=== PATIENT | male | born 1955 | race Two or more races ===

== ENCOUNTER 2020-06-29 10:13 | Emergency (ER) | payer MEDICARE, OTHER, SELFPAY ==
--- NOTE | ~2020-06-29 | CT_ITS ---
EXAMINATION: CT ABDOMEN AND PELVIS WITHOUT CONTRAST CLINICAL INFORMATION: Lower quadrant and left flank pain. COMPARISON: CT abdomen and pelvis 10/21/2025 TECHNIQUE: Multidetector volumetric imaging was performed from the superior aspect of the liver through the pubic symphysis. Sagittal and coronal reformatted images were obtained on the technologist's workstation. This CT examination was performed using dose optimization techniques as appropriate, variously including the following: *Automated exposure control *Adjustment of mA and/or kV according to patient size (this includes techniques or standardized protocols for targeted exams where dose is matched to indication/reason for exam; i.e. extremities or head) *Use of iterative reconstruction technique DLP: 1113 mGy-cm FINDINGS: LUNG BASES: Minimal atelectatic changes as seen in lung bases. Heart size is normal. Suspect small hiatal hernia. LIVER, GALLBLADDER, AND BILIARY TREE: The liver is normal in size, shape, and attenuation. No focal hepatic lesion or biliary ductal dilatation is present. The gallbladder is unremarkable with no evidence of radiopaque gallstones, gallbladder wall thickening, or obvious pericholecystic inflammatory changes. PANCREAS: Unremarkable. SPLEEN: Unremarkable. ADRENAL GLANDS: Unremarkable. KIDNEYS AND URETERS: The kidneys are normal in size, shape, and attenuation. No hydronephrosis, hydroureter, or calculi seen. There is bilateral perinephric stranding. BLADDER: Unremarkable. GASTROINTESTINAL TRACT: There is scattered stool, diverticula and gas seen throughout the colon without distention. There is no mural thickening and pericolic fat stranding seen to suspect diverticulitis at this time. The small bowel loops are normal caliber. There is no free air or free fluid. Appendix is normal caliber. ABDOMINAL WALL: No significant hernia is appreciated. LYMPH NODES: Normal. VASCULAR: Unremarkable. PELVIC VISCERA: There is no free air or free fluid. No pelvic mass seen. OSSEOUS STRUCTURES: There is moderate ventral spondylosis throughout lumbar spine. There is moderate left L5-S1 and bilateral L4-L5 and L3-L4 facet joint arthropathy. No lytic or sclerotic process seen. CT/CT abdomen pelvis wo con IMPRESSION: [Diffuse sigmoid and scattered rest of colon diverticulosis without diverticulitis. There is mild constipation. Degenerative ventral spondylosis throughout lumbar spine.
--- NOTE | 2020-06-29 10:28 | ED.ABDPAIN ---
HPI - Abdominal Pain General Chief Complaint: Abdominal Pain Stated Complaint: LOW ABD PAIN BACK AND HIP Time Seen by Provider: 06/29/20 10:28 Source: patient Mode of arrival: ambulatory Limitations: no limitations History of Present Illness MD elicited complaint: abdominal pain and flank pain Onset (ago): day(s) (4) Pain Consistency: constant Location: LLQ and L flank Severity: moderate Quality: cramping, aching and fullness Radiation: none Migration to: LLQ Exacerbating factors: movement Relieving factors: nothing Associated symptoms: denies other symptoms Treatments prior to arrival: NSAIDs Related Data Previous Rx's Medication Instructions Recorded cefuroxime axetil 500 mg PO BID 10 Days #20 tab 06/29/20 hydrocodone-acetaminophen 1 tab PO Q6H PRN #12 tab 06/29/20 Allergies Allergy/AdvReac Type Severity Reaction Status Date / Time No Known Allergies Allergy Unverified 05/22/20 14:25 [No Known Allergies*] Review of Systems Review of Systems Constitutional : No Weight loss, No Fever, No Chills ENT/Mouth : No sore throat, No Rhinorrhea Eyes: No Swelling, No Redness Cardiovascular : No Chest Pain, No SOB, NoEdema Respiratory : No Cough, No Sputum, No Wheezing Gastrointestinal : no Nausea, no Vomiting, no Diarrhea, positive abdominal Pain, No Hematochezia, No Melena Genitourinary : No Dysuria, No Urinary Frequency, No Hematuria, No Urgency Musculoskeletal : No joint pain, No Myalgias, No Joint Swelling, back pain Skin : No Skin Lesions, No rash Neuro : No Weakness, No Numbness, No Dizziness, No Headache Psych : No Anxiety/Panic, No Depression Heme/Lymph: No Bruising, No Lymphadenopathy Endocrine : No Polyuria, No Polydipsia All other systems reviewed and are negative. Physical Exam Vital Signs: Vital Signs: Last Vital Signs Temp 98.2 F 06/29/20 10:34 Pulse 63 06/29/20 10:34 Resp 18 06/29/20 10:34 Pulse Ox 98 06/29/20 10:34 Body Mass Index 28.8 Appearance: Alert. Oriented X3. No acute distress. Eyes: Pupils equal, round and reactive to light. ENT: Pharynx normal. Neck: Normal inspection. Neck supple. CVS: Normal heart rate and rhythm. Pulses normal. Respiratory: No respiratory distress. Breath sounds normal. Abdomen: Soft and mild ttp in LLQ no rebound or guarding Skin: Skin warm and dry. Normal skin color. Normal skin turgor. Extremities: No lower extremity edema. No calf ttp Neuro: Oriented X 3. No motor deficit. No sensory deficit. Course Course Course Narrative: + UA lactic acid and cultures with Ceftriaxone ordered has had prior UTIs in past but not in the last few years no n/v, no fevers, negative WBC and lactic acid no stone on CT scan at this time DC home with ceftin MDM - Abdominal Pain MDM Narrative Medical decision making narrative: 65 yo male with MG on steroids and pyridostigmine, DM here with LLQ and L flank pain at this time will need labs, CT scan for renal colic/diverticulitis, IV morphine for pain, dispo per results and findings. Differential Diagnosis Differential diagnosis: Likely abdominal pain, calculus of kidney, constipation and diverticulitis; Unlikely aortic dissection Lab Data Result diagrams: 06/29/20 10:47 06/29/20 10:47 Labs: Lab Results 06/29/20 06/29/20 06/29/20 Range/Units 10:46 10:46 10:46 WBC (4.8-10.8) X10*3/uL RBC (4.60-5.80) X10*6/uL Hgb (14.0-18.0) g/dl Hct (42-52) % MCV (80-98) fL MCH (27.0-33.0) pg MCHC (31.0-36.0) g/dl RDW (11.0-16.0) % Plt Count (160-400) X10*3/uL MPV (9.4-12.4) fL Immature Gran % (Auto) (0.0-0.4) % Neut % (Auto) (45-73) % Lymph % (Auto) (20-40) % [place] % (Auto) (2-11) % Eos % (Auto) (0-4) % Baso % (Auto) (0-2) % Lymph # (Auto) (1.2-4.9) X10*3/uL [place] # (Auto) (0.1-1.2) X10*3/uL Eos # (Auto) (0.0-0.4) X10*3/uL Baso # (Auto) (0.0-0.2) X10*3/uL Abs Immat Gran (auto) (0.00-0.03) X10*3/uL Absolute Neuts (auto) (2.0-8.3) X10*3/uL Absolute Nucleated RBC (0.0-0.012) X10*3/uL Nucleated RBC % (auto) (0.0-0.2) /100WBC Hold Blue Top SEE NOTE Sodium (135-145) mmol/L Potassium (3.3-5.1) mmol/L Chloride (96-108) mmol/L Carbon Dioxide (22-29) mmol/L Anion Gap (12-20) BUN (9-16) mg/dL Creatinine (0.5-1.4) mg/dL Estim Creat Clear Calc Estimated GFR Random Glucose (60-115) mg/dL Lactic Acid (0.5-2.0) mmol/L Calcium (8.4-10.2) mg/dL Magnesium 1.9 (1.6-2.6) mg/dL Total Bilirubin 0.5 (0.0-1.0) mg/dL Direct Bilirubin 0.2 (0.0-0.5) mg/dL AST 16 (5-37) U/L ALT 15 (0-40) U/L Alkaline Phosphatase 67 (39-117) U/L Total Protein 6.5 (6.5-8.0) g/dL Albumin 4.1 (3.5-5.0) g/dL Lipase 27 (8-78) U/L Urine Color YELLOW Urine Appearance CLOUDY Urine pH 7.0 (5.0-8.0) Ur Specific [place] 1.020 (1.005-1.025) Urine Protein NEG (NEG-TRACE) MG/DL Urine Glucose (UA) NEG (NEG) MG/DL Urine Ketones NEG (NEG) MG/DL Urine Blood NEG (NEG) Urine Nitrite POS H (NEG) Ur Leukocyte Esterase TRACE H (NEG) Urine RBC 0 (0) /HPF Urine WBC 10-14 H (0-4) /HPF Ur Squamous Epith Cells TRACE /LPF Urine Bacteria 4+ /LPF COVID-19 ([facility]) (Negative) COVID-19 Clin Com 06/29/20 06/29/2006/29/21 Range/Units 10:47 10:47 11:29 WBC 6.0 (4.8-10.8) X10*3/uL RBC 4.45 L (4.60-5.80) X10*6/uL Hgb 13.6 L (14.0-18.0) g/dl Hct 41.5 L (42-52) % MCV 93.3 (80-98) fL MCH 30.6 (27.0-33.0) pg MCHC 32.8 (31.0-36.0) g/dl RDW 13.8 (11.0-16.0) % Plt Count 173 (160-400) X10*3/uL MPV 10.8 (9.4-12.4) fL Immature Gran % (Auto) 0.3 (0.0-0.4) % Neut % (Auto) 78.2 H (45-73) % Lymph % (Auto) 14.5 L (20-40) % [place] % (Auto) 5.2 (2-11) % Eos % (Auto) 1.0 (0-4) % Baso % (Auto) 0.8 (0-2) % Lymph # (Auto) 0.9 L (1.2-4.9) X10*3/uL [place] # (Auto) 0.3 (0.1-1.2) X10*3/uL Eos # (Auto) 0.1 (0.0-0.4) X10*3/uL Baso # (Auto) 0.1 (0.0-0.2) X10*3/uL Abs Immat Gran (auto) 0.02 (0.00-0.03) X10*3/uL Absolute Neuts (auto) 4.7 (2.0-8.3) X10*3/uL Absolute Nucleated RBC 0.000 (0.0-0.012) X10*3/uL Nucleated RBC % (auto) 0.0 (0.0-0.2) /100WBC Hold Blue Top Sodium 140 (135-145) mmol/L Potassium 4.4 (3.3-5.1) mmol/L Chloride 103 (96-108) mmol/L Carbon Dioxide 30 H (22-29) mmol/L Anion Gap 11 L (12-20) BUN 17 H (9-16) mg/dL Creatinine 0.82 (0.5-1.4) mg/dL Estim Creat Clear Calc 117.5 Estimated GFR > 60 Random Glucose 116 H (60-115) mg/dL Lactic Acid 0.9 (0.5-2.0) mmol/L Calcium 9.0 (8.4-10.2) mg/dL Magnesium (1.6-2.6) mg/dL Total Bilirubin (0.0-1.0) mg/dL Direct Bilirubin (0.0-0.5) mg/dL AST (5-37) U/L ALT (0-40) U/L Alkaline Phosphatase (39-117) U/L Total Protein (6.5-8.0) g/dL Albumin (3.5-5.0) g/dL Lipase (8-78) U/L Urine Color Urine Appearance Urine pH (5.0-8.0) Ur Specific [place] (1.005-1.025) Urine Protein (NEG-TRACE) MG/DL Urine Glucose (UA) (NEG) MG/DL Urine Ketones (NEG) MG/DL Urine Blood (NEG) Urine Nitrite (NEG) Ur Leukocyte Esterase (NEG) Urine RBC (0) /HPF Urine WBC (0-4) /HPF Ur Squamous Epith Cells /LPF Urine Bacteria /LPF COVID-19 ([facility]) (Negative) COVID-19 Clin Com 06/29/20 Range/Units 11:29 WBC (4.8-10.8) X10*3/uL RBC (4.60-5.80) X10*6/uL Hgb (14.0-18.0) g/dl Hct (42-52) % MCV (80-98) fL MCH (27.0-33.0) pg MCHC (31.0-36.0) g/dl RDW (11.0-16.0) % Plt Count (160-400) X10*3/uL MPV (9.4-12.4) fL Immature Gran % (Auto) (0.0-0.4) % Neut % (Auto) (45-73) % Lymph % (Auto) (20-40) % [place] % (Auto) (2-11) % Eos % (Auto) (0-4) % Baso % (Auto) (0-2) % Lymph # (Auto) (1.2-4.9) X10*3/uL [place] # (Auto) (0.1-1.2) X10*3/uL Eos # (Auto) (0.0-0.4) X10*3/uL Baso # (Auto) (0.0-0.2) X10*3/uL Abs Immat Gran (auto) (0.00-0.03) X10*3/uL Absolute Neuts (auto) (2.0-8.3) X10*3/uL Absolute Nucleated RBC (0.0-0.012) X10*3/uL Nucleated RBC % (auto) (0.0-0.2) /100WBC Hold Blue Top Sodium (135-145) mmol/L Potassium (3.3-5.1) mmol/L Chloride (96-108) mmol/L Carbon Dioxide (22-29) mmol/L Anion Gap (12-20) BUN (9-16) mg/dL Creatinine (0.5-1.4) mg/dL Estim Creat Clear Calc Estimated GFR Random Glucose (60-115) mg/dL Lactic Acid (0.5-2.0) mmol/L Calcium (8.4-10.2) mg/dL Magnesium (1.6-2.6) mg/dL Total Bilirubin (0.0-1.0) mg/dL Direct Bilirubin (0.0-0.5) mg/dL AST (5-37) U/L ALT (0-40) U/L Alkaline Phosphatase (39-117) U/L Total Protein (6.5-8.0) g/dL Albumin (3.5-5.0) g/dL Lipase (8-78) U/L Urine Color Urine Appearance Urine pH (5.0-8.0) Ur Specific [place] (1.005-1.025) Urine Protein (NEG-TRACE) MG/DL Urine Glucose (UA) (NEG) MG/DL Urine Ketones (NEG) MG/DL Urine Blood (NEG) Urine Nitrite (NEG) Ur Leukocyte Esterase (NEG) Urine RBC (0) /HPF Urine WBC (0-4) /HPF Ur Squamous Epith Cells /LPF Urine Bacteria /LPF COVID-19 ([facility]IANO) Negative (Negative) COVID-19 Clin Com See Note Discharge Plan Discharge Clinical Impression: Acute UTI, Acute left flank pain Patient Disposition: Home, Self-Care Instructions: Urinary Tract Infection in Men (ED) Additional Instructions: return to ED for any worsening symptoms or concerns given IV dose of antibiotics please start oral medications in the morning Prescriptions: New cefuroxime axetil 500 mg tablet 500 mg PO BID 10 Days Qty: 20 RF: 0 hydrocodone-acetaminophen 5-325 mg tablet 1 tab PO Q6H PRN (Reason: pain) Qty: 12 RF: 0 Referrals: Christopher Wang MD [Primary Care Provider] - 2 days (touch base Thursday about your UTI) [facility] Past Medical History Attestation statement: The following information was validated with the patient. Medical History Diabetes Myasthenia gravis Social History Social History (Updated 06/29/20 @ 10:58 by Fabby Mckeon DO) Smoking Status: Never smoker Use of substances other than those prescribed or required for medical reasons: No Advance Directives: No Advance Directives Information Provided: No
[2020-06-29 10:34] VITALS: PULSE 63; RESP 18; TEMP 36.8; O2SAT 98; BMI 28.8
[2020-06-29 10:52] LABS: MANUAL DIFF FLAG NO
[2020-06-29 10:55] LABS: Basophils Absolute Auto 0.1 X10*3/uL (0.0-0.2); Basophils Percent Auto 0.8 % (0-2); Eosinophils Absolute Auto 0.1 X10*3/uL (0.0-0.4); Hematocrit 41.5 % (42-52); Hemoglobin 13.6 g/dl (14.0-18.0); Imm Gran Abs Auto 0.02 X10*3/uL (0.00-0.03); Imm Gran Pct Auto 0.3 % (0.0-0.4); Lymphocytes Absolute Auto 0.9 X10*3/uL (1.2-4.9); Lymphocytes Percent Auto 14.5 % (20-40); Mean Corpuscular HGB Conc 32.8 g/dl (31.0-36.0); Mean Corpuscular Hemoglobin 30.6 pg (27.0-33.0); Mean Corpuscular Volume 93.3 fL (80-98); Mean Platelet Volume 10.8 fL (9.4-12.4); Monocytes Absolute Auto 0.3 X10*3/uL (0.1-1.2); Monocytes Percent Auto 5.2 % (2-11); Neutrophils Absolute Auto 4.7 X10*3/uL (2.0-8.3); Neutrophils Percent Auto 78.2 % (45-73); Platelet Count 173 X10*3/uL (160-400); Red Blood Count 4.45 X10*6/uL (4.60-5.80); Red Cell Distribution Width 13.8 % (11.0-16.0)
[2020-06-29] MEDS: Morphine Sulfate 4 MG/ML CARTRIDGE IVPUSH (10:55)
[2020-06-29 10:59] LABS: Glucose Urine UA NEG (NEG); Leukocyte Esterase Urine TRACE (NEG); Nitrite Urine POS (NEG); UACC Culture Trigger YES; Urine Blood NEG (NEG); Urine Ketones NEG (NEG); Urine Protein NEG (NEG-TRACE)
[2020-06-29 11:02] LABS: Appearance Urine CLOUDY; Color Urine YELLOW
[2020-06-29 11:16] LABS: Anion Gap 11 (12-20); Blood Urea Nitrogen 17 mg/dL (9-16); Carbon Dioxide 30 mmol/L (22-29); Chloride 103 mmol/L (96-108); Creatinine Clr Calc Pharmacy 117.5; Estimated Glomerular Filt Rate > 60; Glucose Random 116 mg/dL (60-115); Potassium 4.4 mmol/L (3.3-5.1); Sodium 140 mmol/L (135-145)
[2020-06-29 11:18] LABS: Alanine Aminotransferase 15 U/L (0-40); Albumin Level 4.1 g/dL (3.5-5.0); Alkaline Phosphatase 67 U/L (39-117); Aspartate Amino Transferase 16 U/L (5-37); Bilirubin Direct 0.2 mg/dL (0.0-0.5); Bilirubin Total 0.5 mg/dL (0.0-1.0); Lipase 27 U/L (8-78); Magnesium 1.9 mg/dL (1.6-2.6); Total Protein 6.5 g/dL (6.5-8.0)
[2020-06-29 11:37] LABS: Bacteria Urine 4+ /LPF; RBC Urine 0 /HPF (0); Squamous Epithelial Cell Urine TRACE /LPF
[2020-06-29 11:55] LABS: Lactic Acid 0.9 mmol/L (0.5-2.0)
[2020-06-29 11:59] LABS: COVID-19 Test Negative (Negative); IDNOW Serial# 9DD0AD1C
[2020-06-29 12:00] VITALS: BP 124/73; PULSE 61; O2SAT 98
[2020-06-29] MEDS: cefTRIAXone sodium 1 GM in 0.9 % Sodium Chloride 50 ML IV (13:03)
== END 2020-06-29 13:38 | disposition home or self-care (01) ==
PROVIDERS: Emergency Provider Emergency Medicine; PCP Internal Medicine
DX: N39.0 Urinary tract infection, site not specified (principal); M54.5 Low back pain; R10.9 Unspecified abdominal pain; Z20.822 Contact with and (suspected) exposure to COVID-19; Z79.899 Other long term (current) drug therapy
CPT/HCPCS: 36415; 74176; 80048; 80076; 81001; 81003; 83605; 83690; 83735; 85025; 87040; 87086; 87088; 87186; 87635; 96361; 96365; 96375; 99284; J0696; J2270

== ENCOUNTER 2020-07-07 11:36 | Emergency (ER) | payer MEDICARE, OTHER, SELFPAY ==
--- NOTE | ~2020-07-07 | CT_ITS ---
EXAMINATION: CT ABDOMEN AND PELVIS WITHOUT CONTRAST CLINICAL INFORMATION: Severe left lower quadrant pain. Left flank pain. COMPARISON: Portions of a previous study 06/29/20 TECHNIQUE: Multidetector volumetric imaging was performed from the superior aspect of the liver through the pubic symphysis. Sagittal and coronal reformatted images were obtained on the technologist's workstation. The patient declined IV contrast This CT examination was performed using dose optimization techniques as appropriate, variously including the following: *Automated exposure control *Adjustment of mA and/or kV according to patient size (this includes techniques or standardized protocols for targeted exams where dose is matched to indication/reason for exam; i.e. extremities or head) *Use of iterative reconstruction technique DLP: 1107 mGy-cm FINDINGS: [employer]er: Gas and fecal residue throughout the colon to level the rectum. No evidence of small bowel obstruction. No definite opaque calculus. Degenerative changes in the spine. LUNG BASES: No suspicious abnormality in the visualized lower chest. There is coronary calcification. There is a small hiatal hernia. LIVER, GALLBLADDER, AND BILIARY TREE: No suspicious focal liver lesion. The liver contour appears smooth. There is no opaque gallstone. No biliary dilation. PANCREAS: No suspicious mass. SPLEEN: Within normal limits ADRENAL GLANDS: Normal KIDNEYS AND URETERS: There is no dilation of the urinary collecting system on either side. No suspicious renal mass. No opaque urinary calculus demonstrated. BLADDER: No suspicious abnormality. The bladder is not fully distended. GASTROINTESTINAL TRACT: There is no localized colonic wall thickening. No localized pericolonic fat stranding. The appendix is normal. There is no significant small bowel dilation. The stomach is not well distended. As described there is a small sliding-type hiatal hernia. ABDOMINAL WALL: No significant hernia is appreciated. LYMPH NODES: There are no measurably enlarged abdominal or pelvic lymph nodes. There is no free intraperitoneal fluid. VASCULAR: There is no abdominal aortic aneurysm. PELVIC VISCERA: No suspicious abnormality OSSEOUS STRUCTURES: Ankylosis of the SI joints. Proliferative changes throughout the spine. CT/CT abdomen pelvis wo con IMPRESSION: No etiology for acute left sided pain. Specifically there is no evidence of urinary obstruction. There is no CT evidence of diverticulitis.
[2020-07-07 11:43] VITALS: BP 134/71; PULSE 66; RESP 20; TEMP 36.6; O2SAT 96; BMI 38.2
--- NOTE | 2020-07-07 12:20 | ED.MALEGU ---
HPI - Male Genitourinary General Chief complaint: Urogenital-Male Stated complaint: groin pain Time Seen by Provider: 07/07/20 11:55 Source: patient and family Mode of arrival: ambulatory Limitations: no limitations History of Present Illness HPI Narrative: 65 y/o male with history of myasthenia gravis on steroids and pyridostigmine, diabetes, history of multiple UTI's presents to the ER with intermittent LLQ and left flank pain for the last 2 days. He was recently seen here on 06/29 with similar pain and was diagnosed with UTI and started on PO cefuroxime and vicoden. He reports his pain was improving with antibiotics however yesterday it started worsening again. Pain is worse with movement and palpation. He denies N/V/D, fever, chills, hematuria, dysuria, frequency or urgency. He took a Vicoden [employer] and his pain is well controlled at rest. He denies scrotal or testicular pain. Pain is sometimes in his left inguinal area when he moves wrong. MD Complaint: other (LLQ and left flank pain ) Onset (ago): day(s) (2) Duration: intermittent Location: left inguinal region, left flank and abdomen Radiation: left flank Severity: severe Severity scale (1-10): 9 Quality: sharp Relieving factors: rest Exacerbating factors: palpation and movement Context: new medication Associated symptoms: Reports denies other symptoms Related Data Sexually active: No Previous Rx's Medication Instructions Recorded cefuroxime axetil 500 mg PO BID 10 Days #20 tab 06/29/20 hydrocodone-acetaminophen 1 tab PO Q6H PRN #12 tab 06/29/20 naproxen 500 mg PO BID PRN #20 tab 07/07/20 Allergies Allergy/AdvReac Type Severity Reaction Status Date / Time No Known Allergies Allergy Verified 07/07/20 11:46 [No Known Allergies*] Review of Systems Review of Systems: Constitutional: No Fever, No Chills ENT/Mouth: No sore throat, No Rhinorrhea, No Swallowing Difficulty Cardiovascular: No Chest Pain, No SOB, No Orthopnea, No Edema Respiratory: No Cough, No Sputum, No Wheezing, No dyspnea Gastrointestinal: No Nausea, No Vomiting, No Diarrhea, + abdominal Pain, No Hematochezia, No Melena, +Flank pain Genitourinary: No Dysuria, No Urinary Frequency, No Hematuria Musculoskeletal: No joint pain, No Myalgias Skin: No Skin Lesions, No rash Neuro: No Weakness, No Numbness, No Dizziness, No Headache Psych: No Anxiety/Panic, No Depression Heme/Lymph: No Bruising, No Lymphadenopathy Endocrine: No Polyuria, No Polydipsia [facility] Past Medical History Attestation statement: The following information was validated with the patient. Medical History Diabetes Myasthenia gravis Social History Social History (Updated 06/29/20 @ 10:58 by Fabby Mckeon DO) Alcohol intake: never Smoking Status: Never smoker Use of substances other than those prescribed or required for medical reasons: No Advance Directives: No Advance Directives Information Provided: No Physical Exam Vital Signs: Vital Signs: Last Vital Signs Temp 98.0 F 07/07/20 12:38 Pulse 63 07/07/20 12:38 Resp 18 07/07/20 12:38 BP 103/53 L 07/07/20 12:38 Pulse Ox 96 07/07/20 12:38 Body Mass Index 38.2 Appearance: Alert. Oriented X3. No acute distress. Eyes: Pupils equal, round and reactive to light. ENT: Pharynx normal. Neck: Normal inspection. Neck supple. CVS: Normal heart rate and rhythm. Pulses normal. Respiratory: No respiratory distress. Breath sounds normal. Abdomen: Obese, Soft with LLQ tenderness to deep palpation, left suprapubic tenderness, +BS x4. No CVA tenderness. Left lower back with mild soft tissue tenderness. : normal appearing external genitalia, no testicular tenderness, swelling or masses, no inguinal hernias palpable Skin: Skin warm and dry. Normal skin color. Normal skin turgor. No rashes. Extremities: No lower extremity edema. Neuro: Oriented X 3. No motor deficit. No sensory deficit. Course Course Course Narrative: 65 y/o male with recently diagnosed UTI presenting with LLQ and left flank pain. Concern for ascending urinary tract infection vs diverticulitis. Prior CT showing diffuse sigmoid diverticulosis. Will repeat labs and imaging. Reevaluation(s) Reevaluation #1: UA negative. Labs are unremarkable. CT scan is negative. Patient is likely experiencing muskuloskeletal pain, as it is worse with movement. His exam is unremarkable. Pain is minimal at rest, only with lateral movement. results were discussed with patient. He is agreeable with discharge home with plan to f/u with PCP next week. He was instructed to return to ER if pain worsens. Stable for d/c home with rest and trial of NSAID for MSK pain. MDM - Male Genitourinary Lab Data Result diagrams: 07/07/20 12:59 07/07/20 12:58 Labs: Lab Results 07/07/20 07/07/20 07/07/20 Range/Units 12:58 12:58 12:58 WBC (4.8-10.8) X10*3/uL RBC (4.60-5.80) X10*6/uL Hgb (14.0-18.0) g/dl Hct (42-52) % MCV (80-98) fL MCH (27.0-33.0) pg MCHC (31.0-36.0) g/dl RDW (11.0-16.0) % Plt Count (160-400) X10*3/uL MPV (9.4-12.4) fL Immature Gran % (Auto) (0.0-0.4) % Neut % (Auto) (45-73) % Lymph % (Auto) (20-40) % [place] % (Auto) (2-11) % Eos % (Auto) (0-4) % Baso % (Auto) (0-2) % Lymph # (Auto) (1.2-4.9) X10*3/uL [place] # (Auto) (0.1-1.2) X10*3/uL Eos # (Auto) (0.0-0.4) X10*3/uL Baso # (Auto) (0.0-0.2) X10*3/uL Abs Immat Gran (auto) (0.00-0.03) X10*3/uL Absolute Neuts (auto) (2.0-8.3) X10*3/uL Absolute Nucleated RBC (0.0-0.012) X10*3/uL Nucleated RBC % (auto) (0.0-0.2) /100WBC Hold Blue Top SEE NOTE Sodium 140 (135-145) mmol/L Potassium 4.5 (3.3-5.1) mmol/L Chloride 102 (96-108) mmol/L Carbon Dioxide 29 (22-29) mmol/L Anion Gap 14 (12-20) BUN 15 (9-16) mg/dL Creatinine 0.84 (0.5-1.4) mg/dL Estim Creat Clear Calc 128.0 Estimated GFR > 60 Random Glucose 107 (60-115) mg/dL Lactic Acid 0.9 (0.5-2.0) mmol/L Calcium 9.2 (8.4-10.2) mg/dL Magnesium 2.0 (1.6-2.6) mg/dL Total Bilirubin 1.0 (0.0-1.0) mg/dL Direct Bilirubin 0.3 (0.0-0.5) mg/dL AST 18 (5-37) U/L ALT 15 (0-40) U/L Alkaline Phosphatase 60 (39-117) U/L Total Protein 6.4 L (6.5-8.0) g/dL Albumin 4.0 (3.5-5.0) g/dL Urine Color Urine Appearance Urine pH (5.0-8.0) Ur Specific [place] (1.005-1.025) Urine Protein (NEG-TRACE) MG/DL Urine Glucose (UA) (NEG) MG/DL Urine Ketones (NEG) MG/DL Urine Blood (NEG) Urine Nitrite (NEG) Ur Leukocyte Esterase (NEG) 07/07/20 07/07/20 Range/Units 12:59 12:59 WBC 5.6 (4.8-10.8) X10*3/uL RBC 4.28 L (4.60-5.80) X10*6/uL Hgb 13.1 L (14.0-18.0) g/dl Hct 40.3 L (42-52) % MCV 94.2 (80-98) fL MCH 30.6 (27.0-33.0) pg MCHC 32.5 (31.0-36.0) g/dl RDW 13.5 (11.0-16.0) % Plt Count 166 (160-400) X10*3/uL MPV 10.6 (9.4-12.4) fL Immature Gran % (Auto) 0.4 (0.0-0.4) % Neut % (Auto) 75.5 H (45-73) % Lymph % (Auto) 17.9 L (20-40) % [place] % (Auto) 5.0 (2-11) % Eos % (Auto) 0.7 (0-4) % Baso % (Auto) 0.5 (0-2) % Lymph # (Auto) 1.0 L (1.2-4.9) X10*3/uL [place] # (Auto) 0.3 (0.1-1.2) X10*3/uL Eos # (Auto) 0.0 (0.0-0.4) X10*3/uL Baso # (Auto) 0.0 (0.0-0.2) X10*3/uL Abs Immat Gran (auto) 0.02 (0.00-0.03) X10*3/uL Absolute Neuts (auto) 4.2 (2.0-8.3) X10*3/uL Absolute Nucleated RBC 0.000 (0.0-0.012) X10*3/uL Nucleated RBC % (auto) 0.0 (0.0-0.2) /100WBC Hold Blue Top Sodium (135-145) mmol/L Potassium (3.3-5.1) mmol/L Chloride (96-108) mmol/L Carbon Dioxide (22-29) mmol/L Anion Gap (12-20) BUN (9-16) mg/dL Creatinine (0.5-1.4) mg/dL Estim Creat Clear Calc Estimated GFR Random Glucose (60-115) mg/dL Lactic Acid (0.5-2.0) mmol/L Calcium (8.4-10.2) mg/dL Magnesium (1.6-2.6) mg/dL Total Bilirubin (0.0-1.0) mg/dL Direct Bilirubin (0.0-0.5) mg/dL AST (5-37) U/L ALT (0-40) U/L Alkaline Phosphatase (39-117) U/L Total Protein (6.5-8.0) g/dL Albumin (3.5-5.0) g/dL Urine Color YELLOW Urine Appearance CLEAR Urine pH 7.5 (5.0-8.0) Ur Specific [place] 1.020 (1.005-1.025) Urine Protein TRACE (NEG-TRACE) MG/DL Urine Glucose (UA) NEG (NEG) MG/DL Urine Ketones NEG (NEG) MG/DL Urine Blood NEG (NEG) Urine Nitrite NEG (NEG) Ur Leukocyte Esterase NEG (NEG) Critical Care Time Critical Care Time Critical Care Time: No Discharge Plan Discharge Clinical Impression: Back pain Qualifiers: Back pain location: low back pain Chronicity: acute Back pain laterality: left Sciatica presence: without sciatica Qualified Code(s): M54.5 - Low back pain Patient Disposition: Home, Self-Care Instructions: Acute Low Back Pain (ED), Groin Strain (ED) Additional Instructions: Your urine test is now negative for infection. Complete the antibiotics that were previously prescribed. Your blood workup was unremarkable. Your CT scan was negative. Your pain is likely muscular. No bending, lifting or twisting. Use ice several times per day for 20 minutes at a time for the next 48 hours and then change to heat. Take medications as prescribed to help with pain and discomfort. Follow up with your Primary Care Doctor this week. If your pain worsens, if you develop new numbness, tingling, weakness, loss of function or incontinence call 911 or come back to the ER right away for evaluation. Prescriptions: New naproxen 500 mg tablet 500 mg PO BID PRN (Reason: pain) Qty: 20 RF: 0 No Action cefuroxime axetil 500 mg tablet 500 mg PO BID 10 Days Qty: 20 RF: 0 hydrocodone-acetaminophen 5-325 mg tablet 1 tab PO Q6H PRN (Reason: pain) Qty: 12 RF: 0
[2020-07-07 12:38] VITALS: BP 103/53; PULSE 63; RESP 18; TEMP 36.7; O2SAT 96
[2020-07-07 13:05] LABS: MANUAL DIFF FLAG NO
[2020-07-07 13:21] LABS: Basophils Percent Auto 0.5 % (0-2); Eosinophils Percent Auto 0.7 % (0-4); Glucose Urine UA NEG (NEG); Hematocrit 40.3 % (42-52); Hemoglobin 13.1 g/dl (14.0-18.0); Imm Gran Abs Auto 0.02 X10*3/uL (0.00-0.03); Imm Gran Pct Auto 0.4 % (0.0-0.4); Leukocyte Esterase Urine NEG (NEG); Lymphocytes Percent Auto 17.9 % (20-40); Mean Corpuscular HGB Conc 32.5 g/dl (31.0-36.0); Mean Corpuscular Hemoglobin 30.6 pg (27.0-33.0); Mean Corpuscular Volume 94.2 fL (80-98); Mean Platelet Volume 10.6 fL (9.4-12.4); Monocytes Absolute Auto 0.3 X10*3/uL (0.1-1.2); Neutrophils Absolute Auto 4.2 X10*3/uL (2.0-8.3); Neutrophils Percent Auto 75.5 % (45-73); Nitrite Urine NEG (NEG); PH 7.5 (5.0-8.0); Platelet Count 166 X10*3/uL (160-400); Red Blood Count 4.28 X10*6/uL (4.60-5.80); Red Cell Distribution Width 13.5 % (11.0-16.0); Urine Blood NEG (NEG); Urine Ketones NEG (NEG); Urine Protein TRACE MG/DL (NEG-TRACE); White Blood Count 5.6 X10*3/uL (4.8-10.8)
[2020-07-07 13:23] LABS: Lactic Acid 0.9 mmol/L (0.5-2.0)
[2020-07-07 13:25] LABS: Appearance Urine CLEAR; Color Urine YELLOW
[2020-07-07 13:29] LABS: Alanine Aminotransferase 15 U/L (0-40); Alkaline Phosphatase 60 U/L (39-117); Anion Gap 14 (12-20); Aspartate Amino Transferase 18 U/L (5-37); Bilirubin Direct 0.3 mg/dL (0.0-0.5); Blood Urea Nitrogen 15 mg/dL (9-16); Calcium 9.2 mg/dL (8.4-10.2); Carbon Dioxide 29 mmol/L (22-29); Chloride 102 mmol/L (96-108); Estimated Glomerular Filt Rate > 60; Glucose Random 107 mg/dL (60-115); Potassium 4.5 mmol/L (3.3-5.1); Sodium 140 mmol/L (135-145); Total Protein 6.4 g/dL (6.5-8.0)
[2020-07-07 17:13] VITALS: BP 118/68; PULSE 70; RESP 18; TEMP 36.8; O2SAT 97
== END 2020-07-07 17:24 | disposition home or self-care (01) ==
PROVIDERS: Physician Assistant; Emergency Provider Emergency Medicine; PCP Internal Medicine
DX: M54.5 Low back pain (principal); E11.9 Type 2 diabetes mellitus without complications; Z87.440 Personal history of urinary (tract) infections; G70.00 Myasthenia gravis without (acute) exacerbation; Z79.52 Long term (current) use of systemic steroids
CPT/HCPCS: 36415; 74176; 80048; 80076; 81003; 83605; 83735; 85025; 87040; 99284

== ENCOUNTER 2020-08-31 05:02 | Emergency (ER) | payer MEDICARE, OTHER, SELFPAY ==
--- NOTE | ~2020-08-31 | CT_ITS ---
EXAMINATION: CT HEAD WITHOUT CONTRAST CLINICAL INFORMATION: Right-sided facial tingling x10 days COMPARISON: 02/17/2015 TECHNIQUE: Contiguous axial imaging was performed from the skull base to vertex without intravenous administration of contrast. This CT examination was performed using dose optimization techniques as appropriate, variously including the following: *Automated exposure control *Adjustment of mA and/or kV according to patient size (this includes techniques or standardized protocols for targeted exams where dose is matched to indication/reason for exam; i.e. extremities or head) *Use of iterative reconstruction technique DLP: 873 mGy-cm FINDINGS: There is no evidence of acute intracranial hemorrhage or territorial infarction. No abnormal mass effect or midline shift is seen. Osorio to white matter differentiation is well preserved. No extra-axial fluid collections are identified. The ventricles are normal in size. There is no abnormal attenuation within the brain parenchyma. The osseous structures and soft tissues are normal. The mastoid air cells and visualized portions of the paranasal sinuses are well aerated. CT/CT head/brain wo con IMPRESSION: No acute intracranial pathology.
[2020-08-31 05:11] VITALS: BP 124/78; PULSE 71; RESP 18; TEMP 36.4; O2SAT 97; BMI 39.2
--- NOTE | 2020-08-31 06:31 | ED_ITS ---
HPI - Neuro Symptoms/Deficit General Chief Complaint: Neuro Symptoms/Deficit Stated Complaint: facial tingling Time Seen by Provider: 08/31/20 06:30 Source: patient Mode of arrival: ambulatory Limitations: no limitations History of Present Illness HPI Narrative: 65 yo male with hx of MG and DM on pyridostigmine comes in with c/o R sided facial tingling since last Thursday (10 days ago) denies dental issues or trauma, this is not consistent with his prior MG flares. Saw PCP scheduled CT scan for 09/20 came today because the tingling is bothering him Onset (ago): day(s) (10) Location: right face History of same: No Severity: mild Quality: tingling Relieving factors: none Exacerbating factors: none Context: sudden onset On Anticoagulants: No Associated symptoms: denies other symptoms Treatments Prior to Arrival: none Related Data Previous Rx's Medication Instructions Recorded cefuroxime axetil 500 mg PO BID 10 Days #20 tab 06/29/20 hydrocodone-acetaminophen 1 tab PO Q6H PRN #12 tab 06/29/20 naproxen 500 mg PO BID PRN #20 tab 07/07/20 Allergies Allergy/AdvReac Type Severity Reaction Status Date / Time No Known Allergies Allergy Verified 07/07/20 11:46 [No Known Allergies*] Review of Systems Review of Systems: Constitutional : No Fever, No Chills ENT/Mouth : No sore throat, No Rhinorrhea Eyes: No Eye Pain, No Swelling, No Redness Cardiovascular : No Chest Pain, No SOB Gastrointestinal : No Nausea, No Vomiting, No Diarrhea Genitourinary : No Dysuria, No Urinary Frequency Musculoskeletal : No joint pain, No Myalgias Skin : No Skin Lesions, No rash Neuro : No Weakness, pos Numbness, No Dizziness, No Headache Psych : No Anxiety/Panic, No Depression All other systems reviewed and are negative [facility] Past Medical History Attestation statement: The following information was validated with the patient. Medical History Diabetes Myasthenia gravis Social History Social History (Updated 08/31/20 @ 06:45 by Fabby Mckeon DO) Alcohol intake: never Patient Tobacco Use Status: Never used Tobacco Use of substances other than those prescribed or required for medical reasons: No Advance Directives: No Physical Exam Vital Signs: Vital Signs: Last Vital Signs Temp 97.9 F 08/31/20 07:13 Pulse 58 08/31/20 07:13 Resp 16 08/31/20 07:13 BP 103/56 L 08/31/20 07:13 Pulse Ox 96 08/31/20 07:13 Body Mass Index 39.2 Appearance: Alert. Oriented X3. No acute distress. Eyes: Pupils equal, round and reactive to light. ENT: Pharynx normal. Neck: Normal inspection. Neck supple. CVS: Normal heart rate and rhythm. Pulses normal. Respiratory: No respiratory distress. Breath sounds normal. Abdomen: Soft and non-tender. Skin: Skin warm and dry. Normal skin color. Normal skin turgor. Extremities: No lower extremity edema. No calf ttp Neuro: Oriented X 3. No motor deficit. No sensory deficit. CN 2-12 grossly intact Course Course Course Narrative: no acute findings, stable for DC with 10 days of symptoms MDM - Neuro Symptoms/Deficit MDM Narrative Medical decision making narrative: 65 yo male with hx of MG and DM on pyridostigmine comes in with c/o R sided facial tingling since last Thursday (10 days ago) denies dental issues or trauma, this is not consistent with his prior MG flares. Saw PCP scheduled MRI for 09/20 at this time patient will need basic labs and lytes as well as CT head for possible stroke though it is a sensation of tingling and he is neurologically intact on my exam - not consistent with his prior MG flares, denies dental issues or trauma, no tick bites, no signs of bells palsy and he has no vesicular rash to suggest zoster. If CT scan negative will have him follow up with his PCP Lab Data Result diagrams: 08/31/20 07:37 08/31/20 07:37 Labs: Lab Results 08/31/20 08/31/20 Range/Units 07:37 07:37 WBC 5.9 (4.8-10.8) X10*3/uL RBC 4.25 L (4.60-5.80) X10*6/uL Hgb 12.9 L (14.0-18.0) g/dl Hct 39.3 L (42-52) % MCV 92.5 (80-98) fL MCH 30.4 (27.0-33.0) pg MCHC 32.8 (31.0-36.0) g/dl RDW 14.1 (11.0-16.0) % Plt Count 164 (160-400) X10*3/uL MPV 10.3 (9.4-12.4) fL Immature Gran % (Auto) 0.3 (0.0-0.4) % Neut % (Auto) 59.1 (45-73) % Lymph % (Auto) 31.3 (20-40) % [place] % (Auto) 6.6 (2-11) % Eos % (Auto) 1.7 (0-4) % Baso % (Auto) 1.0 (0-2) % Lymph # (Auto) 1.8 (1.2-4.9) X10*3/uL [place] # (Auto) 0.4 (0.1-1.2) X10*3/uL Eos # (Auto) 0.1 (0.0-0.4) X10*3/uL Baso # (Auto) 0.1 (0.0-0.2) X10*3/uL Abs Immat Gran (auto) 0.02 (0.00-0.03) X10*3/uL Absolute Neuts (auto) 3.5 (2.0-8.3) X10*3/uL Absolute Nucleated RBC 0.000 (0.0-0.012) X10*3/uL Nucleated RBC % (auto) 0.0 (0.0-0.2) /100WBC Sodium 142 (135-145) mmol/L Potassium 4.0 (3.3-5.1) mmol/L Chloride 107 (96-108) mmol/L Carbon Dioxide 29 (22-29) mmol/L Anion Gap 10 L (12-20) BUN 15 (9-16) mg/dL Creatinine 0.82 (0.5-1.4) mg/dL Estim Creat Clear Calc 132.8 Estimated GFR > 60 Random Glucose 87 (60-115) mg/dL Calcium 8.9 (8.4-10.2) mg/dL Magnesium 1.9 (1.6-2.6) mg/dL NIH Stroke Scale Internal: Initial- Upon Arrival Level of Consciousness: Alert Level of Consciousness Questions: Answers both questions correctly Level of Consciousness Commands: Performs both tasks correctly Best Gaze: Normal Visual: No visual loss Facial Palsy: Normal Motor Arm (Right): No drift Motor Arm (Left): No drift Motor Leg (Right): No drift Motor Leg (Left): No drift Limb Ataxia: Absent Sensory: Normal Best Language: No aphasia Dysarthia: Normal Extinction and Inattention: No abnormality Score: 0 Discharge Plan Discharge Clinical Impression: Facial paresthesia Patient Disposition: Home, Self-Care Instructions: Paresthesia (ED) Additional Instructions: return to ED for any worsening symptoms or concerns There is no evidence of acute intracranial hemorrhage or territorial infarction. No abnormal mass effect or midline shift is seen. Osorio to white matter differentiation is well preserved. No extra-axial fluid collections are identified. The ventricles are normal in size. There is no abnormal attenuation within the brain parenchyma. The osseous structures and soft tissues are normal. The mastoid air cells and visualized portions of the paranasal sinuses are well aerated. CT/CT head/brain wo con IMPRESSION: No acute intracranial pathology. Prescriptions: No Action cefuroxime axetil 500 mg tablet 500 mg PO BID 10 Days Qty: 20 RF: 0 hydrocodone-acetaminophen 5-325 mg tablet 1 tab PO Q6H PRN (Reason: pain) Qty: 12 RF: 0 naproxen 500 mg tablet 500 mg PO BID PRN (Reason: pain) Qty: 20 RF: 0 Referrals: Physician,Unknown [Primary Care Provider] - 2 days
[2020-08-31 07:13] VITALS: BP 103/56; PULSE 58; RESP 16; TEMP 36.6; O2SAT 96
--- NOTE | 2020-08-31 07:26 | PC.NURSE ---
PT TOOK HIS OWN MED (MESTINON 50MG PO) MD AWARE AND OKAYED. PT OFF TO CT SCAN
[2020-08-31 07:43] LABS: Basophils Absolute Auto 0.1 X10*3/uL (0.0-0.2); Eosinophils Absolute Auto 0.1 X10*3/uL (0.0-0.4); Eosinophils Percent Auto 1.7 % (0-4); Hematocrit 39.3 % (42-52); Hemoglobin 12.9 g/dl (14.0-18.0); Imm Gran Abs Auto 0.02 X10*3/uL (0.00-0.03); Imm Gran Pct Auto 0.3 % (0.0-0.4); Lymphocytes Absolute Auto 1.8 X10*3/uL (1.2-4.9); Lymphocytes Percent Auto 31.3 % (20-40); MANUAL DIFF FLAG NO; Mean Corpuscular HGB Conc 32.8 g/dl (31.0-36.0); Mean Corpuscular Hemoglobin 30.4 pg (27.0-33.0); Mean Corpuscular Volume 92.5 fL (80-98); Mean Platelet Volume 10.3 fL (9.4-12.4); Monocytes Absolute Auto 0.4 X10*3/uL (0.1-1.2); Monocytes Percent Auto 6.6 % (2-11); Neutrophils Absolute Auto 3.5 X10*3/uL (2.0-8.3); Neutrophils Percent Auto 59.1 % (45-73); Platelet Count 164 X10*3/uL (160-400); Red Blood Count 4.25 X10*6/uL (4.60-5.80); Red Cell Distribution Width 14.1 % (11.0-16.0); White Blood Count 5.9 X10*3/uL (4.8-10.8)
[2020-08-31 08:12] LABS: Anion Gap 10 (12-20); Blood Urea Nitrogen 15 mg/dL (9-16); Calcium 8.9 mg/dL (8.4-10.2); Carbon Dioxide 29 mmol/L (22-29); Chloride 107 mmol/L (96-108); Creatinine Clr Calc Pharmacy 132.8; Estimated Glomerular Filt Rate > 60; Glucose Random 87 mg/dL (60-115); Magnesium 1.9 mg/dL (1.6-2.6); Sodium 142 mmol/L (135-145)
== END 2020-08-31 08:32 | disposition home or self-care (01) ==
PROVIDERS: Emergency Provider Emergency Medicine
DX: R20.2 Paresthesia of skin (principal); G70.00 Myasthenia gravis without (acute) exacerbation; E11.9 Type 2 diabetes mellitus without complications; Z79.899 Other long term (current) drug therapy
CPT/HCPCS: 36415; 70450; 80048; 83735; 85025; 99284

== ENCOUNTER 2021-04-03 08:14 | Outpatient (REF) | payer MEDICARE, OTHER, SELFPAY ==
--- NOTE | ~2021-04-03 | XR_ITS ---
EXAMINATION: XR SHOULDER, RIGHT CLINICAL INFORMATION: Pain COMPARISON: None TECHNIQUE: AP external rotation, Grashey, scapular Y, and axillary views of the right shoulder. FINDINGS: There is loss of glenohumeral joint space and AC joint space with periarticular spurring. No loose bodies or joint effusion suspected. No fracture or dislocation. XR/XR shoulder RT min 2V IMPRESSION: Degenerative arthritic changes right shoulder. No visible acute fracture or dislocation seen.
== END 2021-04-03 08:15 | disposition home or self-care (01) ==
LOC: HO.XRAY 08:14
PROVIDERS: PCP Internal Medicine; Visit Provider Internal Medicine
DX: M25.511 Pain in right shoulder (principal)
CPT/HCPCS: 73030

== ENCOUNTER → 2021-04-29 08:51 | Outpatient (BNVA) | payer MEDICARE, OTHER, SELFPAY | PROVIDERS: PCP Internal Medicine; Visit Provider Orthopaedic Surgery | DX: M75.41 Impingement syndrome of right shoulder (principal); E11.9 Type 2 diabetes mellitus without complications | CPT/HCPCS: 20610; 99202; J1100 ==

== ENCOUNTER 2021-05-15 08:43 | Outpatient (RCR) | payer MEDICARE, OTHER, SELFPAY ==
--- NOTE | 2021-05-15 09:44 | MHC.PT.EP ---
[facility] [place] Office [place] Office [place] Office [address] Lis Garber [address] [phone] F: [phone] F: [phone] F: [phone] F: [phone] Physical Therapy Plan of Care Date of Evaluation: Date of Surgery: Diagnosis: subacromial impingement Assessment: 65 y/o RHD male referred to PT with subacromial impingement R shoulder. S/s consistent with subacromial impingement and ? RTC tear resulting in pain and difficulty with reaching overhead, grooming, sleeping throughout the night and hobbies that include drumming and painting. Currently he presents with limited shoulder A/PROM, decreased strength of R shoulder (especially ER and flexors), increased shoulder shrug with FE, increased pain and TTP R AC joint as well as supraspinatus, and impaired postural awareness. Recommend PT 2x/week for 6 weeks to address impairments, implement HEP, and optimize functional mobility. Frequency and Duration: The patient will be seen 2x/week for 6 weeks Short Term Goals: 4 weeks 1. Compliant with HEP 2. Improve R shoulder AROM by 20 degrees [employer] Goals: 6 weeks 1. I with HEP and self management of sx 2. Improve R shoulder strength by one grade to faciliate reaching overhead 3. Pt will be able to groom with pain < 3/10 Treatment Plan: Modalities to reduce pain, spasms and effusion. Manual therapy to restore motion and function. Therapeutic exercise to improve strength and flexibility. Neuromuscular re-education for posture and balance. Therapeutic activities to return to functional activities of daily living. Electronically signed by: Caren Avendaño PT Please sign and return to therapist. Thank you for your referral.
--- NOTE | 2021-05-29 11:16 | MHC.PT.DC ---
[facility] [place] Office [place] Office [place] Office [address] Lis Garber [address] [phone] F: [phone] F: [phone] F: [phone] F: [phone] Physical Therapy Discharge Report Diagnosis: subacromial impingement Date of Surgery: Date of Evaluation: 05/15/21 Date of Discharge: 05/29/21 Treatments to Date: 1 Cancellations to Date: 1 No Shows to Date: 2 Discharge Status: Visit Non-compliance Discharge Summary: He has not attended since initial evaluation with 2 cancels and 2 no shows. Electronically signed by: Caren Avendaño PT Please sign and return to therapist. Thank you for your referral.
== END 2021-05-29 11:17 | disposition home or self-care (01) ==
LOC: HO.PT 08:43
PROVIDERS: PCP Internal Medicine; Visit Provider Orthopaedic Surgery
DX: M75.41 Impingement syndrome of right shoulder (principal)
CPT/HCPCS: 97110; 97162

== ENCOUNTER 2022-01-06 08:55 | Outpatient (REF) | payer MEDICARE, OTHER, SELFPAY ==
--- NOTE | ~2022-01-06 | US_ITS ---
EXAMINATION: US ABDOMEN COMPLETE CLINICAL INFORMATION: Periumbilical pain. COMPARISON: CT abdomen and pelvis without contrast 07/07/2020. TECHNIQUE: Real-time imaging of the abdominal viscera. Technically limited study secondary to body habitus. FINDINGS: Limited examination due to patient's body habitus and shadowing from overlying bowel gas. PANCREAS: The pancreatic head appears within normal limits. The calvarium body of the pancreas are obscured by overlying bowel gas. ABDOMINAL AORTA: The proximal, mid, and distal segments are normal in caliber. INFERIOR VENA CAVA: Visualized portions are normal. LIVER: The liver is normal in size. The liver contour is normal. Increased echogenicity. No focal hepatic lesion. There is no intrahepatic biliary duct dilatation seen. GALLBLADDER: The gallbladder is physiologically distended. Multiple mobile gallstones are present. No evidence of gallbladder wall thickening or pericholecystic fluid. COMMON BILE DUCT: Normal in caliber measuring 0.5 cm in diameter. RIGHT KIDNEY: Normal. No hydronephrosis. No renal calculi or focal parenchymal lesions. The kidney measures 12.8 cm in maximum dimension. LEFT KIDNEY: Normal. No hydronephrosis. No renal calculi or focal parenchymal lesions. The kidney measures 13.5 cm in maximum dimension. SPLEEN: Normal. The spleen measures 13.6 cm in maximum dimension. FREE FLUID: None. US/US abdomen complete IMPRESSION: 1. Limited examination due to patient's body habitus and shadowing from overlying bowel gas. 2. Cholelithiasis but no sonographic evidence of acute cholecystitis. 3. Increased hepatic echogenicity is nonspecific and could be seen in the setting of hepatic steatosis or hepatocellular disease.
== END 2022-01-06 08:56 | disposition home or self-care (01) ==
LOC: HO.US 08:55
PROVIDERS: Visit Provider Internal Medicine Gastroenterology
DX: R10.33 Periumbilical pain (principal); K92.89 Other specified diseases of the digestive system
CPT/HCPCS: 76700

== ENCOUNTER → 2022-02-28 08:20 | Outpatient (BNVA) | payer MEDICARE, OTHER, SELFPAY | PROVIDERS: PCP Internal Medicine; Visit Provider Surgery | DX: K80.20 Calculus of gallbladder without cholecystitis without obstruction (principal); R10.11 Right upper quadrant pain; E11.9 Type 2 diabetes mellitus without complications; G70.00 Myasthenia gravis without (acute) exacerbation; I10 Essential (primary) hypertension; G47.33 Obstructive sleep apnea (adult) (pediatric) | CPT/HCPCS: 99202 ==

== ENCOUNTER 2022-02-28 09:12 | Outpatient (REF) | payer MEDICARE, OTHER, SELFPAY ==
[2022-02-28 09:18] LABS: MANUAL DIFF FLAG NO
[2022-02-28 10:23] LABS: Basophils Absolute Auto 0.1 X10*3/uL (0.0-0.2); Basophils Percent Auto 0.9 % (0-2); Eosinophils Absolute Auto 0.1 X10*3/uL (0.0-0.4); Eosinophils Percent Auto 1.6 % (0-4); Hematocrit 41.9 % (42.0-52.0); Hemoglobin 13.7 g/dl (14.0-18.0); Imm Gran Abs Auto 0.02 X10*3/uL (0.00-0.03); Imm Gran Pct Auto 0.3 % (0.0-0.4); Lymphocytes Absolute Auto 1.4 X10*3/uL (1.2-4.9); Mean Corpuscular HGB Conc 32.7 g/dl (31.0-36.0); Mean Corpuscular Hemoglobin 29.7 pg (27.0-33.0); Mean Corpuscular Volume 90.9 fL (80.0-98.0); Monocytes Absolute Auto 0.4 X10*3/uL (0.1-1.2); Monocytes Percent Auto 5.8 % (2-11); Neutrophils Absolute Auto 5.6 x10*3/uL (2.0-8.3); Neutrophils Percent Auto 73.4 % (45-73); Platelet Count 203 X10*3/uL (160-400); Red Blood Count 4.61 X10*6/uL (4.60-5.80); Red Cell Distribution Width 13.7 % (11.0-16.0); White Blood Count 7.6 X10*3/uL (4.8-10.8)
[2022-02-28 11:16] LABS: Alanine Aminotransferase 22 U/L (0-40); Albumin Level 4.2 g/dL (3.5-5.0); Alkaline Phosphatase 72 U/L (39-117); Anion Gap 11 (12-20); Aspartate Amino Transferase 21 U/L (5-37); Bilirubin Total 0.5 mg/dL (0.0-1.0); Blood Urea Nitrogen 12 mg/dL (9-16); Calcium 9.4 mg/dL (8.4-10.2); Carbon Dioxide 31 mmol/L (22-29); Chloride 102 mmol/L (96-108); Estimated Glomerular Filt Rate > 60; Glucose Random 91 mg/dL (60-115); Potassium 4.3 mmol/L (3.3-5.1); Sodium 140 mmol/L (135-145); Total Protein 6.8 g/dL (6.5-8.0)
[2022-02-28 11:37] LABS: Estimated Average Glucose 111 mg/dL; Hemoglobin A1c % 5.5 %
== END 2022-02-28 09:13 | disposition home or self-care (01) ==
LOC: HO.LAB 09:12
PROVIDERS: Visit Provider Surgery
DX: K80.20 Calculus of gallbladder without cholecystitis without obstruction (principal); G70.00 Myasthenia gravis without (acute) exacerbation; R10.11 Right upper quadrant pain; E11.9 Type 2 diabetes mellitus without complications; I10 Essential (primary) hypertension; Z79.899 Other long term (current) drug therapy
CPT/HCPCS: 36415; 80053; 83036; 84134; 85025

== ENCOUNTER → 2022-03-07 08:18 | Outpatient (BNVA) | payer MEDICARE, SELFPAY | PROVIDERS: PCP Internal Medicine; Visit Provider Surgery | DX: K80.20 Calculus of gallbladder without cholecystitis without obstruction (principal); K75.81 Nonalcoholic steatohepatitis (NASH); G47.33 Obstructive sleep apnea (adult) (pediatric); G70.00 Myasthenia gravis without (acute) exacerbation; E11.9 Type 2 diabetes mellitus without complications; I10 Essential (primary) hypertension; R10.11 Right upper quadrant pain | CPT/HCPCS: 99212 ==

== ENCOUNTER → 2022-05-05 08:06 | Outpatient (BNVA) | payer MEDICARE, MEDICAID, SELFPAY | PROVIDERS: PCP Internal Medicine; Referring Provider Internal Medicine; Visit Provider Surgery | DX: K80.50 Calculus of bile duct without cholangitis or cholecystitis without obstruction (principal); K80.20 Calculus of gallbladder without cholecystitis without obstruction; K75.81 Nonalcoholic steatohepatitis (NASH); G47.33 Obstructive sleep apnea (adult) (pediatric); G70.00 Myasthenia gravis without (acute) exacerbation; E11.9 Type 2 diabetes mellitus without complications; I10 Essential (primary) hypertension; E66.01 Morbid (severe) obesity due to excess calories; Z68.39 Body mass index [BMI] 39.0-39.9, adult | CPT/HCPCS: 99212 ==

== ENCOUNTER 2022-05-07 10:46 | Outpatient (REF) | payer MEDICARE, MEDICAID, SELFPAY ==
--- NOTE | ~2022-05-07 | XR_ITS ---
EXAMINATION: XR CHEST CLINICAL INFORMATION: Cough COMPARISON: 06/13/2016 TECHNIQUE: 2 views of the chest were obtained. FINDINGS: No acute finding. The lung cristina are grossly clear. The cardiac silhouette is within normal limits comparable to previous. The hilar structures do not appear pathologically enlarged. There is no effusion. XR/XR chest 2V IMPRESSION: No acute finding.
== END 2022-05-07 10:47 | disposition home or self-care (01) ==
LOC: HO.HMGCX 10:46
PROVIDERS: PCP Internal Medicine; Visit Provider Nurse Practitioner Family
DX: R05.9 Cough, unspecified (principal)
CPT/HCPCS: 71046

== ENCOUNTER 2022-06-07 14:31 | Inpatient (IN) | payer MEDICARE, MEDICAID, SELFPAY ==
[2022-06-07] VITALS (13 sets, daily range): BP systolic 94–160; BP diastolic 43–79; PULSE 66–91; RESP 11–99; TEMP 36.1–37.3; O2SAT 97–99; BMI 38.9
--- NOTE | ~2022-06-07 | CT_ITS ---
EXAMINATION: CT ANGIOGRAM OF THE CHEST WITH AND WITHOUT CONTRAST (CT PULMONARY ANGIOGRAM FOR PE) CLINICAL INFORMATION: Reason for Exam Chest pain/pressure COMPARISON: Previous chest x-ray from earlier the same day and chest CT September 2015 TECHNIQUE: Prior to contrast administration, noncontrast localization images were obtained. Subsequently, multidetector volumetric imaging was performed from the thoracic inlet to below the diaphragms following the administration of 90 mL Omnipaque 350 intravenous contrast. No contrast reaction reported Sagittal, coronal, and MIP oblique sagittal reformatted images were obtained on the CT workstation, uploaded to PACS, and reviewed. This CT examination was performed using dose optimization techniques as appropriate, variously including the following: *Automated exposure control *Adjustment of mA and/or kV according to patient size (this includes techniques or standardized protocols for targeted exams where dose is matched to indication/reason for exam; i.e. extremities or head) *Use of iterative reconstruction technique Total exam dose-length product 1686 mGy-cm for combined CT of the chest, abdomen and pelvis FINDINGS: QUALITY OF STUDY/CONTRAST BOLUS: Satisfactory. PULMONARY ARTERIES: No pulmonary emboli. THORACIC AORTA: No aneurysm. LUNG: No focal consolidation, nodules or masses. PLEURA: No pleural effusion or pneumothorax. MEDIASTINUM: Normal heart size. No pericardial effusion. No hilar or mediastinal lymphadenopathy. No evidence of septal bowing or right heart strain. Left lobe of the thyroid gland appears to have been removed. CORONARY ARTERY CALCIFICATION: Mild CHEST WALL/AXILLA: No axillary or internal mammary lymphadenopathy. OSSEOUS STRUCTURES: No acute or suspicious osseous abnormality. Severe degenerative changes of the spine. UPPER ABDOMEN: See abdominal and pelvic CT from the same day No reflux of contrast into the hepatic veins to suggest elevated right heart pressures. CT/CT angio chest PE protocol IMPRESSION: No evidence of pulmonary embolism. VTE: negative
--- NOTE | ~2022-06-07 | CT_ITS ---
EXAMINATION: CT ABDOMEN AND PELVIS WITH CONTRAST CLINICAL INFORMATION: Abdominal pain COMPARISON: Previous CT of the abdomen and pelvis June 2020 and ultrasound December 2021 TECHNIQUE: Multidetector volumetric images were obtained from the superior aspect of the liver through the pubic symphysis following administration 90 mL of Omnipaque 350 intravenous contrast. 06/06/2022 Oral contrast: No This CT examination was performed using dose optimization techniques as appropriate, variously including the following: *Automated exposure control *Adjustment of mA and/or kV according to patient size (this includes techniques or standardized protocols for targeted exams where dose is matched to indication/reason for exam; i.e. extremities or head) *Use of iterative reconstruction technique DLP: 1686 mGy-cm for combined CT of the chest, abdomen and pelvis FINDINGS: LUNG BASES: The visualized lung bases are unremarkable. LIVER, GALLBLADDER, AND BILIARY TREE: The liver is normal in size, and shape. Liver slightly low in attenuation suggestive of fatty infiltration. No focal hepatic lesion or biliary ductal dilatation is present. The gallbladder is unremarkable with no evidence of radiopaque gallstones, gallbladder wall thickening, or obvious pericholecystic inflammatory changes. PANCREAS: Unremarkable. SPLEEN: Unremarkable. ADRENAL GLANDS: Unremarkable. KIDNEYS AND URETERS: The kidneys are normal in size, shape, and attenuation. No hydronephrosis, hydroureter, or calculi seen. Small low-attenuation lesion in the right kidney probably representing a cyst. No imaging follow-up recommended. No perinephric stranding. BLADDER: Unremarkable. GASTROINTESTINAL TRACT: Diverticulosis. The small and large bowel are unremarkable. The appendix is unremarkable. There may be a small esophageal hernia. ABDOMINAL WALL: No significant hernia is appreciated. LYMPH NODES: Normal. VASCULAR: Unremarkable. PELVIC VISCERA: Unremarkable. OSSEOUS STRUCTURES: Degenerative changes of the spine. CT/CT abdomen pelvis w IV con IMPRESSION: Diverticulosis. No evidence of diverticulitis. Mild fatty infiltration of the liver. Fleischner guidelines were followed.
--- NOTE | ~2022-06-07 | XR_ITS ---
EXAMINATION: XR CHEST CLINICAL INFORMATION: Pain COMPARISON: X-ray 05/07/2022 TECHNIQUE: 2 frontal view of the chest was obtained. FINDINGS: Monitoring leads overlie the chest. Cardiac and mediastinal silhouette is stable, within normal limits. No focal consolidation. No effusion, edema or pneumothorax. XR/XR chest 1V IMPRESSION: No evidence of acute disease.
--- NOTE | 2022-06-07 14:33 | ECG_ITS ---
Test Reason : PSIN Blood Pressure : / mmHG Vent. Rate : 085 BPM Atrial Rate : 085 BPM P-R Int : 170 ms QRS Dur : 146 ms QT Int : 406 ms P-R-T Axes : 054 -21 013 degrees QTc Int : 483 ms Normal sinus rhythm Right bundle branch block Abnormal ECG When compared with ECG of 13-JUN-2016 13:53, Right bundle branch block is now Present Referred By: Bang Richard Electronically Signed By:SIMBA BROWN
--- NOTE | 2022-06-07 14:34 | ED.GENADULT ---
HPI - General Adult General Chief complaint: Chest Pain <Bang Richard - Last Filed: 06/07/22 14:35> Stated complaint: not feeling well, CP, sob <Bang Richard - Last Filed: 06/07/22 14:35> Time Seen by Provider: 06/07/22 14:40 <Bang Richard - Last Filed: 06/07/22 14:35> Source: patient and family (, Eloise) <Lance Zacarias MD - Last Filed: 06/07/22 16:00> Mode of arrival: ambulatory <Lance Zacarias MD - Last Filed: 06/07/22 16:00> Limitations: no limitations <Lance Zacarias MD - Last Filed: 06/07/22 16:00> History of Present Illness HPI narrative: 66-year-old male with a history of myasthenia gravis who presents emergency department for evaluation of exertional chest pain. The patient states that he was scheduled to have a gallbladder surgery. He was given he was pre treated with IVIG on 05/30/2022. He then canceled the surgery. He states that over the past 3 days he has noted chest heaviness with exertion. He states that he can if he walks approximately 25 ft he gets a heaviness in his chest. He states that the 1st episode 3 days prior was 9/10. He states that today at noon he walked upstairs and got a heaviness in his chest. He states the pain is 8/10. The patient has associated shortness of breath. He denied radiation of the pain to his neck, jaw, arms or back. He had associated nausea with no vomiting. He denied lightheadedness or dizziness. At the time of evaluation he states that the pain is 5/10. He has had the pain for approximately 3-1/2 hours. He denies any weakness in his arms and legs and he states that this is usually where he has as weakness when he has a flare-up of his myasthenia gravis. He has been compliant with his medications. The patient states that he was 1st diagnosed with myasthenia gravis 8 years prior. His neurologist is Dr. Noel at [facility]. <Lance Zacarias MD - Last Filed: 06/07/22 16:00> Related Data Home medications: Home Medications Medication Instructions Recorded Confirmed aspirin 81 mg tablet,delayed 81 mg PO DAILY 04/29/21 05/05/22 release azathioprine 50 mg tablet 50 mg PO DAILY 04/29/21 05/05/22 gabapentin 800 mg tablet 800 mg PO DAILY 04/29/21 05/05/22 irbesartan 150 mg tablet 150 mg PO DAILY 04/29/21 05/05/22 metformin 500 mg tablet 500 mg PO DAILY 04/29/21 05/05/22 omeprazole 20 mg capsule,delayed 20 mg PO DAILY 04/29/21 05/05/22 release simvastatin 40 mg tablet 40 mg PO DAILY 04/29/21 05/05/22 calcium carbonate 600 mg-vitamin 1 tab PO 02/28/22 05/05/22 D3 10 mcg (400 unit) tablet hydrochlorothiazide 12.5 mg capsule 12.5 mg PO QAM 02/28/22 05/05/22 simethicone 125 mg capsule (Gas 125 mg PO TID PRN 02/28/22 05/05/22 Relief Extra Strength) pyridostigmine bromide 60 mg tablet 60 mg PO TID 03/07/22 05/05/22 Previous Rx's Medication Instructions Recorded benzonatate 100 mg capsule 100 mg PO TID PRN cough 10 days 05/07/22 #30 caps <Bang Richard - Last Filed: 06/07/22 14:35> Allergies/adverse reactions: Allergies Allergy/AdvReac Type Severity Reaction Status Date / Time No Known Allergies Allergy Verified 06/07/22 14:33 [No Known Allergies*] <Bang Richard - Last Filed: 06/07/22 14:35> Review of Systems Review of Systems: Yes all other systems are reviewed and are negative <Lance Zacarias MD - Last Filed: 06/07/22 16:00> [facility] Past Medical History [facility] Narrative: Past medical history: Reviewed below, aspiration pneumonia. Past surgical history: Coil your. Social history: He is . His is here in the emergency department with him. He denies tobacco use. He denies alcohol use. He denies drug use. <Lance Zacarias MD - Last Filed: 06/07/22 16:00> Medical History: Medical History Diabetes Hypertension Myasthenia gravis <Bang Richard - Last Filed: 06/07/22 14:35> Surgical History: Surgical History H/O meniscectomy of right knee H/O spinal fusion <Bang Richard - Last Filed: 06/07/22 14:35> Social History Social History: Social History Alcohol intake: never Patient Tobacco Use Status: Never used Tobacco Smoked in Last 30 Days: No Advance Directives: No Current occupational status: disabled <Bang Richard - Last Filed: 06/07/22 14:35> Physical Exam ED Vital Signs: Vital Signs - 24 hr 06/07/22 14:34 06/07/22 15:35 06/07/22 15:36 Temperature 96.9 F Pulse Rate 91 78 77 Respiratory Rate 18 14 Blood Pressure 123/61 112/49 L 113/59 L Pulse Oximetry 99 98 Oxygen Delivery Method Room Air Room Air 06/07/22 15:44 06/07/22 15:49 06/07/22 15:57 Temperature 98.0 F Pulse Rate 87 81 80 Respiratory Rate 22 H 99 H 16 Blood Pressure 94/49 L 99/55 L 95/43 L Pulse Oximetry 97 97 Oxygen Delivery Method Room Air Room Air 06/07/22 16:02 06/07/22 16:32 06/07/22 17:43 Temperature 98.1 F Pulse Rate 76 71 68 Respiratory Rate 12 15 Blood Pressure 95/43 L 94/58 L 111/65 Pulse Oximetry 99 97 Oxygen Delivery Method Room Air Room Air BMI result Body Mass Index 38.9 <Bang Richard - Last Filed: 06/07/22 14:35> Vital Signs - 24 hr 06/07/22 14:34 06/07/22 15:35 06/07/22 15:36 Temperature 96.9 F Pulse Rate 91 78 77 Respiratory Rate 18 14 Blood Pressure 123/61 112/49 L 113/59 L Pulse Oximetry 99 98 Oxygen Delivery Method Room Air Room Air 06/07/22 15:44 06/07/22 15:49 06/07/22 15:57 Temperature 98.0 F Pulse Rate 87 81 80 Respiratory Rate 22 H 99 H 16 Blood Pressure 94/49 L 99/55 L 95/43 L Pulse Oximetry 97 97 Oxygen Delivery Method Room Air Room Air 06/07/22 16:02 06/07/22 16:32 06/07/22 17:43 Temperature 98.1 F Pulse Rate 76 71 68 Respiratory Rate 12 15 Blood Pressure 95/43 L 94/58 L 111/65 Pulse Oximetry 99 97 Oxygen Delivery Method Room Air Room Air BMI result Body Mass Index 38.9 <Lance Zacarias MD - Last Filed: 06/07/22 16:00> Vital Signs - 24 hr 06/07/22 14:34 06/07/22 15:35 06/07/22 15:36 Temperature 96.9 F Pulse Rate 91 78 77 Respiratory Rate 18 14 Blood Pressure 123/61 112/49 L 113/59 L Pulse Oximetry 99 98 Oxygen Delivery Method Room Air Room Air 06/07/22 15:44 06/07/22 15:49 06/07/22 15:57 Temperature 98.0 F Pulse Rate 87 81 80 Respiratory Rate 22 H 99 H 16 Blood Pressure 94/49 L 99/55 L 95/43 L Pulse Oximetry 97 97 Oxygen Delivery Method Room Air Room Air 06/07/22 16:02 06/07/22 16:32 06/07/22 17:43 Temperature 98.1 F Pulse Rate 76 71 68 Respiratory Rate 12 15 Blood Pressure 95/43 L 94/58 L 111/65 Pulse Oximetry 99 97 Oxygen Delivery Method Room Air Room Air BMI result Body Mass Index 38.9 <Deborah Fox MD - Last Filed: 06/07/22 19:31> Const General: cooperative and no acute distress <Lance Zacarias MD - Last Filed: 06/07/22 16:00> Orientation/consciousness: oriented to person and oriented to place <Lance Zacarias MD - Last Filed: 06/07/22 16:00> Limitations: no limitations <Lance Zacarias MD - Last Filed: 06/07/22 16:00> HENMT Head: Yes normal to inspection, Yes normocephalic and Yes atraumatic <Lance Zacarias MD - Last Filed: 06/07/22 16:00> Ears: external ears normal <Lance Zacraias MD - Last Filed: 06/07/22 16:00> General nose exam: Normal external nose present <Lance Zacarias MD - Last Filed: 06/07/22 16:00> Face and sinus: Yes normal facial exam <Lance Zacarias MD - Last Filed: 06/07/22 16:00> Mouth: Normal oral and palatal mucosa present <Lance Zacarias MD - Last Filed: 06/07/22 16:00> Throat: Yes posterior oropharynx normal <MD Major Castro Last Filed: 06/07/22 16:00> Eyes General: appearance normal, both eyes and all related structures <MD Major Castro Last Filed: 06/07/22 16:00> Pupils: Equal, round and reactive pupils present <Lance Zacarias MD - Last Filed: 06/07/22 16:00> Neck Neck: Yes normal visual inspection, Yes no lymphadenopathy, Yes trachea midline and Yes supple <Lance Zacarias MD - Last Filed: 06/07/22 16:00> Chest Chest palpation & inspection: normal inspection of the chest and normal palpation of entire chest wall <Lance Zacarias MD - Last Filed: 06/07/22 16:00> Resp Effort & Inspection: normal respiratory effort and able to speak in complete sentences <Lance Zacarias MD - Last Filed: 06/07/22 16:00> Auscultation: clear to auscultation bilaterally <MD Major Castro Last Filed: 06/07/22 16:00> Cardio Rate: regular rate <MD Major Castro Last Filed: 06/07/22 16:00> Rhythm: regular rhythm <MD Major Castro Last Filed: 06/07/22 16:00> Heart sounds: S1 normal heart sound present, S2 normal heart sound present and no murmurs <Lance Zacarias MD - Last Filed: 06/07/22 16:00> GI Inspection: Yes normal to inspection <Lance Zacarias MD - Last Filed: 06/07/22 16:00> Palpation (GI): Soft to palpation, nontender and no guarding <Lance Zacarias MD - Last Filed: 06/07/22 16:00> Auscultation: normal bowel sounds <Lance Zacarias MD - Last Filed: 06/07/22 16:00> Rectal Exam - Male: Yes normal sphincter tone and Yes heme negative stool (Loose brown stool) <Lance Zacarias MD - Last Filed: 06/07/22 16:00> General: Yes no CVA tenderness <Lance Zacarias MD - Last Filed: 06/07/22 16:00> Back/Spine/Pelvis Back: no CVA tenderness <Lance Zacarias MD - Last Filed: 06/07/22 16:00> Skin General skin exam: no rashes or lesions noted <Lance Zacarias MD - Last Filed: 06/07/22 16:00> Neuro General: oriented to person and oriented to place <Lance Zacarias MD - Last Filed: 06/07/22 16:00> Cranial nerves: Yes CN's II-XII intact bilaterally and Yes Equal, round and reactive pupils present <Lance Zacarias MD - Last Filed: 06/07/22 16:00> Cognition (Neuro): normal cognition <Lance Zacarias MD - Last Filed: 06/07/22 16:00> Motor exam (neuro): 5/5 motor strength present throughout <Lance Zacarias MD - Last Filed: 06/07/22 16:00> Extrem General: Yes normal to inspection <Lance Zacarias MD - Last Filed: 06/07/22 16:00> Psych Appearance: grossly normal <Lance Zacarias MD - Last Filed: 06/07/22 16:00> Speech and movement: Normal speech and movement present <Lance Zacarias MD - Last Filed: 06/07/22 16:00> Affect: normal affect <Lance Zacarias MD - Last Filed: 06/07/22 16:00> Attitude: cooperative <Lance Zacarias MD - Last Filed: 06/07/22 16:00> Course Course Course Narrative: 66-year-old male presents for evaluation of chest tightness and fatigue. Reports shortness of breath with exertion. Patient reports history of myasthenia gravis and had IVIG treatment last week. His current symptoms have only been present for the last 2 days. Plan for cardiac workup <Bang Richard - Last Filed: 06/07/22 14:35> Medications Administered Generic Name Dose Route Start Last Admin Trade Name Freq PRN Reason Stop Dose Admin Sodium Chloride 1,000 mls @ 125 mls/hr 06/07/22 15:30 06/07/22 15:36 Ns IVCONT 125 mls/hr .Q8H JORGE Administration Nitroglycerin 0.4 mg 06/07/22 15:27 06/07/22 15:35 Nitroglycerin 0.4 Mg Tab.Subl SUBLINGUAL 0.4 mg Q5MX3 PRN Administration Chest pain Discontinued Medications Generic Name Dose Route Start Last Admin Trade Name Freq PRN Reason Stop Dose Admin Aspirin 324 mg 06/07/22 15:16 06/07/22 15:22 Aspirin 81 Mg Tab.Chew PO 06/07/22 15:17 324 mg ONCE ONE Administration Aspirin 325 mg 06/07/22 19:02 06/07/22 19:11 Aspirin Enteric Coated 325 Mg Tablet.Dr PO 06/07/22 19:03 325 mg ONCE ONE Administration Nitroglycerin 1 inch 06/07/22 15:56 06/07/22 16:02 Nitroglycerin 2 % Oint 1 Gm Packet TRANSDERMA 06/07/22 15:57 1 inch ONCE ONE Administration <Bang Richard - Last Filed: 06/07/22 14:35> Medications Administered Generic Name Dose Route Start Last Admin Trade Name Freq PRN Reason Stop Dose Admin Sodium Chloride 1,000 mls @ 125 mls/hr 06/07/22 15:30 06/07/22 15:36 Ns IVCONT 125 mls/hr .Q8H JORGE Administration Nitroglycerin 0.4 mg 06/07/22 15:27 06/07/22 15:35 Nitroglycerin 0.4 Mg Tab.Subl SUBLINGUAL 0.4 mg Q5MX3 PRN Administration Chest pain Discontinued Medications Generic Name Dose Route Start Last Admin Trade Name Freq PRN Reason Stop Dose Admin Aspirin 324 mg 06/07/22 15:16 06/07/22 15:22 Aspirin 81 Mg Tab.Chew PO 06/07/22 15:17 324 mg ONCE ONE Administration Aspirin 325 mg 06/07/22 19:02 06/07/22 19:11 Aspirin Enteric Coated 325 Mg Tablet.Dr SCHNEIDER 06/07/22 19:03 325 mg ONCE ONE Administration Nitroglycerin 1 inch 06/07/22 15:56 06/07/22 16:02 Nitroglycerin 2 % Oint 1 Gm Packet TRANSDERMA 06/07/22 15:57 1 inch ONCE ONE Administration <Lance Zacarias MD - Last Filed: 06/07/22 16:00> Medications Administered Generic Name Dose Route Start Last Admin Trade Name Freq PRN Reason Stop Dose Admin Sodium Chloride 1,000 mls @ 125 mls/hr 06/07/22 15:30 06/07/22 15:36 Ns IVCONT 125 mls/hr .Q8H JORGE Administration Nitroglycerin 0.4 mg 06/07/22 15:27 06/07/22 15:35 Nitroglycerin 0.4 Mg Tab.Subl SUBLINGUAL 0.4 mg Q5MX3 PRN Administration Chest pain Discontinued Medications Generic Name Dose Route Start Last Admin Trade Name Freq PRN Reason Stop Dose Admin Aspirin 324 mg 06/07/22 15:16 06/07/22 15:22 Aspirin 81 Mg Tab.Chew PO 06/07/22 15:17 324 mg ONCE ONE Administration Aspirin 325 mg 06/07/22 19:02 06/07/22 19:11 Aspirin Enteric Coated 325 Mg Tablet.Dr SCHNEIDER 06/07/22 19:03 325 mg ONCE ONE Administration Nitroglycerin 1 inch 06/07/22 15:56 06/07/22 16:02 Nitroglycerin 2 % Oint 1 Gm Packet TRANSDERMA 06/07/22 15:57 1 inch ONCE ONE Administration <Deborah Fox MD - Last Filed: 06/07/22 19:31> Medical Decision Making Medical Decision Making MDM Narrative: 66-year-old male with a history of diabetes mellitus hypertension myasthenia gravis who presents emergency department for evaluation of 3 days of exertional chest pain. The patient had an episode of chest heaviness which started today at noon after he walked up stairs and is still present. The pain was initially 8/10 is now 5/10. Patient states that he takes 1 baby aspirin a day. Vital signs were normal. Patient's physical examination was unremarkable. He has normal strength in his neurologic exam is normal. Patient's presentation is concerning for new onset angina. I did discuss treatment with our pharmacist to determine which cardiac medications would be safe and myasthenia gravis. Nitroglycerin, aspirin, heparin and Brilinta would be acceptable. Beta-blockers, statins, steroid would worsen his myasthenia gravis. I will treat the patient with aspirin 324 mg orally and try nitroglycerin sublingually to see if this relieves his pain. 1553: My interpretation patient's laboratory evaluation as follows: Normal cystic anemia with an H&H of 9.4 and 27.4 this is compared to an H&H of 13.7 and 41.9 from 02/28/2022. CMP was normal except for an elevated AST and ALT of 1671. Bilirubin is elevated 1.8. High sensitivity troponin I was detectable but not elevated at 3.8. COVID-19, influenza and RSV were negative. Chest x-ray was unremarkable. Twelve EKG revealed a new right bundle branch block compared to 06/05/2016. Rectal examination revealed loose brown stool which was Hemoccult negative. Patient did get improvement of his pain after 1 sublingual nitroglycerin. His systolic blood pressure dropped from 123 to 94 he was ordered to get 500 cc bolus of normal saline. Patient was ordered to get nitro paste 1 in to his chest wall. <Lance Zacarias MD - Last Filed: 06/07/22 16:00> 66-year-old male with a history of diabetes mellitus hypertension myasthenia gravis who presents emergency department for evaluation of 3 days of exertional chest pain. The patient had an episode of chest heaviness which started today at noon after he walked up stairs and is still present. The pain was initially 8/10 is now 5/10. Patient states that he takes 1 baby aspirin a day. Vital signs were normal. Patient's physical examination was unremarkable. He has normal strength in his neurologic exam is normal. Patient's presentation is concerning for new onset angina. I did discuss treatment with our pharmacist to determine which cardiac medications would be safe and myasthenia gravis. Nitroglycerin, aspirin, heparin and Brilinta would be acceptable. Beta-blockers, statins, steroid would worsen his myasthenia gravis. I will treat the patient with aspirin 324 mg orally and try nitroglycerin sublingually to see if this relieves his pain. 1553: My interpretation patient's laboratory evaluation as follows: Normal cystic anemia with an H&H of 9.4 and 27.4 this is compared to an H&H of 13.7 and 41.9 from 02/28/2022. CMP was normal except for an elevated AST and ALT of 1671. Bilirubin is elevated 1.8. High sensitivity troponin I was detectable but not elevated at 3.8. COVID-19, influenza and RSV were negative. Chest x-ray was unremarkable. Twelve EKG revealed a new right bundle branch block compared to 06/05/2016. Rectal examination revealed loose brown stool which was Hemoccult negative. Patient did get improvement of his pain after 1 sublingual nitroglycerin. His systolic blood pressure dropped from 123 to 94 he was ordered to get 500 cc bolus of normal saline. Patient was ordered to get nitro paste 1 in to his chest wall. -I received sign-out from Dr. Zacarias -patient's 2nd troponin is normal. Patient is asymptomatic, blood pressure 124 systolic, heart rate 64. -I discussed the patient with Dr. Mcghee. Is unclear if patient's symptoms are cardiac versus IVIG related. We discussed whether the patient should be admitted here versus at [facility] given the current situation. We will keep the patient here, monitor the patient, cardiology will evaluate the patient in the morning, Neurology may need to be involved as well. At this time, patient has no loss of strength. No airway compromise. I discussed the patient with Dr. Taylor, pt being admitted <Deborah Fox MD - Last Filed: 06/07/22 19:31> Differential Diagnosis Differential diagnosis includes was not limited myocardial infarction, new onset angina, myasthenia gravis flare up involving diaphragm, musculoskeletal pain, pneumonia, electrolyte abnormality, anemia <Lance Zacarias MD - Last Filed: 06/07/22 16:00> Admission/Observation Consideration of admission/observation: Escalation of care including admission/observation considered <Lance Zacarias MD - Last Filed: 06/07/22 16:00> Escalation of care including admission/observation considered <Deborah Fox MD - Last Filed: 06/07/22 19:31> Consult Healthcare Provider Management of the patient was discussed with: Hospitalist and [employer] Systems Analyst <Deborah Fox MD - Last Filed: 06/07/22 19:31> Lab Data MDM Lab Attestation statement: I reviewed the patient's lab results. <Lance Zacarias MD - Last Filed: 06/07/22 16:00> I reviewed the patient's lab results. <Deborah Fox MD - Last Filed: 06/07/22 19:31> See MDM <Lance Zacarias MD - Last Filed: 06/07/22 16:00> Result Diagrams: 06/07/22 14:45 06/07/22 14:45 <Bang Richard - Last Filed: 06/07/22 14:35> Labs: Lab Results 06/07/22 06/07/22 06/07/22 Range/Units 14:45 14:45 14:45 WBC 7.8 (4.8-10.8) X10*3/uL RBC 2.94 L D (4.60-5.80) X10*6/uL Hgb 9.4 L D (14.0-18.0) g/dl Hct 27.4 L D (42.0-52.0) % MCV 93.2 (80.0-98.0) fL MCH 32.0 (27.0-33.0) pg MCHC 34.3 (31.0-36.0) g/dl RDW 21.3 H (11.0-16.0) % Plt Count 213 (160-400) X10*3/uL MPV 10.0 (9.4-12.4) fL Immature Gran % (Auto) 0.8 H (0.0-0.4) % Neut % (Auto) 65.5 (45-73) % Lymph % (Auto) 25.4 (20-40) % [place] % (Auto) 6.5 (2-11) % Eos % (Auto) 0.8 (0-4) % Baso % (Auto) 1.0 (0-2) % Lymph # (Auto) 2.0 (1.2-4.9) X10*3/uL [place] # (Auto) 0.5 (0.1-1.2) X10*3/uL Eos # (Auto) 0.1 (0.0-0.4) X10*3/uL Baso # (Auto) 0.1 (0.0-0.2) X10*3/uL Abs Immat Gran (auto) 0.06 H (0.00-0.03) X10*3/uL Absolute Neuts (auto) 5.1 (2.0-8.3) x10*3/uL Absolute Nucleated RBC 0.090 H (0.0-0.012) X10*3/uL Nucleated RBC % (auto) 1.1 H (0.0-0.2) /100WBC PT (10.0-13.1) SEC INR (0.9-1.1) APTT (26.0-36.4) SEC Sodium 139 (135-145) mmol/L Potassium 4.1 (3.3-5.1) mmol/L Chloride 104 (96-108) mmol/L Carbon Dioxide 28 (22-29) mmol/L Anion Gap 11 L (12-20) BUN 15 (9-16) mg/dL Creatinine 1.13 (0.5-1.4) mg/dL Estim Creat Clear Calc 94.7 Estimated GFR > 60 Random Glucose 92 (60-115) mg/dL Calcium 8.9 (8.4-10.2) mg/dL Magnesium 2.2 (1.6-2.6) mg/dL Total Bilirubin 1.8 H (0.0-1.0) mg/dL AST 60 H (5-37) U/L ALT 71 H (0-40) U/L Alkaline Phosphatase 67 (39-117) U/L Troponin I High Sens 3.8 (<3.5-35.0) ng/L B-Natriuretic Peptide (<100) pg/mL Total Protein 7.9 (6.5-8.0) g/dL Albumin 3.8 (3.5-5.0) g/dL Lipase 28 (8-78) U/L Stool Occult Blood (NEGATIVE) Influenza Type A (PCR) (Negative) Influenza Type B (PCR) (Negative) RSV RNA Qual (PCR) (Negative) SARS-CoV-2 RNA (RT-PCR) (Negative) Blood Type Antibody Screen 06/07/22 06/07/22 06/07/22 Range/Units 14:45 14:45 14:45 WBC (4.8-10.8) X10*3/uL RBC (4.60-5.80) X10*6/uL Hgb (14.0-18.0) g/dl Hct (42.0-52.0) % MCV (80.0-98.0) fL MCH (27.0-33.0) pg MCHC (31.0-36.0) g/dl RDW (11.0-16.0) % Plt Count (160-400) X10*3/uL MPV (9.4-12.4) fL Immature Gran % (Auto) (0.0-0.4) % Neut % (Auto) (45-73) % Lymph % (Auto) (20-40) % [place] % (Auto) (2-11) % Eos % (Auto) (0-4) % Baso % (Auto) (0-2) % Lymph # (Auto) (1.2-4.9) X10*3/uL [place] # (Auto) (0.1-1.2) X10*3/uL Eos # (Auto) (0.0-0.4) X10*3/uL Baso # (Auto) (0.0-0.2) X10*3/uL Abs Immat Gran (auto) (0.00-0.03) X10*3/uL Absolute Neuts (auto) (2.0-8.3) x10*3/uL Absolute Nucleated RBC (0.0-0.012) X10*3/uL Nucleated RBC % (auto) (0.0-0.2) /100WBC PT 10.7 (10.0-13.1) SEC INR 0.9 (0.9-1.1) APTT 29.5 (26.0-36.4) SEC Sodium (135-145) mmol/L Potassium (3.3-5.1) mmol/L Chloride (96-108) mmol/L Carbon Dioxide (22-29) mmol/L Anion Gap (12-20) BUN (9-16) mg/dL Creatinine (0.5-1.4) mg/dL Estim Creat Clear Calc Estimated GFR Random Glucose (60-115) mg/dL Calcium (8.4-10.2) mg/dL Magnesium (1.6-2.6) mg/dL Total Bilirubin (0.0-1.0) mg/dL AST (5-37) U/L ALT (0-40) U/L Alkaline Phosphatase (39-117) U/L Troponin I High Sens (<3.5-35.0) ng/L B-Natriuretic Peptide 11 (<100) pg/mL Total Protein (6.5-8.0) g/dL Albumin (3.5-5.0) g/dL Lipase (8-78) U/L Stool Occult Blood (NEGATIVE) Influenza Type A (PCR) NEGATIVE (Negative) Influenza Type B (PCR) NEGATIVE (Negative) RSV RNA Qual (PCR) NEGATIVE (Negative) SARS-CoV-2 RNA (RT-PCR) NEGATIVE (Negative) Blood Type Antibody Screen 06/07/22 06/07/22 06/07/22 Range/Units 16:08 16:08 17:43 WBC (4.8-10.8) X10*3/uL RBC (4.60-5.80) X10*6/uL Hgb (14.0-18.0) g/dl Hct (42.0-52.0) % MCV (80.0-98.0) fL MCH (27.0-33.0) pg MCHC (31.0-36.0) g/dl RDW (11.0-16.0) % Plt Count (160-400) X10*3/uL MPV (9.4-12.4) fL Immature Gran % (Auto) (0.0-0.4) % Neut % (Auto) (45-73) % Lymph % (Auto) (20-40) % [place] % (Auto) (2-11) % Eos % (Auto) (0-4) % Baso % (Auto) (0-2) % Lymph # (Auto) (1.2-4.9) X10*3/uL [place] # (Auto) (0.1-1.2) X10*3/uL Eos # (Auto) (0.0-0.4) X10*3/uL Baso # (Auto) (0.0-0.2) X10*3/uL Abs Immat Gran (auto) (0.00-0.03) X10*3/uL Absolute Neuts (auto) (2.0-8.3) x10*3/uL Absolute Nucleated RBC (0.0-0.012) X10*3/uL Nucleated RBC % (auto) (0.0-0.2) /100WBC PT (10.0-13.1) SEC INR (0.9-1.1) APTT (26.0-36.4) SEC Sodium (135-145) mmol/L Potassium (3.3-5.1) mmol/L Chloride (96-108) mmol/L Carbon Dioxide (22-29) mmol/L Anion Gap (12-20) BUN (9-16) mg/dL Creatinine (0.5-1.4) mg/dL Estim Creat Clear Calc Estimated GFR Random Glucose (60-115) mg/dL Calcium (8.4-10.2) mg/dL Magnesium (1.6-2.6) mg/dL Total Bilirubin (0.0-1.0) mg/dL AST (5-37) U/L ALT (0-40) U/L Alkaline Phosphatase (39-117) U/L Troponin I High Sens 3.0 (<3.5-35.0) ng/L B-Natriuretic Peptide (<100) pg/mL Total Protein (6.5-8.0) g/dL Albumin (3.5-5.0) g/dL Lipase (8-78) U/L Stool Occult Blood NEGATIVE (NEGATIVE) Influenza Type A (PCR) (Negative) Influenza Type B (PCR) (Negative) RSV RNA Qual (PCR) (Negative) SARS-CoV-2 RNA (RT-PCR) (Negative) Blood Type AB Positive Antibody Screen NEGATIVE <Bang Richard - Last Filed: 06/07/22 14:35> Lab Results 06/07/22 06/07/22 06/07/22 Range/Units 14:45 14:45 14:45 WBC 7.8 (4.8-10.8) X10*3/uL RBC 2.94 L D (4.60-5.80) X10*6/uL Hgb 9.4 L D (14.0-18.0) g/dl Hct 27.4 L D (42.0-52.0) % MCV 93.2 (80.0-98.0) fL MCH 32.0 (27.0-33.0) pg MCHC 34.3 (31.0-36.0) g/dl RDW 21.3 H (11.0-16.0) % Plt Count 213 (160-400) X10*3/uL MPV 10.0 (9.4-12.4) fL Immature Gran % (Auto) 0.8 H (0.0-0.4) % Neut % (Auto) 65.5 (45-73) % Lymph % (Auto) 25.4 (20-40) % [place] % (Auto) 6.5 (2-11) % Eos % (Auto) 0.8 (0-4) % Baso % (Auto) 1.0 (0-2) % Lymph # (Auto) 2.0 (1.2-4.9) X10*3/uL [place] # (Auto) 0.5 (0.1-1.2) X10*3/uL Eos # (Auto) 0.1 (0.0-0.4) X10*3/uL Baso # (Auto) 0.1 (0.0-0.2) X10*3/uL Abs Immat Gran (auto) 0.06 H (0.00-0.03) X10*3/uL Absolute Neuts (auto) 5.1 (2.0-8.3) x10*3/uL Absolute Nucleated RBC 0.090 H (0.0-0.012) X10*3/uL Nucleated RBC % (auto) 1.1 H (0.0-0.2) /100WBC PT (10.0-13.1) SEC INR (0.9-1.1) APTT (26.0-36.4) SEC Sodium 139 (135-145) mmol/L Potassium 4.1 (3.3-5.1) mmol/L Chloride 104 (96-108) mmol/L Carbon Dioxide 28 (22-29) mmol/L Anion Gap 11 L (12-20) BUN 15 (9-16) mg/dL Creatinine 1.13 (0.5-1.4) mg/dL Estim Creat Clear Calc 94.7 Estimated GFR > 60 Random Glucose 92 (60-115) mg/dL Calcium 8.9 (8.4-10.2) mg/dL Magnesium 2.2 (1.6-2.6) mg/dL Total Bilirubin 1.8 H (0.0-1.0) mg/dL AST 60 H (5-37) U/L ALT 71 H (0-40) U/L Alkaline Phosphatase 67 (39-117) U/L Troponin I High Sens 3.8 (<3.5-35.0) ng/L B-Natriuretic Peptide (<100) pg/mL Total Protein 7.9 (6.5-8.0) g/dL Albumin 3.8 (3.5-5.0) g/dL Lipase 28 (8-78) U/L Stool Occult Blood (NEGATIVE) Influenza Type A (PCR) (Negative) Influenza Type B (PCR) (Negative) RSV RNA Qual (PCR) (Negative) SARS-CoV-2 RNA (RT-PCR) (Negative) Blood Type Antibody Screen 06/07/22 06/07/22 06/07/22 Range/Units 14:45 14:45 14:45 WBC (4.8-10.8) X10*3/uL RBC (4.60-5.80) X10*6/uL Hgb (14.0-18.0) g/dl Hct (42.0-52.0) % MCV (80.0-98.0) fL MCH (27.0-33.0) pg MCHC (31.0-36.0) g/dl RDW (11.0-16.0) % Plt Count (160-400) X10*3/uL MPV (9.4-12.4) fL Immature Gran % (Auto) (0.0-0.4) % Neut % (Auto) (45-73) % Lymph % (Auto) (20-40) % [place] % (Auto) (2-11) % Eos % (Auto) (0-4) % Baso % (Auto) (0-2) % Lymph # (Auto) (1.2-4.9) X10*3/uL [place] # (Auto) (0.1-1.2) X10*3/uL Eos # (Auto) (0.0-0.4) X10*3/uL Baso # (Auto) (0.0-0.2) X10*3/uL Abs Immat Gran (auto) (0.00-0.03) X10*3/uL Absolute Neuts (auto) (2.0-8.3) x10*3/uL Absolute Nucleated RBC (0.0-0.012) X10*3/uL Nucleated RBC % (auto) (0.0-0.2) /100WBC PT 10.7 (10.0-13.1) SEC INR 0.9 (0.9-1.1) APTT 29.5 (26.0-36.4) SEC Sodium (135-145) mmol/L Potassium (3.3-5.1) mmol/L Chloride (96-108) mmol/L Carbon Dioxide (22-29) mmol/L Anion Gap (12-20) BUN (9-16) mg/dL Creatinine (0.5-1.4) mg/dL Estim Creat Clear Calc Estimated GFR Random Glucose (60-115) mg/dL Calcium (8.4-10.2) mg/dL Magnesium (1.6-2.6) mg/dL Total Bilirubin (0.0-1.0) mg/dL AST (5-37) U/L ALT (0-40) U/L Alkaline Phosphatase (39-117) U/L Troponin I High Sens (<3.5-35.0) ng/L B-Natriuretic Peptide 11 (<100) pg/mL Total Protein (6.5-8.0) g/dL Albumin (3.5-5.0) g/dL Lipase (8-78) U/L Stool Occult Blood (NEGATIVE) Influenza Type A (PCR) NEGATIVE (Negative) Influenza Type B (PCR) NEGATIVE (Negative) RSV RNA Qual (PCR) NEGATIVE (Negative) SARS-CoV-2 RNA (RT-PCR) NEGATIVE (Negative) Blood Type Antibody Screen 06/07/22 06/07/22 06/07/22 Range/Units 16:08 16:08 17:43 WBC (4.8-10.8) X10*3/uL RBC (4.60-5.80) X10*6/uL Hgb (14.0-18.0) g/dl Hct (42.0-52.0) % MCV (80.0-98.0) fL MCH (27.0-33.0) pg MCHC (31.0-36.0) g/dl RDW (11.0-16.0) % Plt Count (160-400) X10*3/uL MPV (9.4-12.4) fL Immature Gran % (Auto) (0.0-0.4) % Neut % (Auto) (45-73) % Lymph % (Auto) (20-40) % [place] % (Auto) (2-11) % Eos % (Auto) (0-4) % Baso % (Auto) (0-2) % Lymph # (Auto) (1.2-4.9) X10*3/uL [place] # (Auto) (0.1-1.2) X10*3/uL Eos # (Auto) (0.0-0.4) X10*3/uL Baso # (Auto) (0.0-0.2) X10*3/uL Abs Immat Gran (auto) (0.00-0.03) X10*3/uL Absolute Neuts (auto) (2.0-8.3) x10*3/uL Absolute Nucleated RBC (0.0-0.012) X10*3/uL Nucleated RBC % (auto) (0.0-0.2) /100WBC PT (10.0-13.1) SEC INR (0.9-1.1) APTT (26.0-36.4) SEC Sodium (135-145) mmol/L Potassium (3.3-5.1) mmol/L Chloride (96-108) mmol/L Carbon Dioxide (22-29) mmol/L Anion Gap (12-20) BUN (9-16) mg/dL Creatinine (0.5-1.4) mg/dL Estim Creat Clear Calc Estimated GFR Random Glucose (60-115) mg/dL Calcium (8.4-10.2) mg/dL Magnesium (1.6-2.6) mg/dL Total Bilirubin (0.0-1.0) mg/dL AST (5-37) U/L ALT (0-40) U/L Alkaline Phosphatase (39-117) U/L Troponin I High Sens 3.0 (<3.5-35.0) ng/L B-Natriuretic Peptide (<100) pg/mL Total Protein (6.5-8.0) g/dL Albumin (3.5-5.0) g/dL Lipase (8-78) U/L Stool Occult Blood NEGATIVE (NEGATIVE) Influenza Type A (PCR) (Negative) Influenza Type B (PCR) (Negative) RSV RNA Qual (PCR) (Negative) SARS-CoV-2 RNA (RT-PCR) (Negative) Blood Type AB Positive Antibody Screen NEGATIVE <Lance Zacarias MD - Last Filed: 06/07/22 16:00> Lab Results 06/07/22 06/07/22 06/07/22 Range/Units 14:45 14:45 14:45 WBC 7.8 (4.8-10.8) X10*3/uL RBC 2.94 L D (4.60-5.80) X10*6/uL Hgb 9.4 L D (14.0-18.0) g/dl Hct 27.4 L D (42.0-52.0) % MCV 93.2 (80.0-98.0) fL MCH 32.0 (27.0-33.0) pg MCHC 34.3 (31.0-36.0) g/dl RDW 21.3 H (11.0-16.0) % Plt Count 213 (160-400) X10*3/uL MPV 10.0 (9.4-12.4) fL Immature Gran % (Auto) 0.8 H (0.0-0.4) % Neut % (Auto) 65.5 (45-73) % Lymph % (Auto) 25.4 (20-40) % [place] % (Auto) 6.5 (2-11) % Eos % (Auto) 0.8 (0-4) % Baso % (Auto) 1.0 (0-2) % Lymph # (Auto) 2.0 (1.2-4.9) X10*3/uL [place] # (Auto) 0.5 (0.1-1.2) X10*3/uL Eos # (Auto) 0.1 (0.0-0.4) X10*3/uL Baso # (Auto) 0.1 (0.0-0.2) X10*3/uL Abs Immat Gran (auto) 0.06 H (0.00-0.03) X10*3/uL Absolute Neuts (auto) 5.1 (2.0-8.3) x10*3/uL Absolute Nucleated RBC 0.090 H (0.0-0.012) X10*3/uL Nucleated RBC % (auto) 1.1 H (0.0-0.2) /100WBC PT (10.0-13.1) SEC INR (0.9-1.1) APTT (26.0-36.4) SEC Sodium 139 (135-145) mmol/L Potassium 4.1 (3.3-5.1) mmol/L Chloride 104 (96-108) mmol/L Carbon Dioxide 28 (22-29) mmol/L Anion Gap 11 L (12-20) BUN 15 (9-16) mg/dL Creatinine 1.13 (0.5-1.4) mg/dL Estim Creat Clear Calc 94.7 Estimated GFR > 60 Random Glucose 92 (60-115) mg/dL Calcium 8.9 (8.4-10.2) mg/dL Magnesium 2.2 (1.6-2.6) mg/dL Total Bilirubin 1.8 H (0.0-1.0) mg/dL AST 60 H (5-37) U/L ALT 71 H (0-40) U/L Alkaline Phosphatase 67 (39-117) U/L Troponin I High Sens 3.8 (<3.5-35.0) ng/L B-Natriuretic Peptide (<100) pg/mL Total Protein 7.9 (6.5-8.0) g/dL Albumin 3.8 (3.5-5.0) g/dL Lipase 28 (8-78) U/L Stool Occult Blood (NEGATIVE) Influenza Type A (PCR) (Negative) Influenza Type B (PCR) (Negative) RSV RNA Qual (PCR) (Negative) SARS-CoV-2 RNA (RT-PCR) (Negative) Blood Type Antibody Screen 06/07/22 06/07/22 06/07/22 Range/Units 14:45 14:45 14:45 WBC (4.8-10.8) X10*3/uL RBC (4.60-5.80) X10*6/uL Hgb (14.0-18.0) g/dl Hct (42.0-52.0) % MCV (80.0-98.0) fL MCH (27.0-33.0) pg MCHC (31.0-36.0) g/dl RDW (11.0-16.0) % Plt Count (160-400) X10*3/uL MPV (9.4-12.4) fL Immature Gran % (Auto) (0.0-0.4) % Neut % (Auto) (45-73) % Lymph % (Auto) (20-40) % [place] % (Auto) (2-11) % Eos % (Auto) (0-4) % Baso % (Auto) (0-2) % Lymph # (Auto) (1.2-4.9) X10*3/uL [place] # (Auto) (0.1-1.2) X10*3/uL Eos # (Auto) (0.0-0.4) X10*3/uL Baso # (Auto) (0.0-0.2) X10*3/uL Abs Immat Gran (auto) (0.00-0.03) X10*3/uL Absolute Neuts (auto) (2.0-8.3) x10*3/uL Absolute Nucleated RBC (0.0-0.012) X10*3/uL Nucleated RBC % (auto) (0.0-0.2) /100WBC PT 10.7 (10.0-13.1) SEC INR 0.9 (0.9-1.1) APTT 29.5 (26.0-36.4) SEC Sodium (135-145) mmol/L Potassium (3.3-5.1) mmol/L Chloride (96-108) mmol/L Carbon Dioxide (22-29) mmol/L Anion Gap (12-20) BUN (9-16) mg/dL Creatinine (0.5-1.4) mg/dL Estim Creat Clear Calc Estimated GFR Random Glucose (60-115) mg/dL Calcium (8.4-10.2) mg/dL Magnesium (1.6-2.6) mg/dL Total Bilirubin (0.0-1.0) mg/dL AST (5-37) U/L ALT (0-40) U/L Alkaline Phosphatase (39-117) U/L Troponin I High Sens (<3.5-35.0) ng/L B-Natriuretic Peptide 11 (<100) pg/mL Total Protein (6.5-8.0) g/dL Albumin (3.5-5.0) g/dL Lipase (8-78) U/L Stool Occult Blood (NEGATIVE) Influenza Type A (PCR) NEGATIVE (Negative) Influenza Type B (PCR) NEGATIVE (Negative) RSV RNA Qual (PCR) NEGATIVE (Negative) SARS-CoV-2 RNA (RT-PCR) NEGATIVE (Negative) Blood Type Antibody Screen 06/07/22 06/07/22 06/07/22 Range/Units 16:08 16:08 17:43 WBC (4.8-10.8) X10*3/uL RBC (4.60-5.80) X10*6/uL Hgb (14.0-18.0) g/dl Hct (42.0-52.0) % MCV (80.0-98.0) fL MCH (27.0-33.0) pg MCHC (31.0-36.0) g/dl RDW (11.0-16.0) % Plt Count (160-400) X10*3/uL MPV (9.4-12.4) fL Immature Gran % (Auto) (0.0-0.4) % Neut % (Auto) (45-73) % Lymph % (Auto) (20-40) % [place] % (Auto) (2-11) % Eos % (Auto) (0-4) % Baso % (Auto) (0-2) % Lymph # (Auto) (1.2-4.9) X10*3/uL [place] # (Auto) (0.1-1.2) X10*3/uL Eos # (Auto) (0.0-0.4) X10*3/uL Baso # (Auto) (0.0-0.2) X10*3/uL Abs Immat Gran (auto) (0.00-0.03) X10*3/uL Absolute Neuts (auto) (2.0-8.3) x10*3/uL Absolute Nucleated RBC (0.0-0.012) X10*3/uL Nucleated RBC % (auto) (0.0-0.2) /100WBC PT (10.0-13.1) SEC INR (0.9-1.1) APTT (26.0-36.4) SEC Sodium (135-145) mmol/L Potassium (3.3-5.1) mmol/L Chloride (96-108) mmol/L Carbon Dioxide (22-29) mmol/L Anion Gap (12-20) BUN (9-16) mg/dL Creatinine (0.5-1.4) mg/dL Estim Creat Clear Calc Estimated GFR Random Glucose (60-115) mg/dL Calcium (8.4-10.2) mg/dL Magnesium (1.6-2.6) mg/dL Total Bilirubin (0.0-1.0) mg/dL AST (5-37) U/L ALT (0-40) U/L Alkaline Phosphatase (39-117) U/L Troponin I High Sens 3.0 (<3.5-35.0) ng/L B-Natriuretic Peptide (<100) pg/mL Total Protein (6.5-8.0) g/dL Albumin (3.5-5.0) g/dL Lipase (8-78) U/L Stool Occult Blood NEGATIVE (NEGATIVE) Influenza Type A (PCR) (Negative) Influenza Type B (PCR) (Negative) RSV RNA Qual (PCR) (Negative) SARS-CoV-2 RNA (RT-PCR) (Negative) Blood Type AB Positive Antibody Screen NEGATIVE <Deborah Fox MD - Last Filed: 06/07/22 19:31> Independent Interpretation I performed an independent interpretation of an: EKG <Lance Zacarias MD - Last Filed: 06/07/22 16:00> Interpretation: My interpretation patient's 12 EKG done at 14:37 is as follows: Normal sinus rhythm with a rate of 85, normal IL interval 170 milliseconds, prolonged QRS of 146 milliseconds, prolonged QTC of [address] segment elevation, no ST segment depression, right bundle-branch block, inverted T-wave in V1. Compared to EKG 06/13/2016 the right bundle-branch block is new. <Lance Zacarias MD - Last Filed: 06/07/22 16:00> Radiology Impression Discussion of test interpretation with radiology: I have reviewed the radiologist's reading. <Lance Zacarias MD - Last Filed: 06/07/22 16:00> Radiologist Impression: XR chest 1V IMPRESSION: No evidence of acute disease. Dictated By:Shahram Carey MD <Lance Zacarias MD - Last Filed: 06/07/22 16:00> Critical Care Time Critical Care Time Critical Care Time: Yes <Deborah Fox MD - Last Filed: 06/07/22 19:31> Total Critical Care Time: 60 <Deborah Fox MD - Last Filed: 06/07/22 19:31> Attestation: I have personally provided critical care time. Time includes review of lab data, radiology results, discussion with consultants, and monitoring for potential decompensation. Intervention performed as documented. <Deborah Fox MD - Last Filed: 06/07/22 19:31> Discharge Plan Discharge Clinical Impression: New-onset angina, Myasthenia gravis, Normocytic anemia <Bang Richard - Last Filed: 06/07/22 14:35> Patient Disposition: Admitted As Inpatient <Bang Richard - Last Filed: 06/07/22 14:35>
[2022-06-07 14:50] LABS: MANUAL DIFF FLAG NO
--- NOTE | 2022-06-07 14:56 | PC.NURSE ---
Pt arrived ambulatory to room, reporting chest tightness, especially when walking/talking x3days. Pt reporting no n/v/d, denies falls, has MG but does not normally have these symptoms in regards to a flare up. MD at bedside, labs obtained, EKG obtained, awaiting further orders
[2022-06-07 14:58] LABS: Basophils Absolute Auto 0.1 X10*3/uL (0.0-0.2); Eosinophils Absolute Auto 0.1 X10*3/uL (0.0-0.4); Eosinophils Percent Auto 0.8 % (0-4); Hematocrit 27.4 % (42.0-52.0); Hemoglobin 9.4 g/dl (14.0-18.0); Imm Gran Abs Auto 0.06 X10*3/uL (0.00-0.03); Imm Gran Pct Auto 0.8 % (0.0-0.4); Lymphocytes Percent Auto 25.4 % (20-40); Mean Corpuscular HGB Conc 34.3 g/dl (31.0-36.0); Mean Corpuscular Volume 93.2 fL (80.0-98.0); Monocytes Absolute Auto 0.5 X10*3/uL (0.1-1.2); Monocytes Percent Auto 6.5 % (2-11); Neutrophils Absolute Auto 5.1 x10*3/uL (2.0-8.3); Neutrophils Percent Auto 65.5 % (45-73); Platelet Count 213 X10*3/uL (160-400); Red Blood Count 2.94 X10*6/uL (4.60-5.80); Red Cell Distribution Width 21.3 % (11.0-16.0); White Blood Count 7.8 X10*3/uL (4.8-10.8)
[2022-06-07 15:01] LABS: NRBC Pct Auto 1.1 /100WBC (0.0-0.2)
[2022-06-07 15:05] LABS: INTERNATIONAL NORM RATIO 0.9 (0.9-1.1); Prothrombin Time 10.7 SEC (10.0-13.1)
[2022-06-07 15:07] LABS: Alanine Aminotransferase 71 U/L (0-40); Albumin Level 3.8 g/dL (3.5-5.0); Alkaline Phosphatase 67 U/L (39-117); Anion Gap 11 (12-20); Aspartate Amino Transferase 60 U/L (5-37); Bilirubin Total 1.8 mg/dL (0.0-1.0); Blood Urea Nitrogen 15 mg/dL (9-16); Calcium 8.9 mg/dL (8.4-10.2); Carbon Dioxide 28 mmol/L (22-29); Chloride 104 mmol/L (96-108); Creatinine Clr Calc Pharmacy 94.7; Estimated Glomerular Filt Rate > 60; Glucose Random 92 mg/dL (60-115); Lipase 28 U/L (8-78); Magnesium 2.2 mg/dL (1.6-2.6); Potassium 4.1 mmol/L (3.3-5.1); Sodium 139 mmol/L (135-145); Total Protein 7.9 g/dL (6.5-8.0)
[2022-06-07 15:08] LABS: Partial Thromboplastin Time 29.5 SEC (26.0-36.4)
[2022-06-07 15:11] LABS: B Type Natriuretic Peptide 11 pg/mL (<100)
[2022-06-07 15:15] LABS: Troponin-I High Sensitivity 3.8 ng/L (<3.5-35.0)
[2022-06-07] MEDS: Aspirin 81 MG TAB.CHEW 324 MG PO (15:22)
[2022-06-07 15:28] LABS: Influenza A PCR NEGATIVE (Negative); Influenza B PCR NEGATIVE (Negative); Resp Syncy Virus RNA Qual PCR NEGATIVE (Negative); SARS COV2 PCR INHOUSE NEGATIVE (Negative)
[2022-06-07] MEDS: Nitroglycerin 0.4 MG TAB.SUBL SUBLINGUAL (15:35)
[2022-06-07] MEDS: 0.9 % Sodium Chloride 1,000 ML 125 ML IVCONT (15:36)
--- NOTE | 2022-06-07 15:38 | PC.NURSE ---
at bedside during nitro admin, ASA also admin. BP set to q 5min, HR stable at this time, pt reporting no change of pressure at this time
--- NOTE | 2022-06-07 15:45 | PC.NURSE ---
slight BP drop in 5 minute post nitro, MD verbally order 500cc bolus, currently being given, 2cd IV placed at this time, pt reporting no symptoms, HOB layed flat
[2022-06-07] MEDS: Nitroglycerin 2 % Oint 1 GM Packet 1 INCH TRANSDERMA (16:02)
--- NOTE | 2022-06-07 16:11 | MHC.EDTECH ---
THIS PCT ASSUMED CARE OF PT AT 1500 ,VITALS SIGN TAKEN ,TYPE AND SCREEN DRAWN AND STOOL CARD COLLECTED AND SENT TO LAB .
[2022-06-07 16:19] LABS: OBS Int Ctl Valid YES; OBS1 NEGATIVE (NEGATIVE)
--- NOTE | 2022-06-07 17:44 | MHC.EDTECH ---
1800 rounding done vitals sign taken ,repeated trop drawn and sent to lab ,pt at bedside .
[2022-06-07] MEDS: Aspirin Enteric Coated 325 MG TABLET.DR PO (19:11)
--- NOTE | 2022-06-07 19:34 | PM.IMHP ---
History of Present Illness Date of Service: 06/07/22 Attending physician on admission: Bert Can Chief Complaint: Chest pain Pt is a 66-year-old male with a PMH significant for?[id number] diabetes, myasthenia gravis, HTN, gluten intolerance and cholelithiasis, who presents to the ED with?with 3 days of exertional chest pain/pressure. Patient states that he received an infusion of IVIG in anticipation having a cholecystectomy on 06/05/2022. However, pt decided to postpone the surgery due to still having some questions about possible complications. On patient notes that he was walking up the stairs when he felt a burning pain that began in the center of his abdomen and then slowly migrated up into his chest. Says the pain in his chest felt like a pressure, a heavy weight sitting on his chest. It did not radiate anywhere. Pt felt tired, but not weak in his extremities like draining myasthenia gravis crisis. Patient laid down for an hour before symptoms resolved. On Thursday patient noted that if he walked around 25 ft he would have similar recurrence of symptoms, again alleviated by resting for around 1 hour. This morning patient again experienced the chest pressure with going up stairs a decided to get evaluated at the ED. patient received sublingual nitro and nitropaste which provided some relief. Pt also notes he had a left-sided abdominal burning sensation while waiting in the ED that lasted about a half an hour. Pt notes he has had IVIG infusions in the past without any problems. Patient states his normal symptoms when he has a myasthenia gravis crisis are difficulty speaking and swallowing, neither which he experienced this time. Patient also states he has a chronic dry cough that has not worsened recently. Pt had 1 day of mild nausea on when symptoms began, but denies fever, chills, vomiting. No change to bowel or bladder habits. Denies lightheadedness or dizziness. No worsening lower leg edema. Of note, patient has been diagnosed with myasthenia gravis for approximately 8 years and his neurologist is Dr. Noel at [facility]. In the ED patient was afebrile but tachypneic up to 22, and hypotensive as low as 95/43. Labs were significant for normocytic anemia of 9.4/27.4 (below baseline), hyperbilirubinemia of 1.8, AST 60, ALT 71, serial troponins negative at 3.8 with repeat flat at 3.0. Stool negative for occult blood. CXR showed no acute cardiopulmonary process seen. EKG demonstrated normal sinus rhythm with right bundle-branch block, new when compared to EKG from 2017. Pt was treated with aspirin, nitroglycerin, and IVF. Pt will be admitted to the hospital for treatment and further evaluation of chest pain/pressure. Review of Systems Review of Systems: Chest pain/pressure Left-sided abdominal pain Fatigue Chronic dry cough Nausea, no vomiting Denies peripheral weakness No fever chills, diarrhea Denies worsening lower leg edema [facility] Medical History Diabetes Hypertension Myasthenia gravis Surgical History H/O meniscectomy of right knee H/O spinal fusion Social History Alcohol intake: never Patient Tobacco Use Status: Never used Tobacco Smoked in Last 30 Days: No Advance Directives: No Current occupational status: disabled Meds Allergies Allergy/AdvReac Type Severity Reaction Status Date / Time No Known Allergies Allergy Verified 06/07/22 14:33 [No Known Allergies*] Active Medications: Current Medications Sodium Chloride (Ns) 1,000 mls @ 125 mls/hr IVCONT .Q8H JORGE Last Admin: 06/07/22 15:36 Dose: 125 mls/hr Nitroglycerin (Nitroglycerin 0.4 Mg Tab.Subl) 0.4 mg SUBLINGUAL [id number] PRN PRN Reason: Chest pain Last Admin: 06/07/22 15:35 Dose: 0.4 mg Pharmacy Consult (Consult Rx Perform Med Rec) 1 each MISCELLANE ONCE PRN PRN Reason: Consult order Home Medications Medication Instructions Recorded Confirmed Last Taken Type irbesartan 150 mg tablet 150 mg PO DAILY 04/29/21 06/07/22 Unknown History calcium carbonate 600 mg-vitamin 1 tab PO DAILY 02/28/22 06/07/22 Unknown History D3 10 mcg (400 unit) tablet aspirin 81 mg chewable tablet 1 tab PO QAM 06/07/22 06/07/22 Unknown History azathioprine 50 mg tablet 50 mg PO TID 06/07/22 06/07/22 Unknown History benzonatate 100 mg capsule 100 mg PO TID PRN cough 06/07/22 06/07/22 Unknown History cetirizine 10 mg tablet 10 mg DAILY 06/07/22 06/07/22 Unknown History cholecalciferol (vitamin D3) 25 25 mcg PO DAILY 06/07/22 06/07/22 Unknown History mcg (1,000 unit) tablet cyanocobalamin (vitamin B-12) 1,000 mcg PO QAM 06/07/22 06/07/22 Unknown History 1,000 mcg tablet famotidine 20 mg tablet 20 mg PO BID 06/07/22 06/07/22 Unknown History gabapentin 800 mg tablet 800 mg PO TID 06/07/22 06/07/22 Unknown History hydrochlorothiazide 12.5 mg capsule 12.5 mg PO QAM 06/07/22 06/07/22 Unknown History metformin 500 mg tablet,extended 500 mg PO QPM 06/07/22 06/07/22 Unknown History release 24 hr omeprazole 20 mg capsule,delayed 20 mg PO DAILY 06/07/22 06/07/22 Unknown History release pyridostigmine bromide 60 mg tablet 60 mg PO TID 06/07/22 06/07/22 Unknown History simethicone 125 mg capsule (Gas 125 mg PO TID PRN bloating 06/07/22 06/07/22 Unknown History Relief Extra Strength) simvastatin 40 mg tablet 40 mg PO QPM 06/07/22 06/07/22 Unknown History Physical Exam Vital Signs and Narrative: Vital Signs: Last Vital Signs Temp 98.1 F 06/07/22 17:43 Pulse 68 06/07/22 17:43 Resp 15 06/07/22 17:43 BP 111/65 06/07/22 17:43 Pulse Ox 97 06/07/22 17:43 O2 Del Method Room Air 06/07/22 17:43 BMI result Body Mass Index 38.9 Results Labs 06/07/22 14:45 06/07/22 14:45 Labs: Laboratory Results - last 24 hr 06/07/22 06/07/22 06/07/22 14:45 14:45 14:45 MCV 93.2 MCH 32.0 MCHC 34.3 RDW 21.3 H Plt Count 213 MPV 10.0 Immature Gran % (Auto) 0.8 H Neut % (Auto) 65.5 Lymph % (Auto) 25.4 [place] % (Auto) 6.5 Eos % (Auto) 0.8 Baso % (Auto) 1.0 Lymph # (Auto) 2.0 [place] # (Auto) 0.5 Eos # (Auto) 0.1 Baso # (Auto) 0.1 Abs Immat Gran (auto) 0.06 H Absolute Neuts (auto) 5.1 Absolute Nucleated RBC 0.090 H Nucleated RBC % (auto) 1.1 H PT INR APTT Anion Gap 11 L Estim Creat Clear Calc 94.7 Estimated GFR > 60 Random Glucose 92 Calcium 8.9 Magnesium 2.2 Total Bilirubin 1.8 H AST 60 H ALT 71 H Alkaline Phosphatase 67 Troponin I High Sens 3.8 B-Natriuretic Peptide Total Protein 7.9 Albumin 3.8 Lipase 28 Stool Occult Blood Influenza Type A (PCR) Influenza Type B (PCR) RSV RNA Qual (PCR) SARS-CoV-2 RNA (RT-PCR) Blood Type Antibody Screen 06/07/22 06/07/22 06/07/22 14:45 14:45 14:45 MCV MCH MCHC RDW Plt Count MPV Immature Gran % (Auto) Neut % (Auto) Lymph % (Auto) [place] % (Auto) Eos % (Auto) Baso % (Auto) Lymph # (Auto) [place] # (Auto) Eos # (Auto) Baso # (Auto) Abs Immat Gran (auto) Absolute Neuts (auto) Absolute Nucleated RBC Nucleated RBC % (auto) PT 10.7 INR 0.9 APTT 29.5 Anion Gap Estim Creat Clear Calc Estimated GFR Random Glucose Calcium Magnesium Total Bilirubin AST ALT Alkaline Phosphatase Troponin I High Sens B-Natriuretic Peptide 11 Total Protein Albumin Lipase Stool Occult Blood Influenza Type A (PCR) NEGATIVE Influenza Type B (PCR) NEGATIVE RSV RNA Qual (PCR) NEGATIVE SARS-CoV-2 RNA (RT-PCR) NEGATIVE Blood Type Antibody Screen 06/07/22 06/07/22 06/07/22 16:08 16:08 17:43 MCV MCH MCHC RDW Plt Count MPV Immature Gran % (Auto) Neut % (Auto) Lymph % (Auto) [place] % (Auto) Eos % (Auto) Baso % (Auto) Lymph # (Auto) [place] # (Auto) Eos # (Auto) Baso # (Auto) Abs Immat Gran (auto) Absolute Neuts (auto) Absolute Nucleated RBC Nucleated RBC % (auto) PT INR APTT Anion Gap Estim Creat Clear Calc Estimated GFR Random Glucose Calcium Magnesium Total Bilirubin AST ALT Alkaline Phosphatase Troponin I High Sens 3.0 B-Natriuretic Peptide Total Protein Albumin Lipase Stool Occult Blood NEGATIVE Influenza Type A (PCR) Influenza Type B (PCR) RSV RNA Qual (PCR) SARS-CoV-2 RNA (RT-PCR) Blood Type AB Positive Antibody Screen NEGATIVE Imaging Radiologist's Impressions: Impressions Chest X-Ray 06/07/22 15:22 IMPRESSION: No evidence of acute disease. Assessment and Plan (1) Chest pain on exertion: Status: Acute Plan Pt is a 66-year-old male with a PMH significant for?[id number] diabetes, myasthenia gravis, HTN, gluten intolerance and cholelithiasis, who presents to the ED with?with 3 days of exertional chest pain/pressure. Pt will be admitted to the hospital for treatment and further evaluation of chest pain/pressure. Chest pain/pressure on exertion Unclear etiology: CAD vs myasthenia gravis crisis vs adverse IVIG reaction vs PE Serial troponins negative, EKG negative for ST elevations or depressions, BNP negative, CXR negative for pleural effusions Not similar to past presentations of myasthenia gravis crisis, patient with IVIG infusions in the past with no complications Cardiology consult Check CTA to r/o PE Monitor on telemetry Normocytic anemia Patient's H&H 9.4 over 27.4, lower than baseline of 13.5/41.5 Unclear etiology: No evidence of active bleed, stool negative for occult blood Follow CBC Hyperbilirubinemia Total bilirubin 1.8, direct bilirubin 0.6 Unclear etiology: Patient without jaundice, no upper right quadrant abdominal pain Check CT of abdomen/pelvis Transaminitis AST 60 and ALT 71 at time of presentation Unclear etiology: Patient relates lower right and left quadrant abdominal pain, denies upper right quadrant abdominal pain Check CT of abdomen/pelvis HTN BP soft, hold hydrochlorothiazide and irbesartan for now Resume home antihypertensives as necessary Non insulin-dependent diabetes, well controlled Hold metformin Sliding scale insulin Diet Patient is lactose and gluten intolerant Lactose-free, gluten free, and diabetic diet GERD Continue famotidine Chronic cough Continue benzonatate Full Code Attending:?Dr. Can DVT Prophylaxis: Lovenox Pt will require a hospitalization of at least two nights for treatment and further evaluation of chest pain/pressure with exertion. Time Spent With Patient Time: Total time managing care of this patient today ____ minutes. Quality Stroke Does the patient have a stroke diagnosis?: No VTE Prior VTE?: No VTE Risk Level:: Medical - moderate - high VTE Device Contraindication: Treatment Not Indicated VTE Drug Contraindication: N/A - Med Ordered
[2022-06-07 21:09] LABS: Bilirubin Direct 0.6 mg/dL (0.0-0.5)
[2022-06-07] MEDS: iohexoL 350 MG/ML 100 ML INFUS..BTL IV (21:09)
[2022-06-07] MEDS: Enoxaparin Sodium 40 MG/0.4 ML SYRINGE SUBCUT (21:30)
[2022-06-07] MEDS: Gabapentin 400 MG CAPSULE 800 MG PO (21:31)
[2022-06-07] MEDS: Famotidine 20 MG TABLET PO (21:31)
[2022-06-07] MEDS: azaTHIOprine 50 MG TABLET PO (21:55)
[2022-06-07 22:22] LABS: Glucose, Whole Blood 111 mg/dL (60-115)
--- NOTE | 2022-06-07 23:08 | PC.NURSE ---
Nurse to Nurse report provided to [facility] Nurse [place]. Assessments complete
[2022-06-08] VITALS (7 sets, daily range): BP systolic 94–128; BP diastolic 54–67; PULSE 67–72; RESP 18–20; TEMP 36–37.1; O2SAT 98–100; BMI 38.7
[2022-06-08] MEDS: 0.9 % Sodium Chloride 1,000 ML 125 ML IVCONT ×2 (00:10→09:57)
[2022-06-08 06:25] LABS: Hematocrit 25.6 % (42.0-52.0); Hemoglobin 8.6 g/dl (14.0-18.0); Mean Corpuscular HGB Conc 33.6 g/dl (31.0-36.0); Mean Corpuscular Hemoglobin 31.7 pg (27.0-33.0); Mean Corpuscular Volume 94.5 fL (80.0-98.0); Mean Platelet Volume 10.6 fL (9.4-12.4); NRBC Pct Auto 0.5 /100WBC (0.0-0.2); Platelet Count 189 X10*3/uL (160-400); Red Blood Count 2.71 X10*6/uL (4.60-5.80); Red Cell Distribution Width 21.5 % (11.0-16.0); White Blood Count 5.8 X10*3/uL (4.8-10.8)
[2022-06-08] MEDS: Omeprazole 20 MG CAPSULE.DR PO (06:33)
[2022-06-08 06:50] LABS: Alanine Aminotransferase 60 U/L (0-40); Albumin Level 3.2 g/dL (3.5-5.0); Alkaline Phosphatase 52 U/L (39-117); Anion Gap 10 (12-20); Aspartate Amino Transferase 49 U/L (5-37); Bilirubin Total 1.3 mg/dL (0.0-1.0); Blood Urea Nitrogen 12 mg/dL (9-16); Calcium 8.3 mg/dL (8.4-10.2); Carbon Dioxide 27 mmol/L (22-29); Chloride 106 mmol/L (96-108); Creatinine Clr Calc Pharmacy 113.5; Estimated Glomerular Filt Rate > 60; Glucose Random 90 mg/dL (60-115); Potassium 4.3 mmol/L (3.3-5.1); Sodium 139 mmol/L (135-145); Total Protein 6.6 g/dL (6.5-8.0)
[2022-06-08 07:10] LABS: Glucose, Whole Blood 93 mg/dL (60-115)
[2022-06-08 08:05] LABS: Iron 93 mcg/dL (45-160); Percent Iron Saturation 40 % (15-50); Total Iron Binding Capacity 230 mcg/dL (228-428); Unsaturated Iron Binding 137 ug/dL
[2022-06-08 08:08] LABS: Lactate Dehydrogenase 255 U/L (118-273)
--- NOTE | 2022-06-08 08:29 | MHC.CM.PN ---
CM met with Patient and his /HCP at bedside and addressed IMM with him, providing Patient with the original and placing a copy on the chart. Patient lives in a house with his and adult Son and he uses a cane at times to assist with mobility. Home/self care is the goal and CM has initiated and will follow for dc planning. Patient has received Pfizer/Covid vax x 4 and his PCP is Dr. Christopher Wang.
[2022-06-08 08:41] LABS: Ferritin 1155 ng/mL (20-250); Folate 14.2 ng/mL (> or = 4.0); Vitamin B12 > 2000 pg/mL (200-900)
--- NOTE | 2022-06-08 09:45 | PHA.MEDREC ---
Addendum entered by Marcia Garibay RPh 06/08/22 09:53: ALY REVIEWED MED REC Original Note: Pharmacy Consult ? Medication Reconciliation Pharmacy has completed the medication reconciliation. Spoke to patient to confirm medications. Patient states they take azathioprine twice a day and pyridostigmine twice a day as well.
[2022-06-08] MEDS: Calcium + Vitamin D 250 MG TABLET 500 MG PO (09:58)
[2022-06-08] MEDS: Loratadine 10 MG TABLET PO (09:58)
[2022-06-08] MEDS: Gabapentin 400 MG CAPSULE 800 MG PO ×3 (09:58→20:53)
[2022-06-08] MEDS: Aspirin 81 MG TAB.CHEW PO (09:58)
[2022-06-08] MEDS: Cyanocobalamin (Vitamin B-12) 1,000 MCG TABLET 1000 MCG PO (09:58)
[2022-06-08] MEDS: Cholecalciferol (Vitamin D3) 25 MCG TABLET PO (09:58)
[2022-06-08] MEDS: Famotidine 20 MG TABLET PO ×2 (09:58→20:55)
[2022-06-08] MEDS: pyRIDostigmine bromide 60 MG TABLET PO ×2 (09:59→15:50)
[2022-06-08] MEDS: 0.9 % Sodium Chloride Flush 3 ML SYRINGE IVFLUSH ×3 (10:02→20:58)
--- NOTE | 2022-06-08 10:09 | P.PNIM_ITS ---
Subjective Subjective Date of Service: 06/08/22 Interval History: seen and examined this morning follow up for chest heaviness reporting intermittent chest heaviness over the past several days. completed 5 day IVIG infusion on the and symptoms began after that no dizziness, cough at this time Review of Systems Review of Systems: Yes all other systems are reviewed and are negative Constitutional Constitutional: Denies chills and Denies fever(s) ENT Ears, Nose, Mouth, and Throat: Denies dizziness Cardiovascular Cardiovascular: Reports chest pain and Denies palpitations Respiratory Respiratory: Denies cough Gastrointestinal Gastrointestinal: Denies abdominal pain Neurologic Neurologic: Denies dizziness Endocrine Endocrine: Denies palpitations Physical Exam Vital Signs: Vital Signs: Last Vital Signs Temp 96.8 F 06/08/22 07:11 Pulse 71 06/08/22 07:11 Resp 20 06/08/22 07:11 BP 119/67 06/08/22 07:11 Pulse Ox 100 06/08/22 07:11 O2 Del Method Room Air 06/08/22 07:11 BMI result Body Mass Index 38.7 Const: General: cooperative, comfortable, alert and awake Nutritional Appearance: overweight Orientation/consciousness: patient oriented x3 Resp: Effort & Inspection: normal respiratory effort and able to speak in complete sentences Auscultation: clear to auscultation bilaterally Neuro: General: patient oriented x3 Objective Data Active Medications Acetaminophen (Acetaminophen 325 Mg Tablet) 650 mg PO Q6H PRN PRN Reason: Pain, Mild (Pain Scale 1-3) Aspirin (Aspirin 81 Mg Tab.Chew) 81 mg PO DAILY [facility] Last Admin: 06/08/22 09:58 Dose: 81 mg Documented By: DEWAYNE Atorvastatin Calcium (Atorvastatin Calcium 20 Mg Tablet) 20 mg PO BEDTIME [facility] Azathioprine (Azathioprine 50 Mg Tablet) 50 mg PO TID [facility] Last Admin: 06/07/22 21:55 Dose: 50 mg Documented By: MONTEIR Benzonatate (Benzonatate 100 Mg Capsule) 100 mg PO TID PRN PRN Reason: cough Calcium Carbonate/Cholecalciferol (Calcium + Vitamin D 250 Mg Tablet) 500 mg PO DAILY [facility] Last Admin: 06/08/22 09:58 Dose: 500 mg Documented By: DEWAYNE Cyanocobalamin (Cyanocobalamin (Vitamin B-12) 1,000 Mcg Tablet) 1,000 mcg PO DAILY [facility] Last Admin: 06/08/22 09:58 Dose: 1,000 mcg Documented By: DEWAYNE Docusate Sodium (Docusate Sodium 100 Mg Capsule) 100 mg PO DAILY PRN PRN Reason: Constipation Enoxaparin Sodium (Enoxaparin Sodium 40 Mg/0.4 Ml Syringe) 40 mg SUBCUT Q24H [facility] Last Admin: 06/07/22 21:30 Dose: 40 mg Documented By: LAURENT Famotidine (Famotidine 20 Mg Tablet) 20 mg PO BID [facility] Last Admin: 06/08/22 09:58 Dose: 20 mg Documented By: DEWAYNE Gabapentin (Gabapentin 400 Mg Capsule) 800 mg PO TID [facility] Last Admin: 06/08/22 09:58 Dose: 800 mg Documented By: DEWAYNE Glucose (Glucose Gel 15 Gm Gel..Gram.) 15 gm PO Q15M PRN; Protocol PRN Reason: per Hypoglycemia Standing Ord. Sodium Chloride (Ns) 1,000 mls @ 125 mls/hr IVCONT .Q8H [facility] Last Admin: 06/08/22 09:57 Dose: 125 mls/hr Documented By: DEWAYNE Dextrose (D10) 250 mls @ 750 mls/hr IV Q15M PRN; Protocol PRN Reason: per Hypoglycemia Standing Ord. Insulin Human Lispro (Insulin Lispro 100 Unit/Ml 3 Ml Vial) 0 unit SUBCUT QIDACHS [facility]; Protocol Last Admin: 06/08/22 10:02 Dose: Not Given Documented By: DEWAYNE Non-Admin Reason: No Insulin Coverage Loratadine (Loratadine 10 Mg Tablet) 10 mg PO DAILY [facility] Last Admin: 06/08/22 09:58 Dose: 10 mg Documented By: DEWAYNE Nitroglycerin (Nitroglycerin 0.4 Mg Tab.Subl) 0.4 mg SUBLINGUAL Q5MX3 PRN PRN Reason: Chest pain Last Admin: 06/07/22 15:35 Dose: 0.4 mg Documented By: MICHOACANO Omeprazole (Omeprazole 20 Mg Capsule.Dr) 20 mg PO DAILY@0630 [facility] Last Admin: 06/08/22 06:33 Dose: 20 mg Documented By: JOSE Ondansetron HCl (Ondansetron Hcl 4 Mg/2 Ml Vial) 4 mg IVPUSH Q8H PRN PRN Reason: Nausea and Vomiting Pharmacy Consult (Consult Rx Perform Med Rec) 1 each MISCELLANE ONCE PRN PRN Reason: Consult order Pyridostigmine Tatum (Pyridostigmine Tatum 60 Mg Tablet) 60 mg PO TID [facility] Last Admin: 06/08/22 09:59 Dose: 60 mg Documented By: DEWAYNE Simethicone (Simethicone 80 Mg Tab.Chew) 80 mg PO TID PRN PRN Reason: bloating Sodium Chloride (0.9 % Sodium Chloride Flush 3 Ml Syringe) 3 ml IVFLUSH QSHIFT [facility] Last Admin: 06/08/22 10:02 Dose: 3 ml Documented By: DEWAYNE Vitamin D (Cholecalciferol (Vitamin D3) 25 Mcg Tablet) 25 mcg PO DAILY [facility] Last Admin: 06/08/22 09:58 Dose: 25 mcg Documented By: DEWAYNE Labs 06/08/22 06:05 06/08/22 06:05 Labs: Laboratory Results - last 24 hr 06/07/22 06/07/22 06/07/22 14:45 14:45 14:45 MCV 93.2 MCH 32.0 MCHC 34.3 RDW 21.3 H Plt Count 213 MPV 10.0 Immature Gran % (Auto) 0.8 H Neut % (Auto) 65.5 Lymph % (Auto) 25.4 [place] % (Auto) 6.5 Eos % (Auto) 0.8 Baso % (Auto) 1.0 Lymph # (Auto) 2.0 [place] # (Auto) 0.5 Eos # (Auto) 0.1 Baso # (Auto) 0.1 Abs Immat Gran (auto) 0.06 H Absolute Neuts (auto) 5.1 Absolute Nucleated RBC 0.090 H Nucleated RBC % (auto) 1.1 H PT INR APTT Anion Gap 11 L Estim Creat Clear Calc 94.7 Estimated GFR > 60 POC Glucose Random Glucose 92 Calcium 8.9 Magnesium 2.2 Iron TIBC % Saturation Unsat Iron Binding Ferritin Total Bilirubin 1.8 H Direct Bilirubin 0.6 H AST 60 H ALT 71 H Alkaline Phosphatase 67 Lactate Dehydrogenase Troponin I High Sens 3.8 B-Natriuretic Peptide Total Protein 7.9 Albumin 3.8 Lipase 28 Vitamin B12 Folate Stool Occult Blood Influenza Type A (PCR) Influenza Type B (PCR) RSV RNA Qual (PCR) SARS-CoV-2 RNA (RT-PCR) Blood Type Antibody Screen 06/07/22 06/07/22 06/07/22 14:45 14:45 14:45 MCV MCH MCHC RDW Plt Count MPV Immature Gran % (Auto) Neut % (Auto) Lymph % (Auto) [place] % (Auto) Eos % (Auto) Baso % (Auto) Lymph # (Auto) [place] # (Auto) Eos # (Auto) Baso # (Auto) Abs Immat Gran (auto) Absolute Neuts (auto) Absolute Nucleated RBC Nucleated RBC % (auto) PT 10.7 INR 0.9 APTT 29.5 Anion Gap Estim Creat Clear Calc Estimated GFR POC Glucose Random Glucose Calcium Magnesium Iron TIBC % Saturation Unsat Iron Binding Ferritin Total Bilirubin Direct Bilirubin AST ALT Alkaline Phosphatase Lactate Dehydrogenase Troponin I High Sens B-Natriuretic Peptide 11 Total Protein Albumin Lipase Vitamin B12 Folate Stool Occult Blood Influenza Type A (PCR) NEGATIVE Influenza Type B (PCR) NEGATIVE RSV RNA Qual (PCR) NEGATIVE SARS-CoV-2 RNA (RT-PCR) NEGATIVE Blood Type Antibody Screen 06/07/22 06/07/22 06/07/22 16:08 16:08 17:43 MCV MCH MCHC RDW Plt Count MPV Immature Gran % (Auto) Neut % (Auto) Lymph % (Auto) [place] % (Auto) Eos % (Auto) Baso % (Auto) Lymph # (Auto) [place] # (Auto) Eos # (Auto) Baso # (Auto) Abs Immat Gran (auto) Absolute Neuts (auto) Absolute Nucleated RBC Nucleated RBC % (auto) PT INR APTT Anion Gap Estim Creat Clear Calc Estimated GFR POC Glucose Random Glucose Calcium Magnesium Iron TIBC % Saturation Unsat Iron Binding Ferritin Total Bilirubin Direct Bilirubin AST ALT Alkaline Phosphatase Lactate Dehydrogenase Troponin I High Sens 3.0 B-Natriuretic Peptide Total Protein Albumin Lipase Vitamin B12 Folate Stool Occult Blood NEGATIVE Influenza Type A (PCR) Influenza Type B (PCR) RSV RNA Qual (PCR) SARS-CoV-2 RNA (RT-PCR) Blood Type AB Positive Antibody Screen NEGATIVE 06/07/22 06/08/22 06/08/22 22:19 06:05 06:05 MCV 94.5 MCH 31.7 MCHC 33.6 RDW 21.5 H Plt Count 189 MPV 10.6 Immature Gran % (Auto) Neut % (Auto) Lymph % (Auto) [place] % (Auto) Eos % (Auto) Baso % (Auto) Lymph # (Auto) [place] # (Auto) Eos # (Auto) Baso # (Auto) Abs Immat Gran (auto) Absolute Neuts (auto) Absolute Nucleated RBC 0.030 H Nucleated RBC % (auto) 0.5 H PT INR APTT Anion Gap 10 L Estim Creat Clear Calc 113.5 Estimated GFR > 60 POC Glucose 111 Random Glucose 90 Calcium 8.3 L D Magnesium Iron 93 TIBC 230 % Saturation 40 Unsat Iron Binding 137 Ferritin 1155 H Total Bilirubin 1.3 H Direct Bilirubin AST 49 H ALT 60 H Alkaline Phosphatase 52 Lactate Dehydrogenase 255 Troponin I High Sens B-Natriuretic Peptide Total Protein 6.6 Albumin 3.2 L Lipase Vitamin B12 > 2000 H Folate 14.2 Stool Occult Blood Influenza Type A (PCR) Influenza Type B (PCR) RSV RNA Qual (PCR) SARS-CoV-2 RNA (RT-PCR) Blood Type Antibody Screen 06/08/22 07:02 MCV MCH MCHC RDW Plt Count MPV Immature Gran % (Auto) Neut % (Auto) Lymph % (Auto) [place] % (Auto) Eos % (Auto) Baso % (Auto) Lymph # (Auto) [place] # (Auto) Eos # (Auto) Baso # (Auto) Abs Immat Gran (auto) Absolute Neuts (auto) Absolute Nucleated RBC Nucleated RBC % (auto) PT INR APTT Anion Gap Estim Creat Clear Calc Estimated GFR POC Glucose 93 Random Glucose Calcium Magnesium Iron TIBC % Saturation Unsat Iron Binding Ferritin Total Bilirubin Direct Bilirubin AST ALT Alkaline Phosphatase Lactate Dehydrogenase Troponin I High Sens B-Natriuretic Peptide Total Protein Albumin Lipase Vitamin B12 Folate Stool Occult Blood Influenza Type A (PCR) Influenza Type B (PCR) RSV RNA Qual (PCR) SARS-CoV-2 RNA (RT-PCR) Blood Type Antibody Screen Assessment and Plan (1) Normocytic anemia: Status: Acute (2) Chest pain on exertion: Status: Acute Plan Pt is a 66-year-old male with a PMH significant for?[id number] diabetes, myasthenia gravis, HTN, gluten intolerance and cholelithiasis, who presents to the ED with?with 3 days of exertional chest pain/pressure. Pt will be admitted to the hospital for treatment and further evaluation of chest pain/pressure. Chest pain Serial troponins negative, BNP, CXR negative. CTA negative for PE had similar chest pain following IVIG 3 years ago - plan for stress test at that time, but never done due to COVID seen by cardiology, prefers H/H to improve prior to stress test Acute on chronic normocytic anemia H/H 13.5/41.5 in February, trending down to 8.6/25.6 overnight. may be component of dilution No evidence of active bleed, denies melena, FOBT neg, b12, folic acid, iron wnl. bili 1.8 on admit but LDH wnl less likely hemolysis. Haptoglobin pending colonoscopy 2020-tubular adenoma repeat FOBT pending above transfusion threshold Follow CBC Myesthenia Gravis no occular symptoms. denies sob, but does have chest heavines - will check FVC continue mestinon, imuran Transaminitis LFTs slightly elevated. No abdominal pain, CT abdomen negative. Levels trending down continue statin for now HTN BP soft, hold hydrochlorothiazide and irbesartan for now Resume home antihypertensives as BP allows Non insulin-dependent diabetes, well controlled Hold metformin Sliding scale insulin Diet Patient is lactose and gluten intolerant Lactose-free, gluten free, and diabetic diet GERD Continue famotidine/prilosec Full Code Attending:?Dr. Escobar DVT Prophylaxis: Lovenox Requires ongoing hospitalization for treatment and further evaluation of chest pain/pressure including specialist evaluation Time Spent With Patient Time: Total time managing care of this patient today ____ minutes. Quality Stroke Does the patient have a stroke diagnosis?: No VTE Prior VTE?: No VTE Risk Level:: Medical - moderate - high VTE Device Contraindication: Treatment Not Indicated VTE Drug Contraindication: N/A - Med Ordered
[2022-06-08 10:59] LABS: Glucose, Whole Blood 118 mg/dL (60-115)
--- NOTE | 2022-06-08 11:11 | P.CONCA_ITS ---
History of Present Illness History of Present Illness Date of Service: 06/08/22 Chief complaint: Chest pain Narrative: This is a cardiology consultation regarding chest pain. Patient has a history of myasthenia gravis. However, no known cardiac issues including coronary disease myocardial infarction or cardiomyopathy. He apparently had plans to go for cholecystectomy and hence got IVIG last week. That entered on the 15th of this month. He was initially feeling okay but then couple of days ago started feeling discomfort in the chest that felt like a pressure. This happened prim arily with walking. When he is resting, he feeling okay. Overall, sounds like probably angina. However, it also seems that he is anemic and current hemoglobin is only 8.6. Prior hemoglobins are much higher. In February, it was 13.7. Any case, he was admitted to the hospital for further workup of the new onset chest discomfort. Review of Systems Review of Systems: Yes all other systems are reviewed and are negative Constitutional: Constitutional: Reports as per HPI and Reports no additional constitutional complaints Eyes: Eyes: Reports as per HPI and Denies no additional eye complaints ENT: Denies system reviewed and no additional complaints, except as documented and Reports as per HPI Cardiovascular: Cardiovascular: Reports as per HPI, Reports no additional cardiovascular complaints, Denies acrocyanosis, Denies cool extremities, Reports chest pain, Denies leg edema, Denies lightheadedness, Denies palpitations and Denies dyspnea Respiratory: Respiratory: Reports as per HPI, Denies no additional respiratory complaints and Denies dyspnea Gastrointestinal: Gastrointestinal: Reports as per HPI and Denies no additional gastrointestinal complaints Genitourinary: Genitourinary: Reports no additional male genitourinary complaints and Reports as per HPI Musculoskeletal: Musculoskeletal: Reports no additional musculoskeletal complaints and Reports as per HPI Integumentary/Breasts: Skin/Breast: Reports system reviewed and no additional complaints, except as docu Neurologic: Reports system reviewed and no additional complaints, except as documented and Reports as per HPI Psychiatric: Psychiatric: Reports no additional psychiatric complaints and Reports as per HPI Endocrine: Endocrine: Reports no additional endocrine complaints, Reports as per HPI and Denies palpitations Hematologic/Lymphatic: Hematologic/Lymphatic: Reports no additional hemat ologic/lymphatic complaints and Reports as per HPI Allergic/Immunologic: Allergic/Immunologic: Reports no additional allergic/immunologic complaints and Reports as per HPI [facility] Past Medical History Medical History Diabetes Hypertension Myasthenia gravis Family History Family History Mother No problems noted. Father No problems noted. Surgical History Surgical History H/O meniscectomy of right knee H/O spinal fusion Social History Social History Household Members: Spouse and Children Housing: House Do you presently have visiting nurse or other home services: No Alcohol intake: never Patient Tobacco Use Status: Never used Tobacco service: No Current occupational status: disabled Meds Allergies Allergy/AdvReac Type Severity Reaction Status Date / Time No Known Allergies Allergy Verified 06/07/22 14:33 [No Known Allergies*] Active Medications: Current Medications Acetaminophen (Acetaminophen 325 Mg Tablet) 650 mg PO Q6H PRN PRN Reason: Pain, Mild (Pain Scale 1-3) Aspirin (Aspirin 81 Mg Tab.Chew) 81 mg PO DAILY [facility] Last Admin: 06/08/22 09:58 Dose: 81 mg Atorvastatin Calcium (Atorvastatin Calcium 20 Mg Tablet) 20 mg PO BEDTIME [facility] Azathioprine (Azathioprine 50 Mg Tablet) 50 mg PO TID [facility] Last Admin: 06/07/22 21:55 Dose: 50 mg Benzonatate (Benzonatate 100 Mg Capsule) 100 mg PO TID PRN PRN Reason: cough Calcium Carbonate/Cholecalciferol (Calcium + Vitamin D 250 Mg Tablet) 500 mg PO DAILY [facility] Last Admin: 06/08/22 09:58 Dose: 500 mg Cyanocobalamin (Cyanocobalamin (Vitamin B-12) 1,000 Mcg Tablet) 1,000 mcg PO DAILY [facility] Last Admin: 06/08/22 09:58 Dose: 1,000 mcg Docusate Sodium (Docusate Sodium 100 Mg Capsule) 100 mg PO DAILY PRN PRN Reason: Constipation Enoxaparin Sodium (Enoxaparin Sodium 40 Mg/0.4 Ml Syringe) 40 mg SUBCUT Q24H [facility] Last Admin: 06/07/22 21:30 Dose: 40 mg Famotidine (Famotidine 20 Mg Tablet) 20 mg PO BID [facility] Last Admin: 06/08/22 09:58 Dose: 20 mg Gabapentin (Gabapentin 400 Mg Capsule) 800 mg PO TID [facility] Last Admin: 06/08/22 09:58 Dose: 800 mg Glucose (Glucose Gel 15 Gm Gel..Gram.) 15 gm PO Q15M PRN; Protocol PRN Reason: per Hypoglycemia Standing Ord. Dextrose (D10) 250 mls @ 750 mls/hr IV Q15M PRN; Protocol PRN Reason: per Hypoglycemia Standing Ord. Insulin Human Lispro (Insulin Lispro 100 Unit/Ml 3 Ml Vial) 0 unit SUBCUT QIDACHS [facility]; Protocol Last Admin: 06/08/22 11:06 Dose: Not Given Loratadine (Loratadine 10 Mg Tablet) 10 mg PO DAILY [facility] Last Admin: 06/08/22 09:58 Dose: 10 mg Omeprazole (Omeprazole 20 Mg Capsule.Dr) 20 mg PO DAILY@0630 [facility] Last Admin: 06/08/22 06:33 Dose: 20 mg Ondansetron HCl (Ondansetron Hcl 4 Mg/2 Ml Vial) 4 mg IVPUSH Q8H PRN PRN Reason: Nausea and Vomiting Pharmacy Consult (Consult Rx Perform Med Rec) 1 each MISCELLANE ONCE PRN PRN Reason: Consult order Pyridostigmine Merritt (Pyridostigmine Merritt 60 Mg Tablet) 60 mg PO TID [facility] Last Admin: 06/08/22 09:59 Dose: 60 mg Simethicone (Simethicone 80 Mg Tab.Chew) 80 mg PO TID PRN PRN Reason: bloating Sodium Chloride (0.9 % Sodium Chloride Flush 3 Ml Syringe) 3 ml IVFLUSH QSHIFT [facility] Last Admin: 06/08/22 10:02 Dose: 3 ml Vitamin D (Cholecalciferol (Vitamin D3) 25 Mcg Tablet) 25 mcg PO DAILY [facility] Last Admin: 06/08/22 09:58 Dose: 25 mcg Home Medications Medication Instructions Recorded Confirmed Last Taken Type calcium carbonate 600 mg-vitamin 1 tab PO BID 02/28/22 06/08/22 06/07/22 09:00 History D3 10 mcg (400 unit) tablet aspirin 81 mg chewable tablet 1 tab PO DAILY 06/07/22 06/08/22 06/07/22 09:00 History azathioprine 50 mg tablet 50 mg PO BID 06/07/22 06/08/22 06/07/22 09:00 History benzonatate 100 mg capsule 100 mg PO TID PRN cough 06/07/22 06/07/22 06/07/22 09:00 History cetirizine 10 mg tablet 10 mg BEDTIME 06/07/22 06/08/22 06/06/22 History cholecalciferol (vitamin D3) 25 25 mcg PO DAILY 06/07/22 06/07/22 06/07/22 09:00 History mcg (1,000 unit) tablet cyanocobalamin (vitamin B-12) 1,000 mcg PO DAILY 06/07/22 06/08/22 06/07/22 09:00 History 1,000 mcg tablet famotidine 20 mg tablet 20 mg PO BID 06/07/22 06/07/22 06/07/22 09:00 History gabapentin 800 mg tablet 800 mg PO TID 06/07/22 06/07/22 06/07/22 09:00 History metformin 500 mg tablet,extended 500 mg PO BEDTIME 06/07/22 06/08/22 06/06/22 History release 24 hr omeprazole 20 mg capsule,delayed 20 mg PO BID 06/07/22 06/08/22 06/07/22 09:00 History release pyridostigmine bromide 60 mg tablet 60 mg PO BID 06/07/22 06/08/22 06/07/22 09:00 History simethicone 125 mg capsule (Gas 125 mg PO TID PRN bloating 06/07/22 06/07/22 06/07/22 09:00 History Relief Extra Strength) simvastatin 40 mg tablet 40 mg PO BEDTIME 06/07/22 06/08/22 06/06/22 History brinzolamide 1 %-brimonidine 0.2 % 1 drp ophthalmic (eye) BID 06/08/22 06/08/22 06/07/22 09:00 History eye drops,suspension (Simbrinza) fluticasone propionate 44 2 puff inhalation BID PRN 06/08/22 06/08/22 06/07/22 09:00 History mcg/actuation HFA aerosol inhaler Shortness Of Breath Or Wheezing (Flovent HFA) irbesartan 150 1 tab PO DAILY 06/08/22 06/08/22 06/07/22 09:00 History mg-hydrochlorothiazide 12.5 mg tablet Physical Exam Vital Signs: Vital Signs: Last Vital Signs Temp 97.6 F 06/08/22 11:09 Pulse 72 06/08/22 11:09 Resp 20 06/08/22 11:09 BP 120/62 06/08/22 11:09 Pulse Ox 100 06/08/22 11:09 O2 Del Method Room Air 06/08/22 11:09 BMI result Body Mass Index 38.7 Const: General: comfortable and no acute distress Orientation/consci ousness: patient oriented x3 HEENT: Other: Unremarkable Head: Yes normal to inspection Neck: Neck: Yes normal visual inspection Chest: Chest palpation & inspection: normal inspection of the chest Resp: Auscultation: clear to auscultation bilaterally Cardio: Palpation: normal PMI Heart sounds: S1 normal heart sound present, S2 normal heart sound present, no gallops, no murmurs and no rubs GI: Palpation (GI): Soft to palpation Back/Spine/Pelvis: Other: unremarkable Skin: General skin exam: no rashes or lesions noted Neuro: General: patient oriented x3 Extrem: General: Yes normal to inspection Psych: Mental Status: mental status grossly normal Objective Labs and Meds 06/08/22 06:05 06/08/22 06:05 Lab results: Laboratory Results - last 24 hr 06/07/22 06/07/22 06/07/22 14:45 14:45 14:45 WBC 7.8 RBC 2.94 L D Hgb 9.4 L D Hct 27.4 L D MCV 93.2 MCH 32.0 MCHC 34.3 RDW 21.3 H Plt Count 213 MPV 10.0 Immature Gran % (Auto) 0.8 H Neut % (Auto) 65.5 Lymph % (Auto) 25.4 [place] % (Auto) 6.5 Eos % (Auto) 0.8 Baso % (Auto) 1.0 Lymph # (Auto) 2.0 [place] # (Auto) 0.5 Eos # (Auto) 0.1 Baso # (Auto) 0.1 Abs Immat Gran (auto) 0.06 H Absolute Neuts (auto) 5.1 Absolute Nucleated RBC 0.090 H Nucleated RBC % (auto) 1.1 H PT INR APTT Sodium 139 Potassium 4.1 Chloride 104 Carbon Dioxide 28 Anion Gap 11 L BUN 15 Creatinine 1.13 Estim Creat Clear Calc 94.7 Estimated GFR > 60 POC Glucose Random Glucose 92 Calcium 8.9 Magnesium 2.2 Iron TIBC % Saturation Unsat Iron Binding Ferritin Total Bilirubin 1.8 H Direct Bilirubin 0.6 H AST 60 H ALT 71 H Alkaline Phosphatase 67 Lactate Dehydrogenase Troponin I High Sens 3.8 B-Natriuretic Peptide Total Protein 7.9 Albumin 3.8 Lipase 28 Vitamin B12 Folate Stool Occult Blood Influenza Type A (PCR) Influenza Type B (PCR) RSV RNA Qual (PCR) SARS-CoV-2 RNA (RT-PCR) Blood Type Antibody Screen 06/07/22 06/07/22 06/07/22 14:45 14:45 14:45 WBC RBC Hgb Hct MCV MCH MCHC RDW Plt Count MPV Immature Gran % (Auto) Neut % (Auto) Lymph % (Auto) [place] % (Auto) Eos % (Auto) Baso % (Auto) Lymph # (Auto) [place] # (Auto) Eos # (Auto) Baso # (Auto) Abs Immat Gran (auto) Absolute Neuts (auto) Absolute Nucleated RBC Nucleated RBC % (auto) PT 10.7 INR 0.9 APTT 29.5 Sodium Potassium Chloride Carbon Dioxide Anion Gap BUN Creatinine Estim Creat Clear Calc Estimated GFR POC Glucose Random Glucose Calcium Magnesium Iron TIBC % Saturation Unsat Iron Binding Ferritin Total Bilirubin Direct Bilirubin AST ALT Alkaline Phosphatase Lactate Dehydrogenase Troponin I High Sens B-Natriuretic Peptide 11 Total Protein Albumin Lipase Vitamin B12 Folate Stool Occult Blood Influenza Type A (PCR) NEGATIVE Influenza Type B (PCR) NEGATIVE RSV RNA Qual (PCR) NEGATIVE SARS-CoV-2 RNA (RT-PCR) NEGATIVE Blood Type Antibody Screen 06/07/22 06/07/22 06/07/22 16:08 16:08 17:43 WBC RBC Hgb Hct MCV MCH MCHC RDW Plt Count MPV Immature Gran % (Auto) Neut % (Auto) Lymph % (Auto) [place] % (Auto) Eos % (Auto) Baso % (Auto) Lymph # (Auto) [place] # (Auto) Eos # (Auto) Baso # (Auto) Abs Immat Gran (auto) Absolute Neuts (auto) Absolute Nucleated RBC Nucleated RBC % (auto) PT INR APTT Sodium Potassium Chloride Carbon Dioxide Anion Gap BUN Creatinine Estim Creat Clear Calc Estimated GFR POC Glucose Random Glucose Calcium Magnesium Iron TIBC % Saturation Unsat Iron Binding Ferritin Total Bilirubin Direct Bilirubin AST ALT Alkaline Phosphatase Lactate Dehydrogenase Troponin I High Sens 3.0 B-Natriuretic Peptide Total Protein Albumin Lipase Vitamin B12 Folate Stool Occult Blood NEGATIVE Influenza Type A (PCR) Influenza Type B (PCR) RSV RNA Qual (PCR) SARS-CoV-2 RNA (RT-PCR) Blood Type AB Positive Antibody Screen NEGATIVE 06/07/22 06/08/22 06/08/22 22:19 06:05 06:05 WBC 5.8 RBC 2.71 L Hgb 8.6 L Hct 25.6 L MCV 94.5 MCH 31.7 MCHC 33.6 RDW 21.5 H Plt Count 189 MPV 10.6 Immature Gran % (Auto) Neut % (Auto) Lymph % (Auto) [place] % (Auto) Eos % (Auto) Baso % (Auto) Lymph # (Auto) [place] # (Auto) Eos # (Auto) Baso # (Auto) Abs Immat Gran (auto) Absolute Neuts (auto) Absolute Nucleated RBC 0.030 H Nucleated RBC % (auto) 0.5 H PT INR APTT Sodium 139 Potassium 4.3 Chloride 106 Carbon Dioxide 27 Anion Gap 10 L BUN 12 Creatinine 0.94 Estim Creat Clear Calc 113.5 Estimated GFR > 60 POC Glucose 111 Random Glucose 90 Calcium 8.3 L D Magnesium Iron 93 TIBC 230 % Saturation 40 Unsat Iron Binding 137 Ferritin 1155 H Total Bilirubin 1.3 H Direct Bilirubin AST 49 H ALT 60 H Alkaline Phosphatase 52 Lactate Dehydrogenase 255 Troponin I High Sens B-Natriuretic Peptide Total Protein 6.6 Albumin 3.2 L Lipase Vitamin B12 > 2000 H Folate 14.2 Stool Occult Blood Influenza Type A (PCR) Influenza Type B (PCR) RSV RNA Qual (PCR) SARS-CoV-2 RNA (RT-PCR) Blood Type Antibody Screen 06/08/22 06/08/22 07:02 10:53 WBC RBC Hgb Hct MCV MCH MCHC RDW Plt Count MPV Immature Gran % (Auto) Neut % (Auto) Lymph % (Auto) [place] % (Auto) Eos % (Auto) Baso % (Auto) Lymph # (Auto) [place] # (Auto) Eos # (Auto) Baso # (Auto) Abs Immat Gran (auto) Absolute Neuts (auto) Absolute Nucleated RBC Nucleated RBC % (auto) PT INR APTT Sodium Potassium Chloride Carbon Dioxide Anion Gap BUN Creatinine Estim Creat Clear Calc Estimated GFR POC Glucose 93 118 H Random Glucose Calcium Magnesium Iron TIBC % Saturation Unsat Iron Binding Ferritin Total Bilirubin Direct Bilirubin AST ALT Alkaline Phosphatase Lactate Dehydrogenase Troponin I High Sens B-Natriuretic Peptide Total Protein Albumin Lipase Vitamin B12 Folate Stool Occult Blood Influenza Type A (PCR) Influenza Type B (PCR) RSV RNA Qual (PCR) SARS-CoV-2 RNA (RT-PCR) Blood Type Antibody Screen ECG Interpretation: With sinus rhythm at 85/Min; right bundle-branch block pattern. In prior EKG from 2017, this is not seen. Imaging Radiologist's impression: Impressions Chest X-Ray 06/07/22 15:22 IMPRESSION: No evidence of acute disease. Abdomen/Pelvis CT 06/07/22 21:39 IMPRESSION: Diverticulosis. No evidence of diverticulitis. Mild fatty infiltration of the liver. Fleischner guidelines were followed. Chest CTA 06/07/22 21:39 IMPRESSION: No evidence of pulmonary embolism. VTE: negative Assessment and Plan (1) Chest pain on exertion: Status: Acute (2) Myasthenia gravis: Status: Acute (3) Normocytic anemia: Status: Acute Plan Pertinent labs noted. Hemoglobin is 8.6. Yesterday, it was 9.4. Even prior to that, it was 13.7. Hence there is significant drop in hemoglobin since few m onths back. High sensitivity troponin is 3.8 and 3. Cardiac BNP is 11. Overall, his symptoms of chest discomfort on exertion could be anginal but he also has significant anemia. Also, he just got IVIG few days ago. Hence not clear if these is all cardiac or related to the anemia or some combination of the 2. Ideally, should get anemia corrected before any form of ischemic workup. Recheck hemoglobin tomorrow morning. It seems that compared to admission there is already a drop in hemoglobin and overall is much lower than in February hemoglobin. Will start with an echocardiogram tomorrow. Subsequently, to be decided regarding stress test or coronary CTA based on hemoglobin trends. Discussed with Sol Julian. Time Spent With Patient Time: Total time managing care of this patient today 75 minutes. This includes time spent in review of chart, laboratory data, imaging studies, review of telemetry, counseling patient, family, discussion with hospitalist, RN, documentation, coordination of care. Procedures Date of Service Date of Service: 06/08/22
[2022-06-08] MEDS: azaTHIOprine 50 MG TABLET PO ×3 (12:20→20:55)
[2022-06-08] MEDS: Acetaminophen 325 MG TABLET 650 MG PO (15:50)
[2022-06-08 16:01] LABS: Glucose, Whole Blood 98 mg/dL (60-115)
[2022-06-08 19:56] LABS: Glucose, Whole Blood 96 mg/dL (60-115)
[2022-06-08 20:09] LABS: OBS Int Ctl Valid YES; OBS1 NEGATIVE (NEGATIVE)
[2022-06-08] MEDS: Atorvastatin Calcium 20 MG TABLET PO (20:55)
[2022-06-08] MEDS: Enoxaparin Sodium 40 MG/0.4 ML SYRINGE SUBCUT (20:56)
--- NOTE | 2022-06-09 | CA_ITS ---
Acquisition Time: 2022-06-10 10:36:40 Total Exercise Time: 00:05:30 Test Indications: CP, RBBB Medications: SEE H Protocol: SHRUTHI Max HR: 162 BPM 103% of Pred: 156 BPM Max BP: 164/058 mmHG Max Work Load: 4.6 METS Exercise stress test with exercise 5 min 30 sec of Shruthi stage 1 ( stage held due to inability to walk at faster pace) achieving 99% MPHR, with mild sob, no chest discomfort, with isolated PACs and PVCs and one 4 beat atrial tachycardia noted, with normotensive response to exercise, without EKG changes meeting criteira for ischemia, with downslope of ST V2-V3 consistent with RBBB. Test reviewed with Dr Richardson Referred By: Ritchie Richardson Overread By: WADE MCKOY
[2022-06-09 03:37] VITALS: BP 131/71; PULSE 68; RESP 20; TEMP 36.3; O2SAT 100
[2022-06-09] MEDS: Omeprazole 20 MG CAPSULE.DR PO (05:12)
--- NOTE | 2022-06-09 07:00 | CA_ITS ---
Transthoracic Echocardiogram Patient (Last, First, Middle): Blaine Farris, Gender: Male Date of : 1955 Age: 66 Procedure Date: 06/09/2022 Procedure Type: Transthoracic Echocardiogram Location: [facility] – [place] Height: 185.42 cm Weight: 133.81 kg BSA: 2.54 m2 Heart Rate: bpm BP: 131 / 71 mmHg Saloon Keeper: Referring MD: Steven Mcghee MD Symptoms: chest discomfort Study Quality: Fair/Good w Contrast ECG Rhythm: Sinus Conclusions: - Normal left ventricular size and systolic function. There is mildly increased left ventricular wall thickness. The visually estimated ejection fraction is between 60-65%. There is no evidence of regional wall motion abnormalities. - Mildly increased right ventricular cavity size. There is normal right ventricular systolic function. - The left atrium is mildly dilated. - There is mild dilatation of the ascending aorta measuring 3.60 cm. Findings Left Ventricle Normal left ventricular size and systolic function. There is mildly increased left ventricular wall thickness. The visually estimated ejection fraction is between 60-65%. There is no evidence of regional wall motion abnormalities. Diastolic function is normal for age. Right Ventricle Mildly increased right ventricular cavity size. There is normal right ventricular systolic function. Atria The left atrium is mildly dilated. Aortic Valve Normal aortic valve structure and function. There is no aortic valve stenosis. There is no aortic valve regurgitation. Mitral Valve The mitral valve appears normal. There is no mitral valve regurgitation. There is no mitral valve stenosis. Pulmonic Valve Normal pulmonic valve structure and function. There is trace pulmonic valve regurgitation. Tricuspid Valve Normal tricuspid valve structure and function. There is trace tricuspid valve regurgitation. Normal right atrial pressure. There is no evidence of pulmonary hypertension. Great Vessels There is mild dilatation of the ascending aorta measuring 3.60 cm. The visualized portions of the pulmonary artery and branches are normal. Venous The inferior vena cava is normal in size and collapses greater than 50% with inspiration. Pericardium/Pleural There is no evidence of pericardial effusion. Measurements 2D Linear Measurements IVSd: 1.20 0.6-0.9/0.6-1.0 cm LVIDd: 5.02 3.9-5.3/4.2-5.9 cm LVIDd Index: 1.98 2.4-3.2/2.2-3.1 cm/m2 LVIDs: 3.20 2.0-3.6 cm LVPWd: 1.20 0.7-1.1 cm Ao Root: 3.10 2.1-3.5 cm LA Diam: 3.80 2.7-3.8/3.0-4.0 cm LAIDs Index: 1.50 1.5-2.3 cm/m2 LV Mass: 293.29 67-162/88-224 g LV Mass Index: 115.47 43-95/49-115 g/m2 LVOT Diam: 2.50 3.0+(-)1.3 cm Mitral Valve MV Pk E: 0.63 MV PK A: 0.75 MV Decel Time: 178.00 E/A: 0.80 E'Lateral: 12.70 E'Medial: 7.07 E/E' Med: 8.90 E/E' Lat: 5.00 PHT: 52.00 MVA PHT: 4.23 Decel [place]: 3.53 Aortic Valve AoV Pk Rommel: 1.49 AoV Mn Rommel: 1.01 AoV VTI: 0.34 AoV Pk Grad: 9.00 Aov Mn Grad: 5.00 MOSES Cont.VTI: 2.62 LVOT LVOT Pk Rommel: 0.82 LVOT Mn Rommel: 0.55 LVOT VTI: 0.18 LVOT Pk Grad: 3.00 LVOT Mn Grad: 1.00 LVOT Diam: 2.50 LVOT Area: 4.91 Diastolic Function MV Pk E: 0.63 MV Pk A: 0.75 E/A: 0.80 E'Medial: 7.07 E/E' Med: 8.90 E' Laterial: 12.70 E/E' Lat: 5.00 Right Ventricle TAPSE (mm): 29.00 TVS' Rommel: 12.00 Tricuspid Valve TR Pk Rommel: 2.23 TR Pk Grad: 20.00 RA Press: 3.00 RVSP: 23.00 Great Vessels Aorta Ao Root-2D: 3.10 2.0-3.7 cm Ao Asc: 3.60 2.1-3.4 cm Pulmonary Valve PV Pk Rommel: 1.05 Peak PV Grad: 4.00 Updated in Other Vendor System with Status of Final Ritchie Richardson MD electronically signed on 06/09/2022 12:41:51 PM with status of Final
[2022-06-09 07:12] LABS: Hematocrit 27.5 % (42.0-52.0); Hemoglobin 9.3 g/dl (14.0-18.0); Mean Corpuscular HGB Conc 33.8 g/dl (31.0-36.0); Mean Corpuscular Hemoglobin 32.1 pg (27.0-33.0); Mean Corpuscular Volume 94.8 fL (80.0-98.0); Mean Platelet Volume 10.6 fL (9.4-12.4); NRBC Pct Auto 0.6 /100WBC (0.0-0.2); Platelet Count 210 X10*3/uL (160-400); Red Cell Distribution Width 22.1 % (11.0-16.0); White Blood Count 5.2 X10*3/uL (4.8-10.8)
[2022-06-09 07:15] LABS: Glucose, Whole Blood 92 mg/dL (60-115)
[2022-06-09 07:38] VITALS: BP 116/67; PULSE 73; RESP 20; TEMP 36.3; O2SAT 99
[2022-06-09] MEDS: Cyanocobalamin (Vitamin B-12) 1,000 MCG TABLET 1000 MCG PO (08:51)
[2022-06-09] MEDS: azaTHIOprine 50 MG TABLET PO ×3 (08:51→21:03)
[2022-06-09] MEDS: 0.9 % Sodium Chloride Flush 3 ML SYRINGE IVFLUSH ×3 (08:51→21:13)
[2022-06-09] MEDS: Aspirin 81 MG TAB.CHEW PO (08:51)
[2022-06-09] MEDS: Cholecalciferol (Vitamin D3) 25 MCG TABLET PO (08:51)
[2022-06-09] MEDS: Famotidine 20 MG TABLET PO ×2 (08:52→21:03)
[2022-06-09] MEDS: Calcium + Vitamin D 250 MG TABLET 500 MG PO (08:52)
[2022-06-09] MEDS: pyRIDostigmine bromide 60 MG TABLET PO ×2 (08:52→14:39)
[2022-06-09] MEDS: Gabapentin 400 MG CAPSULE 800 MG PO ×3 (08:52→21:03)
[2022-06-09] MEDS: Loratadine 10 MG TABLET PO (08:52)
--- NOTE | 2022-06-09 10:39 | P.PNIM_ITS ---
Subjective Subjective Date of Service: 06/09/22 Interval History: seen and examined this morning follow up for chest heaviness reporting intermittent chest heaviness over the past several days. completed 5 day IVIG infusion on the and symptoms began after that no dizziness, cough at this time Review of Systems Review of Systems: Yes all other systems are reviewed and are negative Constitutional Constitutional: Denies chills and Denies fever(s) ENT Ears, Nose, Mouth, and Throat: Denies dizziness Cardiovascular Cardiovascular: Reports chest pain and Denies palpitations Respiratory Respiratory: Denies cough Gastrointestinal Gastrointestinal: Denies abdominal pain Neurologic Neurologic: Denies dizziness Endocrine Endocrine: Denies palpitations Physical Exam Vital Signs: Vital Signs: Last Vital Signs Temp 97.3 F 06/09/22 07:38 Pulse 73 06/09/22 07:38 Resp 20 06/09/22 07:38 BP 116/67 06/09/22 07:38 Pulse Ox 99 06/09/22 07:38 O2 Del Method Room Air 06/09/22 07:38 BMI result Body Mass Index 38.7 Appearing in no acute distress lung sounds are clear to auscultation heart regular rate rhythm, clear S1, S2 positive bowel sounds, abdomen is soft, nontender neuro patient is alert x3, no focal deficits Objective Data Active Medications Acetaminophen (Acetaminophen 325 Mg Tablet) 650 mg PO Q6H PRN PRN Reason: Pain, Mild (Pain Scale 1-3) Last Admin: 06/08/22 15:50 Dose: 650 mg Documented By: DEWAYNE Aspirin (Aspirin 81 Mg Tab.Chew) 81 mg PO DAILY COUNTS INCLUDE 234 BEDS AT THE [facility] Last Admin: 06/09/22 08:51 Dose: 81 mg Documented By: RADHA Atorvastatin Calcium (Atorvastatin Calcium 20 Mg Tablet) 20 mg PO BEDTIME COUNTS INCLUDE 234 BEDS AT THE [facility] Last Admin: 06/08/22 20:55 Dose: 20 mg Documented By: OMAR-GIBRAN Azathioprine (Azathioprine 50 Mg Tablet) 50 mg PO TID COUNTS INCLUDE 234 BEDS AT THE [facility] Last Admin: 06/09/22 08:51 Dose: 50 mg Documented By: RADHA Benzonatate (Benzonatate 100 Mg Capsule) 100 mg PO TID PRN PRN Reason: cough Calcium Carbonate/Cholecalciferol (Calcium + Vitamin D 250 Mg Tablet) 500 mg PO DAILY COUNTS INCLUDE 234 BEDS AT THE [facility] Last Admin: 06/09/22 08:52 Dose: 500 mg Documented By: RADHA Cyanocobalamin (Cyanocobalamin (Vitamin B-12) 1,000 Mcg Tablet) 1,000 mcg PO D AILY COUNTS INCLUDE 234 BEDS AT THE [facility] Last Admin: 06/09/22 08:51 Dose: 1,000 mcg Documented By: RADHA Docusate Sodium (Docusate Sodium 100 Mg Capsule) 100 mg PO DAILY PRN PRN Reason: Constipation Enoxaparin Sodium (Enoxaparin Sodium 40 Mg/0.4 Ml Syringe) 40 mg SUBCUT Q24H COUNTS INCLUDE 234 BEDS AT THE [facility] Last Admin: 06/08/22 20:56 Dose: 40 mg Documented By: OMAR-GIBRAN Famotidine (Famotidine 20 Mg Tablet) 20 mg PO BID COUNTS INCLUDE 234 BEDS AT THE [facility] Last Admin: 06/09/22 08:52 Dose: 20 mg Documented By: RADHA Gabapentin (Gabapentin 400 Mg Capsule) 800 mg PO TID COUNTS INCLUDE 234 BEDS AT THE [facility] Last Admin: 06/09/22 08:52 Dose: 800 mg Documented By: RADHA Glucose (Glucose Gel 15 Gm Gel..Gram.) 15 gm PO Q15M PRN; Protocol PRN Reason: per Hypoglycemia Standing Ord. Dextrose (D10) 250 mls @ 750 mls/hr IV Q15M PRN; Protocol PRN Reason: per Hypoglycemia Standing Ord. Insulin Human Lispro (Insulin Lispro 100 Unit/Ml 3 Ml Vial) 0 unit SUBCUT QIDACHS COUNTS INCLUDE 234 BEDS AT THE [facility]; Protocol Last Admin: 06/09/22 07:19 Dose: Not Given Documented By: RADHA Non-Admin Reason: No Insulin Coverage Loratadine (Loratadine 10 Mg Tablet) 10 mg PO DAILY COUNTS INCLUDE 234 BEDS AT THE [facility] Last Admin: 06/09/22 08:52 Dose: 10 mg Documented By: RADHA Omeprazole (Omeprazole 20 Mg Capsule.Dr) 20 mg PO DAILY@0630 COUNTS INCLUDE 234 BEDS AT THE [facility] Last Admin: 06/09/22 05:12 Dose: 20 mg Documented By: OMAR-GIBRAN Ondansetron HCl (Ondansetron Hcl 4 Mg/2 Ml Vial) 4 mg IVPUSH Q8H PRN PRN Reason: Nausea and Vomiting Pharmacy Consult (Consult Rx Perform Med Rec) 1 each MISCELLANE ONCE PRN PRN Reason: Consult order Pyridostigmine [place] (Pyridostigmine [place] 60 Mg Tablet) 60 mg PO TID COUNTS INCLUDE 234 BEDS AT THE [facility] Last Admin: 06/09/22 08:52 Dose: 60 mg Documented By: RADHA Simethicone (Simethicone 80 Mg Tab.Chew) 80 mg PO TID PRN PRN Reason: bloating Sodium Chloride (0.9 % Sodium Chloride Flush 3 Ml Syringe) 3 ml IVFLUSH QSHIFT COUNTS INCLUDE 234 BEDS AT THE [facility] Last Admin: 06/09/22 08:51 Dose: 3 ml Documented By: RADHA Vitamin D (Cholecalciferol (Vitamin D3) 25 Mcg Tablet) 25 mcg PO DAILY COUNTS INCLUDE 234 BEDS AT THE [facility] Last Admin: 06/09/22 08:51 Dose: 25 mcg Documented By: RADHA Labs 06/09/22 06:35 06/08/22 06:05 Labs: Laboratory Results - last 24 hr 06/08/22 06/08/22 06/08/22 10:53 15:56 19:30 MCV MCH MCHC RDW Plt Count MPV Absolute Nucleated RBC Nucleated RBC % (auto) POC Glucose 118 H 98 Stool Occult Blood NEGATIVE 06/08/22 06/09/22 06/09/22 19:52 06:35 07:07 MCV 94.8 MCH 32.1 MCHC 33.8 RDW 22.1 H Plt Count 210 MPV 10.6 Absolute Nucleated RBC 0.030 H Nucleated RBC % (auto) 0.6 H POC Glucose 96 92 Stool Occult Blood Assessment and Plan (1) Normocytic anemia: Status: Acute (2) Chest pain on exertion: Status: Acute Plan 66-year-old male with a PMH significant for?bxk-jgyqbrm-ikbacdwue diabetes, myasthenia gravis, HTN, gluten intolerance and cholelithiasis, who presents to the ED with?with 3 days of exertional chest pain/pressure. Pt will be admitted to the hospital for treatment and further evaluation of chest pain/pressure. Chest pain Serial troponins negative, BNP, CXR negative. CTA negative for PE had similar chest pain following IVIG 3 years ago echo results pending possible stress test while inpatient, discuss with cardio Acute on chronic normocytic anemia likely secondary to dilution H/H 13.5/41.5 in February, trending down to 8.6/25.6 overnight. may be component of dilution No evidence of active bleed, denies melena, FOBT neg, b12, folic acid, iron wnl. bili 1.8 on admit but LDH wnl less likely hemolysis. Haptoglobin pending colonoscopy 2020-tubular adenoma repeat FOBT negative above transfusion threshold Follow CBC Myesthenia Gravis no occular symptoms. denies sob, but does have chest heavines - will check FVC continue mestinon, imuran Transaminitis LFTs slightly elevated. No abdominal pain, CT abdomen negative. Levels trending down continue statin for now HTN BP soft, hold hydrochlorothiazide and irbesartan for now Resume home antihypertensives as BP allows Non insulin-dependent diabetes, well controlled Hold metformin Sliding scale insulin Diet Patient is lactose and gluten intolerant Lactose-free, gluten free, and diabetic diet GERD Continue famotidine/prilosec Full Code Attending:?Dr. Silverio DVT Prophylaxis: Lovenox Requires ongoing hospitalization for treatment and further evaluation of chest pain/pressure including specialist evaluation Time Spent With Patient Time: Total time managing care of this patient today ____ minutes. Quality Stroke Does the patient have a stroke diagnosis?: No VTE Prior VTE?: No VTE Risk Level:: Medical - moderate - high VTE Device Contraindication: Treatment Not Indicated VTE Drug Contraindication: N/A - Med Ordered
[2022-06-09 11:16] LABS: Glucose, Whole Blood 102 mg/dL (60-115)
[2022-06-09 11:21] VITALS: BP 111/70; PULSE 73; RESP 20; TEMP 36.6; O2SAT 98
--- NOTE | 2022-06-09 12:15 | PM.PNCARD ---
Subjective Subjective Date of Service: 06/09/22 Interval history: Patient seen and examined at bedside. He is still getting chest discomfort with activity. He describes as an odd pressure-like feeling in the center of the chest. Physical Exam Vital Signs: Last Vital Signs Temp 97.8 F 06/09/22 11:21 Pulse 73 06/09/22 11:21 Resp 20 06/09/22 11:21 BP 111/70 06/09/22 11:21 Pulse Ox 98 06/09/22 11:21 O2 Del Method Room Air 06/09/22 11:21 BMI result Body Mass Index 38.7 GENERAL APPEARANCE: in no acute distress, pleasant. NECK: no carotid bruit, no jugular venous distention. SKIN: no suspicious lesions, warm and dry. HEART: no murmurs, regular rate and rhythm. LUNGS: clear to auscultation bilaterally. ABDOMEN: soft, nontender. EXTREMITIES: no edema. PERIPHERAL PULSES: equal. NEUROLOGIC: No gross deficits, AAO X 3 Objective Labs and Meds 06/09/22 06:35 06/08/22 06:05 Lab results: Laboratory Results - last 24 hr 06/08/22 06/08/22 06/08/22 15:56 19:30 19:52 WBC RBC Hgb Hct MCV MCH MCHC RDW Plt Count MPV Absolute Nucleated RBC Nucleated RBC % (auto) POC Glucose 98 96 Stool Occult Blood NEGATIVE 06/09/22 06/09/22 06/09/22 06:35 07:07 11:10 WBC 5.2 RBC 2.90 L Hgb 9.3 L Hct 27.5 L MCV 94.8 MCH 32.1 MCHC 33.8 RDW 22.1 H Plt Count 210 MPV 10.6 Absolute Nucleated RBC 0.030 H Nucleated RBC % (auto) 0.6 H POC Glucose 92 102 Stool Occult Blood Progress Note: A&P Assessment and plan (1) Chest pain on exertion: Status: Acute (2) Myasthenia gravis: Status: Acute (3) Normocytic anemia: Status: Acute Plan Pleasant 66 year gentleman who is presenting for new onset chest discomfort. He also noticed to be anemic but hemoglobin is stable. He has normocytic anemia. His iron stores are normal. Fecal occult blood is negative. He has not noticed any blood in stool or black stools. He has risk factors for coronary artery disease. He is complaining of exertional chest discomfort concerning for angina. I think Hematology to see him to see if we can understand the cause for his anemia. He is getting symptoms with minimal exertion and I think stress testing may be quite limited. We may have to consider other Lexiscan or if no bleeding concerns found then diagnostic angiography. Will decide based on further information. Will review his echocardiogram today. Thank you for allowing me to participate in the care of your patient. Please feel free to contact me if you have any questions. Time Spent With Patient Time: Total time managing care of this patient today ____ minutes. Progress Note: Quality Stroke Does the patient have a stroke diagnosis?: No Procedures Date of Service Date of Service: 06/09/22
[2022-06-09 12:46] LABS: Appearance Urine Cloudy; Color Urine Yellow; Glucose Urine UA Negative (Negative); Leukocyte Esterase Urine Small (1+) (Negative); Nitrite Urine Negative (Negative); PH 7.5 (5.0-9.0); UMIC TRIGGER UACC YES; Urine Blood Negative (Negative); Urine Ketones Negative (Negative); Urine Protein Negative (Neg-Trace)
[2022-06-09 12:51] LABS: Bacteria Urine 4+ (None Seen); Hyaline Casts Urine 0-2 /LPF (0-2); RBC Urine 0-2 /HPF (0-2); Squamous Epithelial Cell Urine 0-2 /HPF (0-2); UACC Culture Trigger YES
[2022-06-09 13:46] LABS: Retic HGB Equivalent 36.2 pg (30.0-35.0); Reticulocyte Percent 8.6 % (0.5-1.8); Reticulocytes Absolute 0.251 X10*6/uL (0.026-0.095)
--- NOTE | 2022-06-09 14:15 | PM.HEMONCCN ---
Subjective - Subjective Chief complaint: Chest discomfort/shortness of breath Patient: new to practice Consult date: 06/09/22 Primary Care Provider: Christopher Wang MD HPI - Consult Narrative Reason for consult: Anemia Narrative: Blaine Farris is a 66 year old male with multiple medical problems including myasthenia gravis, iho-itvojyf-vkyqehndo diabetes, hypertension who presented to ED with symptoms of chest discomfort and shortness of breath that has been ongoing since last 06/05/2022. Patient states that he received IVIG for 5 days, last dose was received on 05/30/2022 and he was supposed to go for cholecystectomy on 06/05/2022 at [facility]. However patient decided to cancel surgery. IVIG was given in preparation for upcoming surgery. He has received this in the past without any complications. Patient is not sure if he got any blood work before the IVIG infusion. He was diagnosed with myasthenia gravis around 8 years ago. Initially he was on Mestinon and prednisone, for the last 4 years he has been on Imuran. He is followed by neurologist at [facility]. Last CBC in February showed a hemoglobin of 13.7 with normal WBC and platelets. On current admission his hemoglobin is down to 8.6 gram/dL with elevated RDW, elevated ferritin and vitamin B12 level. LDH is normal but the bilirubin was elevated at 1.8 mg/dL on 06/07/2022. Today he says he is slightly better in terms of chest discomfort. He was able to walk around with minimal shortness of breath. He denies any other complaints in the last few weeks to months such as loss of appetite or weight loss. No change in bowel habits, hematochezia melena. He does report increased frequency of urinary tract infections. He was last treated with Macrobid in March 2022. Review of Systems - Constitutional Reports as per HPI, Reports fatigue, Reports lack of energy, Reports malaise, Denies weight loss - Cardiovascular Reports no additional cardiovascular complaints - Respiratory Reports no additional respiratory complaints - Gastrointestinal Reports no additional gastrointestinal complaints - Neurologic Reports no additional neurologic complaints, Reports as per HPI, Denies dizziness Oncology Screenings - ECOG Performance Status ECOG Performance Status: 1 [facility] Medical History: Medical History (Last Reviewed 06/08/22 @ 06:45 by Kylie Sebastian RN) Diabetes Hypertension Myasthenia gravis Family History: Family History (Last Updated 06/08/22 @ 11:14 by Steven Mcghee MD) Mother No problems noted. Father No problems noted. Surgical History: Surgical History (Last Reviewed 06/08/22 @ 06:45 by Kylie Sebastian RN) H/O meniscectomy of right knee H/O spinal fusion Social History: Social History (Last Reviewed 06/07/22 @ 21:18 by PANKAJ Hawthorne) Living Situation History: Household Members: Spouse Household Members: Children Housing: House Do you presently have visiting nurse or other home services: No Tobacco History: Patient Tobacco Use Status: Never used Tobacco Occupation Assessmet: service: No Current occupational status: disabled Home Medications and Allergies Current Medications: Current Medications Acetaminophen (Acetaminophen 325 Mg Tablet) 650 mg PO Q6H PRN PRN Reason: Pain, Mild (Pain Scale 1-3) Last Admin: 06/08/22 15:50 Dose: 650 mg Aspirin (Aspirin 81 Mg Tab.Chew) 81 mg PO DAILY [facility] Last Admin: 06/09/22 08:51 Dose: 81 mg Atorvastatin Calcium (Atorvastatin Calcium 20 Mg Tablet) 20 mg PO BEDTIME [facility] Last Admin: 06/08/22 20:55 Dose: 20 mg Azathioprine (Azathioprine 50 Mg Tablet) 50 mg PO TID [facility] Last Admin: 06/09/22 08:51 Dose: 50 mg Benzonatate (Benzonatate 100 Mg Capsule) 100 mg PO TID PRN PRN Reason: cough Calcium Carbonate/Cholecalciferol (Calcium + Vitamin D 250 Mg Tablet) 500 mg PO DAILY [facility] Last Admin: 06/09/22 08:52 Dose: 500 mg Cyanocobalamin (Cyanocobalamin (Vitamin B-12) 1,000 Mcg Tablet) 1,000 mcg PO DAILY [facility] Last Admin: 06/09/22 08:51 Dose: 1,000 mcg Docusate Sodium (Docusate Sodium 100 Mg Capsule) 100 mg PO DAILY PRN PRN Reason: Constipation Enoxaparin Sodium (Enoxaparin Sodium 40 Mg/0.4 Ml Syringe) 40 mg SUBCUT Q24H [facility] Last Admin: 06/08/22 20:56 Dose: 40 mg Famotidine (Famotidine 20 Mg Tablet) 20 mg PO BID [facility] Last Admin: 06/09/22 08:52 Dose: 20 mg Gabapentin (Gabapentin 400 Mg Capsule) 800 mg PO TID [facility] Last Admin: 06/09/22 08:52 Dose: 800 mg Glucose (Glucose Gel 15 Gm Gel..Gram.) 15 gm PO Q15M PRN; Protocol PRN Reason: per Hypoglycemia Standing Ord. Dextrose (D10) 250 mls @ 750 mls/hr IV Q15M PRN; Protocol PRN Reason: per Hypoglycemia Standing Ord. Insulin Human Lispro (Insulin Lispro 100 Unit/Ml 3 Ml Vial) 0 unit SUBCUT QIDACHS [facility]; Protocol Last Admin: 06/09/22 11:11 Dose: Not Given Loratadine (Loratadine 10 Mg Tablet) 10 mg PO DAILY [facility] Last Admin: 06/09/22 08:52 Dose: 10 mg Omeprazole (Omeprazole 20 Mg Capsule.Dr) 20 mg PO DAILY@0630 [facility] Last Admin: 06/09/22 05:12 Dose: 20 mg Ondansetron HCl (Ondansetron Hcl 4 Mg/2 Ml Vial) 4 mg IVPUSH Q8H PRN PRN Reason: Nausea and Vomiting Pharmacy Consult (Consult Rx Perform Med Rec) 1 each MISCELLANE ONCE PRN PRN Reason: Consult order Pyridostigmine [place] (Pyridostigmine [place] 60 Mg Tablet) 60 mg PO TID [facility] Last Admin: 06/09/22 08:52 Dose: 60 mg Simethicone (Simethicone 80 Mg Tab.Chew) 80 mg PO TID PRN PRN Reason: bloating Sodium Chloride (0.9 % Sodium Chloride Flush 3 Ml Syringe) 3 ml IVFLUSH QSHIFT [facility] Last Admin: 06/09/22 08:51 Dose: 3 ml Vitamin D (Cholecalciferol (Vitamin D3) 25 Mcg Tablet) 25 mcg PO DAILY [facility] Last Admin: 06/09/22 08:51 Dose: 25 mcg Home Medications Medication Instructions Recorded Confirmed Type calcium carbonate 600 mg-vitamin 1 tab PO BID 02/28/22 06/08/22 History D3 10 mcg (400 unit) tablet aspirin 81 mg chewable tablet 1 tab PO DAILY 06/07/22 06/08/22 History azathioprine 50 mg tablet 50 mg PO BID 06/07/22 06/08/22 History benzonatate 100 mg capsule 100 mg PO TID PRN cough 06/07/22 06/07/22 History cetirizine 10 mg tablet 10 mg BEDTIME 06/07/22 06/08/22 History cholecalciferol (vitamin D3) 25 25 mcg PO DAILY 06/07/22 06/07/22 History mcg (1,000 unit) tablet cyanocobalamin (vitamin B-12) 1,000 mcg PO DAILY 06/07/22 06/08/22 History 1,000 mcg tablet famotidine 20 mg tablet 20 mg PO BID 06/07/22 06/07/22 History gabapentin 800 mg tablet 800 mg PO TID 06/07/22 06/07/22 History metformin 500 mg tablet,extended 500 mg PO BEDTIME 06/07/22 06/08/22 History release 24 hr omeprazole 20 mg capsule,delayed 20 mg PO BID 06/07/22 06/08/22 History release pyridostigmine bromide 60 mg tablet 60 mg PO BID 06/07/22 06/08/22 History simethicone 125 mg capsule (Gas 125 mg PO TID PRN bloating 06/07/22 06/07/22 History Relief Extra Strength) simvastatin 40 mg tablet 40 mg PO BEDTIME 06/07/22 06/08/22 History brinzolamide 1 %-brimonidine 0.2 % 1 drp ophthalmic (eye) BID 06/08/22 06/08/22 History eye drops,suspension (Simbrinza) fluticasone propionate 44 2 puff inhalation BID PRN 06/08/22 06/08/22 History mcg/actuation HFA aerosol inhaler Shortness Of Breath Or Wheezing (Flovent HFA) irbesartan 150 1 tab PO DAILY 06/08/22 06/08/22 History mg-hydrochlorothiazide 12.5 mg tablet Allergies Allergy/AdvReac Type Severity Reaction Status Date / Time No Known Allergies Allergy Verified 06/07/22 14:33 [No Known Allergies*] Physical Exam Vital signs: Vital Signs Temp 97.8 F 06/09/22 11:21 Pulse 73 06/09/22 11:21 Resp 20 06/09/22 11:21 BP 111/70 06/09/22 11:21 Pulse Ox 98 06/09/22 11:21 O2 Del Method Room Air 06/09/22 11:21 Intake & Output 06/08/22 06/09/22 06/09/22 18:59 06:59 18:59 Intake Total 1091.667 / 1091.667 Output Total 500 / 500 Balance 1091.667 / 1091.667 -500 / -500 Urine Output (Average ml/kg/hr) 0.31 Intake: Intake, IV Amount 1091.667 / 1091.667 0.9 % Sodium Chloride 1,000 ml 1091.667 / 1091.667 @ 125 mls/hr IVCONT .Q8H [facility] Rx #:[id number] Output: Output, Urine Amount 500 / 500 Other: NPO Yes Breakfast % Eaten 100% Number of Unmeasured Voids 2 1 2 Number of Bowel Movements 1 Urine Bathroom Bathroom Bathroom Urine Color Yellow Last Bowel Movement 06/08/22 Stool Bathroom Stool Amount Small Stool Color Brown Stool Consistency Pasty Weight 133 kg - Constitutional Present: no acute distress - Routine HEENT Exam Head: Present: normal inspection Eye: Present: EOMI, normal appearance - Routine Neck Exam Present: supple. Absent: lymphadenopathy - Routine Respiratory Exam Absent: accessory muscle use - Routine Cardiovascular Exam Cardiovascular: Present: S1, S2 - Routine Extremities Exam Absent: pedal edema - Routine Skin Exam Present: intact. Absent: cyanosis Hem/Onc Consult Result - Labs CBC & Chem 7: 06/09/22 06:35 06/08/22 06:05 Labs: Short CBC 06/09/22 Range/Units 06:35 WBC 5.2 (4.8-10.8) X10*3/uL Hgb 9.3 L (14.0-18.0) g/dl Hct 27.5 L (42.0-52.0) % Plt Count 210 (160-400) X10*3/uL Urine 06/09/22 Range/Units 12:15 Urine Color Yellow Urine Appearance Cloudy Urine pH 7.5 (5.0-9.0) Ur Specific [place] 1.010 (1.005-1.025) Urine Protein Negative (Neg-Trace) mg/dL Urine Glucose (UA) Negative (Negative) mg/dL Assessment and Plan Patient Active problem list reviewed?: Yes (1) Normocytic anemia Status: Acute Assessment and plan: 1. This is a pleasant 66-year-old male with myasthenia gravis who is on chronic azathioprine now presenting with normocytic anemia after recent IVIG, last dose received on 05/30/2022. He appears to have received 1-2 g per kilos for total dose of IVIG at [facility] in anticipation of cholecystectomy. Patient decided to postpone surgery. He presented with symptoms of chest discomfort and shortness of breath 1 week after completion of IVIG. He is noted to be anemic with elevated bilirubin and retic count suggestive of hemolysis. He has no hematinic deficiencies or evidence of blood loss. He does report episodes of urinary tract infection in the recent months, he was treated 3 times in the last 6 months, last treatment with Macrobid was in March 2022. Therefore less likely for anemia to be related to antibiotics. There is no evidence of acute or chronic gastrointestinal blood losses. Retic count is significantly elevated. Direct Sara test is negative, haptoglobin level is pending. Azathioprine can also be associated with cytopenias/bone marrow disorder and aplastic anemia. However given the acuity of symptoms in relation to having received IVIG in the recent past, patient most likely he developed hemolytic anemia which can be an adverse effect of IVIG. This is usually transient and occurs 5-10 days after IVIG infusion. Monitor CBC daily. Anemia appears to be resolving spontaneously. He does not need a blood transfusion at this time unless indicated by Cardiology. I thank you for the consultation, will follow with you. - Time Spent With Patient Time Spent with Patient (in minutes): 20
[2022-06-09] MEDS: cefTRIAXone sodium 1 GM in 0.9 % Sodium Chloride 50 ML IV (14:39)
[2022-06-09 15:46] VITALS: BP 124/64; PULSE 72; RESP 20; TEMP 36; O2SAT 100
[2022-06-09 16:58] LABS: Glucose, Whole Blood 104 mg/dL (60-115)
[2022-06-09 19:31] VITALS: BP 138/71; PULSE 75; RESP 20; TEMP 36; O2SAT 99
[2022-06-09 20:11] LABS: Glucose, Whole Blood 131 mg/dL (60-115)
[2022-06-09] MEDS: Atorvastatin Calcium 20 MG TABLET PO (21:03)
[2022-06-09] MEDS: Enoxaparin Sodium 40 MG/0.4 ML SYRINGE SUBCUT (21:14)
[2022-06-10] VITALS: BP 82/42; PULSE 62; RESP 20; TEMP 36.1; O2SAT 97
[2022-06-10] MEDS: Albumin Human 25 % 100 ML IV (01:10)
[2022-06-10 03:35] VITALS: BP 100/52; PULSE 66; RESP 20; TEMP 36.1; O2SAT 99
[2022-06-10] MEDS: Omeprazole 20 MG CAPSULE.DR PO (06:11)
[2022-06-10 07:42] VITALS: BP 121/71; PULSE 69; RESP 16; TEMP 36.2; O2SAT 99
[2022-06-10 07:57] LABS: Glucose, Whole Blood 92 mg/dL (60-115)
[2022-06-10 08:27] LABS: Hematocrit 28.5 % (42.0-52.0); Hemoglobin 9.6 g/dl (14.0-18.0)
[2022-06-10] MEDS: Famotidine 20 MG TABLET PO (08:59)
[2022-06-10] MEDS: pyRIDostigmine bromide 60 MG TABLET PO ×2 (08:59→14:15)
[2022-06-10] MEDS: Calcium + Vitamin D 250 MG TABLET 500 MG PO (09:00)
[2022-06-10] MEDS: Aspirin 81 MG TAB.CHEW PO (09:00)
[2022-06-10] MEDS: Loratadine 10 MG TABLET PO (09:00)
[2022-06-10] MEDS: Cyanocobalamin (Vitamin B-12) 1,000 MCG TABLET 1000 MCG PO (09:00)
[2022-06-10] MEDS: Cholecalciferol (Vitamin D3) 25 MCG TABLET PO (09:00)
[2022-06-10] MEDS: azaTHIOprine 50 MG TABLET PO ×2 (09:00→14:15)
[2022-06-10] MEDS: Gabapentin 400 MG CAPSULE 800 MG PO ×2 (09:00→14:15)
[2022-06-10] MEDS: 0.9 % Sodium Chloride Flush 3 ML SYRINGE IVFLUSH (09:01)
[2022-06-10 12:00] VITALS: BP 122/68; PULSE 75; RESP 16; TEMP 36.2; O2SAT 98
[2022-06-10 13:06] LABS: Glucose, Whole Blood 94 mg/dL (60-115)
--- NOTE | 2022-06-10 13:15 | P.PNIM_ITS ---
Subjective Subjective Date of Service: 06/10/22 Interval History: seen and examined this morning follow up for chest heaviness feeling better today no dizziness, cough at this time Review of Systems Review of Systems: Yes all other systems are reviewed and are negative Constitutional Constitutional: Denies chills and Denies fever(s) ENT Ears, Nose, Mouth, and Throat: Denies dizziness Cardiovascular Cardiovascular: Reports chest pain and Denies palpitations Respiratory Respiratory: Denies cough Gastrointestinal Gastrointestinal: Denies abdominal pain Neurologic Neurologic: Denies dizziness Endocrine Endocrine: Denies palpitations Physical Exam Vital Signs: Vital Signs: Last Vital Signs Temp 97.2 F 06/10/22 12:00 Pulse 75 06/10/22 12:00 Resp 16 06/10/22 12:00 BP 122/68 06/10/22 12:00 Pulse Ox 98 06/10/22 12:00 O2 Del Method Room Air 06/10/22 12:00 BMI result Body Mass Index 38.7 Appearing in no acute distress lung sounds are clear to auscultation heart regular rate rhythm, clear S1, S2 positive bowel sounds, abdomen is soft, nontender neuro patient is alert x3, no focal deficits Objective Data Active Medications Acetaminophen (Acetaminophen 325 Mg Tablet) 650 mg PO Q6H PRN PRN Reason: Pain, Mild (Pain Scale 1-3) Last Admin: 06/08/22 15:50 Dose: 650 mg Documented By: DEWAYNE Aspirin (Aspirin 81 Mg Tab.Chew) 81 mg PO DAILY [facility] Last Admin: 06/10/22 09:00 Dose: 81 mg Documented By: LATA Atorvastatin Calcium (Atorvastatin Calcium 20 Mg Tablet) 20 mg PO BEDTIME [facility] Last Admin: 06/09/22 21:03 Dose: 20 mg Documented By: MILTON Azathioprine (Azathioprine 50 Mg Tablet) 50 mg PO TID [facility] Last Admin: 06/10/22 09:00 Dose: 50 mg Documented By: LATA Benzonatate (Benzonatate 100 Mg Capsule) 100 mg PO TID PRN PRN Reason: cough Calcium Carbonate/Cholecalciferol (Calcium + Vitamin D 250 Mg Tablet) 500 mg PO DAILY [facility] Last Admin: 06/10/22 09:00 Dose: 500 mg Documented By: LATA Cyanocobalamin (Cyanocobalamin (Vitamin B-12) 1,000 Mcg Tablet) 1,000 mcg PO DAILY [facility] Last Admin: 06/10/22 09:00 Dose: 1,000 mcg Documented By: LATA Docusate Sodium (Docusate Sodium 100 Mg Capsule) 100 mg PO DAILY PRN PRN Reason: Constipation Enoxaparin Sodium (Enoxaparin Sodium 40 Mg/0.4 Ml Syringe) 40 mg SUBCUT Q24H [facility] Last Admin: 06/09/22 21:14 Dose: 40 mg Documented By: MILTON Famotidine (Famotidine 20 Mg Tablet) 20 mg PO BID [facility] Last Admin: 06/10/22 08:59 Dose: 20 mg Documented By: LATA Gabapentin (Gabapentin 400 Mg Capsule) 800 mg PO TID [facility] Last Admin: 06/10/22 09:00 Dose: 800 mg Documented By: LATA Glucose (Glucose Gel 15 Gm Gel..Gram.) 15 gm PO Q15M PRN; Protocol PRN Reason: per Hypoglycemia Standing Ord. Dextrose (D10) 250 mls @ 750 mls/hr IV Q15M PRN; Protocol PRN Reason: per Hypoglycemia Standing Ord. Ceftriaxone Sodium 1 gm/ (Sodium Chloride) 50 mls @ 100 mls/hr IV Q24H [facility] Last Infusion: 06/09/22 15:13 Dose: 0 mls/hr Documented By: RADHA Insulin Human Lispro (Insulin Lispro 100 Unit/Ml 3 Ml Vial) 0 unit SUBCUT QIDACHS [facility]; Protocol Last Admin: 06/10/22 13:10 Dose: Not Given Documented By: LATA Non-Admin Reason: No Insulin Coverage Loratadine (Loratadine 10 Mg Tablet) 10 mg PO DAILY [facility] Last Admin: 06/10/22 09:00 Dose: 10 mg Documented By: LATA Omeprazole (Omeprazole 20 Mg Capsule.Dr) 20 mg PO DAILY@0630 [facility] Last Admin: 06/10/22 06:11 Dose: 20 mg Documented By: MILTON Ondansetron HCl (Ondansetron Hcl 4 Mg/2 Ml Vial) 4 mg IVPUSH Q8H PRN PRN Reason: Nausea and Vomiting Pharmacy Consult (Consult Rx Perform Med Rec) 1 each MISCELLANE ONCE PRN PRN Reason: Consult order Pyridostigmine [place] (Pyridostigmine [place] 60 Mg Tablet) 60 mg PO TID [facility] Last Admin: 06/10/22 08:59 Dose: 60 mg Documented By: LATA Simethicone (Simethicone 80 Mg Tab.Chew) 80 mg PO TID PRN PRN Reason: bloating Sodium Chloride (0.9 % Sodium Chloride Flush 3 Ml Syringe) 3 ml IVFLUSH QSHIFT [facility] Last Admin: 06/10/22 09:01 Dose: 3 ml Documented By: LATA Vitamin D (Cholecalciferol (Vitamin D3) 25 Mcg Tablet) 25 mcg PO DAILY [facility] Last Admin: 06/10/22 09:00 Dose: 25 mcg Documented By: LATA Labs 06/10/22 08:12 06/08/22 06:05 Labs: Laboratory Results - last 24 hr 06/09/22 06/09/22 06/09/22 06:35 13:49 16:45 Absolute Retic 0.251 H Percent Retic 8.6 H Immature Retic Fraction 29.0 H Retic Hgb Equivalent 36.2 H POC Glucose 104 ROLANDO, Polyspecific NEGATIVE Positive ROLANDO Work-up TNP 06/09/22 06/10/22 06/10/22 19:58 07:45 13:03 Absolute Retic Percent Retic Immature Retic Fraction Retic Hgb Equivalent POC Glucose 131 H 92 94 ROLANDO, Polyspecific Positive ROLANDO Work-up Microbiology Microbiology Results: Microbiology 06/09/22 12:15 Urine Culture - Preliminary Urine clean catch - Urine kang top Gram negative clyde Assessment and Plan (1) Normocytic anemia: Status: Acute (2) Chest pain on exertion: Status: Acute Plan 66-year-old male with a PMH significant for?[id number] diabetes, myasthenia gravis, HTN, gluten intolerance and cholelithiasis, who presents to the ED with?with 3 days of exertional chest pain/pressure. Pt will be admitted to the hospital for treatment and further evaluation of chest pain/pressure. Chest pain Serial troponins negative, BNP, CXR negative. CTA negative for PE had similar chest pain following IVIG 3 years ago echo results pending Acute on chronic normocytic anemia likely secondary to dilution H/H 13.5/41.5 in February, trending down to 8.6/25.6 overnight. may be component of dilution No evidence of active bleed, denies melena, FOBT neg, b12, folic acid, iron wnl. bili 1.8 on admit but LDH wnl less likely hemolysis. Haptoglobin pending colonoscopy 2020-tubular adenoma repeat FOBT negative above transfusion threshold Follow CBC Myesthenia Gravis no occular symptoms. denies sob, but does have chest heavines - will check FVC continue mestinon, imuran Transaminitis LFTs slightly elevated. No abdominal pain, CT abdomen negative. Levels trending down continue statin for now HTN BP soft, hold hydrochlorothiazide and irbesartan for now Resume home antihypertensives as BP allows Non insulin-dependent diabetes, well controlled Hold metformin Sliding scale insulin Diet Patient is lactose and gluten intolerant Lactose-free, gluten free, and diabetic diet GERD Continue famotidine/prilosec Full Code Attending:?Dr. Silverio DVT Prophylaxis: Lovenox Requires ongoing hospitalization for treatment and further evaluation of chest pain/pressure including specialist evaluation Time Spent With Patient Time: Total time managing care of this patient today ____ minutes. Quality Stroke Does the patient have a stroke diagnosis?: No VTE Prior VTE?: No VTE Risk Level:: Medical - moderate - high VTE Device Contraindication: Treatment Not Indicated VTE Drug Contraindication: N/A - Med Ordered
--- NOTE | 2022-06-10 13:23 | P.DS_ITS ---
DS: Providers Provider Date of Service: 06/10/22 Date of admission: 06/07/22 21:08 Primary care physician: Christopher Wang MD Consults: 06/07/22 21:07 Consult to Cardiology Routine Consulting Provider: [facility] Cardi[facility] Reason for consultation: Chest pain/pressure 06/09/22 12:23 Consult to Hematology / Oncology Routine Consulting Provider: Alexandra Slaughter Reason for consultation: anemia Has provider been notified: No DS: Diagnosis Discharge Diagnosis (1) Normocytic anemia: Status: Acute (2) Chest pain on exertion: Status: Acute DS: Summary Hospital Course Hospital Course: HP as per admitting provider Pt is a 66-year-old male with a PMH significant for?[id number]-[id number] diabetes, myasthenia gravis, HTN, gluten intolerance and cholelithiasis, who presents to the ED with?with 3 days of exertional chest pain/pressure.? Patient states that he received an infusion of IVIG in anticipation having a cholecystectomy on 06/05/2022.? However, pt decided to postpone the surgery due to still having some questions about possible complications.? On patient notes that he was walking up the stairs when he felt a burning pain that began in the center of his abdomen and then slowly migrated up into his chest.? Says the pain in his chest felt like a pressure, a heavy weight sitting on his chest.? It did not radiate anywhere. Pt felt tired, but not weak in his extremities like draining myasthenia gravis crisis. Patient laid down for an hour before symptoms resolved.? On Thursday patient noted that if he walked around 25 ft he would have similar recurrence of symptoms, again alleviated by resting for around 1 hour.? This morning patient again experienced the chest pressure with going up stairs a decided to get ev aluated at the ED. patient received sublingual nitro and nitropaste which provided some relief.? Pt also notes he had a left-sided abdominal burning sensation while waiting in the ED that lasted about a half an hour. Pt notes he has had IVIG infusions in the past without any problems.? Patient states his normal symptoms when he has a myasthenia gravis crisis are difficulty speaking and swallowing, neither which he experienced this time.? Patient also states he has a chronic dry cough that has not worsened recently.? Pt had 1 day of mild nausea on when symptoms began, but denies fever, chills, vomiting.? No change to bowel or bladder habits.? Denies lightheadedness or dizziness.? No worsening lower leg edema. Of note, patient has been diagnosed with myasthenia gravis for approximately 8 years and his neurologist is Dr. Noel at [facility]. In the ED patient was afebrile but tachypneic up to 22, and hypotensive as low as 95/43. Labs were significant for normocytic anemia of 9.4/27.4 (below baseline), hyperbilirubinemia of 1.8, AST 60, ALT 71, serial troponins negative at 3.8 with repeat flat at 3.0.? Stool negative for occult blood. CXR showed no acute cardiopulmonary process seen. EKG demonstrated normal sinus rhythm with right bundle-branch block, new when compared to EKG from 2017. Pt was treated with aspirin, nitroglycerin, and IVF. Pt will be admitted to the hospital for treatment and further evaluation of chest pain/pressure . Chest pain. Serial troponins negative, BNP, CXR negative. CTA negative for PE. had similar chest pain following IVIG 3 years ago. normal echo with normal EF and no rwma normal stress test. Acute on chronic normocytic anemia. secondary to IVIG hemolysis. H/H 13.5/41.5 in February, trending down to 8.6/25.6 overnight. may be component of dilution No evidence of active bleed, denies melena, FOBT neg, b12, folic acid, iron wnl. bili 1.8 on admit but LDH wnl less likely hemolysis. Haptoglobin pending. colonoscopy 2020-tubular adenoma. repeat FOBT negative. above transfusion threshold. Seen by heme/onc with no further rec. should resolve within 5-10 days Myesthenia Gravis. no occular symptoms. denies sob, but does have chest heavines?. continue mestinon, imuran Transaminitis. LFTs slightly elevated. No abdominal pain, CT abdomen negative. Levels trended down. continue statin HTN. continue home medications Non insulin-dependent diabetes. continue home medications GERD. PPI Time Spent with Patient Time attestation: Total time managing care of this patient today ____ minutes. Discharge coordination time: Greater than 30 minutes Quality: Safe Use of Opioids Does Pt have an Active Cancer Diagnosis on the Problem List?: No Quality: Stroke Does the patient have a stroke diagnosis?: No Physical Exam Vital Signs: Vital Signs: Last Vital Signs Temp 97.2 F 06/10/22 12:00 Pulse 75 06/10/22 12:00 Resp 16 06/10/22 12:00 BP 122/68 06/10/22 12:00 Pulse Ox 98 06/10/22 12:00 O2 Del Method Room Air 06/10/22 12:00 BMI result Body Mass Index 38.7 Appearing in no acute distress head is normocephalic atraumatic eyes pupils are PERRLA sclera is anicteric mouth throat mucous membranes are intact and moist neck is supple no lymphadenopathy, no JVD noted lung sounds are clear to auscultation heart regular rate rhythm, clear S1, S2 positive bowel sounds, abdomen is soft, nontender neuro patient is alert x3, no focal deficits DS: Data Data Completed and Pending Labs on day of discharge: Laboratory Results - last 24 hr 06/09/22 06/09/22 06/09/22 06:35 13:49 16:45 Hgb Hct Absolute Retic 0.251 H Percent Retic 8.6 H Immature Retic Fraction 29.0 H Retic Hgb Equivalent 36.2 H POC Glucose 104 ROLANDO, Polyspecific NEGATIVE Positive ROLANDO Work-up TNP 06/09/22 06/10/22 06/10/22 19:58 07:45 08:12 Hgb 9.6 L Hct 28.5 L Absolute Retic Percent Retic Immature Retic Fraction Retic Hgb Equivalent POC Glucose 131 H 92 ROLANDO, Polyspecific Positive ROLANDO Work-up 06/10/22 13:03 Hgb Hct Absolute Retic Percent Retic Immature Retic Fraction Retic Hgb Equivalent POC Glucose 94 ROLANDO, Polyspecific Positive ROLANDO Work-up Preliminary micro results at discharge 06/09/22 12:15 Urine Culture - Preliminary Urine clean catch - Urine kang top Gram negative clyde Discharge Plan Discharge Anticipated Discharge Date/Time: 06/10/22 13:27 Patient Disposition: Home, Self-Care Discharge Diagnosis: Chest pain Hemolytic anemia Referrals: Christopher Wang MD [Primary Care Provider] - 1 Week Discharge Medications: Continued cetirizine 10 mg tablet 10 mg BEDTIME simethicone [Gas Relief Extra Strength] 125 mg capsule 125 mg PO TID PRN (Reason: bloating) cyanocobalamin (vitamin B-12) 1,000 mcg tablet 1,000 mcg PO DAILY azathioprine 50 mg tablet 50 mg PO BID simvastatin 40 mg tablet 40 mg PO BEDTIME famotidine 20 mg tablet 20 mg PO BID gabapentin 800 mg tablet 800 mg PO TID benzonatate 100 mg capsule 100 mg PO TID PRN (Reason: cough) pyridostigmine bromide 60 mg tablet 60 mg PO BID omeprazole 20 mg capsule,delayed release(DR/EC) 20 mg PO BID aspirin 81 mg tablet,chewable 1 tab PO DAILY metformin 500 mg tablet extended release 24 hr 500 mg PO BEDTIME cholecalciferol (vitamin D3) 25 mcg (1,000 unit) tablet 25 mcg PO DAILY irbesartan-hydrochlorothiazide 150-12.5 mg tablet 1 tab PO DAILY fluticasone propionate [Flovent HFA] 44 mcg/actuation HFA aerosol inhaler 2 puff inhalation BID PRN (Reason: Shortness Of Breath Or Wheezing) Simbrinza 1-0.2 % drops,suspension 1 drp ophthalmic (eye) BID calcium carbonate-vitamin D3 600 mg-10 mcg (400 unit) tablet 1 tab PO BID Discharge Orders: Discharge Order (Routine); Ordered 06/10/22 Ordered By: Tierra Garcia Diet: Advance to usual diet Activity on Discharge: As tolerated Stand Alone Forms: Patient Portal Discharge page Care Plan Goals: Complete resolution of symptoms Health Concerns: Chest pain Hemolytic anemia Plan of Treatment: Primary care provider as needed Take all medications as prescribed The hemolytic anemia that was developed from recent IV IG infusion should resolve within 5-10 days Assessment: See discharge summary
--- NOTE | 2022-06-10 13:41 | MHC.CM.PN ---
Patient has been medically cleared for dc to home today, self care. Last IMM addressed on 06/08/2022.
--- NOTE | 2022-06-10 14:01 | P.PNCA_ITS ---
Subjective Subjective Date of Service: 06/10/22 Interval history: Seen examined at bedside. Feeling better. Hemoglobin has been stable. Physical Exam GENERAL APPEARANCE: in no acute distress, pleasant. NECK: no carotid bruit, no jugular venous distention. SKIN: no suspicious lesions, warm and dry. HEART: no murmurs, regular rate and rhythm. LUNGS: clear to auscultation bilaterally. ABDOMEN: soft, nontender. EXTREMITIES: no edema. PERIPHERAL PULSES: equal. NEUROLOGIC: No gross deficits, AAO X 3 Objective Labs and Meds 06/10/22 08:12 06/08/22 06:05 Lab results: Laboratory Results - last 24 hr 06/09/22 06/09/22 06/09/22 13:49 16:45 19:58 Hgb Hct POC Glucose 104 131 H ROLANDO, Polyspecific NEGATIVE Positive ROLANDO Work-up TNP 06/10/22 06/10/22 06/10/22 07:45 08:12 13:03 Hgb 9.6 L Hct 28.5 L POC Glucose 92 94 ROLANDO, Polyspecific Positive ROLANDO Work-up Progress Note: A&P Assessment and plan (1) Chest pain on exertion: Status: Acute (2) Myasthenia gravis: Status: Acute (3) Normocytic anemia: Status: Acute Plan 66-year-old gentleman presenting with anemia due to hemolysis due to IVIG given for myasthenia gravis. He also developed shortness of breath and chest discomfort at the same time. Troponin, EKG and echocardiography were normal. His hemoglobin has been stable. He had a treadmill only exercise stress test today where he was able to exercise for 5 minute 30 seconds in developed mild chest shortness of breath without any chest discomfort. Did not show any signs of ischemia. He is saying he has been walking around without any significant symptoms. Likely presentation was due to anemia. I have reassured him currently. Follow- up with Dr. Mcghee as outpatient and will get further workup if required. Thank you for allowing me to participate in the care of your patient. Please feel free to contact me if you have any questions. Time Spent With Patient Time: Total time managing care of this patient today ____ minutes. Progress Note: Quality Stroke Does the patient have a stroke diagnosis?: No Procedures Date of Service Date of Service: 06/10/22
[2022-06-10] MEDS: cefTRIAXone sodium 1 GM in 0.9 % Sodium Chloride 50 ML IV (14:16)
[2022-06-10 15:19] LABS: Haptoglobin <8 mg/dL (43-212)
--- NOTE | 2022-06-14 15:33 | P.CDIM_ITS ---
PROVIDER RESPONSE TEXT: To clarify, the appropriate diagnosis supported by the clinical indicators: Overweight QUERY TEXT: PHYSICIAN'S DOCUMENTATION REQUEST Date of Query: 06/10/2022 09:49 AM EDT Patient Name: Blaine Farris Admit Date: 06/08/2022 Dear Tierra Garcia, A review of the medical record indicates additional documentation may be needed. Please review below and update the documentation accordingly. Clinical Indicators: Nursing notes Height and Weight: BMI 38.7 Obese Class II Diabetic diet. If possible, please provide an associated diagnosis related to the abnormal BMI, such as: Overweight Obesity Due to excess calories Obesity Drug induced BMI is not significant Other Other (explain) Clinically unable to determine (explain) Thank you, Symone Bee, CCS, CDIS Use of terms such as suspected, likely, concern for, or probable (associated with a specific diagnosi s that is being evaluated, monitored, or treated as if it exists) are acceptable and can be coded in the inpatient se tting, when documented at the time of discharge. Please use your independent medical judgment in providing your response. THIS QUERY IS PART OF THE PERMANENT MEDICAL RECORD
== END 2022-06-10 15:32 | disposition home or self-care (01) | DRG 809 ==
LOC: HO.ED 19:30 → HO.EDOVER 21:16 → HO.IMC 22:13
PROVIDERS: Emergency Medicine Emergency Medical Services; Internal Medicine; Physician Assistant; Physician Assistant Medical; Admitting Provider Student in an Organized Health Care Education/Training Program; Emergency Provider Emergency Medicine; PCP Internal Medicine; Visit Provider Nurse Practitioner Acute Care
DX: D59.2 Drug-induced nonautoimmune hemolytic anemia (principal); K90.41 Non-celiac gluten sensitivity; T50.Z15A Adverse effect of immunoglobulin, initial encounter; I10 Essential (primary) hypertension; K21.9 Gastro-esophageal reflux disease without esophagitis; E73.9 Lactose intolerance, unspecified; E66.3 Overweight; Z68.38 Body mass index [BMI] 38.0-38.9, adult; G70.00 Myasthenia gravis without (acute) exacerbation; E11.9 Type 2 diabetes mellitus without complications; Z20.822 Contact with and (suspected) exposure to COVID-19; Z98.1 Arthrodesis status; Z79.82 Long term (current) use of aspirin; Z79.51 Long term (current) use of inhaled steroids; Z79.84 Long term (current) use of oral hypoglycemic drugs; Z79.899 Other long term (current) drug therapy
CPT/HCPCS: 0241U; 36415; 71045; 71275; 74177; 80053; 81001; 82248; 82272; 82607; 82728; 82746; 82947; 83010; 83540; 83615; 83690; 83735; 83880; 84484; 85014; 85018; 85025; 85027; 85045; 85610; 85730; 86850; 86880; 86900; 86901; 87086; 87088; 87186; 93005; 93017; 93306; 94010; 99222; 99285; J0696; J1650; P9047; Q9957; Q9967

== ENCOUNTER → 2022-06-17 14:55 | Outpatient (BNVA) | payer MEDICARE, MEDICAID, SELFPAY | PROVIDERS: PCP Internal Medicine; Visit Provider Surgery | DX: G70.00 Myasthenia gravis without (acute) exacerbation (principal); K80.50 Calculus of bile duct without cholangitis or cholecystitis without obstruction; K75.81 Nonalcoholic steatohepatitis (NASH); G47.33 Obstructive sleep apnea (adult) (pediatric); E66.01 Morbid (severe) obesity due to excess calories; E11.9 Type 2 diabetes mellitus without complications; I10 Essential (primary) hypertension; Z68.39 Body mass index [BMI] 39.0-39.9, adult | CPT/HCPCS: 99212 ==

== ENCOUNTER 2022-06-19 07:54 | Outpatient (REF) | payer MEDICARE, MEDICAID, SELFPAY ==
--- NOTE | ~2022-06-19 | US_ITS ---
EXAMINATION: US THYROID CLINICAL INFORMATION: Hypothyroidism COMPARISON: None available. TECHNIQUE: Linear transducer grayscale and color Doppler examination with attention to the region of the thyroid. FINDINGS: SIZE: Measurements of the solitary right thyroid lobe are given in sagittal, anteroposterior and transverse dimensions respectively. Right Thyroid Lobe: 6.4 x 2.8 x 2.6 cm, volume 23.8 mL. Previously 4.7 x 3.5 x 2.6 cm, volume 22 mL. Parenchyma: The gland echotexture is homogeneous. Thyroid vascularity is normal. Left Thyroid Lobe: Surgically absent. Isthmus: Surgically absent. No focal thyroid nodule is seen. NODES: No lymphadenopathy is seen in the tissue surrounding the thyroid gland. US/US thyroid IMPRESSION: Enlarged right lobe with no focal lesion seen. The left lobe has been surgically removed. No change from 12/07/2015. ACR TI-RADS RECOMMENDATION REFERENCE: Ultrasound-guided fine-needle aspiration, followup ultrasound, no further follow up. * TR1 (0 point) and TR2 (2 points): No FNA or follow up * TR3 (3 points): FNA if more than or equal to 2.5 cm in maximum dimension, followup ultrasound in 1, 3 and 5 years if 1.5 to 2.4 cm in maximum dimension. * TR4 (4-6 points): FNA if more than or equal to 1.5 cm in maximum dimension, followup ultrasound in 1, 2, 3 and 5 years if 1 to 1.4 cm in maximum dimension. * TR5 (more than or equal to 7 points): FNA if more than or equal to 1 cm in maximum dimension, followup ultrasound every year for 5 years if 0.5 to 0.9 cm in maximum dimension. * TR3, TR4 or TR5 nodules that are below the size threshold for follow up receive no follow up.
== END 2022-06-19 07:55 | disposition home or self-care (01) ==
LOC: HO.US 07:54
PROVIDERS: PCP Internal Medicine; Visit Provider Internal Medicine
DX: E03.9 Hypothyroidism, unspecified (principal)
CPT/HCPCS: 76536

== ENCOUNTER → 2022-06-23 13:53 | Outpatient (BNVA) | payer MEDICARE, MEDICAID, SELFPAY | PROVIDERS: PCP Internal Medicine; Visit Provider Dietitian, Registered | DX: E66.01 Morbid (severe) obesity due to excess calories (principal); E11.9 Type 2 diabetes mellitus without complications; Z71.3 Dietary counseling and surveillance | CPT/HCPCS: 97802 ==

== ENCOUNTER → 2022-07-21 12:51 | Outpatient (BNVA) | payer MEDICARE, MEDICAID, SELFPAY | PROVIDERS: PCP Internal Medicine; Visit Provider Nurse Practitioner Family | DX: I25.10 Atherosclerotic heart disease of native coronary artery without angina pectoris (principal); I10 Essential (primary) hypertension; R07.89 Other chest pain; E11.9 Type 2 diabetes mellitus without complications; E78.5 Hyperlipidemia, unspecified; K80.50 Calculus of bile duct without cholangitis or cholecystitis without obstruction | CPT/HCPCS: 99212 ==

== ENCOUNTER 2022-08-18 09:08 | Outpatient (REF) | payer MEDICARE, MEDICAID, SELFPAY | END 2022-08-18 09:09 | disposition home or self-care (01) | LOC: HO.LAB 09:08 | PROVIDERS: PCP Internal Medicine; Visit Provider Nurse Practitioner Family | DX: R07.89 Other chest pain (principal); I25.10 Atherosclerotic heart disease of native coronary artery without angina pectoris | CPT/HCPCS: 36415; 80048; 85025; 85610 ==

== ENCOUNTER → 2022-08-26 23:59 | Outpatient (BNV) | payer MEDICARE, MEDICAID, SELFPAY | PROVIDERS: PCP Internal Medicine; Visit Provider Internal Medicine Cardiovascular Disease | DX: I20.8 Other forms of angina pectoris (principal) | CPT/HCPCS: 93458; 99152 ==

== ENCOUNTER 2022-09-09 08:45 | Outpatient (AMB) | payer MEDICARE, MEDICAID, SELFPAY ==
--- NOTE | 2022-09-09 08:49 | A.OFFVIS_ITS ---
Intake Vital Signs 09/09/22 08:53 Height 6 ft 1 in Weight 285 lb BMI 37.6 BP 119/65 Blood Pressure Location Rt brachial Position Sitting Pulse 61 Intake Visit Reasons: 2 1/2 mth follow up RUQ pain Intake Note: Patient here for f/u RUQ pain. States pain comes and goes. Reports 7-8 out of 10 when it flares. Takes tylenol prn. Beam House Inspector Required: No Accompanied by: Self / Same As Patient Allergies No Known Allergies [No Known Allergies*] Allergy (Verified 09/09/22 08:56) HPI HPI Comments History of Present Illness Details The patient is a 66-year-old gentleman with a history of myasthenia gravis and type 2 diabetes that sounds like it is very well controlled (the patient reports his hemoglobin A1c was under 6 when evaluated about 6 months ago, I do not have notes or records) who is seen because of variety of abdominal complaints including right upper quadrant pain and ultrasound demonstrating gallstones. Since last visit, the patient reports increasing bandlike upper abdominal/lower chest pain that occurs after eating certain meals and lasts several hours. The plan to proceed with laparoscopic cholecystectomy in May, and the patient received IV IG prescribed for his myasthenia gravis which caused hemolysis and his hemoglobin dropped to 8.6. The patient was having shortness of breath and was admitted at [facility] [place] 06/07 - 06/10 on the hospitalist service. The patient is still having postprandial indigestion, right upper quadrant aching and low-grade biliary colic type symptoms. He has been evaluated by Cardiology in no discrete, stentable lesion was identified. The patient would like to proceed with cholecystectomy, and given his history of myasthenia gravis, we need to confirm a plan with Dr. Slaughter, the fence machine operator. Previously, the patient a given IV IgG which caused chest pain. The patient was discharged and his last hemoglobin was 9.6. During his hospitalization, he was evaluated by the cardiology team that felt there was no ischemia. The patient is trying to adhere to a low-fat diet but has requested Education. On history, the patient notes that during a myasthenia gravis flare, he was placed on steroids and gained weight up to 350 lb. He is currently in the process of losing weight but has had problems with gas, bloating and in reviewing hospital records, he has had 2 CTs for left lower quadrant pain. He also had an abdominal ultrasound ordered by Dr. Bruce because of umbilical pain and during that test, gallstones were identified. Patient reports a fairly constant right upper quadrant aching that is occasionally worse after eating and now has bandlike tightening or radiation to his LUQ. The patient does have concerns about the stress of surgery in the setting of myasthenia gravis. The patient further notes that he was diagnosed with obstructive sleep apnea and since he has lost weight from 350 lb, he stopped using his CPAP. [facility] Medical History Diabetes Hypertension Myasthenia gravis Myasthenia gravis Normocytic anemia Surgical History H/O meniscectomy of right knee H/O spinal fusion Family History Mother No problems noted. Father No problems noted. Social History Household Members: Spouse and Children Housing: House Do you presently have visiting nurse or other home services: No Alcohol intake: never Patient Tobacco Use Status: Never used Tobacco service: No Current occupational status: disabled Review of Systems Const All systems reviewed & are unremarkable except as noted in HPI and below Reports as per HPI Physical Exam Vital Signs: Last Vital Signs Pulse 61 09/09/22 08:53 BP 119/65 09/09/22 08:53 BMI result Body Mass Index 37.6 Results Reviewed Results Reviewed: CBCD, CMP & A1c are ordered today CBC 08/21/22 Hb 12.6; Plts 169K, wbc 5.1 After his IV IG, his hemoglobin dropped to 8.6. He was admitted on the hospitalist service from 06/07-06/10 Last hemoglobin was up to 9.6. Patient reports repeat labs are pending for this Assessment & Plan Assessment & Plan (1) Cholelithiasis: Code(s): K80.20 - Calculus of gallbladder without cholecystitis without obstruction (2) Intermittent right upper quadrant abdominal pain: Code(s): R10.11 - Right upper quadrant pain (3) Hypertension: Code(s): I10 - Essential (primary) hypertension (4) Myasthenia gravis: Code(s): G70.00 - Myasthenia gravis without (acute) exacerbation (5) DMII (diabetes mellitus, type 2): Code(s): E11.9 - Type 2 diabetes mellitus without complications (6) GABY (obstructive sleep apnea): Code(s): G47.33 - Obstructive sleep apnea (adult) (pediatric) (7) Nonalcoholic steatohepatitis (WILKERSON): Code(s): K75.81 - Nonalcoholic steatohepatitis (WILKERSON) (8) Biliary colic: Code(s): K80.50 - Calculus of bile duct without cholangitis or cholecystitis without obstruction (9) Diabetes: Code(s): E11.9 - Type 2 diabetes mellitus without complications (10) Hyperlipidemia: Code(s): E78.5 - Hyperlipidemia, unspecified Plan I explained the symptoms of biliary colic and recommended laparoscopic cholecystectomy. We will need to coordinate with Cardiology, PCP and Hematology given his comorbidities and possible need for premedication regarding his myasthenia gravis, his recent hemoptysis or any input regarding his recent cardiac complaints. I reviewed the option of continued observation and 2nd opinion which was declined. I also reviewed the inherent risks to surgery which include, but are not limited to: Bleeding that could require another operation or blood transfusion, the need for open surgery, the unlikely but possible issue of bile leak that could require an ERCP, the risk of retained common duct stones that could require an ERCP, the risk of common bile duct injury which would require transfer to a larger institution for another operation. Patient seemed to understand her options, declined a tanning consultant or 2nd opinion and wants to proceed. Instructions regarding diet and activity reviewed and apparently understood. The patient is advised to avoid rich fatty foods postoperatively to avoid GI distress/diarrhea and advised to not lift more than 20 lb for medical reasons to minimize the risk of hernia postoperatively. I recommended that she discuss these restrictions with her employer and that she is not disabled during this time frame but can perform light duty. The patient's questions seemed to be satisfactorily answered. Labs are ordered for today, nonfasting including CBC, CMP and A1c. Patient will void his urinary bladder human capital consultant to surgery, received antibiotics. Orders: Orders Comprehensive Met. Panel Today E11.9 - Type 2 diabetes mellitus without complications, G70.00 - Myasthenia gravis without (acute) exacerbation, I10 - Essential (primary) hypertension, K80.20 - Calculus of gallbladder without cholecystitis without obstruction, R10.11 - Right upper quadrant pain Hemoglobin A1c Today E11.9 - Type 2 diabetes mellitus without complications, G70.00 - Myasthenia gravis without (acute) exacerbation, I10 - Essential (primary) hypertension, K80.20 - Calculus of gallbladder without cholecystitis without obstruction, R10.11 - Right upper quadrant pain Complete Blood Count Auto Diff Today E11.9 - Type 2 diabetes mellitus without complications, G70.00 - Myasthenia gravis without (acute) exacerbation, I10 - Essential (primary) hypertension, K80.20 - Calculus of gallbladder without cholecystitis without obstruction, R10.11 - Right upper quadrant pain Coding Level of Care Code Est Pt Level 4 (00570) Diagnoses Cholelithiasis K80.20 Intermittent right upper quadrant abdominal pain R10.11 Hypertension I10 Myasthenia gravis G70.00 DMII (diabetes mellitus, type 2) E11.9 GABY (obstructive sleep apnea) G47.33 Nonalcoholic steatohepatitis (WILKERSON) K75.81 Biliary colic K80.50 Diabetes E11.9 Hyperlipidemia E78.5
[2022-09-09 08:53] VITALS: BP 119/65; PULSE 61; BMI 37.6
== END 2022-09-09 09:17 | disposition home or self-care (01) ==
PROVIDERS: PCP Internal Medicine; Visit Provider Surgery
DX: K80.20 Calculus of gallbladder without cholecystitis without obstruction (principal); R10.11 Right upper quadrant pain; I10 Essential (primary) hypertension; G70.00 Myasthenia gravis without (acute) exacerbation; E11.9 Type 2 diabetes mellitus without complications; G47.33 Obstructive sleep apnea (adult) (pediatric); K75.81 Nonalcoholic steatohepatitis (NASH); K80.50 Calculus of bile duct without cholangitis or cholecystitis without obstruction; E78.5 Hyperlipidemia, unspecified
CPT/HCPCS: 99214

== ENCOUNTER → 2022-09-09 08:45 | Outpatient (BNVA) | payer MEDICARE, MEDICAID, SELFPAY | PROVIDERS: PCP Internal Medicine; Visit Provider Surgery | DX: K80.20 Calculus of gallbladder without cholecystitis without obstruction (principal); K80.50 Calculus of bile duct without cholangitis or cholecystitis without obstruction; K75.81 Nonalcoholic steatohepatitis (NASH); R10.11 Right upper quadrant pain; E11.9 Type 2 diabetes mellitus without complications; I10 Essential (primary) hypertension; G70.00 Myasthenia gravis without (acute) exacerbation; G47.33 Obstructive sleep apnea (adult) (pediatric); E78.5 Hyperlipidemia, unspecified | CPT/HCPCS: 99212 ==

== ENCOUNTER 2022-09-10 09:41 | Outpatient (REF) | payer MEDICARE, MEDICAID, SELFPAY ==
[2022-09-10 09:53] LABS: MANUAL DIFF FLAG NO
[2022-09-10 10:23] LABS: Basophils Absolute Auto 0.1 X10*3/uL (0.0-0.2); Basophils Percent Auto 1.3 % (0-2); Eosinophils Absolute Auto 0.1 X10*3/uL (0.0-0.4); Eosinophils Percent Auto 1.3 % (0-4); Hematocrit 41.6 % (42.0-52.0); Hemoglobin 13.9 g/dl (14.0-18.0); Imm Gran Abs Auto 0.02 X10*3/uL (0.00-0.03); Imm Gran Pct Auto 0.3 % (0.0-0.4); Lymphocytes Absolute Auto 1.4 X10*3/uL (1.2-4.9); Lymphocytes Percent Auto 22.8 % (20-40); Mean Corpuscular HGB Conc 33.4 g/dl (31.0-36.0); Mean Corpuscular Hemoglobin 30.3 pg (27.0-33.0); Mean Corpuscular Volume 90.6 fL (80.0-98.0); Mean Platelet Volume 11.4 fL (9.4-12.4); Monocytes Absolute Auto 0.3 X10*3/uL (0.1-1.2); Neutrophils Absolute Auto 4.3 x10*3/uL (2.0-8.3); Neutrophils Percent Auto 69.3 % (45-73); Platelet Count 177 X10*3/uL (160-400); Red Blood Count 4.59 X10*6/uL (4.60-5.80); Red Cell Distribution Width 13.8 % (11.0-16.0); White Blood Count 6.2 X10*3/uL (4.8-10.8)
[2022-09-10 10:48] LABS: Estimated Average Glucose 105 mg/dL; Hemoglobin A1c % 5.3 %
[2022-09-10 11:22] LABS: Alanine Aminotransferase 15 U/L (0-40); Alkaline Phosphatase 68 U/L (39-117); Anion Gap 9 (12-20); Aspartate Amino Transferase 16 U/L (5-37); Bilirubin Total 0.4 mg/dL (0.0-1.0); Blood Urea Nitrogen 11 mg/dL (9-16); Calcium 9.3 mg/dL (8.4-10.2); Carbon Dioxide 28 mmol/L (22-29); Chloride 109 mmol/L (96-108); Estimated Glomerular Filt Rate > 60; Glucose Random 95 mg/dL (60-115); Potassium 4.2 mmol/L (3.3-5.1); Sodium 142 mmol/L (135-145)
== END 2022-09-10 09:42 | disposition home or self-care (01) ==
LOC: HO.LAB 09:41
PROVIDERS: PCP Internal Medicine; Visit Provider Surgery
DX: R10.11 Right upper quadrant pain (principal); K80.20 Calculus of gallbladder without cholecystitis without obstruction; I10 Essential (primary) hypertension; E11.9 Type 2 diabetes mellitus without complications; G70.00 Myasthenia gravis without (acute) exacerbation
CPT/HCPCS: 36415; 80053; 83036; 85025

== ENCOUNTER 2022-10-02 05:52 | Day surgery (SDC) | payer MEDICARE, MEDICAID, SELFPAY ==
[2022-09-24 11:19] VITALS: BMI 37.6
--- NOTE | 2022-10-01 08:12 | MHC.SHP ---
Pre-Procedural Eval Section A Date of Service: 10/01/22 The patient is an INPATIENT: No The History & Physical has been completed within 30 days and I have reviewed it.: Yes Section B Chief Complaint: Calculus of bile duct without cholangitis or gisella Allergies: Allergies Allergy/AdvReac Type Severity Reaction Status Date / Time No Known Allergies Allergy Verified 09/09/22 08:56 [No Known Allergies*] Plan I have reviewed the history and physical and performed a pertinent physical examination on my patient. No changes have occurred unless specified. Time Spent With Patient Time: Total time managing care of this patient today ____ minutes.
--- NOTE | 2022-10-01 08:34 | HO.ANESPROP2 ---
Documented by User: Jane Guzman NP 10/01/22 08:42 HPI - Anesthesia Eval Consult details Narrative: 67yo M for Cholecystectomy Laparoscopic, poss open,poss cholangiogram Myesthenia Gravis stable on pyridostigmine (to take DOS) and azathioprine (to hold DOS). Cardiac cleared after w/u: Cardiac cath completed and shows only mild nonobstructive coronary disease. No Coronary findings that support his symptoms. He may proceed with planned abdominal surgery with low cardiac risk. Aspirin can be held as needed. [facility] Active Problems Active Problems: All Active Problems (Updated 09/24/22 @ 11:18 by Nina Garcia RN) Subacromial impingement of right shoulder (Acute) Cholelithiasis (Acute) Intermittent right upper quadrant abdominal pain (Acute) DMII (diabetes mellitus, type 2) (Acute) GABY (obstructive sleep apnea) (Acute) Nonalcoholic steatohepatitis (WILKERSON) (Acute) Biliary colic (Acute) Morbid (severe) obesity due to excess calories (Acute) Cough (Acute) Costochondritis (Acute) Coronary atherosclerosis (Acute) Chest pressure (Acute) Hyperlipidemia (Acute) Myasthenia gravis (Acute) Hypertension (Acute) Diabetes (Acute) Past Medical History Medical History (Updated 09/24/22 @ 11:18 by Nina Garcia RN) Coronary atherosclerosis Costochondritis Diabetes Elevated cholesterol Hypertension Myasthenia gravis WILKERSON (nonalcoholic steatohepatitis) Normocytic anemia Sleep apnea Family History Family History Mother No problems noted. Father No problems noted. Surgical History Surgical History (Updated 09/24/22 @ 11:18 by Nina Garcia RN) H/O colonoscopy H/O meniscectomy of right knee H/O spinal fusion Hx of cardiac catheterization Hx of partial thyroidectomy Social History Social History Household Members: Spouse and Children Housing: House Are you a primary regular senior care provider to a significant other at home: No Do you presently have visiting nurse or other home services: No Alcohol intake: never Patient Tobacco Use Status: Never used Tobacco Are you DNR?: No Advance Directives: No Advance Directives Information Provided: Yes Advance Directives on File: No Recently lost weight without trying: No Eating poorly because of decreased appetite: No Nutrition Risks: No Nutritional Risk Poor oral hygiene: No service: No Current occupational status: disabled Meds Allergies Allergy/AdvReac Type Severity Reaction Status Date / Time No Known Allergies Allergy Verified 09/09/22 08:56 [No Known Allergies*] Home Medications Medication Instructions Recorded Confirmed Last Taken Type calcium carbonate 600 mg-vitamin 1 tab PO BID 02/28/22 09/24/22 06/07/22 09:00 History D3 10 mcg (400 unit) tablet azathioprine 50 mg tablet 50 mg PO BID 06/07/22 09/24/22 06/07/22 09:00 History benzonatate 100 mg capsule 100 mg PO TID PRN cough 06/07/22 09/24/22 06/07/22 09:00 History cholecalciferol (vitamin D3) 25 25 mcg PO DAILY 06/07/22 09/24/22 06/07/22 09:00 History mcg (1,000 unit) tablet cyanocobalamin (vitamin B-12) 1,000 mcg PO DAILY 06/07/22 09/24/22 06/07/22 09:00 History 1,000 mcg tablet gabapentin 800 mg tablet 800 mg PO BID 06/07/22 09/24/22 06/07/22 09:00 History metformin 500 mg tablet,extended 500 mg PO BEDTIME 06/07/22 09/24/22 06/06/22 History release 24 hr omeprazole 20 mg capsule,delayed 20 mg PO BID 06/07/22 09/24/22 06/07/22 09:00 History release pyridostigmine bromide 60 mg tablet 60 mg PO BID 06/07/22 09/24/22 06/07/22 09:00 History simethicone 125 mg capsule (Gas 125 mg PO TID PRN bloating 06/07/22 09/24/22 06/07/22 09:00 History Relief Extra Strength) brinzolamide 1 %-brimonidine 0.2 % 1 drp ophthalmic (eye) BID 06/08/22 09/24/22 06/07/22 09:00 History eye drops,suspension (Simbrinza) aspirin 81 mg chewable tablet 81 mg PO DAILY 07/21/22 09/24/22 Unknown History irbesartan 75 mg tablet 75 mg PO QAM 09/24/22 09/24/22 Unknown History Exam Exam Date and Time: October 01, 2022 0834 Height,Weight and Vital Signs: Height 6 ft 1 in Weight 129.274 kg Pertinent Lab Results Pertinent Lab Results: Laboratory Tests 09/10/22 09/10/22 09:51 09:51 WBC 6.2 Hgb 13.9 L Hct 41.6 L Plt Count 177 Sodium 142 Potassium 4.2 Chloride 109 H Carbon Dioxide 28 BUN 11 Creatinine 0.86 Narrative Narrative: EKG 05/2022 Vent. Rate : 085 BPM ? ? Atrial Rate : 085 BPM ?? P-R Int : 170 ms? QRS Dur : 146 ms ? ? QT Int : 406 ms ? ? ? P-R-T Axes : 054 -21 013 degrees ?? QTc Int : 483 ms ? Normal sinus rhythm Right bundle branch block Abnormal ECG When compared with ECG of 13-JUN-2016 13:53, Right bundle branch block is now Present ECHO 05/2022 Conclusions: - Normal left ventricular size and systolic function. There is ? mildly increased left ventricular wall thickness.? The visually? estimated ejection fraction is between 60-65%.? There is no? ? ? evidence of regional wall motion abnormalities.? - Mildly increased right ventricular cavity size.? There is? ? ? normal right ventricular systolic function.? - The left atrium is mildly dilated. ? - There is mild dilatation of the ascending aorta measuring 3.60 cm.?? Exercise Stress 05/2022 Protocol: PRANAY ? Max HR: 162 BPM? 103% of? Pred: 156 BPM Max BP: 164/058 mmHG Max Work Load: 4.6 METS ? Exercise stress test with exercise 5 min 30 sec of Pranay stage 1 ( stage held ?due to inability to walk at faster pace) achieving 99% MPHR, with mild sob, no ?chest discomfort, with isolated PACs and PVCs and one 4 beat atrial tachycardia ?noted, with normotensive response to exercise, without EKG changes meeting ?criteira for ischemia, with downslope of ST V2-V3 consistent with RBBB. Test ?reviewed with Dr Richardson Cardiac cath 08/2022 Cardiac cath completed and shows only mild nonobstructive coronary disease. No Coronary findings that support his symptoms. Assessment and Plan Assessment Anesthesia Assessment: Chart Reviewed Documented by User: Yuri Allison MD 10/02/22 08:18 HPI - Anesthesia Eval Consult details Narrative: 67yo M for Cholecystectomy Laparoscopic, poss open,poss cholangiogram Myesthenia Gravis stable on pyridostigmine (to take DOS) and azathioprine (to hold DOS). Cardiac cleared after w/u: Cardiac cath completed and shows only mild nonobstructive coronary disease. No Coronary findings that support his symptoms. He may proceed with planned abdominal surgery with low cardiac risk. Aspirin can be held as needed. Pt says he is asymptomatic from his myasthenia. PMFSH Past Medical History Medical History (Updated 09/24/22 @ 11:18 by Nina Garcia RN) Coronary atherosclerosis Costochondritis Diabetes Elevated cholesterol Hypertension Myasthenia gravis WILKERSON (nonalcoholic steatohepatitis) Normocytic anemia Sleep apnea Family History Family History Mother No problems noted. Father No problems noted. Family history of problems with anesthesia: No Surgical History Surgical History (Updated 09/24/22 @ 11:18 by Nina Garcia RN) H/O colonoscopy H/O meniscectomy of right knee H/O spinal fusion Hx of cardiac catheterization Hx of partial thyroidectomy History of Problems with Anesthesia: No Social History Social History Household Members: Spouse and Children Housing: House Are you a primary regular senior care provider to a significant other at home: No Do you presently have visiting nurse or other home services: No Alcohol intake: never Patient Tobacco Use Status: Never used Tobacco Are you DNR?: No Advance Directives: No Advance Directives Information Provided: Yes Advance Directives on File: No Recently lost weight without trying: No Eating poorly because of decreased appetite: No Nutrition Risks: No Nutritional Risk Poor oral hygiene: No service: No Current occupational status: disabled Meds Allergies Allergy/AdvReac Type Severity Reaction Status Date / Time No Known Allergies Allergy Verified 09/09/22 08:56 [No Known Allergies*] Home Medications Medication Instructions Recorded Confirmed Last Taken Type calcium carbonate 600 mg-vitamin 1 tab PO BID 02/28/22 09/24/22 06/07/22 09:00 History D3 10 mcg (400 unit) tablet azathioprine 50 mg tablet 50 mg PO BID 06/07/22 09/24/22 06/07/22 09:00 History benzonatate 100 mg capsule 100 mg PO TID PRN cough 06/07/22 09/24/22 06/07/22 09:00 History cholecalciferol (vitamin D3) 25 25 mcg PO DAILY 06/07/22 09/24/22 06/07/22 09:00 History mcg (1,000 unit) tablet cyanocobalamin (vitamin B-12) 1,000 mcg PO DAILY 06/07/22 09/24/22 06/07/22 09:00 History 1,000 mcg tablet gabapentin 800 mg tablet 800 mg PO BID 06/07/22 09/24/22 06/07/22 09:00 History metformin 500 mg tablet,extended 500 mg PO BEDTIME 06/07/22 09/24/22 06/06/22 History release 24 hr omeprazole 20 mg capsule,delayed 20 mg PO BID 06/07/22 09/24/22 06/07/22 09:00 History release pyridostigmine bromide 60 mg tablet 60 mg PO BID 06/07/22 09/24/22 06/07/22 09:00 History simethicone 125 mg capsule (Gas 125 mg PO TID PRN bloating 06/07/22 09/24/22 06/07/22 09:00 History Relief Extra Strength) brinzolamide 1 %-brimonidine 0.2 % 1 drp ophthalmic (eye) BID 06/08/22 09/24/22 06/07/22 09:00 History eye drops,suspension (Simbrinza) aspirin 81 mg chewable tablet 81 mg PO DAILY 07/21/22 09/24/22 Unknown History irbesartan 75 mg tablet 75 mg PO QAM 09/24/22 09/24/22 Unknown History Exam Airway Mallampati Class: II TM Dist: >3cm Neck ROM: Full Loose/Missing/Broken Teeth: No Heart: ok. see above. Lungs: ok Assessment and Plan Assessment Anesthesia Assessment: Anesthesia Plan Discussed Final Anesthetic Review Family History of Problems with Anesthesia: No History of Problems with Anesthesia: No NPO: Yes ASA Class: III Final Preanesthetic Review: No Changes in Pt Med Stat, Meds/Allgs Chart Reviewed, Consent Obtained/Reviewed and Anes Risks/Benef Reviewed Patient Risk: Intermediate Procedure Risk: Intermediate Anesthetic Plan Anesthetic Plan: GA and Agree w/ Assess. and Plan Disposition: Standard PACU
--- NOTE | 2022-10-01 12:57 | P.OP_ITS ---
Operative Note Operative Note Date of Service: 10/02/22 Narrative: Preop diagnosis: [Biliary colic, myasthenia gravis, NAFLD, obesity, type 2 diabetes] Postop diagnosis: [Same, hepatomegaly] Procedure: [lap gisella] Surgeon: Ted Sarah MD Assist: [Shanice Salazar RN] Anesthesia: [GET, ropivicaine, 0.5%] Estimated blood loss: [10cc] Specimen: [Gallbladder with contents] Intraoperative findings: [Hepatomegaly and fatty liver disease; the cystic duct was 5 mm, cystic artery 3 mm; critical view of safety demonstrated] Indications: [The patient is a 67-year-old gentleman with a history of myasthenia gravis; he also has a history of morbid obesity with the related comorbidities of type 2 diabetes, NAFLD, obstructive sleep apnea. He has been experiencing right upper quadrant pain and at times is describing symptoms of biliary colic. Initial attempt at cholecystectomy required IV IgG administered by Hematology which resulted in hemolysis and delay of procedure. The patient has had continued episodes but some of his constant right upper quadrant pain is likely due to his fatty liver disease which was discussed at length. Given his continued biliary colic type episodes however, the patient wanted to proceed with a laparoscopic cholecystectomy, possibly open and possible cholangiogram. I reviewed the option of continued observation and 2nd opinion given his complex medical issues, but this was declined. I also reviewed the inherent risks to surgery which include, but are not limited to: Bleeding that could require another operation or blood transfusion, the need for open surgery, the unlikely but possible issue of bile leak that could require an ERCP, the risk of retained common duct stones that could require an ERCP, the risk of common bile duct injury which would require transfer to a larger institution for another operation. In the office, we also specifically reviewed the fact that in the stress of any procedure could precipitate an event of myasthenia gravis in addition, his right upper quadrant pain related to fatty liver disease or other etiologies may persist. Patient seemed to understand his options, declined a apprentice carpenter or 2nd opinion and wants to proceed. Pre-op instructions regarding diet and activity restrictions were reviewed and apparently understood. The patient is advised to avoid rich fatty foods postoperatively to avoid GI distress/diarrhea and advised to not lift more than 20 lb for medical reasons to minimize the risk of hernia postoperatively] Procedure: [The patient was identified in preoperative holding and again in the operating room and placed supine on the table. An appropriate time-out was performed and preemptive local used at all trocar insertion sites. I began at the patient's supraumbilical midline and placed a Veress needle through a transverse supraumbilical incision. An appropriate drop test was performed. The needle was connected to high flow and opening pressures were 6 mmHg. A pneumoperitoneum of 15 mmHg was then obtained using carbon dioxide. The Veress needle was then removed and I accessed the patient's abdomen through the supraumbilical midline incision using a 5 mm Optiview trocar and 30 degree/5 mm laparoscopic without incident. Next a a 5 mm epigastric and two 5 mm right subcostal ports were placed with preemptive analgesia under direct laparoscopic vision without incident and the supraumbilical trocar upsized to a 12 mm trocar under direct laparoscopic vision. The gallbladder was clearly identified and grasped by its fundus. There were local adhesions from the gallbladder neck and body to the duodenum and omentum. The significant hepatomegaly added difficulty to the case by prevent ting typical retraction given the size of the liver and the location of the gallbladder. After the limited lysis of adhesions, the gallbladder was retracted cranially and anteriorly and dissection began in the lateral cystic triangle. The cystic duct was identified at its junction on the gallbladder and dissection carried medially, then circumferentially using the [place] dissector and hook. The cystic artery was then carefully identified and circumferentially dissected. Once dissection of both structures was complete and the critical view of safety demonstrated, the duct and artery were double clipped proximally and once distally and sharply divided. Electrocautery was used to remove the gallbladder from its fossa on the liver. Liver bed was inspected for hemostasis and the clips were noted to be on the respective structures. The gallbladder was placed in an Endo-Catch bag and delivered through the umbilicus under direct laparoscopic vision. The abdomen was again inspected with the laparoscoped and a abdomen deflated to assess for hemostasis. The patient was returned to neutral position, the abdomen deflated and the fascia of the supraumbilical incision closed with interrupted Vicryl sutures. Skin was closed with 4-0 Monocryl subcuticular sutures. Mastisol and Steri-Strips were applied followed by Band-Aids. The patient tolerated the procedure well and was extubated recovered in stable condition. All sponge instrument counts were correct. At the patient's request I spoke to his son, Igor, who provided his phone [phone]. I advised Igor of the operation and post-op plan, including the need to be compliant with CPAP due to obstructive sleep apnea, monitoring for evidence of myasthenia gravis and activity restrictions, pain management & bowel regime. Questions seemed to be satisfactorily answered.]
[2022-10-02] VITALS (8 sets, daily range): BP systolic 94–106; BP diastolic 39–57; PULSE 58–71; RESP 12–17; TEMP 36.1; O2SAT 95–96
[2022-10-02 06:28] LABS: Glucose, Whole Blood 97 mg/dL (60-115)
[2022-10-02] MEDS: Lactated Ringers 1,000 ML 100 ML IVCONT (06:36)
[2022-10-02] MEDS: oxyCODONE HCl Immed Release 5 MG TABLET 10 MG PO (09:44)
[2022-10-02] MEDS: Acetaminophen 325 MG TABLET 650 MG PO (09:45)
--- NOTE | 2022-10-02 10:12 | PM.EVENT ---
Event Note Date of Service: 10/02/22 Event Note: Patient seen in PACU. He denies any significant pain and also denies any difficulty breathing, chest pain or weakness. Patient should be stable for discharge. The importance of following postop recommendations was discussed and apparently understood. Time Spent With Patient Time: Total time managing care of this patient today ____ minutes.
== END 2022-10-02 11:05 | disposition home or self-care (01) ==
LOC: HO.SSS 05:53
PROVIDERS: PCP Internal Medicine; Visit Provider Surgery
PROC: 0FT44ZZ Resection of Gallbladder, Percutaneous Endoscopic Approach (ICD-10-PCS; CPT 47562; principal; 2022-10-02 07:30)
DX: K80.10 Calculus of gallbladder with chronic cholecystitis without obstruction (principal); K82.8 Other specified diseases of gallbladder; K75.81 Nonalcoholic steatohepatitis (NASH); E11.9 Type 2 diabetes mellitus without complications; I10 Essential (primary) hypertension; E78.5 Hyperlipidemia, unspecified; G70.00 Myasthenia gravis without (acute) exacerbation; D64.9 Anemia, unspecified; E66.9 Obesity, unspecified; Z68.37 Body mass index [BMI] 37.0-37.9, adult; G47.33 Obstructive sleep apnea (adult) (pediatric); Z79.82 Long term (current) use of aspirin; Z79.84 Long term (current) use of oral hypoglycemic drugs; Z79.899 Other long term (current) drug therapy
CPT/HCPCS: 47562; 82947; 88304; J0690; J1885; J2405; J2795; J3010; Q9967

== ENCOUNTER → 2022-10-02 05:52 | Outpatient (BNV) | payer MEDICARE, MEDICAID, SELFPAY | PROVIDERS: PCP Internal Medicine; Visit Provider Surgery | DX: K80.51 Calculus of bile duct without cholangitis or cholecystitis with obstruction (principal) | CPT/HCPCS: 47562; 99499 ==

== ENCOUNTER 2022-10-13 08:35 | Outpatient (AMB) | payer MEDICARE, MEDICAID, SELFPAY ==
--- NOTE | 2022-10-13 08:42 | MHC.OFFVIS ---
Intake Vital Signs 10/13/22 08:48 Height 6 ft 1 in Weight 276 lb 14.409 oz BMI 36.5 BP 122/63 Blood Pressure Location Rt brachial Position Sitting Pulse 61 Pulse Source Pulse Oximeter Temp 97.9 F Temp Source Tympanic Pulse Oximetry (%) 94 Oxygen Delivery Method Room Air Intake Visit Reasons: S/P lap gisella Intake Note: Pt c/o:stated no concerns Snuff Box Finisher Required: No Paper Colorer: Paper Colorer offered & declined Allergies No Known Allergies [No Known Allergies*] Allergy (Verified 10/13/22 08:48) Medication List - Last Reconciled 10/13/22 by Ted Sarah MD aspirin 81 mg PO DAILY atorvastatin 40 mg PO BEDTIME azathioprine 50 mg PO BID benzonatate 100 mg PO TID PRN brinzolamide-brimonidine 1-0.2 % (Simbrinza) 1 drp ophthalmic (eye) BID calcium carbonate-vitamin D3 600 mg-10 mcg (400 unit) 1 tab PO BID cholecalciferol (vitamin D3) 25 mcg PO DAILY cyanocobalamin (vitamin B-12) 1,000 mcg PO DAILY gabapentin 800 mg PO BID irbesartan 75 mg PO QAM isosorbide mononitrate ER 30 mg PO DAILY metformin ER 500 mg PO BEDTIME omeprazole 20 mg PO BID pyridostigmine bromide 60 mg PO BID simethicone (Gas Relief Extra Strength) 125 mg PO TID PRN HPI HPI Comments History of Present Illness Details The office after laparoscopic cholecystectomy for chronic calculous cholecystitis does on 10/01/2022. The patient is accompanied by his son. He reports that he has been doing well. He took oxycodone for the 1st 3 days, mostly at night and is no longer taking any. He has no pain and is tolerating his regular diet. He otherwise denies any symptoms of double vision, breathing difficulties, chest pain or other problems related to his myasthenia gravis. Bowels are working without difficulty. [facility] Medical History (Updated 10/13/22 @ 09:04 by Ted Sarah MD) Coronary atherosclerosis Costochondritis Diabetes Elevated cholesterol Hypertension Myasthenia gravis WILKERSON (nonalcoholic steatohepatitis) Normocytic anemia Sleep apnea Surgical History H/O colonoscopy H/O meniscectomy of right knee H/O spinal fusion Hx laparoscopic cholecystectomy Hx of cardiac catheterization Hx of partial thyroidectomy Family History Mother No problems noted. Father No problems noted. Social History Household Members: Spouse and Children Housing: House Are you a primary plant care worker to a significant other at home: No Do you presently have visiting nurse or other home services: No Alcohol intake: never Patient Tobacco Use Status: Never used Tobacco service: No Current occupational status: disabled Physical Exam On exam he is anicteric and nontoxic He is in no acute respiratory distress Abdomen is obese, soft with no tenderness His Band-Aids have been removed in his Steri-Strips are in place. Incisions appear to be healing well Results Reviewed Results Reviewed: Pathology confirmed chronic calculous cholecystitis and no evidence of malignancy Assessment & Plan Assessment & Plan (1) Biliary colic: Code(s): K80.50 - Calculus of bile duct without cholangitis or cholecystitis without obstruction (2) Nonalcoholic steatohepatitis (WILKERSON): Code(s): K75.81 - Nonalcoholic steatohepatitis (WILKERSON) (3) GABY (obstructive sleep apnea): Code(s): G47.33 - Obstructive sleep apnea (adult) (pediatric) (4) DMII (diabetes mellitus, type 2): Code(s): E11.9 - Type 2 diabetes mellitus without complications (5) Morbid (severe) obesity due to excess calories: Code(s): E66.01 - Morbid (severe) obesity due to excess calories (6) Myasthenia gravis: Comment: follows w/Dr. No[facility] Code(s): G70.00 - Myasthenia gravis without (acute) exacerbation (7) Hypertension: Code(s): I10 - Essential (primary) hypertension (8) Hepatomegaly: Code(s): R16.0 - Hepatomegaly, not elsewhere classified Plan Instructions regarding diet and activity were reviewed and apparently understood. The patient was offered a work note but stated that he is retired and declined 1. He will refrain from lifting more than 20 lb until a week. The importance of following up regarding his obesity, type 2 diabetes, hepatomegaly and fatty liver disease as well as the possible progression to cirrhosis was discussed. The importance of diet, specifically a lean protein high vegetable diet was recommended. The patient is discharged from my care at this time and will follow-up p.r.n.. Coding Level of Care Code Global (20002) Diagnoses Biliary colic K80.50 Nonalcoholic steatohepatitis (WILKERSON) K75.81 GABY (obstructive sleep apnea) G47.33 DMII (diabetes mellitus, type 2) E11.9 Morbid (severe) obesity due to excess calories E66.01 Myasthenia gravis G70.00 Hypertension I10 Hepatomegaly R16.0
[2022-10-13 08:48] VITALS: BP 122/63; PULSE 61; TEMP 36.6; O2SAT 94; BMI 36.5
== END 2022-10-13 08:58 | disposition home or self-care (01) ==
PROVIDERS: PCP Internal Medicine; Visit Provider Surgery
DX: K80.50 Calculus of bile duct without cholangitis or cholecystitis without obstruction (principal); K75.81 Nonalcoholic steatohepatitis (NASH); G47.33 Obstructive sleep apnea (adult) (pediatric); E11.9 Type 2 diabetes mellitus without complications; E66.01 Morbid (severe) obesity due to excess calories; G70.00 Myasthenia gravis without (acute) exacerbation; I10 Essential (primary) hypertension; R16.0 Hepatomegaly, not elsewhere classified
CPT/HCPCS: 99024

== ENCOUNTER → 2022-10-13 08:35 | Outpatient (BNVA) | payer MEDICARE, MEDICAID, SELFPAY | PROVIDERS: PCP Internal Medicine; Visit Provider Surgery ==

== ENCOUNTER 2023-02-03 08:55 | Outpatient (REF) | payer MEDICARE, MEDICAID, SELFPAY ==
[2023-02-03 14:59] LABS: Alanine Aminotransferase 15 U/L (0-40); Alkaline Phosphatase 77 U/L (39-117); Anion Gap 13 (12-20); Aspartate Amino Transferase 19 U/L (5-37); Bilirubin Total 0.4 mg/dL (0.0-1.0); Blood Urea Nitrogen 13 mg/dL (9-16); Calcium 9.2 mg/dL (8.4-10.2); Carbon Dioxide 25 mmol/L (22-29); Chloride 108 mmol/L (96-108); Cholesterol 118 mg/dL (<200); Estimated Glomerular Filt Rate > 60; Glucose Random 93 mg/dL (60-115); HDL Cholesterol 50 mg/dL (>40); LDL Cholesterol Calculated 51 mg/dL (<100); Potassium 3.9 mmol/L (3.3-5.1); Sodium 142 mmol/L (135-145); Triglycerides 89 mg/dL (<150)
[2023-02-03 15:11] LABS: Creatinine Urine 176.37 mg/dL; Microalbum/Creatinine Ratio Ur 6.2 ug/mg cr (<30)
[2023-02-03 15:18] LABS: TSH reflex Free T4 1.22 uIU/mL (0.32-4.0)
== END 2023-02-03 08:56 | disposition home or self-care (01) ==
LOC: HO.CHCLDS 08:55
PROVIDERS: Visit Provider Internal Medicine
DX: E03.9 Hypothyroidism, unspecified (principal); E11.9 Type 2 diabetes mellitus without complications
CPT/HCPCS: 36415; 80053; 80061; 82043; 82570; 84443

== ENCOUNTER 2023-04-07 12:35 | Outpatient (REF) | payer MEDICARE, MEDICAID, SELFPAY ==
--- NOTE | ~2023-04-07 | MM_ITS ---
EXAMINATION: MM DIAGNOSTIC DIGITAL BREAST TOMOSYNTHESIS, BILATERAL US BREAST LIMITED, RIGHT MAMMOGRAPHY: CLINICAL INFORMATION: 67-year-old male with palpable right axillary lump in the 10:00 region. The patient reports this lump to be palpable only in the last 2 months. COMPARISON: Mammography: There are no prior mammograms for comparison. TECHNIQUE: Digital breast tomosynthesis is performed in both the craniocaudal and mediolateral oblique views along with computer-aided detection (CAD). Synthesized 2D images are generated from the tomosynthesis. FINDINGS: There are scattered areas of fibroglandular density (ACR BI-RADS breast composition Category b). There are no abnormalities of the breast tissue. There is a large, encapsulated appearing right axillary lipoma measuring 8 cm transversely by at least 12 cm longitudinally. The patient reports feeling a lump in this region approximately 2 months ago and reports that it was not present to his palpation prior to that time. The anterior margin of the pectoralis muscle is preserved. This is likely a lipoma confined to the fat of the axilla. ULTRASOUND: CLINICAL INFORMATION: Right axillary lump in a male patient. COMPARISON: None TECHNIQUE: Targeted sonographic evaluation was performed using a high frequency linear transducer. Selected archived documentation. FINDINGS: RIGHT BREAST: There is no abnormality of the breast tissue proper. There is a large lipoma in the right axilla. The definable margins of the lipoma appear circumscribed however, the circumference of this mass is not able to be visualized in its entirety due to its large size. Please see the mammography section above. There is no right axillary adenopathy. MM/MM tomosynthesis diagnostic BI IMPRESSION: No mammographic signs of breast cancer. No left axillary adenopathy. Approximately 12 cm lipoma of the right axillary soft tissues without involvement of the pectoralis muscle. Given the size of the finding, referral to a surgeon is advised. Lipomas of 10 cm or larger should be clinically evaluated for potential resection since they can be histologically aggressive. MRI examination of the axilla would also be helpful to evaluate this finding for enhancement. MRI may be performed at the discretion of the consulting surgeon or other consulting physician. Although ultrasound-guided biopsy is possible, because the mass is large, the potential for biopsy sampling is not insignificant in a lipoma. OVERALL ASSESSMENT: Mammography: BI-RADS 4 - Suspicious finding Ultrasound: BI-RADS 4 - Suspicious finding RECOMMENDATION: Surgical Consult Results were provided to the patient at time of visit by the technologist. This patient's information was entered into a reminder system with a target due date for their next mammogram.
== END 2023-04-07 12:36 | disposition home or self-care (01) ==
LOC: HO.MAMMO 12:35
PROVIDERS: PCP Internal Medicine; Visit Provider Internal Medicine
DX: N63.11 Unspecified lump in the right breast, upper outer quadrant (principal)
CPT/HCPCS: 76642; 77062; 77066

== ENCOUNTER → 2023-04-07 13:30 | Outpatient (BNV) | payer MEDICARE, MEDICAID, SELFPAY | PROVIDERS: PCP Internal Medicine; Visit Provider Radiology Diagnostic Radiology | DX: N63.31 Unspecified lump in axillary tail of the right breast (principal) | CPT/HCPCS: 76642; 77066; G0279 ==

== ENCOUNTER 2023-04-16 09:29 | Outpatient (REF) | payer MEDICARE, MEDICAID, SELFPAY ==
--- NOTE | ~2023-04-16 | XR_ITS ---
EXAMINATION: XR CHEST CLINICAL INFORMATION: History of cough. COMPARISON: Chest radiograph of 06/05/2022 and 05/07/2022. TECHNIQUE: 2 views of the chest. FINDINGS: Dextroscoliosis of the thoracic spine with multilevel degenerative changes. There is no gross pneumothorax. No significant pleural effusion. No focal consolidation to suggest pneumonia. Surgical clips in the upper abdomen. XR/XR chest 2V IMPRESSION: No evidence of pneumonia.
== END 2023-04-16 09:30 | disposition home or self-care (01) ==
LOC: HO.XRAY 09:29
PROVIDERS: PCP Internal Medicine; Visit Provider Family Medicine
DX: R05.9 Cough, unspecified (principal)
CPT/HCPCS: 71046

== ENCOUNTER 2023-04-20 08:37 | Outpatient (REF) | payer MEDICARE, MEDICAID, SELFPAY ==
--- NOTE | ~2023-04-20 | FL_ITS ---
EXAMINATION: FL BARIUM SWALLOW CLINICAL INFORMATION: Globus sensation. Myasthenia gravis COMPARISON: 12/06/2015. TECHNIQUE: Fluoroscopic air contrast esophagram examination was performed utilizing standard techniques with thin and thick barium and effervescent granules. Numerous spot images were obtained. FINDINGS: Lateral cine images of the oropharynx and hypopharynx demonstrate normal swallow mechanism with normal epiglottic inversion and soft palate elevation. There is trace laryngeal penetration with the thick barium. No tracheal penetration, glottic or subglottic aspiration identified. No nasopharyngeal reflux present. Hypopharyngeal structures appear normal without evidence of mass or diverticulum. There are bridging anterior osteophytes of C3-C4 causing minimal extrinsic compression compression of the inferior hypopharynx. This is likely clinically insignificant. There was mild cricopharyngeal achalasia. Dual and single contrast images of the esophagus demonstrate normal caliber and contour. There is felinization of the distal esophagus. No mass or ulcerations are identified. There is narrowing of the GE junction that may represents a benign stricture or achalasia. There is to and fro motion of the barium column with nonpropulsive tertiary contractions noted in the mid and distal esophagus that represents esophageal dysmotility. A small to moderate sized type I hiatal hernia is present. No significant gastroesophageal reflux was seen during the course of the examination and on reflux views. The stomach was not well evaluated on this exam. The C4-C5 disc space appears fused. FLUOROSCOPY TIME: 4 minutes 27 seconds Number of Spot Images: 10 Number of Cine: 8 DOSE AREA PRODUCT: 2343 uGy-m2 (microgray-meter squared) FL/FL barium swallow IMPRESSION: 1. Trace laryngeal penetration with thick barium. No gross glottic or subglottic aspiration. 2. Bridging anterior osteophytes of C3-C4 causing mild posterior indentation of the hypopharynx. This is likely clinically not significant. 3. Felinization of the distal esophagus. This is a benign finding that is usually seen with gastroesophageal reflux, however, no significant reflux was seen during this examination. 4. To and fro motion of the barium column with nonpropulsive tertiary contractions in the mid and distal esophagus consistent with esophageal dysmotility. 5. Narrowing of the GE junction that likely represents achalasia. Cannot definitively exclude a short segment benign stricture. 6. Small to moderate-sized type I hiatal hernia. 7. Mild cricopharyngeal achalasia. This procedure was performed by Bang James PA-C, and supervised by Dr. Carvajal
== END 2023-04-20 08:38 | disposition home or self-care (01) ==
LOC: HO.XRAY 08:37
PROVIDERS: PCP Internal Medicine; Visit Provider Internal Medicine
DX: R13.14 Dysphagia, pharyngoesophageal phase (principal)
CPT/HCPCS: 74220

== ENCOUNTER → 2023-04-20 08:38 | Outpatient (BNV) | payer MEDICARE, MEDICAID, SELFPAY | PROVIDERS: PCP Internal Medicine; Visit Provider Physician Assistant Surgical | DX: R13.14 Dysphagia, pharyngoesophageal phase (principal) | CPT/HCPCS: 74220 ==

== ENCOUNTER 2023-04-21 08:43 | Outpatient (AMB) | payer MEDICARE, MEDICAID, SELFPAY ==
--- NOTE | 2023-04-21 08:46 | A.OFFVIS_ITS ---
Intake Vital Signs 3 04/21/23 08:54 Height 6 ft 1 in Weight 283 lb 8 oz BMI 37.4 BP 134/65 Blood Pressure Location Lt brachial Position Sitting Pulse 61 Intake Visit Reasons: Right axillary lump consult due to size, ? lipoma Intake Note: Patient is seen in office for evaluation and treatment of a large lipoma of the right axilla. Pt c/o: admits to lump for aprox 2 months, denies increase/decrease, pain or discomfort, swelling, discharge mm: 04/07/23 Product Inspection Supervisor Required: No Accompanied by: Self / Same As Patient Allergies No Known Allergies [No Known Allergies*] Allergy (Verified 04/21/23 08:52) Medication List - Last Reconciled 04/21/23 by Sunday Crandall MD aspirin 81 mg PO DAILY atorvastatin 40 mg PO QPM azathioprine 50 mg PO BID benzonatate 100 mg PO TID PRN brinzolamide-brimonidine 1-0.2 % (Simbrinza) 1 drp ophthalmic (eye) BID calcium carbonate-vitamin D3 600 mg-10 mcg (400 unit) 1 tab PO BID cholecalciferol (vitamin D3) 25 mcg PO DAILY cyanocobalamin (vitamin B-12) 1,000 mcg PO DAILY gabapentin 800 mg PO BID irbesartan 75 mg PO QAM metformin ER 500 mg PO BEDTIME omeprazole 20 mg PO BID pyridostigmine bromide 60 mg PO BID simethicone (Gas Relief Extra Strength) 125 mg PO TID PRN HPI HPI Comments 2 History of Present Illness0 Details 67-year-old male patient presenting with a soft tissue mass in the right axilla which was 1st noted several months ago and has not changed significantly over this time. He denies any significant pain when the lump is palpated but is concerned about the lumps presence. Workup with ultrasound and mammogram were felt to be consistent with a very large lipoma. No suspicious findings were identified. He presents today to discuss removal of this lipoma. He denies a previous history of surgery in this location or of previous trauma. He has a past medical history of myasthenia gravis and recently underwent injection with IVIG. He is being followed by Dr. Noel from [facility]. [facility] Medical History Coronary atherosclerosis Costochondritis Elevated cholesterol WILKERSON (nonalcoholic steatohepatitis) Sleep apnea Normocytic anemia Hypertension Diabetes Myasthenia gravis Surgical History Hx laparoscopic cholecystectomy H/O colonoscopy Hx of partial thyroidectomy Hx of cardiac catheterization H/O meniscectomy of right knee H/O spinal fusion Family History Mother No problems noted. Father No problems noted. Social History Household Members: Spouse and Children Housing: House Are you a primary direct support professional caregiver to a significant other at home: No Do you presently have visiting nurse or other home services: No Alcohol intake: never Patient Tobacco Use Status: Never used Tobacco service: No Current occupational status: disabled Review of Systems Const All systems reviewed & are unremarkable except as noted in HPI and below Denies chills, Denies fever(s), Denies headache(s), Denies poor appetite and Denies weakness ENT Denies headache(s) Card Denies chest pain, Denies irregular heart rhythm, Denies palpitations and Denies dyspnea Resp Denies cough, Denies excessive phlegm production and Denies dyspnea GI Denies abdominal pain, Denies bloating, Denies change in bowel habits, Denies constipation, Denies heartburn, Denies diarrhea, Denies nausea and Denies vomiting Denies difficulty urinating and Denies urinary frequency Musc Denies back pain, Denies muscle weakness and Denies numbness Skin/Breast Denies changing lesions and Denies unusual bruising Neuro Denies headache(s), Denies numbness, Denies paresthesias and Denies weakness Psych Denies anxiety and Denies depression Endo Denies palpitations Jaquan/Lymph Denies lymphadenopathy Physical Exam Vital Signs: Last Vital Signs Pulse 61 04/21/23 08:54 BP 134/65 04/21/23 08:54 BMI result Body Mass Index 37.4 Const General: cooperative and no acute distress Nutritional Appearance: well nourished Orientation/consciousness: patient oriented x3 Limitations: no limitations HEENT Head: Yes normocephalic and Yes atraumatic Ears: hearing grossly normal bilaterally Chest Chest/axillae images: 2 1. Large, mobile, and nontender lipoma in the upper outer quadrant breast and lower medial axilla as noted in the diagram. No overlying skin changes are appreciated. Lesion is approximately 10 cm in diameter. Resp Effort & Inspection: normal respiratory effort, no audible wheezes, no cough and no respiratory distress Cardio Jugular venous distension: no JVD GI Inspection: Yes normal to inspection Skin Other: Warm, dry, no rash Neuro General: patient oriented x3 Extrem General: Yes no clubbing, cyanosis or edema Assessment & Plan Assessment & Plan (1) Lipoma of axilla: Code(s): D17.20 - Benign lipomatous neoplasm of skin and subcutaneous tissue of unspecified limb Qualifiers: Laterality: right Qualified Code(s): D17.21 - Benign lipomatous neoplasm of skin and subcutaneous tissue of right arm Plan 67-year-old male patient presenting with a large lipoma of the right axilla. We discussed the options of continued observation versus excision of well as the relative risks and benefits of excision including infection, seroma, hematoma, numbness, lymphedema, and pain. After discussion of the procedure, risks, and alternatives, he consents to excision of the right axillary lipoma. This will be scheduled as a short-stay surgery. Coding Level of Care Code New Pt Level 4 (74669) Diagnoses Lipoma of right axilla D17.21 Laterality: right
[2023-04-21 08:54] VITALS: BP 134/65; PULSE 61; BMI 37.4
== END 2023-04-21 09:05 | disposition home or self-care (01) ==
PROVIDERS: PCP Internal Medicine; Visit Provider Surgery
DX: D17.21 Benign lipomatous neoplasm of skin and subcutaneous tissue of right arm (principal)
CPT/HCPCS: 99204; 99214

== ENCOUNTER → 2023-04-21 08:43 | Outpatient (BNVA) | payer MEDICARE, MEDICAID, SELFPAY | PROVIDERS: PCP Internal Medicine; Visit Provider Surgery | DX: D17.21 Benign lipomatous neoplasm of skin and subcutaneous tissue of right arm (principal) | CPT/HCPCS: 99202 ==

== ENCOUNTER 2023-05-11 06:03 | Day surgery (SDC) | payer MEDICARE, MEDICAID, SELFPAY ==
[2023-05-07 08:30] VITALS: BMI 37.3
--- NOTE | 2023-05-08 09:45 | HO.ANESPROP2 ---
Documented by User: Jane Guzman NP 05/08/23 10:02 HPI - Anesthesia Eval Consult details Narrative: 67yo M for Right Excision Axillary Lipoma s/p lap gisella 09/2022 with GA-ETT 8. Cardiac cleared prior: Cardiac cleared after w/u: Cardiac cath completed and shows only mild nonobstructive coronary disease. No Coronary findings that support his symptoms. He may proceed with planned abdominal surgery with low cardiac risk. Aspirin can be held as needed. Myesthenia Gravis stable on pyridostigmine (to take DOS) and azathioprine (to hold DOS). Pt says he is asymptomatic from his myasthenia. Unalbe to reach patient by phone 05/08/23 to confirm no change to cardiac status, no exac of MG symptoms PMFSH Active Problems Active Problems: All Active Problems (Updated 04/21/23 @ 08:48 by Sunday Crandall MD) Lipoma of axilla (Acute) Hepatomegaly (Acute) Subacromial impingement of right shoulder (Acute) Cholelithiasis (Acute) Intermittent right upper quadrant abdominal pain (Acute) DMII (diabetes mellitus, type 2) (Acute) GABY (obstructive sleep apnea) (Acute) Nonalcoholic steatohepatitis (WILKERSON) (Acute) Biliary colic (Acute) Morbid (severe) obesity due to excess calories (Acute) Cough (Acute) Costochondritis (Acute) Coronary atherosclerosis (Acute) Chest pressure (Acute) Hyperlipidemia (Acute) Myasthenia gravis (Acute) Hypertension (Acute) Diabetes (Acute) Past Medical History Medical History Coronary atherosclerosis Costochondritis Elevated cholesterol WILKERSON (nonalcoholic steatohepatitis) Sleep apnea Normocytic anemia Hypertension Diabetes Myasthenia gravis Family History Family History Mother No problems noted. Father No problems noted. Family history of problems with anesthesia: No Surgical History Surgical History Hx laparoscopic cholecystectomy H/O colonoscopy Hx of partial thyroidectomy Hx of cardiac catheterization H/O meniscectomy of right knee H/O spinal fusion History of Problems with Anesthesia: No Social History Social History Household Members: Spouse and Children Housing: House Are you a primary manager intensive care to a significant other at home: No Do you presently have visiting nurse or other home services: No Alcohol intake: never Patient Tobacco Use Status: Never used Tobacco Use of substances other than those prescribed or required for medical reasons: No Are you DNR?: No Advance Directives: No Advance Directives Information Provided: Yes service: No Current occupational status: disabled Meds Allergies Allergy/AdvReac Type Severity Reaction Status Date / Time No Known Allergies Allergy Verified 05/11/23 07:12 [No Known Allergies*] Home Medications Medication Instructions Recorded Confirmed Last Taken Type calcium carbonate 600 mg-vitamin 1 tab PO BID 02/28/22 05/11/23 06/07/22 09:00 History D3 10 mcg (400 unit) tablet azathioprine 50 mg tablet 50 mg PO BID 06/07/22 05/11/23 05/11/23 01:30 History benzonatate 100 mg capsule 100 mg PO TID PRN cough 06/07/22 05/11/23 06/07/22 09:00 History cholecalciferol (vitamin D3) 25 25 mcg PO DAILY 06/07/22 05/11/23 06/07/22 09:00 History mcg (1,000 unit) tablet cyanocobalamin (vitamin B-12) 1,000 mcg PO DAILY 06/07/22 05/11/23 06/07/22 09:00 History 1,000 mcg tablet gabapentin 800 mg tablet 800 mg PO BID 06/07/22 05/11/23 05/11/23 01:30 History metformin 500 mg tablet,extended 500 mg PO BEDTIME 06/07/22 05/11/23 06/06/22 History release 24 hr omeprazole 20 mg capsule,delayed 20 mg PO BID 06/07/22 05/11/23 05/11/23 01:30 History release pyridostigmine bromide 60 mg tablet 60 mg PO BID 06/07/22 05/11/23 06/07/22 09:00 History simethicone 125 mg capsule (Gas 125 mg PO TID PRN bloating 06/07/22 05/11/23 06/07/22 09:00 History Relief Extra Strength) brinzolamide 1 %-brimonidine 0.2 % 1 drp ophthalmic (eye) BID 06/08/22 05/11/23 06/07/22 09:00 History eye drops,suspension (Simbrinza) aspirin 81 mg chewable tablet 81 mg PO DAILY 07/21/22 05/11/23 05/07/23 History Exam Height,Weight and Vital Signs: Height 6 ft 1 in Weight 128.367 kg Pertinent Lab Results Pertinent Lab Results: Laboratory Tests 09/10/22 02/03/23 09:51 08:57 WBC 6.2 Hgb 13.9 L Hct 41.6 L Plt Count 177 Sodium 142 Potassium 3.9 Chloride 108 Carbon Dioxide 25 BUN 13 Creatinine 0.75 Assessment and Plan Assessment Anesthesia Assessment: Chart Reviewed Final Anesthetic Review Family History of Problems with Anesthesia: No History of Problems with Anesthesia: No Documented by User: Edwardo Doe MD 05/11/23 07:29 PMFSH Past Medical History Medical History Coronary atherosclerosis Costochondritis Elevated cholesterol WILKERSON (nonalcoholic steatohepatitis) Sleep apnea Normocytic anemia Hypertension Diabetes Myasthenia gravis Family History Family History Mother No problems noted. Father No problems noted. Surgical History Surgical History Hx laparoscopic cholecystectomy H/O colonoscopy Hx of partial thyroidectomy Hx of cardiac catheterization H/O meniscectomy of right knee H/O spinal fusion Social History Social History Household Members: Spouse and Children Housing: House Are you a primary manager intensive care to a significant other at home: No Do you presently have visiting nurse or other home services: No Alcohol intake: never Patient Tobacco Use Status: Never used Tobacco Use of substances other than those prescribed or required for medical reasons: No Are you DNR?: No Advance Directives: No Advance Directives Information Provided: Yes service: No Current occupational status: disabled Meds Allergies Allergy/AdvReac Type Severity Reaction Status Date / Time No Known Allergies Allergy Verified 05/11/23 07:12 [No Known Allergies*] Home Medications Medication Instructions Recorded Confirmed Last Taken Type calcium carbonate 600 mg-vitamin 1 tab PO BID 02/28/22 05/11/23 06/07/22 09:00 History D3 10 mcg (400 unit) tablet azathioprine 50 mg tablet 50 mg PO BID 06/07/22 05/11/23 05/11/23 01:30 History benzonatate 100 mg capsule 100 mg PO TID PRN cough 06/07/22 05/11/23 06/07/22 09:00 History cholecalciferol (vitamin D3) 25 25 mcg PO DAILY 06/07/22 05/11/23 06/07/22 09:00 History mcg (1,000 unit) tablet cyanocobalamin (vitamin B-12) 1,000 mcg PO DAILY 06/07/22 05/11/23 06/07/22 09:00 History 1,000 mcg tablet gabapentin 800 mg tablet 800 mg PO BID 06/07/22 05/11/23 05/11/23 01:30 History metformin 500 mg tablet,extended 500 mg PO BEDTIME 06/07/22 05/11/23 06/06/22 History release 24 hr omeprazole 20 mg capsule,delayed 20 mg PO BID 06/07/22 05/11/23 05/11/23 01:30 History release pyridostigmine bromide 60 mg tablet 60 mg PO BID 06/07/22 05/11/23 06/07/22 09:00 History simethicone 125 mg capsule (Gas 125 mg PO TID PRN bloating 06/07/22 05/11/23 06/07/22 09:00 History Relief Extra Strength) brinzolamide 1 %-brimonidine 0.2 % 1 drp ophthalmic (eye) BID 06/08/22 05/11/23 06/07/22 09:00 History eye drops,suspension (Simbrinza) aspirin 81 mg chewable tablet 81 mg PO DAILY 07/21/22 05/11/23 05/07/23 History Exam Airway Mallampati Class: III TM Dist: <=3cm Neck ROM: Full Loose/Missing/Broken Teeth: No Heart: rrr Lungs: cta b/l Assessment and Plan Assessment Anesthesia Assessment: Anesthesia Plan Discussed Final Anesthetic Review NPO: Yes ASA Class: III Final Preanesthetic Review: No Changes in Pt Med Stat, Meds/Allgs Chart Reviewed, Consent Obtained/Reviewed and Anes Risks/Benef Reviewed Patient Risk: Intermediate Procedure Risk: Intermediate Anesthetic Plan Anesthetic Plan: GA Disposition: Standard PACU
[2023-05-11 06:55] VITALS: BP 104/53; PULSE 55; RESP 16; TEMP 36.2; O2SAT 98; BMI 37.5
--- NOTE | 2023-05-11 07:08 | MHC.SHP ---
Pre-Procedural Eval Section A - 24 Hr Update-Section A only Date of Service: 05/11/23 The patient is an INPATIENT: No Changes since office visit: Yes Patient answered all questions; No Cold of Flu in the past 2 weeks, No New Medical Problems and No Changes in Medication The patient has been examined within 24 hours of the surgical procedure. The History & Physical has been completed within 30 days and I have reviewed it.: Yes Section B - Complete if H&P > 30 days Chief Complaint: Benign lipomatous neoplasm of skin and subcutaneou Allergies: Allergies Allergy/AdvReac Type Severity Reaction Status Date / Time No Known Allergies Allergy Verified 04/21/23 08:52 [No Known Allergies*] Plan Diagnosis/Plan: Unchanged I have reviewed the history and physical and performed a pertinent physical examination on my patient. No changes have occurred unless specified. Time Spent With Patient Time: Total time managing care of this patient today ____ minutes.
[2023-05-11] MEDS: Lactated Ringers 1,000 ML 100 ML IVCONT (07:09)
[2023-05-11 07:10] LABS: Glucose, Whole Blood 93 mg/dL (60-115)
--- NOTE | 2023-05-11 07:31 | P.OP_ITS ---
Operative Note Operative Note Date of Service: 05/11/23 Narrative: Preoperative diagnosis: Lipoma right axilla Postoperative diagnosis: Same Procedure: Excision lipoma right axilla Surgeon: Sunday Crandall MD Assistant Manager/Embalmer: Rochelle Quinones PA-C Anesthesia: General endotracheal Indications for procedure: 67-year-old male patient with a large lipoma of the right axilla requesting excision. Operative findings: Lipoma right axilla Specimen: Lipoma right axilla Estimated blood loss: 15 mL Complications: None Procedure details: Patient was brought to the OR placed in a supine position. After administering general anesthesia, the patient's right axilla was prepped with ChloraPrep and draped in a sterile fashion. A surgical time-out was called the consent confirmed. Patient received preoperative antibiotics and Venodyne boots were in place. Local anesthesia was then infiltrated in a curvilinear fashion at the lower end of the axilla directly over the lipoma. Lipoma measured approximately 15 cm in diameter. Incision was created with a 15 blade and carried out through subcutaneous tissue using electrocautery. Dissection was continued through the subcutaneous tissue up to the outer surface of the lipoma. This was then grasped with an Allis clamp and dissected free using combination of electrocautery and blunt dissection. Once the lipoma was completely dissected it was passed off the table and sent to pathology. Hemostasis was assured using electrocautery and free ties of 3-0 Polysorb. Wounds were then irrigated with saline solution and suctioned dry. Deep subcutaneous tissue was then closed using interrupted 3-0 Polysorb sutures. Dermis was reapproximated using interrupted 3-0 Polysorb sutures. Skin was closed using a running subcuticular 4-0 Polysorb suture. Sterile dressings consisting of 4 x 4 gauze and Tegaderm were then applied. The patient tolerated the procedure well. Sponge, instrument, needle counts reported as correct. The patient was transferred to PACU in stable condition.
[2023-05-11 08:41] VITALS: BP 123/71; PULSE 70; RESP 18; TEMP 36.2; O2SAT 100
[2023-05-11 08:46] VITALS: BP 120/68; PULSE 73; RESP 20; O2SAT 100
[2023-05-11 08:51] VITALS: BP 119/65; PULSE 71; RESP 18; O2SAT 100
[2023-05-11 08:56] VITALS: BP 113/62; PULSE 69; RESP 18; O2SAT 97
[2023-05-11 09:11] VITALS: BP 116/61; PULSE 69; RESP 18; TEMP 36.3; O2SAT 97
== END 2023-05-11 09:45 | disposition home or self-care (01) ==
PROVIDERS: PCP Internal Medicine; Visit Provider Surgery
PROC: (CPT 24071; principal; 2023-05-11 07:30)
DX: D17.21 Benign lipomatous neoplasm of skin and subcutaneous tissue of right arm (principal); G70.00 Myasthenia gravis without (acute) exacerbation; I10 Essential (primary) hypertension; I25.10 Atherosclerotic heart disease of native coronary artery without angina pectoris; E78.00 Pure hypercholesterolemia, unspecified; D64.9 Anemia, unspecified; E11.9 Type 2 diabetes mellitus without complications; K75.81 Nonalcoholic steatohepatitis (NASH); G47.33 Obstructive sleep apnea (adult) (pediatric); Z79.82 Long term (current) use of aspirin; Z79.899 Other long term (current) drug therapy; Z79.84 Long term (current) use of oral hypoglycemic drugs; Z98.890 Other specified postprocedural states
CPT/HCPCS: 24071; 82947; 88304; J0690; J2704; J2795; J3010

== ENCOUNTER → 2023-05-11 06:03 | Outpatient (BNV) | payer MEDICARE, MEDICAID, SELFPAY | PROVIDERS: PCP Internal Medicine; Visit Provider Surgery | DX: D17.1 Benign lipomatous neoplasm of skin and subcutaneous tissue of trunk (principal) | CPT/HCPCS: 21931 ==

== ENCOUNTER 2023-05-15 11:00 | Day surgery (SDC) | payer MEDICARE, MEDICAID, SELFPAY ==
--- NOTE | 2023-05-13 15:02 | P.CONAN_ITS ---
HPI - Anesthesia Eval Consult details Narrative: 67yo M for Upper Endoscopy with Balloon Dilitation s/p lipoma excision 05/12/23 with GA (started with LMA 5 to LMA 4 to 2 x attempt with glidescope - see anesthesia record) s/p lap gisella 09/2022 with GA-ETT 8. Cardiac cleared prior: Cardiac cleared after w/u: Cardiac cath completed and shows only mild nonobstructive coronary disease. No Coronary findings that support his symptoms. He may proceed with planned abdominal surgery with low cardiac risk. Aspirin can be held as needed. Myesthenia Gravis stable on pyridostigmine (to take DOS) and azathioprine (to hold DOS). Pt says he is asymptomatic from his myasthenia. Unalbe to reach patient by phone 05/08/23 to confirm no change to cardiac status, no exac of MG symptoms PMFSH Active Problems Active Problems: All Active Problems (Updated 04/21/23 @ 08:48 by Sunday Crandall MD) Lipoma of axilla (Acute) Hepatomegaly (Acute) Subacromial impingement of right shoulder (Acute) Cholelithiasis (Acute) Intermittent right upper quadrant abdominal pain (Acute) DMII (diabetes mellitus, type 2) (Acute) GABY (obstructive sleep apnea) (Acute) Nonalcoholic steatohepatitis (WILKERSON) (Acute) Biliary colic (Acute) Morbid (severe) obesity due to excess calories (Acute) Cough (Acute) Costochondritis (Acute) Coronary atherosclerosis (Acute) Chest pressure (Acute) Hyperlipidemia (Acute) Myasthenia gravis (Acute) Hypertension (Acute) Diabetes (Acute) Past Medical History Medical History Coronary atherosclerosis Costochondritis Elevated cholesterol WILKERSON (nonalcoholic steatohepatitis) Sleep apnea Normocytic anemia Hypertension Diabetes Myasthenia gravis Family History Family History Mother No problems noted. Father No problems noted. Family history of problems with anesthesia: No Surgical History Surgical History Hx laparoscopic cholecystectomy H/O colonoscopy Hx of partial thyroidectomy Hx of cardiac catheterization H/O meniscectomy of right knee H/O spinal fusion History of Problems with Anesthesia: No Social History Social History Household Members: Spouse and Children Housing: House Are you a primary care transitions manager to a significant other at home: No Do you presently have visiting nurse or other home services: No Alcohol intake: never Patient Tobacco Use Status: Never used Tobacco service: No Current occupational status: disabled Meds Allergies Allergy/AdvReac Type Severity Reaction Status Date / Time No Known Allergies Allergy Verified 05/11/23 07:12 [No Known Allergies*] Home Medications Medication Instructions Recorded Confirmed Last Taken Type calcium carbonate 600 mg-vitamin 1 tab PO BID 02/28/22 05/11/23 06/07/22 09:00 History D3 10 mcg (400 unit) tablet azathioprine 50 mg tablet 50 mg PO BID 06/07/22 05/11/23 05/11/23 01:30 History benzonatate 100 mg capsule 100 mg PO TID PRN cough 06/07/22 05/11/23 06/07/22 09:00 History cholecalciferol (vitamin D3) 25 25 mcg PO DAILY 06/07/22 05/11/23 06/07/22 09:00 History mcg (1,000 unit) tablet cyanocobalamin (vitamin B-12) 1,000 mcg PO DAILY 06/07/22 05/11/23 06/07/22 09:00 History 1,000 mcg tablet gabapentin 800 mg tablet 800 mg PO BID 06/07/22 05/11/23 05/11/23 01:30 History metformin 500 mg tablet,extended 500 mg PO BEDTIME 06/07/22 05/11/23 06/06/22 History release 24 hr omeprazole 20 mg capsule,delayed 20 mg PO BID 06/07/22 05/11/23 05/11/23 01:30 History release pyridostigmine bromide 60 mg tablet 60 mg PO BID 06/07/22 05/11/23 06/07/22 09:00 History simethicone 125 mg capsule (Gas 125 mg PO TID PRN bloating 06/07/22 05/11/23 06/07/22 09:00 History Relief Extra Strength) brinzolamide 1 %-brimonidine 0.2 % 1 drp ophthalmic (eye) BID 06/08/22 05/11/23 06/07/22 09:00 History eye drops,suspension (Simbrinza) aspirin 81 mg chewable tablet 81 mg PO DAILY 07/21/22 05/11/23 05/07/23 History Assessment and Plan Final Anesthetic Review Family History of Problems with Anesthesia: No History of Problems with Anesthesia: No
[2023-05-13 16:14] VITALS: BMI 37.6
--- NOTE | 2023-05-15 | ECG_ITS ---
Test Reason : post op ekg changes Blood Pressure : / mmHG Vent. Rate : 061 BPM Atrial Rate : 061 BPM P-R Int : 174 ms QRS Dur : 152 ms QT Int : 446 ms P-R-T Axes : 041 -28 006 degrees QTc Int : 448 ms Normal sinus rhythm Right bundle branch block Abnormal ECG When compared with ECG of 07-JUN-2022 14:37, No significant change was found Referred By: Yuly Valles Electronically Signed By:Ritchie Richardson
[2023-05-15 11:07] VITALS: BMI 38.3
[2023-05-15 11:14] VITALS: BP 123/71; PULSE 73; RESP 16; TEMP 36.3; O2SAT 98
[2023-05-15 11:30] LABS: Glucose, Whole Blood 83 mg/dL (60-115)
[2023-05-15] MEDS: Lactated Ringers 1,000 ML 80 ML IVCONT (11:30)
--- NOTE | 2023-05-15 11:38 | MHC.SHP ---
Pre-Procedural Eval Section A - 24 Hr Update-Section A only Date of Service: 05/15/23 The patient is an INPATIENT: No Changes since office visit: Yes Cold of Flu in the past 2 weeks The patient has been examined within 24 hours of the surgical procedure. The History & Physical has been completed within 30 days and I have reviewed it.: Yes Section B - Complete if H&P > 30 days Chief Complaint: Dysphagia, unspecified Allergies: Allergies Allergy/AdvReac Type Severity Reaction Status Date / Time No Known Allergies Allergy Verified 05/11/23 07:12 [No Known Allergies*] Plan I have reviewed the history and physical and performed a pertinent physical examination on my patient. No changes have occurred unless specified. Time Spent With Patient Time: Total time managing care of this patient today ____ minutes.
--- NOTE | 2023-05-15 11:39 | HO.ANESPROP2 ---
[facility] Active Problems Active Problems: All Active Problems (Updated 05/15/23 @ 11:10 by Karen Villalobos RN) Lipoma of axilla (Acute) Hepatomegaly (Acute) Hyperlipidemia (Acute) Chest pressure (Acute) Coronary atherosclerosis (Acute) Costochondritis (Acute) Cough (Acute) Morbid (severe) obesity due to excess calories (Acute) Biliary colic (Acute) Nonalcoholic steatohepatitis (WILKERSON) (Acute) GABY (obstructive sleep apnea) (Acute) DMII (diabetes mellitus, type 2) (Acute) Intermittent right upper quadrant abdominal pain (Acute) Cholelithiasis (Acute) Subacromial impingement of right shoulder (Acute) Myasthenia gravis (Acute) Hypertension (Acute) Diabetes (Acute) Past Medical History Medical History Lipoma Coronary atherosclerosis Costochondritis Elevated cholesterol WILKERSON (nonalcoholic steatohepatitis) Sleep apnea Normocytic anemia Hypertension Diabetes Myasthenia gravis Functional capacity: independent ambulation Family History Family History Mother No problems noted. Father No problems noted. Family history of problems with anesthesia: No Surgical History Surgical History Hx laparoscopic cholecystectomy H/O colonoscopy Hx of partial thyroidectomy Hx of cardiac catheterization H/O meniscectomy of right knee H/O spinal fusion History of Problems with Anesthesia: No Social History Social History Household Members: Spouse and Children Housing: House Are you a primary director of career services to a significant other at home: No Do you presently have visiting nurse or other home services: No Alcohol intake: never Patient Tobacco Use Status: Never used Tobacco Use of substances other than those prescribed or required for medical reasons: No Are you DNR?: No Advance Directives: No Advance Directives Information Provided: Yes service: No Current occupational status: disabled Meds Allergies Allergy/AdvReac Type Severity Reaction Status Date / Time No Known Allergies Allergy Verified 05/11/23 07:12 [No Known Allergies*] Active Medications: Current Medications Lactated Ringer's (Lr) 1,000 mls @ 80 mls/hr IVCONT .[id number] [facility] Last Admin: 05/15/23 11:30 Dose: 80 mls/hr Home Medications Medication Instructions Recorded Confirmed Last Taken Type calcium carbonate 600 mg-vitamin 1 tab PO BID 02/28/22 05/11/23 06/07/22 09:00 History D3 10 mcg (400 unit) tablet azathioprine 50 mg tablet 50 mg PO BID 06/07/22 05/11/23 05/11/23 01:30 History benzonatate 100 mg capsule 100 mg PO TID PRN cough 06/07/22 05/11/23 06/07/22 09:00 History cholecalciferol (vitamin D3) 25 25 mcg PO DAILY 06/07/22 05/11/23 06/07/22 09:00 History mcg (1,000 unit) tablet cyanocobalamin (vitamin B-12) 1,000 mcg PO DAILY 06/07/22 05/11/23 06/07/22 09:00 History 1,000 mcg tablet gabapentin 800 mg tablet 800 mg PO BID 06/07/22 05/15/23 05/15/23 History metformin 500 mg tablet,extended 500 mg PO BEDTIME 06/07/22 05/11/23 06/06/22 History release 24 hr omeprazole 20 mg capsule,delayed 20 mg PO BID 06/07/22 05/15/23 05/15/23 History release pyridostigmine bromide 60 mg tablet 60 mg PO BID 06/07/22 05/11/23 06/07/22 09:00 History simethicone 125 mg capsule (Gas 125 mg PO TID PRN bloating 06/07/22 05/11/23 06/07/22 09:00 History Relief Extra Strength) brinzolamide 1 %-brimonidine 0.2 % 1 drp ophthalmic (eye) BID 06/08/22 05/11/23 06/07/22 09:00 History eye drops,suspension (Simbrinza) aspirin 81 mg chewable tablet 81 mg PO DAILY 07/21/22 05/11/23 05/07/23 History Exam Height,Weight and Vital Signs: Height 6 ft 1 in Weight 131.542 kg Last Vital Signs Temp 97.3 F 05/15/23 11:14 Pulse 73 05/15/23 11:14 Resp 16 05/15/23 11:14 BP 123/71 05/15/23 11:14 Pulse Ox 98 05/15/23 11:14 O2 Del Method Room Air 05/15/23 11:14 Pertinent Lab Results Pertinent Lab Results: Laboratory Tests 05/15/23 11:26 POC Glucose 83 Airway Mallampati Class: III TM Dist: >3cm Neck ROM: Full Heart: RRR Lungs: CTA Assessment and Plan Assessment Anesthesia Assessment: Anesthesia Plan Discussed Final Anesthetic Review Family History of Problems with Anesthesia: No History of Problems with Anesthesia: No NPO: Yes ASA Class: III Final Preanesthetic Review: Meds/Allgs Chart Reviewed, Consent Obtained/Reviewed and Anes Risks/Benef Reviewed Patient Risk: Intermediate Procedure Risk: Low Anesthetic Plan Anesthetic Plan: MAC: Disposition: Standard PACU
[2023-05-15 12:15] VITALS: BP 111/62; PULSE 75; RESP 16; TEMP 36.3; O2SAT 97
[2023-05-15 12:30] VITALS: BP 127/77; PULSE 62; RESP 15; O2SAT 98
[2023-05-15 12:34] LABS: Glucose, Whole Blood 84 mg/dL (60-115)
--- NOTE | 2023-05-15 12:40 | OP_ITS ---
DATE OF SERVICE: 05/15/2023 SURGEON: Rubén Bruce MD INDICATIONS: Abnormal barium swallow and history of dysphagia. PREOPERATIVE DIAGNOSIS: POSTOPERATIVE DIAGNOSIS: PROCEDURE PERFORMED: Upper endoscopy with balloon dilation and biopsy. ESTIMATED BLOOD LOSS: COMPLICATIONS: ANESTHESIA: Monitored anesthesia care. ASSISTANTS: SPECIMENS: DESCRIPTION OF PROCEDURE: A history and physical was performed. The risks and benefits of the procedure were explained to the patient. Informed consent was obtained. The patient was placed in the left lateral decubitus position. The Olympus video gastroscope was introduced into the esophagus, stomach, and duodenum. Examination was performed. The scope was removed. He tolerated the procedure well and was taken to the recovery area in stable condition. FINDINGS: Esophagus: The esophagus showed no esophagitis. No stricture was identified. The upper esophageal sphincter was normal. The scope easily passed through this. The lower esophageal sphincter also seemed normal. Balloon dilation to 20 mm was performed at the lower esophageal sphincter because of the patient's symptoms and xray findings. There was no evidence of achalasia. There was a small sliding hiatal hernia. Biopsies were obtained from the EG junction. Stomach: The stomach showed no evidence of masses, ulcers, or polyps. Duodenum: The bulb and 2nd portion were normal. IMPRESSION: 1. Dysphagia. 2. Abnormal barium swallow. RECOMMENDATION: Follow up the biopsy results. MD FLORENTINO Bar/ELTONL / [id number] MTDD
[2023-05-15 12:45] VITALS: BP 135/80; PULSE 70; RESP 18; O2SAT 99
--- NOTE | 2023-05-15 12:47 | HO.POSTANES ---
Post Anesthesia Evaluation Post Anesthesia Evaluation Date of Service: 05/15/23 Vital Signs: Vital Signs Temp Pulse Resp BP Pulse Ox O2 Del Method 05/15/23 12:30 62 15 127/77 98 Room Air 05/15/23 12:15 97.4 F 75 16 111/62 97 Room Air 05/15/23 11:14 97.3 F 73 16 123/71 98 Room Air Anesthesia: Monitored Mental Status: Awake Pain Control: Satisfactory Nausea/Vomiting: None Hydration: Adequate Anesthesia-Related Issues: No Anes. Related Issues
[2023-05-15 13:00] VITALS: BP 126/75; PULSE 70; RESP 18; TEMP 36.3; O2SAT 99
== END 2023-05-15 13:20 | disposition home or self-care (01) ==
PROVIDERS: PCP Internal Medicine; Visit Provider Internal Medicine Gastroenterology
PROC: (CPT 43249; principal; 2023-05-15 13:10)
DX: R93.3 Abnormal findings on diagnostic imaging of other parts of digestive tract (principal); R13.10 Dysphagia, unspecified; K20.90 Esophagitis, unspecified without bleeding; K21.9 Gastro-esophageal reflux disease without esophagitis; K44.9 Diaphragmatic hernia without obstruction or gangrene; I10 Essential (primary) hypertension; E11.9 Type 2 diabetes mellitus without complications; G70.00 Myasthenia gravis without (acute) exacerbation; G62.9 Polyneuropathy, unspecified; G47.33 Obstructive sleep apnea (adult) (pediatric); R60.9 Edema, unspecified; Z79.84 Long term (current) use of oral hypoglycemic drugs; Z79.899 Other long term (current) drug therapy; Z90.49 Acquired absence of other specified parts of digestive tract
CPT/HCPCS: 43249; 43239; 82947; 88305; 88313; 93005; C1726; J2704

== ENCOUNTER → 2023-05-15 12:52 | Outpatient (BNV) | payer MEDICARE, MEDICAID, SELFPAY | PROVIDERS: PCP Internal Medicine; Visit Provider Internal Medicine Cardiovascular Disease | DX: R94.31 Abnormal electrocardiogram [ECG] [EKG] (principal) | CPT/HCPCS: 93010 ==

== ENCOUNTER 2023-05-19 08:42 | Outpatient (AMB) | payer MEDICARE, MEDICAID, SELFPAY ==
--- NOTE | 2023-05-19 08:46 | MHC.OFFVIS ---
Intake Vital Signs 05/19/23 08:51 Height 6 ft 1 in Weight 281 lb BMI 37.1 BP 136/68 Blood Pressure Location Lt brachial Position Sitting Pulse 63 Intake Visit Reasons: S/P excision Rt axillary lipoma Intake Note: Patient is seen in office for post op assessment post excision lipoma right axilla. Pt c/o: Op:05/11/23 Allergies No Known Allergies [No Known Allergies*] Allergy (Verified 05/19/23 08:52) Medication List - Last Reconciled 05/19/23 by Sunday Crandall MD aspirin 81 mg PO DAILY atorvastatin 40 mg PO QPM azathioprine 50 mg PO BID benzonatate 100 mg PO TID PRN brinzolamide-brimonidine 1-0.2 % (Simbrinza) 1 drp ophthalmic (eye) BID calcium carbonate-vitamin D3 600 mg-10 mcg (400 unit) 1 tab PO BID cholecalciferol (vitamin D3) 25 mcg PO DAILY cyanocobalamin (vitamin B-12) 1,000 mcg PO DAILY gabapentin 800 mg PO BID irbesartan 75 mg PO QAM metformin ER 500 mg PO BEDTIME omeprazole 20 mg PO BID oxycodone 5 mg PO Q6H PRN pyridostigmine bromide 60 mg PO BID simethicone (Gas Relief Extra Strength) 125 mg PO TID PRN HPI HPI Comments History of Present Illness Details 67-year-old male patient status post excision of a large lipoma of the right axilla. Pathology confirmed a lipoma with a few reactive lymph nodes with no evidence of malignancy. He reports no complaints following the procedure. [facility] Medical History Lipoma Coronary atherosclerosis Costochondritis Elevated cholesterol WILKERSON (nonalcoholic steatohepatitis) Sleep apnea Normocytic anemia Hypertension Diabetes Myasthenia gravis Surgical History S/P excision of lipoma (05/11/23) Hx laparoscopic cholecystectomy H/O colonoscopy Hx of partial thyroidectomy Hx of cardiac catheterization H/O meniscectomy of right knee H/O spinal fusion Family History Mother No problems noted. Father No problems noted. Social History Household Members: Spouse and Children Housing: House Are you a primary customer care representative to a significant other at home: No Do you presently have visiting nurse or other home services: No Alcohol intake: never Patient Tobacco Use Status: Never used Tobacco service: No Current occupational status: disabled Physical Exam Chest Other: Well-healed incision in the right axilla with a small amount of swelling possibly a small seroma. There is no tenderness to palpation. Chest/axillae images: 1. Assessment & Plan Assessment & Plan (1) Lipoma of axilla: Code(s): D17.20 - Benign lipomatous neoplasm of skin and subcutaneous tissue of unspecified limb Qualifiers: Laterality: right Qualified Code(s): D17.21 - Benign lipomatous neoplasm of skin and subcutaneous tissue of right arm Plan Patient returns 1 week following excision of a lipoma of the right axilla. He tolerated the procedure well the pathology confirmed a lipoma. His wounds are clean, dry, and intact without redness or discharge. He should follow up as needed. Coding Level of Care Code Global (42863) Diagnoses Lipoma of right axilla D17.21 Laterality: right
[2023-05-19 08:51] VITALS: BP 136/68; PULSE 63; BMI 37.1
== END 2023-05-19 08:55 | disposition home or self-care (01) ==
PROVIDERS: PCP Internal Medicine; Visit Provider Surgery
DX: D17.21 Benign lipomatous neoplasm of skin and subcutaneous tissue of right arm (principal)
CPT/HCPCS: 99024

== ENCOUNTER → 2023-05-19 08:42 | Outpatient (BNVA) | payer MEDICARE, MEDICAID, SELFPAY | PROVIDERS: PCP Internal Medicine; Visit Provider Surgery | DX: D17.21 Benign lipomatous neoplasm of skin and subcutaneous tissue of right arm (principal) | CPT/HCPCS: 99212 ==

== ENCOUNTER 2023-06-04 10:03 | Outpatient (AMB) | payer MEDICARE, MEDICAID, SELFPAY ==
[2023-06-04 10:06] VITALS: BP 122/77; PULSE 102; O2SAT 96; BMI 36.8
--- NOTE | 2023-06-04 10:06 | MHC.OFFVIS ---
Intake Vital Signs 06/04/23 10:06 Height 6 ft 1 in Weight 279 lb BMI 36.8 BP 122/77 Blood Pressure Location Rt brachial Position Sitting Pulse 102 H Pulse Source Doppler Pulse Oximetry (%) 96 Oxygen Delivery Method Room Air Intake Visit Reasons: Cough Allergies No Known Allergies [No Known Allergies*] Allergy (Verified 06/04/23 10:09) HPI Cough HPI Details 67-year-old gentleman with underlying myasthenia gravis, recent MBS showing food refluxing in esophagus, ?hiatal hernia referred for evaluation of nonproductive cough ongoing for approximately 5 years with symptoms worsened morning but no significant changes with body position. Currently on PPI and H2 katelin. Family history significant for asthma in his mother. Denies exposure to industrial dusts. No relief with albuterol MDI. [facility] Medical History Lipoma Coronary atherosclerosis Costochondritis Elevated cholesterol WILKERSON (nonalcoholic steatohepatitis) Sleep apnea Normocytic anemia Hypertension Diabetes Myasthenia gravis Surgical History S/P excision of lipoma (05/11/23) Hx laparoscopic cholecystectomy H/O colonoscopy Hx of partial thyroidectomy Hx of cardiac catheterization H/O meniscectomy of right knee H/O spinal fusion Family History Mother No problems noted. Father No problems noted. Social History Household Members: Spouse and Children Housing: House Are you a primary point of care technician to a significant other at home: No Do you presently have visiting nurse or other home services: No Alcohol intake: never Patient Tobacco Use Status: Never used Tobacco service: No Current occupational status: disabled Review of Systems Const Denies daytime sleepiness, Denies excessive sweating, Denies fatigue, Denies fever(s), Denies lethargy, Denies malaise, Denies night sweats, Denies snoring and Denies weight loss Eyes Denies blurry vision and Denies itchy eyes ENT Denies nasal congestion, Denies post nasal drip, Denies sinus pain, Denies sinus pressure and Denies other ( Thrush) Card Denies chest pain, Denies pedal edema, Denies dyspnea, Denies orthopnea and Denies paroxysmal nocturnal dyspnea Resp Reports cough, Denies hemoptysis, Denies excessive phlegm production, Denies dyspnea, Denies snoring and Denies wheezing GI Denies abdominal pain and Denies heartburn Musc Denies myalgias, Denies arthralgias and Denies joint swelling Skin/Breast Denies rash Neuro Denies memory loss and Denies seizure-like activity Psych Denies abnormal sleep pattern, Denies anxiety and Denies memory loss Endo Denies excessive sweating, Denies fatigue and Denies heat intolerance Jaquan/Lymph Denies easy bruising Aller/Immun Denies itchy eyes, Denies seasonal rhinorrhea and Denies wheezing Physical Exam Vital Signs: Last Vital Signs Pulse 102 H 06/04/23 10:06 BP 122/77 06/04/23 10:06 Pulse Ox 96 06/04/23 10:06 Oxygen Delivery Method Room Air 06/04/23 10:06 BMI result Body Mass Index 36.8 Const General: no acute distress and alert Nutritional Appearance: obese Orientation/consciousness: Other orientation findings ( oriented) HEENT Head: Yes atraumatic Eyes General: appearance normal, both eyes and all related structures Sclerae: sclerae normal EOM: EOMs intact bilaterally Neck Neck: Yes supple Lymphatic: no lymphadenopathy noted Resp Effort & Inspection: normal respiratory effort and no use of accessory muscles Auscultation: clear to auscultation bilaterally Cardio Rate: regular rate Rhythm: regular rhythm Heart sounds: no gallops, no murmurs and no rubs Skin General skin exam: other ( warm) Extrem General: No clubbing, No cyanosis and No edema Assessment & Plan Assessment & Plan (1) Pulmonary aspiration: Code(s): T17.900A - Unspecified foreign body in respiratory tract, part unspecified causing asphyxiation, initial encounter (2) Cough: Code(s): R05.9 - Cough, unspecified (3) Hiatal hernia: Code(s): K44.9 - Diaphragmatic hernia without obstruction or gangrene Plan Unclear etiology, may have reflux, cough variant asthma, hiatal hernia as components. Will start on empiric Breo. Will check CT chest and pulmonary function test. Orders: Orders CT chest wo IV con Today K44.9 - Diaphragmatic hernia without obstruction or gangrene, R05.9 - Cough, unspecified, T17.900A - Unspecified foreign body in respiratory tract, part unspecified causing asphyxiation, initial encounter PFT pulmonary function test Today R05.9 - Cough, unspecified Medications: New fluticasone furoate-vilanterol 200-25 mcg/dose (Breo Ellipta) 1 inh inhalation DAILY 1 ea 6RF 30 days R05.9 - Cough, unspecified Coding Level of Care Code New Pt Level 4 (47487) Diagnoses Pulmonary aspiration T17.900A Cough R05.9 Hiatal hernia K44.9
== END 2023-06-04 10:26 | disposition home or self-care (01) ==
PROVIDERS: PCP Internal Medicine; Visit Provider Internal Medicine Pulmonary Disease
DX: T17.900A Unspecified foreign body in respiratory tract, part unspecified causing asphyxiation, initial encounter (principal); R05.9 Cough, unspecified; K44.9 Diaphragmatic hernia without obstruction or gangrene
CPT/HCPCS: 99204; 99214

== ENCOUNTER → 2023-06-04 10:03 | Outpatient (BNVA) | payer MEDICARE, MEDICAID, SELFPAY | PROVIDERS: PCP Internal Medicine; Visit Provider Internal Medicine Pulmonary Disease | DX: T17.900A Unspecified foreign body in respiratory tract, part unspecified causing asphyxiation, initial encounter (principal); R05.9 Cough, unspecified; K44.9 Diaphragmatic hernia without obstruction or gangrene | CPT/HCPCS: 99202 ==

== ENCOUNTER 2023-07-15 07:19 | Outpatient (REF) | payer MEDICARE, MEDICAID, SELFPAY ==
--- NOTE | ~2023-07-15 | CT_ITS ---
EXAMINATION: CT CHEST WITHOUT CONTRAST CLINICAL INFORMATION: Cough, hiatal hernia, pulmonary aspiration. COMPARISON: CT chest 06/07/2022. TECHNIQUE: Multidetector volumetric CT imaging of the chest was done. Axial MIP volume rendering provided. Sagittal and coronal reformatted images were obtained. This CT examination was performed using dose optimization techniques as appropriate, variously including the following: *Automated exposure control *Adjustment of mA and/or kV according to patient size (this includes techniques or standardized protocols for targeted exams where dose is matched to indication/reason for exam; i.e. extremities or head) *Use of iterative reconstruction technique DLP: 238 mGy-cm FINDINGS: LUNGS: No focal airspace opacity. No significant interstitial thickening. Central airways are patent. No suspicious pulmonary nodule or mass. MEDIASTINUM: Normal heart size. No pericardial effusion. No mediastinal lymphadenopathy. 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 CORONARY ARTERY CALCIFICATION: Multivessel coronary artery calcifications are present. PLEURA: No pleural effusion or pneumothorax. AXILLA: New indeterminate subcutaneous fat stranding/amorphous soft tissue thickening in the right axillary region measuring 4.6 cm (image 13 series 3). Stable trace symmetric gynecomastia. UPPER ABDOMEN: Cholecystectomy. Small hiatal hernia. OSSEOUS STRUCTURES: No acute or aggressive appearing osseous findings. CT/CT chest wo IV con IMPRESSION: 1. No evidence of aspiration pneumonia. 2. New indeterminate subcutaneous fat stranding/amorphous soft tissue thickening in the right axillary region. Correlate with physical examination.
== END 2023-07-15 07:20 | disposition home or self-care (01) ==
LOC: HO.CT 07:19
PROVIDERS: PCP Internal Medicine; Visit Provider Internal Medicine Pulmonary Disease
DX: R05.9 Cough, unspecified (principal); K44.9 Diaphragmatic hernia without obstruction or gangrene; T17.900A Unspecified foreign body in respiratory tract, part unspecified causing asphyxiation, initial encounter
CPT/HCPCS: 71250

== ENCOUNTER 2023-07-17 10:30 | Outpatient (REF) | payer MEDICARE, SELFPAY ==
[2023-07-17 10:06] VITALS: PULSE 60; RESP 16; O2SAT 99
--- NOTE | 2023-07-17 16:37 | PFT_ITS ---
Flows: FEV1: 102 % of predicted at 3.77 L FVC: 97 % of predicted at 4.75 L FEV1/FVC: 79 % Bronchodilator response: Present in small to medium airways only Volumes: Total lung capacity: 88 % of predicted at 6.93 L Residual volume: 82 % of predicted at 2.18 L Slow vital capacity: 90 % of predicted at 4.75 L Expiratory reserve volume: 136 % of predicted at 2.00 L Diffusion capacity: Normal Impression: No obstructive or restrictive ventilatory defect. Bronchodilator response present in small to medium airways only. MTDD
== END 2023-07-17 10:31 | disposition home or self-care (01) ==
LOC: HO.RESP 10:30
PROVIDERS: PCP Internal Medicine; Visit Provider Internal Medicine Pulmonary Disease
DX: R05.9 Cough, unspecified (principal)
CPT/HCPCS: 94010; 94640; 94727; 94729

== ENCOUNTER → 2023-07-17 16:37 | Outpatient (BNV) | payer MEDICARE, SELFPAY | PROVIDERS: PCP Internal Medicine; Visit Provider Internal Medicine Pulmonary Disease | DX: R05.9 Cough, unspecified (principal) | CPT/HCPCS: 94060; 94727; 94729 ==

== ENCOUNTER 2023-07-21 09:10 | Outpatient (AMB) | payer MEDICARE, MEDICAID, SELFPAY ==
[2023-07-21 09:22] VITALS: BP 122/74; PULSE 66; O2SAT 98; BMI 37.1
--- NOTE | 2023-07-21 09:22 | MHC.OFFVIS ---
Vital Signs 07/21/23 09:22 Height 6 ft 1 in Weight 281 lb 1.43 oz BMI 37.1 BP 122/74 Blood Pressure Location Rt brachial Position Sitting Pulse 66 Pulse Source Doppler Pulse Oximetry (%) 98 Oxygen Delivery Method Room Air Intake Visit Reasons: Cough Allergies No Known Allergies [No Known Allergies*] Allergy (Verified 07/21/23 09:29) HPI HPI Cough: Details: 67-year-old gentleman with underlying myasthenia gravis, recent MBS showing food refluxing in esophagus, ?hiatal hernia referred for evaluation of nonproductive cough ongoing for approximately 5 years with symptoms worsened morning but no significant changes with body position. Currently on PPI and H2 katelin. Family history significant for asthma in his mother. Denies exposure to industrial dusts. No relief with albuterol MDI. After the last office visit patient had essentially normal pulmonary function test. His CT chest official read is pending, but it does show underlying hiatal hernia. [facility] Medical History Lipoma Coronary atherosclerosis Costochondritis Elevated cholesterol WILKERSON (nonalcoholic steatohepatitis) Sleep apnea Normocytic anemia Hypertension Diabetes Myasthenia gravis Surgical History S/P excision of lipoma (05/11/23) Hx laparoscopic cholecystectomy H/O colonoscopy Hx of partial thyroidectomy Hx of cardiac catheterization H/O meniscectomy of right knee H/O spinal fusion Family History Mother No problems noted. Father No problems noted. Social History Household Members: Spouse and Children Housing: House Are you a primary critical care unit manager to a significant other at home: No Do you presently have visiting nurse or other home services: No Alcohol intake: never Patient Tobacco Use Status: Never used Tobacco service: No Current occupational status: disabled Review of Systems Const Denies daytime sleepiness, Denies excessive sweating, Denies fatigue, Denies fever(s), Denies lethargy, Denies malaise, Denies night sweats, Denies snoring and Denies weight loss Eyes Denies blurry vision and Denies itchy eyes ENT Denies nasal congestion, Denies post nasal drip, Denies sinus pain, Denies sinus pressure and Denies other ( Thrush) Card Denies chest pain, Denies pedal edema, Denies dyspnea, Denies orthopnea and Denies paroxysmal nocturnal dyspnea Resp Reports cough, Denies hemoptysis, Denies excessive phlegm production, Denies dyspnea, Denies snoring and Denies wheezing GI Denies abdominal pain and Denies heartburn Musc Denies myalgias, Denies arthralgias and Denies joint swelling Skin/Breast Denies rash Neuro Denies memory loss and Denies seizure-like activity Psych Denies abnormal sleep pattern, Denies anxiety and Denies memory loss Endo Denies excessive sweating, Denies fatigue and Denies heat intolerance Jaquan/Lymph Denies easy bruising Aller/Immun Denies itchy eyes, Denies seasonal rhinorrhea and Denies wheezing Physical Exam Vital Signs: Last Vital Signs Pulse 66 07/21/23 09:22 BP 122/74 07/21/23 09:22 Pulse Ox 98 07/21/23 09:22 Oxygen Delivery Method Room Air 07/21/23 09:22 BMI result Body Mass Index 37.1 Const General: no acute distress and alert Nutritional Appearance: obese Orientation/consciousness: Other orientation findings ( oriented) HEENT Head: Yes atraumatic Eyes General: appearance normal, both eyes and all related structures Sclerae: sclerae normal EOM: EOMs intact bilaterally Neck Neck: Yes supple Lymphatic: no lymphadenopathy noted Resp Effort & Inspection: normal respiratory effort and no use of accessory muscles Auscultation: clear to auscultation bilaterally Cardio Rate: regular rate Rhythm: regular rhythm Heart sounds: no gallops, no murmurs and no rubs Skin General skin exam: other ( warm) Extrem General: No clubbing, No cyanosis and No edema Assessment & Plan Assessment & Plan (1) Cough: Code(s): R05.9 - Cough, unspecified Category: Medical (2) Hiatal hernia: Code(s): K44.9 - Diaphragmatic hernia without obstruction or gangrene Category: Medical Plan Appears to have significant reflux of food and sudden acid reflux secondary to underlying hiatal hernia. Will increase omeprazole to 40 mg twice a day for an empiric trial. Medications: New omeprazole 40 mg PO BID 30 days 60 caps 3RF Coding Level of Care Code Est Pt Level 4 (98029) Diagnoses Cough R05.9 Hiatal hernia K44.9
== END 2023-07-21 09:41 | disposition home or self-care (01) ==
PROVIDERS: PCP Internal Medicine; Visit Provider Internal Medicine Pulmonary Disease
DX: R05.9 Cough, unspecified (principal); K44.9 Diaphragmatic hernia without obstruction or gangrene
CPT/HCPCS: 99214

== ENCOUNTER → 2023-07-21 09:10 | Outpatient (BNVA) | payer MEDICARE, MEDICAID, SELFPAY | PROVIDERS: PCP Internal Medicine; Visit Provider Internal Medicine Pulmonary Disease | DX: R05.9 Cough, unspecified (principal); K44.9 Diaphragmatic hernia without obstruction or gangrene | CPT/HCPCS: 99212 ==

== ENCOUNTER 2023-08-27 10:31 | Outpatient (REF) | payer MEDICARE, MEDICAID, SELFPAY ==
[2023-08-27 15:28] LABS: TSH reflex Free T4 1.06 uIU/mL (0.32-4.0)
== END 2023-08-27 10:32 | disposition home or self-care (01) ==
LOC: HO.CHCLDS 10:31
PROVIDERS: Visit Provider Internal Medicine
DX: E03.9 Hypothyroidism, unspecified (principal)
CPT/HCPCS: 36415; 84443

== ENCOUNTER 2023-09-08 09:19 | Outpatient (REF) | payer MEDICARE, MEDICAID, SELFPAY ==
--- NOTE | ~2023-09-08 | XR_ITS ---
EXAMINATION: XR CERVICAL SPINE CLINICAL INFORMATION: Neck pain. COMPARISON: None available. TECHNIQUE: Frontal, odontoid, lateral and swimmer's views of the cervical spine were obtained. FINDINGS: There is bony demineralization. There is a mild cervicothoracic levoscoliosis. At C2-C3, there is moderate disc space narrowing. 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 The remaining disc spaces are relatively well-maintained. No acute fracture or spondylolisthesis is seen. There is multi-level cervical endplate arthropathy. The posterior elements are intact. The dens is intact. No prevertebral soft tissue swelling is seen. XR/XR cervical spine 3V IMPRESSION: 1. There is moderate degenerative disc disease at C2-C3. 2. 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 3. There is multi-level marked cervical endplate arthropathy. 4. There is a mild cervicothoracic levoscoliosis.
== END 2023-09-08 09:20 | disposition home or self-care (01) ==
LOC: HO.XRAY 09:19
PROVIDERS: PCP Internal Medicine; Visit Provider Internal Medicine
DX: M54.2 Cervicalgia (principal)
CPT/HCPCS: 72040

== ENCOUNTER 2023-11-10 09:56 | Outpatient (REF) | payer MEDICARE, MEDICAID, SELFPAY ==
[2023-11-10 14:38] LABS: Appearance Urine Cloudy; Color Urine Yellow; Glucose Urine UA Negative (Negative); Leukocyte Esterase Urine Small (1+) (Negative); Nitrite Urine Negative (Negative); PH 6.5 (5.0-9.0); Specific Gravity - Urine 1.025 (1.005-1.025); UMIC TRIGGER UACC YES; Urine Blood Negative (Negative); Urine Ketones Negative (Negative); Urine Protein Negative (Neg-Trace)
[2023-11-10 14:42] LABS: Bacteria Urine 4+ (None Seen); Hyaline Casts Urine 0-2 /LPF (0-2); RBC Urine 0-2 /HPF (0-2); Squamous Epithelial Cell Urine 0-2 /HPF (0-2); UACC Culture Trigger YES
[2023-11-10 18:13] LABS: Alanine Aminotransferase 15 U/L (0-40); Albumin Level 4.1 g/dL (3.5-5.0); Alkaline Phosphatase 71 U/L (39-117); Anion Gap 11 (12-20); Aspartate Amino Transferase 15 U/L (5-37); Bilirubin Total 0.5 mg/dL (0.0-1.0); Blood Urea Nitrogen 17 mg/dL (9-16); Calcium 9.6 mg/dL (8.4-10.2); Carbon Dioxide 25 mmol/L (22-29); Chloride 108 mmol/L (96-108); Estimated Glomerular Filt Rate > 60; Glucose Random 85 mg/dL (60-115); Potassium 4.1 mmol/L (3.3-5.1); Sodium 140 mmol/L (135-145); Total Protein 7.4 g/dL (6.5-8.0)
== END 2023-11-10 09:57 | disposition home or self-care (01) ==
LOC: HO.CHCLDS 09:56
PROVIDERS: Visit Provider Internal Medicine
DX: R60.0 Localized edema (principal)
CPT/HCPCS: 36415; 80053; 81001; 87086; 87088; 87186

== ENCOUNTER 2023-11-12 12:00 | Outpatient (REF) | payer MEDICARE, MEDICAID, SELFPAY ==
[2023-11-15 05:39] LABS: TS Negative Control Passed; TS Panel A 0; TS Panel B 0; TS Positive Control Passed; TSpotTB Negative (Negative)
== END 2023-11-12 12:01 | disposition home or self-care (01) ==
LOC: HO.CHCLDS 12:00
PROVIDERS: Visit Provider Internal Medicine
DX: Z11.1 Encounter for screening for respiratory tuberculosis (principal)
CPT/HCPCS: 36415; 86481

== ENCOUNTER 2023-12-31 16:37 | Outpatient (REF) | payer MEDICARE, MEDICAID, SELFPAY | END 2023-12-31 16:38 | disposition home or self-care (01) | LOC: HO.LNP 16:37 | PROVIDERS: Visit Provider Family Medicine | DX: R35.0 Frequency of micturition (principal) | CPT/HCPCS: 87086; 87088; 87186 ==

== ENCOUNTER 2024-04-11 10:06 | Outpatient (REF) | payer MEDICAID, SELFPAY ==
--- OUTSIDE RECORDS SUMMARY | 2024-04-11 11:17 | XMS_ITS | Encounter Summary ---
Author Organization [employer] Address [address] [place] [address] 7 [place] [address] Care Team Providers Care Price Changer Name Role Phone Christopher Wang MD Primary Care Provider [phone] Reason for Referral * Consultation (Routine) - Closed Specialty Diagnoses / Procedures Referred By Contac t Referred To Contact Audiology Diagnoses Subjective hearing loss Terri Medellin MD [address] [place] [address] Phone: tel: fax: [facility] [address] 1[address] Floor [place], [place] Phone: tel: fax: Referral ID Status Reason Start Date Expiration Date V isits Requested Visits Authorized [id number] Closed Specialty Services Required 11/12/2023 11/11/2024 1 1 Encounter Details Date Type Department Care Team (Late st Contact Info) Description 11/12/2023 Orders Only [facility] [address] [place], [place] [phone] Terri Medellin MD [address] [place], [place] [phone] Subjective hearing loss (Primary Dx) Social History Tobacco Use Types Packs/Day Years Used Date Smoking Tobacco: Never Passive Smoke Exposure: Never Smokeless Tobacco: Never Alcohol Use Standard Drinks/Week Comments Never 0 (1 standard drink = 0.6 oz pur e alcohol) Depression Answer Date Recorded Patient Health Questionnaire-9 Score 0 03/04/2022 Housing Stability Answer Date Recorded What is your housing situation today? I have [place]and [place] 12/04/[address] you li ve. Do you have problems with any of the following? None of the above 12/04/2022 Food Insecurity Answer Date Recorded Within the past 12 months, y ou worried that your food would run out before you got money to buy more: Never True 12/04/2022 Within the past 12 months,th e food you bought just didn't last and you didn't have enough money to get more: Never True Transportation Answer Date Recorded In the past 12 months, has l ack of transportation kept you from medical appts, meetings, work or from getting things needed for daily living? No 12/04/2022 Utilities Answer Date Recorded In the past 12 months, has t he electric, gas, oil or water company threatened to shut off services in your home? No 12/04/2022 Depression Answer Date Recorded Patient Health Questionnaire-2 Score 0 03/04/2022 Sex and Gender Information Value Date Recorded Sex Assigned at Male 12/16/2021 10:15 AM EDT Legal Sex Male 10:15 AM EDT Gender Identity Male 12/16/2021 10:15 AM EDT Sexual Orientation Straight 12/16/2021 10 :15 AM EDT documented as of this encounter Plan of Treatment Upcoming Encounters Date Type Department Care Team (Late st Contact Info) Description 04/20/2024 8:00 AM EST Office Visit [facility] [address] [place] [address] Janay Veliz DMD Scheduled Referrals Name Type Priority Associated Diagnoses Orde r Schedule Referral to Audiology Outpatient Referral Routine Subjective hearing loss Expected: 11/12/2023 (Approximate), Expires: 11/11/2024 documented as of this encounter Visit Diagnoses Diagnosis Subjective hearing loss- Primary documented in this encounter Additional Health Concerns Assessment Noted Time PHQ-9 Depression Total Score: 0 03/04/19 23 9:18 AM EST documented as of this encounter Care Teams Price Changer Relationship Specialty Start Date End Date Christopher Wang MD [address] [place] [address] PCP - General Internal Medicine 08/23/19 documented as of this encounter
--- OUTSIDE RECORDS SUMMARY | 2024-04-11 11:17 | XMS_ITS | Encounter Summary ---
Author Organization [employer] Address [address] [facility] 7 [place] [address] Care Team Providers Care Supply Tech Name Role Phone Christopher Wang MD Primary Care Provider [phone] Encounter Details Date Type Department Care Team (Latest Contact Info) Description 03/23/2024 Travel Social History Tobacco Use Types Packs/Day Years Used Date Smoking Tobacco: Never Passive Smoke Exposure: Never Smokeless Tobacco: Never Alcohol Use Standard Drinks/Week Comments Never 0 (1 standard drink = 0.6 oz pur e alcohol) Alcohol Answer Date Recorded Q1: How often do you have a drink containing alc ohol? 1 12/24/2023 Q2: How many drinks containi ng alcohol do you have on a typical day when you are drinking? 0 12/24/2023 Q3: How often do you have six or more drinks on one occasion? 1 12/24/2023 Depression Answer Date Recorded Patient Health Questionnaire-9 Score 1 12/24/2023 Patient Health Questionnaire-9 Score 1 12/24/2023 Last PHQ-9: Questionnaire Data Not on file 1 02/22/2023 Housing Stability Answer Date Recorded What is your housing situation today? I have [place]and [place] 12/17/[address] you li ve. Do you have problems with any of the following? None of the above 12/17/2023 Food Insecurity Answer Date Recorded Within the past 12 months, y ou worried that your food would run out before you got money to buy more: Never True 12/17/2023 Within the past 12 months,th e food you bought just didn't last and you didn't have enough money to get more: Never True Transportation Answer Date Recorded In the past 12 months, has l ack of transportation kept you from medical appts, meetings, work or from getting things needed for daily living? No 12/17/2023 Utilities Answer Date Recorded In the past 12 months, has t he electric, gas, oil or water company threatened to shut off services in your home? No 12/17/2023 Depression Answer Date Recorded Patient Health Questionnaire-2 Score 0 12/24/2023 Internet Access Answer Date Recorded Internet Access Q1 Yes 12/17/2023 Internet Access Q2 Not on file 12/17/2023 Sex and Gender Information Value Date Recorded Sex Assigned at Male 12/16/2021 10:15 AM EDT Legal Sex Male 10:15 AM EDT Gender Identity Male 12/16/2021 10:15 AM EDT Sexual Orientation Straight 12/16/2021 10 :15 AM EDT documented as of this encounter Plan of Treatment Upcoming Encounters Date Type Department Care Team ([facility] st Contact Info) Description 04/20/2024 8:00 AM EST Office Visit [facility] [address] [place] [address] Janay Veliz DMD documented as of this encounter Visit Diagnoses Not on filedocumented in this encounter Additional Health Concerns Assessment Noted Time PHQ-9 Depression Total Score: 1 12/24/19 24 1:52 PM EST documented as of this encounter Care Teams Supply Tech Relationship Specialty Start Date End Date Christopher Wang MD [address] [place] [address] PCP - General Internal Medicine 08/23/19 documented as of this encounter
--- OUTSIDE RECORDS SUMMARY | 2024-04-11 11:17 | XMS_ITS | Encounter Summary ---
Author Organization [employer] Address [address] [place] [address] Care Team Providers Care Nail Puller Name Role Phone Christopher Wang MD Primary Care Provider [phone] Reason for Visit * Reason Onset Date Comments Med Refill 10/22/2023 Encounter Details Date Type Department Care Team (Late st Contact Info) Description 10/22/2023 Telephone [facility] [address] [place] [address] Christopher Wang MD [address] [place] [address] Med Refill Social History Tobacco Use Types Packs/Day Years Used Date Smoking Tobacco: Never Smokeless Tobacco: Never Alcohol Use Standard [...] AM EDT documented as of this encounter Miscellaneous Notes * Telephone Encounter - Christopher Wang MD - 10/23/2023 10:11 AM EDT Thank you. A refill was sent for the patient. * Telephone Encounter - Junie Boyd LPN - 10/22/2023 11:21 AM EDT Medication is not pended as unsure if prescribed for short term.Please review * Telephone Encounter - Sumeet Walsh - 10/22/2023 11:18 AM EDT TC from pt requesting medication refill. Medications needing refill : metoclopramide (Reglan) 10 MG tablet To be sent to: [facility] - [place], [place] - [address] documented in this encounter Plan of Treatment Upcoming Encounters Date Type Department Care Team (Late st Contact Info) Description 04/20/2024 8:00 AM EST Office Visit [facility] ADULT D[facility]AL [address] [place] [address] Janay Veliz DMD documented as of this encounter Visit Diagnoses Not on filedocumented in this encounter Additional Health Concerns Assessment Noted Time PHQ-9 Depression Total Score: 0 03/04/19 23 9:18 AM EST documented as of this encounter Care Teams Nail Puller Relationship Specialty Start Date End Date Christopher Wang MD [address] [place] [id number] PCP - General Internal Medicine 08/23/19 documented as of this encounter
--- OUTSIDE RECORDS SUMMARY | 2024-04-11 11:17 | XMS_ITS | Encounter Summary ---
Author Organization [employer] Address [address] [place] [address] 7 [place] [address] Care Team Providers Care Laboratory Mechanical Technician Name Role Phone Christopher Wang MD Primary Care Provider [phone]- [phone] Reason for Visit * Reason Comments Med Refill Encounter Details Date Type Department Care Team ([facility] st Contact Info) Description 11/26/2023 Refill [facility]S [address] [place] [address] Christopher Wang MD [address] [place] [address] Bloating symptom Social History Tobacco Use Types Packs/Day Years [...] 8:00 AM EST Office Visit [facility] ADULT DENTAL [address] [place] [address] Janay Veliz DMD documented as of this encounter Visit Diagnoses Diagnosis Bloating symptom Flatulence, eructation, and gas pain documented in this encounter Additional Health Concerns Assessment Noted Time PHQ-9 Depression Total Score: 0 03/04/19 23 9:18 AM EST documented as of this encounter Care Teams Laboratory Mechanical Technician Relationship Specialty Start Date End Date Christopher Wang MD [address] [place] [address] PCP - General Internal Medicine 08/23/19 documented as of this encounter
--- OUTSIDE RECORDS SUMMARY | 2024-04-11 11:17 | XMS_ITS | Encounter Summary ---
Author Organization [employer] Address [address] [place] [address] 7 [place] [address] Care Team Providers Care Sports Fitness And Wellness Director Name Role Phone Christopher Wang MD Primary Care Provider [phone]- [phone] Reason for Visit * Reason Comments Diabetes Hypertension Encounter Details Date Type Department Care Team (Latest Contact Info) Description 04/11/2024 9:15 AM EST Office Visit [facility] CH[facility] MED & PEDS [address] [place], [place] [phone] Christopher Wang MD [address] [place] [address] Primary hypertension (Primary Dx); Acquired hypothyroidism; Type 2 diabetes mellitus without complication, without long-term current use of insulin (CMS/HCC); Hoarseness of voice; Chronic cough; Papular lichenification Social History Tobacco Use Types Packs/Day Years [...] AM EDT documented as of this encounter Last Filed Vital Signs Vital Sign Reading Time Taken Comments Blood Pressure 138/86 04/11/2024 9:32 AM EST Pulse 64 04/11/2024 9:32 AM EST Temperature 36.4 ??C (97.6 ??F) 04/11/2024 9:32 AM ES T Respiratory Rate 20 04/11/2024 9:32 AM EST Oxygen Saturation 97% 04/11/2024 9:32 AM EST Inhaled Oxygen Concentration - - Weight 135 kg (298 lb) 04/11/2024 9:32 AM EST Height 185.4 cm (6' 1 ) 04/11/2024 9:32 AM EST Body Mass Index 39.32 04/11/2024 9:32 AM EST documented in this encounter Plan of Treatment Upcoming Encounters Date Type Department Care Team (Late st Contact Info) Description 04/20/2024 8:00 AM EST Office Visit [facility] ADULT DENTAL [address] [place] [address] Janay Veliz DMD Scheduled Orders Name Type Priority Associated Diagnoses Orde r Schedule Lipid Panel, Standard Lab Routine Type 2 diabetes mellitus without complication, without long-term current use of insulin ([facility]) Expected: 04/11/2024 (Approximate), Expires: 04/11/2025 Albumin, Random Urine W/Creatinine Lab Routine Type 2 diabetes mellitus without complication, without long-term current use of insulin (CMS/HCC) Expected: 04/11/2024 (Approximate), Expires: 04/11/2025 documented as of this encounter Procedures Procedure Name Priority Date/Time Associated Diagnosis Comments POCT GLUCOSE Routine 04/11/2024 10:01 AM EST Type 2 diabetes mellitus without complication, without long-term current use of insulin ([facility]) POCT GLYCATED HEMOGLOBIN, TOTAL Routine 04/11/2024 9:59 AM EST Type 2 diabetes mellitus without complication, without long-term current use of insulin ([facility]) documented in this encounter Results * POCT Glucose (04/11/2024 10:01 AM EST) Glucose Blood, POC 120 60 - 200 mg/dL [employer] Media Lot # [id number] Comment:random Lot# Expiration Date [id number] Blood Capillary blood specimen / Unknown 04/11/2024 10:01 AM EST Christopher Wang MD POINT OF CARE TEST ENTER/ED IT ORDERABLES Final Result * POCT HGB A1C (04/11/2024 9:59 AM EST) Hemoglobin A1C 5.6 4.0 - 6.0 % QC Media Lot # [id number] Lot# Expiration Date [id number] Blood 04/11/2024 9:59 AM EST Christopher Wang MD POINT OF CARE TEST ENTER/ED IT ORDERABLES Final Result documented in this encounter Visit Diagnoses Diagnosis Primary hypertension- Primary Unspecified essential hypertension Acquired hypothyroidism Unspecified hypothyroidism Type 2 diabetes mellitus without complication, without long-term current use of insulin ([facility]) Hoarseness of voice Dysphonia Chronic cough Cough Papular lichenification documented in this encounter Additional Health Concerns Assessment Noted Time PHQ-9 Depression Total Score: 1 12/24/19 24 1:52 PM EST documented as of this encounter Care Teams Sports Fitness And Wellness Director Relationship Specialty Start Date End Date Christopher Wang MD [address] [place] [phone] PCP - General Internal Medicine 08/23/19 documented as of this encounter
--- OUTSIDE RECORDS SUMMARY | 2024-04-11 11:17 | XMS_ITS | Encounter Summary ---
Author Organization [employer] Address [address] [facility] 7 [place] [address] Care Team Providers Care Auto Locator Name Role Phone Christopher Wang MD Primary Care Provider [phone]- [phone] Reason for Visit * Reason Onset Date Comments Appointment 04/14/2022 Encounter Details Date Type Department Care Team (Late st Contact Info) Description 04/14/2022 Telephone [facility] ADULT DENTAL [address] [place] [address] Ronal Andrade, DMD [address] [place] [address] Appointment Social History Tobacco Use Types Packs/Day Years Used Date Smoking Tobacco: Never Smokeless Tobacco: Never Alcohol Use Standard Drinks/Week Comments Never 0 (1 standard drink = 0.6 oz pur e alcohol) Depression Answer Date Recorded Patient Health Questionnaire-9 Score 0 03/04/2022 Depression Answer Date Recorded Patient Health Questionnaire-2 Score 0 03/04/2022 Sex and Gender Information Value Date Recorded Sex Assigned at Male 12/16/2021 10:15 AM EDT Legal Sex Male 10:15 AM EDT Gender Identity Male 12/16/2021 10:15 AM EDT Sexual Orientation Straight 12/16/2021 10 :15 AM EDT documented as of this encounter Miscellaneous Notes * Telephone Encounter - Belinda Hermosillo - 04/14/2022 9:10 AM EST Patient states that he had to cancel appt with Dr. Bro for impression due to weather but that he also needs ext with oral surgery prior to impression for partials. documented in this encounter Plan of Treatment Upcoming Encounters Date Type Department Care Team (Late st Contact Info) Description 04/20/2024 8:00 AM EST Office Visit [facility] ADULT DENTAL [address] [place] [address] Janay Veliz DMD documented as of this encounter Visit Diagnoses Not on filedocumented in this encounter Additional Health Concerns Assessment Noted Time PHQ-9 Depression Total Score: 0 03/04/19 23 9:18 AM EST documented as of this encounter Care Teams Auto Locator Relationship Specialty Start Date End Date Christopher Wang MD [address] [place] [address] PCP - General Internal Medicine 08/23/19 documented as of this encounter
--- OUTSIDE RECORDS SUMMARY | 2024-04-11 11:17 | XMS_ITS ---
Author Organization [facility] Address [address] [place] [phone] Care Team Providers Care Messaging Architect Name Role Phone Christopher Wang M.D. Primary Care Provider Un available Rubén Bruce Jr Unavailable ALLERGIES No Known Allergies REASON FOR VISIT Patient presents today for heartburn MEDICATIONS Medication SIG (Take, Route, Frequency, Duration) Notes Start Date End Date Status metFORMIN HCl ER 500 MG Oral for 30 Active Gas Relief Extra Strength Active Aspirin Low Dose 81 MG CHEW ONE TABLET E VERY MORNING Oral for 30 Active Vitamin B-12 1000 MCG TAKE ONE TABLET EV ROGELIO MORNING Oral for 30 Active Calcium + Vitamin D3 600-10 MG-MCG TAKE ONE TABLET IN THE MORNING AND EVENING Oral for 30 Active Vitamin D 25 MCG (1000 UT) 1 tablet Oral ly Once a day for 30 day(s) Active Isosorbide Mononitrate Active Gabapentin 800 MG Oral for 30 Active pyRIDostigmine Verdigre 60 MG TAKE ONE TABLET THREE TIMES DAILY Oral for 30 Active Imuran 50 MG as directed Orally Active Dicyclomine HCl 20 MG 1 tablet Orally 2- 4 times a day 11/28/2021 Not-Taking Omeprazole 40 MG 1 Orally Once a day for 30 days 09/11/2022 Active Cyclobenzaprine HCl 5 MG Oral for 7 Active Atorvastatin Calcium Active Metoclopramide HCl 10 MG Oral for 10 Active Irbesartan-hydroCHLOROthiaz josephine 150-12.5 MG Oral for 30 Active SOCIAL HISTORY Tobacco Use: Social History Observation Description Date Details (start date - stop date) Never Smoker NA - NA Sex Assigned At : Social History Observation Description Sex Assigned At Unknown Tobacco Use/Smoking Question Answer Notes Patient is a nonsmoker Alcohol Screen Question Answer Notes Did you have a drink containing alcohol in the p ast year? No Points 0 Interpretation Negative PROBLEMS Problem Type ICD Code Onset Dates Problem Status W/U Status Risk SNOMED Code Notes Problem Allergy, initial encounter (T78.40XA) Active confirmed 859207103 VITAL SIGNS Temperature 97.7 degrees Fahrenheit 01/06/20 24 Blood pressure systolic 00 mm Hg 01/06/20 24 Blood pressure diastolic 00 mm Hg 024 Height 73 in 01/06/2024 Weight 296 lbs 01/06/2024 BMI 39.05 kg/m2 01/06/2024 Encounters Encounter Location Date Provider Diagnosis [facility] [address] [facility] [address] [place] [address] 01/06/2024 Rubén Bruce Jr Gastroesophageal reflux disease without esophagitis K21.9 ; Abnormal barium swallow R93.3 and Allergy, initial encounter T78.40XA ASSESSMENTS Encounter Date Diagnosis Assessment Notes Treatment Notes Treatment Clinical Notes 01/06/2024 Gastroesophageal ref lux disease without esophagitis (ICD-10 - K21.9) Digestive diseases material was printed 01/06/2024 Abnormal barium swal low (ICD-10 - R93.3) 01/06/2024 Allergy, initial encounter (ICD-10 - T78.40XA) PLAN OF TREATMENT Treatment Notes Assessment Notes Gastroesophageal reflux dise ase without esophagitis Digestive diseases material was printed Next Appt Details Follow Up: 1 Year, Reason: Provider Name:Rubén topete Jr, 01/04/2025 10:40:00 AM, [address] [place] [address], [address], [place], [phone],
--- OUTSIDE RECORDS SUMMARY | 2024-04-11 11:17 | XMS_ITS ---
Author Organization [facility] Address [address] [place] [address] Care Team Providers Care Paper And Pulp Mill Operator Name Role Phone Christopher Wang M.D. Primary Care Provider Un available Rubén Bruce Jr Encounters Encounter Location Date Provider Diagnosis [facility] [address] [facility] [address] [place] [phone] 09/21/2023 Rubén Bruce Jr PLAN OF TREATMENT Next Appt Details Provider Name:Rubén topete Jr, 01/04/2025 10:40:00 AM, [address] [place] [address], [address], [place], [phone],
--- OUTSIDE RECORDS SUMMARY | 2024-04-11 11:17 | XMS_ITS | Encounter Summary ---
Author Organization [employer] Address [address] [facility] 7 [place] [address] Care Team Providers Care Behavioral Health Tech Name Role Phone Christopher Wang MD Primary Care Provider [phone] Encounter Details Date Type Department Care Team (Latest Contact Info) Description 04/11/2024 Travel Social History Tobacco Use Types Packs/Day [...] Upcoming Encounters Date Type Department Care Team ([facility] st Contact Info) Description 04/20/2024 8:00 AM EST Office Visit [facility] ADULT DENTAL [address] [place] [address] Janay Veliz DMD documented as of this encounter Visit Diagnoses Not on filedocumented in this encounter Additional Health Concerns Assessment Noted Time PHQ-9 Depression Total Score: 1 12/24/19 24 1:52 PM EST documented as of this encounter Care Teams Behavioral Health Tech Relationship Specialty Start Date End Date Christopher Wang MD [address] [place] [address] PCP - General Internal Medicine 08/23/19 documented as of this encounter
--- OUTSIDE RECORDS SUMMARY | 2024-04-11 11:17 | XMS_ITS | Encounter Summary ---
Author Organization [employer] Address [address] [facility] 7 [place] [address] Care Team Providers Care Tar Man Name Role Phone Christopher Wang MD Primary Care Provider [phone]- [phone] Encounter Details Date Type Department Care Team ([facility] st Contact Info) Description 02/03/2023 Orders Only [facility] MED & PEDS [address] [place] [address] Christopher Wang MD [address] [place] [address] Acquired hypothyroidism (Primary Dx); Type 2 diabetes mellitus without complication, without long-term current use of insulin ([facility]) Social History Tobacco Use Types Packs/Day Years [...] Description 04/20/2024 8:00 AM EST Office Visit [facility] ADULT DENTAL [address] [place] [address] Janay Veliz DMD documented as of this encounter Procedures Procedure Name Priority Date/Time Associated Diagnosis Comments ALBUMIN, RANDOM URINE W/CREATININE Routine 02/03/2023 9:00 AM EST Acquired hypothyroidism Type 2 diabetes mellitus without complication, without long-term current use of insulin (CMS/HCC) TSH W/REFLEX TO FT4 Routine 02/03/2023 8 :57 AM EST Acquired hypothyroidism Type 2 diabetes mellitus without complication, without long-term current use of insulin (CMS/HCC) LIPID PANEL, STANDARD Routine 02/03/2023 8:57 AM EST Acquired hypothyroidism Type 2 diabetes mellitus without complication, without long-term current use of insulin (CMS/HCC) COMPREHENSIVE METABOLIC PANEL Routine 02/03/2023 8:57 AM EST Acquired hypothyroidism Type 2 diabetes mellitus without complication, without long-term current use of insulin (CMS/HCC) documented in this encounter Results * Albumin, Random Urine W/Creatinine (02/03/2023 9:00 AM EST) Creatinine, Urine 176.37 mg/dL [facility] Microalbumin Urine 11.0 mg/L [facility] Microalbum Creatinine Ratio Ur 6.2 <30 ug/mg cr [facility] Comment:Albumin/Creatinine R atio Reference Ranges: Normal: < 30 ug/mg creatinine Microalbuminuria: 30 - 300 ug/mg creatinineClinical Albuminuria: > 300 ug/mg creatinine Urine (Urine, Random) 02/03/2023 9:00 AM EST 02/03/2023 2:19 PM EST us Christopher Wang MD LAB URINE ORDERABLES Final Result Performing Organization Address [facility] Co de Phone Number [facility] [address] [place] [phone] * TSH W/Reflex to FT4 (02/03/2023 8:57 AM EST) TSH reflex Free T4 1.22 0.32 - 4.0 uIU/mL [facility] Blood Venous blood specimen / Unknown 02/03/2023 8:57 AM EST 02/03/2023 2:20 PM EST us Christopher Wang MD LAB BLOOD ORDERABLES Final Result Performing Organization Address [facility] Co de Phone Number [facility] [address] [place] [phone] * Lipid Panel, Standard (02/03/2023 8:57 AM EST) Triglycerides 89 <150 mg/dL [facility] Comment:Desirable Triglyceri de: less than 150 mg/dLBorderline High Triglyceride 150-199 mg/dLHigh Triglyceride: 200-499 mg/dLVery High Triglyceride: greater than or equal to 5OO mg/dL Cholesterol 118 <200 mg/dL [facility] Comment:Desirable Cholestero l: less than 200 mg/dLBorderline High Cholesterol: 200-239 mg/dLHigh Cholesterol: greater than 239 mg/dL LDL Cholesterol Calculated 51 <100 mg/dL [facility] Comment:Desirable LDL: less than 100 mg/dLNear Optimal/Above Optimal LDL: 110- 129 mg/dLBorderline High LDL: 130-159 mg/dLHigh LDL: 160-189 mg/dLVery High LDL: greater than or equal to 190 mg/dL HDL Cholesterol 50 >40 mg/dL [facility] Comment:Desirable HDL: great er than 40 mg/dL Note: This HDL assay may give artificially low results in patients with liver disease. Blood Venous blood specimen / Unknown 02/03/2023 8:57 AM EST 02/03/2023 2:20 PM EST us Christopher Wang MD LAB BLOOD ORDERABLES Final Result [facility] [address] [place] [phone] * Comprehensive Metabolic Panel (02/03/2023 8:57 AM EST) Sodium 142 135 - 145 mmol/L [facility] Potassium 3.9 3.3 - 5.1 mmol/L [facility] Chloride 108 96 - 108 mmol/L [facility] Carbon Dioxide 25 22 - 29 mmol/L [facility] Anion Gap 13 12 - 20 [facility] Urea Nitrogen (BUN) 13 9 - 16 mg/dL [facility] Creatinine, Serum 0.75 0.5 - 1.4 mg/dL [facility] Estimated Glomerular Filt Rate >60 [facility] Comment:NOTE: For -Am erican individuals, multiply the result by 1.210.Chronic Kidney Disease: Estimated GFR < 60 mL/min/1.25y7Evpkln Kidney Disease: Estimated GFR < 15 mL/min/1.73m2 Glucose 93 60 - 115 mg/dL [facility] Calcium 9.2 8.4 - 10.2 mg/dL [facility] Bilirubin, Total 0.4 0.0 - 1.0 mg/dL [facility] Aspartate Amino Transferase 19 5 - 37 U/L [facility] Alanine Aminotransferase 15 0 - 40 U/L [facility] Total Protein 7.0 6.5 - 8.0 g/dL [facility] Albumin Level 4.0 3.5 - 5.0 g/dL [facility] Alkaline Phosphatase 77 39 - 117 U/L [facility] Blood Venous blood specimen / Unknown 02/03/2023 8:57 AM EST 02/03/2023 2:20 PM EST Christopher Wang MD LAB BLOOD ORDERABLES Final Result [facility] [address] [place] [phone] documented in this encounter Visit Diagnoses Diagnosis Acquired hypothyroidism- Primary Unspecified hypothyroidism Type 2 diabetes mellitus without complication, without long-term current use of insulin ([facility]) documented in this encounter Additional Health Concerns Assessment Noted Time PHQ-9 Depression Total Score: 0 03/04/19 23 9:18 AM EST documented as of this encounter Care Teams Tar Man Relationship Specialty Start Date End Date Christopher Wang MD [address] [place] [phone] PCP - General Internal Medicine 08/23/19 documented as of this encounter
--- OUTSIDE RECORDS SUMMARY | 2024-04-11 11:17 | XMS_ITS | Patient Health Record ---
Author Organization [facility] Address [address] [place] [address] Care Team Providers Care Insurance Broker Name Role Phone Christopher Wang M.D. Primary Care Provider Un available Rubén Bruce Jr Unavailable [phone] ALLERGIES No Known Allergies RESULTS Component Value Reference Range Notes Glucose, Whole Blood Reviewed date:05/15/2023 03:49:06 PM Interpretation: Performing Lab:[facility], [address] [place] [phone] Notes/Report: Glucose, Whole Blood 83 60-115 mg/dL METER # : [id number] Pathology Reviewed date:05/28/2023 11:10:39 AM Interpretation: Performing Lab:[facility], [address] [place] [phone] Notes/Report: Glucose, Whole Blood Reviewed date:05/15/2023 03:49:01 PM Interpretation: Performing Lab:[facility], [address] [place] [phone] Notes/Report: Glucose, Whole Blood 84 60-115 mg/dL METER # : [id number] REASON FOR REFERRAL No Information MEDICATIONS Medication SIG (Take, Route, Frequency, Duration) Notes Start Date End Date Status Dicyclomine HCl 20 MG 1 tablet Orally 2- 4 times a day 11/28/2021 Not-Taking Vitamin D 25 MCG (1000 UT) 1 tablet Oral ly Once a day for 30 day(s) Active Omeprazole 40 MG 1 Orally Once a day for 30 days 09/11/2022 Active Isosorbide Mononitrate Active Cyclobenzaprine HCl 5 MG Oral for 7 Active Atorvastatin Calcium Active Irbesartan-hydroCHLOROthiaz josephine 150-12.5 MG Oral for 30 Active Metoclopramide HCl 10 MG Oral for 10 Active metFORMIN HCl ER 500 MG Oral for 30 Active Gabapentin 800 MG Oral for 30 Active pyRIDostigmine [place] 60 MG TAKE ONE TABLET THREE TIMES DAILY Oral for 30 Active Imuran 50 MG as directed Orally Active Gas Relief Extra Strength Active Aspirin Low Dose 81 MG CHEW ONE TABLET E VERY MORNING Oral for 30 Active Vitamin B-12 1000 MCG TAKE ONE TABLET EV ROGELIO MORNING Oral for 30 Active Calcium + Vitamin D3 600-10 MG-MCG TAKE ONE TABLET IN THE MORNING AND EVENING Oral for 30 Active IMMUNIZATIONS Vaccine Route Administration Date Status Comme nts Influenza Unknown 11/16/2021 Administered Influenza Unknown 12/23/2023 Administered SOCIAL HISTORY Tobacco Use: Social History Observation [...] W/U Status Risk SNOMED Code Notes Problem Gastro-esophageal reflux disease without esophagitis (K21.9) Active confirmed Gastro-esophag eal reflux disease without esophagitis (843691993) Problem Periumbilical pain (R10.33) Active confirmed 408932121 Problem Gastroesophageal reflux disease without esophagitis (K21.9) Active confirmed 006593443 Problem Abnormal barium swallow (R93.3) Active confirmed 323629692 Problem LUQ pain (R10.12) Active confirmed 3017 41401 Problem Gas bloat syndrome (K92.89) Active confirmed 069752703 Problem Allergy, initial encounter (T78.40XA) Active confirmed 510252161 VITAL SIGNS Temperature 97.7 degrees Fahrenheit 01/06/2024 Blood pressure diastolic 00 mm Hg 01/06/2024 Height 73 in 01/06/2024 Blood pressure systolic 00 mm Hg 01/06/2024 Weight 296 lbs 01/06/2024 BMI 39.05 kg/m2 01/06/2024 Encounters Encounter Location Date Provider Diagnosis [facility] Outpatient [address] [place] [id number] 05/15/2023 Rubén Bruce Jr Abnormal CT scan, esophagus R93.3 ; Gastro-esophageal reflux disease without esophagitis K21.9 and Other dysphagia R13.19 [facility] [address] [place] [address] 05/07/2023 Rubén Bruce Jr Abnormal barium swallow R93.3 and Gastroesophageal reflux disease without esophagitis K21.9 [facility] [address] [address] 01/06/2024 Rubén Bruce Jr Gastroesophageal reflux disease without esophagitis K21.9 ; Abnormal barium swallow R93.3 and Allergy, initial encounter T78.40XA [facility] [address] [place] [address] 05/11/2023 Rubén Bruce Jr Gas bloat syndrome K92.89 [facility] [address] [place] [address] 05/13/2023 Rubén Bruce Jr [facility] [address] [place] [phone] 05/13/2023 Rubén Bruce Jr [facility] [address] [place] [phone] 05/28/2023 Rubén Bruce Jr [facility] [address] [place] [address] 09/21/2023 Rubén Bruce Jr ASSESSMENTS Encounter Date Diagnosis Assessment Notes Treatment Notes Treatment Clinical Notes 05/15/2023 Gastro-esophageal reflux disease without esophagitis (ICD-10 - K21.9) 05/15/[address] scan, esophagus (ICD-10 - R93.3) 05/07/2023 Gastroesophageal ref lux disease without esophagitis (ICD-10 - K21.9) 05/07/2023 Abnormal barium swal low (ICD-10 - R93.3) X-ray material was printed 01/06/2024 Gastroesophageal ref lux disease without esophagitis (ICD-10 - K21.9) Digestive diseases material was printed 01/06/2024 Abnormal barium swal low (ICD-10 - R93.3) 05/11/2023 Gas bloat syndrome (ICD-10 - K92.89) 05/15/2023 Other dysphagia (ICD -10 - R13.19) 01/06/2024 Allergy, initial encounter (ICD-10 - T78.40XA) PLAN OF TREATMENT Pending Test Test Name Order Date LIVER PROFILE 11/28/2021 LIPASE 11/28/2021 CBC w/o DIFF 11/28/2021 IgA 11/28/2021 TRANSGLUTAMINASE AB IGA 11/28/2021 US ABD 11/28/2021 TSH REFLEX FREE T4 11/28/2021 Future Test Test Name Order Date UPPER GI ENDOSCOPY BALLOOON DILATION OF ESOPH 05/07/2023 Next Appt Details Provider Name:Rubén topete Jr, 01/04/2025 10:40:00 AM, [address] [place] [address], [address], [place], [address], Insurance Providers Payer Name Payer Address Payer Phone Subscriber Number Group Number Insured Name Patient Relationship to Insured Coverage Start Date Coverage End Date [facility] [address] [place] [address] [id number] ANAIS JAEGER Self - patient is the insured MEDICAL (GENERAL) HISTORY Medical History History ICD Code Diabetes mellitus2 Hypertension Neuropathy Myasthenia gravis Edema Gastroesophageal reflux dise ase, EGD/, no Lanza's esophagus, balloon dilation of the EG junction for symptomatic dysphagia to 20 mm Colonoscopy 2020, diverticul osis, hemorrhoids, 2 mm tubular adenoma, 5 year recall. Surgical History Surgery Date(Month/Year) partial goiter knee left C4-5 fusion
--- OUTSIDE RECORDS SUMMARY | 2024-04-11 11:17 | XMS_ITS | Encounter Summary ---
Author Organization [email or web address] Address [address] [facility] 7 [place] [address] Care Team Providers Care Toy Painter Name Role Phone Christopher Wang MD Primary Care Provider +1 [phone] Encounter Details Date Type Department Care Team ([facility] st Contact Info) Description 10/23/2023 Orders Only [facility] CHC MED & PEDS [address] [place], [place] [phone] Christopher Wang MD [address] [place] [address] Bloating symptom Social History Tobacco Use Types [...] Description 04/20/2024 8:00 AM EST Office Visit [facility] ADULT DENTAL [address] [place] [address] Janay Veliz DMD documented as of this encounter Visit Diagnoses Diagnosis Bloating symptom Flatulence, eructation, and gas pain documented in this encounter Additional Health Concerns Assessment Noted Time PHQ-9 Depression Total Score: 0 03/04/19 23 9:18 AM EST documented as of this encounter Care Teams Toy Painter Relationship Specialty Start Date End Date Christopher Wang MD [address] [place] [address] PCP - General Internal Medicine 08/23/19 documented as of this encounter
--- OUTSIDE RECORDS SUMMARY | 2024-04-11 11:17 | XMS_ITS | Encounter Summary ---
Author Organization [employer] Address [address] [place] [address] [place] [address] Care Team Providers Care Gas Station Service Attendant Name Role Phone Christopher Wang MD Primary Care Provider [phone]- [phone] Reason for Visit * Reason Onset Date Comments CHART PREP 04/08/2024 Encounter Details Date Type Department Care Team ([facility] Contact Info) Description 04/08/2024 Telephone [facility] CHC MED & PEDS [address] [place] [address] Christopher Wang MD [address] [place] [address] CHART PREP Social History Tobacco Use Types Packs/Day Years [...] encounter Miscellaneous Notes * Telephone Encounter - Chidi Garcia [place] - 04/08/2024 1:45 PM EST Chart Prep Labs: not applicable Images: done Vaccines due: yes Referrals: INS DOES NOT COVER SERVICES Screenings: Overdue care gaps: A1C, PHQ-9 documented in this encounter Plan of Treatment Upcoming Encounters Date Type Department Care Team (Late st Contact Info) Description 04/20/2024 8:00 AM EST Office Visit [facility] ADULT DENTAL [address] [place] [address] Janay Veliz DMD documented as of this encounter Visit Diagnoses Not on filedocumented in this encounter Additional Health Concerns Assessment Noted Time PHQ-9 Depression Total Score: 1 12/24/19 24 1:52 PM EST documented as of this encounter Care Teams Gas Station Service Attendant Relationship Specialty Start Date End Date Christopher Wang MD [address] [place] [address] PCP - General Internal Medicine 08/23/19 documented as of this encounter
--- OUTSIDE RECORDS SUMMARY | 2024-04-11 11:17 | XMS_ITS | Clinical Summary ---
Author Organization [address] [facility] Address [address] [place] [address] Phone Care Team Providers Care Oracle Applications Analyst Name Role Phone Christopher Wang MD Primary Care Provider [phone] [phone] Allergies No known active allergies Medications acetaminophen (TYLENOL) 500 mg tablet Take 1 Tablet by mouth every 6 hours as needed. Active albuterol HFA (PROAIR HFA ; PROVENTIL HFA ; VENTOLIN HFA) 90 mcg/actuation inhaler Inhale 2 Puffs into the lungs every 4 hours as needed. Active aspirin 81 mg EC tablet Take 1 Tablet by mouth daily. Active betamethasone valerate (VALISONE) 0.1 % ointment Apply topically 2 times daily. Active brinzolamide-br imonidine (SIMBRINZA) 1-0.2 % ophthalmic suspension apply to the eye. Active carteoloL (OCUPRESS) 1 % ophthalmic solution 0.5 mL 2 times daily. Active cetirizine (ZyrTEC) 10 mg tablet Take 1 Tablet by mouth daily. Active cyanocobalamin (VITAMIN B-12) 100 mcg tablet Take 1 Tablet by mouth daily. Active dicyclomine (BENTYL) 20 mg tablet Take 1 Tablet by mouth every 6 hours. Active famotidine (PEPCID) 20 mg tablet Take 1 Tablet by mouth 2 times daily. Active fluticasone propionate (FLONASE) 50 mcg/actuation nasal spray 2 Sprays by Each Nare route daily. Active gabapentin (NEURONTIN) 800 mg tablet Take 1 Tablet by mouth 3 times daily. Active hydroCHLOROthia zide 12.5 mg tablet Take 1 Tablet by mouth daily. Active irbesartan-hydr oCHLOROthiazide (AVALIDE) 150-12.5 mg per tablet Take 1 Tablet by mouth daily. Active metFORMIN XR (GLUCOPHAGE-XR) 500 mg 24 hr tablet Take 1 Tablet by mouth daily (with breakfast). Active naproxen (NAPROSYN) 500 mg tablet Take 1 Tablet by mouth 2 times daily (with meals). Active omeprazole (PRILOSEC) 20 mg tablet,delayed release (DR/EC) Take by mouth. Active predniSONE (DELTASONE) 2.5 mg tablet Take 1 Tablet by mouth daily. Active psyllium (METAMUCIL) 0.52 gram capsule Take 1 Capsule by mouth daily. Active pyRIDostigmine (MESTINON) 60 mg tablet Take 1 Tablet by mouth 3 times daily. Active senna (SENOKOT) 8.6 mg tablet Take by mouth. A ctive simvastatin (ZOCOR) 40 mg tablet Take 1 Tablet by mouth at bedtime. Active Immunizations Name Administration Dates Next Due Moderna SARS-CoV-2 COVID-19, mRNA, LNP-S, preservative free 01/15/2021,05/16/2020,04/18/2020 Social History Tobacco Use Types Packs/Day Years Used Date Smoking Tobacco: Never Assessed Sex and Gender Information Value Date Recorded Sex Assigned at Not on file Legal Sex Male 8:56 PM EST Gender Identity Not on file Sexual Orientation Not on file Last Filed Vital Signs Vital Sign Reading Time Taken Comments Blood Pressure - - Pulse - - Temperature - - Respiratory Rate - - Oxygen Saturation - - Inhaled Oxygen Concentration - - Weight 122 kg (268 lb) 11/17/2023 8:04 AM EDT Height 185.4 cm (6' 1 ) 11/17/2023 8:04 AM EDT Body Mass Index 35.36 11/17/2023 8:04 AM EDT Plan of Treatment Upcoming Encounters Date Type Department Care Team (Late st Contact Info) Description 05/31/2024 9:00 AM EDT Office Visit [facility] [address] [phone] Barber Beatty DPM 175 [facility] [address] [place] [address] Health Maintenance Due Date Last Done Comments DTaP,Tdap,and Td Vaccines (1 - Tdap) 1976 Pneumococcal Vaccine: 50+ Years (1 of 2 - PCV) 1976 Zoster Vaccines (1 of 2) 06/25/2007 RSV Immunization Patients 60 + Years Old (1 - Risk 60-74 years 1-dose series) 2017 Abdominal Aortic Aneurysm (AAA) Screen 03/13/2023 Colorectal Cancer Screening: Colonoscopy 03/13/2023 Depression Screening 03/13/2023 Falls Risk Assessment 03/13/2023 Social Influencers of Health Screening 03/13/2023 COVID-19 Vaccine (4 - 2023-2 5 season) 2023 01/15/2021, 05/16/2020, 04/18/2020 Influenza Vaccine (#1) 2023 Cholesterol Screening (Lipid Panel) 02/04/2028 02/03/2023 Hepatitis C Screening Completed 2021 HIB Vaccines Aged Out No longer eligi ble based on patient's age to complete this topic HPV Vaccines Aged Out No longer eligi ble based on patient's age to complete this topic Hepatitis A Vaccines Aged Out No long er eligible based on patient's age to complete this topic Hepatitis B Vaccines Aged Out No long er eligible based on patient's age to complete this topic IPV Vaccines Aged Out No longer eligi ble based on patient's age to complete this topic MMR Vaccines Aged Out No longer eligi ble based on patient's age to complete this topic Meningococcal ACWY Vaccine Aged Out N o longer eligible based on patient's age to complete this topic Meningococcal B Vacine Aged Out No lo nger eligible based on patient's age to complete this topic RSV Immunization Patients Under 20 months Aged Out No longer eligible b ased on patient's age to complete this topic Varicella Vaccines Aged Out No longer eligible based on patient's age to complete this topic Procedures Procedure Name Priority Date/Time Associated Diagnosis Comments LIPID PANEL Routine 02/03/2023 HM HEPATITIS C SCREENING Routine 2021 from Last 3 Months or Most Recently Relevant to Health Maintenance Results * Lipid panel (02/03/2023) Triglycerides 0 mg/dL Comment:No interpretation Cholesterol 0 mg/dL Comment:No interpretation HDL 0 mg/dL Comment:No interpretation LDL Cholesterol 0 mg/dL Comment:No interpretation Blood Venous blood specimen / Unknown Historical Provider LAB BLOOD ORDERABLES Elizabeth l Result * Hepatitis C Screening (2021) Hepatitis C Screening Abstracted Historical Provider HEALTH MAINTENANCE Final Result from Last 3 Months or Most Recently Relevant to Health Maintenance Insurance MEDICAID - [place] Care Teams Oracle Applications Analyst Relationship Specialty Start Date End Date Christopher Wang MD [address] [place] [address] PCP - General 04/28/14
--- OUTSIDE RECORDS SUMMARY | 2024-04-11 11:17 | XMS_ITS | Encounter Summary ---
Author Organization [employer] Address [address] [place] [address] [place] [address] Care Team Providers Care Administrative And Program Specialist Name Role Phone Christopher Wang MD Primary Care Provider [phone]- [phone] Reason for Visit * Reason Onset Date Comments Referral 12/04/2023 Encounter Details Date Type Department Care Team ([facility] st Contact Info) Description 12/04/[address] [facility] CHC MED & PEDS [address] [place] [address] Christopher Wang MD [address] [place] [address] Referral Social History Tobacco Use Types Packs/Day Years [...] encounter Miscellaneous Notes * Telephone Encounter - Jeremiah Sainz - 12/14/2023 9:50 AM EDT Tc from pt requesting a call back in regards to referral for audiology, pt stated they contacted number on referral letter however states they have not had any responses, pt stated during last appt they discussed with PCP. Please contact at [phone] * Telephone Encounter - Ainsley Laird - 12/04/2023 11:00 AM EDT Tc from pt requesting a different location for audiology referral. Pt stated he called [employer] and had a hard time. Pt is requesting to be seen in a facility in [place] as discussed duringlast office visit No further details provided. Contact pt at [phone] documented in this encounter Plan of Treatment Upcoming Encounters Date Type Department Care Team (Late st Contact Info) Description 04/20/2024 8:00 AM EST Office Visit [facility] ADULT DENTAL [address] [place] [address] Janay Veliz DMD documented as of this encounter Visit Diagnoses Not on filedocumented in this encounter Additional Health Concerns Assessment Noted Time PHQ-9 Depression Total Score: 0 03/04/19 23 9:18 AM EST documented as of this encounter Care Teams Administrative And Program Specialist Relationship Specialty Start Date End Date Christopher Wang MD [address] [place] [id number] PCP - General Internal Medicine 08/23/19 documented as of this encounter
--- OUTSIDE RECORDS SUMMARY | 2024-04-11 11:17 | XMS_ITS | Encounter Summary ---
Author Organization [employer] Address [address] [facility] 7 [place] [address] Care Team Providers Care Acquisition Associate Name Role Phone Christopher Wang MD Primary Care Provider [phone]- [phone] Encounter Details Date Type Department Care Team ([facility] st Contact Info) Description 06/10/2023 Orders Only [facility] CHC MED & PEDS [address] [place], [place] [phone] Christopher Wang MD [address] [place] [address] Social History Tobacco Use Types Packs/Day Years [...] Description 04/20/2024 8:00 AM EST Office Visit [facility] [address] [place] [address] Janay Veliz DMD documented as of this encounter Visit Diagnoses Not on filedocumented in this encounter Additional Health Concerns Assessment Noted Time PHQ-9 Depression Total Score: 0 03/04/19 23 9:18 AM EST documented as of this encounter Care Teams Acquisition Associate Relationship Specialty Start Date End Date Christopher Wang MD [address] [place] [address] PCP - General Internal Medicine 08/23/19 documented as of this encounter
--- OUTSIDE RECORDS SUMMARY | 2024-04-11 11:17 | XMS_ITS | Encounter Summary ---
Author Organization [employer] Address [address] [facility] 7 [place] [address] Care Team Providers Care Package Winder Name Role Phone Christopher Wang MD Primary Care Provider +1 [phone] Encounter Details Date Type Department Care Team ([facility] st Contact Info) Description 09/29/2023 Orders Only [facility] CHC MED & PEDS [address] [place], [place] [phone] Christopher Wang MD [address] [place] [address] Gastroesophageal reflux disease, unspecified whether esophagitis present (Primary Dx) Social History Tobacco Use Types [...] Upcoming Encounters Date Type Department Care Team ([facility] st Contact Info) Description 04/20/2024 8:00 AM EST Office Visit [facility] [address] [place] [address] Janay Veliz DMD documented as of this encounter Visit Diagnoses Diagnosis Gastroesophageal reflux disease, unspecified whether esophagitis present- Primary documented in this encounter Additional Health Concerns Assessment Noted Time PHQ-9 Depression Total Score: 0 03/04/19 23 9:18 AM EST documented as of this encounter Care Teams Package Winder Relationship Specialty Start Date End Date Christopher Wang MD [address] [place] [address] PCP - General Internal Medicine 08/23/19 documented as of this encounter
--- OUTSIDE RECORDS SUMMARY | 2024-04-11 11:17 | XMS_ITS | Encounter Summary ---
Author Organization [employer] Address [address] [place] [address] [place] [address] Care Team Providers Care Director Commercial Sales Name Role Phone Christopher Wang MD Primary Care Provider [phone]- [phone] Reason for Visit * Reason Comments Med Refill Encounter Details Date Type Department Care Team ([facility] st Contact Info) Description 10/23/[address] [facility] CHC MED & PEDS [address] [place], [place] [phone] Christopher Wang MD [address] [place] [address] Bloating symptom Social History Tobacco Use Types [...] Upcoming Encounters Date Type Department Care Team ([facility] st Contact Info) Description 04/20/2024 8:00 AM EST Office Visit [facility] ADULT DENTAL [address] [place] [address] Janay Veliz DMD documented as of this encounter Visit Diagnoses Diagnosis Bloating symptom Flatulence, eructation, and gas pain documented in this encounter Additional Health Concerns Assessment Noted Time PHQ-9 Depression Total Score: 0 03/04/19 23 9:18 AM EST documented as of this encounter Care Teams Director Commercial Sales Relationship Specialty Start Date End Date Christopher Wang MD [address] [place] [address] PCP - General Internal Medicine 08/23/19 documented as of this encounter
--- OUTSIDE RECORDS SUMMARY | 2024-04-11 11:17 | XMS_ITS | Encounter Summary ---
Author Organization [employer] Address [address] [facility] 7 [place] [address] Care Team Providers Care Fulfillment Associate Name Role Phone Christopher Wang MD Primary Care Provider [phone] Reason for Visit * Reason Comments Extraction #[id number], 32 Encounter Details Date Type Department Care Team ([facility] Contact Info) Description 03/30/2024 9:00 AM EST Office Visit [facility] [address] [place] [address] Janay Veliz DMD Social History Tobacco Use Types Packs/Day Years [...] Sign Reading Time Taken Comments Blood Pressure 140/80 03/30/2024 9:08 AM EST Pulse - - Temperature - - Respiratory Rate - - Oxygen Saturation - - Inhaled Oxygen Concentration - - Weight - - Height - - Body Mass Index - - documented in this encounter Progress Notes * Janay Veliz DMD - 03/30/2024 9:00 AM EST Dental procedures in this visit D7140 - EXTRACTION, ERUPTED TOOTH OR EXPOSED ROOT (ELEVATION AND/OR FORCEPS REMOVAL) 32 (Completed) Service provider: Janay Veliz DMD Billing provider: Ronal Andrade DMD [id number] - ADJUNCTIVE GENERAL SERVICES - PROFESSIONAL VISITS - CASE PRESENTATION, SUBSEQUENT TO DETAILED AND EXTENSIVE TREATMENT PLANNING (Completed) Service provider: Janay Veliz DMD Billing provider: Ronal Andrade DMD [id number] - PANORAMIC RADIOGRAPHIC IMAGE (Completed) Service provider: Janay Veliz DMD Billing provider: Ronal Andrade DMD Patient ID: Blaine Farris is a 68 y.o. male. Time Out: Date: 03/30/2024 Location: [facility] Tooth: #32 Procedure: Extraction Verified the above with patient, assistant public defender, and provider. Confirmed via patient's chart, intraorally and by radiographs. Integrated Logistics Programs Director: not applicable Simple Extraction of #32 done [address] [place] by Dr. Janay Veliz DMD Risk, benefits, and alternatives discussed with the patient. CONSENT FORM INITIALED & SIGNED BY THE PATIENT AND COUNTERSIGNED BY Dr. Janay Veliz DMD Medical history: Reviewed in EHR Vitals: Blood pressure (!) 140/80. Allergies: Reviewed in EHR Medications: Reviewed in EHR - LA: 20% topical benzocaine; CLAY block and long buccal infiltration with 1.5 carpule 4% septocaine/articaine 1:100,000 epinephrine - Gingival fibers using periosteal elevator. - Tooth luxated using straight elevator. - Tooth extracted using: [place] Eh Forceps - Curettage done. - Area checked for sharp bony edges / filing of sharp bony edges done. - Hemostasis achieved before dismissal. Patient comfortable to walk. - Gauze pack placed. - Post op instructions (written + verbal), extra pack of gauze given. - Rx: Amoxicillin and Acetaminophen All patient questions answered. Patient comfortable upon dismissal. NV: EXT #17 Provider: Dr. Janay Veliz DMD Framing Carpenter: Shazia Mercedes Supervising Dentist: Dr. Ronal Andrade DMD * Ronal Andrade DMD - 03/30/2024 9:00 AM EST I saw and evaluated the patient, participating in the vega portions of the service. I reviewed the resident???s note. I agree with the resident???s findings and plan. Ronal Andrade DMD documented in this encounter Plan of Treatment Upcoming Encounters Date Type Department Care Team (Late st Contact Info) Description 04/20/2024 8:00 AM EST Office Visit [facility] ADULT [facility] [address] [place] [address] Janay Veliz DMD Scheduled Orders Name Type Priority Associated Diagnoses Orde r Schedule 7 ML 7 ML RESTORATIVE - RESIN-BASED COMPOSITE RESTORATIONS - DIRECT - RESIN-BASED COMPOSITE - TWO SURFACES, ANTERIOR Dental Routine 1 Occurr ences starting 03/30/2024 8 DL 8 DL RESTORATIVE - RESIN-BASED COMPOSITE RESTORATIONS - DIRECT - RESIN-BASED COMPOSITE - TWO SURFACES, ANTERIOR Dental Routine 1 Occurr ences starting 03/30/2024 documented as of this encounter Procedures Procedure Name Priority Date/Time Associated Diagnosis Comments PANORAMIC RADIOGRAPHIC IMAGE Routine 03/30/2024 9:00 AM EST 32 EXTRACTION, ERUPTED TOOTH OR EXPOSED ROOT (ELEVATION/FORCEPS REMOVAL) Routine 03/30/2024 9:00 AM EST CASE PRESENTATION, DETAILED AND EXTENSIVE TREATMENT PLANNING Routine 03/30/2024 9:00 AM EST documented in this encounter Visit Diagnoses Not on filedocumented in this encounter Additional Health Concerns Assessment Noted Time PHQ-9 Depression Total Score: 1 12/24/19 24 1:52 PM EST documented as of this encounter Care Teams Fulfillment Associate Relationship Specialty Start Date End Date Christopher Wang MD [address] [place] [phone] PCP - General Internal Medicine 08/23/19 documented as of this encounter
--- OUTSIDE RECORDS SUMMARY | 2024-04-11 11:17 | XMS_ITS | Encounter Summary ---
Author Organization [employer] Address [address] [facility] 7 [place] [address] Care Team Providers Care Cubing Machine Tender Name Role Phone Christopher Wang MD Primary Care Provider [phone] Reason for Visit * Reason Comments Cough Encounter Details Date Type Department Care Team (Late st Contact Info) Description 03/23/2024 9:00 AM EST Office Visit [facility] [address] [place] [address] Luda Armando NP [address] [place] [address] Cough in adult patient; Chronic cough Social History Tobacco Use Types Packs/Day Years [...] Sign Reading Time Taken Comments Blood Pressure 123/69 03/23/2024 8:59 AM EST Pulse 88 03/23/2024 8:59 AM EST Temperature 36.9 ??C (98.4 ??F) 03/23/2024 8:59 AM ES T Respiratory Rate 18 03/23/2024 8:59 AM EST Oxygen Saturation 98% 03/23/2024 8:59 AM EST Inhaled Oxygen Concentration - - Weight 138 kg (304 lb) 03/23/2024 8:59 AM EST Height - - Body Mass Index 40.11 12/24/2023 1:09 PM EST documented in this encounter Progress Notes * Luda Armando NP - 03/23/2024 9:00 AM EST SUBJECTIVE: Blaine Farris is a 68 y.o. male who presents to the Walk in [place] for a sick visit. Denies recent illness, injury, or hospitalization. Cough Pertinent negatives include no chest pain, chills, fever, headaches, myalgias, rash, sore throat, shortness of breath or wheezing. States he dad COVID 2 weeks ago with negative repeat testing. Has lingering productive cough. He's tried delsym, and robitussin. Has post nasal drip. Denies fevers, chills, sore throat, general malaise. Review of Systems Constitutional: Negative. Negative for chills and fever. HENT: Negative. Negative for congestion and sore throat. Eyes: Negative for discharge. Respiratory: Positive for cough. Negative for chest tightness, shortness of breath and wheezing. Cardiovascular: Negative for chest pain and palpitations. Gastrointestinal: Negative. Negative for abdominal pain, constipation, diarrhea and nausea. Genitourinary: Negative. Negative for difficulty urinating. Musculoskeletal: Negative. Negative for arthralgias and myalgias. Skin: Negative for rash. Neurological: Negative. Negative for dizziness, speech difficulty, light- headedness and headaches. Hematological: Negative. Psychiatric/Behavioral: Negative for behavioral problems, self-injury and suicidal ideas. The patient is not nervous/anxious. OBJECTIVE: Visit Vitals BP 123/69 (BP Location: Right arm, Patient Position: Sitting, BP Cuff Size: Large adult) Pulse 88 Temp 98.4 ??F (36.9 ??C) (Temporal) Resp 18 Wt 304 lb (138 kg) SpO2 98% BMI 40.11 kg/m?? Smoking Status Never BSA 2.67 m?? Patient Active Problem List Diagnosis Calculus of gallbladder without cholecystitis without obstruction Anxiety Obesity Diabetes mellitus ([facility]) Gastroesophageal reflux disease Diverticulitis of large intestine Hypertension Hypothyroidism Myasthenia gravis ([facility]) Obstructive sleep apnea syndrome Peripheral nerve disease Peripheral venous insufficiency Chest discomfort Cough Physical Exam Vitals reviewed. Constitutional: General: He is not in acute distress. Appearance: Normal appearance. He is not ill-appearing. HENT: Head: Normocephalic and atraumatic. Right Ear: External ear normal. Left Ear: External ear normal. Nose: Nose normal. Mouth/Throat: Mouth: Mucous membranes are moist. Pharynx: Oropharynx is clear. Uvula midline. Postnasal drip present. No oropharyngeal exudate or posterior oropharyngeal erythema. Tonsils: No tonsillar exudate or tonsillar abscesses. Eyes: General: No scleral icterus. Extraocular Movements: Extraocular movements intact. Pulmonary: Effort: Pulmonary effort is normal. No respiratory distress. Musculoskeletal: General: Normal range of motion. Cervical back: Normal range of motion. Neurological: General: No focal deficit present. Mental Status: He is alert and oriented to person, place, and time. Gait: Gait normal. Psychiatric: Mood and Affect: Mood normal. Behavior: Behavior normal. Assessment/Plan Diagnoses and all orders for this visit: Cough in adult patient Comments: -well appearing, vital signs stable -POCT test negative flu and COVID -trial flonase, and tessalon perals refilled -increase hydration, cough gtts, tea with honey and lemon -RTC if no improvement Orders: - Influenza A (ID NOW Rapid Molecular) - Influenza B (ID NOW Rapid Molecular) - POCT Rapid COVID Ag - fluticasone (Flonase) 50 MCG/ACT nasal spray; Administer 1 spray into each nostril 2 times daily.spray 1 spray by intranasal route every day in each nostril Chronic cough - benzonatate (Tessalon) 100 MG capsule; Take 1 capsule (100 mg) by mouth if needed in the morning, at noon, and at bedtime for cough. Do not crush or chew. documented in this encounter Plan of Treatment Upcoming Encounters Date Type Department Care Team (Late st Contact Info) Description 04/20/2024 8:00 AM EST Office Visit [facility] AD[facility] [address] [place] [address] Janay Veliz DMD documented as of this encounter Procedures Procedure Name Priority Date/Time Associated Diagnosis Comments POCT INFLUENZA A (ID NOW RAPID MOLECULAR) Routine 03/23/2024 9:19 AM EST Cough in adult patient POCT INFLUENZA B (ID NOW RAPID MOLECULAR) Routine 03/23/2024 9:13 AM EST Cough in adult patient POCT RAPID COVID ANTIGEN Routine 03/23/2024 9:03 AM EST Cough in adult patient documented in this encounter Results * Influenza A (ID NOW Rapid Molecular) (03/23/2024 9:19 AM EST) Pathologist [facility] Influenza A Negative Negative, Indeterminate [facility] Swab 03/23/2024 9:19 AM EST us Luda Armando NUTRITION SPECIALIST POINT OF CARE TEST ENTER/EDIT O RDERABLES Final Result Performing Organization Address City/[facility]/ZIP Co de Phone Number [facility] [address] [place] [phone] * Influenza B (ID NOW Rapid Molecular) (03/23/2024 9:13 AM EST) Pathologist [facility] Influenza B Negative Negative, Indeterminate [facility] Swab 03/23/2024 9:13 AM EST us Lares Josselinem NUTRITION SPECIALIST POINT OF CARE TEST ENTER/EDIT O RDERABLES Final Result Performing Organization Address City/[facility] Co de Phone Number [facility] [address] [place] [phone] * POCT Rapid COVID Ag (03/23/2024 9:03 AM EST) Pathologist [facility] Rapid COVID Ag Negative Swab 03/23/2024 9:03 AM EST us Luda Armando NUTRITION SPECIALIST POINT OF CARE TEST ENTER/EDIT O RDERABLES Final Result documented in this encounter Visit Diagnoses Diagnosis Cough in adult patient Chronic cough Cough documented in this encounter Additional Health Concerns Assessment Noted Time PHQ-9 Depression Total Score: 1 12/24/19 24 1:52 PM EST documented as of this encounter Care Teams Cubing Machine Tender Relationship Specialty Start Date End Date Christopher Wang MD [address] [place] [phone] PCP - General Internal Medicine 08/23/19 documented as of this encounter
--- OUTSIDE RECORDS SUMMARY | 2024-04-11 11:17 | XMS_ITS | Clinical Summary ---
Author Organization [employer] Address [address] [place] [address] 7 [place] [address] Care Team Providers Care Vp Revenue Cycle Name Role Phone Christopher Wang MD Primary Care Provider [phone]- [phone] Allergies No known active allergies Medications Acetaminophen Extra Strength 500 MG tablet TAKE ONE TABLET EVERY 8 HOURS NEEDED Active ProAir HFA 108 (90 Base) MCG/ACT inhaler INHALE TWO puffs FOUR TIMES DAILY Active azaTHIOprine (Imuran) 50 MG tablet TAKE ONE TABLET THREE TIME DAILY IN THE MORNING, AT NOON, AND IN THE EVENING Active Simbrinza 1-0.2 % suspension PLACE ONE DROP IN EACH EYE TWICE DAILY Active carteolol (Ocupress) 1 % ophthalmic solution Insert 1 drop into both eyes twice daily Active dicyclomine (Bentyl) 20 MG tablet TAKE ONE TABLET TWO TO FOUR TIMES DAILY Active irbesartan-hydroCH LOROthiazide (Avalide) 150-12.5 MG tablet Take 1 tablet by mouth 1 (one) time each day. Active naproxen (Naprosyn) 500 MG tablet Take 500 mg by mouth if needed in the morning and at bedtime. Take 500 mg by mouth if needed in the morning and at bedtime. Active pyridostigmine (Mestinon) 60 MG tablet Take 1 tablet by mouth 3 times daily. BID up to TID Active senna (Senokot) 8.6 MG tablet TAKE ONE TABLET BY MOUTH AT BEDTIME NEEDED FOR CONSTIPATION 022 Active simvastatin (Zocor) 40 MG tablet TAKE ONE TABLET EVERY EVENING 022 Active omeprazole (PriLOSEC) [address] capsule TAKE ONE CAPSULE IN THE MORNING AND EVENING 60 capsule 5 023 Active Lancets Misc. miscIndications:Ty pe 2 diabetes mellitus without complication, without long-term current use of insulin (CMS/[facility]) To use 2 times a day 100 each 11 023 Active Blood Glucose Monitoring Suppl (ONE TOUCH ULTRA 2) w/Device kit Use to check blood sugar TID 023 Active irbesartan (Avapro) 75 MG tablet Take 75 mg by mouth in the morning. 023 Active isosorbide mononitrate ER (Imdur) 30 MG 24 hr tablet Take 30 mg by mouth in the morning. 023 Active Lancets (OneTouch Delica Plus [id number]) misc TEST BLOOD SUGAR THREE TIMES DAILY 023 Active atorvastatin (Lipitor) 40 MG tablet Take 40 mg by mouth. 023 Active aspirin 81 MG EC tablet Take 81 mg by mouth. 023 Active cetirizine (ZyrTEC) 10 MG tablet TAKE ONE TABLET BY MOUTH ONCE DAILY 90 tablet 024 Active famotidine (Pepcid) 20 MG tablet TAKE ONE TABLET TWICE DAILY IN THE MORNING AND AT BEDTIME 60 tablet 11 024 Active Alcohol Swabs (SM Alcohol Prep) 70 % pads USE EVERY DAY 100 each 3 024 Active Diclofenac Sodium 1 % gelIndications:Pir iformis syndrome of left side To apply to the affected area 3 times a day 100 g 2 024 Active Calcium + Vitamin D3 600-10 MG-MCG tablet TAKE ONE TABLET IN THE MORNING AND EVENING 180 tablet 3 024 Active hydroCHLOROthiazid e (Microzide) 12.5 MG capsuleIndications :Primary hypertension TAKE ONE CAPSULE EVERY MORNING 90 capsule 3 024 Active capsaicin (Zostrix) 0.025 % creamIndications:T ype 2 diabetes mellitus without complication, without long-term current use of insulin (CMS/[facility]) Apply topically 2 times daily. 56.6 g 3 024 2024 Active ammonium lactate (Amlactin) 12 % creamIndications:D ry skin Apply topically if needed for dry skin. 385 g 11 024 2024 Active Omeprazole 20 MG tablet delayed-releaseInd ications:Gastroeso phageal reflux disease, unspecified whether esophagitis present Take 40 mg by mouth Once per day. 60 tablet 11 024 Active GAS RELIEF 125 MG capsule TAKE ONE CAPSULE THREE TIME DAILY IN THE MORNING, AT NOON, AND IN THE EVENING AFTER MEALS 90 capsule 5 024 Active b complex vitamins capsuleIndications :Type 2 diabetes mellitus without complication, without long-term current use of insulin ([facility]),Peripher al nerve disease Take 1 capsule by mouth Once per day. 30 capsule 11 024 2024 Active metoclopramide (Reglan) 10 MG tabletIndications: Bloating symptom TAKE ONE TABLET BY MOUTH FOUR TIMES DAILY FOR 10 DAYS 40 tablet 024 Active aspirin (Aspirin Low Dose) 81 MG chewable tabletIndications: Essential hypertension CHEW ONE TABLET EVERY MORNING 90 tablet 3 024 Active gabapentin (Neurontin) 800 MG tabletIndications: Peripheral nerve disease TAKE ONE TABLET THREE TIME DAILY IN THE MORNING, AT NOON, AND IN THE EVENING 90 tablet 5 025 Active cyanocobalamin (Vitamin B-12) 1000 MCG tabletIndications: Vitamin B12 deficiency TAKE ONE TABLET EVERY MORNING 30 tablet 5 025 Active cholecalciferol (Vitamin D-3) 25 MCG tablet TAKE ONE TABLET DAILY AT NOON 90 tablet 025 Active fluticasone (Flonase) 50 MCG/ACT nasal sprayIndications:C yvonne in adult patient Administer 1 spray into each nostril 2 times daily. spray 1 spray by intranasal route every day in each nostril 16 g 025 Active acetaminophen (Tylenol) 500 MG tablet Take 1 tablet (500 mg) by mouth every 6 (six) hours if needed for mild pain for up to 20 doses. 20 tablet 025 Active metFORMIN XR (Glucophage-XR) 500 MG 24 hr tabletIndications: Type 2 diabetes mellitus without complication, without long-term current use of insulin ([facility]) TAKE ONE TABLET EVERY EVENING WITH FOOD 30 tablet 5 Active benzonatate (Tessalon) 200 MG capsuleIndications :Chronic cough Take 1 capsule (200 mg) by mouth if needed in the morning, at noon, and at bedtime for cough for up to 7 days. Do not crush or chew. 20 capsule 025 2024 Active Continuous Glucose Orthopedic Podiatrist (FreeStyle Dee Dee 2 Warren) deviceIndications: Type 2 diabetes mellitus without complication, without long-term current use of insulin ([facility]) Scan sensor every 8 hours 1 each Active Continuous Glucose Sensor (FreeStyle Dee Dee 2 Sensor) miscIndications:Ty pe 2 diabetes mellitus without complication, without long-term current use of insulin ([facility]) Apply 1 sensor every 14 days 2 each Active glucose blood test stripIndications:T ype 2 diabetes mellitus without complication, without long-term current use of insulin ([facility]) To use once a day 100 each 12 025 2025 Active betamethasone valerate (Valisone) 0.1 % ointmentIndication s:Papular lichenification Apply topically if needed in the morning and at bedtime (dryness). 45 g 2 025 Active fluticasone (Flonase) 50 MCG/ACT nasal spray spray 1 spray by intranasal route every day in each nostril 020 2024 Discontinued(R eorder (will not trigger notification to Pharmacy)) metFORMIN XR (Glucophage-XR) 500 MG 24 hr tabletIndications: Type 2 diabetes mellitus without complication, without long-term current use of insulin ([facility]) TAKE ONE TABLET EVERY EVENING WITH FOOD 30 tablet 5 024 2024 Discontinued betamethasone valerate (Valisone) 0.1 % ointmentIndication s:Papular lichenification Apply topically if needed in the morning and at bedtime (dryness). 45 g 2 024 2024 Discontinued(R eorder (will not trigger notification to Pharmacy)) benzonatate (Tessalon) 100 MG capsuleIndications :Chronic cough TAKE ONE CAPSULE THREE TIMES DAILY IN THE MORNING, AT NOON, AND AT BEDTIME NEEDED FOR COUGH 20 capsule 3 024 2024 Discontinued(R eorder (will not trigger notification to Pharmacy)) benzonatate (Tessalon) 100 MG capsuleIndications :Chronic cough Take 1 capsule (100 mg) by mouth if needed in the morning, at noon, and at bedtime for cough. Do not crush or chew. 20 capsule 025 2024 Discontinued(D ose adjustment) amoxicillin (Amoxil) 500 MG capsule Take 1 capsule (500 mg) by mouth every 8 (eight) hours for 7 days. 21 capsule 025 2024 Active Problems Problem Noted Date Diagnosed Date Chest discomfort 06/20/2022 Assessment & Plan (06/20/2022 2:40 PM EDT): In light of recent negative stress test and EKGs I believe is more likely related to GI issues, I will repeat and EKG ad compare it to the ones done recently when he was hospitalized for chest pain Cough 06/20/2022 Assessment & Plan (02/17/2023 3:04 PM EST): Patient that presented visit with concerns of intermittent cough will be sent for a Pulmonary function test. In addition, patient will be sent for imaging and referred to Pulmonology. -Imaging: Chest X-Rays Hypothyroidism 02/28/2022 Calculus of gallbladder with out cholecystitis without obstruction 01/28/2022 Assessment & Plan (01/28/2022 1:29 PM EST): Patient had a ultrasound which showed cholelithiasis, no sign of inflamation/cholecystitis. Patient complains of ruq pain after eating, no associated fever/chils/nausea/vomiting, but he does recall having pain, since it is symptomatic will refer to surgery for evaluation Obesity 07/08/2016 Gastroesophageal reflux disease 07/08/2016 Assessment & Plan (06/20/2022 2:41 PM EDT): I advise patient to avoid NSAIDs, spicy and acid food, I advise to eat at the same time every day, I advise to elevate the head of the bed and take medications as prescribe I will renew his prescription for probiotics Myasthenia gravis 07/08/2016 Obstructive sleep apnea syndrome 07/08/2016 Peripheral nerve disease 07/08/2016 Anxiety 04/01/2016 Diverticulitis of large intestine 01/04/2016 Diabetes mellitus 09/24/2015 Hypertension 09/24/2015 Peripheral venous insufficiency 09/24/2015 Encounters Date Type Department Care Team Description 04/11/2024 9:15 AM EST Office Visit [facility] [address] [place] [address] Christopher Wang MD Primary hypertension (Primary Dx); Acquired hypothyroidism; Type 2 diabetes mellitus without complication, without long-term current use of insulin ([facility]); Hoarseness of voice; Chronic cough; Papular lichenification 04/11/2024 Travel 04/08/2024 Telephone [facility] [address] [place] [address] Christopher Wang MD CHART PREP 04/02/2024 Refill [facility] [address] [place] [address] Christopher Wang MD Type 2 diabetes mellitus without complication, without long-term current use of insulin ([facility]) 03/30/2024 9:00 AM EST Office Visit [facility] [address] [place] [address] Janay Veliz DMD 03/23/2024 9:00 AM EST Office Visit [facility] [address] [place] [address] Luda Armando NP Cough in adult patient; Chronic cough 03/23/2024 Travel 03/08/2024 Refill [facility] [address] [place] [phone] Christopher Wang MD 03/02/2024 Refill [facility] [address] [place] [address] Christopher Wang MD Vitamin B12 deficiency 02/29/2024 Telephone [facility] [address] [place] [address] Christopher Wang MD Nurse Triage 02/28/2024 Refill [facility] [address], [place] [phone] Christopher Wang MD Peripheral nerve disease 01/29/2024 Refill [facility] [address], [place] [phone] Christopher Wang MD Essential hypertension from Last 3 Months Immunizations Name Administration Dates Next Due Hep B, adult 08/27/2023 Influenza injectable quadriv alent IIV4 with preservative 11/08/2015 Influenza injectable quadriv alent preservative free 12/09/2021,12/21/2020,11/24/2019 Influenza, High Dose Seasona l, Preservative Free 11/09/2023 Influenza, IIV3, injectable 11/16/2021 Moderna Covid-19 Vaccine 12+ 01/15/2021,05/17/19 21,04/18/2020 Moderna Covid-19 Vaccine 6+ Bivalent 04/18/2022 Pneumococcal Conjugate PCV 13 02/06/2020 Pneumococcal Conjugate PCV 20 08/27/2023 Td (adult), 5 Lf tetanus tox oid, preservative free, adsorbed 07/27/2014 Tdap 2021 Zoster, Recombinant 04/11/2024,01/14/2021 Social History Tobacco Use Types Packs/Day Years Used Date Smoking Tobacco: Never Passive Smoke Exposure: Never Smokeless Tobacco: Never Tobacco Cessation:Counseling Given: Not Answered Alcohol Use Standard Drinks/Week Comments Never 0 [...] Orientation Straight 12/16/2021 10 :15 AM EDT Last Filed Vital Signs Vital Sign Reading [...] Mass Index 39.32 04/11/2024 9:32 AM EST Plan of Treatment Upcoming Encounters Date Type Department Care Team (Late st Contact Info) Description 04/20/2024 8:00 AM EST Office Visit [facility] [address] [place] [address] Janay Veliz DMD Health Maintenance Due Date Last Done Comments CT Colonography 1957 FIT DNA/Cologuard 1957 FIT 1957 FOBT 1957 Sigmoidoscopy 1957 Hepatitis A Vaccines (1 of 2 - Risk 2-dose series) 1976 RSV Patients and Patients Aged 60 years or older (1 - Risk 60-74 years 1-dose series) 2017 Zoster Vaccines (2 of 2) 03/11/2021 04/11/2024, 12/18 Hepatitis B Vaccines (2 of 3 - Risk 3-dose series) 09/24/2023 08/27/2023 COVID-19 Vaccine ( season) 2023 04/18/2022, 01/15/2021, 05/16/2020, Additional history exists Diabetes: Urine Protein Screening 02/04/2024 02/03/2023, 12/10/2021, 2021, Additional history exists Lipid Panel 02/04/2024 02/03/2023, 11/17, 03/08/2021, Additional history exists Dental Oral Exam 05/27/2024 11/26/2023, , 04/24/2014 Dental Prophylaxis 05/27/2024 11/26/2023, 12/30/2021 Eye Exam 08/11/2024 08/11/2022, 07/18, 08/11/2022, Additional history exists Diabetes: Hemoglobin A1C 10/09/2024 025, 11/25/2023, 08/27/2023, Additional history exists Diabetes: Foot Exam 11/08/2024 11/09/2023, 11/09/2023, 08/28/2022, Additional history exists Dental X-Ray: Bitewings 11/26/2024 11/26/19 24, 12/03/2021, 04/24/2014 SDOH Screening 12/16/2024 12/17/2023 Alcohol/Substance Use Screening 12/23/2024 12/24/2023 Depression Screening 12/23/2024 12/24/2023, 12/24/19 Tobacco Screening 03/30/2025 03/30/2024 Colonoscopy 02/23/2027 Colorectal Cancer Screening 02/23/2027 Dental X-Ray: Full Mouth 03/31/2027 025, 12/03/2021, 04/24/2014 DTaP/Tdap/Td Vaccines (2 - Td or Tdap) 06/25/2031 2021, 07/27/2014 Hepatitis C Screening Completed 2021 Pneumococcal Vaccine: 50+ Years Completed 08/27/2023, 02/06/2020 Influenza Vaccine Completed 11/09/2023, , 11/16/2021, Additional history exists HIB Vaccines Aged Out No longer eligi ble based on patient's age to complete this topic HPV Vaccines Aged Out No longer eligi ble based on patient's age to complete this topic IPV Vaccines Aged Out No longer eligi ble based on patient's age to complete this topic Meningococcal Vaccine Aged Out No janeen lori eligible based on patient's age to complete this topic RSV under 20 months Aged Out No longe r eligible based on patient's age to complete this topic Rotavirus Vaccines Aged Out No longer eligible based on patient's age to complete this topic Procedures Procedure Name Priority Date/Time Associated Diagnosis Comments POCT GLUCOSE Routine 04/11/2024 10:01 AM EST Type 2 diabetes mellitus without complication, without long-term current use of insulin ([facility]) POCT GLYCATED HEMOGLOBIN, TOTAL Routine 04/11/2024 9:59 AM EST Type 2 diabetes mellitus without complication, without long-term current use of insulin ([facility]) PANORAMIC RADIOGRAPHIC IMAGE Routine 03/30/2024 9:00 AM EST CASE PRESENTATION, DETAILED AND EXTENSIVE TREATMENT PLANNING Routine 03/30/2024 9:00 AM EST 32 EXTRACTION, ERUPTED TOOTH OR EXPOSED ROOT (ELEVATION/FORCEPS REMOVAL) Routine 03/30/2024 9:00 AM EST POCT INFLUENZA A (ID NOW RAPID MOLECULAR) Routine 03/23/2024 9:19 AM EST Cough in adult patient POCT INFLUENZA B (ID NOW RAPID MOLECULAR) Routine 03/23/2024 9:13 AM EST Cough in adult patient POCT RAPID COVID ANTIGEN Routine 03/23/2024 9:03 AM EST Cough in adult patient Full PROPHYLAXIS - ADULT Routine 11/26/2023 8:00 AM EDT BITEWINGS - 4 RADIOGRAPHIC IMAGES Routine 11/26/2023 8:00 AM EDT PERIODIC ORAL EVALUATION - ESTABLISHED PATIENT Routine 11/26/2023 8:00 AM EDT ALBUMIN, RANDOM URINE W/CREATININE Routine 02/03/2023 9:00 AM EST Acquired hypothyroidism Type 2 diabetes mellitus without complication, without long-term current use of insulin (CMS/HCC) LIPID PANEL, STANDARD Routine 02/03/2023 8:57 AM EST Acquired hypothyroidism Type 2 diabetes mellitus without complication, without long-term current use of insulin (CMS/HCC) ZZZ HISTORICAL HEPATITIS C AB W/REFL TO HCV RNA, QN, PCR Routine 2021 9:35 AM EDT from Last 3 Months or Most Recently Relevant to Health Maintenance Results * POCT Glucose (04/11/2024 10:01 AM EST) Glucose Blood, POC 120 60 - 200 mg/dL QC Media Lot # [id number] Comment:random Lot# Expiration Date [id number] Blood Capillary blood specimen / Unknown 04/11/2024 10:01 AM EST us Christopher Wang MD POINT OF CARE TEST ENTER/ED IT ORDERABLES Final Result * POCT HGB A1C (04/11/2024 9:59 AM EST) Hemoglobin A1C 5.6 4.0 - 6.0 % QC Media Lot # [id number] Lot# Expiration Date [id number], Blood 04/11/2024 9:59 AM EST us Christopher Wang MD POINT OF CARE TEST ENTER/ED IT ORDERABLES Final Result * Influenza A (ID NOW Rapid Molecular) (03/23/2024 9:19 AM EST) Influenza A Negative Negative, Indeterminate [facility] Swab 03/23/2024 9:19 AM EST Luda Armando WINDOWS APPLICATION PACKAGER POINT OF CARE TEST ENTER/EDIT O RDERABLES Final Result Performing Organization Address [facility]/ZIP Co de Phone Number [facility] [address] [place] [phone] * Influenza B (ID NOW Rapid Molecular) (03/23/2024 9:13 AM EST) Pathologist [facility] Influenza B Negative Negative, Indeterminate [facility] Swab 03/23/2024 9:13 AM EST Luda Armando NP POINT OF CARE TEST ENTER/EDIT O RDERABLES Final Result Performing Organization Address [facility] Co de Phone Number [facility] [address] [place] [phone] * POCT Rapid COVID Ag (03/23/2024 9:03 AM EST) Pathologist [facility] Rapid COVID Ag Negative Swab 03/23/2024 9:03 AM EST us Luda Armando NP POINT OF CARE TEST ENTER/EDIT O RDERABLES Final Result * Albumin, Random Urine W/Creatinine (02/03/2023 9:00 AM EST) Pathologist [facility] Creatinine, Urine 176.37 mg/dL [facility] Microalbumin Urine 11.0 mg/L [facility] Microalbum Creatinine Ratio Ur 6.2 <30 ug/mg cr [facility] Comment:Albumin/Creatinine R atio Reference Ranges: Normal: < 30 ug/mg creatinine Microalbuminuria: 30 - 300 ug/mg creatinineClinical Albuminuria: > 300 ug/mg creatinine Urine (Urine, Random) 02/03/2023 9:00 AM EST 02/03/2023 2:19 PM EST us Christopher Wang MD LAB URINE ORDERABLES Final Result Performing Organization Address [facility] Co de Phone Number [facility] [address] [place] [phone] * Lipid Panel, Standard (02/03/2023 8:57 AM EST) Triglycerides 89 <150 mg/dL [facility] Comment:Desirable Triglyceri de: less than 150 mg/dLBorderline High Triglyceride 150-199 mg/dLHigh Triglyceride: 200-499 mg/dLVery High Triglyceride: greater than or equal to 5OO mg/dL Cholesterol 118 <200 mg/dL [facility] Comment:Desirable Cholestero l: less than 200 mg/dLBorderline High Cholesterol: 200-239 mg/dLHigh Cholesterol: greater than 239 mg/dL LDL Cholesterol Calculated 51 <100 mg/dL [facility] Comment:Desirable LDL: less than 100 mg/dLNear Optimal/Above Optimal LDL: 110- 129 mg/dLBorderline High LDL: 130-159 mg/dLHigh LDL: 160-189 mg/dLVery High LDL: greater than or equal to 190 mg/dL HDL Cholesterol 50 >40 mg/dL [facility] Comment:Desirable HDL: great er than 40 mg/dL Note: This HDL assay may give artificially low results in patients with liver disease. Blood Venous blood specimen / Unknown 02/03/2023 8:57 AM EST 02/03/2023 2:20 PM EST us Christopher Wang MD LAB BLOOD ORDERABLES Final Result Performing Organization Address [facility]/ZIP Co de Phone Number [facility] [address] [place] [phone] * HEPATITIS C AB W/REFL TO HCV RNA, QN, PCR (2021 9:35 AM EDT) HEPATITIS C ANTIBODY NON-REACT VERONICA NON-REACT VERONICA [facility] INDEX 0.01 <1.00 [facility] Comment: ?? HCV antibody was non-reactive. There is no laboratory ?? evidence of HCV infection. ?? In most cases, no further action is required. However, if recent HCV exposure is suspected, a test for HCV RNA (test code 08598) is suggested. ?? For additional information please refer to http://education.Dishcrawl/faq/DGM54u7 (This link is being provided for informational/ educational purposes only.) ?? 2021 9:35 AM EDT us Christopher Wang MD HISTORICAL/NON ORDERABLE JENIFER CARRASQUILLO Final Result [facility] [address] from Last 3 Months or Most Recently Relevant to Health Maintenance Insurance MEDICARE REPLACEMENT PPO [facility] ADULT Care Teams Vp Revenue Cycle Relationship Specialty Start Date End Date Christopher Wang MD [address] [place] [phone] PCP - General Internal Medicine 08/23/19
--- OUTSIDE RECORDS SUMMARY | 2024-04-11 11:17 | XMS_ITS | Encounter Summary ---
Author Organization [employer] Address [address] [place] [address] [place] [address] Care Team Providers Care Mason Helper Name Role Phone Christopher Wang MD Primary Care Provider [phone] Reason for Visit * Reason Comments Med Refill Encounter Details Date Type Department Care Team ([facility] st Contact Info) Description 04/07/2022 Refill [facility] [address], [place] [phone] Christopher Wang MD [address] [place] [address] Primary hypertension (Primary Dx); Type 2 diabetes mellitus without complication, without long-term current use of insulin ([facility]); Vitamin B12 deficiency Social History Tobacco Use Types Packs/Day Years [...] Orientation Straight 12/16/2021 10 :15 AM EDT COVID-19 Exposure Response Date Recorded In the last 10 days, have yo u been in contact with someone who was confirmed or suspected to have Coronavirus/COVID-19? No / Unsure 03/11/2022 8:42 AM EST documented as of this encounter Plan of Treatment Upcoming Encounters Date Type Department Care Team (Late st Contact Info) Description 04/20/2024 8:00 AM EST Office Visit [facility] [address] [place] [address] Janay Veliz DMD documented as of this encounter Visit Diagnoses Diagnosis Primary hypertension- Primary Unspecified essential hypertension Type 2 diabetes mellitus without complication, without long-term current use of insulin ([facility]) Vitamin B12 deficiency Other B-complex deficiencies documented in this encounter Additional Health Concerns Assessment Noted Time PHQ-9 Depression Total Score: 0 03/04/19 23 9:18 AM EST documented as of this encounter Care Teams Mason Helper Relationship Specialty Start Date End Date Christopher Wang MD [address] [place] [address] PCP - General Internal Medicine 08/23/19 documented as of this encounter
--- OUTSIDE RECORDS SUMMARY | 2024-04-11 11:17 | XMS_ITS | Encounter Summary ---
Author Organization [employer] Address [address] [place] [address] [place] [address] Care Team Providers Care Telegraphic Typewriter Installer Name Role Phone Christopher Wang MD Primary Care Provider [phone]- [phone] Encounter Details Date Type Department Care Team (Latest Contact Info) Description 12/30/2021 Abstract [facility] CONVERSIONS Dental, Provider, DDS Social History Tobacco Use Types Packs/Day Years [...] Description 04/20/2024 8:00 AM EST Office Visit [facility] ADULT DENTAL [address] [place] [address] Janay Veliz DMD documented as of this encounter Visit Diagnoses Not on filedocumented in this encounter Care Teams Telegraphic Typewriter Installer Relationship Specialty Start Date End Date Christopher Wang MD [address] [place] [address] PCP - General Internal Medicine 08/23/19 documented as of this encounter
--- OUTSIDE RECORDS SUMMARY | 2024-04-11 11:17 | XMS_ITS | Encounter Summary ---
Author Organization [employer] Address [address] [place] [address] 7 [place] [address] Care Team Providers Care Hydraulic Assembler Name Role Phone Christopher Wang MD Primary Care Provider +1- [phone] Encounter Details Date Type Department Care Team (Late st Contact Info) Description 10/14/2022 Abstract [facility] MED & PEDS [address] [place] [address] Jordyn Ham [place] Social History Tobacco Use Types Packs/Day Years [...] [facility] [address] [place] [address] Janay Veliz DMD documented as of this encounter Visit Diagnoses Not on filedocumented in this encounter Additional Health Concerns Assessment Noted Time PHQ-9 Depression Total Score: 0 03/04/19 23 9:18 AM EST documented as of this encounter Care Teams Hydraulic Assembler Relationship Specialty Start Date End Date Christopher Wang MD [address] [place] [phone] PCP - General Internal Medicine 08/23/19 documented as of this encounter
--- OUTSIDE RECORDS SUMMARY | 2024-04-11 11:17 | XMS_ITS | Encounter Summary ---
Author Organization [employer] Address [address] [place] [address] [place] [address] Care Team Providers Care Microsoft Solutions Architect Name Role Phone Christopher Wang MD Primary Care Provider [phone]- [phone] Reason for Visit * Reason Comments Med Refill Encounter Details Date Type Department Care Team ([facility] st Contact Info) Description 04/02/2024 Refill [facility] MED & PEDS [address] [place] [address] Christopher Wang MD [address] [place] [address] Type 2 diabetes mellitus without complication, without long-term current use of insulin ([facility]) Social History Tobacco Use Types Packs/Day Years [...] AM EST Office Visit [facility] ADULT DENTAL [address] [place] [address] Janay Veliz DMD documented as of this encounter Visit Diagnoses Diagnosis Type 2 diabetes mellitus without complication, without long-term current use of insulin ([facility]) documented in this encounter Additional Health Concerns Assessment Noted Time PHQ-9 Depression Total Score: 1 12/24/19 24 1:52 PM EST documented as of this encounter Care Teams Microsoft Solutions Architect Relationship Specialty Start Date End Date Christopher Wang MD [address] [place] [address] PCP - General Internal Medicine 08/23/19 documented as of this encounter
--- OUTSIDE RECORDS SUMMARY | 2024-04-11 11:17 | XMS_ITS ---
Author Organization [facility] Address [address] [place] [address] Care Team Providers Care Food Safety Coordinator Name Role Phone Christopher Wang M.D. Primary Care Provider Un available Rubén Bruce Jr [phone] REASON FOR VISIT pathology Encounters Encounter Location Date Provider Diagnosis [facility] [address] [place] [address] 05/28/2023 Rubén Bruce Jr PLAN OF TREATMENT Next Appt Details Provider Name:Rubén topete Jr, 01/04/2025 10:40:00 AM, [address] [place] [address], [address], [place], [address],
[2024-04-11 15:00] LABS: Cholesterol 128 mg/dL (<200); HDL Cholesterol 57 mg/dL (>40); LDL Cholesterol Calculated 61 mg/dL (<100); Triglycerides 53 mg/dL (<150)
[2024-04-11 15:29] LABS: Creatinine Urine 77.42 mg/dL; Microalbum/Creatinine Ratio Ur 7.7 ug/mg cr (<30)
== END 2024-04-11 10:07 | disposition home or self-care (01) ==
LOC: HO.CHCLDS 10:06
PROVIDERS: Visit Provider Internal Medicine
DX: E11.9 Type 2 diabetes mellitus without complications (principal)
CPT/HCPCS: 36415; 80061; 82043; 82570

== ENCOUNTER 2024-04-18 07:58 | Outpatient (AMB) | payer MEDICAID, SELFPAY ==
--- OUTSIDE RECORDS SUMMARY | 2024-04-18 08:04 | XMS_ITS | Encounter Summary ---
Author Organization [employer] Address [address] [place] [address] [place] [address] Care Team Providers Care Specialty Person Name Role Phone Christopher Wang MD Primary Care Provider [phone]- [phone] Reason for Visit * Reason Comments Med Refill Encounter Details Date Type Department Care Team ([facility] st Contact Info) Description 04/07/2022 Refill [facility] MED & PEDS [address] [place], [place] [phone] Christopher Wang MD [address] [place] [address] Primary hypertension (Primary Dx); Type 2 diabetes mellitus without complication, without long-term current use of insulin ([facility]); Vitamin B12 deficiency Social History Tobacco Use [...] 04/20/2024 8:00 AM EST Office Visit [facility] ADULT DENTAL [address] [place] [address] Janay Veliz DMD documented as of this encounter Visit Diagnoses Diagnosis Primary hypertension- Primary Unspecified essential hypertension Type 2 diabetes mellitus without complication, without long-term current use of insulin ([facility]) Vitamin B12 deficiency Other B-complex deficiencies documented in this encounter Additional Health Concerns Assessment Noted Time PHQ-9 Depression Total Score: 0 03/04/19 23 9:18 AM EST documented as of this encounter Care Teams Specialty Person Relationship Specialty Start Date End Date Christopher Wang MD [address] [place] [address] PCP - General Internal Medicine 08/23/19 documented as of this encounter
--- OUTSIDE RECORDS SUMMARY | 2024-04-18 08:05 | XMS_ITS | Encounter Summary ---
Author Organization [employer] Address [address] [facility] [address] 7 [place] [address] Care Team Providers Care Development Lead Name Role Phone Christopher Wang MD Primary Care Provider +1- [phone] Encounter Details Date Type Department Care Team ([facility] st Contact Info) Description 02/03/2023 Orders Only [facility] MED & PEDS [address] [place] [address] Christopher Wang MD [address] [place] [address] Acquired hypothyroidism (Primary Dx); Type 2 diabetes mellitus without complication, without long-term current use of insulin ([facility]) Social History Tobacco Use Types [...] 04/20/2024 8:00 AM EST Office Visit [facility] ADULT DENT[facility] [address] [place] [address] Janay Veliz DMD documented as of this [...] 9:00 AM EST) Creatinine, Urine 176.37 mg/dL [facility] Microalbumin Urine 11.0 mg/L [facility] Microalbum Creatinine Ratio Ur 6.2 <30 ug/mg cr [facility] Comment:Albumin/Creatinine R atio Reference Ranges: Normal: < 30 ug/mg creatinine Microalbuminuria: 30 - 300 ug/mg creatinineClinical Albuminuria: > 300 ug/mg creatinine Urine (Urine, Random) 02/03/2023 9:00 AM EST 02/03/2023 2:19 PM EST us Christopher Wang MD LAB URINE ORDERABLES Final Result Performing Organization Address [facility] Co de Phone Number [facility] [address] [place] [phone] * TSH W/Reflex to FT4 (02/03/2023 8:57 AM EST) TSH reflex Free T4 1.22 0.32 - 4.0 uIU/mL [facility] Blood Venous blood specimen / Unknown 02/03/2023 8:57 AM EST 02/03/2023 2:20 PM EST us Christopher Wang MD LAB BLOOD ORDERABLES Final Result Performing Organization Address [facility] Co de Phone Number [facility] [address] [place] [phone] * Lipid Panel, Standard (02/03/2023 8:57 AM EST) Triglycerides 89 <150 mg/dL [facility] Comment:Desirable Triglyceri de: less than 150 mg/dLBorderline High Triglyceride 150-199 mg/dLHigh Triglyceride: 200-499 mg/dLVery High Triglyceride: greater than or equal to 5OO mg/dL Cholesterol 118 <200 mg/dL [facility] Comment:Desirable Cholestero l: less than 200 mg/dLBorderline High Cholesterol: 200-239 mg/dLHigh Cholesterol: greater than 239 mg/dL LDL Cholesterol Calculated 51 <100 mg/dL [facility] Comment:Desirable LDL: less than 100 mg/dLNear Optimal/Above Optimal LDL: 110- 129 mg/dLBorderline High LDL: 130-159 mg/dLHigh LDL: 160-189 mg/dLVery High LDL: greater than or equal to 190 mg/dL HDL Cholesterol 50 >40 mg/dL [facility] Comment:Desirable HDL: great er than 40 mg/dL Note: This HDL assay may give artificially low results in patients with liver disease. Blood Venous blood specimen / Unknown 02/03/2023 8:57 AM EST 02/03/2023 2:20 PM EST us Christopher Wang MD LAB BLOOD ORDERABLES Final Result [facility] [address] [place] [phone] * Comprehensive Metabolic Panel (02/03/2023 8:57 AM EST) Sodium 142 135 - 145 mmol/L [facility] Potassium 3.9 3.3 - 5.1 mmol/L [facility] Chloride 108 96 - 108 mmol/L [facility] Carbon Dioxide 25 22 - 29 mmol/L [facility] Anion Gap 13 12 - 20 [facility] Urea Nitrogen (BUN) 13 9 - 16 mg/dL [facility] Creatinine, Serum 0.75 0.5 - 1.4 mg/dL [facility] Estimated Glomerular Filt Rate >60 [facility] Comment:NOTE: For -Am erican individuals, multiply the result by 1.210.Chronic Kidney Disease: Estimated GFR < 60 mL/min/1.02i9Hrymxg Kidney Disease: Estimated GFR < 15 mL/min/1.73m2 Glucose 93 60 - 115 mg/dL [facility] Calcium 9.2 8.4 - 10.2 mg/dL [facility] Bilirubin, Total 0.4 0.0 - 1.0 mg/dL [facility] Aspartate Amino Transferase 19 5 - 37 U/L [facility] Alanine Aminotransferase 15 0 - 40 U/L [facility] Total Protein 7.0 6.5 - 8.0 g/dL [facility] Albumin Level 4.0 3.5 - 5.0 g/dL [facility] Alkaline Phosphatase 77 39 - 117 U/L [facility] Blood Venous blood specimen / Unknown 02/03/2023 8:57 AM EST 02/03/2023 2:20 PM EST Christopher Wang MD LAB BLOOD ORDERABLES Final Result [facility] [address] [place] [phone] documented in this encounter Visit Diagnoses Diagnosis Acquired hypothyroidism- Primary Unspecified hypothyroidism Type 2 diabetes mellitus without complication, without long-term current use of insulin ([facility]) documented in this encounter Additional Health Concerns Assessment Noted Time PHQ-9 Depression Total Score: 0 03/04/19 23 9:18 AM EST documented as of this encounter Care Teams Development Lead Relationship Specialty Start Date End Date Christopher Wang MD [address] [place] [address] PCP - General Internal Medicine 08/23/19 documented as of this encounter
--- OUTSIDE RECORDS SUMMARY | 2024-04-18 08:05 | XMS_ITS | Encounter Summary ---
Author Organization [employer] Address [address] [place] [address] 7 [place] [address] Care Team Providers Care Promotion Writer Name Role Phone Christopher Wang MD Primary Care Provider [phone]- [phone] Encounter Details Date Type Department Care Team (Late st Contact Info) Description 10/14/2022 Abstract [facility] MED & PEDS [address] [place] [address] Jordyn Ham [place] Social History Tobacco Use [...] Description 04/20/2024 8:00 AM EST Office Visit [facility] ADULT DENTAL [address] [place] [address] Janay Veliz DMD documented as of this encounter Visit Diagnoses Not on filedocumented in this encounter Additional Health Concerns Assessment Noted Time PHQ-9 Depression Total Score: 0 03/04/19 23 9:18 AM EST documented as of this encounter Care Teams Promotion Writer Relationship Specialty Start Date End Date Christopher Wang MD [address] [place] [phone] PCP - General Internal Medicine 08/23/19 documented as of this encounter
--- OUTSIDE RECORDS SUMMARY | 2024-04-18 08:05 | XMS_ITS | Encounter Summary ---
Author Organization [employer] Address [address] [facility] 7 [place] [address] Care Team Providers Care Mirror Fabrication Supervisor Name Role Phone Christopher Wang MD Primary Care Provider +1- [phone] Reason for Visit * Reason Onset Date Comments Appointment 04/14/2022 Encounter Details Date Type Department Care Team (Late st Contact Info) Description 04/14/2022 Telephone [facility] ADULT DENTAL [address] [place] [address] Ronal Andrade, DMD [address] [place] [address] Appointment Social History Tobacco Use Types Packs/Day [...] Description 04/20/2024 8:00 AM EST Office Visit [facility] ADULT DENTAL [address] [place] [address] Janay Veliz DMD documented as of this encounter Visit Diagnoses Not on filedocumented in this encounter Additional Health Concerns Assessment Noted Time PHQ-9 Depression Total Score: 0 03/04/19 23 9:18 AM EST documented as of this encounter Care Teams Mirror Fabrication Supervisor Relationship Specialty Start Date End Date Christopher Wang MD [address] [place] [address] PCP - General Internal Medicine 08/23/19 documented as of this encounter
--- OUTSIDE RECORDS SUMMARY | 2024-04-18 08:05 | XMS_ITS ---
Author Organization [facility] Address [address] [place] [address] Care Team Providers Care Acetone Button Paster Name Role Phone Christopher Wang M.D. Primary [...] 800 MG Oral for 30 Active pyRIDostigmine [place] 60 MG TAKE ONE TABLET THREE TIMES [...] Problem Allergy, initial encounter (T78.40XA) Active confirmed [id number] VITAL SIGNS Temperature 97.7 degrees Fahrenheit 01/06/20 24 Blood pressure systolic 00 mm Hg 01/06/20 24 Blood pressure diastolic 00 mm Hg 024 Height 73 in 01/06/2024 Weight 296 lbs 01/06/2024 BMI 39.05 kg/m2 01/06/2024 Encounters Encounter Location Date Provider Diagnosis [facility] [address] [facility] [address] [place] [address] 01/06/2024 Rubén Bruce Jr Gastroesophageal reflux disease [...] Provider Name:Rubén topete Jr, 01/04/2025 10:40:00 AM, [address] [place] [address], [address], [place], [address],
--- OUTSIDE RECORDS SUMMARY | 2024-04-18 08:05 | XMS_ITS | Encounter Summary ---
Author Organization [employer] Address [address] [place] [address] [place] [address] Care Team Providers Care Trades Helper Name Role Phone Christopher Wang MD Primary Care Provider [phone]- [phone] Reason for Visit * Reason Comments Diabetes Hypertension Encounter Details Date Type Department Care Team (Latest Contact Info) Description 04/11/2024 9:15 AM EST Office Visit [facility]S [address] [place], [place] [phone] Christopher Wang MD [address] [place] [address] Primary hypertension (Primary Dx); Acquired hypothyroidism; Type [...] 9:32 AM EST documented in this encounter Progress Notes * Christopher Wang MD - 04/11/2024 9:15 AM EST Subjective Patient ID: Blaine Farris is a 68 y.o. male who presents for Diabetes and Hypertension. Diabetes Pertinent negatives for hypoglycemia include no confusion or headaches. Hypertension Pertinent negatives include no headaches or palpitations. Patient has been compliant to his medication. Denies any episode of hypoglycemia since the last office visit. History of hypertension well-controlled at home. No headache or blurry vision reported. Patient is mostly concerned about his chronic cough. He is currently on benzonatate which provides mild relief. He has noted hoarseness that started about 1 month ago after an infection with COVID-19. Patient Active Problem List Diagnosis Calculus of gallbladder without cholecystitis without obstruction Anxiety Obesity Diabetes mellitus (CMS/HCC) Gastroesophageal reflux disease Diverticulitis of large intestine Hypertension Hypothyroidism Myasthenia gravis (CMS/HCC) Obstructive sleep apnea syndrome Peripheral nerve disease Peripheral venous insufficiency Chest discomfort Cough Current Outpatient Medications on File Prior to Visit Medication Sig Dispense Refill acetaminophen (Tylenol) 500 MG tablet Take 1 tablet (500 mg) by mouth every 6 (six) hours if neededfor mild pain for up to 20 doses. 20 tablet 0 Acetaminophen Extra Strength 500 MG tablet TAKE ONE TABLET EVERY 8 HOURS NEEDED Alcohol Swabs (SM Alcohol Prep) 70 % pads USE EVERY DAY 100 each 3 ammonium lactate (Amlactin) 12 % cream Apply topically if needed for dry skin. 385 g 11 [] amoxicillin (Amoxil) 500 MG capsule Take 1 capsule (500 mg) by mouth every 8 (eight) hours for 7 days. 21 capsule 0 aspirin (Aspirin Low Dose) 81 MG chewable tablet CHEW ONE TABLET EVERY MORNING 90 tablet 3 aspirin 81 MG EC tablet Take 81 mg by mouth. atorvastatin (Lipitor) 40 MG tablet Take 40 mg by mouth. azaTHIOprine (Imuran) 50 MG tablet TAKE ONE TABLET THREE TIME DAILY IN THE MORNING, AT NOON, AND INTHE EVENING b complex vitamins capsule Take 1 capsule by mouth Once per day. 30 capsule 11 Blood Glucose Monitoring Suppl (ONE TOUCH ULTRA 2) w/Device kit Use to check blood sugar TID Calcium + Vitamin D3 600-10 MG-MCG tablet TAKE ONE TABLET IN THE MORNING AND EVENING 180 tablet 3 capsaicin (Zostrix) 0.025 % cream Apply topically 2 times daily. 56.6 g 3 carteolol (Ocupress) 1 % ophthalmic solution Insert 1 drop into both eyes twice daily cetirizine (ZyrTEC) 10 MG tablet TAKE ONE TABLET BY MOUTH ONCE DAILY 90 tablet 0 cholecalciferol (Vitamin D-3) 25 MCG tablet TAKE ONE TABLET DAILY AT NOON 90 tablet 0 cyanocobalamin (Vitamin B-12) 1000 MCG tablet TAKE ONE TABLET EVERY MORNING 30 tablet 5 Diclofenac Sodium 1 % gel To apply to the affected area 3 times a day 100 g 2 dicyclomine (Bentyl) 20 MG tablet TAKE ONE TABLET TWO TO FOUR TIMES DAILY famotidine (Pepcid) 20 MG tablet TAKE ONE TABLET TWICE DAILY IN THE MORNING AND AT BEDTIME 60 tablet 11 fluticasone (Flonase) 50 MCG/ACT nasal spray Administer 1 spray into each nostril 2 times daily. spray 1 spray by intranasal route every day in each nostril 16 g 0 gabapentin (Neurontin) 800 MG tablet TAKE ONE TABLET THREE TIME DAILY IN THE MORNING, AT NOON, AND IN THE EVENING 90 tablet 5 GAS RELIEF 125 MG capsule TAKE ONE CAPSULE THREE TIME DAILY IN THE MORNING, AT NOON, AND IN THE EVENING AFTER MEALS 90 capsule 5 hydroCHLOROthiazide (Microzide) 12.5 MG capsule TAKE ONE CAPSULE EVERY MORNING 90 capsule 3 irbesartan (Avapro) 75 MG tablet Take 75 mg by mouth in the morning. irbesartan-hydroCHLOROthiazide (Avalide) 150-12.5 MG tablet Take 1 tablet by mouth 1 (one) time each day. isosorbide mononitrate ER (Imdur) 30 MG 24 hr tablet Take 30 mg by mouth in the morning. Lancets (OneTouch Delica Plus [id number]) [facility] TEST BLOOD SUGAR THREE TIMES DAILY Lancets Misc. misc To use 2 times a day 100 each 11 metFORMIN XR (Glucophage-XR) 500 MG 24 hr tablet TAKE ONE TABLET EVERY EVENING WITH FOOD 30 tablet 5 metoclopramide (Reglan) 10 MG tablet TAKE ONE TABLET BY MOUTH FOUR TIMES DAILY FOR 10 DAYS 40 tablet 0 naproxen (Naprosyn) 500 MG tablet Take 500 mg by mouth if needed in the morning and at bedtime. Take 500 mg by mouth if needed in the morning and at bedtime. omeprazole (PriLOSEC) [address] capsule TAKE ONE CAPSULE IN THE MORNING AND EVENING 60 capsule 5 Omeprazole 20 MG tablet delayed-release Take 40 mg by mouth Once per day. 60 tablet 11 ProAir HFA 108 (90 Base) MCG/ACT inhaler INHALE TWO puffs FOUR TIMES DAILY pyridostigmine (Mestinon) 60 MG tablet Take 1 tablet by mouth 3 times daily. BID up to TID senna (Senokot) 8.6 MG tablet TAKE ONE TABLET BY MOUTH AT BEDTIME NEEDED FOR CONSTIPATION Simbrinza 1-0.2 % suspension PLACE ONE DROP IN EACH EYE TWICE DAILY simvastatin (Zocor) 40 MG tablet TAKE ONE TABLET EVERY EVENING [DISCONTINUED] benzonatate (Tessalon) 100 MG capsule Take 1 capsule (100 mg) by mouth if needed in the morning, at noon, and at bedtime for cough. Do not crush or chew. 20 capsule 0 [DISCONTINUED] betamethasone valerate (Valisone) 0.1 % ointment Apply topically if needed in the morning and at bedtime (dryness). 45 g 2 [DISCONTINUED] metFORMIN XR (Glucophage-XR) 500 MG 24 hr tablet TAKE ONE TABLET EVERY EVENING WITH FOOD 30 tablet 5 No current facility-administered medications on file prior to visit. No Known Allergies Review of Systems Constitutional: Negative for activity change, appetite change, chills and diaphoresis. HENT: Negative for dental problem, drooling and ear discharge. Eyes: Negative for pain and itching. Respiratory: Negative for cough, choking and chest tightness. Cardiovascular: Negative for palpitations and leg swelling. Gastrointestinal: Negative for abdominal pain, anal bleeding and blood in stool. Endocrine: Negative for cold intolerance and heat intolerance. Genitourinary: Negative for flank pain, frequency and genital sores. Musculoskeletal: Negative for back pain. Neurological: Negative for light-headedness, numbness and headaches. Psychiatric/Behavioral: Negative for agitation, confusion and decreased concentration. Objective BP 138/86 (BP Location: Left arm, Patient Position: Sitting, BP Cuff Size: Adult long) Pulse 64 Temp 97.6 ??F (36.4 ??C) (Oral) Resp 20 Ht 6' 1 (1.854 m) Wt 298 lb (135 kg) SpO2 97% BMI 39.32 kg/m?? Physical Exam Constitutional: General: He is not in acute distress. Appearance: Normal appearance. He is obese. He is not ill-appearing, toxic- appearing or diaphoretic. Cardiovascular: Rate and Rhythm: Normal rate. Heart sounds: No murmur heard. No friction rub. Pulmonary: Effort: Pulmonary effort is normal. No respiratory distress. Breath sounds: No stridor. No wheezing or rhonchi. Neurological: General: No focal deficit present. Mental Status: He is alert. Psychiatric: Mood and Affect: Mood normal. Assessment/Plan Diagnoses and all orders for this visit: Primary hypertension Comments: Stable No change in medication Continue with the DASH diet Acquired hypothyroidism Comments: Stable To continue with the current dose of levothyroxine. Type 2 diabetes mellitus without complication, without long-term current use of insulin ([facility]) Comments: Stable No change in management for now. A1c is at goal. Orders: - POCT Glucose - POCT HGB A1C - Lipid Panel, Standard; Future - Albumin, Random Urine W/Creatinine; Future - Continuous Glucose Clinical Pathologist (FreeStyle Dee Dee 2 [place]) device; Scan sensor every 8 hours - Continuous Glucose Sensor (FreeStyle Dee Dee 2 Sensor) misc; Apply 1 sensor every 14 days - glucose blood test strip; To use once a day Hoarseness of voice Chronic cough Comments: Multifactorial. Possible postnasal drip. Possible allergy component. ENT evaluation given the new onset of the hoarseness. Orders: - benzonatate (Tessalon) 200 MG capsule; Take 1 capsule (200 mg) by mouth if needed in the morning,at noon, and at bedtime for cough for up to 7 days. Do not crush or chew. Papular lichenification Comments: Patient is requesting a refill on his betamethasone. The lesion of the left lower limb have resolved. Some similar lesions of the left buttock and left thigh are noted. Short course of betamethasone recommended. Patient is to contact the office if the lesions are not completely resolved after a week or so. Orders: - betamethasone valerate (Valisone) 0.1 % ointment; Apply topically if needed in the morning and atbedtime (dryness). documented in this encounter Plan of Treatment Upcoming Encounters Date Type Department Care Team (Late st Contact Info) Description 04/20/2024 8:00 AM EST Office Visit [facility] ADULT DENTAL [address] [place] [address] Janay Veliz DMD documented as of this encounter Procedures Procedure Name Priority Date/Time Associated Diagnosis Comments ALBUMIN, RANDOM URINE W/CREATININE Routine 04/11/2024 10:11 AM EST Type 2 diabetes mellitus without complication, without long-term current use of insulin ([facility]) LIPID PANEL, STANDARD Routine 04/11/2024 10:07 AM EST Type 2 diabetes mellitus without complication, without long-term current use of insulin ([facility]) POCT GLUCOSE Routine 04/11/2024 10:01 AM EST Type 2 diabetes mellitus without complication, without long-term current use of insulin ([facility]) POCT GLYCATED HEMOGLOBIN, TOTAL Routine 04/11/2024 9:59 AM EST Type 2 diabetes mellitus without complication, without long-term current use of insulin ([facility]) documented in this encounter Results * Albumin, Random Urine W/Creatinine (04/11/2024 10:11 AM EST) Creatinine, Urine 77.42 mg/dL [facility] Microalbumin Urine 6.0 mg/L [facility] Microalbum Creatinine Ratio Ur 7.7 <30 ug/mg cr [facility] Comment:Albumin/Creatinine R atio Reference Ranges: Normal: < 30 ug/mg creatinine Microalbuminuria: 30 - 300 ug/mg creatinineClinical Albuminuria: > 300 ug/mg creatinine Urine (Urine, Random) 04/11/2024 10:11 AM EST 04/11/2024 2:41 PM EST us Christopher Wang MD LAB URINE ORDERABLES Final Result [facility] [address] [place] [phone] * Lipid Panel, Standard (04/11/2024 10:07 AM EST) Triglycerides 53 <150 mg/dL [facility] Comment:Desirable Triglyceri de: less than 150 mg/dLBorderline High Triglyceride 150-199 mg/dLHigh Triglyceride: 200-499 mg/dLVery High Triglyceride: greater than or equal to 5OO mg/dL Cholesterol 128 <200 mg/dL [facility] Comment:Desirable Cholestero l: less than 200 mg/dLBorderline High Cholesterol: 200-239 mg/dLHigh Cholesterol: greater than 239 mg/dL LDL Cholesterol Calculated 61 <100 mg/dL [facility] Comment:Desirable LDL: less than 100 mg/dLNear Optimal/Above Optimal LDL: 110- 129 mg/dLBorderline High LDL: 130-159 mg/dLHigh LDL: 160-189 mg/dLVery High LDL: greater than or equal to 190 mg/dL HDL Cholesterol 57 >40 mg/dL [facility] Comment:Desirable HDL: great er than 40 mg/dL Note: This HDL assay may give artificially low results in patients with liver disease. Blood Venous blood specimen / Unknown 04/11/2024 10:07 AM EST 04/11/2024 2:41 PM EST us Christopher Wang MD LAB BLOOD ORDERABLES Final Result [facility] [address] [place] [phone] * POCT Glucose (04/11/2024 10:01 AM EST) Glucose Blood, POC 120 60 - 200 mg/dL [employer] Media Lot # [id number] Comment:random Lot# Expiration Date [id number] Blood Capillary blood specimen / Unknown 04/11/2024 10:01 AM EST Christopher Wang MD POINT OF CARE TEST ENTER/ED IT ORDERABLES Final Result * POCT HGB A1C (04/11/2024 9:59 AM EST) Hemoglobin A1C 5.6 4.0 - 6.0 % QC Media Lot # [id number] Lot# Expiration Date [id number] Blood 04/11/2024 9:59 AM EST Christopher Wang MD POINT OF CARE TEST ENTER/ED IT ORDERABLES Final Result documented in this encounter Visit Diagnoses Diagnosis Primary hypertension- Primary Unspecified essential hypertension Acquired hypothyroidism Unspecified hypothyroidism Type 2 diabetes mellitus without complication, without long-term current use of insulin ([facility]) Hoarseness of voice Dysphonia Chronic cough Cough Papular lichenification documented in this encounter Additional Health Concerns Assessment Noted Time PHQ-9 Depression Total Score: 1 12/24/19 24 1:52 PM EST documented as of this encounter Care Teams Trades Helper Relationship Specialty Start Date End Date Christopher Wang MD [address] [place] [phone] PCP - General Internal Medicine 08/23/19 documented as of this encounter
--- OUTSIDE RECORDS SUMMARY | 2024-04-18 08:05 | XMS_ITS | Encounter Summary ---
Author Organization [employer] Address [address] [facility] 7 [place] [address] Care Team Providers Care Chiropractic Neurologist Name Role Phone Christopher Wang MD Primary Care Provider [phone] [phone] Encounter Details Date Type Department Care Team [...] Upcoming Encounters Date Type Department Care Team ([facility] st Contact Info) Description 04/20/2024 8:00 AM EST Office Visit [facility] ADULT D[facility]AL [address] [place] [address] Janay Veliz DMD documented as of this encounter Visit Diagnoses Not on filedocumented in this encounter Additional Health Concerns Assessment Noted Time PHQ-9 Depression Total Score: 1 12/24/19 24 1:52 PM EST documented as of this encounter Care Teams Chiropractic Neurologist Relationship Specialty Start Date End Date Christopher Wang MD [address] [place] [address] PCP - General Internal Medicine 08/23/19 documented as of this encounter
--- OUTSIDE RECORDS SUMMARY | 2024-04-18 08:05 | XMS_ITS | Encounter Summary ---
Author Organization [employer] Address [address] [place] [address] [place] [address] Care Team Providers Care Neonatal Pediatric Nurse Name Role Phone Christopher Wang MD Primary Care Provider [phone]- [phone] Reason for Visit * Reason Comments Med Refill Encounter Details Date Type Department Care Team ([facility] st Contact Info) Description 04/02/2024 Refill [facility] [address] [place] [address] Christopher Wang MD [address] [place] [address] Type 2 diabetes mellitus without complication, without long-term current use of insulin ([facility]) Social History Tobacco Use Types [...] Description 04/20/2024 8:00 AM EST Office Visit [facility] [address] [place] [address] Janay Veliz DMD documented as of this encounter Visit Diagnoses Diagnosis Type 2 diabetes mellitus without complication, without long-term current use of insulin ([facility]) documented in this encounter Additional Health Concerns Assessment Noted Time PHQ-9 Depression Total Score: 1 12/24/19 24 1:52 PM EST documented as of this encounter Care Teams Neonatal Pediatric Nurse Relationship Specialty Start Date End Date Christopher Wang MD [address] [place] [address] PCP - General Internal Medicine 08/23/19 documented as of this encounter
--- OUTSIDE RECORDS SUMMARY | 2024-04-18 08:05 | XMS_ITS | Encounter Summary ---
Author Organization [employer] Address [address] [facility] 7 [place] [address] Care Team Providers Care Maintenance Electrician Name Role Phone Christopher Wang MD Primary Care Provider +1 [phone] Encounter Details Date Type Department Care Team [...] Upcoming Encounters Date Type Department Care Team ([facility] st Contact Info) Description 04/20/2024 8:00 AM EST Office Visit [facility] ADULT DENTAL [address] [place] [address] Janay Veliz DMD documented as of this encounter Visit Diagnoses Not on filedocumented in this encounter Additional Health Concerns Assessment Noted Time PHQ-9 Depression Total Score: 1 12/24/19 24 1:52 PM EST documented as of this encounter Care Teams Maintenance Electrician Relationship Specialty Start Date End Date Christopher Wang MD [address] [place] [address] PCP - General Internal Medicine 08/23/19 documented as of this encounter
--- OUTSIDE RECORDS SUMMARY | 2024-04-18 08:05 | XMS_ITS | Encounter Summary ---
Author Organization [employer] Address [address] [place] [address] Care Team Providers Care Property Disposal Officer Name Role Phone Christopher Wang MD Primary Care Provider [phone]- [phone] Reason for Visit * Reason Comments Med Refill Encounter Details Date Type Department Care Team ([facility] st Contact Info) Description 04/15/2024 Refill [facility] [address] [place] [address] Christopher Wang MD [address] [place] [address] Social History Tobacco Use Types Packs/Day Years [...] 8:00 AM EST Office Visit [facility] ADULT DENT[facility] [address] [place] [address] Janay Veliz DMD documented as of this encounter Visit Diagnoses Not on filedocumented in this encounter Additional Health Concerns Assessment Noted Time PHQ-9 Depression Total Score: 1 12/24/19 24 1:52 PM EST documented as of this encounter Care Teams Property Disposal Officer Relationship Specialty Start Date End Date Christopher Wang MD [address] [place] [address] PCP - General Internal Medicine 08/23/19 documented as of this encounter
--- OUTSIDE RECORDS SUMMARY | 2024-04-18 08:05 | XMS_ITS | Patient Health Record ---
Author Organization [facility] Address [address] [place] [address] Care Team Providers Care Methodologist Name Role Phone Christopher Wang M.D. Primary Care Provider Un available Rubén Bruce Jr Unavailable [phone] ALLERGIES No Known Allergies RESULTS Component Value Reference Range Notes Glucose, Whole Blood Reviewed date:05/15/2023 03:49:06 PM Interpretation: Performing Lab:[facility], [address] [place] [phone] Notes/Report: Glucose, Whole Blood 83 60-115 mg/dL METER # : [id number] Pathology Reviewed date:05/28/2023 11:10:39 AM Interpretation: Performing Lab:[facility], [address] [place] [phone] Notes/Report: Glucose, Whole Blood Reviewed date:05/15/2023 03:49:01 PM Interpretation: Performing Lab:[facility], [address] [place] [phone] Notes/Report: Glucose, Whole Blood 84 60-115 mg/dL METER # : [id number] REASON FOR REFERRAL No Information MEDICATIONS Medication [...] 800 MG Oral for 30 Active pyRIDostigmine [place] 60 MG TAKE ONE TABLET THREE TIMES [...] confirmed Gastro-esophag eal reflux disease without esophagitis (611023531) Problem Periumbilical pain (R10.33) Active confirmed 342928497 Problem Gastroesophageal reflux disease without esophagitis (K21.9) Active confirmed 223210037 Problem Abnormal barium swallow (R93.3) Active confirmed 066396029 Problem LUQ pain (R10.12) Active confirmed 3017 77665 Problem Gas bloat syndrome (K92.89) Active confirmed 683904532 Problem Allergy, initial encounter (T78.40XA) Active confirmed 915983836 VITAL SIGNS Temperature 97.7 degrees Fahrenheit 01/06/2024 Blood pressure diastolic 00 mm Hg 01/06/2024 Height 73 in 01/06/2024 Blood pressure systolic 00 mm Hg 01/06/2024 Weight 296 lbs 01/06/2024 BMI 39.05 kg/m2 01/06/2024 Encounters Encounter Location Date Provider Diagnosis [facility] [address] [place] [phone] 05/15/2023 Rubén Bruce Jr Abnormal CT scan, esophagus R93.3 ; Gastro-esophageal reflux disease without esophagitis K21.9 and Other dysphagia R13.19 [facility] [address] [facility] [place] [address] 05/07/2023 Rubén Bruce Jr Abnormal barium swallow R93.3 and Gastroesophageal reflux disease without esophagitis K21.9 [facility] [address] [facility] [place] [address] 01/06/2024 Rubén Bruce Jr Gastroesophageal reflux disease without esophagitis K21.9 ; Abnormal barium swallow R93.3 and Allergy, initial encounter T78.40XA [facility] [address] [facility] [place] [address] 05/11/2023 Rubén Bruce Jr Gas bloat syndrome K92.89 [facility] [address] [place] [phone] 05/13/[address] [facility] [address] [place] [phone] 05/13/[address] [facility] [address] [place] [phone] 05/28/2023 Rubén Bruce Jr [facility] [address] [place] [phone] 09/21/2023 Rubén Bruce Jr ASSESSMENTS Encounter Date [...] Provider Name:Rubén topete Jr, 01/04/2025 10:40:00 AM, [address] [place] [address], [address], [place], [address], Insurance Providers Payer Name Payer Address Payer Phone Subscriber Number Group Number Insured Name Patient Relationship to Insured Coverage Start Date Coverage End Date [facility] [address] [place] [phone] [id number] ANAIS JAEGER Self - patient is the [...]
--- OUTSIDE RECORDS SUMMARY | 2024-04-18 08:05 | XMS_ITS | Clinical Summary ---
Author Organization [employer] Address [address] [place] [address] 7 [place] [address] Care Team Providers Care Telephone Order Dispatcher Name Role Phone Christopher Wang MD Primary Care Provider +1- [phone] Allergies No known active allergies Medications Acetaminophen [...] MG tablet TAKE ONE TABLET EVERY EVENING Active omeprazole (PriLOSEC) [address] capsule TAKE ONE CAPSULE IN THE MORNING AND EVENING 60 capsule 5 023 Active Lancets Misc. miscIndications:Ty pe 2 diabetes mellitus without complication, without long-term current use of insulin (CMS/[facility], [facility]) To use 2 times a day 100 each 11 023 Active Blood Glucose Monitoring Suppl (ONE TOUCH ULTRA 2) w/Device kit Use to check blood sugar TID Active isosorbide mononitrate ER (Imdur) 30 MG 24 hr tablet Take 30 mg by mouth in the morning. 023 Active Lancets (OneTouch Delica Plus [id number]) misc TEST BLOOD SUGAR THREE TIMES DAILY Active atorvastatin (Lipitor) 40 MG tablet Take [...] complication, without long-term current use of insulin (CMS/[facility]) Apply topically 2 times daily. 56.6 g 3 024 2024 Active ammonium lactate (Amlactin) 12 % creamIndications:D ry skin Apply topically if needed for dry skin. 385 g 024 2024 Active Omeprazole 20 MG tablet [...] complication, without long-term current use of insulin (CMS/HCC),Peripher al nerve disease Take 1 capsule by [...] 025 Active fluticasone (Flonase) 50 MCG/ACT nasal sprayIndications:Luli russell in adult patient Administer 1 spray into [...] without long-term current use of insulin (CMS/HCC) TAKE ONE TABLET EVERY EVENING WITH FOOD 30 tablet 5 025 Active benzonatate (Tessalon) 200 MG capsuleIndications :Chronic cough Take 1 capsule (200 mg) by mouth if needed in the morning, at noon, and at bedtime for cough for up to 7 days. Do not crush or chew. 20 capsule 025 2024 Active Continuous Glucose Mass Spectrometry Manager (FreeStyle Dee Dee 2 [place]) deviceIndications: Type 2 diabetes mellitus without complication, without long-term current use of insulin ([facility], [facility]) Scan sensor every 8 hours 1 each Active Continuous Glucose Sensor (FreeStyle Dee Dee 2 Sensor) miscIndications:Ty pe 2 diabetes mellitus without complication, without long-term current use of insulin ([facility], [facility]) Apply 1 sensor every 14 days 2 each Active glucose blood test stripIndications:T ype 2 diabetes mellitus without complication, without long-term current use of insulin ([facility]) To use once a day 100 each 12 025 2025 Active betamethasone valerate (Valisone) 0.1 % ointmentIndication s:Papular lichenification Apply topically if needed in the morning and at bedtime (dryness). 45 g 2 025 Active irbesartan (Avapro) 75 MG tablet TAKE ONE TABLET EVERY MORNING 90 tablet 025 Active fluticasone (Flonase) 50 MCG/ACT nasal spray spray 1 spray by intranasal route every day in each nostril 020 2024 Discontinued(R eorder (will not trigger notification to Pharmacy)) irbesartan (Avapro) 75 MG tablet Take 75 mg by mouth in the morning. 023 2024 Discontinued metFORMIN XR (Glucophage-XR) 500 MG 24 hr tabletIndications: Type 2 diabetes mellitus without complication, without long-term current use of insulin ([facility]) TAKE ONE TABLET EVERY EVENING WITH FOOD [...] Encounters Date Type Department Care Team Description 04/15/[address] [facility] MED[facility] [address] [place] [address] Christopher Wang MD 04/11/2024 9:15 AM EST Office Visit [facility] [address] [place] [address] Christopher Wang MD Primary hypertension (Primary Dx); Acquired hypothyroidism; Type 2 diabetes mellitus without complication, without long-term current use of insulin ([facility]); Hoarseness of voice; Chronic cough; Papular lichenification 04/11/2024 Travel 04/08/2024 Telephone [facility] [address] [place] [address] Christopher Wang MD CHART PREP 04/02/2024 Refill [facility] [address] [place] [address] Christopher Wang MD Type 2 diabetes mellitus without complication, without long-term current use of insulin ([facility]/HCC) 03/30/2024 9:00 AM EST Office Visit [facility] ADULT DENTAL [address] [place] [address] Janay Veliz DMD 03/23/2024 9:00 AM EST Office Visit [facility] [address] [place] [address] Luda Armando NP Cough in adult patient; Chronic cough 03/23/2024 Travel 03/08/[address] [facility] MED[facility]INE [address] [place] [address] Christopher Wang MD 03/02/[address] [facility] MED & PEDS [address] [place] [address] Christopher Wang MD Vitamin B12 deficiency 02/29/[address] [facility] [address] [place] [address] Christopher Wang MD Nurse Triage 02/28/[address] [facility] MED & PEDS [address] [place] [address] Christopher Wang MD Peripheral nerve disease 01/29/[address] [facility] MED & PEDS [address] [place] [address] Christopher Wang MD Essential hypertension from Last [...] Description 04/20/2024 8:00 AM EST Office Visit [facility] ADULT DENTAL [address] [place] [address] Janay Veliz DMD Health Maintenance Due Date Last Done Comments CT Colonography 1957 FIT DNA/Cologuard 1957 FIT 1957 FOBT 1957 Sigmoidoscopy 1957 Hepatitis A Vaccines (1 of 2 - Risk 2-dose series) 1976 RSV Patients and Patients Aged 60 years or older (1 - Risk 60-74 years 1-dose series) 2017 Hepatitis B Vaccines (2 of 3 - Risk 3-dose series) 09/24/2023 08/27/2023 COVID-19 Vaccine ( season) 2023 04/18/2022, 01/15/2021, 05/16/2020, Additional history exists Dental Oral Exam 05/27/2024 [...] 12/23/2024 12/24/2023, 12/24/19 Tobacco Screening 03/30/2025 03/30/2024 Diabetes: Urine Protein Screening 04/11/2025 04/11/2024, 02/03/2023, 12/10/2021, Additional history exists Lipid Panel 04/11/2025 04/11/2024, 01/16, 12/10/2021, Additional history exists Colonoscopy 02/23/2027 Colorectal Cancer Screening 02/23/2027 Dental X-Ray: Full Mouth 03/31/2027 025, 12/03/2021, 04/24/2014 DTaP/Tdap/Td Vaccines (2 - Td or Tdap) 06/25/2031 2021, 07/27/2014 Hepatitis C Screening Completed 2021 Pneumococcal Vaccine: 50+ Years Completed 08/27/2023, 02/06/2020 Influenza Vaccine Completed 11/09/2023, , 11/16/2021, Additional history exists Zoster Vaccines Completed 04/11/2024, 01/14/2021 HIB Vaccines Aged Out No longer eligi [...] complication, without long-term current use of insulin ([facility]/HCC) LIPID PANEL, STANDARD Routine 04/11/2024 10:07 AM EST Type 2 diabetes mellitus without complication, without long-term current use of insulin (CMS/HCC) POCT GLUCOSE Routine 04/11/2024 10:01 AM EST Type 2 diabetes mellitus without complication, without long-term current use of insulin (CMS/[facility]) POCT GLYCATED HEMOGLOBIN, TOTAL Routine 04/11/2024 9:59 AM EST Type 2 diabetes mellitus without complication, without long-term current use of insulin ([facility]) PANORAMIC RADIOGRAPHIC IMAGE Routine 03/30/2024 9:00 AM [...] ESTABLISHED PATIENT Routine 11/26/2023 8:00 AM EDT ZZZ HISTORICAL HEPATITIS C AB W/REFL TO HCV RNA, QN, PCR Routine 2021 9:35 AM EDT from Last 3 Months or Most Recently Relevant to Health Maintenance Results * Albumin, Random Urine W/Creatinine (04/11/2024 10:11 AM EST) Creatinine, Urine 77.42 mg/dL [facility] Microalbumin Urine 6.0 mg/L H [facility] Microalbum Creatinine Ratio Ur 7.7 <30 ug/mg cr [facility] Comment:Albumin/Creatinine R atio Reference Ranges: Normal: < 30 ug/mg creatinine Microalbuminuria: 30 - 300 ug/mg creatinineClinical Albuminuria: > 300 ug/mg creatinine Urine (Urine, Random) 04/11/2024 10:11 AM EST 04/11/2024 2:41 PM EST us Christopher Wang MD LAB URINE ORDERABLES Final Result Performing Organization Address [facility]/ZIP Co de Phone Number [facility] [address] [place] [phone] * Lipid Panel, Standard (04/11/2024 10:07 AM EST) Triglycerides 53 <150 mg/dL [facility] Comment:Desirable Triglyceri de: less than 150 mg/dLBorderline High Triglyceride 150-199 mg/dLHigh Triglyceride: 200-499 mg/dLVery High Triglyceride: greater than or equal to 5OO mg/dL Cholesterol 128 <200 mg/dL [facility] Comment:Desirable Cholestero l: less than 200 mg/dLBorderline High Cholesterol: 200-239 mg/dLHigh Cholesterol: greater than 239 mg/dL LDL Cholesterol Calculated 61 <100 mg/dL [facility] Comment:Desirable LDL: less than 100 mg/dLNear Optimal/Above Optimal LDL: 110- 129 mg/dLBorderline High LDL: 130-159 mg/dLHigh LDL: 160-189 mg/dLVery High LDL: greater than or equal to 190 mg/dL HDL Cholesterol 57 >40 mg/dL [facility] Comment:Desirable HDL: great er than 40 mg/dL Note: This HDL assay may give artificially low results in patients with liver disease. Blood Venous blood specimen / Unknown 04/11/2024 10:07 AM EST 04/11/2024 2:41 PM EST us Christopher Wang MD LAB BLOOD ORDERABLES Final Result Performing Organization Address City/[facility]/ZIP Co de Phone Number [facility] [address] [place] [address] [phone] * POCT Glucose (04/11/2024 10:01 AM EST) Glucose Blood, POC 120 60 - 200 mg/dL QC Media Lot # [id number] Comment:random Lot# Expiration Date 48 Blood Capillary blood specimen / Unknown 04/11/2024 10:01 AM EST us Christopher Wang MD POINT OF CARE TEST ENTER/ED IT ORDERABLES Final Result * POCT HGB A1C (04/11/2024 9:59 AM EST) [facility] Hemoglobin A1C 5.6 4.0 - 6.0 % QC Media Lot # [id number] Lot# Expiration Date [id number] Blood 04/11/2024 9:59 AM EST us Christopher Wang MD POINT OF CARE TEST ENTER/ED IT ORDERABLES Final Result * Influenza A (ID NOW Rapid Molecular) (03/23/2024 9:19 AM EST) [facility] Influenza A Negative Negative, Indeterminate [facility] Swab 03/23/2024 9:19 AM EST Luda Armando NP POINT OF CARE TEST ENTER/EDIT O RDERABLES Final Result Performing Organization Address [facility] Co de Phone Number [facility] [address] [place] [phone] * Influenza B (ID NOW Rapid Molecular) (03/23/2024 9:13 AM EST) [facility] Influenza B Negative Negative, Indeterminate [facility] Swab 03/23/2024 9:13 AM EST Luda Armando NP POINT OF CARE TEST ENTER/EDIT O RDERABLES Final Result Performing Organization Address [facility] Co de Phone Number [facility] [address] [place] [phone] * POCT Rapid COVID Ag (03/23/2024 9:03 AM EST) Rapid COVID Ag Negative Swab 03/23/2024 9:03 AM EST Luda Armando NP POINT OF CARE TEST ENTER/EDIT O RDERABLES Final Result * HEPATITIS C AB W/REFL TO HCV [...] a test for HCV RNA (test code 71855) is suggested. ?? For additional information please refer to http://soup.me.Brevity/faq/MZW78x7 (This link is being provided for informational/ educational purposes only.) ?? 2021 9:35 AM EDT Christopher Wang MD HISTORICAL/NON ORDERABLE JENIFER CARRASQUILLO Final Result Performing Organization Address City/State/[facility] Co de Phone Number [facility] [address] from Last 3 Months or Most Recently Relevant to Health Maintenance Insurance MEDICARE REPLACEMENT PPO [facility] MEDICAID STAND ADULT Care Teams Telephone Order Dispatcher Relationship Specialty Start Date End Date Christopher Wang MD [address] [place] [phone] PCP - General Internal Medicine 08/23/19
--- OUTSIDE RECORDS SUMMARY | 2024-04-18 08:05 | XMS_ITS | Encounter Summary ---
Author Organization [employer] Address [address] [facility] 7 [place] [address] Care Team Providers Care Home Comfort Advisor Name Role Phone Christopher Wang MD Primary Care Provider [phone] Reason for Visit * Reason Comments Extraction #[id number], 32 Encounter Details Date Type Department Care Team ([facility] Contact Info) Description 03/30/2024 9:00 AM EST Office Visit [facility] AD[facility] [address] [place] [address] Janay Veliz DMD Social History Tobacco Use [...] y.o. male. Time Out: Date: 03/30/2024 Location: [facility] Tooth: #32 Procedure: Extraction Verified the above with patient, refinery operator assistant, and provider. Confirmed via patient's chart, intraorally and by radiographs. Envelope Addresser: not applicable Simple Extraction of #32 done [...] EXT #17 Provider: Dr. Janay Veliz DMD Call Center Director: Shazia Mercedes Supervising Dentist: Dr. Ronal Andrade [...] 8:00 AM EST Office Visit [facility] AD[facility] [address] [place] [address] Janay Veliz DMD Scheduled Orders Name Type [...] documented as of this encounter Care Teams Home Comfort Advisor Relationship Specialty Start Date End Date Christopher Wang MD [address] [place] [phone] PCP - General Internal Medicine 08/23/19 documented as of this encounter
--- OUTSIDE RECORDS SUMMARY | 2024-04-18 08:05 | XMS_ITS | Encounter Summary ---
Author Organization [employer] Address [address] [facility] 7 [place] [address] Care Team Providers Care Carding Doubler Name Role Phone Christopher Wang MD Primary Care Provider [phone]- [phone] Reason for Visit * Reason Comments Cough Encounter Details Date Type Department Care Team (Late st Contact Info) Description 03/23/2024 9:00 AM EST Office Visit [facility] [address] [place] [address] Luda Armando NP [address] [place] [address] Cough in adult patient; Chronic cough Social [...] male who presents to the [facility] [place] for a sick visit. Denies recent illness, [...] cholecystitis without obstruction Anxiety Obesity Diabetes mellitus ([facility]) Gastroesophageal reflux disease Diverticulitis of large intestine Hypertension Hypothyroidism Myasthenia gravis ([facility]) Obstructive sleep apnea syndrome Peripheral nerve disease [...] Description 04/20/2024 8:00 AM EST Office Visit [facility] ADULT DENT[facility] [address] [place] [address] Janay Veliz DMD documented as of this [...] Rapid Molecular) (03/23/2024 9:19 AM EST) Pathologist [facility] Influenza A Negative Negative, Indeterminate [facility] Swab 03/23/2024 9:19 AM EST us Luda Armando PHOTOCOPYING MACHINE OPERATOR POINT OF CARE TEST ENTER/EDIT O RDERABLES Final Result Performing Organization Address City/[facility]/ZIP Co de Phone Number [facility] [address] [place] [phone] * Influenza B (ID NOW Rapid Molecular) (03/23/2024 9:13 AM EST) Pathologist [facility] Influenza B Negative Negative, Indeterminate [facility] Swab 03/23/2024 9:13 AM EST us Lares Josselinem PHOTOCOPYING MACHINE OPERATOR POINT OF CARE TEST ENTER/EDIT O RDERABLES Final Result Performing Organization Address City/[facility] Co de Phone Number [facility] [address] [place] [phone] * POCT Rapid COVID Ag (03/23/2024 9:03 AM EST) Pathologist [facility] Rapid COVID Ag Negative Swab 03/23/2024 9:03 AM EST us Luda Armando PHOTOCOPYING MACHINE OPERATOR POINT OF CARE TEST ENTER/EDIT O RDERABLES Final Result documented in this encounter Visit Diagnoses Diagnosis Cough in adult patient Chronic cough Cough documented in this encounter Additional Health Concerns Assessment Noted Time PHQ-9 Depression Total Score: 1 12/24/19 24 1:52 PM EST documented as of this encounter Care Teams Carding Doubler Relationship Specialty Start Date End Date Christopher Wang MD [address] [place] [phone] PCP - General Internal Medicine 08/23/19 documented as of this encounter
--- OUTSIDE RECORDS SUMMARY | 2024-04-18 08:05 | XMS_ITS | Encounter Summary ---
Author Organization [employer] Address [address] [place] [address] [place] [address] Care Team Providers Care Sorter Lumber Straightener Name Role Phone Christopher Wang MD Primary Care Provider [phone]- [phone] Reason for Visit * Reason Onset Date Comments CHART PREP 04/08/2024 Encounter Details Date Type Department Care Team ([facility] Contact Info) Description 04/08/2024 Telephone [facility] MED & PEDS [address] [place] [address] Christopher Wang MD [address] [place] [address] CHART PREP Social History Tobacco Use Types [...] Description 04/20/2024 8:00 AM EST Office Visit [facility] ADULT DENTAL [address] [place] [address] Janay Veliz DMD documented as of this encounter Visit Diagnoses Not on filedocumented in this encounter Additional Health Concerns Assessment Noted Time PHQ-9 Depression Total Score: 1 12/24/19 24 1:52 PM EST documented as of this encounter Care Teams Sorter Lumber Straightener Relationship Specialty Start Date End Date Christopher Wang MD [address] [place] [phone] PCP - General Internal Medicine 08/23/19 documented as of this encounter
--- OUTSIDE RECORDS SUMMARY | 2024-04-18 08:06 | XMS_ITS | Encounter Summary ---
Author Organization [employer] Address [address] [place] [address] [place] [address] Care Team Providers Care Pathologist Assistant Name Role Phone Christopher Wang MD Primary Care Provider +1- [phone] Encounter Details Date Type Department Care Team (Latest Contact Info) Description 12/30/2021 Abstract [facility] CONVERSIONS Dental, Provider, DDS Social History [...] 04/20/2024 8:00 AM EST Office Visit [facility] ADULT DENTAL [address] [place] [address] Janay Veliz DMD documented as of this encounter Visit Diagnoses Not on filedocumented in this encounter Care Teams Pathologist Assistant Relationship Specialty Start Date End Date Christopher Wang MD [address] [place] [address] PCP - General Internal Medicine 08/23/19 documented as of this encounter
--- OUTSIDE RECORDS SUMMARY | 2024-04-18 08:06 | XMS_ITS | Encounter Summary ---
Author Organization [employer] Address [address] [facility] 7 [place] [address] Care Team Providers Care Franchise Sales Director Name Role Phone Christopher Wang MD Primary Care Provider +1- [phone] Encounter Details Date Type Department Care Team ([facility] st Contact Info) Description 10/23/2023 Orders Only [facility] MED & PEDS [address] [place], [place] [phone] Christopehr Wang MD [address] [place] [address] Bloating symptom Social History Tobacco Use Types [...] Description 04/20/2024 8:00 AM EST Office Visit [facility] CH[facility] ADULT DENTAL [address] [place] [address] Janay Veliz DMD documented as of this encounter Visit Diagnoses Diagnosis Bloating symptom Flatulence, eructation, and gas pain documented in this encounter Additional Health Concerns Assessment Noted Time PHQ-9 Depression Total Score: 0 03/04/19 23 9:18 AM EST documented as of this encounter Care Teams Franchise Sales Director Relationship Specialty Start Date End Date Christopher Wang MD [address] [place] [address] PCP - General Internal Medicine 08/23/19 documented as of this encounter
--- OUTSIDE RECORDS SUMMARY | 2024-04-18 08:06 | XMS_ITS | Encounter Summary ---
Author Organization [employer] Address [address] [place] [address] [place] [address] Care Team Providers Care Line Assigner Name Role Phone Christopher Wang MD Primary Care Provider +1- [phone] Reason for Visit * Reason Comments Med Refill Encounter Details Date Type Department Care Team ([facility] st Contact Info) Description 10/23/2023 Refill [facility] MED & PEDS [address] [place], [place] [phone] Christopher Wang MD [address] [place] [address] Bloating symptom Social History Tobacco Use Types [...] Upcoming Encounters Date Type Department Care Team ([facility] st Contact Info) Description 04/20/2024 8:00 AM EST Office Visit [facility] ADULT DENTAL [address] [place] [address] Janay Veliz DMD documented as of this encounter Visit Diagnoses Diagnosis Bloating symptom Flatulence, eructation, and gas pain documented in this encounter Additional Health Concerns Assessment Noted Time PHQ-9 Depression Total Score: 0 03/04/19 23 9:18 AM EST documented as of this encounter Care Teams Line Assigner Relationship Specialty Start Date End Date Christopher Wang MD [address] [place] [address] PCP - General Internal Medicine 08/23/19 documented as of this encounter
--- OUTSIDE RECORDS SUMMARY | 2024-04-18 08:06 | XMS_ITS | Encounter Summary ---
Author Organization [employer] Address [address] [facility] 7 [place] [address] Care Team Providers Care Labor Conciliator Name Role Phone Christopher Wang MD Primary Care Provider [phone]- [phone] Encounter Details Date Type Department Care Team ([facility] st Contact Info) Description 09/29/2023 Orders Only [facility] CHC MED & PEDS [address] [place], [place] [phone] Christopher Wang MD [address] [place] [address] Gastroesophageal reflux disease, unspecified whether esophagitis present [...] Upcoming Encounters Date Type Department Care Team ([facility] st Contact Info) Description 04/20/2024 8:00 AM EST Office Visit [facility] ADULT DENT[facility] [address] [place] [address] Janay Veliz DMD documented as of this encounter Visit Diagnoses Diagnosis Gastroesophageal reflux disease, unspecified whether esophagitis present- Primary documented in this encounter Additional Health Concerns Assessment Noted Time PHQ-9 Depression Total Score: 0 03/04/19 23 9:18 AM EST documented as of this encounter Care Teams Labor Conciliator Relationship Specialty Start Date End Date Christopher Wang MD [address] [place] [address] PCP - General Internal Medicine 08/23/19 documented as of this encounter
--- OUTSIDE RECORDS SUMMARY | 2024-04-18 08:06 | XMS_ITS | Encounter Summary ---
Author Organization [employer] Address [address] [place] [address] 7 [place] [address] Care Team Providers Care Sales Recruiting Coordinator Name Role Phone Christopher Wang MD Primary Care Provider +1 [phone] Reason for Referral * Consultation (Routine) - Closed Specialty Diagnoses / Procedures Referred By Contac t Referred To Contact Audiology Diagnoses Subjective hearing loss Terri Medellin MD [address] [place] [address] Phone: tel: fax: [facility] Audiology [address] 1st Floor [place], [place] Phone: tel: fax: Referral ID Status Reason Start Date Expiration Date V isits Requested Visits Authorized [id number] Closed Specialty Services Required 11/12/2023 11/11/2024 1 1 Encounter Details Date Type Department Care Team (Late st Contact Info) Description 11/12/2023 Orders Only [facility] CH[facility] MED & PEDS [address] [place], [place] [phone] Terri Medellin MD [address] [place], [place] [phone] Subjective hearing loss (Primary Dx) Social History [...] Description 04/20/2024 8:00 AM EST Office Visit [facility] ADULT DENTAL [address] [place] [address] Janay Veliz DMD Scheduled Referrals Name Type [...] documented as of this encounter Care Teams Sales Recruiting Coordinator Relationship Specialty Start Date End Date Christopher Wang MD [address] [place] [address] PCP - General Internal Medicine 08/23/19 documented as of this encounter
--- OUTSIDE RECORDS SUMMARY | 2024-04-18 08:06 | XMS_ITS | Encounter Summary ---
Author Organization [employer] Address [address] [place] [address] Care Team Providers Care Airframe And Powerplant Mechanic Name Role Phone Christopher Wang MD Primary Care Provider [phone]- [phone] Reason for Visit * Reason Onset Date Comments Med Refill 10/22/2023 Encounter Details Date Type Department Care Team (Late st Contact Info) Description 10/22/2023 Telephone [facility] MEDICINE [address] [place] [address] Christopher Wang MD [address] [place] [address] Med Refill Social History Tobacco Use Types [...] 10 MG tablet To be sent to: [facility] - [place], [place] - [address] documented in this encounter Plan of Treatment Upcoming Encounters Date Type Department Care Team (Late st Contact Info) Description 04/20/2024 8:00 AM EST Office Visit [facility] ADULT DENTAL [address] [place] [address] Janay Veliz DMD documented as of this encounter Visit Diagnoses Not on filedocumented in this encounter Additional Health Concerns Assessment Noted Time PHQ-9 Depression Total Score: 0 03/04/19 23 9:18 AM EST documented as of this encounter Care Teams Airframe And Powerplant Mechanic Relationship Specialty Start Date End Date Christopher Wang MD [address] [place] [address] PCP - General Internal Medicine 08/23/19 documented as of this encounter
--- OUTSIDE RECORDS SUMMARY | 2024-04-18 08:06 | XMS_ITS ---
Author Organization [facility] Address [address] [place] [address] Care Team Providers Care Binder Cutter Name Role Phone Christopher Wang M.D. Primary Care Provider Un available Rubén Bruce Jr REASON FOR VISIT pathology Encounters Encounter Location Date Provider Diagnosis [facility] [address] [place] [address] 05/28/2023 Rubén Bruce Jr PLAN OF TREATMENT Next Appt Details Provider Name:Rubén topete Jr, 01/04/2025 10:40:00 AM, [address] [place] [address], [address], [place], [address],
--- OUTSIDE RECORDS SUMMARY | 2024-04-18 08:06 | XMS_ITS | Encounter Summary ---
Author Organization [employer] Address [address] [facility] 7 [place] [address] Care Team Providers Care X Ray Service Technician Name Role Phone Christopher Wang MD Primary Care Provider [phone]- [phone] Encounter Details Date Type Department Care Team ([facility] st Contact Info) Description 06/10/2023 Orders Only [facility] CHC MED & PEDS [address] [place], [place] [phone] Christopher Wang MD [address] [place] [address] Social History Tobacco Use Types Packs/Day Years [...] AM EST Office Visit [facility] [address] [place] [address] Janay Veliz DMD documented as of this encounter Visit Diagnoses Not on filedocumented in this encounter Additional Health Concerns Assessment Noted Time PHQ-9 Depression Total Score: 0 03/04/19 23 9:18 AM EST documented as of this encounter Care Teams X Ray Service Technician Relationship Specialty Start Date End Date Christopher Wang MD [address] [place] [address] PCP - General Internal Medicine 08/23/19 documented as of this encounter
--- OUTSIDE RECORDS SUMMARY | 2024-04-18 08:06 | XMS_ITS ---
Author Organization [facility] Address [address] [place] [address] Care Team Providers Care Order Tracer Name Role Phone Christopher Wang M.D. Primary Care Provider Un available Rubén Bruce Jr [phone] Encounters Encounter Location Date Provider Diagnosis [facility] [address] [facility] [address] [place] [address] 09/21/2023 Rubén Bruce Jr PLAN OF TREATMENT Next Appt Details Provider Name:Rubén topete Jr, 01/04/2025 10:40:00 AM, [address] [place] [address], [address], [place], [address],
--- OUTSIDE RECORDS SUMMARY | 2024-04-18 08:06 | XMS_ITS | Clinical Summary ---
Author Organization [facility] Address [address] [place] [address] Phone Care Team Providers Care Traffic Ii Manager Name Role Phone Christopher Wang MD Primary Care Provider [phone] [phone] Allergies No known active allergies Medications acetaminophen [...] AM EDT Office Visit [facility] [place] [address] [phone] Barber Beatty DPM 175 [facility] [address] [place] [address] Health Maintenance Due Date Last Done Comments [...] Maintenance Insurance MEDICAID - [place] Care Teams Traffic Ii Manager Relationship Specialty Start Date End Date Christopher Wang MD [address] [place] [address] PCP - General 04/28/14
--- OUTSIDE RECORDS SUMMARY | 2024-04-18 08:06 | XMS_ITS | Encounter Summary ---
Author Organization [employer] Address [address] [place] [address] 7 [place] [address] Care Team Providers Care Evaluation Advisor Name Role Phone Christopher Wang MD Primary Care Provider [phone]- [phone] Reason for Visit * Reason Comments Med Refill Encounter Details Date Type Department Care Team ([facility] st Contact Info) Description 11/26/2023 Refill [facility] CH[facility] MED & PEDS [address] [place] [address] Christopher Wang MD [address] [place] [address] Bloating symptom Social History Tobacco Use Types [...] Description 04/20/2024 8:00 AM EST Office Visit [facility] ADULT DENTAL [address] [place] [address] Janay Veliz DMD documented as of this encounter Visit Diagnoses Diagnosis Bloating symptom Flatulence, eructation, and gas pain documented in this encounter Additional Health Concerns Assessment Noted Time PHQ-9 Depression Total Score: 0 03/04/19 23 9:18 AM EST documented as of this encounter Care Teams Evaluation Advisor Relationship Specialty Start Date End Date Christopher Wang MD [address] [place] [address] PCP - General Internal Medicine 08/23/19 documented as of this encounter
--- OUTSIDE RECORDS SUMMARY | 2024-04-18 08:06 | XMS_ITS | Encounter Summary ---
Author Organization [employer] Address [address] [place] [address] [place] [address] Care Team Providers Care Engine Boss Name Role Phone Christopher Wang MD Primary Care Provider [phone]- [phone] Reason for Visit * Reason Onset Date Comments Referral 12/04/2023 Encounter Details Date Type Department Care Team ([facility] st Contact Info) Description 12/04/2023 Telephone [facility] CHC MED & PEDS [address] [place] [address] Christopher Wang MD [address] [place] [address] Referral Social History Tobacco Use Types Packs/Day [...] they discussed with PCP. Please contact at [phone] * Telephone Encounter - Ainsley Laird - 12/04/2023 11:00 AM EDT Tc from pt requesting a different location for audiology referral. Pt stated he called [employer] and had a hard time. Pt is requesting to be seen in a facility in [place] as discussed duringlast office visit No further details provided. Contact pt at [phone] documented in this encounter Plan of Treatment Upcoming Encounters Date Type Department Care Team (Late st Contact Info) Description 04/20/2024 8:00 AM EST Office Visit [facility] ADULT DENTAL [address] [place] [address] Janay Veliz DMD documented as of this encounter Visit Diagnoses Not on filedocumented in this encounter Additional Health Concerns Assessment Noted Time PHQ-9 Depression Total Score: 0 03/04/19 23 9:18 AM EST documented as of this encounter Care Teams Engine Boss Relationship Specialty Start Date End Date Christopher Wang MD [address] [place] [address] PCP - General Internal Medicine 08/23/19 documented as of this encounter
[2024-04-18 08:16] VITALS: BP 120/72; PULSE 69; BMI 39.3
--- NOTE | 2024-04-18 08:16 | A.OFFVIS_ITS ---
Vital Signs 04/18/24 08:16 Height 6 ft 1 in Weight 297 lb 9.985 oz BMI 39.3 BP 120/72 Blood Pressure Location Lt brachial Position Sitting Pulse 69 Pulse Source Monitor Intake Visit Reasons: hs pt 1 year f/up refill meds Stage Settings Painter Required: No Allergies No Known Allergies [No Known Allergies*] Allergy (Verified 04/18/24 08:19) Medication List - Last Reconciled 04/18/24 by Lena Dorantes NP-C aspirin 81 mg PO DAILY atorvastatin 40 mg PO QPM azathioprine 50 mg PO BID benzonatate 100 mg PO TID PRN brinzolamide-brimonidine 1-0.2 % (Simbrinza) 1 drp ophthalmic (eye) BID calcium carbonate-vitamin D3 600 mg-10 mcg (400 unit) 1 tab PO BID cholecalciferol (vitamin D3) 25 mcg PO DAILY cyanocobalamin (vitamin B-12) 1,000 mcg PO DAILY gabapentin 800 mg PO BID irbesartan 75 mg PO QAM metformin ER 500 mg PO BEDTIME pyridostigmine bromide 60 mg PO BID simethicone (Gas Relief Extra Strength) 125 mg PO TID PRN sucralfate 1 g PO TID 30 days HPI HPI hs pt 1 year f/up refill meds: Details: Blaine is a 68-year-old male with past medical history of myasthenia gravis, obesity, hypertension, hyperlipidemia, diabetes, obstructive sleep apnea, right bundle branch block, mild nonobstructive coronary artery disease who presents for follow-up. Today he reports that he has been doing well since his last visit July 2022. He denies having chest discomfort at rest or with activity. No concerning shortness of breath, PND, orthopnea or edema. No palpitations, lightheadedness, presyncope, syncope, falls. He admits to being mostly sedentary, especially in the winter. Compliant with meds. [facility] Medical History Lipoma Coronary atherosclerosis Costochondritis Elevated cholesterol WILKERSON (nonalcoholic steatohepatitis) Sleep apnea Normocytic anemia Hypertension Diabetes Myasthenia gravis Surgical History S/P excision of lipoma (05/11/23) Hx laparoscopic cholecystectomy H/O colonoscopy Hx of partial thyroidectomy Hx of cardiac catheterization H/O meniscectomy of right knee H/O spinal fusion Family History Mother No problems noted. Father No problems noted. Social History Household Members: Spouse and Children Housing: House Are you a primary post acute care nurse practitioner to a significant other at home: No Do you presently have visiting nurse or other home services: No Alcohol intake: never Patient Tobacco Use Status: Never used Tobacco service: No Current occupational status: disabled Review of Systems Const All systems reviewed & are unremarkable except as noted in HPI and below ENT Denies dizziness Card Denies chest pain, Denies chest pain at rest, Denies chest pain with activity, Denies rapid heart rate, Denies pedal edema, Denies edema, Denies leg edema, Denies lightheadedness, Denies palpitations, Denies dyspnea, Denies dyspnea on exertion and Denies orthopnea Resp Denies cough, Denies dyspnea and Denies dyspnea on exertion GI Denies hematochezia and Denies change in stool character Musc Denies abnormal gait, Denies limited range of motion, Denies muscle cramps, Denies muscle weakness, Denies numbness, Denies radiating pain into limb, Denies stiffness and Denies tingling Neuro Denies abnormal gait, Denies dizziness, Denies numbness and Denies tingling Endo Denies palpitations Physical Exam Vital Signs: Last Vital Signs Pulse 69 04/18/24 08:16 BP 120/72 04/18/24 08:16 BMI result Body Mass Index 39.3 Const General: cooperative, healthy appearing, comfortable and no acute distress Orientation/consciousness: patient oriented x3 Neck Neck: Yes normal visual inspection Resp Effort & Inspection: normal respiratory effort Auscultation: clear to auscultation bilaterally, no rales, no rhonchi and no wheezes Cardio Rate: regular rate Rhythm: regular rhythm Heart sounds: S1 normal heart sound present, S2 normal heart sound present, no gallops, no murmurs and no rubs Neuro General: patient oriented x3 Extrem General: Yes normal to inspection, No no pedal edema and No calf tenderness Psych Appearance: grossly normal Mental Status: mental status grossly normal Speech and movement: Normal speech and movement present Office Procedures EKG Details: Today read by me, sinus rhythm with sinus arrhythmia, left axis deviation, right bundle branch block, rate 69, QTC 445 millisecond [id number], Complete Assessment & Plan Assessment & Plan (1) Chest pressure: Code(s): R07.89 - Other chest pain Category: Medical Plan: Prior reports of exertional chest discomfort. [facility] evaluation and ruled out for ACS. Echocardiogram done 06/07/2022 showed EF 60-65%, no regional wall motion abnormalities, normal RV systolic function, left atrium mildly dilated. Exercise stress test with exercise 5.5 minutes of stage I with mild shortness of breath, no chest discomfort and no EKG changes meeting criteria for ischemia. Due to his exertional symptoms he underwent a CTA of the coronary arteries on 07/09/2022 showing multifocal calcific atherosclerotic disease producing moderate, 50-69% stenoses in the proximal segment of the distal LAD, mid circumflex, proximal to mid RCA and distal RCA, multiple mild, 25-49% additional stenoses, left main short, normal. This led to cardiac catheterization, 08/26/2022 showing only mild nonobstructive coronary artery disease. He is currently doing well with no anginal sounding symptoms. EKG today showing normal sinus rhythm with right bundle branch block, unchanged from prior EKG, rate 69. Signs and symptoms of angina reviewed with him. Will continue with risk factor modification. Continue aspirin indefinitely. Continue atorvastatin with ideal LDL goal less than 70. Labs done 04/11/2024 showed LDL 61. Continue irbesartan for good blood pressure control, blood pressure today 120/72. Increase physical activity as tolerated. Cardiology follow-up 1 year, sooner if needed. (2) Coronary atherosclerosis: Comment: Cardiac catheterization 08/26/2022 showed mild luminal irregularities in the LAD and RCA, left circumflex minimal luminal irregularity Code(s): I25.10 - Atherosclerotic heart disease of [place] coronary artery without angina pectoris Category: Medical (3) Hypertension: Code(s): I10 - Essential (primary) hypertension Category: Medical Plan: Well controlled. No med changes made (4) DMII (diabetes mellitus, type 2): Code(s): E11.9 - Type 2 diabetes mellitus without complications Category: Medical Plan: Hemoglobin A1c goal less than 7. Followed by PCP (5) Hyperlipidemia: Code(s): E78.5 - Hyperlipidemia, unspecified Category: Medical Plan: Moriarty LDL goal less than 70. Currently at goal. Continue atorvastatin 40 mg daily. Plan Time spent on chart review, documentation, interview and assessment Medications: Refilled irbesartan 75 mg PO QAM 90 tabs 3RF Coding Level of Care Code Est Pt Level 4 (28413) Complex EM visit Add On G2211 Diagnoses Chest pressure R07.89 Coronary atherosclerosis I25.10 Hypertension I10 DMII (diabetes mellitus, type 2) E11.9 Hyperlipidemia E78.5 CPT Codes EKG - CPT: 32128-[id number], Complete ([id number]) Time Spent (min) 30
== END 2024-04-18 08:44 | disposition home or self-care (01) ==
PROVIDERS: PCP Internal Medicine; Visit Provider Nurse Practitioner Family
DX: R07.89 Other chest pain (principal); I25.10 Atherosclerotic heart disease of native coronary artery without angina pectoris; I10 Essential (primary) hypertension; E11.9 Type 2 diabetes mellitus without complications; E78.5 Hyperlipidemia, unspecified
CPT/HCPCS: 93010; 99214

== ENCOUNTER → 2024-04-18 07:58 | Outpatient (BNVA) | payer MEDICAID, SELFPAY | PROVIDERS: PCP Internal Medicine; Visit Provider Nurse Practitioner Family | DX: R07.89 Other chest pain (principal); I25.10 Atherosclerotic heart disease of native coronary artery without angina pectoris; I10 Essential (primary) hypertension; I45.10 Unspecified right bundle-branch block; E11.9 Type 2 diabetes mellitus without complications; E78.5 Hyperlipidemia, unspecified | CPT/HCPCS: 93005; 99212 ==

== ENCOUNTER → 2024-07-12 10:17 | Outpatient (BNV) | payer BC, SELFPAY | PROVIDERS: PCP Internal Medicine; Visit Provider Radiology Diagnostic Radiology | DX: R90.82 White matter disease, unspecified (principal) | CPT/HCPCS: 70553 ==

== ENCOUNTER 2024-07-12 10:19 | Outpatient (REF) | payer BC, SELFPAY ==
--- NOTE | ~2024-07-12 | MR_ITS ---
EXAMINATION: MR BRAIN IAC PROTOCOL WITHOUT AND WITH CONTRAST CLINICAL INFORMATION: Tinnitus, left ear. Decreased/hearing loss, left ear COMPARISON: None available. TECHNIQUE: Multiplanar, multisequence MRI of the brain IAC protocol was obtained before and after the intravenous administration of 10 mL gadolinium based (Gadavist) without reported immediate complications. FINDINGS: The cochlear and vestibular components of the 8th cranial nerves demonstrated no signal abnormality or enhancing mass. No enhancing mass in the cerebellopontine angle cisterns nor the perimesencephalic cisterns. No enhancing lesion within the brainstem. The anterior inferior cerebral arteries are type I laterally. Flow-void signal within the main vessels is normal. Meckel's caves and cisternal segments of the trigeminal nerves with the anterior zones demonstrated no signal abnormality or enhancing mass. No restricted diffusion. No acute intracranial hemorrhage, mass effect, midline shift, hydrocephalus or herniation. Osorio-white matter differentiation is normal. Multifocal patchy and punctate subcortical deep white matter hyperintense T2 FLAIR signal involving centrum semiovale and dumont radiata. Hyperintense T2 FLAIR signal in the mid garima No signal abnormality or enhancing lesion within the uterus:. Sellar/suprasellar region is normal. Craniocervical junction demonstrates normal position of the cerebellar tonsils. Midline structures are normal. MR/MR head/brain wo/w con IMPRESSION: No vestibular schwannoma. Nonspecific white matter T2 FLAIR is signal. Consider small vessel occlusive disease in the correct clinical settings. Electronically signed by: Nathan Holland MD 07/12/2024 11:49 AM EDT
--- OUTSIDE RECORDS SUMMARY | 2024-07-12 11:04 | XMS_ITS | Encounter Summary ---
Author Organization [employer] Address [address] [place] [address] [place] [address] Care Team Providers Care Database Operator Name Role Phone Christopher Wang MD Primary Care Provider [phone]- [phone] Reason for Visit * Reason Comments Med Refill Encounter Details Date Type Department Care Team ([facility] st Contact Info) Description 04/07/2022 Refill [facility] CH[facility] MED & PEDS [address] [place], [place] [phone] Christopher Wang MD [address] [place] [address] Primary hypertension (Primary Dx); Type 2 diabetes mellitus without complication, without long-term current use of insulin ([facility]); Vitamin B12 deficiency Social History Tobacco Use [...] Care Team (Late st Contact Info) Description 07/19/2024 8:00 AM EDT Office Visit [facility] ADULT DENTAL [address] [place] [address] Janay Veliz DMD documented as of this encounter Visit Diagnoses Diagnosis Primary hypertension- Primary Unspecified essential hypertension Type 2 diabetes mellitus without complication, without long-term current use of insulin ([facility]) Vitamin B12 deficiency Other B-complex deficiencies documented in this encounter Additional Health Concerns Assessment Noted Time PHQ-9 Depression Total Score: 0 03/04/19 23 9:18 AM EST documented as of this encounter Care Teams Database Operator Relationship Specialty Start Date End Date Christopher Wang MD [address] [place] [address] PCP - General Internal Medicine 08/23/19 documented as of this encounter
[2024-07-12] MEDS: gadobutroL 10 ML VIAL IVPUSH (11:10)
== END 2024-07-12 10:20 | disposition home or self-care (01) ==
LOC: HO.MRI 10:19
PROVIDERS: PCP Internal Medicine; Visit Provider Internal Medicine
DX: H93.12 Tinnitus, left ear (principal)
CPT/HCPCS: 70553; A9585

== ENCOUNTER 2024-08-29 14:06 | Outpatient (REF) | payer BC, SELFPAY ==
--- OUTSIDE RECORDS SUMMARY | 2023-05-15 07:30 | XMS_ITS ---
Author Organization [facility] Address [address] [place] [address] Care Team Providers Care Monorail Car Operator Name Role Phone Christopher Wang M.D. Primary Care Provider Un available Rubén Bruce Jr Unavailable REASON FOR VISIT abnormal UGI, dysphagia Problems Problem Type SNOMED Code ICD Code Onset Dates Problem Status W/U Status Risk Notes Problem Gastro-esophagea l reflux disease without esophagitis (720152144) Gastro-esophage al reflux disease without esophagitis (K21.9) Active confirmed Encounters Encounter Location Date Provider Diagnosis [facility] [place] [address] [place] [id number] 05/15/2023 Rubén Bruce Jr Abnormal CT scan, [...] 10:40:00 AM, [address], [address], [place], [address], Progress Notes * ANAIS JAEGERDOB:10/1955 (69 yo M)Acc No.[id number]:05/15/2023 EGD/MAC Patient: ANAIS BULLOCK Provider: Barbra Bruce MD :1955 A ge:67 Y S ex:Male Date:05/15/2023 Address:[address] [place] [address] Pcp:Christopher Wang M.D. Subjective: * Chief Complaints: * 1 . abnormal UGI, dysphagia. * Medical History: Objective: * Vitals: Assessment: * Assessment: 1. A bnormal CT scan, esophagus - R93.3 (Primary) 2 . G liss-esophageal reflux disease without esophagitis - K21.9 3 . O ther dysphagia - R13.19 ? Plan: * Treatment: * Procedure Codes: 4 3239 UPPER GI ENDOSCOPY, BIOPSY, [address]134 ESOPH ENDOSCOPY, DILATION, Modifiers: 59 * * The named appointment provid er may or may not be the originator of this progress note, and it is not deemed complete until electronically signed by the appointment provider. Sign off status: Pending * Provider: Barbra Bruce MD Date: 05/15/2023 Generated for Ted santana/Winston/Yseyitting on: 08/29/2024 08:39 AM EDT
--- OUTSIDE RECORDS SUMMARY | 2024-08-29 15:27 | XMS_ITS | Encounter Summary ---
Author Organization [employer] Address [address] [place] [address] Care Team Providers Care Executive Personal Assistant Name Role Phone Christopher Wang MD Primary Care Provider [phone] Reason for Visit * Reason Comments Med Refill Encounter Details Date Type Department Care Team ([facility] st Contact Info) Description 04/07/2022 Refill [facility] CHC MED & PEDS [address] [place], [place] [phone] Christopher Wang MD [address] [place] [address] Primary hypertension (Primary Dx); Type 2 diabetes mellitus without complication, without long-term current use of insulin ([facility]); Vitamin B12 deficiency Social History Tobacco Use [...] Care Team (Late st Contact Info) Description 11/07/2024 9:15 AM EDT Office Visit [facility] MED & PEDS [address] [place] [address] Christopher Wang MD [address] [place] [address] documented as of this encounter Visit Diagnoses Diagnosis Primary hypertension- Primary Unspecified essential hypertension Type 2 diabetes mellitus without complication, without long-term current use of insulin ([facility]) Vitamin B12 deficiency Other B-complex deficiencies documented in this encounter Additional Health Concerns Assessment Noted Time PHQ-9 Depression Total Score: 0 03/04/19 23 9:18 AM EST documented as of this encounter Care Teams Executive Personal Assistant Relationship Specialty Start Date End Date Christopher Wang MD [address] [place] [address] PCP - General Internal Medicine 08/23/19 documented as of this encounter
[2024-08-29 15:52] LABS: CT PCR Urine NOT DETECTED (Not Detect.); NG PCR Urine NOT DETECTED (Not Detect.)
== END 2024-08-29 14:07 | disposition home or self-care (01) ==
LOC: HO.LNP 14:06
PROVIDERS: Visit Provider Internal Medicine
DX: Z11.3 Encounter for screening for infections with a predominantly sexual mode of transmission (principal); N39.0 Urinary tract infection, site not specified; R31.9 Hematuria, unspecified
CPT/HCPCS: 87086; 87088; 87186; 87491; 87591

== ENCOUNTER 2024-09-07 17:04 | Emergency (ER) | payer BC, SELFPAY ==
--- NOTE | 2024-09-07 17:09 | ED.GENADULT ---
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 on azathioprine 50 mg 3 times a day and pyridostigmine 60 mg twice a day apparently was diagnose with UTI on 08/30 was given Cipro which she took for 2 days within 24 hours taking Cipro patient noticed heavy speech slurring and do coughing more often similar to that when he had myasthenia gravis flare-up patient has stopped the medicine after taking it for 2 days in his still having the same feeling Related Data Home Medications ?Medication ?Instructions ?Recorded ?Confirmed calcium 600 mg (as 1 tab PO BID 02/28/22 04/18/24 carbonate)-vitamin D3 10 mcg (400 unit) tablet azathioprine 50 mg tablet 50 mg PO BID 06/07/22 04/18/24 benzonatate 100 mg capsule 100 mg PO TID PRN cough 06/07/22 04/18/24 cholecalciferol (vitamin D3) 25 25 mcg PO DAILY 06/07/22 04/18/24 mcg (1,000 unit) tablet cyanocobalamin (vitamin B-12) 1,000 mcg PO DAILY 06/07/22 04/18/24 1,000 mcg tablet gabapentin 800 mg tablet 800 mg PO BID 06/07/22 04/18/24 metformin 500 mg tablet,extended 500 mg PO BEDTIME 06/07/22 04/18/24 release 24 hr pyridostigmine bromide 60 mg tablet 60 mg PO BID 06/07/22 04/18/24 simethicone 125 mg capsule (Gas 125 mg PO TID PRN bloating 06/07/22 04/18/24 Relief Extra Strength) brinzolamide 1 %-brimonidine 0.2 % 1 drp ophthalmic (eye) BID 06/08/22 04/18/24 eye drops,suspension (Simbrinza) aspirin 81 mg chewable tablet 81 mg PO DAILY 07/21/22 04/18/24 Previous Rx's ?Medication ?Instructions ?Recorded sucralfate 1 gram tablet 1 g PO TID 30 days #90 tabs 07/22/24 irbesartan 75 mg tablet 75 mg PO QAM #90 tabs 04/18/24 atorvastatin 40 mg tablet 40 mg PO QPM #90 tabs 05/10/24 Allergies Allergy/AdvReac Type Severity Reaction Status Date / Time No Known Allergies (No Known Allergy Verified 09/07/24 17:13 Allergies*) [facility] Past Medical History Medical History Lipoma Coronary atherosclerosis Costochondritis Elevated cholesterol WILKERSON (nonalcoholic steatohepatitis) Sleep apnea Normocytic anemia Hypertension Diabetes Myasthenia gravis Surgical History S/P excision of lipoma (05/11/23) Hx laparoscopic cholecystectomy H/O colonoscopy Hx of partial thyroidectomy Hx of cardiac catheterization H/O meniscectomy of right knee H/O spinal fusion Family History Family History Mother No problems noted. Father No problems noted. Social History Social History Household Members: Spouse and Children Housing: House Are you a primary rn complex care to a significant other at home: No Do you presently have visiting nurse or other home services: No Alcohol intake: never Patient Tobacco Use Status: Never used Tobacco Smoked in Last 30 Days: No Use of substances other than those prescribed or required for medical reasons: No Advance Directives: No Advance Directives Information Provided: No Do you have a plan to hurt others: No Plan service: No Current occupational status: disabled Physical Exam ED Vital Signs: Vital Signs - 24 hr 09/07/24 17:11 09/07/24 18:34 09/07/24 19:33 Temperature 98.3 F 97.8 F 97.9 F Pulse Rate 79 69 63 Respiratory Rate 16 16 16 Blood Pressure 114/54 L 131/66 128/67 Pulse Oximetry 98 97 98 Oxygen Delivery Method Room Air Room Air Room Air BMI result Body Mass Index 38.7 Appearance: Alert. Oriented X3. No acute distress. Eyes: PERRLA, No Nystagmus no ptosis ENT: Pharynx normal. Oral Mucosa moist normal speech occasional cough Neck: Normal inspection. Neck supple. CVS: Normal heart rate and rhythm. Pulses normal. Respiratory: No respiratory distress. Equal air entry bilateral, no wheezing/rales/rhonchi Abdomen: Soft and nontender. Bowel sounds are present, no mass palpable, no CVA tenderness Skin: Skin warm and dry. Normal skin color. Normal skin turgor. Extremities: No lower extremity edema. No calf tenderness Neuro: Oriented X 3. No motor deficit. No sensory deficit.No cerebellar signs , cranial nerves II-XII intact Course Course Course Narrative: This is a rapid medical exam performed by Itz Caldwell NP: Additional HPI, ROS, PE not included below will be deferred to primary provider. Patient is a 69-year-old male with history of T2DM, WILKERSON, GABY, coronary atherosclerosis, obesity, myasthenia gravis, HTN presenting to the emergency department with complaint of shortness of breath after coughing episodes and slurred speech with speaking after talking too much. States he has been symptom-free from MG for the past 5 years, but since he was treated with antibiotics for an infection last week, he has had these symptoms. Plan: viral serology, labs Medications Administered Discontinued Medications Generic Name Dose Route Start Last Admin Trade Name Freq PRN Reason Stop Dose Admin Pyridostigmine [place] 60 mg 09/07/24 20:07 09/07/24 20:26 Pyridostigmine [place] 60 Mg Tablet PO 09/07/24 20:08 60 mg ONCE ONE Administration Medical Decision Making Medical Decision Making [facility] Narrative: Patient's history of myasthenia gravis involving the dorman muscles came here for flare-up after take Cipro for 2 days patient is already on Imuran and taking pyridostigmine 60 mg twice a day. At this time there is no respiratory distress or difficulty in swallowing case discussed Dr. Ravi neurologist advised to increase the dose of pyridostigmine to 4 times a day and follow up with neurologist Differential Diagnosis Differential Diagnoses: The differential diagnosis associated with the presentation includes Admission/Observation Consideration of admission/observation: Escalation of care including admission/observation considered Lab Data [facility] Lab Attestation statement: I reviewed the patient's lab results. 09/07/24 17:35 09/07/24 17:35 Labs: Lab Results 09/07/24 09/07/24 Range/Units 17:35 18:48 WBC 6.9 (4.8-10.8) X10*3/uL RBC 4.47 L (4.60-5.80) X10*6/uL Hgb 13.2 L (14.0-18.0) g/dl Hct 39.2 L (42.0-52.0) % MCV 87.7 (80.0-98.0) fL MCH 29.5 (27.0-33.0) pg MCHC 33.7 (31.0-36.0) g/dl RDW 14.2 (11.0-16.0) % Plt Count 180 (160-400) X10*3/uL MPV 10.2 (9.4-12.4) fL Immature Gran % (Auto) 0.3 (0.0-0.4) % Neut % (Auto) 66.6 (45-73) % Lymph % (Auto) 24.3 (20-40) % [place] % (Auto) 6.2 (2-11) % Eos % (Auto) 1.6 (0-4) % Baso % (Auto) 1.0 (0-2) % Lymph # (Auto) 1.7 (1.2-4.9) X10*3/uL [place] # (Auto) 0.4 (0.1-1.2) X10*3/uL Eos # (Auto) 0.1 (0.0-0.4) X10*3/uL Baso # (Auto) 0.1 (0.0-0.2) X10*3/uL Abs Immat Gran (auto) 0.02 (0.00-0.03) X10*3/uL Absolute Neuts (auto) 4.6 (2.0-8.3) x10*3/uL Absolute Nucleated RBC 0.000 (0.0-0.012) X10*3/uL Nucleated RBC % (auto) 0.0 (0.0-0.2) /100WBC Sodium 141 (135-145) mmol/L Potassium 4.2 (3.3-5.1) mmol/L Chloride 109 H (96-108) mmol/L Carbon Dioxide 25 (22-29) mmol/L Anion Gap 11 L (12-20) BUN 15 (9-16) mg/dL Creatinine 0.86 (0.5-1.4) mg/dL Estim Creat Clear Calc 119.2 Estimated GFR > 60 Random Glucose 119 H (60-115) mg/dL Calcium 8.9 D (8.4-10.2) mg/dL Total Bilirubin 0.5 (0.0-1.0) mg/dL AST 31 (5-37) U/L ALT 42 H (0-40) U/L Alkaline Phosphatase 68 (39-117) U/L Total Protein 6.6 (6.5-8.0) g/dL Albumin 4.0 (3.5-5.0) g/dL Urine Color Yellow Urine Appearance Clear Urine pH 5.5 (5.0-9.0) Ur Specific [place] 1.020 (1.005-1.025) Urine Protein Negative (Neg-Trace) mg/dL Urine Glucose (UA) Negative (Negative) mg/dL Urine Ketones Negative (Negative) mg/dL Urine Blood Negative (Negative) Urine Nitrite Negative (Negative) Ur Leukocyte Esterase Trace H (Negative) Urine RBC 0-2 (0-2) /HPF Urine WBC 0-5 (0-5) /HPF Ur Squamous Epith Cells 0-2 (0-2) /HPF Urine Bacteria Trace (None Seen) Hyaline Casts 0-2 (0-2) /LPF Influenza Type A (PCR) NEGATIVE (Negative) Influenza Type B (PCR) NEGATIVE (Negative) RSV RNA Qual (PCR) NEGATIVE (Negative) SARS-CoV-2 RNA (RT-PCR) NEGATIVE (Negative) Discharge Plan Discharge Clinical Impression: Myasthenia gravis Patient Disposition: Home, Self-Care Instructions: Myasthenia Gravis (ED) Additional Instructions: Increase the dose of pyridostigmine 60 mg 4 times a day Follow with your neurologist tomorrow Report to the ER if increased shortness a breath or difficulty in breathing Prescriptions: No Action sucralfate 1 gram tablet 1 g PO TID 30 Days Qty: 90 3RF atorvastatin 40 mg tablet 40 mg PO QPM Qty: 90 3RF simethicone [Gas Relief Extra Strength] 125 mg capsule 125 mg PO TID PRN (Reason: bloating) cyanocobalamin (vitamin B-12) 1,000 mcg tablet 1,000 mcg PO DAILY azathioprine 50 mg tablet 50 mg PO BID gabapentin 800 mg tablet 800 mg PO BID benzonatate 100 mg capsule 100 mg PO TID PRN (Reason: cough) pyridostigmine bromide 60 mg tablet 60 mg PO BID metformin 500 mg tablet extended release 24 hr 500 mg PO BEDTIME cholecalciferol (vitamin D3) 25 mcg (1,000 unit) tablet 25 mcg PO DAILY Simbrinza 1-0.2 % drops,suspension 1 drp ophthalmic (eye) BID aspirin 81 mg tablet,chewable 81 mg PO DAILY calcium carbonate-vitamin D3 600 mg-10 mcg (400 unit) tablet 1 tab PO BID irbesartan 75 mg tablet 75 mg PO QAM Qty: 90 3RF Interventions: ED Discharge Assessment Last Done: 09/07/24 20:27 Discharge Date/Time: 09/07/24 20:35 Print Language: Pakistani
[2024-09-07 17:11] VITALS: BP 114/54; PULSE 79; RESP 16; TEMP 36.8; O2SAT 98; BMI 38.7
[2024-09-07 17:41] LABS: MANUAL DIFF FLAG NO
[2024-09-07 17:45] LABS: Hematocrit 39.2 % (42.0-52.0); Hemoglobin 13.2 g/dl (14.0-18.0); Imm Gran Abs Auto 0.02 X10*3/uL (0.00-0.03); Imm Gran Pct Auto 0.3 % (0.0-0.4); Lymphocytes Absolute Auto 1.7 X10*3/uL (1.2-4.9); Mean Corpuscular HGB Conc 33.7 g/dl (31.0-36.0); Mean Corpuscular Hemoglobin 29.5 pg (27.0-33.0); Mean Corpuscular Volume 87.7 fL (80.0-98.0); NRBC Abs Auto 0.000 X10*3/uL (0.0-0.012); NRBC Pct Auto 0.0 /100WBC (0.0-0.2); Platelet Count 180 X10*3/uL (160-400); Red Blood Count 4.47 X10*6/uL (4.60-5.80); White Blood Count 6.9 X10*3/uL (4.8-10.8)
[2024-09-07 17:55] LABS: Alanine Aminotransferase 42 U/L (0-40); Albumin Level 4.0 g/dL (3.5-5.0); Alkaline Phosphatase 68 U/L (39-117); Anion Gap 11 (12-20); Aspartate Amino Transferase 31 U/L (5-37); Blood Urea Nitrogen 15 mg/dL (9-16); Calcium 8.9 mg/dL (8.4-10.2); Carbon Dioxide 25 mmol/L (22-29); Chloride 109 mmol/L (96-108); Creatinine Clr Calc Pharmacy 119.2; Estimated Glomerular Filt Rate > 60; Potassium 4.2 mmol/L (3.3-5.1); Sodium 141 mmol/L (135-145); Total Protein 6.6 g/dL (6.5-8.0)
[2024-09-07 18:22] LABS: Resp Syncy Virus RNA Qual PCR NEGATIVE (Negative); SARS COV2 PCR INHOUSE NEGATIVE (Negative)
[2024-09-07 18:34] VITALS: BP 131/66; PULSE 69; RESP 16; TEMP 36.6; O2SAT 97
[2024-09-07 18:58] LABS: Appearance Urine Clear; Glucose Urine UA Negative (Negative); PH 5.5 (5.0-9.0); Specific Gravity - Urine 1.020 (1.005-1.025); UMIC TRIGGER UACC YES
[2024-09-07 19:33] VITALS: BP 128/67; PULSE 63; RESP 16; TEMP 36.6; O2SAT 98
[2024-09-07 20:27] VITALS: BP 128/67; PULSE 63; RESP 16; TEMP 36.6; O2SAT 98
== END 2024-09-07 20:35 | disposition home or self-care (01) ==
PROVIDERS: Registered Nurse Emergency; Emergency Provider Internal Medicine; PCP Internal Medicine
DX: G70.00 Myasthenia gravis without (acute) exacerbation (principal); R06.02 Shortness of breath; R05.9 Cough, unspecified; Z03.818 Encounter for observation for suspected exposure to other biological agents ruled out; Z79.899 Other long term (current) drug therapy
CPT/HCPCS: 80053; 81001; 85025; 87637; 99283; 99284

== ENCOUNTER 2024-09-18 16:07 | Emergency (ER) | payer BC, SELFPAY ==
[2024-09-18 16:10] VITALS: BP 157/83; PULSE 93; RESP 18; TEMP 36.5; O2SAT 98; BMI 38.4
--- NOTE | 2024-09-18 16:10 | ED.GENADULT ---
HPI - General Adult General Chief complaint: General Medical Stated complaint: difficulty swallowing Time Seen by Provider: 09/18/24 18:26 History of Present Illness ED Provider: Eduardo XAVIER narrative: The patient is a 69-year-old male with a history of myasthenia gravis. He is on pyridostigmine and azathioprine. He has been taking azathioprine 50 mg 3 times a day and pyridostigmine 60 mg twice a day. Two weeks ago he was experiencing infectious symptoms and went to an urgent care center where he was prescribed ciprofloxacin. He took ciprofloxacin for 2 days but then stopped it after he noticed that he felt his speech was weakening and he was coughing in a manner similar to myasthenia gravis flares. He came to the emergency room here on September 07 because of a persistent sense that his myasthenia gravis was being list well controlled. The emergency room physician spoke with 1 of our neurologists who recommended an increase of pyridostigmine to 4 times a day and follow up with his own neurologist, Dr. Noel. The patient says that he has made this dose increase and he has a follow up appointment in his regular doctor in 3 days this Thursday. However today he felt that he was having a lot more trouble swallowing and he was worried that this was because his myasthenia gravis was getting even worse and so he comes to the emergency room. No fever, sweats, chills. He does not feel short of breath. Related Data Home Medications ?Medication ?Instructions ?Recorded ?Confirmed calcium 600 mg (as 1 tab PO BID 02/28/22 04/18/24 carbonate)-vitamin D3 10 mcg (400 unit) tablet azathioprine 50 mg tablet 50 mg PO BID 06/07/22 04/18/24 benzonatate 100 mg capsule 100 mg PO TID PRN cough 06/07/22 04/18/24 cholecalciferol (vitamin D3) 25 25 mcg PO DAILY 06/07/22 04/18/24 mcg (1,000 unit) tablet cyanocobalamin (vitamin B-12) 1,000 mcg PO DAILY 06/07/22 04/18/24 1,000 mcg tablet gabapentin 800 mg tablet 800 mg PO BID 06/07/22 04/18/24 metformin 500 mg tablet,extended 500 mg PO BEDTIME 06/07/22 04/18/24 release 24 hr pyridostigmine bromide 60 mg tablet 60 mg PO BID 06/07/22 04/18/24 simethicone 125 mg capsule (Gas 125 mg PO TID PRN bloating 06/07/22 04/18/24 Relief Extra Strength) brinzolamide 1 %-brimonidine 0.2 % 1 drp ophthalmic (eye) BID 06/08/22 04/18/24 eye drops,suspension (Simbrinza) aspirin 81 mg chewable tablet 81 mg PO DAILY 07/21/22 04/18/24 Previous Rx's ?Medication ?Instructions ?Recorded sucralfate 1 gram tablet 1 g PO TID 30 days #90 tabs 09/07/23 irbesartan 75 mg tablet 75 mg PO QAM #90 tabs 04/18/24 atorvastatin 40 mg tablet 40 mg PO QPM #90 tabs 05/10/24 pyridostigmine bromide 60 mg tablet 90 mg (1.5 x 60 mg) PO TID 30 days 09/18/24 #135 tabs Allergies Allergy/AdvReac Type Severity Reaction Status Date / Time No Known Allergies (No Known Allergy Verified 09/18/24 16:14 Allergies*) Review of Systems Review of Systems: Yes all other systems are reviewed and are negative [facility] Past Medical History Medical History Lipoma Coronary atherosclerosis Costochondritis Elevated cholesterol WILKERSON (nonalcoholic steatohepatitis) Sleep apnea Normocytic anemia Hypertension Diabetes Myasthenia gravis Surgical History S/P excision of lipoma (05/11/23) Hx laparoscopic cholecystectomy H/O colonoscopy Hx of partial thyroidectomy Hx of cardiac catheterization H/O meniscectomy of right knee H/O spinal fusion Family History Family History Mother No problems noted. Father No problems noted. Social History Social History Household Members: Spouse and Children Housing: House Are you a primary home day care provider to a significant other at home: No Do you presently have visiting nurse or other home services: No Alcohol intake: never Patient Tobacco Use Status: Never used Tobacco Smoked in Last 30 Days: No Use of substances other than those prescribed or required for medical reasons: No Advance Directives: No Advance Directives Information Provided: No Do you have a plan to hurt others: No Plan service: No Current occupational status: disabled Physical Exam ED Vital Signs: Vital Signs - 24 hr 09/18/24 16:10 09/18/24 18:33 09/18/24 20:48 Temperature 97.7 F 97.7 F 97.1 F Pulse Rate 93 93 72 Respiratory Rate 18 18 20 Blood Pressure 157/83 H 157/83 H 133/76 Pulse Oximetry 98 98 96 Oxygen Delivery Method Room Air Room Air Room Air BMI result Body Mass Index 38.4 Const Other: The patient is awake, alert, pleasant, cooperative. He does not appear in distress. No increased work of breathing. He seems to be handling his secretions well. HENMT Other: Face is symmetrical. Mucous membranes moist. The pharynx is unremarkable. Eyes Other: Pupils are round equal, conjunctivae are clear, extraocular movements intact General: appearance normal, both eyes and all related structures Neck Neck: Yes normal visual inspection and Yes full ROM Resp Effort & Inspection: normal respiratory effort Auscultation: clear to auscultation bilaterally Cardio Rate: regular rate Rhythm: regular rhythm Heart sounds: S1 normal heart sound present and S2 normal heart sound present GI Other: Abdomen is soft and nontender Skin Other: The skin is dry and unremarkable Neuro Other: The patient is awake and alert with a normal mental status. Cranial nerves 2-12 seem grossly intact. He seems to be handling his secretions without difficulty. He has intact strength in his extremities. Extrem Other: No peripheral edema Course Course Course Narrative: This is an RME performed by Christopher Singer CNP: Additional HPI, ROS, PE not included below will be deferred to primary provider. Patient is a 69-year-old male who presents emergency department for evaluation. He expresses concern about his symptoms associated with myasthenia gravis, previously taking his at your 50 mg 3 times daily and pyridostigmine 60 mg twice daily. He states he was seen here couple of weeks ago, was having heavy speech with occasional slurring, some coughing. He states that since his visit 2 weeks, he has been experiencing difficulty swallowing, feeling as though food gets stuck when he is swallowing has a long time for it to fully past, and gets drainage from his nose. No vomiting. Worse at his last visit his medications were doubled. Despite this however, his symptoms continued to worsen. Maintaining airway. LS CTA. No focal neurological deficits, NIH stroke score 0. On review of record, neurology was consulted, Dr. Ravi had recommended increasing pyridostigmine 60 mg to 4 times daily and outpatient follow-up with Neurology Medical Decision Making Medical Decision Making MDM Narrative: The patient is a 69-year-old male with a myasthenia gravis on azathioprine and pyridostigmine. He has been feeling as if his myasthenia gravis has been exacerbated over the last 2 weeks after being prescribed ciprofloxacin at an urgent care center. He was seen here 10 days ago because of a sense of difficulty swallowing and that his voice sounded weaker. At that time his pyridostigmine was doubled from 60 b.i.d. to 60 q.i.d.. He returns today because he feels that swallowing has gotten more difficult. He has not felt short of breath. Clinically the patient looks well. Respiratory therapy measured a forced vital capacity of 4.79 and a negative inspiratory force of -60. I discussed the case with the patient's neurologist, Dr. Rufino Noel, of [facility]. The patient has a unremarkable labs and a benign clinical appearance. Recommendation from Neurology is to change the dosing of the pyridostigmine to 90 mg t.i.d. and to continue plans for the patient to follow up in the office on Thursday. A prescription for this new regimen for pyridostigmine was sent to his pharmacy. He should call his neurologist tomorrow. If worse he should return here or go to the emergency room at [facility]. Lab Data 09/18/24 16:33 09/18/24 16:33 Labs: Lab Results 09/18/24 Range/Units 16:33 WBC 6.1 (4.8-10.8) X10*3/uL RBC 4.63 (4.60-5.80) X10*6/uL Hgb 13.8 L (14.0-18.0) g/dl Hct 40.6 L (42.0-52.0) % MCV 87.7 (80.0-98.0) fL MCH 29.8 (27.0-33.0) pg MCHC 34.0 (31.0-36.0) g/dl RDW 14.3 (11.0-16.0) % Plt Count 175 (160-400) X10*3/uL MPV 10.6 (9.4-12.4) fL Immature Gran % (Auto) 0.2 (0.0-0.4) % Neut % (Auto) 65.2 (45-73) % Lymph % (Auto) 25.1 (20-40) % [place] % (Auto) 6.8 (2-11) % Eos % (Auto) 2.0 (0-4) % Baso % (Auto) 0.7 (0-2) % Lymph # (Auto) 1.5 (1.2-4.9) X10*3/uL [place] # (Auto) 0.4 (0.1-1.2) X10*3/uL Eos # (Auto) 0.1 (0.0-0.4) X10*3/uL Baso # (Auto) 0.0 (0.0-0.2) X10*3/uL Abs Immat Gran (auto) 0.01 (0.00-0.03) X10*3/uL Absolute Neuts (auto) 4.0 (2.0-8.3) x10*3/uL Absolute Nucleated RBC 0.000 (0.0-0.012) X10*3/uL Nucleated RBC % (auto) 0.0 (0.0-0.2) /100WBC Sodium 142 (135-145) mmol/L Potassium 3.9 (3.3-5.1) mmol/L Chloride 107 (96-108) mmol/L Carbon Dioxide 26 (22-29) mmol/L Anion Gap 13 (12-20) BUN 8 L (9-16) mg/dL Creatinine 0.85 (0.5-1.4) mg/dL Estim Creat Clear Calc 120.2 Estimated GFR > 60 Random Glucose 107 (60-115) mg/dL Calcium 9.5 D (8.4-10.2) mg/dL Total Bilirubin 0.7 (0.0-1.0) mg/dL AST 36 (5-37) U/L ALT 45 H (0-40) U/L Alkaline Phosphatase 76 (39-117) U/L Total Protein 7.1 (6.5-8.0) g/dL Albumin 4.1 (3.5-5.0) g/dL Discharge Plan Discharge Clinical Impression: Difficulty swallowing, Myasthenia gravis Patient Disposition: Home, Self-Care Additional Instructions: Please change your pyridostigmine dosing to 90 mg 3 times a day. This would be 1-1/2 tablets per dose. I have sent a prescription for this additional medication to your pharmacy. Please pick it up tomorrow. Crushing the pills in water may be helpful. Please contact Dr. Noel tomorrow if you do not feel you are doing well enough to keep your appointment on Thursday.. If significantly worse return to the emergency room or go to the emergency room at [facility]. Prescriptions: New pyridostigmine bromide 60 mg tablet 90 mg PO TID 30 Days Qty: 135 0RF No Action sucralfate 1 gram tablet 1 g PO TID 30 Days Qty: 90 3RF atorvastatin 40 mg tablet 40 mg PO QPM Qty: 90 3RF simethicone [Gas Relief Extra Strength] 125 mg capsule 125 mg PO TID PRN (Reason: bloating) cyanocobalamin (vitamin B-12) 1,000 mcg tablet 1,000 mcg PO DAILY azathioprine 50 mg tablet 50 mg PO BID gabapentin 800 mg tablet 800 mg PO BID benzonatate 100 mg capsule 100 mg PO TID PRN (Reason: cough) pyridostigmine bromide 60 mg tablet 60 mg PO BID metformin 500 mg tablet extended release 24 hr 500 mg PO BEDTIME cholecalciferol (vitamin D3) 25 mcg (1,000 unit) tablet 25 mcg PO DAILY Simbrinza 1-0.2 % drops,suspension 1 drp ophthalmic (eye) BID aspirin 81 mg tablet,chewable 81 mg PO DAILY calcium carbonate-vitamin D3 600 mg-10 mcg (400 unit) tablet 1 tab PO BID irbesartan 75 mg tablet 75 mg PO QAM Qty: 90 3RF Referrals: Christopher Wang MD [Primary Care Provider, Medical] Trav Noel MD [Physician, Neurology] Interventions: ED Discharge Assessment Last Done: 09/18/24 20:48 Discharge Date/Time: 09/18/24 20:47 Print Language: [place] Island[place]
[2024-09-18 16:43] LABS: MANUAL DIFF FLAG NO
[2024-09-18 16:45] LABS: Hematocrit 40.6 % (42.0-52.0); Hemoglobin 13.8 g/dl (14.0-18.0); Imm Gran Abs Auto 0.01 X10*3/uL (0.00-0.03); Imm Gran Pct Auto 0.2 % (0.0-0.4); Lymphocytes Absolute Auto 1.5 X10*3/uL (1.2-4.9); Mean Corpuscular HGB Conc 34.0 g/dl (31.0-36.0); Mean Corpuscular Hemoglobin 29.8 pg (27.0-33.0); Mean Corpuscular Volume 87.7 fL (80.0-98.0); NRBC Abs Auto 0.000 X10*3/uL (0.0-0.012); NRBC Pct Auto 0.0 /100WBC (0.0-0.2); Platelet Count 175 X10*3/uL (160-400); Red Blood Count 4.63 X10*6/uL (4.60-5.80); White Blood Count 6.1 X10*3/uL (4.8-10.8)
[2024-09-18 16:59] LABS: Alanine Aminotransferase 45 U/L (0-40); Albumin Level 4.1 g/dL (3.5-5.0); Alkaline Phosphatase 76 U/L (39-117); Anion Gap 13 (12-20); Aspartate Amino Transferase 36 U/L (5-37); Blood Urea Nitrogen 8 mg/dL (9-16); Calcium 9.5 mg/dL (8.4-10.2); Carbon Dioxide 26 mmol/L (22-29); Chloride 107 mmol/L (96-108); Creatinine Clr Calc Pharmacy 120.2; Estimated Glomerular Filt Rate > 60; Potassium 3.9 mmol/L (3.3-5.1); Sodium 142 mmol/L (135-145); Total Protein 7.1 g/dL (6.5-8.0)
[2024-09-18 18:33] VITALS: BP 157/83; PULSE 93; RESP 18; TEMP 36.5; O2SAT 98
[2024-09-18 20:48] VITALS: BP 133/76; PULSE 72; RESP 20; TEMP 36.2; O2SAT 96
== END 2024-09-18 20:47 | disposition home or self-care (01) ==
PROVIDERS: Nurse Practitioner Family; Emergency Provider Emergency Medicine; PCP Internal Medicine
DX: R13.10 Dysphagia, unspecified (principal); G70.00 Myasthenia gravis without (acute) exacerbation; Z79.899 Other long term (current) drug therapy
CPT/HCPCS: 36415; 80053; 85025; 99283; 99284

== ENCOUNTER 2024-09-24 17:46 | Inpatient (IN) | payer MEDICARE, SELFPAY ==
[2024-09-24 17:48] VITALS: BP 139/77; PULSE 73; RESP 18; TEMP 36.7; O2SAT 97; BMI 38.2
--- NOTE | 2024-09-24 17:51 | ED_ITS ---
HPI - General Adult General Chief complaint: General Medical Stated complaint: left droopy eye/hard time swallowing Time Seen by Provider: 09/24/24 18:32 Source: patient Mode of arrival: ambulatory History of Present Illness ED Provider: Lg XAVIER narrative: 69-year-old male with known history of myasthenia gravis, he is currently followed through [facility] Neurology by Dr. Noel, presents after initial decompensation when he was diagnosed with a urinary tract infection and started on ciprofloxacin which he states caused a reaction with his medications, although he was switched to Macrobid he began getting more symptoms which include eyelid droop, difficulty with swallowing, some facial symptoms which then typically progress to some mild shortness of breath but he denies any motor sensory deficits in the extremities. He states that he was started on high-dose steroids on Thursday by his neurologist but since he has begun to taper his symptoms have returned. Related Data Home Medications ?Medication ?Instructions ?Recorded ?Confirmed calcium 600 mg (as 1 tab PO BID 02/28/22 carbonate)-vitamin D3 10 mcg (400 unit) tablet azathioprine 50 mg tablet 50 mg PO BID 06/07/22 benzonatate 100 mg capsule 100 mg PO TID PRN cough 04/18/24 cholecalciferol (vitamin D3) 25 25 mcg PO DAILY 04/18/24 mcg (1,000 unit) tablet cyanocobalamin (vitamin B-12) 1,000 mcg PO DAILY 06/0704/18/24 1,000 mcg tablet gabapentin 800 mg tablet 800 mg PO BID 06/07/2204/18 metformin 500 mg tablet,extended 500 mg PO BEDTIME 04/18/24 release 24 hr pyridostigmine bromide 60 mg tablet 60 mg PO BID 06/0704/18/24 simethicone 125 mg capsule (Gas 125 mg PO TID PRN bloa ting 06/07/22 04/18/24 Relief Extra Strength) brinzolamide 1 %-brimonidine 0.2 % 1 drp ophthalmic (e ye) BID 06/08/22 04/18/24 eye drops,suspension (Simbrinza) aspirin 81 mg chewable tablet 81 mg PO DAILY 07/21/22 04/18/24 Previous Rx's ?Medication ?Instructions ?Recorded sucralfate 1 gram tablet 1 g PO TID 30 days #90 tabs 09/07/23 irbesartan 75 mg tablet 75 mg PO QAM #90 tabs atorvastatin 40 mg tablet 40 mg PO QPM #90 tabs pyridostigmine bromide 60 mg tablet 90 mg (1.5 x 60 mg ) PO TID 30 days 09/18/24 #135 tabs Allergies Allergy/AdvReac Type Severity Reaction Status Date / Time No Known Allergies (No Known Allergy Verified 09/24/24 17:53 Allergies*) Review of Systems 2 Review of Systems: Pertinent positives and negatives as stated in [facility] Past Medical History Source: nursing notes reviewed Medical History Lipoma Coronary atherosclerosis Costochondritis Elevated cholesterol WILKERSON (nonalcoholic steatohepatitis) Sleep apnea Normocytic anemia Hypertension Diabetes Myasthenia gravis Surgical History S/P excision of lipoma (05/11/23) Hx laparoscopic cholecystectomy H/O colonoscopy Hx of partial thyroidectomy Hx of cardiac catheterization H/O meniscectomy of right knee H/O spinal fusion Family History Family History Mother No problems noted. Father No problems noted. Social History Social History Household Members: Spouse and Children Housing: House Are you a primary mall plant caretaker to a significant other at home: No Do you presently have visiting nurse or other home services: No Alcohol intake: never Patient Tobacco Use Status: Never used Tobacco Smoked in Last 30 Days: No Use of substances other than those prescribed or required for medical reasons: No Advance Directives: No Advance Directives Information Provided: Yes service: No Current occupational status: disabled Physical Exam ED Exam Exam: VITAL SIGNS: Reviewed. GENERAL: Well developed, well nourished, in no acute distress. HEAD: Normocephalic/atraumatic EYES: PERRLA, EOMI, left eyelid droop, no gaze palsies EARS: Ext canals without abnormality NOSE: Nares patent bilateral OROPHARYNX: no oral lesions noted, posterior pharynx clear NECK: Supple, no adenopathy LUNGS: Normal breath sounds. No adventitious sounds or accessory muscle use. SpO2<97> CARDIOVASCULAR: Regular rate and rhythm without noted murmurs ABDOMEN: Soft, non-tender, non-distended with bowel sounds. MUSCULOSKELETAL: No tenderness, deformities, or effusions noted on gross inspection. EXTREMITIES: No cyanosis, clubbing or edema. SKIN: Inspection of the skin reveals no rashes NEUROLOGIC: Alert and oriented x 4. Strength and sensation to light touch were grossly intact x 4. Vital Signs: Vital Signs - 24 hr 09/24/24 17:48 09/24/24 18:30 Temperature 98.1 F 97.5 F Pulse Rate 73 63 Respiratory Rate 18 20 Blood Pressure 139/77 133/75 Pulse Oximetry 97 97 Oxygen Delivery Method Room Air Room Air BMI result Body Mass Index 38.2 Course Course Course Narrative: This is an RME: Additional HPI, ROS, PE not included below will be deferred to primary provider. RME assessment and note performed by: Nicole Apodaca PA-C This is a 72-[id number]-male, with a hx of myasthenia gravis, with complaints of left sided eye droopiness, and difficulty swallowing x 4 days. Patient has a history of myasthenia gravis, and states that this is consistent with a flare- ups he has had in the past.Dr. Noel, neurologist at [facility], started on prednisone on thursday. Initially the prednisone did help his symptoms however has worsened over the last several days. He is neurologically intact, no focal deficits on examination. Several weeks ago he was diagnosed with a urinary tract infection, started on ciprofloxacin then switched to Macrobid. Patient has been seen twice over the last several weeks with similar symptoms. Plan: Labs, further ER evaluation needed. Medications Administered Discontinued Medications Generic Name Dose Route Start Last Admin Trade Name Freq PRN Reason Stop Dose Admin Dexamethasone Sodium Phosphate 10 mg 09/24/24 20:10 09/24/24 20:19 Dexamethasone Sod Phosphate 10 Mg/Ml Vial IVPUSH 09/24/24 20:11 10 mg ONCE ONE Administration Medical Decision Making Medical Decision Making MDM Narrative: 69-year-old male with history and clinical presentation, DD DX: Myasthenia gravis, patient states that his neurologist had discuss possible plasma exchange, I did inform him that to the best of my knowledge we to not do plasma exchange here in this facility, obtained basic lab work, will reach out to his Neurology group. EKG interpretation by me: Sinus rhythm, right bundle branch block, no STEMI, HR-62, CT/QTC is within normal limits. 1851: I reviewed and interpreted all investigations and there is no leukocytosis or significant anemia no thrombocytopenia. There is no demonstrate GUILLERMO/electrolyte or liver enzyme derangements. CRP is undetectable. Patient is otherwise well appearing/nontoxic and hemodynamically stable. Reached out to [facility] for further direction in terms of whether or not patient should just receive a dose of steroids here with discharged on higher dose and further outpatient management or whether or not patient will need to be considered for transfer to [facility] for plasma exchange. 1910: RT to perform FVC assessment. 4: FVC-4.18L 2007: Still waiting for contact from Dr. Noel's office. At this time decided to reach out to whoever is on-call for [facility]. Patient remained stable. 2020: Patient wanting to go home, did inform him that we are awaiting call back from [facility]. I droop has significantly improved, plan to give him a trial of something to eat and drink to better assess his original complaints of difficulty with swallowing. Forced vital capacity is well within normal limits. 2030: Patient reports that swallowing has improved, chest tightness has resolved. 2100: I spoke with Neurology, Dr. Shipley, who agrees that given that patient's symptoms have improved that he should receive the 10 mg of dexamethasone but be observed to ensure no worsening of symptoms. He reports that if patient's symptoms do worsen then they will accept in transfer for plasma exchange. Patient can not receive IVIG secondary to hemolytic reaction. 2104: I discussed the case with inpatient hospitalist who accepts admission. Differential Diagnosis Differential Diagnoses: The differential diagnosis associated with the presentation includes See above Admission/Observation Consideration of admission/observation: Escalation of care including admission/observation considered See above Consult Healthcare Provider Management of the patient was discussed with: Hospitalist See above Lab Data MDM Lab Attestation statement: I reviewed the patient's lab results. See above 09/24/24 18:03 09/24/24 18:03 Labs: Lab Results 09/24/24 09/24/24 Range/Units 18:03 18:40 WBC 8.3 (4.8-10.8) X10*3/uL RBC 4.76 (4.60-5.80) X10*6/uL Hgb 13.9 L (14.0-18.0) g/dl Hct 42.1 (42.0-52.0) % MCV 88.4 (80.0-98.0) fL MCH 29.2 (27.0-33.0) pg MCHC 33.0 (31.0-36.0) g/dl RDW 14.5 (11.0-16.0) % Plt Count 179 (160-400) X10*3/uL MPV 10.7 (9.4-12.4) fL Immature Gran % (Auto) 0.5 H (0.0-0.4) % Neut % (Auto) 74.2 H (45-73) % Lymph % (Auto) 17.6 L (20-40) % [place] % (Auto) 7.1 (2-11) % Eos % (Auto) 0.1 (0-4) % Baso % (Auto) 0.5 (0-2) % Lymph # (Auto) 1.5 (1.2-4.9) X10*3/uL [place] # (Auto) 0.6 (0.1-1.2) X10*3/uL Eos # (Auto) 0.0 (0.0-0.4) X10*3/uL Baso # (Auto) 0.0 (0.0-0.2) X10*3/uL Abs Immat Gran (auto) 0.04 H (0.00-0.03) X10*3/uL Absolute Neuts (auto) 6.2 (2.0-8.3) x10*3/uL Absolute Nucleated RBC 0.000 (0.0-0.012) X10*3/uL Nucleated RBC % (auto) 0.0 (0.0-0.2) /100WBC ESR 5 (0-15) MM/HR Sodium 141 (135-145) mmol/L Potassium 3.8 (3.3-5.1) mmol/L Chloride 106 (96-108) mmol/L Carbon Dioxide 26 (22-29) mmol/L Anion Gap 13 (12-20) BUN 17 H (9-16) mg/dL Creatinine 0.78 (0.5-1.4) mg/dL Estim Creat Clear Calc 130.5 Estimated GFR > 60 Random Glucose 116 H (60-115) mg/dL Calcium 9.2 (8.4-10.2) mg/dL Magnesium 1.7 (1.6-2.6) mg/dL Total Bilirubin 0.7 (0.0-1.0) mg/dL Direct Bilirubin 0.3 (0.0-0.5) mg/dL AST 33 (5-37) U/L ALT 52 H (0-40) U/L Alkaline Phosphatase 69 (39-117) U/L Troponin I High Sens < 2.7 (<3.5-35.0) ng/L C-Reactive Protein < 0.04 (< or = 0.50) mg/dL Total Protein 7.1 (6.5-8.0) g/dL Albumin 4.2 (3.5-5.0) g/dL Independent Interpretation I performed an independent interpretation of an: EKG Interpretation: See above External Record Review External record reviewed: Prior outpatient labs and Prior outpatient radiology Discharge Plan Discharge Clinical Impression: Myasthenia gravis with exacerbation Patient Disposition: Admitted As Inpatient Print Language: Northern Irish
[2024-09-24 18:09] LABS: MANUAL DIFF FLAG NO
[2024-09-24 18:10] LABS: Hematocrit 42.1 % (42.0-52.0); Hemoglobin 13.9 g/dl (14.0-18.0); Imm Gran Abs Auto 0.04 X10*3/uL (0.00-0.03); Imm Gran Pct Auto 0.5 % (0.0-0.4); Lymphocytes Absolute Auto 1.5 X10*3/uL (1.2-4.9); Mean Corpuscular HGB Conc 33.0 g/dl (31.0-36.0); Mean Corpuscular Hemoglobin 29.2 pg (27.0-33.0); Mean Corpuscular Volume 88.4 fL (80.0-98.0); NRBC Abs Auto 0.000 X10*3/uL (0.0-0.012); NRBC Pct Auto 0.0 /100WBC (0.0-0.2); Platelet Count 179 X10*3/uL (160-400); Red Blood Count 4.76 X10*6/uL (4.60-5.80); White Blood Count 8.3 X10*3/uL (4.8-10.8)
[2024-09-24 18:27] LABS: Alanine Aminotransferase 52 U/L (0-40); Albumin Level 4.2 g/dL (3.5-5.0); Alkaline Phosphatase 69 U/L (39-117); Anion Gap 13 (12-20); Aspartate Amino Transferase 33 U/L (5-37); Blood Urea Nitrogen 17 mg/dL (9-16); Calcium 9.2 mg/dL (8.4-10.2); Carbon Dioxide 26 mmol/L (22-29); Chloride 106 mmol/L (96-108); Creatinine Clr Calc Pharmacy 130.5; Estimated Glomerular Filt Rate > 60; Magnesium 1.7 mg/dL (1.6-2.6); Potassium 3.8 mmol/L (3.3-5.1); Sodium 141 mmol/L (135-145); Total Protein 7.1 g/dL (6.5-8.0)
[2024-09-24 18:30] VITALS: BP 133/75; PULSE 63; RESP 20; TEMP 36.4; O2SAT 97
--- NOTE | 2024-09-24 18:33 | ECG_ITS ---
Test Reason : WEAKNESS, DIZZINESS Blood Pressure : */* mmHG Vent. Rate : 62 BPM Atrial Rate : 62 BPM P-R Int : 146 ms QRS Dur : 152 ms QT Int : 442 ms P-R-T Axes : 43 -27 12 degrees QTcB Int : 448 ms Normal sinus rhythm Right bundle branch block Abnormal ECG When compared with ECG of 15-May-2023 12:52, No significant change was found Referred By: Generic ED Physician Electronically Signed By: SIMBA BROWN
[2024-09-24 19:07] LABS: Troponin-I High Sensitivity < 2.7 ng/L (<3.5-35.0)
--- NOTE | 2024-09-24 19:36 | PC.RT ---
NIP -4.0 with good patient effort FVC 4.18L with good patient effort
--- NOTE | 2024-09-24 20:29 | PC.NURSE ---
PO trial completed per MD order with saltine crackers and apple juice. Patient reports some improvement in ability to swallow fluids and food, however reports he does not feel at baseline. Patient reports food and fluids do not get stuck in his throat any longer but his throat muscles feel stiff requiring multiple swallows to propel food and fluids down his throat. Dr. Castanon notified.
--- NOTE | 2024-09-24 22:22 | PM.IMHP ---
History of Present Illness Date of Service: 09/24/24 Attending physician on admission: Nick Belcher Chief Complaint: Myasthenia symptoms Pt is a 69 yo male with PMH NIDDM, HTN, Obesity, hiatal hernia, GERD, MG on mestinoin, WILKERSON, GABY no longer on CPAP due to wt loss, presents to ED with left eye droop, chest pressure and noted dysphagia since completing Cipro for recent UTI. Pt has list of medications that are contraindicated for pt's with MG but did not realize CIPRO was a fluoroquinolone. Pt beleives his symptoms stem from taking CIPRO for recent UTI. Pt was switched to macrobid and completed treatment yesterday. Pt has been keeping in tough with his Neuorologist at [facility], Dr Noel and was started on a prednisone taper this past Thursday. While n Cipro, Pt started having issues with left eye droop, chest pressure and dysphagia. Since receiving decadron in the ED, pt's symptoms have improved greatly. 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 Pt's last MG exacerbation was 6 years ago in [place] and he was hospitalized for one week. Pt has been following with [facility] neurology and has had discussions about thymus removal but no plan is in place currently. Pt is on mestinoin BID. Pt is planning on switching to [facility] neurology for care mgmt of his MG. Pt normally has trouble walking due to his chronic neuropathy and uses a cane usually. Pt denies any recent falls or injuries. Pt no longer drives as the act causes him significant anxiety. Review of Systems Review of Systems: Pt denies chest pain, chest pressure, SOB at rest or with exertion, diarrhea or constipation. Pt is having generalized abdominal discomfort that comes and goes and follows with GI. Pt's last BM was in the AM today. No straining reported. Pt denies any edema in lower ext or hypoglycemia. Pt does not believe he has aspirated noting the dysphagia which has improved since arrival. Pt denies BEARD or visual changes. Left eye dropp has improved. Pt received 10 decadron in the ED. Yes all other systems are reviewed and are negative [facility] Medical History Lipoma Coronary atherosclerosis Costochondritis Elevated cholesterol WILKERSON (nonalcoholic steatohepatitis) Sleep apnea Normocytic anemia Hypertension Diabetes Myasthenia gravis Cognitive capacity: A/O X3 Functional capacity: uses cane/walker Family History Mother No problems noted. Father No problems noted. Surgical History S/P excision of lipoma (05/11/23) Hx laparoscopic cholecystectomy H/O colonoscopy Hx of partial thyroidectomy Hx of cardiac catheterization H/O meniscectomy of right knee H/O spinal fusion Social History Household Members: Spouse and Children Housing: House Are you a primary hourly caregiver to a significant other at home: No Do you presently have visiting nurse or other home services: No Alcohol intake: never Patient Tobacco Use Status: Never used Tobacco Smoked in Last 30 Days: No Use of substances other than those prescribed or required for medical reasons: No Advance Directives: No Advance Directives Information Provided: Yes service: No Current occupational status: disabled Ebola Risk: Travel/Contact With Anyone From Affected Area/s: No Has Patient Experienced Ebola Symptoms: No Meds Allergies Allergy/AdvReac Type Severity Reaction Status Date / Time No Known Allergies (No Known Allergy Verified 09/24/24 17:53 Allergies*) Active Medications: Current Medications Acetaminophen (Acetaminophen 325 Mg Tablet) 650 mg PO Q6H PRN PRN Reason: Pain, Mild 1-3,fever,headache Albuterol/Ipratropium (Albuterol/Iprat 2.5/0.5mg 3 Ml Ampul.Neb) 3 ml INHALE Q4H PRN PRN Reason: Shortness of Breath/Wheezing Calcium Carbonate (Calcium Carbonate 750 Mg Tab.Chew) 750 mg PO Q4H PRN PRN Reason: Heartburn Enoxaparin Sodium (Enoxaparin Sodium 40 Mg/0.4 Ml Syringe) 40 mg SUBCUT Q24H JORGE Magnesium Hydroxide (Milk Of Magnesia 30 Ml Oral.Susp) 30 ml PO DAILY PRN PRN Reason: Constipation Melatonin (Melatonin 3 Mg Tablet) 6 mg PO BEDTIME PRN PRN Reason: Insomnia Ondansetron HCl (Ondansetron Hcl 4 Mg/2 Ml Vial) 4 mg IVPUSH Q8H PRN PRN Reason: Nausea and Vomiting Polyethylene Glycol (Polyethylene Glycol 3350 17 Gm Powd.Pack) 17 gm PO DAILY PRN PRN Reason: Constipation Senna (Sennosides 8.6 Mg Tablet) 17.2 mg PO BEDTIME JORGE Sodium Chloride (0.9 % Sodium Chloride Flush 3 Ml Syringe) 3 ml IVFLUSH QSHIFT [facility] Home Medications ?Medication ?Instructions ?Recorded ?Confirmed ?Last Taken ?Type calcium 600 mg (as 1 tab PO BID 02/28/22 04/18/24 06/07/22 09:00 History carbonate)-vitamin D3 10 mcg (400 unit) tablet azathioprine 50 mg tablet 50 mg PO BID 06/07/22 04/18/24 05/11/23 01:30 History benzonatate 100 mg capsule 100 mg PO TID PRN cough 06/07/22 04/18/24 06/07/22 09:00 History cholecalciferol (vitamin D3) 25 25 mcg PO DAILY 06/07/22 04/18/24 06/07/22 09:00 History mcg (1,000 unit) tablet cyanocobalamin (vitamin B-12) 1,000 mcg PO DAILY 06/07/22 04/18/24 06/07/22 09:00 History 1,000 mcg tablet gabapentin 800 mg tablet 800 mg PO BID 06/07/22 04/18/24 05/15/23 History metformin 500 mg tablet,extended 500 mg PO BEDTIME 06/07/22 04/18/24 06/06/22 History release 24 hr pyridostigmine bromide 60 mg tablet 60 mg PO BID 06/07/22 04/18/24 06/07/22 09:00 History simethicone 125 mg capsule (Gas 125 mg PO TID PRN bloating 06/07/22 04/18/24 06/07/22 09:00 History Relief Extra Strength) brinzolamide 1 %-brimonidine 0.2 % 1 drp ophthalmic (eye) BID 06/08/22 04/18/24 06/07/22 09:00 History eye drops,suspension (Simbrinza) aspirin 81 mg chewable tablet 81 mg PO DAILY 07/21/22 04/18/24 05/07/23 History Physical Exam Vital Signs and Narrative: Vital Signs: Last Vital Signs Temp 97.5 F 09/24/24 18:30 Pulse 63 09/24/24 18:30 Resp 20 09/24/24 18:30 BP 133/75 09/24/24 18:30 Pulse Ox 97 09/24/24 18:30 O2 Del Method Room Air 09/24/24 18:30 BMI result Body Mass Index 38.2 Alert and orientated X3, able to give good history. Neuro: CN II-X11 intact, no deficits, visual acuity intact, otherwsie reassuring EYES: PERRLA, EOM intact, vey mild left eye droop ENT: hearing intact, uvula midline, lips moist, nares patent no epistaxis, denies dysphagia as this has improved Cardiac: S1 S2 RRR, no murmur, no JVD, no edema in Lower ext Pulmonary: lungs clear to auscultation B Abdominal: BS active in all 4 quadrants, no guarding, tenderness, rebounding MSK: strength 5/5 upper and lower extremities : no CVA tenderness no bladder distension Extremities: no edema in lower extremities, PT and DP pulses palpable +2 Psych: mood stable, judgement and insight good Skin: intact Results Labs 09/24/24 18:03 09/24/24 18:03 Labs: Laboratory Results - last 24 hr 09/24/24 18:03 MCV 88.4 MCH 29.2 MCHC 33.0 RDW 14.5 Plt Count 179 MPV 10.7 Immature Gran % (Auto) 0.5 H Neut % (Auto) 74.2 H Lymph % (Auto) 17.6 L [place] % (Auto) 7.1 Eos % (Auto) 0.1 Baso % (Auto) 0.5 Lymph # (Auto) 1.5 [place] # (Auto) 0.6 Eos # (Auto) 0.0 Baso # (Auto) 0.0 Abs Immat Gran (auto) 0.04 H Absolute Neuts (auto) 6.2 Absolute Nucleated RBC 0.000 Nucleated RBC % (auto) 0.0 ESR 5 Anion Gap 13 Estim Creat Clear Calc 130.5 Estimated GFR > 60 Random Glucose 116 H Calcium 9.2 Magnesium 1.7 Total Bilirubin 0.7 Direct Bilirubin 0.3 AST 33 ALT 52 H Alkaline Phosphatase 69 C-Reactive Protein < 0.04 Total Protein 7.1 Albumin 4.2 ECG Attestation: I personally reviewed and interpreted this ECG as follows: (NSR RBBB (not new) QTc 448 ) Prior ECG tracings: available for review Assessment and Plan (1) Myasthenia gravis with exacerbation: Status: Acute Plan Pt is a 69 yo male with PMH NIDDM, HTN, Obesity, hiatal hernia, GERD, MG on mestinoin, WILKERSON, GABY no longer on CPAP due to wt loss, presents to ED with left eye droop, and noted dysphagia since completing Cipro for recent UTI. Pt has list of medications that are contraindicated for pt's with MG but did not realize CIPRO was a fluoroquinolone. Pt beleives his symptoms stem from taking CIPRO for recent UTI. Pt completed treatment yesterday. Pt started having issues with left eye droop, chest pressure and dysphagia which have all improved. Pt is planning on transferring care for MG to [facility] neurology group. Myasthenia gravis with exacerbation Neurology consulted Pt received decadron, will start methylprednisolone 80 mg X1 tonight, further steroid dosing per neuro - reviewed with attending Dr Belcher NIF testing indicated normal FVC and pulmonary capacity, testing reassuring indicating no crisis Symptoms are improving, pt does not require transfer to [facility] for plasma pheresis Pt cannot receive IVIG due to hemolytic anemia Continue mestinoin once med rec completed Left eye droop and chest pressure resolved Acute dysphagia Resvoled No indication for ST eval or further neurological diagnostics Recent UTI UA negative today for UTI NIDDM SSI Diabetic diet Most recent A1C less than 6.0 HTN BP stable Continue ARB once med rec completed low salt diet DVT prophylaxis: lovenox MED REC PENDING FULL CODE STATUS Quality Stroke Does the patient have a stroke diagnosis?: No Reason for No Anti-thrombotic by Day Two: N/A - Med Ordered VTE Prior VTE?: No VTE Risk Level:: Medical - moderate - high VTE Device Contraindication: N/A - Device Ordered VTE Drug Contraindication: N/A - Med Ordered
[2024-09-24 22:45] LABS: Appearance Urine Clear; Glucose Urine UA Negative (Negative); PH 6.0 (5.0-9.0); Specific Gravity - Urine 1.025 (1.005-1.025)
[2024-09-25] MEDS: 0.9 % Sodium Chloride Flush 3 ML SYRINGE IVFLUSH ×2 (01:39→06:56)
[2024-09-25 02:31] VITALS: PULSE 89; RESP 22; O2SAT 97
[2024-09-25 05:44] VITALS: BP 106/59; PULSE 56; RESP 12; O2SAT 98
[2024-09-25 06:37] LABS: MANUAL DIFF FLAG NO
[2024-09-25 06:53] LABS: Anion Gap 13 (12-20); Blood Urea Nitrogen 16 mg/dL (9-16); Calcium 8.8 mg/dL (8.4-10.2); Carbon Dioxide 25 mmol/L (22-29); Chloride 105 mmol/L (96-108); Creatinine Clr Calc Pharmacy 145.4; Estimated Glomerular Filt Rate > 60; Potassium 4.3 mmol/L (3.3-5.1); Sodium 139 mmol/L (135-145)
[2024-09-25 07:18] LABS: Hematocrit 42.6 % (42.0-52.0); Hemoglobin 14.2 g/dl (14.0-18.0); Imm Gran Abs Auto 0.04 X10*3/uL (0.00-0.03); Imm Gran Pct Auto 0.6 % (0.0-0.4); Lymphocytes Absolute Auto 0.6 X10*3/uL (1.2-4.9); Mean Corpuscular HGB Conc 33.3 g/dl (31.0-36.0); Mean Corpuscular Hemoglobin 29.4 pg (27.0-33.0); Mean Corpuscular Volume 88.2 fL (80.0-98.0); NRBC Abs Auto 0.000 X10*3/uL (0.0-0.012); NRBC Pct Auto 0.0 /100WBC (0.0-0.2); Platelet Count 188 X10*3/uL (160-400); Red Blood Count 4.83 X10*6/uL (4.60-5.80); White Blood Count 6.2 X10*3/uL (4.8-10.8)
--- NOTE | 2024-09-25 08:35 | PHA.MEDREC ---
Pharmacy Consult ? Medication Reconciliation Pharmacy has completed the medication reconciliation. Spoke with patient at bedside, he knew most of his medications and his knew others. He states he stopped the HCTZ and Gabapentin and he does not take Sucralfate that he knows of.
[2024-09-25] MEDS: methylPREDNISolone Sod Succ 1,000 MG in 0.9 % Sodium Chloride 50 ML 66 MG IV (08:50)
--- NOTE | 2024-09-25 09:45 | PC.NURSE ---
Patient failed bedside swallow eval. Stated he feels uncomfortable swallowing his pills, requiring multiple swallows for tsp of water and feeling like it is sitting in throat. Pt believes symptoms may improve after solu-medrol infusion, will reassess once infusion completed.
[2024-09-25] MEDS: Latanoprost 0.005 % Ophth Sol 2.5 ML DROPS 1 DROP EYE-BOTH ×2 (10:48→22:46)
--- NOTE | 2024-09-25 12:18 | PC.NURSE ---
Pt continues to feel uncomfortable swallowing pills whole and/or crushed and requests to hold AM meds. aware.
[2024-09-25 12:45] LABS: Glucose, Whole Blood 122 mg/dL (60-115)
--- NOTE | 2024-09-25 12:54 | MHC.CM.PN ---
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 PT VERIFIES PCP ON FILE AND EDUCATED ON AND WILL CONSIDER COMPLETING A HCP, PT AWARE HE SHOULD ASK FOR HIS CM IF HE DECIDES HE WOULD LIKE TO COMPLETE ONE.
--- NOTE | 2024-09-25 12:57 | HO.PM.IMPN ---
Subjective Subjective Date of Service: 09/25/24 Interval History: Still with difficulty swallowing. No other focal deficits Review of Systems Denies chest pain Denies shortness of breath Denies nausea vomiting diarrhea Denies fever chills Physical Exam Vital Signs: Vital Signs: Last Vital Signs Temp 97.5 F 09/24/24 18:30 Pulse 56 09/25/24 05:44 Resp 12 09/25/24 05:44 BP 106/59 L 09/25/24 05:44 Pulse Ox 98 09/25/24 05:44 O2 Del Method Room Air 09/25/24 05:44 BMI result Body Mass Index 38.2 Const: Other: Awake alert oriented x3 in no acute distress Resp: Other: Clear to auscultation bilaterally no rales rhonchi or wheezes Cardio: Other: No S4; positive S1-S2; no S3 murmurs rubs or gallops GI: Other: Soft nontender nondistended normoactive bowel sounds Extrem: Other: No edema bilaterally Objective Data Active Medications Acetaminophen (Acetaminophen 325 Mg Tablet) 650 mg PO Q6H PRN PRN Reason: Pain, Mild 1-3,fever,headache Albuterol/Ipratropium (Albuterol/Iprat 2.5/0.5mg 3 Ml Ampul.Neb) 3 ml INHALE Q4H PRN PRN Reason: Shortness of Breath/Wheezing Aspirin (Aspirin 81 Mg Tab.Chew) 81 mg PO DAILY [facility] Last Admin: 09/25/24 10:49 Dose: Not Given Documented By: COBY Non-Admin Reason: NPO Atorvastatin Calcium (Atorvastatin Calcium 40 Mg Tablet) 40 mg PO BEDTIME [facility] Last Admin: 09/25/24 10:49 Dose: Not Given Documented By: COBY Non-Admin Reason: NPO Azathioprine (Azathioprine 50 Mg Tablet) 50 mg PO BID [facility] Last Admin: 09/25/24 10:50 Dose: Not Given Documented By: COBY Non-Admin Reason: NPO Benzonatate (Benzonatate 100 Mg Capsule) 100 mg PO TID PRN PRN Reason: Cough Brimonidine Tartrate (Brimonidine Tartrate 0.2% Oph 5 Ml Bottle) 1 drop EYE-BOTH BID [facility] Calcium Carbonate (Calcium Carbonate 750 Mg Tab.Chew) 750 mg PO Q4H PRN PRN Reason: Heartburn Cyanocobalamin (Cyanocobalamin (Vitamin B-12) 1,000 Mcg Tablet) 1,000 mcg PO DAILY [facility] Last Admin: 09/25/24 10:50 Dose: Not Given Documented By: COBY Non-Admin Reason: NPO Dextrose (Dextrose 50 % 25 Gm/50 Ml Syringe) 25 gm IVPUSH Q15M PRN; Protocol PRN Reason: per Hypoglycemia Standing Ord. Dorzolamide HCl (Dorzolamide Hcl 2 % Ophth [place] 10 Ml Drpbtl) 1 drop EYE-BOTH TID [facility] Enoxaparin Sodium (Enoxaparin Sodium 40 Mg/0.4 Ml Syringe) 40 mg SUBCUT Q24H [facility] Last Admin: 09/24/24 23:39 Dose: 40 mg Documented By: IWONA Famotidine (Famotidine 20 Mg Tablet) 20 mg PO BID [facility] Last Admin: 09/25/24 10:50 Dose: Not Given Documented By: COBY Non-Admin Reason: NPO Glucose (Glucose Gel 15 Gm Gel..Gram.) 15 gm PO Q15M PRN; Protocol PRN Reason: per Hypoglycemia Standing Ord. Insulin Human Lispro (Insulin Lispro 100 Unit/Ml 3 Ml Vial) 0 unit SUBCUT QIDACHS [facility]; Protocol Last Admin: 09/25/24 12:42 Dose: Not Given Documented By: JA Non-Admin Reason: No Insulin Coverage Latanoprost (Latanoprost 0.005 % Ophth Ashley 2.5 Ml Drops) 1 drop EYE-BOTH BEDTIME [facility] Last Admin: 09/25/24 10:48 Dose: 1 drop Documented By: COBY Magnesium Hydroxide (Milk Of Magnesia 30 Ml Oral.Susp) 30 ml PO DAILY PRN PRN Reason: Constipation Melatonin (Melatonin 3 Mg Tablet) 6 mg PO BEDTIME PRN PRN Reason: Insomnia Metformin HCl (Metformin Hcl Er 500 Mg Tab.Er.24h) 500 mg PO BEDTIME [facility] Last Admin: 09/25/24 10:50 Dose: Not Given Documented By: COBY Non-Admin Reason: NPO Ondansetron HCl (Ondansetron Hcl 4 Mg/2 Ml Vial) 4 mg IVPUSH Q8H PRN PRN Reason: Nausea and Vomiting Polyethylene Glycol (Polyethylene Glycol 3350 17 Gm Powd.Pack) 17 gm PO DAILY PRN PRN Reason: Constipation Pyridostigmine [place] (Pyridostigmine [place] 60 Mg Tablet) 60 mg PO BID [facility] Last Admin: 09/25/24 10:50 Dose: Not Given Documented By: COBY Non-Admin Reason: NPO Senna (Sennosides 8.6 Mg Tablet) 17.2 mg PO BEDTIME [facility] Sodium Chloride (0.9 % Sodium Chloride Flush 3 Ml Syringe) 3 ml IVFLUSH QSHIFT [facility] Last Admin: 09/25/24 06:56 Dose: 3 ml Documented By: JA Valsartan (Valsartan 40 Mg Tablet) 40 mg PO DAILY [facility] Last Admin: 09/25/24 10:51 Dose: Not Given Documented By: COBY Non-Josias Reason: NPO Vitamin D (Cholecalciferol (Vitamin D3) 25 Mcg Tablet) 25 mcg PO DAILY [facility] Last Admin: 09/25/24 10:50 Dose: Not Given Documented By: COBY Non-Admin Reason: NPO Labs 09/25/24 06:14 09/25/24 06:14 Labs: Laboratory Results - last 24 hr 09/24/24 09/24/24 09/25/24 18:03 22:38 06:14 MCV 88.4 88.2 MCH 29.2 29.4 MCHC 33.0 33.3 RDW 14.5 14.1 Plt Count 179 188 MPV 10.7 11.0 Immature Gran % (Auto) 0.5 H 0.6 H Neut % (Auto) 74.2 H 89.3 H Lymph % (Auto) 17.6 L 9.5 L [place] % (Auto) 7.1 0.6 L Eos % (Auto) 0.1 0.0 Baso % (Auto) 0.5 0.0 Lymph # (Auto) 1.5 0.6 L [place] # (Auto) 0.6 0.0 L Eos # (Auto) 0.0 0.0 Baso # (Auto) 0.0 0.0 Abs Immat Gran (auto) 0.04 H 0.04 H Absolute Neuts (auto) 6.2 5.6 Absolute Nucleated RBC 0.000 0.000 Nucleated RBC % (auto) 0.0 0.0 ESR 5 Anion Gap 13 13 Estim Creat Clear Calc 130.5 145.4 Estimated GFR > 60 > 60 POC Glucose Random Glucose 116 H 136 H Calcium 9.2 8.8 Magnesium 1.7 Total Bilirubin 0.7 Direct Bilirubin 0.3 AST 33 ALT 52 H Alkaline Phosphatase 69 C-Reactive Protein < 0.04 Total Protein 7.1 Albumin 4.2 Urine Color Dark Yellow Urine Appearance Clear Urine pH 6.0 Ur Specific [place] 1.025 Urine Protein Negative Urine Glucose (UA) Negative Urine Ketones Negative Urine Blood Negative Urine Nitrite Negative Ur Leukocyte Esterase Negative 09/25/24 12:41 MCV MCH MCHC RDW Plt Count MPV Immature Gran % (Auto) Neut % (Auto) Lymph % (Auto) [place] % (Auto) Eos % (Auto) Baso % (Auto) Lymph # (Auto) [place] # (Auto) Eos # (Auto) Baso # (Auto) Abs Immat Gran (auto) Absolute Neuts (auto) Absolute Nucleated RBC Nucleated RBC % (auto) ESR Anion Gap Estim Creat Clear Calc Estimated GFR POC Glucose 122 H Random Glucose Calcium Magnesium Total Bilirubin Direct Bilirubin AST ALT Alkaline Phosphatase C-Reactive Protein Total Protein Albumin Urine Color Urine Appearance Urine pH Ur Specific [place] Urine Protein Urine Glucose (UA) Urine Ketones Urine Blood Urine Nitrite Ur Leukocyte Esterase Assessment and Plan (1) Myasthenia gravis with exacerbation: Status: Acute (2) DMII (diabetes mellitus, type 2): Status: Acute Plan Pt is a 69 yo male with PMH NIDDM, HTN, Obesity, hiatal hernia, GERD, MG on mestinoin, WILKERSON, GABY no longer on CPAP due to wt loss, presents to ED with left eye droop, and noted dysphagia since completing Cipro for recent UTI. Pt has list of medications that are contraindicated for pt's with MG but did not realize CIPRO was a fluoroquinolone. Pt beleives his symptoms stem from taking CIPRO for recent UTI. Pt completed treatment yesterday. Pt started having issues with left eye droop, chest pressure and dysphagia which have all improved. Pt is planning on transferring care for MG to [facility] [place] neurology group. 1. Myasthenia gravis with exacerbation -methylprednisolone 1 g IV q.d. x5 days ordered -continues with difficulty swallowing... Speech eval in a.m. -observe on telemetry -Neurology consulted 2. NIDDM -acceptable control on current therapies -lispro correctional scale -adjust as indicated (likely rise secondary to steroids) 3. Hypertension -acceptable control off therapies -add back when clinically appropriate Lovenox Full code Quality Stroke Does the patient have a stroke diagnosis?: No Reason for No Anti-thrombotic by Day Two: N/A - Med Ordered VTE Prior VTE?: No VTE Risk Level:: Medical - moderate - high VTE Device Contraindication: N/A - Device Ordered VTE Drug Contraindication: N/A - Med Ordered
[2024-09-25 13:24] VITALS: BP 121/81; PULSE 63; RESP 20; TEMP 36.7; O2SAT 95
[2024-09-25] MEDS: Lactated Ringers 1,000 ML 100 ML IVCONT ×2 (13:49→22:53)
--- NOTE | 2024-09-25 14:50 | P.CNNE_ITS ---
History of Present Illness Data of Consult Service Date: 09/25/24 Primary Care Provider: Christopher Wang MD [facility] Reason for consult: Myasthenia gravis exacerbation 69 years old man who presented in 2016 with difficulty swallowing and speech and was diagnosed with antibody positive myasthenia gravis. Initially he was treated with prednisone and Mestinon. My last interaction with him was in 2017 when he apparently switch to [facility] neurology. He was he saw his neurologist couple of days ago and was prescribed prednisone taper. He was still complaining of difficulty swallowing. Review of Systems 2 Review of Systems: Difficulty speaking and swallowing with a recent treatment for [facility] Past Medical History Medical History Lipoma Coronary atherosclerosis Costochondritis Elevated cholesterol WILKERSON (nonalcoholic steatohepatitis) Sleep apnea Normocytic anemia Hypertension Diabetes Myasthenia gravis Family History Family History Mother No problems noted. Father No problems noted. Surgical History Surgical History S/P excision of lipoma (05/11/23) Hx laparoscopic cholecystectomy H/O colonoscopy Hx of partial thyroidectomy Hx of cardiac catheterization H/O meniscectomy of right knee H/O spinal fusion Social History Social History Household Members: Spouse and Children Housing: House Are you a primary home care associate to a significant other at home: No Do you presently have visiting nurse or other home services: No Alcohol intake: never Patient Tobacco Use Status: Never used Tobacco Smoked in Last 30 Days: No Use of substances other than those prescribed or required for medical reasons: No Advance Directives: No Advance Directives Information Provided: Yes service: No Current occupational status: disabled Travel History Ebola Risk: Travel/Contact With Anyone From Affected Area/s: No Has Patient Experienced Ebola Symptoms: No Meds Allergies Allergy/AdvReac Type Severity Reaction Status Date / Time No Known Allergies (No Known Allergy Verified 09/24/24 17:53 Allergies*) Active Medications: Current Medications Acetaminophen (Acetaminophen 325 Mg Tablet) 650 mg PO Q6H PRN PRN Reason: Pain, Mild 1-3,fever,headache Albuterol/Ipratropium (Albuterol/Iprat 2.5/0.5mg 3 Ml Ampul.Neb) 3 ml INHALE Q4H PRN PRN Reason: Shortness of Breath/Wheezing Aspirin (Aspirin 81 Mg Tab.Chew) 81 mg PO DAILY [facility] Last Admin: 09/25/24 10:49 Dose: Not Given Atorvastatin Calcium (Atorvastatin Calcium 40 Mg Tablet) 40 mg PO BEDTIME [facility] Last Admin: 09/25/24 10:49 Dose: Not Given Azathioprine (Azathioprine 50 Mg Tablet) 50 mg PO BID [facility] Last Admin: 09/25/24 10:50 Dose: Not Given Benzonatate (Benzonatate 100 Mg Capsule) 100 mg PO TID PRN PRN Reason: Cough Brimonidine Tartrate (Brimonidine Tartrate 0.2% Oph 5 Ml Bottle) 1 drop EYE- BOTH BID [facility] Calcium Carbonate (Calcium Carbonate 750 Mg Tab.Chew) 750 mg PO Q4H PRN PRN Reason: Heartburn Cyanocobalamin (Cyanocobalamin (Vitamin B-12) 1,000 Mcg Tablet) 1,000 mcg PO DAILY [facility] Last Admin: 09/25/24 10:50 Dose: Not Given Dextrose (Dextrose 50 % 25 Gm/50 Ml Syringe) 25 gm IVPUSH Q15M PRN; Protocol PRN Reason: per Hypoglycemia Standing Ord. Dorzolamide HCl (Dorzolamide Hcl 2 % Ophth [place] 10 Ml Drpbtl) 1 drop EYE-BOTH TID [facility] Enoxaparin Sodium (Enoxaparin Sodium 40 Mg/0.4 Ml Syringe) 40 mg SUBCUT Q24H [facility] Last Admin: 09/24/24 23:39 Dose: 40 mg Famotidine (Famotidine 20 Mg Tablet) 20 mg PO BID [facility] Last Admin: 09/25/24 10:50 Dose: Not Given Glucose (Glucose Gel 15 Gm Gel..Gram.) 15 gm PO Q15M PRN; Protocol PRN Reason: per Hypoglycemia Standing Ord. Lactated Ringer's (Lr) 1,000 mls @ 100 mls/hr IVCONT .Q10H [facility] Last Admin: 09/25/24 13:49 Dose: 100 mls/hr Insulin Human Lispro (Insulin Lispro 100 Unit/Ml 3 Ml Vial) 0 unit SUBCUT QIDACHS [facility]; Protocol Last Admin: 09/25/24 12:42 Dose: Not Given Latanoprost (Latanoprost 0.005 % Ophth [place] 2.5 Ml Drops) 1 drop EYE-BOTH BEDTIME [facility] Last Admin: 09/25/24 10:48 Dose: 1 drop Magnesium Hydroxide (Milk Of Magnesia 30 Ml Oral.Susp) 30 ml PO DAILY PRN PRN Reason: Constipation Melatonin (Melatonin 3 Mg Tablet) 6 mg PO BEDTIME PRN PRN Reason: Insomnia Metformin HCl (Metformin Hcl Er 500 Mg Tab.Er.24h) 500 mg PO BEDTIME [facility] Last Admin: 09/25/24 10:50 Dose: Not Given Ondansetron HCl (Ondansetron Hcl 4 Mg/2 Ml Vial) 4 mg IVPUSH Q8H PRN PRN Reason: Nausea and Vomiting Polyethylene Glycol (Polyethylene Glycol 3350 17 Gm Powd.Pack) 17 gm PO DAILY PRN PRN Reason: Constipation Pyridostigmine [place] (Pyridostigmine [place] 60 Mg Tablet) 60 mg PO BID [facility] Last Admin: 09/25/24 10:50 Dose: Not Given Senna (Sennosides 8.6 Mg Tablet) 17.2 mg PO BEDTIME [facility] Sodium Chloride (0.9 % Sodium Chloride Flush 3 Ml Syringe) 3 ml IVFLUSH QSHIFT [facility] Last Admin: 09/25/24 06:56 Dose: 3 ml Valsartan (Valsartan 40 Mg Tablet) 40 mg PO DAILY [facility] Last Admin: 09/25/24 10:51 Dose: Not Given Vitamin D (Cholecalciferol (Vitamin D3) 25 Mcg Tablet) 25 mcg PO DAILY [facility] Last Admin: 09/25/24 10:50 Dose: Not Given Home Medications ?Medication ?Instructions ?Recorded ?Confirmed ?Last Taken ?Type calcium 600 mg (as 1 tab PO BID 02/28/2209/24/24 09:00 History carbonate)-vitamin D3 10 mcg (400 unit) tablet azathioprine 50 mg tablet 50 mg PO BID 06/07/2209/24/24 09:00 History benzonatate 100 mg capsule 100 mg PO TID PRN cough 09/25/24 09/24/24 09:00 History cholecalciferol (vitamin D3) 25 25 mcg PO DAILY 09/25/24 09/24/24 09:00 History mcg (1,000 unit) tablet cyanocobalamin (vitamin B-12) 1,000 mcg PO DAILY 06/0709/25/24 09/24/24 09:00 History 1,000 mcg tablet metformin 500 mg tablet,extended 500 mg PO BEDTIME 09/25/24 09/24/24 09:00 History release 24 hr pyridostigmine bromide 60 mg tablet 60 mg PO BID 06/0709/25/24 09/24/24 09:00 History simethicone 125 mg capsule (Gas 125 mg PO TID PRN bloa ting 06/07/22 09/25/24 09/24/24 09:00 History Relief Extra Strength) brinzolamide 1 %-brimonidine 0.2 % 1 drp ophthalmic (e ye) BID 06/08/22 09/25/24 09/24/24 09:00 History eye drops,suspension (Simbrinza) aspirin 81 mg chewable tablet 81 mg PO DAILY 07/21/22 09/25/24 09/24/24 09:00 History famotidine 20 mg tablet 20 mg PO BID 09/25/2409/24/24 09:00 History latanoprost 0.005 % eye drops 1 drp ophthalmic (eye) B EDTIME 09/25/24 09/25/24 09/24/24 09:00 History prednisone 10 mg tablet See Taper PO DAILY 09/25/24 09/25/24 09/24/24 09:00 History Physical Exam 2 Vital Signs: Vital Signs: Last Vital Signs Temp 98.0 F 09/25/24 13:24 Pulse 63 09/25/24 13:24 Resp 20 09/25/24 13:24 BP 121/81 09/25/24 13:24 Pulse Ox 95 09/25/24 13:24 O2 Del Method Room Air 09/25/24 13:24 BMI result Body Mass Index 38.2 Neuro: Other: He is alert and awake with normal spontaneity of speech fluency comprehension and affect. Face is symmetrical. There was no definite ptosis. No significant weakness in limbs was noted. Plantars were flexor. Speech was normal. He was able to count up to 24 in 1 breath. Results Labs 09/25/24 06:14 09/25/24 06:14 Labs: Short CBC 09/24/24 09/25/24 Range/Units 18:03 06:14 WBC 8.3 6.2 (4.8-10.8) X10*3/uL Hgb 13.9 L 14.2 (14.0-18.0) g/dl Hct 42.1 42.6 (42.0-52.0) % Plt Count 179 188 (160-400) X10*3/uL BMP 09/24/24 09/25/24 18:03 06:14 Sodium 141 139 Potassium 3.8 4.3 Chloride 106 105 Carbon Dioxide 26 25 BUN 17 H 16 Creatinine 0.78 0.70 Calcium 9.2 8.8 Liver Function 09/24/24 Range/Units 18:03 Total Bilirubin 0.7 (0.0-1.0) mg/dL Direct Bilirubin 0.3 (0.0-0.5) mg/dL AST 33 (5-37) U/L ALT 52 H (0-40) U/L Alkaline Phosphatase 69 (39-117) U/L Albumin 4.2 (3.5-5.0) g/dL Urine 09/24/24 Range/Units 22:38 Urine Color Dark Yellow Urine Appearance Clear Urine pH 6.0 (5.0-9.0) Ur Specific [place] 1.025 (1.005-1.025) Urine Protein Negative (Neg-Trace) mg/dL Urine Glucose (UA) Negative (Negative) mg/dL Acetyl choline receptor antibody titers were high in 2016. CT chest in 2016 revealed 3 lung nodules probably granulomatous while time us was okay. CT chest done this time did not reveal significant abnormality. MRI of brain revealed mild microvascular ischemic changes. Assessment and Plan (1) Myasthenia gravis: Status: Acute 69 years old man with generalized antibody positive myasthenia gravis with negative chest CT for thymoma. He has been following Dr. Noel at [facility]. Recent worsening might have been due to antibiotic or Cipro he took. Apparently he was not considered a candidate for IVIG or plasmapheresis for 1 or the other reason. My recommendation at this time is to continue prednisone and follow-through with neurologist as an outpatient to figure out either continuing prednisone with azathioprine or opting for an alternate monoclonal antibody based drug. Procedures Date of Service Date of Service: 09/25/24
[2024-09-25 16:00] VITALS: BP 166/103; PULSE 70; RESP 14; TEMP 36.9; O2SAT 97
[2024-09-25] MEDS: Dorzolamide HCl 2 % Ophth Sol 10 ML DRPBTL 1 DROP EYE-BOTH ×2 (16:55→22:48)
[2024-09-25 17:59] LABS: Glucose, Whole Blood 136 mg/dL (60-115)
[2024-09-25 18:14] VITALS: BP 170/102
--- NOTE | 2024-09-25 18:15 | ECG_ITS ---
Test Reason : chest tightness Blood Pressure : */* mmHG Vent. Rate : 63 BPM Atrial Rate : * BPM P-R Int : * ms QRS Dur : 144 ms QT Int : 486 ms P-R-T Axes : * -19 20 degrees QTcB Int : 497 ms Sinus rhythm Right bundle branch block Abnormal ECG When compared with ECG of 24-Sep-2024 18:58, Poor data quality but no obvious changes Referred By: Lata Hernandez Electronically Signed By: Ritchie Richardson
--- NOTE | 2024-09-25 18:46 | PC.NURSE ---
Pt calls this RN to bedside for report of chest pain and wishes to speak with attending. A&Ox3 BP noted to be elevated. Skin is warm and dry Breaths and speech are even and unlabored. O2 sat WNL. Dr. Hassan to bedside. Pt expresses concern he is not receiving more treatment than IV steroids. Dr. Paiz reviews neurology assessment and chart with Pt. Pt is considering leaving [place] be [place] [facility] Pt will discuss with family and let nursing know his decision.
[2024-09-25 19:17] LABS: Troponin-I High Sensitivity < 2.7 ng/L (<3.5-35.0)
[2024-09-25 20:00] VITALS: BP 164/84; PULSE 80; RESP 20; TEMP 36.3; O2SAT 96
[2024-09-25 22:02] VITALS: BMI 38.0
[2024-09-25 22:04] LABS: Glucose, Whole Blood 138 mg/dL (60-115)
[2024-09-25] MEDS: Brimonidine Tartrate 0.2% Oph 5 ML BOTTLE 1 DROP EYE-BOTH (22:46)
[2024-09-26] VITALS (7 sets, daily range): BP systolic 114–141; BP diastolic 58–84; PULSE 51–74; RESP 18–20; TEMP 36.1–36.8; O2SAT 95–96
[2024-09-26 07:02] LABS: MANUAL DIFF FLAG NO
[2024-09-26 07:20] LABS: Hematocrit 41.5 % (42.0-52.0); Hemoglobin 14.0 g/dl (14.0-18.0); Imm Gran Abs Auto 0.05 X10*3/uL (0.00-0.03); Imm Gran Pct Auto 0.5 % (0.0-0.4); Lymphocytes Absolute Auto 0.8 X10*3/uL (1.2-4.9); Mean Corpuscular HGB Conc 33.7 g/dl (31.0-36.0); Mean Corpuscular Hemoglobin 29.7 pg (27.0-33.0); Mean Corpuscular Volume 88.1 fL (80.0-98.0); NRBC Abs Auto 0.000 X10*3/uL (0.0-0.012); NRBC Pct Auto 0.0 /100WBC (0.0-0.2); Platelet Count 190 X10*3/uL (160-400); Red Blood Count 4.71 X10*6/uL (4.60-5.80); White Blood Count 10.9 X10*3/uL (4.8-10.8)
[2024-09-26 07:29] LABS: Alanine Aminotransferase 55 U/L (0-40); Albumin Level 3.6 g/dL (3.5-5.0); Alkaline Phosphatase 59 U/L (39-117); Anion Gap 10 (12-20); Aspartate Amino Transferase 27 U/L (5-37); Blood Urea Nitrogen 21 mg/dL (9-16); Calcium 8.5 mg/dL (8.4-10.2); Carbon Dioxide 28 mmol/L (22-29); Chloride 107 mmol/L (96-108); Creatinine Clr Calc Pharmacy 151.5; Estimated Glomerular Filt Rate > 60; Potassium 4.1 mmol/L (3.3-5.1); Sodium 141 mmol/L (135-145); Total Protein 6.1 g/dL (6.5-8.0)
[2024-09-26 07:30] LABS: Glucose, Whole Blood 104 mg/dL (60-115)
[2024-09-26] MEDS: 0.9 % Sodium Chloride Flush 3 ML SYRINGE IVFLUSH (09:26)
[2024-09-26] MEDS: Dorzolamide HCl 2 % Ophth Sol 10 ML DRPBTL 1 DROP EYE-BOTH ×3 (09:28→23:03)
[2024-09-26] MEDS: Brimonidine Tartrate 0.2% Oph 5 ML BOTTLE 1 DROP EYE-BOTH ×2 (09:29→23:03)
[2024-09-26] MEDS: Lactated Ringers 1,000 ML 100 ML IVCONT ×2 (09:30→18:41)
[2024-09-26] MEDS: methylPREDNISolone Sod Succ 1,000 MG in 0.9 % Sodium Chloride 50 ML 66 MG IV (09:39)
--- NOTE | 2024-09-26 11:41 | MHC.SL.SWA ---
Speech Pathologist Impression: Significant pharyngeal dysphagia Risk of Aspiration Due to: Hx of Myesthenia Gravis Hx of aspiration Dysphasia Diet Status: Liquid Consistency and Strategies for Safe Swallow: Liquid Intake Recommendation: NPO Liquid Intake Strategies: Solid Food Consistency: Dietary Recommendations: NPO Additional Modifications to Solid Foods: Oral Medication Intake: NPO Please contact the pharmacy regarding appropriate crushable or liquid drug formulations that are available whenever modified delivery is recommended. Compensatory Strategies and Precautions to be Taken for Safe Swallow: Supervision While Eating and Drinking for Safe Swallow: PO with [employer] Foods to Avoid: Swallowing Recommended Treatments: Recommendation for Speech: Inpatient Speech Therapy Comment: Pt endorsed difficulty swallowing for the past several days. Pt agreed to trials, but upon first swallow of thins, pt experienced inability to swallow liquids, with overt s/s of aspiration (coughing, multiple swallows, expelling material). Trials discontinued. Education provided. Pt has excellent understanding of MG and agreed with NPO strict recc. Pt is anticipating neurologist consultation, endorsing improvements in the past with steroid treatment. [employer] following closely. Frequency/Duration: Daily M-F Date Range for Service Req: Timeline to reassess: Reading Teacher Clinican/Clinical Fellow: No Supervisory Statement: I have reviewed and agree with the student/clinical fellow's documentation: N/A Speech Language Pathologist: Shira Bee M.S., [facility]-[employer]
[2024-09-26 12:11] LABS: Glucose, Whole Blood 119 mg/dL (60-115)
--- NOTE | 2024-09-26 13:35 | P.PNIM_ITS ---
Subjective Subjective Date of Service: 09/26/24 Interval History: Still with difficulty swallowing. No other focal deficits Review of Systems Denies chest pain Denies shortness of breath Denies nausea vomiting diarrhea Denies fever chills Physical Exam 2 Exam: Exam: Appearing in no acute distress lung sounds are clear to auscultation heart regular rate rhythm, clear S1, S2 positive bowel sounds, abdomen is soft, nontender neuro patient is alert x3, no focal deficits Vital Signs: Vital Signs: Last Vital Signs Temp 97.4 F 09/26/24 12:00 Pulse 56 09/26/24 12:00 Resp 20 09/26/24 12:00 BP 131/71 09/26/24 12:00 Pulse Ox 95 09/26/24 12:00 O2 Del Method Room Air 09/26/24 12:00 BMI result Body Mass Index 38.0 Objective Data Active Medications Acetaminophen (Acetaminophen 325 Mg Tablet) 650 mg PO Q6H PRN PRN Reason: Pain, Mild 1-3,fever,headache Albuterol/Ipratropium (Albuterol/Iprat 2.5/0.5mg 3 Ml Ampul.Neb) 3 ml INHALE Q4H PRN PRN Reason: Shortness of Breath/Wheezing Aspirin (Aspirin 81 Mg Tab.Chew) 81 mg PO DAILY [facility] Last Admin: 09/26/24 09:16 Dose: Not Given Documented By: AMERICA Non-Admin Reason: NPO Atorvastatin Calcium (Atorvastatin Calcium 40 Mg Tablet) 40 mg PO BEDTIME [facility] Last Admin: 09/25/24 22:03 Dose: Not Given Documented By: ZOË Non-Admin Reason: npo Azathioprine (Azathioprine 50 Mg Tablet) 50 mg PO BID [facility] Last Admin: 09/26/24 09:16 Dose: Not Given Documented By: AMERICA Non-Admin Reason: NPO Benzonatate (Benzonatate 100 Mg Capsule) 100 mg PO TID PRN PRN Reason: Cough Brimonidine Tartrate (Brimonidine Tartrate 0.2% Oph 5 Ml Bottle) 1 drop EYE- BOTH BID [facility] Last Admin: 09/26/24 09:29 Dose: 1 drop Documented By: AMERICA Calcium Carbonate (Calcium Carbonate 750 Mg Tab.Chew) 750 mg PO Q4H PRN PRN Reason: Heartburn Cyanocobalamin (Cyanocobalamin (Vitamin B-12) 1,000 Mcg Tablet) 1,000 mcg PO DAILY [facility] Last Admin: 09/26/24 09:16 Dose: Not Given Documented By: AMERICA Non-Admin Reason: NPO Dextrose (Dextrose 50 % 25 Gm/50 Ml Syringe) 25 gm IVPUSH Q15M PRN; Protocol PRN Reason: per Hypoglycemia Standing Ord. Dorzolamide HCl (Dorzolamide Hcl 2 % Ophth Ashley 10 Ml Drpbtl) 1 drop EYE-BOTH TID [facility] Last Admin: 09/26/24 09:28 Dose: 1 drop Documented By: AMERICA Enoxaparin Sodium (Enoxaparin Sodium 40 Mg/0.4 Ml Syringe) 40 mg SUBCUT Q24H [facility] Last Admin: 09/25/24 22:48 Dose: 40 mg Documented By: ZOË Famotidine (Famotidine 20 Mg Tablet) 20 mg PO BID [facility] Last Admin: 09/26/24 09:17 Dose: Not Given Documented By: AMERICA Non-Admin Reason: NPO Glucose (Glucose Gel 15 Gm Gel..Gram.) 15 gm PO Q15M PRN; Protocol PRN Reason: per Hypoglycemia Standing Ord. Lactated Ringer's (Lr) 1,000 mls @ 100 mls/hr IVCONT .Q10H [facility] Last Admin: 09/26/24 09:30 Dose: 100 mls/hr Documented By: AMERICA Methylprednisolone Sodium Succinate 1,000 mg/ Sodium Chloride 66 mls @ 66 mls/hr IV DAILY [facility] Stop: 09/28/24 08:59 Last Infusion: 09/26/24 11:17 Dose: Infused Documented By: AMERICA Insulin Human Lispro (Insulin Lispro 100 Unit/Ml 3 Ml Vial) 0 unit SUBCUT QIDACHS [facility]; Protocol Last Admin: 09/26/24 13:04 Dose: Not Given Documented By: CLARA Non-Admin Reason: No Insulin Coverage Latanoprost (Latanoprost 0.005 % Ophth Ashley 2.5 Ml Drops) 1 drop EYE-BOTH BEDTIME [facility] Last Admin: 09/25/24 22:46 Dose: 1 drop Documented By: ZOË Magnesium Hydroxide (Milk Of Magnesia 30 Ml Oral.Susp) 30 ml PO DAILY PRN PRN Reason: Constipation Melatonin (Melatonin 3 Mg Tablet) 6 mg PO BEDTIME PRN PRN Reason: Insomnia Metformin HCl (Metformin Hcl Er 500 Mg Tab.Er.24h) 500 mg PO BEDTIME [facility] Last Admin: 09/25/24 22:04 Dose: Not Given Documented By: ZOË Non-Admin Reason: npo Ondansetron HCl (Ondansetron Hcl 4 Mg/2 Ml Vial) 4 mg IVPUSH Q8H PRN PRN Reason: Nausea and Vomiting Polyethylene Glycol (Polyethylene Glycol 3350 17 Gm Powd.Pack) 17 gm PO DAILY PRN PRN Reason: Constipation Pyridostigmine [place] (Pyridostigmine [place] 60 Mg Tablet) 60 mg PO BID [facility] Last Admin: 09/26/24 09:17 Dose: Not Given Documented By: AMERICA Non-Admin Reason: NPO Senna (Sennosides 8.6 Mg Tablet) 17.2 mg PO BEDTIME [facility] Last Admin: 09/25/24 22:04 Dose: Not Given Documented By: ZOË Non-Admin Reason: npo Sodium Chloride (0.9 % Sodium Chloride Flush 3 Ml Syringe) 3 ml IVFLUSH QSHIFT [facility] Last Admin: 09/26/24 09:26 Dose: 3 ml Documented By: AMERICA Valsartan (Valsartan 40 Mg Tablet) 40 mg PO DAILY [facility] Last Admin: 09/26/24 09:17 Dose: Not Given Documented By: AMERICA Non-Admin Reason: NPO Vitamin D (Cholecalciferol (Vitamin D3) 25 Mcg Tablet) 25 mcg PO DAILY [facility] Last Admin: 09/26/24 09:16 Dose: Not Given Documented By: AMERICA Non-Admin Reason: NPO Labs 09/26/24 06:08 09/26/24 06:07 Labs: Laboratory Results - last 24 hr 09/25/24 09/25/24 09/26/24 17:55 21:51 06:07 MCV MCH MCHC RDW Plt Count MPV Immature Gran % (Auto) Neut % (Auto) Lymph % (Auto) [place] % (Auto) Eos % (Auto) Baso % (Auto) Lymph # (Auto) [place] # (Auto) Eos # (Auto) Baso # (Auto) Abs Immat Gran (auto) Absolute Neuts (auto) Absolute Nucleated RBC Nucleated RBC % (auto) Anion Gap 10 L Estim Creat Clear Calc 151.5 Estimated GFR > 60 POC Glucose 136 H 138 H Fasting Glucose 117 H Calcium 8.5 Total Bilirubin 0.8 AST 27 ALT 55 H Alkaline Phosphatase 59 Total Protein 6.1 L Albumin 3.6 09/26/24 09/26/24 09/26/24 06:08 07:22 12:00 MCV 88.1 MCH 29.7 MCHC 33.7 RDW 14.3 Plt Count 190 MPV 11.3 Immature Gran % (Auto) 0.5 H Neut % (Auto) 87.8 H Lymph % (Auto) 7.0 L [place] % (Auto) 4.7 Eos % (Auto) 0.0 Baso % (Auto) 0.0 Lymph # (Auto) 0.8 L [place] # (Auto) 0.5 Eos # (Auto) 0.0 Baso # (Auto) 0.0 Abs Immat Gran (auto) 0.05 H Absolute Neuts (auto) 9.5 H Absolute Nucleated RBC 0.000 Nucleated RBC % (auto) 0.0 Anion Gap Estim Creat Clear Calc Estimated GFR POC Glucose 104 119 H Fasting Glucose Calcium Total Bilirubin AST ALT Alkaline Phosphatase Total Protein Albumin Assessment and Plan (1) Myasthenia gravis with exacerbation: Status: Acute (2) DMII (diabetes mellitus, type 2): Status: Acute Plan 69 yo male with PMH NIDDM, HTN, Obesity, hiatal hernia, GERD, MG on mestinoin, WILKERSON, GABY no longer on CPAP due to wt loss, presents to ED with left eye droop, and noted dysphagia since completing Cipro for recent UTI. Pt has list of medications that are contraindicated for pt's with MG but did not realize CIPRO was a fluoroquinolone. Pt beleives his symptoms stem from taking CIPRO for recent UTI. Pt completed treatment yesterday. Pt started having issues with left eye droop, chest pressure and dysphagia which have all improved. Pt is planning on transferring care for MG to [facility]. Myasthenia gravis with exacerbation methylprednisolone 1 g IV q.d. x3 days ordered continues with difficulty swallowing, seen by speech, continue NPO for now NIDDM acceptable control on current therapies lispro correctional scale adjust as indicated (likely rise secondary to steroids) Hypertension valsartan Lovenox Full code Quality Stroke Does the patient have a stroke diagnosis?: No Reason for No Anti-thrombotic by Day Two: N/A - Med Ordered VTE Prior VTE?: No VTE Risk Level:: Medical - moderate - high VTE Device Contraindication: N/A - Device Ordered VTE Drug Contraindication: N/A - Med Ordered
[2024-09-26 16:10] LABS: Glucose, Whole Blood 134 mg/dL (60-115)
--- NOTE | 2024-09-26 16:53 | MHC.CM.PN ---
Per MD rounds today pt not medically cleared to discharge. Solumedrol changed to Prednisone. IMAGING SERVICES DIRECTOR eval ordered. DP Home resume [facility] and [facility] if ordered. A referral has been sent to [facility]. Family will provide transport home at me.
[2024-09-26 21:23] LABS: Glucose, Whole Blood 142 mg/dL (60-115)
[2024-09-26] MEDS: Latanoprost 0.005 % Ophth Sol 2.5 ML DROPS 1 DROP EYE-BOTH (23:03)
[2024-09-27] MEDS: 0.9 % Sodium Chloride Flush 3 ML SYRINGE IVFLUSH ×3 (00:10→20:29)
[2024-09-27 03:58] VITALS: BP 120/70; PULSE 63; RESP 20; TEMP 36.2; O2SAT 94
--- NOTE | 2024-09-27 05:35 | PM.EVENT ---
Event Note Date of Service: 09/27/24 Event Note: Patient complaining of weakness in chest overnight. Maintaining normal oxygen saturation on room air. Called RT for NIF and FVC. Vitals stable NIF -35/-40 and FVC 2.6/3L. Closely monitor Time Spent With Patient Time: Total time managing care of this patient today ____ minutes.
[2024-09-27] MEDS: Lactated Ringers 1,000 ML 100 ML IVCONT (06:47)
[2024-09-27 07:01] VITALS: BP 140/77; PULSE 72; RESP 15; TEMP 36.4; O2SAT 96
[2024-09-27 07:15] LABS: Glucose, Whole Blood 122 mg/dL (60-115)
--- NOTE | 2024-09-27 08:17 | PC.NURSE ---
Assumed care of pt at 1900. At approx 2230, pt called RN to room and was c/o weakness to his lungs and trouble breathing. MD was notified of this. Pt has been NPO and has been unable to take pyridostigmine PO. MD ordered IV pyridostigmine. Atropine IV given prior to administration to mitigate risk of further bradycardia. RN melt house supervisor Brie Parker present at bedside during administration. Symptoms improved per pt, VSS.
[2024-09-27] MEDS: methylPREDNISolone Sod Succ 1,000 MG in 0.9 % Sodium Chloride 50 ML 66 MG IV (08:37)
[2024-09-27] MEDS: Dorzolamide HCl 2 % Ophth Sol 10 ML DRPBTL 1 DROP EYE-BOTH ×3 (08:42→20:28)
[2024-09-27] MEDS: Brimonidine Tartrate 0.2% Oph 5 ML BOTTLE 1 DROP EYE-BOTH ×2 (08:42→20:28)
[2024-09-27 11:02] VITALS: BP 144/77; PULSE 57; RESP 18; TEMP 36.4; O2SAT 96
[2024-09-27 11:23] LABS: Glucose, Whole Blood 113 mg/dL (60-115)
--- NOTE | 2024-09-27 13:06 | P.PNIM_ITS ---
Subjective Subjective Date of Service: 09/27/24 Interval History: Worsening difficulty swallowing. No other focal deficits Review of Systems Denies chest pain Denies shortness of breath Denies nausea vomiting diarrhea Denies fever chills Physical Exam 2 Exam: Exam: Difficulty swallowing lung sounds are clear to auscultation heart regular rate rhythm, clear S1, S2 positive bowel sounds, abdomen is soft, nontender neuro patient is alert x3, no focal deficits Vital Signs: Vital Signs: Last Vital Signs Temp 97.6 F 09/27/24 11:02 Pulse 57 09/27/24 11:02 Resp 18 09/27/24 11:02 BP 144/77 H 09/27/24 11:02 Pulse Ox 96 09/27/24 11:02 O2 Del Method Room Air 09/27/24 11:02 BMI result Body Mass Index 38.0 Objective Data Active Medications Acetaminophen (Acetaminophen 325 Mg Tablet) 650 mg PO Q6H PRN PRN Reason: Pain, Mild 1-3,fever,headache Albuterol/Ipratropium (Albuterol/Iprat 2.5/0.5mg 3 Ml Ampul.Neb) 3 ml INHALE Q4H PRN PRN Reason: Shortness of Breath/Wheezing Aspirin (Aspirin 81 Mg Tab.Chew) 81 mg PO DAILY [facility] Last Admin: 09/27/24 08:46 Dose: Not Given Documented By: JENNI Non-Admin Reason: NPO Atorvastatin Calcium (Atorvastatin Calcium 40 Mg Tablet) 40 mg PO BEDTIME [facility] On Hold: 09/26/24 17:06 Last Admin: 09/25/24 22:03 Dose: Not Given Documented By: ZOË Non-Admin Reason: npo Azathioprine (Azathioprine 50 Mg Tablet) 50 mg PO BID [facility] Last Admin: 09/27/24 09:00 Dose: Not Given Documented By: JENNI Non-Admin Reason: NPO Benzonatate (Benzonatate 100 Mg Capsule) 100 mg PO TID PRN PRN Reason: Cough Brimonidine Tartrate (Brimonidine Tartrate 0.2% Oph 5 Ml Bottle) 1 drop EYE- BOTH BID [facility] Last Admin: 09/27/24 08:42 Dose: 1 drop Documented By: JENNI Calcium Carbonate (Calcium Carbonate 750 Mg Tab.Chew) 750 mg PO Q4H PRN PRN Reason: Heartburn Cyanocobalamin (Cyanocobalamin (Vitamin B-12) 1,000 Mcg Tablet) 1,000 mcg PO DAILY [facility] Last Admin: 09/27/24 09:00 Dose: Not Given Documented By: JENNI Non-Admin Reason: NPO Dextrose (Dextrose 50 % 25 Gm/50 Ml Syringe) 25 gm IVPUSH Q15M PRN; Protocol PRN Reason: per Hypoglycemia Standing Ord. Dorzolamide HCl (Dorzolamide Hcl 2 % Ophth Ashley 10 Ml Drpbtl) 1 drop EYE-BOTH TID [facility] Last Admin: 09/27/24 08:42 Dose: 1 drop Documented By: JENNI Enoxaparin Sodium (Enoxaparin Sodium 40 Mg/0.4 Ml Syringe) 40 mg SUBCUT Q24H [facility] Last Admin: 09/26/24 23:02 Dose: 40 mg Documented By: SUNNY Famotidine (Famotidine 20 Mg Tablet) 20 mg PO BID [facility] On Hold: 09/26/24 17:06 Last Admin: 09/26/24 09:17 Dose: Not Given Documented By: AMERICA Non-Admin Reason: NPO Famotidine (Famotidine/Pf 20 Mg/2 Ml Vial) 20 mg IVPUSH DAILY [facility] Last Admin: 09/27/24 08:37 Dose: 20 mg Documented By: JENNI Glucose (Glucose Gel 15 Gm Gel..Gram.) 15 gm PO Q15M PRN; Protocol PRN Reason: per Hypoglycemia Standing Ord. Guaifenesin (Guaifenesin [place] 600 Mg Tab.Er.12h) 600 mg PO BID [facility] Last Admin: 09/27/24 09:00 Dose: Not Given Documented By: JENNI Non-Admin Reason: NPO Lactated Ringer's (Lr) 1,000 mls @ 100 mls/hr IVCONT .Q10H [facility] Last Admin: 09/27/24 06:47 Dose: 100 mls/hr Documented By: SUNNY Methylprednisolone Sodium Succinate 1,000 mg/ Sodium Chloride 66 mls @ 66 mls/hr IV DAILY [facility] Stop: 09/28/24 08:59 Last Infusion: 09/27/24 10:36 Dose: Infused Documented By: JENNI Insulin Human Lispro (Insulin Lispro 100 Unit/Ml 3 Ml Vial) 0 unit SUBCUT QIDACHS [facility]; Protocol Last Admin: 09/27/24 11:29 Dose: Not Given Documented By: JENNI Non-Admin Reason: No Insulin Coverage Latanoprost (Latanoprost 0.005 % Ophth [place] 2.5 Ml Drops) 1 drop EYE-BOTH BEDTIME [facility] Last Admin: 09/26/24 23:03 Dose: 1 drop Documented By: SUNNY Magnesium Hydroxide (Milk Of Magnesia 30 Ml Oral.Susp) 30 ml PO DAILY PRN PRN Reason: Constipation Melatonin (Melatonin 3 Mg Tablet) 6 mg PO BEDTIME PRN PRN Reason: Insomnia Metformin HCl (Metformin Hcl Er 500 Mg Tab.Er.24h) 500 mg PO BEDTIME [facility] On Hold: 09/26/24 17:06 Last Admin: 09/25/24 22:04 Dose: Not Given Documented By: ZOË Non-Admin Reason: npo Ondansetron HCl (Ondansetron Hcl 4 Mg/2 Ml Vial) 4 mg IVPUSH Q8H PRN PRN Reason: Nausea and Vomiting Polyethylene Glycol (Polyethylene Glycol 3350 17 Gm Powd.Pack) 17 gm PO DAILY PRN PRN Reason: Constipation Pyridostigmine [place] (Pyridostigmine [place] 60 Mg Tablet) 60 mg PO BID [facility] Last Admin: 09/27/24 09:00 Dose: Not Given Documented By: JENNI Non-Admin Reason: NPO Senna (Sennosides 8.6 Mg Tablet) 17.2 mg PO BEDTIME [facility] On Hold: 09/26/24 17:06 Last Admin: 09/25/24 22:04 Dose: Not Given Documented By: ZOË Non-Admin Reason: npo Sodium Chloride (0.9 % Sodium Chloride Flush 3 Ml Syringe) 3 ml IVFLUSH QSHIFT [facility] Last Admin: 09/27/24 08:38 Dose: 3 ml Documented By: JENNI Valsartan (Valsartan 40 Mg Tablet) 40 mg PO DAILY [facility] On Hold: 09/26/24 17:07 Last Admin: 09/26/24 09:17 Dose: Not Given Documented By: AMERICA Non-Admin Reason: NPO Vitamin D (Cholecalciferol (Vitamin D3) 25 Mcg Tablet) 25 mcg PO DAILY [facility] On Hold: 09/26/24 17:06 Last Admin: 09/26/24 09:16 Dose: Not Given Documented By: AMERICA Non-Admin Reason: NPO Labs 09/26/24 06:08 09/26/24 06:07 Labs: Laboratory Results - last 24 hr 09/26/24 09/26/24 09/27/24 16:06 21:20 07:07 POC Glucose 134 H 142 H 122 H 09/27/24 11:14 POC Glucose 113 Assessment and Plan (1) Myasthenia gravis with exacerbation: Status: Acute (2) DMII (diabetes mellitus, type 2): Status: Acute Plan 69 yo male with PMH NIDDM, HTN, Obesity, hiatal hernia, GERD, MG on mestinoin, WILKERSON, GABY no longer on CPAP due to wt loss, presents to ED with left eye droop, and noted dysphagia since completing Cipro for recent UTI. Pt has list of medications that are contraindicated for pt's with MG but did not realize CIPRO was a fluoroquinolone. Pt beleives his symptoms stem from taking CIPRO for recent UTI. Pt completed treatment yesterday. Pt started having issues with left eye droop, chest pressure and dysphagia which have all improved. Pt is planning on transferring care for MG to [facility]. Myasthenia gravis with exacerbation, worsening S/p methylprednisolone 1 g IV q.d. x2 days , stopped 09/27/24 continues with difficulty swallowing, seen by speech, continue NPO for now Discussed with neurology, stary IVIG 400 mg/kg for 5 days NIDDM acceptable control on current therapies lispro correctional scale adjust as indicated (likely rise secondary to steroids) Hypertension valsartan Lovenox Full code Quality Stroke Does the patient have a stroke diagnosis?: No Reason for No Anti-thrombotic by Day Two: N/A - Med Ordered VTE Prior VTE?: No VTE Risk Level:: Medical - moderate - high VTE Device Contraindication: N/A - Device Ordered VTE Drug Contraindication: N/A - Med Ordered
[2024-09-27] MEDS: Immune Globulin 10% Gammagard 20 GM/200 ML VIAL IV (15:00)
[2024-09-27 15:05] VITALS: BP 147/78; PULSE 55; RESP 16; TEMP 36.3; O2SAT 96
[2024-09-27 16:13] LABS: Glucose, Whole Blood 131 mg/dL (60-115)
--- NOTE | 2024-09-27 16:48 | P.PNNE_ITS ---
Subjective Subjective Date of Service: 09/27/24 Interval History: Still has persistent difficulty swallowing and handling his secretions. Has left-sided ptosis and some diplopia. Mild limb weakness right greater than left. No respiratory difficulty Critical Care Time (minutes): 0 Physical Exam 2 Vital Signs: Vital Signs: Last Vital Signs Temp 97.4 F 09/27/24 15:05 Pulse 55 09/27/24 15:05 Resp 16 09/27/24 15:05 BP 147/78 H 09/27/24 15:05 Pulse Ox 96 09/27/24 15:05 O2 Del Method Room Air 09/27/24 15:05 BMI result Body Mass Index 38.0 Neuro: Other: Ptosis of the left eye. Bilateral facial weakness. Right deltoid weakness greater than left. Bilateral triceps weakness. Neck flexors are intact. Objective Data Labs 09/26/24 06:08 09/26/24 06:07 Labs: Laboratory Results - last 24 hr 09/26/24 09/27/24 09/27/24 21:20 07:07 11:14 POC Glucose 142 H 122 H 113 09/27/24 16:03 POC Glucose 131 H Progress Note: A&P Assessment and plan (1) Myasthenia gravis with exacerbation: Status: Acute Assessment and Plan: Continue IVIG as ordered. Increase Mestinon to 60 mg every 4 hours if able to swallow otherwise switch to IV dose equivalent to the oral amount. Pulmonary function test with FEV1 continue azathioprine 50 mg b.i.d. Time Spent With Patient Time: Total time managing care of this patient today ____ minutes. Procedures Date of Service Date of Service: 09/27/24 Quality Stroke Does the patient have a stroke diagnosis?: No Reason for No Anti-thrombotic by Day Two: N/A - Med Ordered VTE Prior VTE?: No VTE Risk Level:: Medical - moderate - high VTE Device Contraindication: N/A - Device Ordered VTE Drug Contraindication: N/A - Med Ordered
[2024-09-27] MEDS: Immune Globulin 10% Gammagard 30 GM/300 ML VIAL IV (18:08)
[2024-09-27 19:19] VITALS: BP 162/85; PULSE 58; RESP 16; TEMP 36.5; O2SAT 95
[2024-09-27 20:21] LABS: Glucose, Whole Blood 135 mg/dL (60-115)
[2024-09-27] MEDS: Latanoprost 0.005 % Ophth Sol 2.5 ML DROPS 1 DROP EYE-BOTH (20:28)
[2024-09-27 23:22] VITALS: BP 165/91; PULSE 50; RESP 18; TEMP 36.2; O2SAT 97
[2024-09-28 03:01] VITALS: BP 179/91; PULSE 55; RESP 18; TEMP 36.4; O2SAT 96
[2024-09-28 07:04] LABS: Glucose, Whole Blood 107 mg/dL (60-115)
[2024-09-28 07:38] VITALS: BP 140/90; PULSE 59; RESP 18; TEMP 36.3; O2SAT 95
[2024-09-28] MEDS: 0.9 % Sodium Chloride Flush 3 ML SYRINGE IVFLUSH ×3 (08:32→23:43)
[2024-09-28] MEDS: Brimonidine Tartrate 0.2% Oph 5 ML BOTTLE 1 DROP EYE-BOTH ×2 (08:33→19:43)
[2024-09-28] MEDS: Dorzolamide HCl 2 % Ophth Sol 10 ML DRPBTL 1 DROP EYE-BOTH ×3 (08:33→19:43)
--- NOTE | 2024-09-28 10:37 | PC.RT ---
RT called to bedside. Pt states he needed help getting secretions deeper in his throat and he has numbness so he can't swallow. RT orally suctioned with yankauer. Moderate amounts of thick, white secretions suctioned.
[2024-09-28 11:14] LABS: Glucose, Whole Blood 100 mg/dL (60-115)
[2024-09-28 11:46] VITALS: BP 140/82; PULSE 56; RESP 18; TEMP 36.1; O2SAT 95
--- NOTE | 2024-09-28 11:54 | HO.PM.IMPN ---
Subjective Subjective Date of Service: 09/28/24 Interval History: worsening dysphagia Physical Exam Vital Signs: Vital Signs: Last Vital Signs Temp 97.0 F 09/28/24 11:46 Pulse 56 09/28/24 11:46 Resp 18 09/28/24 11:46 BP 140/82 H 09/28/24 11:46 Pulse Ox 95 09/28/24 11:46 O2 Del Method Room Air 09/28/24 11:46 BMI result Body Mass Index 38.0 Neuro: Other: Ptosis of the left eye. Bilateral facial weakness. Right deltoid weakness greater than left. Bilateral triceps weakness. Neck flexors are intact. Objective Data Active Medications Acetaminophen (Acetaminophen 325 Mg Tablet) 650 mg PO Q6H PRN PRN Reason: Pain, Mild 1-3,fever,headache Albuterol/Ipratropium (Albuterol/Iprat 2.5/0.5mg 3 Ml Ampul.Neb) 3 ml INHALE Q4H PRN PRN Reason: Shortness of Breath/Wheezing Aspirin (Aspirin 81 Mg Tab.Chew) 81 mg PO DAILY [facility] Last Admin: 09/28/24 07:28 Dose: Not Given Documented By: YNAE Non-Admin Reason: NPO Atorvastatin Calcium (Atorvastatin Calcium 40 Mg Tablet) 40 mg PO BEDTIME [facility] On Hold: 09/26/24 17:06 Last Admin: 09/25/24 22:03 Dose: Not Given Documented By: ZOË Non-Admin Reason: npo Azathioprine (Azathioprine 50 Mg Tablet) 50 mg PO BID [facility] Last Admin: 09/28/24 07:29 Dose: Not Given Documented By: YANE Non-Admin Reason: NPO Benzonatate (Benzonatate 100 Mg Capsule) 100 mg PO TID PRN PRN Reason: Cough Brimonidine Tartrate (Brimonidine Tartrate 0.2% Oph 5 Ml Bottle) 1 drop EYE-BOTH BID [facility] Last Admin: 09/28/24 08:33 Dose: 1 drop Documented By: YANE Calcium Carbonate (Calcium Carbonate 750 Mg Tab.Chew) 750 mg PO Q4H PRN PRN Reason: Heartburn Cyanocobalamin (Cyanocobalamin (Vitamin B-12) 1,000 Mcg Tablet) 1,000 mcg PO DAILY [facility] Last Admin: 09/28/24 07:30 Dose: Not Given Documented By: YANE Non-Admin Reason: NPO Dextrose (Dextrose 50 % 25 Gm/50 Ml Syringe) 25 gm IVPUSH Q15M PRN; Protocol PRN Reason: per Hypoglycemia Standing Ord. Dorzolamide HCl (Dorzolamide Hcl 2 % Ophth Ashley 10 Ml Drpbtl) 1 drop EYE-BOTH TID [facility] Last Admin: 09/28/24 08:33 Dose: 1 drop Documented By: YANE Enoxaparin Sodium (Enoxaparin Sodium 40 Mg/0.4 Ml Syringe) 40 mg SUBCUT Q24H [facility] Last Admin: 09/27/24 22:31 Dose: 40 mg Documented By: BOB Famotidine (Famotidine 20 Mg Tablet) 20 mg PO BID [facility] On Hold: 09/26/24 17:06 Last Admin: 09/26/24 09:17 Dose: Not Given Documented By: AMERICA Non-Admin Reason: NPO Famotidine (Famotidine/Pf 20 Mg/2 Ml Vial) 20 mg IVPUSH DAILY [facility] Last Admin: 09/28/24 08:32 Dose: 20 mg Documented By: YANE Glucose (Glucose Gel 15 Gm Gel..Gram.) 15 gm PO Q15M PRN; Protocol PRN Reason: per Hypoglycemia Standing Ord. Guaifenesin (Guaifenesin La 600 Mg Tab.Er.12h) 600 mg PO BID [facility] Last Admin: 09/28/24 07:30 Dose: Not Given Documented By: YANE Non-Admin Reason: NPO Immune Globulin (Gammagard 10%) 20 gm in 200 mls @ 65 mls/hr IV DAILY@1500 [facility] Stop: 10/01/24 18:05 Last Infusion: 09/27/24 18:13 Dose: Infused Documented By: FOSTEKR Immune Globulin (Gammagard 10%) 30 gm in 300 mls @ 65 mls/hr IV DAILY@1806 [facility] Stop: 10/01/24 22:43 Last Infusion: 09/27/24 23:05 Dose: Infused Documented By: BOB Insulin Human Lispro (Insulin Lispro 100 Unit/Ml 3 Ml Vial) 0 unit SUBCUT QIDACHS [facility]; Protocol Last Admin: 09/28/24 11:40 Dose: Not Given Documented By: YANE Non-Admin Reason: No Insulin Coverage Latanoprost (Latanoprost 0.005 % Ophth Ashley 2.5 Ml Drops) 1 drop EYE-BOTH BEDTIME [facility] Last Admin: 09/27/24 20:28 Dose: 1 drop Documented By: BOB Magnesium Hydroxide (Milk Of Magnesia 30 Ml Oral.Susp) 30 ml PO DAILY PRN PRN Reason: Constipation Melatonin (Melatonin 3 Mg Tablet) 6 mg PO BEDTIME PRN PRN Reason: Insomnia Metformin HCl (Metformin Hcl Er 500 Mg Tab.Er.24h) 500 mg PO BEDTIME [facility] On Hold: 09/26/24 17:06 Last Admin: 09/25/24 22:04 Dose: Not Given Documented By: ZOË Non-Admin Reason: npo Ondansetron HCl (Ondansetron Hcl 4 Mg/2 Ml Vial) 4 mg IVPUSH Q8H PRN PRN Reason: Nausea and Vomiting Polyethylene Glycol (Polyethylene Glycol 3350 17 Gm Powd.Pack) 17 gm PO DAILY PRN PRN Reason: Constipation Pyridostigmine [place] (Pyridostigmine [place] 60 Mg Tablet) 60 mg PO BID [facility] Last Admin: 09/28/24 07:30 Dose: Not Given Documented By: YANE Non-Admin Reason: NPO Pyridostigmine [place] (Pyridostigmine [place] 10 Mg/2 Ml Ampul) 2 mg IVPUSH Q6H [facility] Senna (Sennosides 8.6 Mg Tablet) 17.2 mg PO BEDTIME [facility] On Hold: 09/26/24 17:06 Last Admin: 09/25/24 22:04 Dose: Not Given Documented By: ZOË Non-Admin Reason: npo Sodium Chloride (0.9 % Sodium Chloride Flush 3 Ml Syringe) 3 ml IVFLUSH QSHIFT [facility] Last Admin: 09/28/24 08:32 Dose: 3 ml Documented By: YANE Valsartan (Valsartan 40 Mg Tablet) 40 mg PO DAILY [facility] On Hold: 09/26/24 17:07 Last Admin: 09/26/24 09:17 Dose: Not Given Documented By: AMERICA Non-Admin Reason: NPO Vitamin D (Cholecalciferol (Vitamin D3) 25 Mcg Tablet) 25 mcg PO DAILY [facility] On Hold: 09/26/24 17:06 Last Admin: 09/26/24 09:16 Dose: Not Given Documented By: AMERICA Non-Admin Reason: NPO Labs 09/26/24 06:08 09/26/24 06:07 Labs: Laboratory Results - last 24 hr 09/27/24 09/27/24 09/28/24 16:03 20:13 07:00 POC Glucose 131 H 135 H 107 09/28/24 11:11 POC Glucose 100 Assessment and Plan (1) Myasthenia gravis: Status: Acute Plan 69M PMH myasthenia gravis, obesity, hypertension, diabetes, Moore, GABY no longer on CPAP due to weight loss presented with worsening myasthenia symptoms Myasthenia gravis with acute exacerbation Did not respond to steroids, discontinued Continue IVIG Unable to tolerate p.o., we will change pyridostigmine to IV [place] [facility] [place] due to full capacity Monitor FVC, and nif Diabetes Insulin Hypertension Monitor, not taking p.o. DVT prophylaxis Lovenox Full Code reason for continued hospitalization:worsening mg Quality Stroke Does the patient have a stroke diagnosis?: No Reason for No Anti-thrombotic by Day Two: N/A - Med Ordered VTE Prior VTE?: No VTE Risk Level:: Medical - moderate - high VTE Device Contraindication: N/A - Device Ordered VTE Drug Contraindication: N/A - Med Ordered
--- NOTE | 2024-09-28 13:21 | MHC.CM.PN ---
DX Myasthenia Gravis. Per MD rounds patient may transfer to [facility] [place]. He continues to require IVIG. DP [facility] [place] via [facility] @ transfer VS STR VS Home.
--- NOTE | 2024-09-28 13:56 | MHC.SLORD ---
Speech Language Pathology Order Status: Pt using [place] and oral swabs to manage secretions d/t limited ability to swallow at this time. GB medications administered through IV, pt notes some improvement in his voicing. Pt is not ready to attempt PO trials today, pt to inform RN when he feels ready, SYSTEMS ARCHITECT clinical swallow to be conducted again at that time. MD notified.
[2024-09-28] MEDS: Immune Globulin 10% Gammagard 20 GM/200 ML VIAL IV (15:33)
[2024-09-28 15:47] VITALS: BP 140/96; PULSE 51; RESP 18; TEMP 36.1
[2024-09-28 16:18] LABS: Glucose, Whole Blood 84 mg/dL (60-115)
[2024-09-28] MEDS: Immune Globulin 10% Gammagard 30 GM/300 ML VIAL IV (19:23)
[2024-09-28 19:40] VITALS: BP 160/84; PULSE 59; RESP 18; TEMP 36.2; O2SAT 96
[2024-09-28] MEDS: Latanoprost 0.005 % Ophth Sol 2.5 ML DROPS 1 DROP EYE-BOTH (19:43)
[2024-09-28 20:12] LABS: Glucose, Whole Blood 84 mg/dL (60-115)
[2024-09-28 23:27] VITALS: BP 136/75; PULSE 60; RESP 18; TEMP 36.2; O2SAT 96
[2024-09-29 03:31] VITALS: BP 127/76; PULSE 62; RESP 18; TEMP 36.2; O2SAT 96
--- NOTE | 2024-09-29 06:14 | PM.EVENT ---
Event Note Date of Service: 09/29/24 Event Note: 5:33 am - contacted by nursing to notify patient is complaining of of shallow breathing. His O2 sats are normal so far. According to RN, patient feels that the pyridostigmine is not having the same effect this time. NIF ordered. Time Spent With Patient Time: Total time managing care of this patient today ____ minutes.
[2024-09-29 06:53] LABS: Hematocrit 41.8 % (42.0-52.0); Hemoglobin 14.2 g/dl (14.0-18.0); Mean Corpuscular HGB Conc 34.0 g/dl (31.0-36.0); Mean Corpuscular Hemoglobin 30.5 pg (27.0-33.0); Mean Corpuscular Volume 89.9 fL (80.0-98.0); NRBC Abs Auto 0.000 X10*3/uL (0.0-0.012); NRBC Pct Auto 0.0 /100WBC (0.0-0.2); Platelet Count 144 X10*3/uL (160-400); Red Blood Count 4.65 X10*6/uL (4.60-5.80); White Blood Count 7.1 X10*3/uL (4.8-10.8)
[2024-09-29 06:56] LABS: Venous Blood Gas Refer to POC result
[2024-09-29 06:57] LABS: VBG HCO3 32 mmol/L (22-26); VBG O2 % Saturation 90.0 %
[2024-09-29 07:00] VITALS: BP 172/56; PULSE 62; RESP 18; TEMP 36; O2SAT 94
[2024-09-29 07:03] LABS: Glucose, Whole Blood 82 mg/dL (60-115)
[2024-09-29 07:05] LABS: Anion Gap 10 (12-20); Blood Urea Nitrogen 29 mg/dL (9-16); Calcium 8.2 mg/dL (8.4-10.2); Carbon Dioxide 26 mmol/L (22-29); Chloride 111 mmol/L (96-108); Creatinine Clr Calc Pharmacy 139.1; Estimated Glomerular Filt Rate > 60; Magnesium 2.5 mg/dL (1.6-2.6); Potassium 4.0 mmol/L (3.3-5.1); Sodium 143 mmol/L (135-145)
[2024-09-29] MEDS: Brimonidine Tartrate 0.2% Oph 5 ML BOTTLE 1 DROP EYE-BOTH ×2 (09:57→20:04)
[2024-09-29] MEDS: 0.9 % Sodium Chloride Flush 3 ML SYRINGE IVFLUSH ×2 (09:57→14:06)
[2024-09-29] MEDS: Dorzolamide HCl 2 % Ophth Sol 10 ML DRPBTL 1 DROP EYE-BOTH ×3 (09:58→20:04)
--- NOTE | 2024-09-29 10:44 | P.PNIM_ITS ---
Subjective Subjective Date of Service: 09/29/24 Interval History: Still with significant dysphagia and weakness Physical Exam 2 Vital Signs: Vital Signs: Last Vital Signs Temp 96.8 F 09/29/24 07:00 Pulse 62 09/29/24 07:00 Resp 18 09/29/24 07:00 BP 172/56 H 09/29/24 07:00 Pulse Ox 94 09/29/24 07:00 O2 Del Method Room Air 09/29/24 07:00 O2 Flow Rate 96 09/28/24 15:47 BMI result Body Mass Index 38.0 Neuro: Other: Ptosis of the left eye. Bilateral facial weakness. Right deltoid weakness greater than left. Bilateral triceps weakness. Neck flexors are intact. Objective Data Active Medications Acetaminophen (Acetaminophen 325 Mg Tablet) 650 mg PO Q6H PRN PRN Reason: Pain, Mild 1-3,fever,headache Albuterol/Ipratropium (Albuterol/Iprat 2.5/0.5mg 3 Ml Ampul.Neb) 3 ml INHALE Q4H PRN PRN Reason: Shortness of Breath/Wheezing Aspirin (Aspirin 81 Mg Tab.Chew) 81 mg PO DAILY [facility] Last Admin: 09/29/24 10:11 Dose: Not Given Documented By: YANE Non-Admin Reason: NPO Atorvastatin Calcium (Atorvastatin Calcium 40 Mg Tablet) 40 mg PO BEDTIME [facility] On Hold: 09/26/24 17:06 Last Admin: 09/25/24 22:03 Dose: Not Given Documented By: ZOË Non-Admin Reason: npo Atropine Sulfate (Atropine Sulfate 1 Mg/10 Ml Syringe) 1 mg IVPUSH ONCE PRN PRN Reason: severe rebekah (just place at bedside) Azathioprine (Azathioprine 50 Mg Tablet) 50 mg PO BID [facility] Last Admin: 09/29/24 10:11 Dose: Not Given Documented By: YANE Non-Admin Reason: NPO Benzonatate (Benzonatate 100 Mg Capsule) 100 mg PO TID PRN PRN Reason: Cough Brimonidine Tartrate (Brimonidine Tartrate 0.2% Oph 5 Ml Bottle) 1 drop EYE- BOTH BID [facility] Last Admin: 09/29/24 09:57 Dose: 1 drop Documented By: YANE Calcium Carbonate (Calcium Carbonate 750 Mg Tab.Chew) 750 mg PO Q4H PRN PRN Reason: Heartburn Cyanocobalamin (Cyanocobalamin (Vitamin B-12) 1,000 Mcg Tablet) 1,000 mcg PO DAILY [facility] Last Admin: 09/29/24 10:11 Dose: Not Given Documented By: YANE Non-Admin Reason: NPO Dextrose (Dextrose 50 % 25 Gm/50 Ml Syringe) 25 gm IVPUSH Q15M PRN; Protocol PRN Reason: per Hypoglycemia Standing Ord. Dorzolamide HCl (Dorzolamide Hcl 2 % Ophth Ashley 10 Ml Drpbtl) 1 drop EYE-BOTH TID [facility] Last Admin: 09/29/24 09:58 Dose: 1 drop Documented By: YANE Enoxaparin Sodium (Enoxaparin Sodium 40 Mg/0.4 Ml Syringe) 40 mg SUBCUT Q24H [facility] Last Admin: 09/28/24 23:43 Dose: 40 mg Documented By: AMERICA Famotidine (Famotidine 20 Mg Tablet) 20 mg PO BID [facility] On Hold: 09/26/24 17:06 Last Admin: 09/26/24 09:17 Dose: Not Given Documented By: AMERICA Non-Admin Reason: NPO Famotidine (Famotidine/Pf 20 Mg/2 Ml Vial) 20 mg IVPUSH DAILY [facility] Last Admin: 09/29/24 09:57 Dose: 20 mg Documented By: YANE Glucose (Glucose Gel 15 Gm Gel..Gram.) 15 gm PO Q15M PRN; Protocol PRN Reason: per Hypoglycemia Standing Ord. Guaifenesin (Guaifenesin La 600 Mg Tab.Er.12h) 600 mg PO BID [facility] Last Admin: 09/29/24 10:12 Dose: Not Given Documented By: YANE Non-Admin Reason: NPO Immune Globulin (Gammagard 10%) 20 gm in 200 mls @ 65 mls/hr IV DAILY@1500 [facility] Stop: 10/01/24 18:05 Last Infusion: 09/28/24 22:22 Dose: Infused Documented By: AMERICA Immune Globulin (Gammagard 10%) 30 gm in 300 mls @ 65 mls/hr IV DAILY@1806 [facility] Stop: 10/01/24 22:43 Last Infusion: 09/29/24 00:00 Dose: Infused Documented By: AMERICA Insulin Human Lispro (Insulin Lispro 100 Unit/Ml 3 Ml Vial) 0 unit SUBCUT QIDACHS [facility]; Protocol Last Admin: 09/29/24 07:23 Dose: Not Given Documented By: JENNI Non-Admin Reason: No Insulin Coverage Latanoprost (Latanoprost 0.005 % Ophth Ashley 2.5 Ml Drops) 1 drop EYE-BOTH BEDTIME [facility] Last Admin: 09/28/24 19:43 Dose: 1 drop Documented By: AMERICA Magnesium Hydroxide (Milk Of Magnesia 30 Ml Oral.Susp) 30 ml PO DAILY PRN PRN Reason: Constipation Melatonin (Melatonin 3 Mg Tablet) 6 mg PO BEDTIME PRN PRN Reason: Insomnia Metformin HCl (Metformin Hcl Er 500 Mg Tab.Er.24h) 500 mg PO BEDTIME [facility] On Hold: 09/26/24 17:06 Last Admin: 09/25/24 22:04 Dose: Not Given Documented By: ZOË Non-Admin Reason: npo Ondansetron HCl (Ondansetron Hcl 4 Mg/2 Ml Vial) 4 mg IVPUSH Q8H PRN PRN Reason: Nausea and Vomiting Polyethylene Glycol (Polyethylene Glycol 3350 17 Gm Powd.Pack) 17 gm PO DAILY PRN PRN Reason: Constipation Pyridostigmine [place] (Pyridostigmine [place] 60 Mg Tablet) 60 mg PO BID [facility] Last Admin: 09/29/24 10:12 Dose: Not Given Documented By: YANE Non-Admin Reason: NPO Pyridostigmine [place] (Pyridostigmine [place] 10 Mg/2 Ml Ampul) 2 mg IVPUSH Q6H [facility] Last Admin: 09/29/24 05:05 Dose: 2 mg Documented By: AMERICA Senna (Sennosides 8.6 Mg Tablet) 17.2 mg PO BEDTIME [facility] On Hold: 09/26/24 17:06 Last Admin: 09/25/24 22:04 Dose: Not Given Documented By: ZOË Non-Admin Reason: npo Sodium Chloride (0.9 % Sodium Chloride Flush 3 Ml Syringe) 3 ml IVFLUSH QSHIFT [facility] Last Admin: 09/29/24 09:57 Dose: 3 ml Documented By: YANE Valsartan (Valsartan 40 Mg Tablet) 40 mg PO DAILY [facility] On Hold: 09/26/24 17:07 Last Admin: 09/26/24 09:17 Dose: Not Given Documented By: AMERICA Non-Admin Reason: NPO Vitamin D (Cholecalciferol (Vitamin D3) 25 Mcg Tablet) 25 mcg PO DAILY [facility] On Hold: 09/26/24 17:06 Last Admin: 09/26/24 09:16 Dose: Not Given Documented By: AMERICA Non-Admin Reason: NPO Labs 09/29/24 06:46 09/29/24 06:46 Labs: Laboratory Results - last 24 hr 09/28/24 09/28/24 09/28/24 11:11 16:14 20:09 MCV MCH MCHC RDW Plt Count MPV Absolute Nucleated RBC Nucleated RBC % (auto) VBG pH VBG pCO2 VBG pO2 VBG HCO3 VBG O2 Saturation VBG Base Excess Anion Gap Estim Creat Clear Calc Estimated GFR POC Glucose 100 84 84 Random Glucose Calcium Magnesium 09/29/24 09/29/24 09/29/24 06:46 06:51 06:58 MCV 89.9 MCH 30.5 MCHC 34.0 RDW 14.7 Plt Count 144 L MPV 10.9 Absolute Nucleated RBC 0.000 Nucleated RBC % (auto) 0.0 VBG pH 7.44 H VBG pCO2 46 VBG pO2 68 VBG HCO3 32 H VBG O2 Saturation 90.0 VBG Base Excess 7.2 Anion Gap 10 L Estim Creat Clear Calc 139.1 Estimated GFR > 60 POC Glucose 82 Random Glucose 83 Calcium 8.2 L Magnesium 2.5 Assessment and Plan (1) Myasthenia gravis: Status: Acute Plan 69M PMH myasthenia gravis, obesity, hypertension, diabetes, Moore, GABY no longer on CPAP due to weight loss presented with worsening myasthenia symptoms Myasthenia gravis with acute exacerbation Did not respond to steroids, discontinued Continue IVIG day 3 Unable to tolerate p.o.,changed pyridostigmine to IV [place] [facility] [place] due to full capacity, will attempt transfer to [place] Monitor FVC, and nif Diabetes Insulin Hypertension Monitor, not taking p.o. DVT prophylaxis Lovenox Full Code reason for continued hospitalization:worsening mg Quality Stroke Does the patient have a stroke diagnosis?: No Reason for No Anti-thrombotic by Day Two: N/A - Med Ordered VTE Prior VTE?: No VTE Risk Level:: Medical - moderate - high VTE Device Contraindication: N/A - Device Ordered VTE Drug Contraindication: N/A - Med Ordered
[2024-09-29 11:01] VITALS: BP 171/95; PULSE 65; RESP 18; TEMP 36.4; O2SAT 96
[2024-09-29 11:10] LABS: Glucose, Whole Blood 83 mg/dL (60-115)
--- NOTE | 2024-09-29 14:54 | MHC.SL.SWA ---
Speech Pathologist Impression: Severe Oropharyngeal Dysphagia, Risk of Aspiration Risk of Aspiration Due to: Neuro (MG flare) Dysphasia Diet Status:No Change Liquid Consistency and Strategies for Safe Swallow: Liquid Intake Recommendation: NPO Solid Food Consistency: Dietary Recommendations: NPO Additional Modifications to Solid Foods: Patient w/ significant difficulty swallowing and unable to manage secretions, secondary to MG flare. Patient has difficulty producing volitional swallow, note pumping of larynx, but not able to complete elevation, then coughing on secretions. RD alerted, as patient continues NPO status x day 4. Per EMR, patient receiving GB meds via IV. Oral Medication Intake: NPO Please contact the pharmacy regarding appropriate crushable or liquid drug formulations that are available whenever modified delivery is recommended. Supervision While Eating and Drinking for Safe Swallow: PO with FINANCE ASSOCIATE Swallowing Recommended Treatments: Compens. Strategy Educat. Recommendation for Speech: Inpatient Speech Therapy Electrical Installation Inspector Clinican/Clinical Fellow: No Supervisory Statement: I have reviewed and agree with the student/clinical fellow's documentation: N/A Speech Language Pathologist: Laura Lane M.A., [facility]
[2024-09-29 15:00] VITALS: BP 178/89; PULSE 63; RESP 18; TEMP 36; O2SAT 95
[2024-09-29 16:11] LABS: Glucose, Whole Blood 78 mg/dL (60-115)
[2024-09-29] MEDS: Immune Globulin 10% Gammagard 20 GM/200 ML VIAL IV (16:13)
[2024-09-29] MEDS: Immune Globulin 10% Gammagard 30 GM/300 ML VIAL IV (19:20)
[2024-09-29 20:00] VITALS: BP 152/84; PULSE 62; RESP 18; TEMP 36.2; O2SAT 97
[2024-09-29] MEDS: Latanoprost 0.005 % Ophth Sol 2.5 ML DROPS 1 DROP EYE-BOTH (20:04)
[2024-09-29 21:01] LABS: Glucose, Whole Blood 84 mg/dL (60-115)
[2024-09-30] VITALS (7 sets, daily range): BP systolic 95–167; BP diastolic 51–92; PULSE 56–70; RESP 16–20; TEMP 36.1–36.7; O2SAT 96–98; BMI 38.0
[2024-09-30 00:45] LABS: Glucose, Whole Blood 83 mg/dL (60-115)
[2024-09-30 07:40] LABS: Albumin Level 3.2 g/dL (3.5-5.0); Anion Gap 10 (12-20); Blood Urea Nitrogen 25 mg/dL (9-16); Calcium 8.1 mg/dL (8.4-10.2); Carbon Dioxide 25 mmol/L (22-29); Chloride 108 mmol/L (96-108); Creatinine Clr Calc Pharmacy 156.2; Estimated Glomerular Filt Rate > 60; Magnesium 2.3 mg/dL (1.6-2.6); Potassium 4.5 mmol/L (3.3-5.1); Sodium 138 mmol/L (135-145)
[2024-09-30 08:16] LABS: Glucose, Whole Blood 91 mg/dL (60-115)
--- NOTE | 2024-09-30 08:40 | MHC.CM.PN ---
DX Myasthenia Gravis: Patient is not medically cleared to discharge today. [place] [facility] [place]. DP Transfer [place] [facility] or [place] when a bed is available. Patient will transfer via [facility].
[2024-09-30] MEDS: Dorzolamide HCl 2 % Ophth Sol 10 ML DRPBTL 1 DROP EYE-BOTH ×3 (09:16→21:34)
[2024-09-30] MEDS: Brimonidine Tartrate 0.2% Oph 5 ML BOTTLE 1 DROP EYE-BOTH ×2 (09:16→21:34)
[2024-09-30] MEDS: 0.9 % Sodium Chloride Flush 3 ML SYRINGE IVFLUSH ×3 (09:16→21:34)
--- NOTE | 2024-09-30 09:49 | P.PNIM_ITS ---
Subjective Subjective Date of Service: 09/30/24 Interval History: notes improvement Physical Exam 2 Vital Signs: Vital Signs: Last Vital Signs Temp 97.3 F 09/30/24 07:44 Pulse 70 09/30/24 07:44 Resp 17 09/30/24 07:44 BP 167/92 H 09/30/24 07:44 Pulse Ox 96 09/30/24 07:44 O2 Del Method Room Air 09/30/24 07:44 O2 Flow Rate 96 09/28/24 15:47 BMI result Body Mass Index 38.0 Neuro: Other: Ptosis of the left eye. Bilateral facial weakness. Right deltoid weakness greater than left. Bilateral triceps weakness. Neck flexors are intact. Objective Data Active Medications Acetaminophen (Acetaminophen 325 Mg Tablet) 650 mg PO Q6H PRN PRN Reason: Pain, Mild 1-3,fever,headache Albuterol/Ipratropium (Albuterol/Iprat 2.5/0.5mg 3 Ml Ampul.Neb) 3 ml INHALE Q4H PRN PRN Reason: Shortness of Breath/Wheezing Aspirin (Aspirin 81 Mg Tab.Chew) 81 mg PO DAILY [facility] Last Admin: 09/30/24 08:40 Dose: Not Given Documented By: TRINI Non-Admin Reason: npo Atorvastatin Calcium (Atorvastatin Calcium 40 Mg Tablet) 40 mg PO BEDTIME [facility] On Hold: 09/26/24 17:06 Last Admin: 09/25/24 22:03 Dose: Not Given Documented By: ZOË Non-Admin Reason: npo Atropine Sulfate (Atropine Sulfate 1 Mg/10 Ml Syringe) 1 mg IVPUSH ONCE PRN PRN Reason: severe rebekah (just place at bedside) Azathioprine (Azathioprine 50 Mg Tablet) 50 mg PO BID [facility] Last Admin: 09/30/24 08:40 Dose: Not Given Documented By: TRINI Non-Admin Reason: npo Benzonatate (Benzonatate 100 Mg Capsule) 100 mg PO TID PRN PRN Reason: Cough Brimonidine Tartrate (Brimonidine Tartrate 0.2% Oph 5 Ml Bottle) 1 drop EYE- BOTH BID [facility] Last Admin: 09/30/24 09:16 Dose: 1 drop Documented By: TRINI Calcium Carbonate (Calcium Carbonate 750 Mg Tab.Chew) 750 mg PO Q4H PRN PRN Reason: Heartburn Cyanocobalamin (Cyanocobalamin (Vitamin B-12) 1,000 Mcg Tablet) 1,000 mcg PO DAILY [facility] Last Admin: 09/30/24 08:40 Dose: Not Given Documented By: TRINI Non-Admin Reason: npo Dextrose (Dextrose 50 % 25 Gm/50 Ml Syringe) 25 gm IVPUSH Q15M PRN; Protocol PRN Reason: per Hypoglycemia Standing Ord. Dorzolamide HCl (Dorzolamide Hcl 2 % Ophth Ashley 10 Ml Drpbtl) 1 drop EYE-BOTH TID [facility] Last Admin: 09/30/24 09:16 Dose: 1 drop Documented By: TRINI Enoxaparin Sodium (Enoxaparin Sodium 40 Mg/0.4 Ml Syringe) 40 mg SUBCUT Q24H [facility] Last Admin: 09/29/24 22:45 Dose: 40 mg Documented By: SAHRA Famotidine (Famotidine 20 Mg Tablet) 20 mg PO BID [facility] On Hold: 09/26/24 17:06 Last Admin: 09/26/24 09:17 Dose: Not Given Documented By: AMERICA Non-Admin Reason: NPO Famotidine (Famotidine/Pf 20 Mg/2 Ml Vial) 20 mg IVPUSH DAILY [facility] Last Admin: 09/30/24 09:16 Dose: 20 mg Documented By: TRINI Glucose (Glucose Gel 15 Gm Gel..Gram.) 15 gm PO Q15M PRN; Protocol PRN Reason: per Hypoglycemia Standing Ord. Guaifenesin (Guaifenesin La 600 Mg Tab.Er.12h) 600 mg PO BID [facility] Last Admin: 09/30/24 08:40 Dose: Not Given Documented By: TRINI Non-Admin Reason: npo Immune Globulin (Gammagard 10%) 20 gm in 200 mls @ 65 mls/hr IV DAILY@1500 [facility] Stop: 10/01/24 18:05 Last Infusion: 09/29/24 19:18 Dose: Infused Documented By: SAHRA Immune Globulin (Gammagard 10%) 30 gm in 300 mls @ 65 mls/hr IV DAILY@1806 [facility] Stop: 10/01/24 22:43 Last Infusion: 09/29/24 23:57 Dose: Infused Documented By: SAHRA Insulin Human Lispro (Insulin Lispro 100 Unit/Ml 3 Ml Vial) 0 unit SUBCUT QIDACHS [facility]; Protocol Last Admin: 09/30/24 07:48 Dose: Not Given Documented By: TRINI Non-Admin Reason: No Insulin Coverage Latanoprost (Latanoprost 0.005 % Ophth Ashley 2.5 Ml Drops) 1 drop EYE-BOTH BEDTIME [facility] Last Admin: 09/29/24 20:04 Dose: 1 drop Documented By: SAHRA Magnesium Hydroxide (Milk Of Magnesia 30 Ml Oral.Susp) 30 ml PO DAILY PRN PRN Reason: Constipation Melatonin (Melatonin 3 Mg Tablet) 6 mg PO BEDTIME PRN PRN Reason: Insomnia Metformin HCl (Metformin Hcl Er 500 Mg Tab.Er.24h) 500 mg PO BEDTIME [facility] On Hold: 09/26/24 17:06 Last Admin: 09/25/24 22:04 Dose: Not Given Documented By: ZOË Non-Admin Reason: npo Methylprednisolone Sodium Succinate (Methylprednisolone Sod Succ 40 Mg/Ml Vial) 20 mg IVPUSH Q12H [facility] Last Admin: 09/30/24 00:31 Dose: 20 mg Documented By: SAHRA Ondansetron HCl (Ondansetron Hcl 4 Mg/2 Ml Vial) 4 mg IVPUSH Q8H PRN PRN Reason: Nausea and Vomiting Pharmacy Consult (Consult Rx Parenteral Nutrition Ordering) 1 each MISCELLANE DAILY PRN PRN Reason: Consult order Polyethylene Glycol (Polyethylene Glycol 3350 17 Gm Powd.Pack) 17 gm PO DAILY PRN PRN Reason: Constipation Pyridostigmine [place] (Pyridostigmine [place] 60 Mg Tablet) 60 mg PO BID [facility] Last Admin: 09/30/24 08:40 Dose: Not Given Documented By: TRINI Non-Admin Reason: npo Pyridostigmine [place] (Pyridostigmine [place] 10 Mg/2 Ml Ampul) 2 mg IVPUSH Q6H [facility] Last Admin: 09/30/24 06:03 Dose: 2 mg Documented By: SAHRA Senna (Sennosides 8.6 Mg Tablet) 17.2 mg PO BEDTIME [facility] On Hold: 09/26/24 17:06 Last Admin: 09/25/24 22:04 Dose: Not Given Documented By: ZOË Non-Admin Reason: npo Sodium Chloride (0.9 % Sodium Chloride Flush 3 Ml Syringe) 3 ml IVFLUSH QSHIFT [facility] Last Admin: 09/30/24 09:16 Dose: 3 ml Documented By: TRINI Valsartan (Valsartan 40 Mg Tablet) 40 mg PO DAILY [facility] On Hold: 09/26/24 17:07 Last Admin: 09/26/24 09:17 Dose: Not Given Documented By: AMERICA Non-Admin Reason: NPO Vitamin D (Cholecalciferol (Vitamin D3) 25 Mcg Tablet) 25 mcg PO DAILY [facility] On Hold: 09/26/24 17:06 Last Admin: 09/26/24 09:16 Dose: Not Given Documented By: AMERICA Non-Admin Reason: NPO Labs 09/29/24 06:46 09/30/24 07:11 Labs: Laboratory Results - last 24 hr 09/29/24 09/29/24 09/29/24 11:00 16:03 20:57 Hold Purple Top Anion Gap Estim Creat Clear Calc Estimated GFR POC Glucose 83 78 84 Random Glucose Calcium Phosphorus Magnesium Albumin 09/30/24 09/30/24 09/30/24 00:38 07:11 08:12 Hold Purple Top SEE NOTE Anion Gap 10 L Estim Creat Clear Calc 156.2 Estimated GFR > 60 POC Glucose 83 91 Random Glucose 91 Calcium 8.1 L Phosphorus 2.8 Magnesium 2.3 Albumin 3.2 L Assessment and Plan (1) Myasthenia gravis: Status: Acute Plan 69M PMH myasthenia gravis, obesity, hypertension, diabetes, Moore, GABY no longer on CPAP due to weight loss presented with worsening myasthenia symptoms Myasthenia gravis with acute exacerbation solumedrol 20 q12h Continue IVIG day 4 Unable to tolerate p.o.,changed pyridostigmine to IV Monitor FVC, and nif imprvoing slowly ppn while npo, brushing operator following Diabetes Insulin Hypertension Monitor, not taking p.o. DVT prophylaxis Lovenox Full Code reason for continued hospitalization:ivig Quality Stroke Does the patient have a stroke diagnosis?: No Reason for No Anti-thrombotic by Day Two: N/A - Med Ordered VTE Prior VTE?: No VTE Risk Level:: Medical - moderate - high VTE Device Contraindication: N/A - Device Ordered VTE Drug Contraindication: N/A - Med Ordered
--- NOTE | 2024-09-30 10:39 | MHC.CLN ---
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
--- NOTE | 2024-09-30 11:05 | MHC.SL.SWA ---
Speech Pathologist Impression: Risk of Aspiration, Oropharyngeal Dysphagia Risk of Aspiration Due to: Underlying MG Dysphasia Diet Status: Allow ice chips Liquid Consistency and Strategies for Safe Swallow: Liquid Intake Recommendation: NPO Liquid Intake Strategies: ICE CHIPS OK Solid Food Consistency: Dietary Recommendations: NPO Additional Modifications to Solid Foods: Note overall improvement. Patient's voice is stronger with increased volume and he is able to communicate again by speaking. Patient is also managing his own secretions by swallowing, no longer uses suction and does not feel the need to spit out saliva. Patient was seen for trials of ice chips and water. He tolerated small amounts with partial laryngeal elevation, mildly delayed swallow trigger, and no overt s/s of aspiration. As trials progressed and patient began drinking from a cup, he stated that it was more effortful for him to swallow, he was tiring, and felt tickling in his throat. Patient with multiple swallow attempts and throat clearing at this point, indicating that his swallow quickly fatigued. Patient continues as NPO, per RD, was started on PPN. Patient to have ice chips as requested. PUBLIC WELFARE DIRECTOR advised patient to clean mouth first, ensure upright position, discontinue if he experiences any coughing. MD advised PUBLIC WELFARE DIRECTOR is available for call-in over the weekend should a repeat evaluation be indicated/ if patient were to improve. Oral Medication Intake: NPO Please contact the pharmacy regarding appropriate crushable or liquid drug formulations that are available whenever modified delivery is recommended. Supervision While Eating and Drinking for Safe Swallow: PO with PUBLIC WELFARE DIRECTOR Swallowing Recommended Treatments: Compens. Strategy Educat. Recommendation for Speech: Inpatient Speech Therapy Frequency/Duration: Daily M-F Date Range for Service Req: Timeline to reassess: Pencil Maker Clinican/Clinical Fellow: No Supervisory Statement: I have reviewed and agree with the student/clinical fellow's documentation: N/A Speech Language Pathologist: Laura Lane M.A., [facility]-PUBLIC WELFARE DIRECTOR
[2024-09-30 11:11] LABS: Glucose, Whole Blood 88 mg/dL (60-115)
[2024-09-30] MEDS: Immune Globulin 10% Gammagard 20 GM/200 ML VIAL IV (15:34)
[2024-09-30] MEDS: Immune Globulin 10% Gammagard 30 GM/300 ML VIAL IV (18:48)
[2024-09-30 20:51] LABS: Glucose, Whole Blood 85 mg/dL (60-115)
[2024-09-30] MEDS: Parenteral Nutrition 1,440 ML 60 ML IV (21:33)
[2024-09-30] MEDS: Latanoprost 0.005 % Ophth Sol 2.5 ML DROPS 1 DROP EYE-BOTH (21:34)
[2024-10-01 03:47] VITALS: BP 136/77; PULSE 56; RESP 18; TEMP 36.4; O2SAT 96
[2024-10-01 07:25] VITALS: BP 138/80; PULSE 60; RESP 18; TEMP 36.4; O2SAT 98
[2024-10-01 08:24] LABS: Triglycerides 76 mg/dL (<150)
[2024-10-01 08:29] LABS: Albumin Level 3.0 g/dL (3.5-5.0); Anion Gap 14 (12-20); Blood Urea Nitrogen 26 mg/dL (9-16); Calcium 8.2 mg/dL (8.4-10.2); Carbon Dioxide 24 mmol/L (22-29); Chloride 101 mmol/L (96-108); Creatinine Clr Calc Pharmacy 158.7; Estimated Glomerular Filt Rate > 60; Magnesium 2.2 mg/dL (1.6-2.6); Potassium 4.7 mmol/L (3.3-5.1); Sodium 134 mmol/L (135-145)
--- NOTE | 2024-10-01 08:39 | PC.RT ---
FVC 4.22L NIF -[id number]
[2024-10-01] MEDS: Dorzolamide HCl 2 % Ophth Sol 10 ML DRPBTL 1 DROP EYE-BOTH ×2 (08:52→15:58)
[2024-10-01] MEDS: 0.9 % Sodium Chloride Flush 3 ML SYRINGE IVFLUSH ×2 (08:52→15:58)
[2024-10-01] MEDS: Brimonidine Tartrate 0.2% Oph 5 ML BOTTLE 1 DROP EYE-BOTH ×2 (08:52→20:20)
--- NOTE | 2024-10-01 08:56 | HO.PM.IMPN ---
Subjective Subjective Date of Service: 10/01/24 Interval History: notes improvement Physical Exam Vital Signs: Vital Signs: Last Vital Signs Temp 97.6 F 10/01/24 07:25 Pulse 60 10/01/24 07:25 Resp 18 10/01/24 07:25 BP 138/80 10/01/24 07:25 Pulse Ox 98 10/01/24 07:25 O2 Del Method Room Air 10/01/24 07:25 O2 Flow Rate 96 09/28/24 15:47 BMI result Body Mass Index 38.0 Neuro: Other: Ptosis of the left eye. Bilateral facial weakness. Right deltoid weakness greater than left. Bilateral triceps weakness. Neck flexors are intact. Objective Data Active Medications Acetaminophen (Acetaminophen 325 Mg Tablet) 650 mg PO Q6H PRN PRN Reason: Pain, Mild 1-3,fever,headache Albuterol/Ipratropium (Albuterol/Iprat 2.5/0.5mg 3 Ml Ampul.Neb) 3 ml INHALE Q4H PRN PRN Reason: Shortness of Breath/Wheezing Aspirin (Aspirin 81 Mg Tab.Chew) 81 mg PO DAILY [facility] Last Admin: 10/01/24 08:39 Dose: Not Given Documented By: TRINI Non-Admin Reason: npo Atorvastatin Calcium (Atorvastatin Calcium 40 Mg Tablet) 40 mg PO BEDTIME [facility] On Hold: 09/26/24 17:06 Last Admin: 09/25/24 22:03 Dose: Not Given Documented By: ZOË Non-Admin Reason: npo Atropine Sulfate (Atropine Sulfate 1 Mg/10 Ml Syringe) 1 mg IVPUSH ONCE PRN PRN Reason: severe rebekah (just place at bedside) Azathioprine (Azathioprine 50 Mg Tablet) 50 mg PO BID [facility] Last Admin: 10/01/24 08:39 Dose: Not Given Documented By: TRINI Non-Admin Reason: npo Benzonatate (Benzonatate 100 Mg Capsule) 100 mg PO TID PRN PRN Reason: Cough Brimonidine Tartrate (Brimonidine Tartrate 0.2% Oph 5 Ml Bottle) 1 drop EYE-BOTH BID [facility] Last Admin: 10/01/24 08:52 Dose: 1 drop Documented By: TRINI Calcium Carbonate (Calcium Carbonate 750 Mg Tab.Chew) 750 mg PO Q4H PRN PRN Reason: Heartburn Cyanocobalamin (Cyanocobalamin (Vitamin B-12) 1,000 Mcg Tablet) 1,000 mcg PO DAILY [facility] Last Admin: 10/01/24 08:39 Dose: Not Given Documented By: TRINI Non-Admin Reason: npo Dextrose (Dextrose 50 % 25 Gm/50 Ml Syringe) 25 gm IVPUSH Q15M PRN; Protocol PRN Reason: per Hypoglycemia Standing Ord. Dorzolamide HCl (Dorzolamide Hcl 2 % Ophth Ashley 10 Ml Drpbtl) 1 drop EYE-BOTH TID [facility] Last Admin: 10/01/24 08:52 Dose: 1 drop Documented By: TRINI Enoxaparin Sodium (Enoxaparin Sodium 40 Mg/0.4 Ml Syringe) 40 mg SUBCUT Q24H [facility] Last Admin: 09/30/24 23:27 Dose: 40 mg Documented By: ERICKSON Famotidine (Famotidine 20 Mg Tablet) 20 mg PO BID [facility] On Hold: 09/26/24 17:06 Last Admin: 09/26/24 09:17 Dose: Not Given Documented By: AMERICA Non-Admin Reason: NPO Famotidine (Famotidine/Pf 20 Mg/2 Ml Vial) 20 mg IVPUSH DAILY [facility] Last Admin: 10/01/24 08:52 Dose: 20 mg Documented By: TRINI Glucose (Glucose Gel 15 Gm Gel..Gram.) 15 gm PO Q15M PRN; Protocol PRN Reason: per Hypoglycemia Standing Ord. Guaifenesin (Guaifenesin La 600 Mg Tab.Er.12h) 600 mg PO BID [facility] Last Admin: 10/01/24 08:40 Dose: Not Given Documented By: TRINI Non-Admin Reason: npo Immune Globulin (Gammagard 10%) 20 gm in 200 mls @ 65 mls/hr IV DAILY@1500 [facility] Stop: 10/01/24 18:05 Last Infusion: 09/30/24 18:39 Dose: Infused Documented By: TRINI Immune Globulin (Gammagard 10%) 30 gm in 300 mls @ 65 mls/hr IV DAILY@1806 [facility] Stop: 10/01/24 22:43 Last Infusion: 09/30/24 23:30 Dose: Infused Documented By: ERICKSON Nutrition (Parenteral) (Parenteral Nutrition) 1,440 mls @ 60 mls/hr IV .Q24H [facility]; Protocol Stop: 10/01/24 20:59 Last Admin: 09/30/24 21:33 Dose: 60 mls/hr Documented By: ERICKSON Insulin Human Lispro (Insulin Lispro 100 Unit/Ml 3 Ml Vial) 0 unit SUBCUT QIDACHS [facility]; Protocol Last Admin: 10/01/24 07:42 Dose: Not Given Documented By: TRINI Non-Admin Reason: No Insulin Coverage Latanoprost (Latanoprost 0.005 % Ophth Ashley 2.5 Ml Drops) 1 drop EYE-BOTH BEDTIME [facility] Last Admin: 09/30/24 21:34 Dose: 1 drop Documented By: ERICKSON Magnesium Hydroxide (Milk Of Magnesia 30 Ml Oral.Susp) 30 ml PO DAILY PRN PRN Reason: Constipation Melatonin (Melatonin 3 Mg Tablet) 6 mg PO BEDTIME PRN PRN Reason: Insomnia Metformin HCl (Metformin Hcl Er 500 Mg Tab.Er.24h) 500 mg PO BEDTIME [facility] On Hold: 09/26/24 17:06 Last Admin: 09/25/24 22:04 Dose: Not Given Documented By: ZOË Non-Admin Reason: npo Methylprednisolone Sodium Succinate (Methylprednisolone Sod Succ 40 Mg/Ml Vial) 20 mg IVPUSH Q12H [facility] Last Admin: 10/01/24 01:31 Dose: 20 mg Documented By: KATEY Ondansetron HCl (Ondansetron Hcl 4 Mg/2 Ml Vial) 4 mg IVPUSH Q8H PRN PRN Reason: Nausea and Vomiting Pharmacy Consult (Consult Rx Parenteral Nutrition Ordering) 1 each MISCELLANE DAILY PRN PRN Reason: Consult order Polyethylene Glycol (Polyethylene Glycol 3350 17 Gm Powd.Pack) 17 gm PO DAILY PRN PRN Reason: Constipation Pyridostigmine [place] (Pyridostigmine [place] 60 Mg Tablet) 60 mg PO BID [facility] Last Admin: 10/01/24 08:40 Dose: Not Given Documented By: TRINI Non-Admin Reason: npo Pyridostigmine [place] (Pyridostigmine [place] 10 Mg/2 Ml Ampul) 2 mg IVPUSH Q6H [facility] Last Admin: 10/01/24 07:22 Dose: 2 mg Documented By: KATEY Comments: med administered late d/t no stock Senna (Sennosides 8.6 Mg Tablet) 17.2 mg PO BEDTIME [facility] On Hold: 09/26/24 17:06 Last Admin: 09/25/24 22:04 Dose: Not Given Documented By: ZOË Non-Admin Reason: npo Sodium Chloride (0.9 % Sodium Chloride Flush 3 Ml Syringe) 3 ml IVFLUSH QSHIFT [facility] Last Admin: 10/01/24 08:52 Dose: 3 ml Documented By: TRINI Valsartan (Valsartan 40 Mg Tablet) 40 mg PO DAILY [facility] On Hold: 09/26/24 17:07 Last Admin: 09/26/24 09:17 Dose: Not Given Documented By: AMERICA Non-Admin Reason: NPO Vitamin D (Cholecalciferol (Vitamin D3) 25 Mcg Tablet) 25 mcg PO DAILY [facility] On Hold: 09/26/24 17:06 Last Admin: 09/26/24 09:16 Dose: Not Given Documented By: AMERICA Non-Admin Reason: NPO Labs 09/29/24 06:46 10/01/24 07:04 Labs: Laboratory Results - last 24 hr 09/30/24 09/30/24 10/01/24 11:06 20:47 07:04 Hold Purple Top SEE NOTE Anion Gap 14 Estim Creat Clear Calc 158.7 Estimated GFR > 60 POC Glucose 88 85 Random Glucose 111 Calcium 8.2 L Phosphorus 2.0 L Magnesium 2.2 Albumin 3.0 L Triglycerides 76 Assessment and Plan (1) Myasthenia gravis: Status: Acute Plan 69M PMH myasthenia gravis, obesity, hypertension, diabetes, Moore, GABY no longer on CPAP due to weight loss presented with worsening myasthenia symptoms Myasthenia gravis with acute exacerbation solumedrol 20 q12h Continue IVIG day 5 Unable to tolerate p.o.,changed pyridostigmine to IV Monitor FVC, and nif imprvoing slowly ppn while npo, digital ad trafficker following Diabetes Insulin Hypertension Monitor, not taking p.o. DVT prophylaxis Lovenox Full Code reason for continued hospitalization:ivig Quality Stroke Does the patient have a stroke diagnosis?: No Reason for No Anti-thrombotic by Day Two: N/A - Med Ordered VTE Prior VTE?: No VTE Risk Level:: Medical - moderate - high VTE Device Contraindication: N/A - Device Ordered VTE Drug Contraindication: N/A - Med Ordered
[2024-10-01 11:42] VITALS: BP 135/77; PULSE 60; RESP 19; TEMP 36.4; O2SAT 98
[2024-10-01 15:35] VITALS: BP 142/73; PULSE 57; RESP 18; TEMP 36; O2SAT 98
[2024-10-01] MEDS: Immune Globulin 10% Gammagard 20 GM/200 ML VIAL IV (15:57)
[2024-10-01 16:15] LABS: Glucose, Whole Blood 135 mg/dL (60-115)
[2024-10-01 19:00] VITALS: BP 142/80; PULSE 65; RESP 18; TEMP 36.6; O2SAT 99
[2024-10-01] MEDS: Immune Globulin 10% Gammagard 30 GM/300 ML VIAL IV (19:18)
[2024-10-01] MEDS: Latanoprost 0.005 % Ophth Sol 2.5 ML DROPS 1 DROP EYE-BOTH (20:20)
[2024-10-01] MEDS: Parenteral Nutrition 1,920 ML 80 ML IV (20:20)
[2024-10-01 20:56] LABS: Glucose, Whole Blood 123 mg/dL (60-115)
[2024-10-01 23:09] VITALS: BP 136/79; PULSE 56; RESP 16; TEMP 36.4; O2SAT 98
[2024-10-02] MEDS: Dorzolamide HCl 2 % Ophth Sol 10 ML DRPBTL 1 DROP EYE-BOTH ×2 (00:10→08:09)
[2024-10-02] MEDS: 0.9 % Sodium Chloride Flush 3 ML SYRINGE IVFLUSH ×2 (00:11→08:10)
[2024-10-02 03:11] VITALS: BP 144/78; PULSE 75; RESP 18; TEMP 36.2; O2SAT 99
[2024-10-02 07:21] LABS: Glucose, Whole Blood 122 mg/dL (60-115)
[2024-10-02 07:21] LABS: Glucose, Whole Blood 112 mg/dL (60-115)
[2024-10-02 07:21] LABS: Glucose, Whole Blood 90 mg/dL (60-115)
[2024-10-02 07:38] LABS: Glucose, Whole Blood 118 mg/dL (60-115)
[2024-10-02 08:00] VITALS: BP 138/82; PULSE 63; RESP 18; TEMP 36.4; O2SAT 98
[2024-10-02] MEDS: Brimonidine Tartrate 0.2% Oph 5 ML BOTTLE 1 DROP EYE-BOTH (08:09)
--- NOTE | 2024-10-02 08:17 | MHC.SL.SWA ---
Speech Pathologist Impression: Risk of Aspiration, Pharyngeal Dysphagia Risk of Aspiration Due to: MG flare Dysphasia Diet Status:Start conservatively on NDD1/THIN Liquid Consistency and Strategies for Safe Swallow: Liquid Intake Recommendation: Thin Liquid Intake Strategies: Small Sips Solid Food Consistency: Dietary Recommendations: Pureed (NDD1) Additional Modifications to Solid Foods: Patient's swallow continues to improve, note unremarkable oral phase, timely swallow trigger, and partial laryngeal elevation. Patient is managing secretions well, though his voice is still weak. No overt s/s of aspiration with trials of pudding and water. Recommend start on PUREED (NDD1) diet and THIN liquids, pills CRUSHED or WHOLE in PUREE. SCHOOL BUS TECHNICIAN to re-evaluate tomorrow for potential advancement. Oral Medication Intake: Crushed with Puree Please contact the pharmacy regarding appropriate crushable or liquid drug formulations that are available whenever modified delivery is recommended. Compensatory Strategies and Precautions to be Taken for Safe Swallow: Sitting Upright (90 deg) Small Bites and Sips Alternate Liquids/Solids Rate of Ingestion Change Supervision While Eating and Drinking for Safe Swallow: Intermittent Supervision Swallowing Recommended Treatments: Compens. Strategy Educat. Recommendation for Speech: Inpatient Speech Therapy Frequency/Duration: Daily M-F Date Range for Service Req: Timeline to reassess: Supply Crib Attendant Clinican/Clinical Fellow: No Supervisory Statement: I have reviewed and agree with the student/clinical fellow's documentation: N/A Speech Language Pathologist: Laura Lane M.A., [facility]-SCHOOL BUS TECHNICIAN
[2024-10-02 08:51] LABS: Hematocrit 36.5 % (42.0-52.0); Hemoglobin 13.3 g/dl (14.0-18.0); Mean Corpuscular HGB Conc 36.4 g/dl (31.0-36.0); Mean Corpuscular Hemoglobin 32.6 pg (27.0-33.0); Mean Corpuscular Volume 89.5 fL (80.0-98.0); NRBC Abs Auto 0.020 X10*3/uL (0.0-0.012); NRBC Pct Auto 0.2 /100WBC (0.0-0.2); Platelet Count 150 X10*3/uL (160-400); Red Blood Count 4.08 X10*6/uL (4.60-5.80); White Blood Count 11.7 X10*3/uL (4.8-10.8)
[2024-10-02 09:04] LABS: Albumin Level 2.9 g/dL (3.5-5.0); Anion Gap 10 (12-20); Blood Urea Nitrogen 24 mg/dL (9-16); Calcium 8.4 mg/dL (8.4-10.2); Carbon Dioxide 22 mmol/L (22-29); Chloride 106 mmol/L (96-108); Creatinine Clr Calc Pharmacy 149.3; Estimated Glomerular Filt Rate > 60; Magnesium 2.0 mg/dL (1.6-2.6); Potassium 4.8 mmol/L (3.3-5.1); Sodium 133 mmol/L (135-145)
--- NOTE | 2024-10-02 10:59 | PM.DS ---
DS: Providers Provider Date of Service: 10/02/24 Date of admission: 09/24/24 21:19 Date of discharge: 10/02/24 Primary care physician: Christopher Wang MD Consults: 09/24/24 22:17 Consult to Neurology Routine Consulting Provider: [facility] Reason for consultation: Myasthenia Gravis, symptomatic Has provider been notified: No 09/27/24 12:04 Consult to Neurology Routine Consulting Provider: [facility] Reason for consultation: worsening MG exacerbation DS: Diagnosis Discharge Diagnosis (1) Myasthenia gravis: Status: Acute DS: Summary Hospital Course Hospital Course: from initial hpi: 69 yo male with PMH NIDDM, HTN, Obesity, hiatal hernia, GERD, MG on mestinoin, WILKERSON, GABY no longer on CPAP due to wt loss, presents to ED with left eye droop, chest pressure and noted dysphagia since completing Cipro for recent UTI. Pt has list of medications that are contraindicated for pt's with MG but did not realize CIPRO was a fluoroquinolone. Pt beleives his symptoms stem from taking CIPRO for recent UTI. Pt was switched to macrobid and completed treatment yesterday. Pt has been keeping in tough with his Neuorologist at [facility], Dr Noel and was started on a prednisone taper this past Thursday. While n Cipro, Pt started having issues with left eye droop, chest pressure and dysphagia. Since receiving decadron in the ED, pt's symptoms have improved greatly. 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 Pt's last MG exacerbation was 6 years ago in [place] and he was hospitalized for one week. Pt has been following with [facility] neurology and has had discussions about thymus removal but no plan is in place currently. Pt is on mestinoin BID. Pt is planning on switching to [facility] neurology for care mgmt of his MG. Pt normally has trouble walking due to his chronic neuropathy and uses a cane usually. Pt denies any recent falls or injuries. Pt no longer drives as the act causes him significant anxiety. hospital course: Patient was admitted for myasthenia gravis with acute exacerbation. Was initially given high-dose steroids but had minimal improvement then started IVIG completed 5 day course and had significant improvement in FVC and negative inspiratory pressure dysphagia improved to point where patient is now tolerating solids and swallowing pills. Prior to being able to swallow patient did require PPN. He is now doing much better will be discharged on prednisone 20 mg daily, Mestinon 60 mg 3 times a day, azathioprine and follow up with Neurology. For diabetes was continued on insulin. For hypertension we will restart Arb losartan on discharge. Time Attestation Discharge Coordination Time (in mins): 34 Quality: Safe Use of Opioids Does Pt have an Active Cancer Diagnosis on the Problem List?: No Quality: Stroke Does the patient have a stroke diagnosis?: No Physical Exam Exam: Exam: General: AO X 3, no acute distress Resp: CTA bilateral, no accessory muscles used CVS: S1,S2,RRR GI: soft, non tender, non distended Neuro: improved weakness Psych: appropriate affect, appropriate insight Vital Signs: Vital Signs: Last Vital Signs Temp 97.5 F 10/02/24 08:00 Pulse 63 10/02/24 08:00 Resp 18 10/02/24 08:00 BP 138/82 10/02/24 08:00 Pulse Ox 98 10/02/24 08:00 O2 Del Method Nasal Cannula 10/02/24 08:00 O2 Flow Rate 1 10/02/24 08:00 BMI result Body Mass Index 38.0 DS: Data Data Completed and Pending Labs on day of discharge: Laboratory Results - last 24 hr 09/30/24 10/01/24 10/01/24 16:03 07:48 11:31 WBC RBC Hgb Hct MCV MCH MCHC RDW Plt Count MPV Absolute Nucleated RBC Nucleated RBC % (auto) Sodium Potassium Chloride Carbon Dioxide Anion Gap BUN Creatinine Estim Creat Clear Calc Estimated GFR POC Glucose 90 122 H 112 Random Glucose Calcium Phosphorus Magnesium Albumin 10/01/24 10/01/24 10/02/24 16:11 20:51 07:24 WBC RBC Hgb Hct MCV MCH MCHC RDW Plt Count MPV Absolute Nucleated RBC Nucleated RBC % (auto) Sodium Potassium Chloride Carbon Dioxide Anion Gap BUN Creatinine Estim Creat Clear Calc Estimated GFR POC Glucose 135 H 123 H 118 H Random Glucose Calcium Phosphorus Magnesium Albumin 10/02/24 08:04 WBC 11.7 H RBC 4.08 L Hgb 13.3 L Hct 36.5 L MCV 89.5 MCH 32.6 MCHC 36.4 H RDW 16.4 H Plt Count 150 L MPV 10.8 Absolute Nucleated RBC 0.020 H Nucleated RBC % (auto) 0.2 Sodium 133 L Potassium 4.8 Chloride 106 Carbon Dioxide 22 Anion Gap 10 L BUN 24 H Creatinine 0.68 Estim Creat Clear Calc 149.3 Estimated GFR > 60 POC Glucose Random Glucose 108 Calcium 8.4 Phosphorus 2.8 Magnesium 2.0 Albumin 2.9 L Discharge Plan Discharge Anticipated Discharge Date/Time: 10/02/24 10:55 Patient Disposition: Home, Self-Care Discharge Diagnosis: myasthenia flare Referrals: Christopher Wang MD [Primary Care Provider, Medical] - 1 Week Ricky Florence MD [Physician, Neurology] - 1 Week Discharge Medications: Continued atorvastatin 40 mg tablet 40 mg PO QPM Qty: 90 3RF simethicone [Gas Relief Extra Strength] 125 mg capsule 125 mg PO TID PRN (Reason: bloating) cyanocobalamin (vitamin B-12) 1,000 mcg tablet 1,000 mcg PO DAILY azathioprine 50 mg tablet 50 mg PO BID benzonatate 100 mg capsule 100 mg PO TID PRN (Reason: cough) metformin 500 mg tablet extended release 24 hr 500 mg PO BEDTIME cholecalciferol (vitamin D3) 25 mcg (1,000 unit) tablet 25 mcg PO DAILY Simbrinza 1-0.2 % drops,suspension 1 drp ophthalmic (eye) BID aspirin 81 mg tablet,chewable 81 mg PO DAILY famotidine 20 mg tablet 20 mg PO BID latanoprost 0.005 % drops 1 drp ophthalmic (eye) BEDTIME calcium carbonate-vitamin D3 600 mg-10 mcg (400 unit) tablet 1 tab PO BID irbesartan 75 mg tablet 75 mg PO QAM Qty: 90 3RF Changed prednisone 10 mg tablet 20 mg PO DAILY Qty: 60 0RF Taper: Prednisone 20 mg daily for 1 Day and 0 Hour 10 mg daily for 1 Day and 0 Hour pyridostigmine bromide 60 mg tablet 60 mg PO Q8H Qty: 180 0RF Discharge Orders: Discharge Order (Routine); Ordered 10/02/24 Ordered By: Bert Can Diet: Advance to usual diet Activity on Discharge: As tolerated Stand Alone Forms: Patient Portal Discharge page Print Language: [place] Care Plan Goals: recovery Health Concerns: myasthenia Plan of Treatment: prednisone 20mg daily, mestinon 60 3 times per day, azathioprine, follow up with neuro continue pureed diet Assessment: see above
[2024-10-02 11:54] LABS: Glucose, Whole Blood 111 mg/dL (60-115)
[2024-10-02 12:00] VITALS: BP 128/83; PULSE 88; RESP 18; TEMP 36.2; O2SAT 99
--- NOTE | 2024-10-02 12:27 | MHC.CM.PN ---
Second IMM given 10/02, pt medically cleared for discharge home self-care, pt arranged his own transport home.
== END 2024-10-02 12:00 | disposition home or self-care (01) | DRG 57 ==
LOC: HO.ED 21:12 → HO.EDOVER 21:41 → HO.IMC 09-25 19:34
PROVIDERS: Hospitalist; Internal Medicine; Nurse Practitioner Acute Care; Nurse Practitioner Family; Physician Assistant; Physician Assistant Medical; Admitting Provider Student in an Organized Health Care Education/Training Program; Emergency Provider Student in an Organized Health Care Education/Training Program; PCP Internal Medicine; Visit Provider Internal Medicine
DX: G70.01 Myasthenia gravis with (acute) exacerbation (principal); K75.81 Nonalcoholic steatohepatitis (NASH); I10 Essential (primary) hypertension; E11.9 Type 2 diabetes mellitus without complications; Z79.82 Long term (current) use of aspirin; Z79.84 Long term (current) use of oral hypoglycemic drugs; Z79.899 Other long term (current) drug therapy
CPT/HCPCS: 36415; 80048; 80053; 80076; 81003; 82040; 82803; 82947; 83735; 84100; 84478; 84484; 85025; 85027; 85652; 86140; 92526; 92610; 93005; 94010; 94640; 99285; J0131; J0461; J1100; J1308; J1569; J1650; J2919; J7120

== ENCOUNTER → 2024-09-24 18:33 | Outpatient (BNV) | payer BC, SELFPAY | PROVIDERS: Admitting Provider Student in an Organized Health Care Education/Training Program; Emergency Provider Student in an Organized Health Care Education/Training Program; PCP Internal Medicine; Visit Provider Internal Medicine | DX: I45.10 Unspecified right bundle-branch block (principal) | CPT/HCPCS: 93010 ==

== ENCOUNTER 2024-09-24 21:19 | Outpatient (BNV) | payer MEDICARE, SELFPAY | END 2024-09-25 18:15 | PROVIDERS: Admitting Provider Student in an Organized Health Care Education/Training Program; Emergency Provider Student in an Organized Health Care Education/Training Program; PCP Internal Medicine; Visit Provider Internal Medicine Cardiovascular Disease | DX: I45.10 Unspecified right bundle-branch block (principal) | CPT/HCPCS: 93010 ==

== ENCOUNTER → 2024-09-24 21:19 | Outpatient (BNV) | payer BC, SELFPAY | PROVIDERS: Admitting Provider Student in an Organized Health Care Education/Training Program; Emergency Provider Student in an Organized Health Care Education/Training Program; PCP Internal Medicine; Visit Provider Nurse Practitioner Family | DX: G70.01 Myasthenia gravis with (acute) exacerbation (principal); E11.9 Type 2 diabetes mellitus without complications | CPT/HCPCS: 99232; 99499 ==

== ENCOUNTER → 2024-09-24 21:19 | Outpatient (BNV) | payer MEDICARE, SELFPAY | PROVIDERS: Admitting Provider Student in an Organized Health Care Education/Training Program; Emergency Provider Student in an Organized Health Care Education/Training Program; PCP Internal Medicine; Visit Provider Psychiatry & Neurology Neurology | DX: G70.01 Myasthenia gravis with (acute) exacerbation (principal) | CPT/HCPCS: 99232 ==

== ENCOUNTER 2024-10-06 10:35 | Outpatient (AMB) | payer MEDICARE, SELFPAY ==
--- OUTSIDE RECORDS SUMMARY | 2023-05-15 07:30 | XMS_ITS ---
Author Organization [facility] Address [address] [place] [address] Care Team Providers Care Columnist/Commentator Name Role Phone Christopher Wang M.D. Primary Care Provider Un available Rubén Bruce Jr Unavailable REASON FOR VISIT abnormal UGI, dysphagia Problems Problem Type SNOMED Code ICD Code Onset Dates Problem Status W/U Status Risk Notes Problem Gastro-esophagea l reflux disease without esophagitis (431405465) Gastro-esophage al reflux disease without esophagitis (K21.9) Active confirmed Encounters Encounter Location Date Provider Diagnosis [facility] Outpatient [address] [place] [id number] 05/15/2023 Rubén Bruce Jr Abnormal CT scan, esophagus R93.3 ; Gastro-esophageal reflux disease without esophagitis K21.9 and Other dysphagia R13.19 Assessments Encounter Date Diagnosis (ICD Code) Assessment Notes Treatment Notes Treatment Clinical Notes Section Notes 05/15/[address] scan, esophagus (ICD-10 - R93.3) 05/15/2023 Gastro-esophagea l reflux disease without esophagitis (ICD-10 - K21.9) 05/15/2023 Other dysphagia (ICD-10 - R13.19) Plan Of Treatment Next Appt Details Provider Name:Rubén topete Jr, 01/04/2025 10:40:00 AM, [address], [address], [place], [address], Progress Notes * ANAIS JAEGERDOB:10/1955 (69 yo M)Acc No.[id number]:05/15/2023 EGD/MAC Patient: ANAIS BULLOCK Provider: Barbra Bruce MD :1955 A ge:67 Y S ex:Male Date:05/15/2023 Address:[address] [place] [address] Pcp:Christopher Wang M.D. Subjective: * Chief Complaints: * 1 . abnormal UGI, dysphagia. * Medical History: Objective: * Vitals: Assessment: * Assessment: 1. A bnormal CT scan, esophagus - R93.3 (Primary) 2 . G liss-esophageal reflux disease without esophagitis - K21.9 3 . O ther dysphagia - R13.19 ? Plan: * Treatment: * Procedure Codes: 4 3239 UPPER GI ENDOSCOPY, BIOPSY, 00268 ESOPH ENDOSCOPY, DILATION, Modifiers: 59 * * The named appointment provid er may or may not be the originator of this progress note, and it is not deemed complete until electronically signed by the appointment provider. Sign off status: Pending * Provider: Barbra Bruce MD Date: 05/15/2023 Generated for Ted santana/Winston/Yesyitting on: 10/06/2024 12:04 PM EDT
--- NOTE | 2024-10-06 11:05 | MHC.OFFVIS ---
Intake Visit Reasons: hospital f/u Allergies No Known Allergies (No Known Allergies*) Allergy (Verified 09/24/24 17:53) Medication List - Last Reconciled 10/06/24 by Elsa Ravi MD aspirin 81 mg PO DAILY atorvastatin 40 mg PO QPM azathioprine 50 mg PO BID benzonatate 100 mg PO TID PRN brinzolamide-brimonidine 1-0.2 % (Simbrinza) 1 drp ophthalmic (eye) BID calcium carbonate-vitamin D3 600 mg-10 mcg (400 unit) 1 tab PO BID cholecalciferol (vitamin D3) 25 mcg PO DAILY cyanocobalamin (vitamin B-12) 1,000 mcg PO DAILY famotidine 20 mg PO BID irbesartan 75 mg PO QAM latanoprost 0.005% 1 drp ophthalmic (eye) BEDTIME metformin ER 500 mg PO BEDTIME prednisone 20 mg See Taper PO DAILY pyridostigmine bromide 60 mg PO Q8H simethicone (Gas Relief Extra Strength) 125 mg PO TID PRN HPI Comments Details: 69 years old man with antibody positive myasthenia gravis that was diagnosed in 2015 presenting with difficulty speaking and swallowing. Acetyl choline receptor antibody titers, blocking, binding, and modulating, were high. CT chest at that time revealed lung nodules with possibility of granulomatous disease but no thymus lesion. He was taking prednisone and pyridostigmine in 2016 when he switched his care to [facility]. In September of 2024, he was admitted at [facility] with exacerbation of myasthenia gravis. His neurologist at [facility] head suggested that he could not take IVIG due to possibility of hemolytic anemia and similarly could not be treated with plasmapheresis. He had been taking azathioprine but his symptoms continued to worsen. In hospital, he was treated with IVIG without complications. He wanted to switch back his care to this office and was here for follow-up. He is presenting with concerns primarily related to myasthenia gravis. Treatment for this condition included recent intravenous immunoglobulin therapy for five days, leading to improvements in speech, swallowing, and general muscle strength. Prednisone has played a role in ongoing management. Current symptoms have shown some improvement since Thursday, particularly in dysphagia and respiratory functioning, although some dysarthria persists. There is a significant history of hypertension and type 2 diabetes mellitus, both under pharmacological management. Glaucoma and hyperlipidemia are managed with medications, and benzonatate was prescribed for a chronic cough but is used episodically. The patient denies any recent IV plasmapheresis, though past exacerbations of myasthenia required hospital treatments. [facility] Medical History Lipoma Coronary atherosclerosis Costochondritis Elevated cholesterol WILKERSON (nonalcoholic steatohepatitis) Sleep apnea Normocytic anemia Hypertension Diabetes Myasthenia gravis Surgical History S/P excision of lipoma (05/11/23) Hx laparoscopic cholecystectomy H/O colonoscopy Hx of partial thyroidectomy Hx of cardiac catheterization H/O meniscectomy of right knee H/O spinal fusion Family History Mother No problems noted. Father No problems noted. Social History Household Members: Spouse Housing: House Are you a primary career technology teacher to a significant other at home: No Do you presently have visiting nurse or other home services: No Alcohol intake: never Patient Tobacco Use Status: Never used Tobacco service: No Current occupational status: disabled Review of Systems Const Details: - Neurological: Reports improvement in speech and swallowing post-treatment. - Gastrointestinal: Reports swallowing improvement. - Respiratory: Reports chronic cough, benzonatate used as needed. - Cardiovascular: Denies any new cardiovascular symptoms. Hypertension managed with medication. - Endocrine: Denies hypoglycemic events. Type 2 diabetes mellitus managed with medication. - Ophthalmologic: Glaucoma management ongoing. Physical Exam Neuro Other: Mental Status: Alert and oriented to person, place, and time. Normal attention. Normal spontaneous speech, fluency, and comprehension. No obvious issues with mood and memory. Affect is appropriate. Cranial Nerves: CN II: Visual cristina full to confrontation, visual acuity intact. CN III, IV, : Pupils equal, round, reactive to light and accommodation. Extraocular movements are normal. CN V: Facial sensation is normal. CN VII: Facial movements symmetrical. CN VIII: Hearing intact to bedside conversation is normal. CN IX, X: Palate elevates symmetrically. CN XI: Shoulder shrug and head turn symmetrical. CN XII: Tongue midline without atrophy or fasciculations. Mild difficulty getting out of chair and walking with a cane. No obvious ptosis. Extrapyramidal: Full facial expressions and blinking. No rigidity. Movements are appropriate with no tremor or abnormality. Speech: Normal; no dysarthria or tremor. Assessment & Plan Assessment & Plan (1) Myasthenia gravis: Comment: ACR ABs at [facility] in August 2015: all three elevated. MRI brain WO at [facility] in 2024: Mild small vessel ischemic disease CTA chest at [facility] in 2022: [place] NCV/EMG LE 09/12/15 BILATERAL LOWER LUMBAR RADICULOPATHY. MODERATELY SEVERE AXONAL SENSORY AND MOTOR PERIPHERAL NEUROPATHY. 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 MRI brain WO at [facility] in Feb 2015: OK CT chest at [facility] in Sep 2015: three lung nodules, probably granulomatous, thymus is ok. 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 He had complications of IV Ig causing anemia but recently he had to have another treatment. He has improved with IV Ig for now. Rec: a: Azathiprine 50mg bid b: Folic acid 1mg a day c: Prednisone 10mg bid until end of this month. Starting Oct 17, start taking 15mg a day (1 1/2 of 10mg tabs) d: Pyridostigmine 60mg tid e: If situations worsens again, may consider biological drug like Vyvgart f: CBC Orders: Orders Complete Blood Count Auto Diff Today G70.00 - Myasthenia gravis without (acute) exacerbation Medications: New folic acid 1 mg PO DAILY 90 tabs 1RF prednisone 10 mg (2 x 5 mg) PO BID 360 tabs 0RF Coding Level of Care Code Est Pt Level 5 (40279) Diagnoses Myasthenia gravis G70.00
--- OUTSIDE RECORDS SUMMARY | 2024-10-06 12:04 | XMS_ITS | Encounter Summary ---
Author Organization [employer] Address [address] [place] [address] Care Team Providers Care Prefitter Name Role Phone Christopher Wang MD Primary Care Provider [phone] Reason for Visit * Reason Comments Med Refill Encounter Details Date Type Department Care Team ([facility] st Contact Info) Description 04/07/2022 Refill [facility] MED & PEDS [address] [place], [place] [phone] Christopher Wang MD [address] [place] [address] Primary hypertension (Primary Dx); Type 2 diabetes mellitus without complication, without long-term current use of insulin ([facility]); Vitamin B12 deficiency Social History Tobacco Use [...] Care Team (Late st Contact Info) Description 10/10/2024 1:15 PM EDT Office Visit [facility] MED & PEDS [address] [place] [address] Christopher Wang MD [address] [place] [address] 11/07/2024 9:15 AM EDT Office Visit [facility] MED & PEDS [address] [place] [address] Christopher Wang MD [address] [place] [address] documented as of this encounter Visit Diagnoses Diagnosis Primary hypertension- Primary Unspecified essential hypertension Type 2 diabetes mellitus without complication, without long-term current use of insulin ([facility]) Vitamin B12 deficiency Other B-complex deficiencies documented in this encounter Additional Health Concerns Assessment Noted Time PHQ-9 Depression Total Score: 0 03/04/19 23 9:18 AM EST documented as of this encounter Care Teams Prefitter Relationship Specialty Start Date End Date Christopher Wang MD [address] [place] [address] PCP - General Internal Medicine 08/23/19 documented as of this encounter
--- OUTSIDE RECORDS SUMMARY | 2024-10-06 12:04 | XMS_ITS | Encounter Summary ---
Author Organization [facility] Address [address] [place] [address] Care Team Providers Care Cutter Finisher Name Role Phone Christopher Wang MD Primary Care Provider [phone] Encounter Details Date Type Department Care Team (Late st Contact Info) Description 06/28/2024 Lab Requisition [facility] - Main Lab [address] [place] [address] Steve Miner MD [address] [address] Nodular prostate without lower urinary tract symptoms Social History Tobacco Use Types Packs/Day Years Used Date Smoking Tobacco: Never Assessed Sex and Gender Information Value Date Recorded Sex Assigned at Not on file Legal Sex Male 8:56 PM EST Gender Identity Not on file Sexual Orientation Not on file documented as of this encounter Plan of Treatment Not on file documented as of this encounter Procedures Procedure Name Priority Date/Time Associated Diagnosis Comments PROSTATE SPECIFIC ANTIGEN DIAGNOSTIC Routine 06/28/2024 9:09 AM EDT Nodular prostate without lower urinary tract symptoms documented in this encounter Results * Prostate specific antigen diagnostic (06/28/2024 9:09 AM EDT) PSA 0.45 0.00 - 4.00 ng/mL LAB CHEMISTRY METHOD 06/28/2024 2:10 PM EDT [facility] Blood Venous blood specimen / Unknown 06/28/2024 9:09 AM EDT 06/28/2024 12:51 PM EDT Narrative [facility] - 06/28/2024 2:10 PM EDT The Siemens Advia Centaur Chemiluminescent Immunoassay is used. Results obtained with different assay methods or kits cannot be used interchangeably. Results cannot be interpreted as absolute evidence of the presence or absence of malignant disease. us Steve Miner MD LAB BLOOD ORDERABLES Final Resul t [facility] [address] [place] [address], documented in this encounter Visit Diagnoses Diagnosis Nodular prostate without lower urinary tract symptoms documented in this encounter Care Teams Cutter Finisher Relationship Specialty Start Date End Date Christopher Wang MD [address] [place] [address] PCP - General 04/28/14 documented as of this encounter
== END 2024-10-06 11:27 | disposition home or self-care (01) ==
LOC: HO.HSM 10:35
PROVIDERS: PCP Internal Medicine; Visit Provider Psychiatry & Neurology Neurology
DX: G70.00 Myasthenia gravis without (acute) exacerbation (principal)
CPT/HCPCS: 99214

== ENCOUNTER 2024-10-06 10:35 | Outpatient (REF) | payer MEDICARE, SELFPAY ==
[2024-10-06 12:05] LABS: MANUAL DIFF FLAG NO
[2024-10-06 12:51] LABS: Hematocrit 29.3 % (42.0-52.0); Hemoglobin 10.2 g/dl (14.0-18.0); Imm Gran Abs Auto 0.28 X10*3/uL (0.00-0.03); Imm Gran Pct Auto 2.2 % (0.0-0.4); Lymphocytes Absolute Auto 2.3 X10*3/uL (1.2-4.9); Mean Corpuscular HGB Conc 34.8 g/dl (31.0-36.0); Mean Corpuscular Hemoglobin 31.3 pg (27.0-33.0); Mean Corpuscular Volume 89.9 fL (80.0-98.0); NRBC Abs Auto 0.110 X10*3/uL (0.0-0.012); NRBC Pct Auto 0.9 /100WBC (0.0-0.2); Platelet Count 147 X10*3/uL (160-400); Red Blood Count 3.26 X10*6/uL (4.60-5.80); White Blood Count 12.8 X10*3/uL (4.8-10.8)
[2024-10-06 13:39] LABS: PSA,Total (Free>4and<10) 0.87 ng/mL (0.00-4.00)
== END 2024-10-06 10:36 | disposition home or self-care (01) ==
LOC: HO.LAB 10:35
PROVIDERS: Internal Medicine; PCP Internal Medicine; Visit Provider Psychiatry & Neurology Neurology
DX: G70.00 Myasthenia gravis without (acute) exacerbation (principal); M17.0 Bilateral primary osteoarthritis of knee; N39.0 Urinary tract infection, site not specified; R31.9 Hematuria, unspecified; Z12.5 Encounter for screening for malignant neoplasm of prostate; Z79.899 Other long term (current) drug therapy
CPT/HCPCS: 36415; 84153; 85025; 85652; 86140; 99212

== ENCOUNTER 2024-10-10 14:11 | Outpatient (REF) | payer MEDICARE, SELFPAY ==
--- OUTSIDE RECORDS SUMMARY | 2023-05-15 07:30 | XMS_ITS ---
Author Organization [facility] Address [address] [place] [address] Care Team Providers Care Front Desk Receptionist Name Role Phone Christopher Wang M.D. Primary Care Provider Un available Rubén Bruce Jr Unavailable REASON FOR VISIT abnormal UGI, dysphagia Problems Problem Type SNOMED Code ICD Code Onset Dates Problem Status W/U Status Risk Notes Problem Gastro-esophagea l reflux disease without esophagitis (526626297) Gastro-esophage al reflux disease without esophagitis (K21.9) Active confirmed Encounters Encounter Location Date Provider Diagnosis [facility] Outpatient [address] [place] [id number] 05/15/2023 Rubén Bruce Jr Abnormal CT scan, [...] 10:40:00 AM, [address], [address], [place], [address], Progress Notes * ANAIS JAEGERDOB:10/1955 (69 yo M)Acc No.[id number]:05/15/2023 EGD/MAC Patient: ANAIS BULLOCK Provider: Barbra Bruce MD :1955 A ge:67 Y S ex:Male Date:05/15/2023 Address:[address] [place] [address] Pcp:Christopher Wang M.D. Subjective: * Chief Complaints: * 1 . abnormal UGI, dysphagia. * Medical History: Objective: * Vitals: Assessment: * Assessment: 1. A bnormal CT scan, esophagus - R93.3 (Primary) 2 . G liss-esophageal reflux disease without esophagitis - K21.9 3 . O ther dysphagia - R13.19 ? Plan: * Treatment: * Procedure Codes: 4 3239 UPPER GI ENDOSCOPY, BIOPSY, 76285 ESOPH ENDOSCOPY, DILATION, Modifiers: 59 * * The named appointment provid er may or may not be the originator of this progress note, and it is not deemed complete until electronically signed by the appointment provider. Sign off status: Pending * Provider: Barbra Bruce MD Date: 05/15/2023 Generated for Ted santana/Winston/Yesyitting on: 10/10/2024 03:36 PM EDT
--- OUTSIDE RECORDS SUMMARY | 2024-10-10 13:15 | XMS_ITS | Encounter Summary ---
Author Organization [employer] Address [address] [place] [address] Care Team Providers Care Technical Services Assistant Name Role Phone Christopher Wang MD Primary Care Provider [phone] Reason for Referral * Consultation (Urgent) - Pending Review Specialty Diagnoses / Procedures Referred By Diomedes dover Referred To Contact Nutrition Diagnoses Other dysphagia Christopher Wang MD [address] [place] [address] Phone: tel: fax: Referral ID Status Reason Start Date Expiration Date Visits Requested Visits Authorized [id number] Pending Review Specialty Services Required 10/10/2024 10/10/2025 1 1 Encounter Details Date Type Department Care Team (Late st Contact Info) Description 10/10/2024 1:15 PM EDT Office Visit [facility] CHC MED & PEDS [address] [place] [address] Christopher Wang MD [address] [place] [address] Myasthenia gravis (CMS/HCC) (Primary Dx); Other dysphagia; Normocytic anemia; Primary hypertension Social History Tobacco Use Types Packs/Day Years [...] Answer Date Recorded Patient Health Questionnaire-9 Score 10 09/23/2024 Patient Health Questionnaire-9 Score 10 09/23/2024 Last PHQ-9: Questionnaire Data Not on file 0 09/23/2024 Housing Stability Answer Date Recorded What is [...] Answer Date Recorded Patient Health Questionnaire-2 Score 2 09/23/2024 Internet Access Answer Date Recorded Internet Access [...] Sign Reading Time Taken Comments Blood Pressure 166/85 10/10/2024 1:21 PM EDT Pulse 95 10/10/2024 1:21 PM EDT Temperature - - Respiratory Rate 20 10/10/2024 1:21 PM EDT Oxygen Saturation 99% 10/10/2024 1:21 PM EDT Inhaled Oxygen Concentration - - Weight 122 kg (270 lb) 10/10/2024 1:21 PM EDT Height 185.4 cm (6' 1 ) 10/10/2024 1:21 PM EDT Body Mass Index 35.62 10/10/2024 1:21 PM EDT documented in this encounter Plan of Treatment Upcoming Encounters Date Type Department Care Team (Late st Contact Info) Description 11/07/2024 9:15 AM EDT Office Visit [facility] MED & PEDS [address] [place] [address] Christopher Wang MD [address] [place] [address] Scheduled Orders Name Type Priority Associated Diagnoses Orde r Schedule CBC auto differential Lab Routine Myasthenia gravis (CMS/HCC) Expected: 10/10/2024 (Approximate), Expires: 10/10/2025 Scheduled Referrals Name Type Priority Associated Diagnoses Orde r Schedule Referral to Nutrition Services Outpatient Referral Urgent Other dysphagia Expected: 10/10/2024 (Approximate), Expires: 10/10/2025 documented as of this encounter Visit Diagnoses Diagnosis Myasthenia gravis (CMS/HCC)- Primary Myasthenia gravis without exacerbation Other dysphagia Normocytic anemia Unspecified anemia Primary hypertension Unspecified essential hypertension documented in this encounter Additional Health Concerns Assessment Noted Time PHQ-9 Depression Total Score: 10 025 3:14 PM EDT documented as of this encounter Care Teams Technical Services Assistant Relationship Specialty Start Date End Date Christopher Wang MD [address] [place] [address] PCP - General Internal Medicine 08/23/19 documented as of this encounter
--- OUTSIDE RECORDS SUMMARY | 2024-10-10 15:36 | XMS_ITS | Encounter Summary ---
Author Organization [employer] Address [address] [place] [address] Care Team Providers Care Dinkey Engine Operator Name Role Phone Christopher Wang MD Primary Care Provider [phone] Reason for Visit * Reason Comments Med Refill Encounter Details Date Type Department Care Team ([facility] st Contact Info) Description 04/07/2022 Refill [facility] MED & PEDS [address] [place], [place] [phone] Christopher Wang MD [address] [place] [address] Primary hypertension (Primary Dx); Type 2 diabetes mellitus without complication, without long-term current use of insulin ([facility]); Vitamin B12 deficiency Social History Tobacco Use [...] Description 11/07/2024 9:15 AM EDT Office Visit [facility] MED & PEDS [address] [place] [address] Christopher Wang MD [address] [place] [address] documented as of this encounter Visit Diagnoses Diagnosis Primary hypertension- Primary Unspecified essential hypertension Type 2 diabetes mellitus without complication, without long-term current use of insulin ([facility]) Vitamin B12 deficiency Other B-complex deficiencies documented in this encounter Additional Health Concerns Assessment Noted Time PHQ-9 Depression Total Score: 0 03/04/19 23 9:18 AM EST documented as of this encounter Care Teams Dinkey Engine Operator Relationship Specialty Start Date End Date Christopher Wang MD [address] [place] [address] PCP - General Internal Medicine 08/23/19 documented as of this encounter
--- OUTSIDE RECORDS SUMMARY | 2024-10-10 15:36 | XMS_ITS | Encounter Summary ---
Author Organization [employer] Address [address] [place] [address] [address] [place] [address] Care Team Providers Care Policy Analyst Name Role Phone Christopher Wang MD Primary Care Provider [phone] Reason for Visit * Reason Onset Date Comments Appointment 04/14/2022 Encounter Details Date Type Department Care Team (Late st Contact Info) Description 04/14/2022 Telephone [facility] AD[facility] [address] [place] [address] Ronal Andrade, DMD [address] [place] [address] Appointment Social History Tobacco Use Types Packs/Day [...] oral surgery prior to impression for partials. DR documented in this encounter Plan of Treatment Upcoming Encounters Date Type Department Care Team (Late st Contact Info) Description 11/07/2024 9:15 AM EDT Office Visit [facility] MED & PEDS [address] [place] [address] Christopher Wang MD [address] [place] [address] documented as of this encounter Visit Diagnoses Not on filedocumented in this encounter Additional Health Concerns Assessment Noted Time PHQ-9 Depression Total Score: 0 03/04/19 23 9:18 AM EST documented as of this encounter Care Teams Policy Analyst Relationship Specialty Start Date End Date Christopher Wang MD [address] [place] [address] PCP - General Internal Medicine 08/23/19 documented as of this encounter
--- OUTSIDE RECORDS SUMMARY | 2024-10-10 15:36 | XMS_ITS | Encounter Summary ---
Author Organization [employer] Address [address] [address] Care Team Providers Care Concreter Name Role Phone Christopher Wang MD Primary Care Provider [phone] Reason for Visit * Reason Onset Date Comments Referral 04/29/2024 Encounter Details Date Type Department Care Team (Late st Contact Info) Description 04/29/2024 Telephone [facility] MEDICINE [address] [place] [address] Christopher Wang MD [address] [place] [address] Referral Social History Tobacco Use Types Packs/Day [...] encounter Miscellaneous Notes * Telephone Encounter - Wing Ebony RN - 04/29/2024 9:45 AM EDT Tc to pt regarding ENT and audiology referral. Pt changed insurance from [facility] to [facility] Medicare. Advised pt to call insurance to see in they cover appointment with [facility] audiology where referral was sent.Also stated to pt to call [facility] audiology if insurance states they will cover to book an appt. Pt seen by Dr. Wang on 04/11/24, note stated ENT referral to be placed but no referral found in chart. Please advise on if an ENT referral will be written. Pt verbalized understanding and agreement with plan. * Telephone Encounter - Melida Manuel - 04/29/2024 9:04 AM EDT Tc from pt requesting referrals that stated they where supposed to be placed as provider notify pt for ENT & Audiology Specialist documented in this encounter Plan of Treatment Upcoming Encounters Date Type Department Care Team ([facility] st Contact Info) Description 11/07/2024 9:15 AM EDT Office Visit [facility] MED & PEDS [address] [place] [address] Christopher Wang MD [address] [place] [address] documented as of this encounter Visit Diagnoses Not on filedocumented in this encounter Additional Health Concerns Assessment Noted Time PHQ-9 Depression Total Score: 1 12/24/19 24 1:52 PM EST documented as of this encounter Care Teams Concreter Relationship Specialty Start Date End Date Christopher Wang MD [address] [place] [address] PCP - General Internal Medicine 08/23/19 documented as of this encounter
--- OUTSIDE RECORDS SUMMARY | 2024-10-10 15:37 | XMS_ITS | Encounter Summary ---
Author Organization [employer] Address [address] [place] [address] Care Team Providers Care Automotive Wholesale Parts Advisor Name Role Phone Christopher Wang MD Primary Care Provider [phone] Reason for Visit * Reason Onset Date Comments Med Refill 07/13/2024 Encounter Details Date Type Department Care Team ([facility] st Contact Info) Description 07/13/2024 Refill [facility] MED & PEDS [address] [place] [address] Christopher Wang MD [address] [place] [address] Type 2 diabetes mellitus without complication, without long-term current use of insulin ([facility]) Social History Tobacco Use Types Packs/Day Years [...] Upcoming Encounters Date Type Department Care Team ([facility] st Contact Info) Description 11/07/2024 9:15 AM EDT Office Visit [facility] MED & PEDS [address] [place] [address] Christopher Wang MD [address] [place] [address] documented as of this encounter Visit Diagnoses Diagnosis Type 2 diabetes mellitus without complication, without long-term current use of insulin ([facility]) documented in this encounter Additional Health Concerns Assessment Noted Time PHQ-9 Depression Total Score: 1 12/24/19 24 1:52 PM EST documented as of this encounter Care Teams [employer] Wholes[employer] Advisor Relationship Specialty Start Date End Date Christopher Wang MD [address] [place] [address] PCP - General Internal Medicine 08/23/19 documented as of this encounter
--- OUTSIDE RECORDS SUMMARY | 2024-10-10 15:37 | XMS_ITS | Encounter Summary ---
Author Organization [employer] Address [address] [place] [address] Care Team Providers Care Neck Pinner Name Role Phone Christopher Wang MD Primary Care Provider [phone] Reason for Visit * Reason Onset Date Comments Med Refill 10/22/2023 Encounter Details Date Type Department Care Team ([facility] st Contact Info) Description 10/22/2023 Telephone [facility] MEDICINE [address] [place] [address] Christopher Wang MD [address] [place] [address] Med Refill Social History Tobacco Use Types [...] 10 MG tablet To be sent to: [facility] [place] - [address] [facility] documented in this encounter Plan of Treatment Upcoming Encounters Date Type Department Care Team ([facility] st Contact Info) Description 11/07/2024 9:15 AM EDT Office Visit [facility] CHC MED & PEDS [address] [place] [address] Christopher aWng MD [address] [facility] [place] [address] documented as of this encounter Visit Diagnoses Not on filedocumented in this encounter Additional Health Concerns Assessment Noted Time PHQ-9 Depression Total Score: 0 03/04/19 23 9:18 AM EST documented as of this encounter Care Teams Neck Pinner Relationship Specialty Start Date End Date Christopher Wang MD [address] [place] [address] PCP - General Internal Medicine 08/23/19 documented as of this encounter"
--- OUTSIDE RECORDS SUMMARY | 2024-10-10 15:37 | XMS_ITS | Encounter Summary ---
Author Organization [facility] Address [address] [place] [address] Care Team Providers Care Insurance Claims Supervisor Name Role Phone Christopher Wang MD Primary Care Provider [phone] Encounter Details Date Type Department Care Team (Late st Contact Info) Description 06/28/2024 Lab Requisition [facility] - Main Lab [address] [place] [address] Steve Miner MD [address] [address] Nodular prostate without lower urinary [...] LAB CHEMISTRY METHOD 06/28/2024 2:10 PM EDT [facility] Blood Venous blood specimen / Unknown 06/28/2024 9:09 AM EDT 06/28/2024 12:51 PM EDT Narrative [facility] - 06/28/2024 2:10 PM EDT The Siemens Advia Centaur Chemiluminescent Immunoassay is used. Results obtained with different assay methods or kits cannot be used interchangeably. Results cannot be interpreted as absolute evidence of the presence or absence of malignant disease. us Steve Miner MD LAB BLOOD ORDERABLES Final Resul t [facility] [address] [place] [address], documented in this encounter Visit Diagnoses Diagnosis Nodular prostate without lower urinary tract symptoms documented in this encounter Care Teams Insurance Claims Supervisor Relationship Specialty Start Date End Date Christopher Wang MD [address] [place] [address] PCP - General 04/28/14 documented as of this encounter
--- OUTSIDE RECORDS SUMMARY | 2024-10-10 15:37 | XMS_ITS | Encounter Summary ---
Author Organization [employer] Address [address] [place] [id number] Care Team Providers Care Mica Miner Name Role Phone Christopher Wang MD Primary Care Provider [phone] Reason for Visit * Reason Comments Med Refill Encounter Details Date Type Department Care Team ([facility] st Contact Info) Description 10/07/2024 Refill [facility] MED & PEDS [address] [place], [place] [phone] Christopher Wang MD [address] [place] [address] Type 2 diabetes mellitus without complication, without long-term current use of insulin ([facility]) Social History Tobacco Use Types Packs/Day [...] Office Visit [facility] MED & PEDS [address] [place] [address] Christopher Wang MD [address] [place] [address] documented as of this encounter Visit Diagnoses Diagnosis Type 2 diabetes mellitus without complication, without long-term current use of insulin ([facility]) documented in this encounter Additional Health Concerns Assessment Noted Time PHQ-9 Depression Total Score: 10 025 3:14 PM EDT documented as of this encounter Care Teams Mica Miner Relationship Specialty Start Date End Date Christopher Wang MD [address] [place] [address] PCP - General Internal Medicine 08/23/19 documented as of this encounter
--- OUTSIDE RECORDS SUMMARY | 2024-10-10 15:37 | XMS_ITS | Clinical Summary ---
Author Organization [facility] Address [address] [place] [address] Phone Care Team Providers Care Linoleum Mechanic Name Role Phone Christopher Wang MD Primary Care Provider [phone] Allergies No known active allergies Medications acetaminophen [...] 1 Tablet by mouth at bedtime. Active meloxicam (MOBIC) 15 mg tablet Take 1 tablet (15 mg total) by mouth 1 (one) time each day. 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, CMS/HCC V28) (Primary Dx); Pain in toes of both feet; PAD (peripheral artery disease) (CMS/HCC V24); Difficulty walking; Dermatophytosis, nail; Achilles tendinitis of left lower extremity from Last 3 Months Immunizations Name Administration Dates Next Due Moderna [...] Concentration - - Weight 122 kg (268 lb 15.4 oz) 08/02/2024 8:01 A M EDT Height 185.4 cm (6' 0.99 ) 08/02/2024 8:01 AM ED T Body Mass Index 35.49 08/02/2024 8:01 AM EDT Plan of Treatment Health Maintenance Due Date Last Done Comments Diabetes: Annual Foot Exam 06/25/1967 Diabetes: Annual Retina Eye Exam 06/25/1967 RSV Immunization Adult Patients (1 - Risk 60-74 years 1-dose series) 2017 Colorectal Cancer Screening: Colonoscopy 03/13/2023 Falls Risk Assessment 03/13/2023 Social Influencers of Health Screening 03/13/2023 Hepatitis B Vaccines (2 of 3 - 19+ 3-dose series) 09/24/2023 08/27/2023 COVID-19 Vaccine ( season) 2023 04/18/2022, 01/15/2021, 05/16/2020, Additional history exists Depression Screening 02/17/2024 Diabetes: Annual Urine Albumin-Creatinine Ratio (uACR) 05/31/2024 Influenza Vaccine (#1) 2024 , 12/09/2021, 11/16/2021, Additional history exists Diabetes: Annual GFR (Glomerular Filtration Rate) 11/09/2024 11/10/2023 Hypertension/CHF/CAD Annual BMP Blood Test 11/09/2024 11/10/2023 Diabetes: Blood Sugar Control Test (HGBA1C) 12/24/2024 06/23/2024, 04/11/2024, 09/10/2022 Cholesterol Screening (Lipid Panel) 04/11/2029 04/11/2024, 02/03/2023 DTaP,Tdap,and Td Vaccines (3 - Td or Tdap) 06/25/2031 2021, 07/27/2014 Hepatitis C Screening Completed 2021 Pneumococcal Vaccine: 50+ Years Completed 08/27/2023, 02/06/2020 Zoster Vaccines Completed 04/11/2024, 01/14/2021 HIB Vaccines [...] age to complete this topic Meningococcal B Vaccine Aged Out No l onger eligible based on patient's age to complete this topic RSV Immunization Patients Under 20 months Aged Out No longer eligible based on patient's age to complete this topic Varicella Vaccines Aged Out No longer eligible based on patient's age to complete this topic Procedures Procedure Name Priority Date/Time Associated Diagnosis Comments ANNUAL BMP BLOOD TEST Routine 11/10/2023 LIPID PANEL Routine 02/03/2023 HEMOGLOBIN A1C Routine 09/10/2022 HEPATITIS C SCREENING Routine 2021 from Last 3 Months or Most Recently Relevant to Health Maintenance Results * Annual BMP Blood Test (11/10/2023) Pathologist [facility] Annual BMP Blood Test Abstracted Result [facility] Provider HEALTH MAINTENANCE Final Result * Lipid panel (02/03/2023) [facility] Triglycerides 0 mg/dL Comment:No interpretation Cholesterol 0 mg/dL Comment:No interpretation HDL 0 mg/dL Comment:No interpretation LDL Cholesterol 0 mg/dL Comment:No interpretation Blood Venous blood specimen / Unknown Historical Provider LAB BLOOD ORDERABLES Elizabeth l Result * Hemoglobin A1c (09/10/2022) [facility] Hemoglobin A1C 0.0 % Comment:No interpretation Blood Venous blood specimen / Unknown [facility] Provider LAB BLOOD ORDERABLES Elizabeth l Result * Hepatitis C Screening (2021) Hepatitis C Screening Abstracted us Historical Provider HEALTH MAINTENANCE Final Result from Last 3 Months or Most Recently Relevant to Health Maintenance Insurance MEDICAID - [place] [facility] Care Teams Linoleum Mechanic Relationship Specialty Start Date End Date Christopher Wang MD [address] [place] [address] PCP - General 04/28/14
--- OUTSIDE RECORDS SUMMARY | 2024-10-10 15:37 | XMS_ITS | Encounter Summary ---
Author Organization [employer] Address [address] [place] [address] Care Team Providers Care Painter Spray Name Role Phone Christopher Wang MD Primary Care Provider [phone] Encounter Details Date Type Department Care Team (Late st Contact Info) Description 10/14/2022 Abstract [facility] MED & PEDS [address] [place] [address] Jordyn Ham [place] Social History Tobacco Use [...] Description 11/07/2024 9:15 AM EDT Office Visit [facility] MED & PEDS [address] [place] [address] Christopher Wang MD [address] [place] [address] documented as of this encounter Visit Diagnoses Not on filedocumented in this encounter Additional Health Concerns Assessment Noted Time PHQ-9 Depression Total Score: 0 03/04/19 23 9:18 AM EST documented as of this encounter Care Teams Painter Spray Relationship Specialty Start Date End Date Christopher Wang MD [address] [place] [address] PCP - General Internal Medicine 08/23/19 documented as of this encounter
--- OUTSIDE RECORDS SUMMARY | 2024-10-10 15:37 | XMS_ITS | Encounter Summary ---
Author Organization [employer] Address [address] [facility] 7 [place] [address] Care Team Providers Care Handbag Operator Name Role Phone Christopher Wang MD Primary Care Provider [phone] Encounter Details Date Type Department Care Team ([facility] st Contact Info) Description 09/15/2024 Results Follow-Up [facility] MEDICINE [address] [place] [address] Ifrah Christianson MD [address] [place] [address] POCT urinalysis dipstick manually resulted, POCT COVID-19 Ag Raphael ID NOW, Culture, Urine, Routine, Additional followed-up results: 4 Social History Tobacco Use Types Packs/Day Years [...] as of this encounter Miscellaneous Notes * Result Encounter Note - Ifrah Christianson MD - 10/06/2024 5:28 PM EDT Labs on 10/06 show high ESR with otherwise mildly elevated WBC and anemia. I spoke with patient today and tells me that he was discharged from the hospital with myasthenia gravis flare. HD summary reviewed and he was discharged on prednisone which may account for leukocytosis and high ESR, he did not complain any urinary symptoms, diarrhea, sore throat, fever, chills and was feeling better on the prednisone and energy gordillo. He saw neurologist today and will see PCP next week. He is advised to call back as needed fever, chills, URI, GI, UTI symptoms or go to ED immediately. Sent to PCP as FYI for next week's appointment * Result Encounter Note - Ifrah Christianson MD - 09/15/2024 10:09 AM EDT Urine culture on 08/29/2024 showed E. coli resistant to Cipro that was sent at the time of the appointment. Patient has subsequently seen in the ED with a flare of myasthenia gravis and was apt on themedication. I called patient today, IDed and verified with date of and complete name, he tells me he still has some incontinence, weakness and pelvic pain, no fever or chills, we discussed about UTI as a trigger for a MG flare and he agreed to be treated with Macrobid x 7 days and he will follow-up with neurology next week. I will send to PCP as an FYI documented in this encounter Plan of Treatment Upcoming Encounters Date Type Department Care Team (Late st Contact Info) Description 11/07/2024 9:15 AM EDT Office Visit [facility] MED & PEDS [address] [place] [address] Christopher Wang MD [address] [place] [address] documented as of this encounter Visit Diagnoses Diagnosis Acute cystitis with hematuria- Primary documented in this encounter Additional Health Concerns Assessment Noted Time PHQ-9 Depression Total Score: 1 12/24/19 24 1:52 PM EST documented as of this encounter Care Teams Handbag Operator Relationship Specialty Start Date End Date Christopher Wang MD [address] [place] [address] PCP - General Internal Medicine 08/23/19 documented as of this encounter
--- OUTSIDE RECORDS SUMMARY | 2024-10-10 15:37 | XMS_ITS | Patient Health Record ---
Author Organization [facility] Address [address] [place] [id number] Care Team Providers Care Director Name Role Phone Christopher Wang M.D. Primary Care Provider Un available Rubén Bruce Jr Unavailable Allergies No Known Allergies Reason For Referral No Information Medications Medication SIG (Take, Route, Frequency, Duration) Notes [...] 800 MG Oral for 30 Active pyRIDostigmine [place] 60 MG TAKE ONE TABLET THREE TIMES [...] MORNING AND EVENING Oral for 30 Active Immunizations Vaccine Route Administration Date Status Comme nts Influenza Unknown 11/16/2021 Administered Influenza Unknown 12/23/2023 Administered Social History Tobacco Use: Social History Observation Description Date Details (start date - stop date) Never Smoker NA - NA Tobacco Use/Smoking Question Answer Notes Patient is a nonsmoker Alcohol Screen Question Answer Notes Did you have a drink containing alcohol in the p ast year? No Points 0 Interpretation Negative Problems Problem Type SNOMED Code ICD Code Onset Dates Problem Status W/U Status Risk Notes Problem Gastro-esophage al reflux disease without esophagitis (653539781) Gastro-esophageal reflux disease without esophagitis (K21.9) Active confirmed Problem 185706275 Periumbilical pa in (R10.33) Active confirmed Problem 478921485 Gastroesophageal reflux disease without esophagitis (K21.9) Active confirmed Problem 819669220 Abnormal barium swallow (R93.3) Active confirmed Problem 632794971 LUQ pain (R10.12) Active confirmed Problem 411788013 Gas bloat syndro me (K92.89) Active confirmed Problem 217260244 Allergy, initial encounter (T78.40XA) Active confirmed Vital Signs Temperature 97.7 degrees Fahrenheit 01/06/2024 Blood pressure diastolic 00 mm Hg 01/06/2024 Height 73 in 01/06/2024 Blood pressure systolic 00 mm Hg 01/06/2024 Weight 296 lbs 01/06/2024 BMI 39.05 kg/m2 01/06/2024 Encounters Encounter Location Date Provider Diagnosis [facility] [address] [place] [phone] 01/06/2024 Rubén Bruce Jr Gastroesophageal reflux disease without esophagitis K21.9 ; Abnormal barium swallow R93.3 and Allergy, initial encounter T78.40XA [facility] [address] [place] [phone] 09/14/2024 Rubén Bruce Jr Assessments Encounter Date Diagnosis (ICD Code) Assessment Notes Treatment Notes Treatment Clinical Notes Section Notes 01/06/2024 Gastroesophageal reflux disease without esophagitis (ICD-10 - K21.9) Digestive diseases material was printed At this time, he is doing well with respect to his reflux. We discussed diet, lifestyle modifications, and weight management regarding the treatment of reflux. We discussed cough and allergies. We recommended referral to [facility]. He was given information regarding this. We discussed use of metoclopramide. We discussed multiple side effects and the general lack of efficacy of this medication, especially with long-term use, and we recommended tapering and possibly discontinuing if possible. Today's visit was 30 minutes. 01/06/2024 Abnormal barium swallow (ICD-10 - R93.3) At this time, he is doing well with respect to his reflux. We discussed diet, lifestyle modifications, and weight management regarding the treatment of reflux. We discussed cough and allergies. We recommended referral to [facility]. He was given information regarding this. We discussed use of metoclopramide. We discussed multiple side effects and the general lack of efficacy of this medication, especially with long-term use, and we recommended tapering and possibly discontinuing if possible. Today's visit was 30 minutes. 01/06/2024 Allergy, initial encounter (ICD-10 - T78.40XA) At this time, he is doing well with respect to his reflux. We discussed diet, lifestyle modifications, and weight management regarding the treatment of reflux. We discussed cough and allergies. We recommended referral to [facility]. He was given information regarding this. We discussed use of metoclopramide. We discussed multiple side effects and the general lack of efficacy of this medication, especially with long-term use, and we recommended tapering and possibly discontinuing if possible. Today's visit was 30 minutes. Plan Of Treatment Pending Test Test Name Order Date LIVER PROFILE 11/28/2021 LIPASE 11/28/2021 CBC w/o DIFF 11/28/2021 IgA 11/28/2021 TRANSGLUTAMINASE AB IGA 11/28/2021 US ABD 11/28/2021 TSH REFLEX FREE T4 11/28/2021 Future Test Test Name Order Date UPPER GI ENDOSCOPY BALLOOON DILATION OF ESOPH 05/07/2023 Next Appt Details Provider Name:Rubén topete , 01/04/2025 10:40:00 AM, [address] [place] [address], [address], [place], [address], Insurance Providers Payer Name Payer Address Payer Phone Subscriber Number Group Number Insured Name Patient Relationship to Insured Coverage Start Date Coverage End Date [facility] [address] [place] [address] [id number] ANAIS JAEGER Self - patient is the insured Medical (General) History Medical History History ICD Code Diabetes mellitus2 Hypertension Neuropathy Myasthenia gravis Edema Gastroesophageal reflux dise ase, EGD/, no Lanza's esophagus, balloon dilation of the EG junction for symptomatic dysphagia to 20 mm Colonoscopy 2020, diverticul osis, hemorrhoids, 2 mm tubular adenoma, 5 year recall. Surgical History Surgery Date(Month/Year) partial goiter knee left C4-5 fusion
--- OUTSIDE RECORDS SUMMARY | 2024-10-10 15:37 | XMS_ITS | Encounter Summary ---
Author Organization [employer] Address [address] [place] [address] 7 [place] [address] Care Team Providers Care Helmet Hat Brim Cutter Name Role Phone Christopher Wang MD Primary Care Provider [phone] Encounter Details Date Type Department Care Team ([facility] st Contact Info) Description 10/23/2023 Orders Only [facility] MED & PEDS [address] [place], [place] [phone] Christopher Wang MD [address] [place] [address] Bloating symptom Social History Tobacco Use Types [...] Description 11/07/2024 9:15 AM EDT Office Visit [facility] MED & PEDS [address] [place] [address] Christopher Wang MD [address] [place] [address] documented as of this encounter Visit Diagnoses Diagnosis Bloating symptom Flatulence, eructation, and gas pain documented in this encounter Additional Health Concerns Assessment Noted Time PHQ-9 Depression Total Score: 0 03/04/19 23 9:18 AM EST documented as of this encounter Care Teams Helmet Hat Brim Cutter Relationship Specialty Start Date End Date Christopher Wang MD [address] [place] [address] PCP - General Internal Medicine 08/23/19 documented as of this encounter
--- OUTSIDE RECORDS SUMMARY | 2024-10-10 15:37 | XMS_ITS | Encounter Summary ---
Author Organization [employer] Address [address] [place] [address] [address] [place] [address] Care Team Providers Care Wood Boring Machine Operator Name Role Phone Christopher Wang MD Primary Care Provider [phone] Encounter Details Date Type Department Care Team ([facility] st Contact Info) Description 07/12/2024 Orders Only [facility] MED & PEDS [address] [place], [place] [phone] Christopher Wang MD [address] [place] [address] Social History Tobacco Use Types Packs/Day Years [...] Description 11/07/2024 9:15 AM EDT Office Visit [facility] MED & PEDS [address] [place] [address] Christopher Wang MD [address] [place] [address] documented as of this encounter Visit Diagnoses Not on filedocumented in this encounter Additional Health Concerns Assessment Noted Time PHQ-9 Depression Total Score: 1 12/24/19 24 1:52 PM EST documented as of this encounter Care Teams Wood Boring Machine Operator Relationship Specialty Start Date End Date Christopher Wang MD [address] [place] [address] PCP - General Internal Medicine 08/23/19 documented as of this encounter
--- OUTSIDE RECORDS SUMMARY | 2024-10-10 15:37 | XMS_ITS | Encounter Summary ---
Author Organization [employer] Address [address] [facility] 7 [place] [address] Care Team Providers Care Manufacturers Service Representative Name Role Phone Crhistopher Wang MD Primary Care Provider [phone] Encounter Details Date Type Department Care Team ([facility] st Contact Info) Description 06/10/2023 Orders Only [facility] CH[facility] MED & PEDS [address] [place], [place] [phone] Christopher Wang MD [address] [place] [address] Social History Tobacco Use Types Packs/Day Years [...] Description 11/07/2024 9:15 AM EDT Office Visit [facility] MED & PEDS [address] [place] [address] Christopher Wang MD [address] [place] [address] documented as of this encounter Visit Diagnoses Not on filedocumented in this encounter Additional Health Concerns Assessment Noted Time PHQ-9 Depression Total Score: 0 03/04/19 23 9:18 AM EST documented as of this encounter Care Teams Manufacturers Service Representative Relationship Specialty Start Date End Date Christopher Wang MD [address] [place] [address] PCP - General Internal Medicine 08/23/19 documented as of this encounter
--- OUTSIDE RECORDS SUMMARY | 2024-10-10 15:37 | XMS_ITS | Encounter Summary ---
Author Organization [employer] Address [address] [place] [address] 7 [place] [address] Care Team Providers Care Solicitor Patent Name Role Phone Christopher Wang MD Primary Care Provider [phone] Encounter Details Date Type Department Care Team ([facility] st Contact Info) Description 02/03/2023 Orders Only [facility] MED & PEDS [address] [place], [place] [phone] Christopher Wang MD [address] [place] [address] Acquired hypothyroidism (Primary Dx); Type 2 diabetes mellitus without complication, without long-term current use of insulin ([facility]) Social History Tobacco Use Types Packs/Day [...] Description 11/07/2024 9:15 AM EDT Office Visit [facility] P[facility] [address] [place] [address] Christopher Wang MD [address] [place], [place] [phone] documented as of this encounter Procedures Procedure [...] 9:00 AM EST) Creatinine, Urine 176.37 mg/dL [facility] Microalbumin Urine 11.0 mg/L [facility] Microalbum Creatinine Ratio Ur 6.2 <30 ug/mg cr [facility] Comment:Albumin/Creatinine R atio Reference Ranges: Normal: < 30 ug/mg creatinine Microalbuminuria: 30 - 300 ug/mg creatinineClinical Albuminuria: > 300 ug/mg creatinine Urine (Urine, Random) 02/03/2023 9:00 AM EST 02/03/2023 2:19 PM EST us Christopher Wang MD LAB URINE ORDERABLES Final Result Performing Organization Address [facility]/ZIP Co de Phone Number [facility] [address] [place] [phone] * TSH W/Reflex to FT4 (02/03/2023 8:57 AM EST) Pathologist [facility] TSH reflex Free T4 1.22 0.32 - 4.0 uIU/mL [facility] Blood Venous blood specimen / Unknown 02/03/2023 8:57 AM EST 02/03/2023 2:20 PM EST us Christopher Wang MD LAB BLOOD ORDERABLES Final Result Performing Organization Address [facility]/ZIP Co de Phone Number [facility] [address] [place] [phone] * Lipid Panel, Standard (02/03/2023 8:57 AM EST) Triglycerides 89 <150 mg/dL [facility] Comment:Desirable Triglyceri de: less than 150 mg/dLBorderline High Triglyceride 150-199 mg/dLHigh Triglyceride: 200-499 mg/dLVery High Triglyceride: greater than or equal to 5OO mg/dL Cholesterol 118 <200 mg/dL [facility] Comment:Desirable Cholestero l: less than 200 mg/dLBorderline High Cholesterol: 200-239 mg/dLHigh Cholesterol: greater than 239 mg/dL LDL Cholesterol Calculated 51 <100 mg/dL [facility] Comment:Desirable LDL: less than 100 mg/dLNear Optimal/Above Optimal LDL: 110- 129 mg/dLBorderline High LDL: 130-159 mg/dLHigh LDL: 160-189 mg/dLVery High LDL: greater than or equal to 190 mg/dL HDL Cholesterol 50 >40 mg/dL [facility] Comment:Desirable HDL: great er than 40 mg/dL Note: This HDL assay may give artificially low results in patients with liver disease. Blood Venous blood specimen / Unknown 02/03/2023 8:57 AM EST 02/03/2023 2:20 PM EST us Christopher Wang MD LAB BLOOD ORDERABLES Final Result [facility] [address] [place] [phone] * Comprehensive Metabolic Panel (02/03/2023 8:57 AM EST) Sodium 142 135 - 145 mmol/L [facility] Potassium 3.9 3.3 - 5.1 mmol/L [facility] Chloride 108 96 - 108 mmol/L [facility] Carbon Dioxide 25 22 - 29 mmol/L [facility] Anion Gap 13 12 - 20 [facility] Urea Nitrogen (BUN) 13 9 - 16 mg/dL [facility] Creatinine, Serum 0.75 0.5 - 1.4 mg/dL [facility] Estimated Glomerular Filt Rate >60 [facility] Comment:NOTE: For -Am erican individuals, multiply the result by 1.210.Chronic Kidney Disease: Estimated GFR < 60 mL/min/[id number] Kidney Disease: Estimated GFR < 15 mL/min/1.73m2 Glucose 93 60 - 115 mg/dL [facility] Calcium 9.2 8.4 - 10.2 mg/dL [facility] Bilirubin, Total 0.4 0.0 - 1.0 mg/dL [facility] Aspartate Amino Transferase 19 5 - 37 U/L [facility] Alanine Aminotransferase 15 0 - 40 U/L [facility] Total Protein 7.0 6.5 - 8.0 g/dL [facility] Albumin Level 4.0 3.5 - 5.0 g/dL [facility] Alkaline Phosphatase 77 39 - 117 U/L [facility] Blood Venous blood specimen / Unknown 02/03/2023 8:57 AM EST 02/03/2023 2:20 PM EST us Christopher Wang MD LAB BLOOD ORDERABLES Final Result [facility] [address] [place] [phone] documented in this encounter Visit Diagnoses Diagnosis Acquired hypothyroidism- Primary Unspecified hypothyroidism Type 2 diabetes mellitus without complication, without long-term current use of insulin ([facility]) documented in this encounter Additional Health Concerns Assessment Noted Time PHQ-9 Depression Total Score: 0 03/04/19 23 9:18 AM EST documented as of this encounter Care Teams Solicitor Patent Relationship Specialty Start Date End Date Christopher Wang MD [address] [place] [phone] PCP - General Internal Medicine 08/23/19 documented as of this encounter
--- OUTSIDE RECORDS SUMMARY | 2024-10-10 15:37 | XMS_ITS | Encounter Summary ---
Author Organization [employer] Address [address] [place] [address] [address] [place] [address] Care Team Providers Care High School Band Director Name Role Phone Christopher Wang MD Primary Care Provider [phone] Reason for Referral * Consultation (Routine) - Closed Specialty Diagnoses / Procedures Referred By Contac t Referred To Contact Audiology Diagnoses Subjective hearing loss Terri Medellin MD [address] [place] [address] Phone: tel: fax: [facility] [address] Floor [place], [place] Phone: tel: fax: Referral ID Status Reason Start Date Expiration Date V isits Requested Visits Authorized [id number] Closed Specialty Services Required 11/12/2023 11/11/2024 1 1 Encounter Details Date Type Department Care Team (Late st Contact Info) Description 11/12/2023 Orders Only [facility] MED & PEDS [address] [place], [place] [phone] Terri Medellin MD [address] [place], [place] [phone] Subjective hearing loss (Primary Dx) Social History [...] Upcoming Encounters Date Type Department Care Team ([facility] st Contact Info) Description 11/07/2024 9:15 AM EDT Office Visit [facility] [address] [place] [address] Christopher Wang MD [address] [place] [address] Scheduled Referrals Name Type Priority Associated Diagnoses Orde r Schedule Referral to Audiology Outpatient Referral Routine Subjective hearing loss Expected: 11/12/2023 (Approximate), Expires: 11/11/2024 documented as of this encounter Visit Diagnoses Diagnosis Subjective hearing loss- Primary documented in this encounter Additional Health Concerns Assessment Noted Time PHQ-9 Depression Total Score: 0 03/04/19 23 9:18 AM EST documented as of this encounter Care Teams High School Band Director Relationship Specialty Start Date End Date Christopher Wang MD [address] [place] [phone] PCP - General Internal Medicine 08/23/19 documented as of this encounter
--- OUTSIDE RECORDS SUMMARY | 2024-10-10 15:37 | XMS_ITS | Encounter Summary ---
Author Organization [email or web address] Address [address] [facility] [address] [place] [address] Care Team Providers Care Interventional Pain Physician Name Role Phone Christopher Wang MD Primary Care Provider [phone] Encounter Details Date Type Department Care Team (Latest Contact Info) Description 10/10/2024 Travel Social History Tobacco Use Types Packs/Day [...] is your housing situation today? I have anandjaylin [place] 12/17/[address] you [...] [facility] [address] [place] [address] Christopher Wang MD [address] [place] [address] documented as of this encounter Visit Diagnoses Not on filedocumented in this encounter Additional Health Concerns Assessment Noted Time PHQ-9 Depression Total Score: 10 025 3:14 PM EDT documented as of this encounter Care Teams Interventional Pain Physician Relationship Specialty Start Date End Date Christopher Wang MD [address] [place] [address] PCP - General Internal Medicine 08/23/19 documented as of this encounter
--- OUTSIDE RECORDS SUMMARY | 2024-10-10 15:37 | XMS_ITS | Encounter Summary ---
Author Organization [employer] Address [address] [place] [address] Care Team Providers Care Computer Patternmaker Name Role Phone Christopher Wang MD Primary Care Provider [phone] Reason for Visit * Reason Onset Date Comments Referral 12/04/2023 Encounter Details Date Type Department Care Team ([facility] st Contact Info) Description 12/04/2023 Telephone [facility] MED & PEDS [address] [place], [place] [phone] Christopher Wang MD [address] [place] [address] Referral Social History Tobacco Use Types Packs/Day [...] AM EDT documented as of this encounter Functional Status * Audit-C Score Answer Date of Assessment Author 0 12/24/2023 1:44 PM Christopher Collazo MD * Question Answer Date of Assessment Author Q1: How often do you have a drink containing alcohol? Never 12/24/2023 1:44 PM Danna Collazo MD Q2: How many drinks containing alcohol do you have on a typical day when you are drinking? Patient does not drink 12/24/2023 1:44 PM Christopher Collazo MD Q3: How often do you have six or more drinks on one occasion? Never 12/24/2023 1:44 PM Danna Collazo MD * Over the past 2 weeks, how often have you been bothered by any of the following problems? Question Answer Date of Assessment Author Patient Health Questionnaire-2 Score 2 09/2024 3:14 PM EDT Jordyn Ham [place] * Little interest or pleasure in doing things Answer Date of Assessment Author More than half the days 09/23/2024 3:14 PM EDT Jordyn Jane MA * Feeling down, depressed, or hopeless Answer Date of Assessment Author Not at all 09/23/2024 3:14 PM EDT Twan Ham [place] * Trouble falling or staying asleep, or sleeping too much Answer Date of Assessment Author Not at all 09/23/2024 3:14 PM EDT Twan Ham MA * Feeling tired or having little energy Answer Date of Assessment Author More than half the days 09/23/2024 3:14 PM EDT Jordyn Jane MA * Poor appetite or overeating Answer Date of Assessment Author Several days 09/23/2024 3:14 PM EDT Twan Ham MA * Feeling bad about yourself - or that you are a failure or have let yourself or your family down Answer Date of Assessment Author Nearly every day 09/23/2024 3:14 PM EDT Karen Ham MA * Trouble concentrating on things, such as reading the newspaper or watching television Answer Date of Assessment Author More than half the days 09/23/2024 3:14 PM [employer] Jordyn Jane MA * Moving or speaking so slowly that other people could have noticed? Or the opposite - being so fidgety or restless that you have been moving around a lot more than usual. Answer Date of Assessment Author Not at all 09/23/2024 3:14 PM [employer] Twan Ham MA * Thoughts that you would be better off or hurting yourself in some way Answer Date of Assessment Author Not at all 09/23/2024 3:14 PM EDT Twan Ham MA * Patient Health Questionnaire-9 Score Answer Date of Assessment Author 10 09/23/2024 3:14 PM [employer] Twan Ham MA * How difficult have these problems made it for you to do your work, take care of things at home, or get along with other people? Answer Date of Assessment Author Not difficult at all 09/23/2024 3:14 PM EDT Jordyn Garduno MA documented as of this encounter Miscellaneous Notes * Telephone Encounter - Jeremiah Sainz - 12/14/2023 9:50 AM EDT Tc from pt requesting a call back in regards to referral for audiology, pt stated they contacted number on referral letter however states they have not had any responses, pt stated during last appt they discussed with PCP. Please contact at [phone] * Telephone Encounter - Ainsley Laird - 12/04/2023 11:00 AM EDT Tc from pt requesting a different location for audiology referral. Pt stated he called [facility] and had a hard time. Pt is requesting to be seen in a facility in [place] as discussed duringlast office visit No further details provided. Contact pt at [phone] documented in this encounter Plan of Treatment Upcoming Encounters Date Type Department Care Team (Late st Contact Info) Description 11/07/2024 9:15 AM EDT Office Visit [facility] MED & PEDS [address] [place] [address] Christopher Wang MD [address] [place] [address] documented as of this encounter Visit Diagnoses Not on filedocumented in this encounter Additional Health Concerns Assessment Noted Time PHQ-9 Depression Total Score: 0 03/04/19 23 9:18 AM EST documented as of this encounter Care Teams Computer Patternmaker Relationship Specialty Start Date End Date Christopher Wang MD [address] [place] [address] PCP - General Internal Medicine 08/23/19 documented as of this encounter
--- OUTSIDE RECORDS SUMMARY | 2024-10-10 15:37 | XMS_ITS | Encounter Summary ---
Author Organization [employer] Address [address] [place] [address] Care Team Providers Care Malt Roaster Name Role Phone Christopher Wang MD Primary Care Provider [phone] Reason for Visit * Reason Comments Med Refill Encounter Details Date Type Department Care Team ([facility] st Contact Info) Description 11/26/2023 Refill [facility] MED & PEDS [address] [place], [place] [phone] Christopher Wang MD [address] [place] [address] Bloating symptom Social History Tobacco Use Types [...] Description 11/07/2024 9:15 AM EDT Office Visit [facility] MED & PEDS [address] [place] [address] Christopher Wang MD [address] [place] [address] documented as of this encounter Visit Diagnoses Diagnosis Bloating symptom Flatulence, eructation, and gas pain documented in this encounter Additional Health Concerns Assessment Noted Time PHQ-9 Depression Total Score: 0 03/04/19 23 9:18 AM EST documented as of this encounter Care Teams Malt Roaster Relationship Specialty Start Date End Date Christopher Wang MD [address] [place] [address] PCP - General Internal Medicine 08/23/19 documented as of this encounter
--- OUTSIDE RECORDS SUMMARY | 2024-10-10 15:37 | XMS_ITS | Encounter Summary ---
Author Organization [employer] Address [address] [address] Care Team Providers Care Switchbox Assembler Name Role Phone Christopher Wnag MD Primary Care Provider [phone] Reason for Visit * Reason Onset Date Comments Hospital Follow-up 10/03/2024 Encounter Details Date Type Department Care Team ([facility] st Contact Info) Description 10/03/2024 Telephone [facility] [address] [place] [address] Christopher Wang MD [address] [place] [address] Hospital Follow-up Social History Tobacco Use Types Packs/Day Years [...] encounter Miscellaneous Notes * Telephone Encounter - Isauro Orlando - 10/03/2024 9:46 AM EDT Tc from pt requesting a HDF appt. Hospital: [facility] Date of admission: 09/24/24 Discharge date: 10/02/24 Reason: unable to swallow *Send message to [place] Clinical Care Coordinators documented in this encounter Plan of Treatment Upcoming Encounters Date Type Department Care Team ([facility] st Contact Info) Description 11/07/2024 9:15 AM EDT Office Visit [facility] CH[facility] MED & PEDS [address] [place] [address] Christopher Wang MD [address] [place] [address] documented as of this encounter Visit Diagnoses Not on filedocumented in this encounter Additional Health Concerns Assessment Noted Time PHQ-9 Depression Total Score: 10 025 3:14 PM EDT documented as of this encounter Care Teams Switchbox Assembler Relationship Specialty Start Date End Date Christopher Wang MD [address] [place] [address] PCP - General Internal Medicine 08/23/19 documented as of this encounter
--- OUTSIDE RECORDS SUMMARY | 2024-10-10 15:37 | XMS_ITS | Encounter Summary ---
Author Organization [employer] Address [address] [place] [address] Care Team Providers Care Immigration Paralegal Name Role Phone Christopher Wang MD Primary Care Provider [phone] Reason for Visit * Reason Onset Date Comments Results 10/06/2024 Encounter Details Date Type Department Care Team ([facility] st Contact Info) Description 10/06/2024 Telephone [facility] MED & PEDS [address] [place], [place] [phone] Christopher Wang MD [address] [place] [address] Results Social History Tobacco Use Types Packs/Day Years [...] encounter Miscellaneous Notes * Telephone Encounter - Hortencia León RN - 10/06/2024 4:19 PM EDT Message to informing of H&H dropping in the past two weeks. No new orders at this moment documented in this encounter Plan of Treatment Upcoming Encounters Date Type Department Care Team (Late st Contact Info) Description 11/07/2024 9:15 AM EDT Office Visit [facility] MED & PEDS [address] [place] [address] Christopher Wang MD [address] [place] [address] documented as of this encounter Visit Diagnoses Not on filedocumented in this encounter Additional Health Concerns Assessment Noted Time PHQ-9 Depression Total Score: 10 025 3:14 PM EDT documented as of this encounter Care Teams Immigration Paralegal Relationship Specialty Start Date End Date Christopher Wang MD [address] [place] [address] PCP - General Internal Medicine 08/23/19 documented as of this encounter
--- OUTSIDE RECORDS SUMMARY | 2024-10-10 15:37 | XMS_ITS | Clinical Summary ---
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 022 Active Simbrinza 1-0.2 % suspension PLACE ONE DROP IN EACH EYE TWICE DAILY Active pyridostigmine (Mestinon) 60 MG tablet Take 1 tablet by mouth in the morning and 1 tablet at noon and 1 tablet in the evening. 022 Active senna (Senokot) 8.6 MG tablet TAKE ONE TABLET BY MOUTH AT BEDTIME NEEDED FOR CONSTIPATION Active Lancets Misc. miscIndications:Ty pe 2 diabetes mellitus without complication, without long-term current use of insulin ([facility]) To use 2 times a day 100 each 11 023 Active Blood Glucose Monitoring Suppl (ONE TOUCH ULTRA 2) w/Device kit Use to check blood sugar TID 023 Active atorvastatin (Lipitor) 40 MG tablet Take 40 mg by mouth. 023 Active Alcohol Swabs (SM Alcohol Prep) 70 % pads USE EVERY DAY 100 each 3 024 Active aspirin (Aspirin Low Dose) 81 MG chewable tabletIndications: Essential hypertension CHEW ONE TABLET EVERY MORNING 90 tablet 3 024 Active Continuous Glucose Cardboard Cutter (FreeStyle Dee Dee 2 [place]) deviceIndications: Type 2 diabetes mellitus without complication, without long-term current use of insulin ([facility]) Scan sensor every 8 hours 1 each Active Continuous Glucose Sensor (FreeStyle Dee Dee 2 Sensor) miscIndications:Ty pe 2 diabetes mellitus without complication, without long-term current use of insulin ([facility]) Apply 1 sensor every 14 days 2 each 11 Active glucose blood test stripIndications:T ype 2 diabetes mellitus without complication, without long-term current use of insulin ([facility]) To use once a day 100 each 12 025 2025 Active irbesartan (Avapro) 75 MG tablet TAKE ONE TABLET EVERY MORNING 90 tablet Active famotidine (Pepcid) 20 MG tablet TAKE ONE TABLET TWICE DAILY IN THE MORNING AND AT BEDTIME 60 tablet 11 Active GAS RELIEF 125 MG capsule TAKE ONE CAPSULE THREE TIME DAILY IN THE MORNING, AT NOON, AND IN THE EVENING AFTER MEALS 90 capsule 5 Active lidocaine (LMX 4) 4 % creamIndications:P rimary osteoarthritis of both knees Apply topically if needed in the morning, at noon, in the evening, and at bedtime for mild pain. 28 g 2 025 2025 Active hydroCHLOROthiazid e (Microzide) 12.5 MG capsuleIndications :Primary hypertension TAKE ONE CAPSULE EVERY MORNING 30 capsule 3 025 Active betamethasone valerate (Valisone) 0.1 % ointmentIndication s:Papular lichenification Apply topically if needed in the morning and at bedtime (dryness). 45 g 2 Active Calcium Carb-Cholecalcifer ol 600-10 MG-MCG tablet TAKE ONE TABLET IN THE MORNING AND EVENING 180 tablet 3 Active Diclofenac Sodium (Voltaren) 1 % gel Use topical BID 100 g 3 Active omeprazole (PriLOSEC) [address] capsuleIndications :Gastro-esophageal reflux disease without esophagitis TAKE TWO CAPSULES EVERY MORNING 60 capsule 11 Active Additional Information Patient not taking.Reported on 09/06/2024 gabapentin (Neurontin) 800 MG tabletIndications: Peripheral nerve disease TAKE ONE TABLET THREE TIME DAILY IN THE MORNING, AT NOON, AND IN THE EVENING 90 tablet 5 Active cyanocobalamin (Vitamin B-12) 1000 MCG tabletIndications: Vitamin B12 deficiency TAKE ONE TABLET EVERY MORNING 90 tablet 1 Active cholecalciferol (Vitamin D-3) 25 MCG tablet TAKE ONE TABLET DAILY AT NOON 90 tablet Active metFORMIN XR (Glucophage-XR) 500 MG 24 hr tabletIndications: Type 2 diabetes mellitus without complication, without long-term current use of insulin ([facility]) TAKE ONE TABLET EVERY EVENING 90 tablet 1 Active latanoprost (Xalatan) 0.005 % ophthalmic solution Administer 1 drop into both eyes at bedtime. Active Vitamins-Lipotropi cs (B Complex Formula 1, Lipotrop,) tablet Take 1 tablet by mouth in the morning. Active predniSONE (Deltasone) 10 MG tablet Take 1 tablet by mouth 2 times daily. 2024 Active meloxicam (Mobic) 15 MG tablet Take 1 tablet by mouth Once per day. Active carteolol (Ocupress) 1 % ophthalmic solution Insert 1 drop into both eyes twice daily 2024 Discontinued(M ed list cleanup (will not trigger notification to Pharmacy)) dicyclomine (Bentyl) 20 MG tablet TAKE ONE TABLET TWO TO FOUR TIMES DAILY 2024 Discontinued(M ed list cleanup (will not trigger notification to Pharmacy)) irbesartan-hydroCH LOROthiazide (Avalide) 150-12.5 MG tablet Take 1 tablet by mouth 1 (one) time each day. 2024 Discontinued(D uplicate order (will not trigger notification to Pharmacy)) naproxen (Naprosyn) 500 MG tablet Take 500 mg by mouth if needed in the morning and at bedtime. Take 500 mg by mouth if needed in the morning and at bedtime. 022 2024 Discontinued(M ed list cleanup (will not trigger notification to Pharmacy)) simvastatin (Zocor) 40 MG tablet TAKE ONE TABLET EVERY EVENING 2024 Discontinued(M ed list cleanup (will not trigger notification to Pharmacy)) isosorbide mononitrate ER (Imdur) 30 MG 24 hr tablet Take 30 mg by mouth in the morning. 023 2024 Discontinued(M ed list cleanup (will not trigger notification to Pharmacy)) Lancets (OneTouch Delica Plus [id number]) misc TEST BLOOD SUGAR THREE TIMES DAILY 2024 Discontinued(M ed list cleanup (will not trigger notification to Pharmacy)) aspirin 81 MG EC tablet Take 81 mg by mouth. 023 2024 Discontinued(D uplicate order (will not trigger notification to Pharmacy)) cetirizine (ZyrTEC) 10 MG tablet TAKE ONE TABLET BY MOUTH ONCE DAILY 90 tablet 024 2024 Discontinued(M ed list cleanup (will not trigger notification to Pharmacy)) b complex vitamins capsuleIndications :Type 2 diabetes mellitus without complication, without long-term current use of insulin ([facility]),Peripher al nerve disease Take 1 capsule by mouth Once per day. 30 capsule 11 2024 Discontinued(D uplicate order (will not trigger notification to Pharmacy)) metoclopramide (Reglan) 10 MG tabletIndications: Bloating symptom TAKE ONE TABLET BY MOUTH FOUR TIMES DAILY FOR 10 DAYS 40 tablet 2024 Discontinued(M ed list cleanup (will not trigger notification to Pharmacy)) fluticasone (Flonase) 50 MCG/ACT nasal sprayIndications:C ough in adult patient Administer 1 spray into each nostril 2 times daily. spray 1 spray by intranasal route every day in each nostril 16 g 025 2024 Discontinued(M ed list cleanup (will not trigger notification to Pharmacy)) acetaminophen (Tylenol) 500 MG tablet Take 1 tablet (500 mg) by mouth every 6 (six) hours if needed for mild pain for up to 20 doses. 20 tablet 025 2024 Discontinued(M ed list cleanup (will not trigger notification to Pharmacy)) metFORMIN XR (Glucophage-XR) 500 MG 24 hr tabletIndications: Type 2 diabetes mellitus without complication, without long-term current use of insulin ([facility]) TAKE ONE TABLET EVERY EVENING WITH FOOD 30 tablet 5 025 2024 Discontinued cholecalciferol (Vitamin D-3) 25 MCG tablet TAKE ONE TABLET DAILY AT NOON 90 tablet 025 2024 Discontinued(R eorder (will not trigger notification to Pharmacy)) Diclofenac Sodium 1 % gelIndications:Pir iformis syndrome of left side APPLY 2 GRAM'S TO AFFECTED AREA(s) THREE TIMES DAILY NEEDED 100 g 2 025 2024 Discontinued(M ed list cleanup (will not trigger notification to Pharmacy)) nitrofurantoin, macrocrystal-monoh ydrate, (Macrobid) 100 MG capsule Take 1 capsule (100 mg) by mouth 2 times daily for 7 days. 14 capsule 025 2024 Active Problems Problem Noted Date Diagnosed Date Urinary tract infection with hematuria Assessment & Plan (08/29/2024 1:10 PM EDT): Given that patient is chronically immunosuppressed, will treat for UTI with Cipro x 7 days at this time. I will rule out prostatitis which will need 3 to 4 weeks antibiotics. Case was discussed with patient and son and they agree with POC. Increase water intake, rest at home, continue mental suppressants for now and consult to his neurologist. Order labs as above to rule out underlying conditions and return to clinic as needed Chest discomfort 06/20/2022 Assessment & Plan (06/20/2022 [...] Encounters Date Type Department Care Team Description 10/10/2024 1:15 PM EDT Office Visit [facility] [address] [place] [address] Christopher Wang MD Myasthenia gravis ([facility]) (Primary Dx); Other dysphagia; Normocytic anemia; Primary hypertension 10/10/2024 Travel 10/07/2024 Refill [facility] [address] [facility] [address] Christopher Wang MD Type 2 diabetes mellitus without complication, without long-term current use of insulin ([facility]) 10/06/2024 Telephone [facility] [address] [facility] [place] [address] Christopher Wang MD Results 10/03/2024 Patient Outreach [address] [address] Christopher Wang MD Transition Of Care (Tcm) (HDF- Scheduled ) 10/03/[address] [address] Christopher Wang MD Hospital Follow-up 09/27/[address] [address] Christopher Wang MD 09/24/2024 Orders Only GENERIC EXTERNAL DATA DEPARTMENT Provider, Generic External Data 09/23/2024 3:15 PM EDT Office Visit [facility] [address] [place] [address] Christopher Wang MD Other dysphagia (Primary Dx); Dribbling following urination; Primary hypertension; Type 2 diabetes mellitus without complication, without long-term current use of insulin ([facility]); Dietary counseling; Exercise counseling; Class 2 severe obesity due to excess calories with serious comorbidity and body mass index (BMI) of 38.0 to 38.9 in adult ([facility]) 09/23/2024 Travel 09/22/2024 Travel 09/19/2024 Telephone [facility] [address] [place] [address] Christopher Wang MD ER Follow-up 09/15/2024 Results Follow-Up [address] [address] Ifrah Christianson MD POCT urinalysis dipstick manually resulted, POCT COVID-19 Ag Dewitt ID NOW, Culture, Urine, Routine, Additional followed-up results: 4 09/12/2024 Refill [facility] [address] [facility] [place] [address] Christopher Wang MD 09/07/2024 Orders Only GENERIC EXTERNAL DATA DEPARTMENT Provider, Generic External Data 09/07/2024 Refill [facility] [address] [place] [address] Christpoher Wang MD Vitamin B12 deficiency 09/06/2024 9:00 AM EDT Office Visit [facility] [address] [place], [place] [phone] Wayne Webb DDS 09/06/2024 Telephone [facility] [address] [place] [address] Christopher Wang MD 09/05/2024 Travel 09/03/2024 Refill [facility] [address] [place] [address] Christopher Wang MD Gastro-esophageal reflux disease without esophagitis; Peripheral nerve disease 08/29/2024 10:00 AM EDT Office Visit [facility] [address] [place] [phone] Ifrah Christianson MD Urinary tract infection with hematuria, site unspecified (Primary Dx) 08/29/2024 Travel 08/17/2024 10:15 AM EDT Office Visit [facility] [address] [place] [address] Claudette Knight MD Sprain of left sternoclavicular joint, initial encounter (Primary Dx); Type 2 diabetes mellitus without complication, without long-term current use of insulin ([facility]) 08/17/2024 Travel 08/15/2024 Telephone [facility] [address] [place] [address] Christopher Wang MD Nurse Triage 08/09/2024 10:00 AM EDT Office Visit [facility] [address] [place] [address] Janay Veliz, TOMMY 08/03/2024 Refill [facility] [address] [place] [address] Christopher Wang MD 07/26/2024 Telephone [facility] [address] [place] [address] Christopher Wang MD Nurse Triage 07/21/2024 Telephone [facility] [address] [place] [phone] Christopher Wang MD Nurse Triage 07/14/2024 Results Follow-Up [facility] [address] [place] [address] Hortnecia León, RN Mr Brain w/ and w/o Contrast 07/13/2024 Refill [facility] [address] [place] [address] Christopher Wang MD Type 2 diabetes mellitus without complication, without long-term current use of insulin ([facility]) 07/13/2024 Telephone [facility] [address] [place] [address] Christopher Wang MD 07/12/2024 Orders Only [facility] [address] [place] [address] Christopher Wang MD 07/12/2024 Refill [facility] [address] [place] [address] Christopher aWng MD Primary hypertension 07/12/2024 Travel from Last 3 Months Immunizations Immunization Administration Dates Next Due Hep B, adult [...] Pulse 95 10/10/2024 1:21 PM EDT Temperature 36.8 C (98.2 F) 09/23/2024 3:05 PM EDT Respiratory Rate 20 10/10/2024 1:21 PM EDT Oxygen Saturation 99% 10/10/2024 1:21 PM EDT Inhaled Oxygen Concentration - - Weight 122 kg (270 lb) 10/10/2024 1:21 PM EDT Height 185.4 cm (6' 1 ) 10/10/2024 1:21 PM EDT Body Mass Index 35.62 10/10/2024 1:21 PM EDT Plan of Treatment Upcoming Encounters Date Type Department Care Team (Late st Contact Info) Description 11/07/2024 9:15 AM EDT Office Visit [facility] [address] [place], [place] [phone] Christopher Wang MD [address] [place] [address] Health Maintenance Due Date Last Done Comments [...] 08/11/2024 08/11/2022, 07/18, 08/11/2022, Additional history exists Influenza Vaccine (#1) 2024 , 12/09/2021, 11/16/2021, Additional history exists Diabetes: Foot Exam 11/08/2024 11/09/2023, 11/09/2023, 08/28/2022, Additional history exists Dental X-Ray: Bitewings 11/26/2024 11/26/19, 12/03/2021, 04/24/2014 Diabetes: Hemoglobin A1C 12/24/2024 025, 04/11/2024, 11/25/2023, Additional history exists Depression Monitoring 03/26/2025 09/23/2024, 025 Diabetes: Urine Protein Screening 04/11/2025 04/11/2024, 02/03/2023, 12/10/2021, Additional history exists Lipid Panel 04/11/2025 04/11/2024, 01/16, 12/10/2021, Additional history exists Alcohol/Substance Use Screening 09/23/2025 09/23/2024 SDOH Screening 09/23/2025 09/23/2024 Tobacco Screening 10/10/2025 10/10/2024 Colonoscopy 02/23/2027 Colorectal Cancer Screening 02/23/2027 Dental [...] Procedure Name Priority Date/Time Associated Diagnosis Comments SED RATE BY MODIFIED WESTERGREN Routine 10/06/2024 12:03 PM EDT Urinary tract infection with hematuria, site unspecified PSA, TOTAL WITH REFLEX TO PSA, FREE Routine 10/06/2024 12:03 PM EDT Urinary tract infection with hematuria, site unspecified CBC WITH AUTO DIFFERENTIAL Routine 10/06/2024 12:03 PM EDT Urinary tract infection with hematuria, site unspecified C-REACTIVE PROTEIN Routine 10/06/2024 12 :03 PM EDT Primary osteoarthritis of both knees HIGH SENSITIVITY TROPONIN I Routine 09/24/2024 6:40 PM EDT SED RATE BY MODIFIED WESTERGREN Routine 09/24/2024 6:03 PM EDT C-REACTIVE PROTEIN Routine 09/24/2024 6: 03 PM EDT MAGNESIUM Routine 09/24/2024 6:03 PM EDT BASIC METABOLIC PANEL Routine 09/24/2024 6:03 PM EDT HEPATIC FUNCTION PANEL Routine 09/24/2024 6:03 PM EDT CBC WITH AUTO DIFFERENTIAL Routine 09/24/2024 6:03 PM EDT POCT GLUCOSE Routine 09/23/2024 3:55 PM EDT Type 2 diabetes mellitus without complication, without long-term current use of insulin ([facility]) URINALYSIS, COMPLETE, WITH REFLEX TO CULTURE Routine 09/07/2024 6:48 PM EDT COMPREHENSIVE METABOLIC PANEL Routine 09/07/2024 5:35 PM EDT CBC WITH AUTO DIFFERENTIAL Routine 09/07/2024 5:35 PM EDT SARS COV2/INFLUENZA A/B AND RSV RNA QL NAAT Routine 09/07/2024 5:35 PM EDT WAX TRY IN Routine 09/06/2024 9:00 AM EDT CASE PRESENTATION, DETAILED AND EXTENSIVE TREATMENT PLANNING Routine 09/06/2024 9:00 AM EDT POCT COVID-19 AG DEWITT ID NOW Routine 08/29/2024 9:53 AM EDT Urinary tract infection with hematuria, site unspecified POCT URINALYSIS DIPSTICK Routine 08/29/2024 9:51 AM EDT Urinary tract infection with hematuria, site unspecified CHLAMYDIA/TRICHOMONAS /NEISSERIA GONORRHOEAE, PCR, URINE Routine 08/29/2024 9:49 AM EDT Urinary tract infection with hematuria, site unspecified CULTURE, URINE, ROUTINE Routine 08/29/2024 9:41 AM EDT Urinary tract infection with hematuria, site unspecified POCT GLUCOSE Routine 08/17/2024 9:57 AM EDT Type 2 diabetes mellitus without complication, without long-term current use of insulin ([facility]) CASE PRESENTATION, DETAILED AND EXTENSIVE TREATMENT PLANNING Routine 08/09/2024 10:00 AM EDT BITE REGISTRATION Routine 08/09/2024 10: 00 AM EDT MR BRAIN W AND WO CONTRAST Routine 07/12/2024 10:17 AM EDT Tinnitus of left ear POCT GLYCATED HEMOGLOBIN, TOTAL Routine 06/23/2024 1:32 PM EDT Type 2 diabetes mellitus without complication, without long-term current use of insulin (CMS/HCC) ALBUMIN, RANDOM URINE W/CREATININE Routine 04/11/2024 10:11 AM EST Type 2 diabetes mellitus without complication, without long-term current use of insulin (CMS/HCC) LIPID PANEL, STANDARD Routine 04/11/2024 10:07 AM EST Type 2 diabetes mellitus without complication, without long-term current use of insulin (CMS/HCC) PANORAMIC RADIOGRAPHIC IMAGE Routine 03/30/2024 9:00 AM EST Full PROPHYLAXIS - ADULT Routine 11/26/2023 8:00 AM EDT BITEWINGS - 4 RADIOGRAPHIC IMAGES Routine 11/26/2023 8:00 AM EDT PERIODIC ORAL EVALUATION - ESTABLISHED PATIENT Routine 11/26/2023 8:00 AM EDT ZZZ HISTORICAL HEPATITIS C AB W/REFL TO HCV RNA, QN, PCR Routine 2021 9:35 AM EDT from Last 3 Months or Most Recently Relevant to Health Maintenance Results * PSA, Total With Reflex to PSA, Free (10/06/2024 12:03 PM EDT) PSA,Total (Free>4and<10) 0.87 0.00 - 4.00 ng/mL [facility] Comment:A Free PSA was not p erformed: The percentage of Free PSA can be used to enhance the differentiation of prostate cancer from benign prostatic disease in subjects whose PSA levels are between 4.0 and 10.0 ng/mL. For subjects whose PSA levels are below 4.0 or above 10.0 ng/mL, the risk of prostate cancer is determined on the basis of the PSA alone. Therefore the % Free PSA is recommended only for those subjects whose PSA levels are between 4.0 and 10.0 ng/mL.PSA methodology: Dewitt Alinity i ChemiluminescentMicroparticle Immunoassay (CMIA) 10/06/2024 12:0 3 PM EDT 10/06/2024 12:03 PM EDT us Ifrah Christianson MD LAB BLOOD ORDERABLES Fin al Result [facility] [address] [place] [phone] * (ABNORMAL) CBC auto differential (10/06/2024 12:03 PM EDT) Only the most recent of3 resultswithin the time period is included. White Blood Count 12.8(H) 4.8 - 10.8 X10*3/uL [facility] Red Blood Count 3.26(L) 4.60 - 5.80 X10*6/uL [facility] Hemoglobin 10.2(L) 14.0 - 18.0 g/dl [facility] Hematocrit 29.3(L) 42.0 - 52.0 % [facility] Mean Corpuscular Volume 89.9 80.0 - 98.0 fL [facility] Mean Corpuscular Hemoglobin 31.3 27.0 - 33.0 pg [facility] Mean Corpuscular HGB Conc 34.8 31.0 - 36.0 g/dl [facility] Red Cell Distribution Width 18.0(H) 11.0 - 16.0 % [facility] Platelet Count 147(L) 160 - 400 X10*3/uL [facility] Mean Platelet Volume 11.0 9.4 - 12.4 fL [facility] Neutrophils Percent Auto 73.0 45 - 73 % [facility] Imm Gran Pct Auto 2.2(H) 0.0 - 0.4 % [facility] Lymphocytes Percent Auto 17.9(L) 20 - 40 % [facility] Monocytes Percent Auto 6.4 2 - 11 % [facility] Eosinophils Percent Auto 0.2 0 - 4 % [facility] Basophils Percent Auto 0.3 0 - 2 % [facility] NRBC Pct Auto 0.9(H) 0.0 - 0.2 /100WBC [facility] Neutrophils Absolute Auto 9.4(H) 2.0 - 8.3 x10*3/uL [facility] Imm Gran Abs Auto 0.28(H) 0.00 - 0.03 X10*3/uL [facility] Lymphocytes Absolute Auto 2.3 1.2 - 4.9 X10*3/uL [facility] Monocytes Absolute Auto 0.8 0.1 - 1.2 X10*3/uL [facility] Eosinophils Absolute Auto 0.0 0.0 - 0.4 X10*3/uL [facility] Basophils Absolute Auto 0.0 0.0 - 0.2 X10*3/uL [facility] NRBC Abs Auto 0.110(H) 0.0 - 0.012 X10*3/uL [facility] Blood Venous blood specimen / Unknown 10/06/2024 12:03 PM EDT 10/06/2024 12:03 PM EDT Ifrah Christianson MD LAB BLOOD ORDERABLES Fin al Result Performing Organization Address City/[facility] Co de Phone Number [facility] [address] [place] [phone] * (ABNORMAL) Sed Rate by Modified Nir (10/06/2024 12:03 PM EDT) Only the most recent of2 resultswithin the time period is included. Erythrocyte Sedimentation Rate 91(H) 0 - 15 MM/HR [facility] Comment:Patients with polycy themia and many hemoglobin abnormalitiesmay have depressed sed rates whereas patients with anemiamay have elevated sed rates. Blood Venous blood specimen / Unknown 10/06/2024 12:03 PM EDT 10/06/2024 12:03 PM EDT Ifrah Christianson MD LAB BLOOD ORDERABLES Fin al Result Performing Organization Address City/[facility]/ZIP Co de Phone Number [facility] [address] [place] [phone] * (ABNORMAL) C-reactive Protein (10/06/2024 12:03 PM EDT) Only the most recent of2 resultswithin the time period is included. C Reactive Protein 3.55(H) < or = 0.50 mg/dL [facility] Blood Venous blood specimen / Unknown 10/06/2024 12:03 PM EDT 10/06/2024 12:03 PM EDT us Christopher Wang MD LAB BLOOD ORDERABLES Final Result Performing Organization Address [facility] Co de Phone Number [facility] [address] [place] [phone] * High Sensitivity Troponin I (09/24/2024 6:40 PM EDT) [facility] TROPONIN I HIGH SENSITIVITY <2.7 <3.5 - 35.0 ng/L [facility] Comment:The Dewitt high sens itivity Troponin-I results should beused in conjunction with other diagnostic information suchas ECG, clinical observations and information, and patientsymptoms to aid in the diagnosis of CA. 09/24/2024 6:40 PM EDT 09/24/2024 6:44 PM EDT us Generic External Data Provider LAB BLOOD ORDERAB LES Final Result Performing Organization Address [facility] Co ak Phone Number [facility] [address] [place] [phone] * Magnesium (09/24/2024 6:03 PM EDT) [facility] Magnesium 1.7 1.6 - 2.6 mg/dL [facility] 09/24/2024 6:03 PM EDT 09/24/2024 6:07 PM EDT Generic External Data Provider LAB BLOOD ORDERAB LES Final Result Performing Organization Address [facility] Co de Phone Number [facility] [address] [place] [phone] * (ABNORMAL) Hepatic Function Panel (09/24/2024 6:03 PM EDT) [facility] Bilirubin, Total 0.7 0.0 - 1.0 mg/dL [facility] Bilirubin, Direct 0.3 0.0 - 0.5 mg/dL [facility] Aspartate Amino Transferase 33 5 - 37 U/L [facility] Alanine Aminotransferase 52(H) 0 - 40 U/L [facility] Total Protein 7.1 6.5 - 8.0 g/dL [facility] Albumin Level 4.2 3.5 - 5.0 g/dL [facility] Alkaline Phosphatase 69 39 - 117 U/L [facility] 09/24/2024 6:03 PM EDT 09/24/2024 6:07 PM EDT us Generic External Data Provider LAB BLOOD ORDERAB LES Final Result [facility] [address] [place] [address] [phone] * (ABNORMAL) Basic Metabolic Panel (09/24/2024 6:03 PM EDT) Sodium 141 135 - 145 mmol/L [facility] Potassium 3.8 3.3 - 5.1 mmol/L [facility] Chloride 106 96 - 108 mmol/L [facility] Carbon Dioxide 26 22 - 29 mmol/L [facility] Anion Gap 13 12 - 20 [facility] Urea Nitrogen (BUN) 17(H) 9 - 16 mg/dL [facility] Creatinine, Serum 0.78 0.5 - 1.4 mg/dL [facility] Creatinine Clr Calc Pharmacy 130.5 [facility] Comment:eGFR (calculated fro m the MDRD study equation) and eCrCl(calculated from the Cockcroft-Gault equation) are based ondifferent parameters and may not yield comparable results.If eCrCl result is absurd, please check patient'sheight/weight. Estimated Glomerular Filt Rate >60 [facility] Comment:Chronic Kidney Disea se: Estimated GFR < 60 mL/min/[id number] Kidney Disease: Estimated GFR < 15 mL/min/1.73m2 Glucose 116(H) 60 - 115 mg/dL [facility] Calcium 9.2 8.4 - 10.2 mg/dL [facility] 09/24/2024 6:03 PM EDT 09/24/2024 6:07 PM EDT us Generic External Data Provider LAB BLOOD ORDERAB LES Final Result [facility] [address] [place] [address] [phone] * POCT Glucose (09/23/2024 3:55 PM EDT) Only the most recent of2 resultswithin the time period is included. Glucose Blood, POC 115 60 - 200 mg/dL QC Media Lot # [id number] Comment:random Lot# Expiration Date Blood Capillary blood specimen / Unknown 09/23/2024 3:55 PM EDT us Christopher Wang MD POINT OF CARE TEST ENTER/ED IT ORDERABLES Final Result * (ABNORMAL) Urinalysis, Complete, with Reflex to Culture (09/07/2024 6:48 PM EDT) Color Urine Yellow [facility] Appearance Urine Clear [facility] PH 5.5 5.0 - 9.0 [facility] Glucose Urine UA Negative Negative mg/dL [facility] Urine Blood Negative Negative [facility] Specific Robson - Urine 1.020 1.005 - 1.025 [facility] Urine Protein Negative Neg-Trace mg/dL [facility] Urine Ketones Negative Negative mg/dL [facility] Nitrite Urine Negative Negative [facility] Leukocyte Esterase Urine Trace(A) Negative [facility] RBC Urine 0-2 0 - 2 /HPF [facility] Urine WBC 0-5 0 - 5 /HPF [facility] Urine Squamous Epithelial Cell 0-2 0 - 2 /HPF [facility] Urine Bacteria Trace None Seen [facility] Hyaline Casts, Urine 0-2 0 - 2 /LPF [facility] 09/07/2024 6:48 PM EDT 09/07/2024 6:50 PM EDT Narrative [facility] - 09/07/2024 7:13 PM EDT [id number], Clean Catch Generic External Data Provider LAB URINE ORDERAB LES Final Result Performing Organization Address [facility] Co de Phone Number [facility] [address] [place] [phone] * SARS-CoV-2 RNA, Influenza A/B, and RSV RNA, Ql NAAT (09/07/2024 5:35 PM EDT) Influenza A PCR NEGATIVE Negative [facility] Influenza B PCR NEGATIVE Negative [facility] Resp Syncy Virus RNA Qual PCR NEGATIVE Negative [facility] SARS COV2 PCR NEGATIVE Negative [facility] Comment:All test results mus t be correlated with clinical findings.Negative results do not preclude SARS-CoV2, influenza Avirus, influenza B virus and/or RSV infectionand should not be used as the sole basis for treatment orother patient management decisions. Negative results must becombined with clinical observations, patient history, andepidemiological information.This test has not been evaluated for monitoring treatment ofinfection.This test has been authorized by the FDA under an EmergencyUse Authorization (EUA) for use by authorized laboratories.Testing performed on the [employer] GeneXpert utilizingreal-time RT-PCR.All SARS CoV2 and positive influenza A/B results arereported to [facility]. 09/07/2024 5:35 PM EDT 09/07/2024 5:39 PM EDT Generic External Data Provider LAB MICROBIOLOGY - GENERAL ORDERABLES Final Result Performing Organization Address [facility]/ZIP Co de Phone Number [facility] [address] [place] [phone] * (ABNORMAL) Comprehensive Metabolic Panel (09/07/2024 5:35 PM EDT) Sodium 141 135 - 145 mmol/L [facility] Potassium 4.2 3.3 - 5.1 mmol/L [facility] Chloride 109(H) 96 - 108 mmol/L [facility] Carbon Dioxide 25 22 - 29 mmol/L [facility] Anion Gap 11(L) 12 - 20 [facility] Urea Nitrogen (BUN) 15 9 - 16 mg/dL [facility] Creatinine, Serum 0.86 0.5 - 1.4 mg/dL [facility] Creatinine Clr Calc Pharmacy 119.2 [facility] Comment:eGFR (calculated fro m the MDRD study equation) and eCrCl(calculated from the Cockcroft-Gault equation) are based ondifferent parameters and may not yield comparable results.If eCrCl result is absurd, please check patient'sheight/weight. Estimated Glomerular Filt Rate >60 [facility] Comment:Chronic Kidney Disea se: Estimated GFR < 60 mL/min/1.26t9Lbwzev Kidney Disease: Estimated GFR < 15 mL/min/1.73m2 Glucose 119(H) 60 - 115 mg/dL [facility] Calcium 8.9 8.4 - 10.2 mg/dL [facility] Bilirubin, Total 0.5 0.0 - 1.0 mg/dL [facility] Aspartate Amino Transferase 31 5 - 37 U/L [facility] Alanine Aminotransferase 42(H) 0 - 40 U/L [facility] Total Protein 6.6 6.5 - 8.0 g/dL [facility] Albumin Level 4.0 3.5 - 5.0 g/dL [facility] Alkaline Phosphatase 68 39 - 117 U/L [facility] 09/07/2024 5:35 PM EDT 09/07/2024 5:39 PM EDT us Generic External Data Provider LAB BLOOD ORDERAB LES Final Result [facility] [address] [place] [address] [phone] * POCT COVID-19 Ag Dewitt ID NOW (08/29/2024 9:53 AM EDT) Coronavirus Antigen PCR Negative Negative, Indeterminate, None Detected, Invalid, Specimen unsatisfactory for evaluation, Weakly Positive, 2+ Swab 08/29/2024 9:53 AM EDT Ifrah Christianson MD POINT OF CARE TEST ENTER /EDIT ORDERABLES Final Result * (ABNORMAL) POCT urinalysis dipstick manually resulted (08/29/2024 9:51 AM EDT) Pathologist [facility] Color, UA Yellow Comment:Dark Yellow Clarity, UA Clear Glucose, UA Trace Comment:100 mg/dl Bilirubin, UA Trace Comment:small Ketones, UA Negative Spec Grav, UA 1.025 Blood, UA Positive(A) Negative, None Detected Comment:trace-intact pH, UA 6.0 Protein, UA Trace Urobilinogen, UA 4.0 Leukocytes, UA Trace Negative, Rare, Trace Nitrite, UA Positive(A) Negative, None Detected Urine 08/29/2024 9:5 1 AM EDT Ifrah Christianson MD POINT OF CARE TEST ENTER /EDIT ORDERABLES Final Result * Chlamydia/N. Gonorrhoeae, PCR, Urine (08/29/2024 9:49 AM EDT) Pathologist [facility] CT PCR, Urine NOT DETECTED Not Detect. [facility] Comment:A not detected test result does not exclude the possibilityof infection because test results can be affected byimproper specimen collection, concurrent antibiotic therapy,or the number of organisms in the specimen which may bebelow the sensitivity of the test. As with many diagnostictests, results from the Xpert CT/NG assay should beinterpreted in conjunction with other laboratory andclinical data available to the clinician.The Xpert CT/NG assay should not be used for the evaluationof suspected sexual abuse or for other medico-legalindications. Additional testing is recommended in anycircumstance when false positive or false negative resultscould lead to adverse medical, social or psychologicalconsequences. NG PCR, Urine NOT DETECTED Not Detect. [facility] Comment:A not detected test result does not exclude the possibilityof infection because test results can be affected byimproper specimen collection, concurrent antibiotic therapy,or the number of organisms in the specimen which may bebelow the sensitivity of the test. As with many diagnostictests, results from the Xpert CT/NG assay should beinterpreted in conjunction with other laboratory andclinical data available to the clinician.The Xpert CT/NG assay should not be used for the evaluationof suspected sexual abuse or for other medico-legalindications. Additional testing is recommended in anycircumstance when false positive or false negative resultscould lead to adverse medical, social or psychologicalconsequences. Urine (Urine, Random) 08/29/2024 9:49 AM EDT 08/29/2024 2:22 PM EDT Ifrah Christianson MD LAB URINE ORDERABLES Fin al Result Performing Organization Address [facility] Co de Phone Number [facility] [address] [place] [phone] * Culture, Urine, Routine (08/29/2024 9:41 AM EDT) Urine Urine specimen obtained by clean catch procedure / Unknown 08/29/2024 9:41 AM EDT 08/29/2024 2:08 PM EDT Comment:UACC Narrative [facility] - 09/01/2024 7:39 AM EDT Escherichia coli Quant > 100,000 cfu/mL Escherichia coli: Ampicillin <=2(S) Escherichia coli: Cefazolin (Urine) <=1(S) Escherichia coli: Cefepime <=0.12(S) Escherichia coli: Ceftriaxone <=0.25(S) Escherichia coli: Ciprofloxacin >=4(R) Escherichia coli: Gentamicin <=1(S) Escherichia coli: Nitrofurantoin <=16(S) Escherichia coli: Trimethoprim/Sulfamethoxazole <=20(S) Specimen Source: Urine clean catch Ifrah Christianson MD LAB MICROBIOLOGY - GENER AL ORDERABLES Final Result [facility] [address] [place] [phone] * Mr Brain w/ and w/o Contrast (07/12/2024 10:17 AM EDT) Anatomical Region Laterality Modality Brain Magnetic Resonan ce 07/12/2024 10:1 7 AM EDT Narrative 07/12/2024 11:52 AM EDT [address] [address] Magnetic Resonance Report Signed Patient: Blaine Farris MR#: [id number] : 1955 Acct:[id number] Age/Sex: 69 / M ADM Date: 07/12/24 Loc: HO.MRI Attending Dr: Christopher Wang MD Ordering Physician: Christopher Wang MD Date of Service: 07/12/24 Procedure(s): MR head/brain wo/w con Accession Number(s): [id number] cc: Christopher Wang MD EXAMINATION: MR BRAIN IAC PROTOCOL WITHOUT AND WITH CONTRAST CLINICAL INFORMATION: Tinnitus, left ear. Decreased/hearing loss, left ear COMPARISON: None available. TECHNIQUE: Multiplanar, multisequence MRI of the brain IAC protocol was obtained before and after the intravenous administration of 10 mL gadolinium based (Gadavist) without reported immediate complications. FINDINGS: The cochlear and vestibular components of the 8th cranial nerves demonstrated no signal abnormality or enhancing mass. No enhancing mass in the cerebellopontine angle cisterns nor the perimesencephalic cisterns. No enhancing lesion within the brainstem. The anterior inferior cerebral arteries are type I laterally. Flow-void signal within the main vessels is normal. Meckel's caves and cisternal segments of the trigeminal nerves with the anterior zones demonstrated no signal abnormality or enhancing mass. No restricted diffusion. No acute intracranial hemorrhage, mass effect, midline shift, hydrocephalus or herniation. Osorio-white matter differentiation is normal. Multifocal patchy and punctate subcortical deep white matter hyperintense T2 FLAIR signal involving centrum semiovale and dumont radiata. Hyperintense T2 FLAIR signal in the mid garima No signal abnormality or enhancing lesion within the uterus:. Sellar/suprasellar region is normal. Craniocervical junction demonstrates normal position of the cerebellar tonsils. Midline structures are normal. MR/MR head/brain wo/w con IMPRESSION: No vestibular schwannoma. Nonspecific white matter T2 FLAIR is signal. Consider small vessel occlusive disease in the correct clinical settings. Electronically signed by: Nathan Holland MD 07/12/2024 11:49 AM EDT RP Dictated By: Nathan Hinojosa MD Signed By: <Electronically signed by Nathan Newsome MD in OV> 07/12/24 1149 DD/ 1017 TD/TT: 07/12/24 1115 Office Runner: Procedure Note Donotuseinterpreter, Image - 07/12/2024 [place] [address] Magnetic Resonance Report Signed Patient: Blaine Farris#: [id number] : 8Acct:[id number] Age/Sex: 69 / MADM Date: 07/12/24 Loc: HO.MRI Attending Dr: Christopher Wang MD Ordering Physician: Christopher Wang MD Date of Service: 07/12/24 Procedure(s): MR head/brain wo/w con Accession Number(s): [id number] cc: Christopher Wang MD EXAMINATION: MR BRAIN IAC PROTOCOL WITHOUT AND WITH CONTRAST CLINICAL INFORMATION: Tinnitus, left ear. Decreased/hearing loss, left ear COMPARISON: None available. TECHNIQUE: Multiplanar, multisequence MRI of the brain IAC protocol was obtained before and after the intravenous administration of 10 mL gadolinium based (Gadavist) without reported immediate complications. FINDINGS: The cochlear and vestibular components of the 8th cranial nerves demonstrated no signal abnormality or enhancing mass. No enhancing mass in the cerebellopontine angle cisterns nor the perimesencephalic cisterns. No enhancing lesion within the brainstem. The anterior inferior cerebral arteries are type I laterally. Flow-void signal within the main vessels is normal. Meckel's caves and cisternal segments of the trigeminal nerves with the anterior zones demonstrated no signal abnormality or enhancing mass. No restricted diffusion. No acute intracranial hemorrhage, mass effect, midline shift, hydrocephalus or herniation. Osorio-white matter differentiation is normal. Multifocal patchy and punctate subcortical deep white matter hyperintense T2 FLAIR signal involving centrum semiovale and dumont radiata. Hyperintense T2 FLAIR signal in the mid garima No signal abnormality or enhancing lesion within the uterus:. Sellar/suprasellar region is normal. Craniocervical junction demonstrates normal position of the cerebellar tonsils. Midline structures are normal. MR/MR head/brain wo/w con IMPRESSION: No vestibular schwannoma. Nonspecific white matter T2 FLAIR is signal. Consider small vessel occlusive disease in the correct clinical settings. Electronically signed by: Nathan Holland MD 07/12/2024 11:49 AM EDT RP Dictated By: Nathan Hinojosa MD Signed By: <Electronically signed by Nathan Newsome MDin OV> 07/12/24 1149 DD/ 1017 TD/TT: 07/12/24 1115 Office Runner: Christopher Wang MD IMG MRI PROCEDURES Final Re sult * POCT HGB A1C (06/23/2024 1:32 PM EDT) Pathologist [facility] Hemoglobin A1C 5.5 4.0 - 6.0 % QC Media Lot # [id number] Lot# Expiration Date [id number] Blood 06/23/2024 1:32 PM EDT Christopher Wang MD POINT OF CARE TEST ENTER/ED IT ORDERABLES Final Result * Albumin, Random Urine W/Creatinine (04/11/2024 10:11 AM EST) Creatinine, Urine 77.42 mg/dL [facility] Microalbumin Urine 6.0 mg/L H [facility] Microalbum Creatinine Ratio Ur 7.7 <30 ug/mg cr [facility] Comment:Albumin/Creatinine R atio Reference Ranges: Normal: < 30 ug/mg creatinine Microalbuminuria: 30 - 300 ug/mg creatinineClinical Albuminuria: > 300 ug/mg creatinine Urine (Urine, Random) 04/11/2024 10:11 AM EST 04/11/2024 2:41 PM EST us Christohper Wang MD LAB URINE ORDERABLES Final Result Performing Organization Address City/[facility]/ZIP Co de Phone Number [facility] [address] [place] [phone] * Lipid Panel, Standard (04/11/2024 10:07 AM EST) Triglycerides 53 <150 mg/dL [facility] Comment:Desirable Triglyceri de: less than 150 mg/dLBorderline High Triglyceride 150-199 mg/dLHigh Triglyceride: 200-499 mg/dLVery High Triglyceride: greater than or equal to 5OO mg/dL Cholesterol 128 <200 mg/dL [facility] Comment:Desirable Cholestero l: less than 200 mg/dLBorderline High Cholesterol: 200-239 mg/dLHigh Cholesterol: greater than 239 mg/dL LDL Cholesterol Calculated 61 <100 mg/dL [facility] Comment:Desirable LDL: less than 100 mg/dLNear Optimal/Above Optimal LDL: 110- 129 mg/dLBorderline High LDL: 130-159 mg/dLHigh LDL: 160-189 mg/dLVery High LDL: greater than or equal to 190 mg/dL HDL Cholesterol 57 >40 mg/dL [facility] Comment:Desirable HDL: great er than 40 mg/dL Note: This HDL assay may give artificially low results in patients with liver disease. Blood Venous blood specimen / Unknown 04/11/2024 10:07 AM EST 04/11/2024 2:41 PM EST us Christopher Wang MD LAB BLOOD ORDERABLES Final Result Performing Organization Address City/[facility]/ZIP Co de Phone Number [facility] [address] [place] [phone] * HEPATITIS C AB W/REFL TO HCV RNA, QN, PCR (2021 9:35 AM EDT) HEPATITIS C ANTIBODY NON-REACT [facility] NON-REACT [facility] INDEX 0.01 <1.00 [facility] Comment: HCV antibody was non-reactive. There is no laboratory evidence of HCV infection. In most cases, no further action is required. However, if recent HCV exposure is suspected, a test for HCV RNA (test code 38111) is suggested. For additional information please refer to http://education.Photetica/faq/LXC44v3 (This link is being provided for informational/ educational purposes only.) 2021 9:35 AM EDT us Christopher Wang MD HISTORICAL/NON ORDERABLE JENIFER CARRASQUILLO Final Result [facility] [address] [place] [address], from Last 3 Months or Most Recently Relevant to Health Maintenance Insurance MEDICARE REPLACEMENT PPO [facility] STAND ADULT Care Teams Senior Packaging Engineer Relationship Specialty Start Date End Date Christopher Wang MD [address] [place] [phone] PCP - General Internal Medicine 08/23/19
--- OUTSIDE RECORDS SUMMARY | 2024-10-10 15:37 | XMS_ITS | Encounter Summary ---
Author Organization [employer] Address [address] [address] Care Team Providers Care Certified Dental Assistant Name Role Phone Christopher Wang MD Primary Care Provider [phone] Reason for Visit * Reason Onset Date Comments Nurse Triage 07/21/2024 Encounter Details Date Type Department Care Team ([facility] st Contact Info) Description 07/21/2024 Telephone [facility] [address] [place] [address] Christopher Wang MD [address] [place] [address] Nurse Triage Social History Tobacco Use Types Packs/Day Years [...] encounter Miscellaneous Notes * Telephone Encounter - Jigna Stern - 07/21/2024 11:46 AM EDT Tc from Pt stating he has some spots on his body. The doctor had already seen him and prescribed a cream but before it was one and now he has several spots. documented in this encounter Plan of Treatment Upcoming Encounters Date Type Department Care Team (Late st Contact Info) Description 11/07/2024 9:15 AM EDT Office Visit [facility] [address] [place] [address] Christopher Wang MD [address] [place], [place] [phone] documented as of this encounter Visit Diagnoses Not on filedocumented in this encounter Additional Health Concerns Assessment Noted Time PHQ-9 Depression Total Score: 1 11/07/20 24 1:52 PM EST documented as of this encounter Care Teams Certified Dental Assistant Relationship Specialty Start Date End Date Christopher Wang MD [address] [place] [phone] PCP - General Internal Medicine 08/23/19 documented as of this encounter
--- OUTSIDE RECORDS SUMMARY | 2024-10-10 15:37 | XMS_ITS | Encounter Summary ---
Author Organization [employer] Address [address] [place] [address] Care Team Providers Care Production Intern Name Role Phone Christopher Wnag MD Primary Care Provider [phone] Reason for Visit * Reason Comments Med Refill Encounter Details Date Type Department Care Team ([facility] st Contact Info) Description 10/23/2023 Refill [facility] [address] [place], [place] [phone] Christopher Wang MD [address] [place] [address] Bloating symptom Social History Tobacco Use Types [...] 11/07/2024 9:15 AM EDT Office Visit [facility] [address] [place] [address] Christopher Wang MD [address] [place] [address] documented as of this encounter Visit Diagnoses Diagnosis Bloating symptom Flatulence, eructation, and gas pain documented in this encounter Additional Health Concerns Assessment Noted Time PHQ-9 Depression Total Score: 0 03/04/19 23 9:18 AM EST documented as of this encounter Care Teams Production Intern Relationship Specialty Start Date End Date Christopher Wang MD [address] [place] [address] PCP - General Internal Medicine 08/23/19 documented as of this encounter
--- OUTSIDE RECORDS SUMMARY | 2024-10-10 15:37 | XMS_ITS | Encounter Summary ---
Author Organization [employer] Address [address] [place] [address] [address], [place] [address] Care Team Providers Care Bridge Gang Worker Name Role Phone Christopher Wang MD Primary Care Provider [phone] Encounter Details Date Type Department Care Team (Latest Contact Info) Description 12/30/2021 Abstract [facility] CONVERSIONS Dental, Provider, DDS Social History Tobacco [...] Upcoming Encounters Date Type Department Care Team ( st Contact Info) Description 11/07/2024 9:15 AM EDT Office Visit [facility] [address] [place] [address] Christopher Wang MD [address] [place] [address] documented as of this encounter Visit Diagnoses Not on filedocumented in this encounter Care Teams Bridge Gang Worker Relationship Specialty Start Date End Date Christopher Wang MD [address] [place] [address] PCP - General Internal Medicine 08/23/19 documented as of this encounter
--- OUTSIDE RECORDS SUMMARY | 2024-10-10 15:37 | XMS_ITS | Encounter Summary ---
Author Organization [employer] Address [address] [place] [address] [address] [place] [address] Care Team Providers Care Department Of Natural Resources Officer Name Role Phone Christopher Wang MD Primary Care Provider [phone] Encounter Details Date Type Department Care Team ([facility] st Contact Info) Description 09/29/2023 Orders Only [facility] [address] [place], [place] [phone] Christopher Wang MD [address] [place] [address] Gastroesophageal reflux disease, unspecified whether esophagitis present [...] 11/07/2024 9:15 AM EDT Office Visit [facility] [address] [place] [address] Christopher Wang MD [address] [place] [address] documented as of this encounter Visit Diagnoses Diagnosis Gastroesophageal reflux disease, unspecified whether esophagitis present- Primary documented in this encounter Additional Health Concerns Assessment Noted Time PHQ-9 Depression Total Score: 0 03/04/19 23 9:18 AM EST documented as of this encounter Care Teams Department Of Natural Resources Officer Relationship Specialty Start Date End Date Christopher Wang MD [address] [place] [address] PCP - General Internal Medicine 08/23/19 documented as of this encounter
--- OUTSIDE RECORDS SUMMARY | 2024-10-10 15:37 | XMS_ITS | Encounter Summary ---
Author Organization [employer] Address [address] [place] [address] Care Team Providers Care Yarrow Gatherer Name Role Phone Christopher Wang MD Primary Care Provider [phone] Reason for Visit * Reason Comments Med Refill Encounter Details Date Type Department Care Team ([facility] st Contact Info) Description 06/14/2024 Refill [facility] MEDICINE [address] [place] [address] Christopher Wang MD [address] [place] [address] Social History Tobacco Use Types Packs/Day Years [...] Description 11/07/2024 9:15 AM EDT Office Visit [facility] CHC MED & PEDS [address] [place] [address] Christopher Wang MD [address] [place] [address] documented as of this encounter Visit Diagnoses Not on filedocumented in this encounter Additional Health Concerns Assessment Noted Time PHQ-9 Depression Total Score: 1 12/24/19 24 1:52 PM EST documented as of this encounter Care Teams Yarrow Gatherer Relationship Specialty Start Date End Date Christopher Wang MD [address] [place] [address] PCP - General Internal Medicine 08/23/19 documented as of this encounter
[2024-10-10 17:28] LABS: MANUAL DIFF FLAG NO
[2024-10-10 17:32] LABS: Hematocrit 29.7 % (42.0-52.0); Hemoglobin 10.1 g/dl (14.0-18.0); Imm Gran Abs Auto 0.09 X10*3/uL (0.00-0.03); Imm Gran Pct Auto 0.8 % (0.0-0.4); Lymphocytes Absolute Auto 1.5 X10*3/uL (1.2-4.9); Mean Corpuscular HGB Conc 34.0 g/dl (31.0-36.0); Mean Corpuscular Hemoglobin 31.8 pg (27.0-33.0); Mean Corpuscular Volume 93.4 fL (80.0-98.0); NRBC Abs Auto 0.040 X10*3/uL (0.0-0.012); NRBC Pct Auto 0.3 /100WBC (0.0-0.2); Platelet Count 184 X10*3/uL (160-400); Red Blood Count 3.18 X10*6/uL (4.60-5.80); White Blood Count 12.0 X10*3/uL (4.8-10.8)
== END 2024-10-10 14:12 | disposition home or self-care (01) ==
LOC: HO.CHCLDS 14:11
PROVIDERS: Psychiatry & Neurology Neurology; Visit Provider Internal Medicine
DX: G70.00 Myasthenia gravis without (acute) exacerbation (principal)
CPT/HCPCS: 36415; 85025

== ENCOUNTER 2024-11-14 11:11 | Outpatient (AMB) | payer MEDICARE, SELFPAY ==
--- OUTSIDE RECORDS SUMMARY | 2023-05-15 07:30 | XMS_ITS ---
Author Organization [facility] Address [address] [place] [address] Care Team Providers Care Lockstitch Collar Setter Name Role Phone Christopher Wang M.D. Primary Care Provider Un available Rubén Bruce Jr Unavailable REASON FOR VISIT abnormal UGI, dysphagia Problems Problem Type SNOMED Code ICD Code Onset Dates Problem Status W/U Status Risk Notes Problem Gastro-esophagea l reflux disease without esophagitis (578210593) Gastro-esophage al reflux disease without esophagitis (K21.9) Active confirmed Encounters Encounter Location Date Provider Diagnosis [facility] Outpatient [address] [place] [id number] 05/15/2023 Rubén Bruce Jr Abnormal CT scan, [...] 10:40:00 AM, [address], [address], [place], [address], Progress Notes * ANAIS JAEGERDOB:10/1955 (69 yo M)Acc No.[id number]:05/15/2023 EGD/MAC Patient: ANAIS BULLOCK Provider: Barbra Bruce MD :1955 A ge:67 Y S ex:Male Date:05/15/2023 Address:[address] [place] [address] Pcp:Christopher Wang M.D. Subjective: * Chief Complaints: * 1 . abnormal UGI, dysphagia. * Medical History: Objective: * Vitals: Assessment: * Assessment: 1. A bnormal CT scan, esophagus - R93.3 (Primary) 2 . G liss-esophageal reflux disease without esophagitis - K21.9 3 . O ther dysphagia - R13.19 ? Plan: * Treatment: * Procedure Codes: 4 3239 UPPER GI ENDOSCOPY, BIOPSY, 00269 ESOPH ENDOSCOPY, DILATION, Modifiers: 59 * * The named appointment provid er may or may not be the originator of this progress note, and it is not deemed complete until electronically signed by the appointment provider. Sign off status: Pending * Provider: Barbra Bruce MD Date: 05/15/2023 Generated for Ted santana/Winston/Yesyitting on: 11/14/2024 12:40 PM EDT
--- NOTE | 2024-11-14 11:34 | A.OFFVIS_ITS ---
Intake Visit Reasons: 6 weeks with MG Allergies No Known Allergies (No Known Allergies*) Allergy (Verified 09/24/24 17:53) HPI Comments Details: 69 years old man with antibody positive myasthenia gravis that was diagnosed in 2015 presenting with difficulty speaking and swallowing. Acetyl choline receptor antibody titers, blocking, binding, and modulating, were high. CT chest at that time revealed lung nodules with possibility of granulomatous disease but no thymus lesion. He was taking prednisone and pyridostigmine in 2016 when he switched his care to [facility]. In September of 2024, he was admitted at [facility] with exacerbation of myasthenia gravis. His neurologist at [facility] had suggested that he could not take IVIG due to possibility of hemolytic anemia and similarly could not be treated with plasmapheresis. His opinion was different stating that he had numerous treatment with IVIG in when it was given slowly he was fine. He said that 1 time it was given very fast and he had some trouble. He had been taking azathioprine but his symptoms continued to worsen. In hospital, he was treated with IVIG without complications. He switched back his care to [facility]. Apparently he size primary care physician and was sent to [facility] with worsening of some symptoms. There, he was diagnosed with an infection and treated with antibiotic but no IVIG or plasmapheresis was done. His myasthenia gravis medicines were adjusted. Now he was feeling much better with no active symptoms. [facility] Medical History Lipoma Coronary atherosclerosis Costochondritis Elevated cholesterol WILKERSON (nonalcoholic steatohepatitis) Sleep apnea Normocytic anemia Hypertension Diabetes Myasthenia gravis Surgical History S/P excision of lipoma (05/11/23) Hx laparoscopic cholecystectomy H/O colonoscopy Hx of partial thyroidectomy Hx of cardiac catheterization H/O meniscectomy of right knee H/O spinal fusion Family History Mother No problems noted. Father No problems noted. Social History Household Members: Spouse Housing: House Are you a primary post acute care nurse practitioner to a significant other at home: No Do you presently have visiting nurse or other home services: No Alcohol intake: never Patient Tobacco Use Status: Never used Tobacco service: No Current occupational status: disabled Review of Systems Const Details: - Neurological: Reports improvement in speech and swallowing post-treatment. - Gastrointestinal: Reports swallowing improvement. - Respiratory: Reports chronic cough, benzonatate used as needed. - Cardiovascular: Denies any new cardiovascular symptoms. Hypertension managed with medication. - Endocrine: Denies hypoglycemic events. Type 2 diabetes mellitus managed with medication. - Ophthalmologic: Glaucoma management ongoing. Physical Exam Neuro Other: Mental Status: Alert and oriented to person, place, and time. Normal attention. Normal spontaneous speech, fluency, and comprehension. Cranial Nerves: CN II: Visual cristina full to confrontation, visual acuity intact. CN III, IV, : Pupils equal, round, reactive to light and accommodation. Extraocular movements are normal. CN V: Facial sensation is normal. CN VII: Facial movements symmetrical. CN VIII: Hearing intact to bedside conversation is normal. CN IX, X: Palate elevates symmetrically. CN XI: Shoulder shrug and head turn symmetrical. CN XII: Tongue midline without atrophy or fasciculations. Extrapyramidal: Full facial expressions and blinking. No rigidity. Movements are appropriate with no tremor or abnormality. Speech: Normal; no dysarthria or tremor. Assessment & Plan Assessment & Plan (1) Myasthenia gravis: Comment: ACR ABs at [facility] in August 2015: all three elevated. MRI brain WO at [facility] in 2024: Mild small vessel ischemic disease CTA chest at [facility] in 2022: [place] NCV/EMG LE 09/12/15 BILATERAL LOWER LUMBAR RADICULOPATHY. MODERATELY SEVERE A XONAL SENSORY AND MOTOR PERIPHERAL NEUROPATHY. 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 MRI brain WO at [facility] in Feb 2015: OK CT chest at [facility] in Sep 2015: three lung nodules, probably granulomatous, thymus is ok. Code(s): G70.00 - Myasthenia gravis without (acute) exacerbation Category: Medical Plan Impression: Myasthenia gravis, antibody positive, now better. Rec: Prednisone 5mg 3 a day until Nov 29. Starting Nov 30, take 5mg, 2 a day and continue it until Dec 31. If all ok, starting Jan 01, start taking 5mg tab, 1 a day. Pyridostigmine 60mg 1 qid Azathiprine 50mg tid. I will his CBC to adjust the dose Folic acid 1mg a day IVIG infusion can still be used in case of exacerbation. He was also educated about possibility of using new biological drugs. As far as plasmapheresis was concerned, he was not inclined for that type of treatment and also it was logistically difficult to do. Orders: Orders Complete Blood Count Auto Diff Today G70.00 - Myasthenia gravis without (acute) exacerbation Coding Level of Care Code Est Pt Level 5 (03939) Diagnoses Myasthenia gravis G70.00
--- OUTSIDE RECORDS SUMMARY | 2024-11-14 12:40 | XMS_ITS | Encounter Summary ---
Author Organization [employer] Address [address] [place] [address] Care Team Providers Care Global Compensation Director Name Role Phone Christopher Wang MD Primary Care Provider [phone] Reason for Visit * Reason Comments Med Refill Encounter Details Date Type Department Care Team ([facility] st Contact Info) Description 04/07/2022 Refill [facility] CHC MED & PEDS [address] [place], [place] [phone] Christopher Wang MD [address] [place] [address] Primary hypertension (Primary Dx); Type 2 diabetes mellitus without complication, without long-term current use of insulin ([facility]); Vitamin B12 deficiency Social History Tobacco [...] Care Team (Late st Contact Info) Description 11/18/2024 8:00 AM EDT Office Visit [facility] CHC ADULT DENTAL [address] [place] [address] Wayne Webb, NATY [address] [place] [address] documented as of this encounter Visit Diagnoses Diagnosis Primary hypertension- Primary Unspecified essential hypertension Type 2 diabetes mellitus without complication, without long-term current use of insulin (HCC) Vitamin B12 deficiency Other B-complex deficiencies documented in this encounter Additional Health Concerns Assessment Noted Time PHQ-9 Depression Total Score: 0 03/04/19 23 9:18 AM EST documented as of this encounter Care Teams Global Compensation Director Relationship Specialty Start Date End Date Christopher Wang MD [address] [place] [address] PCP - General Internal Medicine 08/23/19 documented as of this encounter
--- OUTSIDE RECORDS SUMMARY | 2024-11-14 12:40 | XMS_ITS | Encounter Summary ---
Author Organization [employer] Address [address] [place] [address] Care Team Providers Care Slicing Machine Operator Name Role Phone Christopher Wang MD Primary Care Provider [phone] Reason for Visit * Reason Comments Med Refill Encounter Details Date Type Department Care Team ([facility] st Contact Info) Description 11/14/2024 Refill [facility] CHC MED & PEDS [address] [place], [place] [phone] Christopher Wang MD [address] [place] [address] Peripheral nerve disease Social History Tobacco Use Types Packs/Day Years [...] Description 11/18/2024 8:00 AM EDT Office Visit [facility] ADULT DENTAL [address] [place] [address] Wayne Webb DDS [address] [place] [address] documented as of this encounter Visit Diagnoses Diagnosis Peripheral nerve disease Mononeuritis of unspecified site documented in this encounter Additional Health Concerns Assessment Noted Time PHQ-9 Depression Total Score: 10 025 3:14 PM EDT documented as of this encounter Care Teams Slicing Machine Operator Relationship Specialty Start Date End Date Christopher Wang MD [address] [place] [address] PCP - General Internal Medicine 08/23/19 documented as of this encounter
--- OUTSIDE RECORDS SUMMARY | 2024-11-14 12:40 | XMS_ITS | Encounter Summary ---
Author Organization [employer] Address [address] [place] [address] 7 [place] [address] Care Team Providers Care Economic Development Specialist Name Role Phone Christopher Wang MD Primary Care Provider [phone] Reason for Visit * Reason Onset Date Comments Appointment 04/14/2022 Encounter Details Date Type Department Care Team (Late st Contact Info) Description 04/14/2022 Telephone [facility] ADULT DENTAL [address] [place] [address] Ronal Andrade, DMD [address] [place] [address] Appointment Social History Tobacco Use Types Packs/Day [...] surgery prior to impression for partials. DR Yuenally signed by Belinda Hermosillo at 04/14/2022 9:11 AM EST documented in this encounter Plan of Treatment Upcoming Encounters Date Type Department Care Team (Late st Contact Info) Description 11/18/2024 8:00 AM EDT Office Visit [facility] ADULT DENTAL [address] [place] [address] Wayne Webb DDS [address] [place] [address] documented as of this encounter Visit Diagnoses Not on filedocumented in this encounter Additional Health Concerns Assessment Noted Time PHQ-9 Depression Total Score: 0 03/04/19 23 9:18 AM EST documented as of this encounter Care Teams Economic Development Specialist Relationship Specialty Start Date End Date Christopher Wang MD [address] [place] [address] PCP - General Internal Medicine 08/23/19 documented as of this encounter
--- OUTSIDE RECORDS SUMMARY | 2024-11-14 12:40 | XMS_ITS | Encounter Summary ---
Author Organization [employer] Address [address] [address] Care Team Providers Care Cad Engineer Name Role Phone Christopher Wang MD Primary Care Provider [phone] Reason for Visit * Reason Onset Date Comments Referral 04/29/2024 Encounter Details Date Type Department Care Team ([facility] st Contact Info) Description 04/29/2024 Telephone [facility] MEDICINE [address] [place] [address] Christopher Wang MD [address] [place] [address] Referral Social History Tobacco Use Types Packs/Day [...] and audiology referral. Pt changed insurance from [facility] to [employer]. Advised pt to call insurance to see in they cover appointment with [facility] where referral was sent.Also stated to pt to call [facility] if insurance states they will cover [...] [facility] [address] [place] [address] Wayne Webb DDS 230 [facility] [place] [address] documented as of this encounter Visit Diagnoses Not on filedocumented in this encounter Additional Health Concerns Assessment Noted Time PHQ-9 Depression Total Score: 1 12/24/19 24 1:52 PM EST documented as of this encounter Care Teams Cad Engineer Relationship Specialty Start Date End Date Christopher Wang MD [address] [place] [address] PCP - General Internal Medicine 08/23/19 documented as of this encounter
--- OUTSIDE RECORDS SUMMARY | 2024-11-14 12:41 | XMS_ITS | Encounter Summary ---
Author Organization [facility] Address [address] [place] [address] Care Team Providers Care Plumbing Instructor Name Role Phone Christopher Wang MD Primary Care Provider [phone] Encounter Details Date Type Department Care Team (Late st Contact Info) Description 06/28/2024 Lab Requisition [facility] - Main Lab [address] [place] [address] Steve Miner MD [address] [address] Nodular prostate without lower urinary [...] LAB CHEMISTRY METHOD 06/28/2024 2:10 PM EDT [facility]) [facility] Blood Venous blood specimen / Unknown 06/28/2024 9:09 AM EDT 06/28/2024 12:51 PM EDT Narrative [facility] - 06/28/2024 2:10 PM EDT The Siemens Advia Centaur Chemiluminescent Immunoassay is used. Results obtained with different assay methods or kits cannot be used interchangeably. Results cannot be interpreted as absolute evidence of the presence or absence of malignant disease. us Steve Miner MD LAB BLOOD ORDERABLES Final Resul t [facility] [address] [place] [address], documented in this encounter Visit Diagnoses Diagnosis Nodular prostate without lower urinary tract symptoms documented in this encounter Care Teams Plumbing Instructor Relationship Specialty Start Date End Date Christopher Wang MD [address] [place] [address] PCP - General 04/28/14 documented as of this encounter
--- OUTSIDE RECORDS SUMMARY | 2024-11-14 12:41 | XMS_ITS | Encounter Summary ---
Author Organization [employer] Address [address] [place] [address] 7 [place] [address] Care Team Providers Care Eye Physician Name Role Phone Christopher Wang MD Primary Care Provider [phone] Encounter Details Date Type Department Care Team ([facility] st Contact Info) Description 07/12/2024 Orders Only [facility] CHC MED & PEDS [address] [place], [place] [phone] Christopher Wang MD [address] [place] [address] Social History Tobacco Use Types Packs/Day Years [...] 11/18/2024 8:00 AM EDT Office Visit [facility] ADULT DENTAL [address] [place] [address] Wayne Webb, CHADS [address] [place] [address] documented as of this encounter Visit Diagnoses Not on filedocumented in this encounter Additional Health Concerns Assessment Noted Time PHQ-9 Depression Total Score: 1 12/24/19 24 1:52 PM EST documented as of this encounter Care Teams Eye Physician Relationship Specialty Start Date End Date Christopher Wang MD [address] [place] [address] PCP - General Internal Medicine 08/23/19 documented as of this encounter
--- OUTSIDE RECORDS SUMMARY | 2024-11-14 12:41 | XMS_ITS | Encounter Summary ---
Author Organization [employer] Address [address] [address] Care Team Providers Care Water Treatment Plant Mechanic Name Role Phone Christopher Wang MD Primary Care Provider [phone] Reason for Visit * Reason Onset Date Comments Hospital Follow-up 10/03/2024 Encounter Details Date Type Department Care Team ([facility] st Contact Info) Description 10/03/2024 Telephone [facility] MEDICINE [address] [place] [address] Christopher Wang MD [address] [place] [address] Hospital Follow-up Social History Tobacco Use Types [...] from pt requesting a HDF appt. Hospital: [facility] Date of admission: 09/24/24 Discharge date: 10/02/24 Reason: unable to swallow *Send message to [place] Clinical Care Coordinators documented in this encounter Plan of Treatment Upcoming Encounters Date Type Department Care Team (Late st Contact Info) Description 11/18/2024 8:00 AM EDT Office Visit [facility] CHC ADULT DENTAL [address] [place] [address] Wayne Webb DDS [address] [place] [address] documented as of this encounter Visit Diagnoses Not on filedocumented in this encounter Additional Health Concerns Assessment Noted Time PHQ-9 Depression Total Score: 10 025 3:14 PM EDT documented as of this encounter Care Teams Water Treatment Plant Mechanic Relationship Specialty Start Date End Date Christopher Wang MD [address] [place] [address] PCP - General Internal Medicine 08/23/19 documented as of this encounter
--- OUTSIDE RECORDS SUMMARY | 2024-11-14 12:41 | XMS_ITS | Encounter Summary ---
Author Organization [employer] Address [address] [place] [address] 7 [place] [address] Care Team Providers Care Reimbursement Consultant Name Role Phone Christopher Wang MD Primary Care Provider [phone] Reason for Referral * Consultation (Routine) - Closed Specialty Diagnoses / Procedures Referred By Contac t Referred To Contact Audiology Diagnoses Subjective hearing loss Terri Medellin MD [address] [place] [address] Phone: tel: fax: [facility] Audiology [address] Floor [place], [place] Phone: tel: fax: Referral ID Status Reason Start Date Expiration Date V isits Requested Visits Authorized [id number] Closed Specialty Services Required 11/12/2023 11/11/2024 1 1 Encounter Details Date Type Department Care Team (Late st Contact Info) Description 11/12/2023 Orders Only [facility] CHC MED & PEDS [address] [place], [place] [phone] Terri Medellin MD [address] [place], [place] [phone] Subjective hearing loss (Primary Dx) Social History [...] AM EDT Office Visit [facility] ADULT DENTAL [address] [place] [address] Wayne Webb DDS [address] [place] [address] Scheduled Referrals Name Type Priority Associated Diagnoses Orde r Schedule Referral to Audiology Outpatient Referral Routine Subjective hearing loss Expected: 11/12/2023 (Approximate), Expires: 11/11/2024 documented as of this encounter Visit Diagnoses Diagnosis Subjective hearing loss- Primary documented in this encounter Additional Health Concerns Assessment Noted Time PHQ-9 Depression Total Score: 0 03/04/19 23 9:18 AM EST documented as of this encounter Care Teams Reimbursement Consultant Relationship Specialty Start Date End Date Christopher Wang MD [address] [place] [address] PCP - General Internal Medicine 08/23/19 documented as of this encounter
--- OUTSIDE RECORDS SUMMARY | 2024-11-14 12:41 | XMS_ITS | Encounter Summary ---
Author Organization [employer] Address [address] [place] [address] [address] Care Team Providers Care Mat Cutter Name Role Phone Christopher Wang MD Primary Care Provider [phone] Encounter Details Date Type Department Care Team (Late st Contact Info) Description 10/14/2022 Abstract [facility] MED & PEDS [address] [place] [address] Jordyn Ham [place] Social History Tobacco Use [...] Description 11/18/2024 8:00 AM EDT Office Visit [facility] ADULT DENTAL [address] [place] [address] Wayne Webb DDS [address] [place] [address] documented as of this encounter Visit Diagnoses Not on filedocumented in this encounter Additional Health Concerns Assessment Noted Time PHQ-9 Depression Total Score: 0 03/04/19 23 9:18 AM EST documented as of this encounter Care Teams Mat Cutter Relationship Specialty Start Date End Date Christopher Wang MD [address] [place] [address] PCP - General Internal Medicine 08/23/19 documented as of this encounter
--- OUTSIDE RECORDS SUMMARY | 2024-11-14 12:41 | XMS_ITS | Clinical Summary ---
Author Organization [facility] Address [address] [place] [address] Phone Care Team Providers Care Wool Hat Hydraulicker Name Role Phone Christopher Wang MD Primary Care Provider [phone] Allergies No known active allergies Medications acetaminophen [...] Tablet by mouth at bedtime. Active Immunizations Immunization Administration Dates Next Due Moderna SARS-CoV-2 COVID-19, [...] 3 - 19+ 3-dose series) 09/24/2023 08/27/2023 Depression Screening 02/17/2024 Diabetes: Annual Urine Albumin-Creatinine Ratio (uACR) 05/31/2024 COVID-19 Vaccine ( season) 2024 04/18/2022, 01/15/2021, 05/16/2020, Additional history exists Influenza Vaccine (#1) 2024 [...] Procedure Name Priority Date/Time Associated Diagnosis Comments HM ANNUAL BMP BLOOD TEST Routine 11/10/2023 LIPID PANEL Routine 02/03/2023 HEMOGLOBIN A1C Routine 09/10/2022 HEPATITIS C SCREENING Routine 2021 from Last 3 Months or Most Recently Relevant to Health Maintenance Results * Annual BMP Blood Test (11/10/2023) Pathologist [facility] Annual BMP Blood Test Abstracted Result [facility] Provider HEALTH MAINTENANCE Final Result * Lipid panel (02/03/2023) [facility] Triglycerides 0 mg/dL Comment:No interpretation Cholesterol 0 mg/dL Comment:No interpretation HDL 0 mg/dL Comment:No interpretation LDL Cholesterol 0 mg/dL Comment:No interpretation Blood Venous blood specimen / Unknown Result [facility] Provider LAB BLOOD ORDERABLES Elizabeth l Result * Hemoglobin A1c (09/10/2022) [facility] Hemoglobin A1C 0.0 % Comment:No interpretation Blood Venous blood specimen / Unknown Result [facility] Provider LAB BLOOD ORDERABLES Elizabeth l Result * Hepatitis C Screening (2021) [facility] Hepatitis C Screening Abstracted [facility] Provider HEALTH MAINTENANCE Final Result from Last 3 Months or Most Recently Relevant to Health Maintenance Insurance [place] Member Subscriber Plan / Payer (Ef fective 2024-Present) Name:BLAINE DOBBS Relation to Subscriber:Self Name:Blaine Do Payer ID:[id number] Group ID:Not on file Type:Not on file [facility] [place] ATTN:CLAIMS [address] [place] [address] [facility] Care Teams Wool Hat Hydraulicker Relationship Specialty Start Date End Date Christopher Wang MD [address] [place] [address] PCP - General 04/28/14
--- OUTSIDE RECORDS SUMMARY | 2024-11-14 12:41 | XMS_ITS | Encounter Summary ---
Author Organization [employer] Address [address] [place] [id number] Care Team Providers Care Cable Engineer Outside Plant Name Role Phone Christopher Wang MD Primary Care Provider [phone] Reason for Visit * Reason Onset Date Comments Med Refill 10/22/2023 Encounter Details Date Type Department Care Team ([facility] st Contact Info) Description 10/22/2023 Telephone [facility] [address] [place] [address] Christopher Wang MD [address] [place] [address] Med Refill Social History Tobacco Use Types [...] 10 MG tablet To be sent to: [facility] - [place], [place] - [address] documented in this encounter Plan of Treatment Upcoming Encounters Date Type Department Care Team (Late st Contact Info) Description 11/18/2024 8:00 AM EDT Office Visit [facility] [address] [place] [address] Wayne Webb DDS [address] [place] [address] documented as of this encounter Visit Diagnoses Not on filedocumented in this encounter Additional Health Concerns Assessment Noted Time PHQ-9 Depression Total Score: 0 03/04/19 23 9:18 AM EST documented as of this encounter Care Teams Cable Engineer Outside Plant Relationship Specialty Start Date End Date Christopher Wang MD [address] [place] [address] PCP - General Internal Medicine 08/23/19 documented as of this encounter
--- OUTSIDE RECORDS SUMMARY | 2024-11-14 12:41 | XMS_ITS | Encounter Summary ---
Author Organization [employer] Address [address] [place] [address] 7 [place] [address] Care Team Providers Care Biophysics Teacher Name Role Phone Christopher Wang MD Primary Care Provider [phone] Encounter Details Date Type Department Care Team ([facility] st Contact Info) Description 10/23/[address] [facility] MED & PEDS [address] [place], [place] [phone] Christopher Wang MD [address] [place] [address] Bloating symptom Social History Tobacco Use Types [...] Description 11/18/2024 8:00 AM EDT Office Visit [facility] [address] [place] [address] Wayne Webb DDS [address] [place] [address] documented as of this encounter Visit Diagnoses Diagnosis Bloating symptom Flatulence, eructation, and gas pain documented in this encounter Additional Health Concerns Assessment Noted Time PHQ-9 Depression Total Score: 0 03/04/19 23 9:18 AM EST documented as of this encounter Care Teams Biophysics Teacher Relationship Specialty Start Date End Date Christopher Wang MD [address] [place] [address] PCP - General Internal Medicine 08/23/19 documented as of this encounter
--- OUTSIDE RECORDS SUMMARY | 2024-11-14 12:41 | XMS_ITS | Encounter Summary ---
Author Organization [employer] Address [address] [place] [address] 7 [place] [address] Care Team Providers Care Audit Practice Intern Name Role Phone Christopher Wang MD Primary Care Provider [phone] Encounter Details Date Type Department Care Team ([facility] st Contact Info) Description 09/29/2023 Orders Only [facility] MED [facility] PEDS [address] [place], [place] [phone] Christopher Wang MD [address] [place] [address] Gastroesophageal reflux disease, unspecified whether esophagitis present [...] 8:00 AM EDT Office Visit [facility] [address] [place] [address] Wayne Webb, NATY [address] [place] [address] documented as of this encounter Visit Diagnoses Diagnosis Gastroesophageal reflux disease, unspecified whether esophagitis present- Primary documented in this encounter Additional Health Concerns Assessment Noted Time PHQ-9 Depression Total Score: 0 03/04/19 23 9:18 AM EST documented as of this encounter Care Teams Audit Practice Intern Relationship Specialty Start Date End Date Christopher Wang MD [address] [place] [address] PCP - General Internal Medicine 08/23/19 documented as of this encounter
--- OUTSIDE RECORDS SUMMARY | 2024-11-14 12:41 | XMS_ITS | Encounter Summary ---
Author Organization [employer] Address [address] [place] [address] Care Team Providers Care Registered Dietitian Name Role Phone Christopher Wang MD Primary Care Provider [phone] Reason for Visit * Reason Onset Date Comments Med Refill 07/13/2024 Encounter Details Date Type Department Care Team ([facility] st Contact Info) Description 07/13/2024 Refill [facility] & PEDS [address] [place] [address] Christopher Wang MD [address] [place] [address] Type 2 diabetes mellitus without complication, without long-term current use of insulin ([facility]) Social History Tobacco Use Types [...] Upcoming Encounters Date Type Department Care Team ([facility] st Contact Info) Description 11/18/2024 8:00 AM EDT Office Visit [facility] [address] [place] [address] Wayne Webb DDS [address] [place] [address] documented as of this encounter Visit Diagnoses Diagnosis Type 2 diabetes mellitus without complication, without long-term current use of insulin (HCC) documented in this encounter Additional Health Concerns Assessment Noted Time PHQ-9 Depression Total Score: 1 12/24/19 24 1:52 PM EST documented as of this encounter Care Teams Registered Dietitian Relationship Specialty Start Date End Date Christopher Wang MD [address] [place] [address] PCP - General Internal Medicine 08/23/19 documented as of this encounter
--- OUTSIDE RECORDS SUMMARY | 2024-11-14 12:41 | XMS_ITS | Encounter Summary ---
Author Organization [employer] Address [address] [place] [address] Care Team Providers Care Program Counselor Name Role Phone Christopher Wang MD Primary Care Provider [phone] Reason for Visit * Reason Comments Med Refill Encounter Details Date Type Department Care Team ([facility] st Contact Info) Description 06/14/2024 Refill [facility] [address] [place] [address] Christopher Wang MD [address] [place] [address] Social History Tobacco Use Types Packs/Day Years [...] Description 11/18/2024 8:00 AM EDT Office Visit [facility] ADULT D[facility] [address] [place] [address] Wayne Webb, CHADS [address] [place] [address] documented as of this encounter Visit Diagnoses Not on filedocumented in this encounter Additional Health Concerns Assessment Noted Time PHQ-9 Depression Total Score: 1 12/24/19 24 1:52 PM EST documented as of this encounter Care Teams Program Counselor Relationship Specialty Start Date End Date Christopher Wang MD [address] [place] [address] PCP - General Internal Medicine 08/23/19 documented as of this encounter
--- OUTSIDE RECORDS SUMMARY | 2024-11-14 12:41 | XMS_ITS | Clinical Summary ---
Author Organization [employer] Address [address] [place] [address] 7 [place] [address] Care Team Providers Care Concrete Smoother Name Role Phone Christopher Wang MD Primary Care Provider [phone] Allergies Active Allergy Reactions Criticality Noted Date Comments Ciprofloxacin 10/10/2024 Medications Acetaminophen Extra Strength 500 MG tablet TAKE ONE TABLET EVERY 8 HOURS NEEDED 022 Active ProAir HFA 108 (90 Base) MCG/ACT inhaler INHALE TWO puffs FOUR TIMES DAILY 022 Active Simbrinza 1-0.2 % suspension PLACE ONE DROP IN EACH EYE TWICE DAILY 022 Active Lancets Misc. miscIndications:Ty pe 2 diabetes mellitus without complication, without long-term current use of insulin (HCC) To use 2 times a day 100 [...] 90 tablet 3 024 Active Continuous Glucose Windsurfing Instructor (FreeStyle Dee Dee 2 [place]) deviceIndications: Type 2 diabetes mellitus without complication, without long-term current use of insulin (HCC) Scan sensor every 8 hours 1 each 025 Active Continuous Glucose Sensor (FreeStyle Dee Dee 2 Sensor) miscIndications:Ty pe 2 diabetes mellitus without complication, without long-term current use of insulin ([facility]) Apply 1 sensor every 14 days 2 each Active glucose blood test stripIndications:T ype 2 diabetes mellitus without complication, without long-term current use of insulin ([facility]) To use once a day 100 each [...] at bedtime for mild pain. 28 g 025 2025 Active hydroCHLOROthiazid e (Microzide) 12.5 MG capsuleIndications :Primary hypertension TAKE ONE CAPSULE EVERY MORNING 30 capsule Active betamethasone valerate (Valisone) 0.1 % ointmentIndication s:Papular lichenification Apply topically if needed in the morning and at bedtime (dryness). 45 g Active Calcium Carb-Cholecalcifer ol 600-10 MG-MCG tablet TAKE ONE TABLET IN THE MORNING AND EVENING 180 tablet Active Diclofenac Sodium (Voltaren) 1 % gel Use topical BID 100 g Active omeprazole (PriLOSEC) [address] capsuleIndications :Gastro-esophageal reflux disease without esophagitis TAKE TWO CAPSULES EVERY MORNING 60 capsule Active Additional Information Patient not taking.Reported on 09/06/2024 cyanocobalamin (Vitamin B-12) 1000 MCG tabletIndications: Vitamin B12 deficiency TAKE ONE TABLET EVERY MORNING 90 tablet 1 Active metFORMIN XR (Glucophage-XR) 500 MG 24 hr tabletIndications: Type 2 diabetes mellitus without complication, without long-term current use of insulin ([facility]) TAKE ONE TABLET EVERY EVENING 90 tablet 1 Active latanoprost (Xalatan) 0.005 % ophthalmic solution Administer 1 drop into both eyes at bedtime. Active Vitamins-Lipotropi cs (B Complex Formula 1, Lipotrop,) tablet Take 1 tablet by mouth in the morning. Active meloxicam (Mobic) 15 MG tablet Take 1 tablet by mouth Once per day. Active pyridostigmine (Mestinon) 60 MG tablet Take 1.5 tablets (90 mg) by mouth 4 times daily. Active predniSONE (Deltasone) 5 MG tablet Take 5 mg by mouth in the morning and 5 mg at noon and 5 mg in the evening and 5 mg before bedtime. Active azaTHIOprine (Imuran) 50 MG tablet Take 1 tablet (50 mg) by mouth 3 times daily. Active FOLIC ACID PO Take 1 tablet by mouth Once per day. Active cholecalciferol (Vitamin D-3) 25 MCG tablet TAKE ONE TABLET DAILY AT NOON 90 tablet Active hydroCHLOROthiazid e 12.5 MG tablet TAKE ONE TABLET EVERY MORNING 30 tablet Active azaTHIOprine (Imuran) 50 MG tablet Take 1 tablet by mouth 2 times daily. 2024 Discontinued(D ose adjustment) pyridostigmine (Mestinon) 60 MG tablet Take 1 tablet by mouth in the morning and 1 tablet at noon and 1 tablet in the evening. 2024 Discontinued(D ose adjustment) senna (Senokot) 8.6 MG tablet TAKE ONE TABLET BY MOUTH AT BEDTIME NEEDED FOR CONSTIPATION 2024 Discontinued(D iscontinued by another clinician) gabapentin (Neurontin) 800 MG tabletIndications: Peripheral nerve disease TAKE ONE TABLET THREE TIME DAILY IN THE MORNING, AT NOON, AND IN THE EVENING 90 tablet 5 025 2024 Discontinued(D iscontinued by another clinician) cholecalciferol (Vitamin D-3) 25 MCG tablet TAKE ONE TABLET DAILY AT NOON 90 tablet 2024 Discontinued predniSONE (Deltasone) 10 MG tablet Take 1 tablet by mouth 2 times daily. 025 2024 pyridostigmine (Mestinon) 60 MG tablet Take 1.5 tablets (90 mg) by mouth in the morning and 1.5 tablets (90 mg) at noon and 1.5 tablets (90 mg) in the evening. 025 2024 Discontinued(D ose adjustment) Active Problems Problem Noted Date Diagnosed Date [...] Encounters Date Type Department Care Team Description 11/14/2024 Refill [facility] [address] [place] [address] Christopher Wang MD Peripheral nerve disease 10/28/2024 1:30 PM EDT Office Visit [facility] [address] [place] [address] Christopher Wang MD Primary hypertension (Primary Dx); Myasthenia gravis ([facility]/HCC); Type 2 diabetes mellitus without complication, without long-term current use of insulin ([facility]) 10/28/2024 Travel 10/27/2024 Refill [facility] [address] [place] [address] Christopher Wang MD 10/27/2024 Telephone [facility] [address] [place] [address] Christopher Wang MD Chart Prep 10/25/2024 Patient Outreach [facility] [address] [place] [address] Christopher Wang MD Transition Of Care (Tcm) (HDF- scheduled) 10/21/2024 Telephone [facility] [address] [place] [address] Christopher Wang MD Appointment Request 10/21/2024 Telephone [facility] [address] [place] [address] Christopher Wang MD 10/19/[address] [address] Christopher Wang MD call back needed 10/13/2024 Telephone [facility] [address] [place] [address] Christopher Wang MD Call Back Request 10/10/2024 1:15 PM EDT Office Visit [facility] [address] [place] [address] Christopher Wang MD Myasthenia gravis ([facility]) (Primary Dx); Other dysphagia; Normocytic anemia; Primary hypertension 10/10/2024 Orders Only GENERIC EXTERNAL DATA DEPARTMENT Provider, Generic External Data 10/10/2024 Travel 10/07/2024 Refill [facility] [address] [place] [address] Christopher Wang MD Type 2 diabetes mellitus without complication, without long-term current use of insulin ([facility]) 10/06/2024 Telephone [facility] [address] [place] [address] Christopher Wang MD Results 10/03/2024 Patient Outreach [address] [address] Christopher Wang MD Transition Of Care (Tcm) (HDF- Scheduled ) 10/03/[address] [address] Christopher Wang MD Hospital Follow-up 09/27/[address] [address] Christopher Wang MD 09/24/2024 Orders Only GENERIC EXTERNAL DATA DEPARTMENT Provider, Generic External Data 09/23/2024 3:15 PM EDT Office Visit [facility] [address] [place] [address] Christopher Wang MD Other dysphagia (Primary Dx); Dribbling following urination; Primary hypertension; Type 2 diabetes mellitus without complication, without long-term current use of insulin ([facility]); Dietary counseling; Exercise counseling; Class 2 severe obesity due to excess calories with serious comorbidity and body mass index (BMI) of 38.0 to 38.9 in adult ([facility]) 09/23/2024 Travel 09/22/2024 Travel 09/19/2024 Telephone [facility] [address] [place] [address] Christopher Wang MD ER Follow-up 09/15/2024 Results Follow-Up [facility] [address] [place] [address] Ifrah Christianson MD POCT urinalysis dipstick manually resulted, POCT COVID-19 Ag Dewitt ID NOW, Culture, Urine, Routine, Additional followed-up results: 4 09/12/2024 Refill [facility] [address] [place] [address] Christopher Wang MD 09/07/2024 Orders Only GENERIC EXTERNAL DATA DEPARTMENT Provider, Generic External Data 09/07/2024 Refill [facility] [address] [place] [address] Christopher Wang MD Vitamin B12 deficiency 09/06/2024 9:00 AM EDT Office Visit [facility] [address] [place] [address] Wayne Webb DDS 09/06/2024 Telephone [facility] [address] [place] [address] Christopher Wang MD 09/05/2024 Travel 09/03/2024 Refill [facility] [address] [place] [address] Christopher Wang MD Gastro-esophageal reflux disease without esophagitis; Peripheral nerve disease 08/29/2024 10:00 AM EDT Office Visit [facility] [address] [place] [address] Ifrah Christianson MD Urinary tract infection with hematuria, site unspecified (Primary Dx) 08/29/2024 Travel 08/17/2024 10:15 AM EDT Office Visit [facility] [address] [place] [address] Claudette Knight MD Sprain of left sternoclavicular joint, initial encounter (Primary Dx); Type 2 diabetes mellitus without complication, without long-term current use of insulin ([facility]) 08/17/2024 Travel 08/15/2024 Telephone [facility] [address] [place] [address] Christopher Wang MD Nurse Triage from Last 3 Months Immunizations Immunization Administration [...] Sign Reading Time Taken Comments Blood Pressure 129/75 10/28/2024 1:16 PM EDT Pulse 76 10/28/2024 1:16 PM EDT Temperature 36.8 C (98.2 F) 09/23/2024 3:05 PM EDT Respiratory Rate 20 10/28/2024 1:16 PM EDT Oxygen Saturation 99% 10/28/2024 1:16 PM EDT Inhaled Oxygen Concentration - - Weight 118 kg (260 lb) 10/28/2024 1:16 PM EDT Height 185.4 cm (6' 1 ) 10/28/2024 1:16 PM EDT Body Mass Index 34.3 10/28/2024 1:16 PM EDT Plan of Treatment Upcoming Encounters Date Type Department Care Team (Late st Contact Info) Description 11/18/2024 8:00 AM EDT Office Visit [facility] [address] [place] [address] Wayne Webb, DDS [address] [place] [address] Health Maintenance Due Date Last Done Comments CT Colonography 1957 FIT DNA/Cologuard 1957 FIT 1957 FOBT 1957 Sigmoidoscopy 1957 Hepatitis A Vaccines (1 of 2 - Risk 2-dose series) 1976 RSV Patients and Patients Aged 60 years or older (1 - Risk 60-74 years 1-dose series) 2017 Hepatitis B Vaccines (2 of 3 - Risk 3-dose series) 09/24/2023 08/27/2023 Dental Oral Exam 05/27/2024 11/26/2023, , 04/24/2014 Dental Prophylaxis 05/27/2024 11/26/2023, 12/30/2021 Eye Exam 08/11/2024 08/11/2022, 07/18, 08/11/2022, Additional history exists COVID-19 Vaccine ( season) 2024 04/18/2022, 01/15/2021, 05/16/2020, Additional history exists Influenza Vaccine (#1) 2024 , 12/09/2021, 11/16/2021, Additional history exists Diabetes: Foot Exam 11/08/2024 11/09/2023, 11/09/2023, 08/28/2022, Additional history exists Dental X-Ray: Bitewings 11/26/2024 11/26/19 24, 12/03/2021, 04/24/2014 Diabetes: Hemoglobin A1C 12/24/2024 025, [...] Procedure Name Priority Date/Time Associated Diagnosis Comments CBC WITH AUTO DIFFERENTIAL Routine 10/10/2024 2:15 PM EDT SED RATE BY MODIFIED WESTERGREN Routine 10/06/2024 [...] complication, without long-term current use of insulin ([facility]) URINALYSIS, COMPLETE, WITH REFLEX TO CULTURE Routine [...] complication, without long-term current use of insulin ([facility]) POCT GLYCATED HEMOGLOBIN, TOTAL Routine 06/23/2024 1:32 PM EDT Type 2 diabetes mellitus without complication, without long-term current use of insulin ([facility]) ALBUMIN, RANDOM URINE W/CREATININE Routine 04/11/2024 10:11 AM EST Type 2 diabetes mellitus without complication, without long-term current use of insulin ([facility]) LIPID PANEL, STANDARD Routine 04/11/2024 10:07 AM EST Type 2 diabetes mellitus without complication, without long-term current use of insulin ([facility]) PANORAMIC RADIOGRAPHIC IMAGE Routine 03/30/2024 9:00 AM [...] Recently Relevant to Health Maintenance Results * (ABNORMAL) CBC auto differential (10/10/2024 2:15 PM EDT) Only the most recent of4 resultswithin the time period is included. White Blood Count 12.0(H) 4.8 - 10.8 X10*3/uL [facility] Red Blood Count 3.18(L) 4.60 - 5.80 X10*6/uL [facility] Hemoglobin 10.1(L) 14.0 - 18.0 g/dl [facility] Hematocrit 29.7(L) 42.0 - 52.0 % [facility] Mean Corpuscular Volume 93.4 80.0 - 98.0 fL [facility] Mean Corpuscular Hemoglobin 31.8 27.0 - 33.0 pg [facility] Mean Corpuscular HGB Conc 34.0 31.0 - 36.0 g/dl [facility] Red Cell Distribution Width 21.3(H) 11.0 - 16.0 % [facility] Platelet Count 184 160 - 400 X10*3/uL [facility] Mean Platelet Volume 11.1 9.4 - 12.4 fL [facility] Neutrophils Percent Auto 82.8(H) 45 - 73 % [facility] Imm Gran Pct Auto 0.8(H) 0.0 - 0.4 % [facility] Lymphocytes Percent Auto 12.7(L) 20 - 40 % [facility] Monocytes Percent Auto 3.3 2 - 11 % [facility] Eosinophils Percent Auto 0.0 0 - 4 % [facility] Basophils Percent Auto 0.4 0 - 2 % [facility] NRBC Pct Auto 0.3(H) 0.0 - 0.2 /100WBC [facility] Neutrophils Absolute Auto 9.9(H) 2.0 - 8.3 x10*3/uL [facility] Imm Gran Abs Auto 0.09(H) 0.00 - 0.03 X10*3/uL [facility] Lymphocytes Absolute Auto 1.5 1.2 - 4.9 X10*3/uL [facility] Monocytes Absolute Auto 0.4 0.1 - 1.2 X10*3/uL [facility] Eosinophils Absolute Auto 0.0 0.0 - 0.4 X10*3/uL [facility] Basophils Absolute Auto 0.1 0.0 - 0.2 X10*3/uL [facility] NRBC Abs Auto 0.040(H) 0.0 - 0.012 X10*3/uL [facility] 10/10/2024 2:15 PM EDT 10/10/2024 5:21 PM EDT us Generic External Data Provider LAB BLOOD ORDERAB LES Final Result Performing Organization Address [facility]/ZIP Co de Phone Number [facility] [address] [place] [phone] * PSA, Total With Reflex to PSA, Free (10/06/2024 12:03 PM EDT) PSA,Total (Free>4and<10) 0.87 0.00 - 4.00 ng/mL [facility] Comment:A Free PSA was not [...] ORDERABLES Fin al Result Performing Organization Address [facility]/ZIP Co de Phone Number [facility] [address] [place] [phone] * (ABNORMAL) Sed Rate by Modified Westergren (10/06/2024 12:03 PM EDT) Only the most recent of2 resultswithin the time period is included. Erythrocyte Sedimentation Rate 91(H) 0 - 15 MM/HR [facility] Comment:Patients with polycy themia and many hemoglobin abnormalitiesmay have depressed sed rates whereas patients with anemiamay have elevated sed rates. Blood Venous blood specimen / Unknown 10/06/2024 12:03 PM EDT 10/06/2024 12:03 PM EDT Ifrah Christianson MD LAB BLOOD ORDERABLES Fin al Result Performing Organization Address [facility]/ZIP Co de Phone Number [facility] [address] [place] [phone] * (ABNORMAL) C-reactive Protein (10/06/2024 12:03 PM EDT) Only the most recent of2 resultswithin the time period is included. Pathologist [facility] C Reactive Protein 3.55(H) < or = 0.50 mg/dL [facility] Blood Venous blood specimen / Unknown 10/06/2024 12:03 PM EDT 10/06/2024 12:03 PM EDT us Christopher Wang MD LAB BLOOD ORDERABLES Final Result Performing Organization Address City/[facility] Co de Phone Number [facility] [address] [place] [phone] * High Sensitivity Troponin I (09/24/2024 6:40 PM EDT) Pathologist [facility] TROPONIN I HIGH SENSITIVITY <2.7 <3.5 - 35.0 ng/L [facility] Comment:The Dewitt high sens itivity Troponin-I results should beused in conjunction with other diagnostic information suchas ECG, clinical observations and information, and patientsymptoms to aid in the diagnosis of [place]. 09/24/2024 6:40 PM EDT 09/24/2024 6:44 PM EDT us Generic External Data Provider LAB BLOOD ORDERAB LES Final Result Performing Organization Address [facility] Co de Phone Number [facility] [address] [place] [phone] * Magnesium (09/24/2024 6:03 PM EDT) Magnesium 1.7 1.6 - 2.6 mg/dL [facility] 09/24/2024 6:03 PM EDT 09/24/2024 6:07 PM EDT Generic External Data Provider LAB BLOOD ORDERAB LES Final Result Performing Organization Address [facility] Phone Number [facility] [address] [place] [phone] * (ABNORMAL) Hepatic Function Panel (09/24/2024 6:03 PM EDT) Bilirubin, Total 0.7 0.0 - 1.0 mg/dL [facility] Bilirubin, Direct 0.3 0.0 - 0.5 mg/dL [facility] Aspartate Amino Transferase 33 5 - 37 U/L [facility] Alanine Aminotransferase 52(H) 0 - 40 U/L [facility] Total Protein 7.1 6.5 - 8.0 g/dL [facility] Albumin Level 4.2 3.5 - 5.0 g/dL [facility] Alkaline Phosphatase 69 39 - 117 U/L [facility] 09/24/2024 6:03 PM EDT 09/24/2024 6:07 PM EDT Generic External Data Provider LAB BLOOD ORDERAB LES Final Result Performing Organization Address [facility] Co de Phone Number [facility] [address] [place] [phone] * (ABNORMAL) Basic Metabolic Panel (09/24/2024 6:03 PM EDT) Sodium 141 135 - 145 mmol/L [facility] Potassium 3.8 3.3 - 5.1 mmol/L [facility] Chloride 106 96 - 108 mmol/L [facility] Carbon Dioxide 26 22 - 29 mmol/L [facility] Anion Gap 13 12 - 20 [facility] Urea Nitrogen (BUN) 17(H) 9 - 16 mg/dL [facility] Creatinine, Serum 0.78 0.5 - 1.4 mg/dL [facility] Creatinine Clr Calc Pharmacy 130.5 [facility] Comment:eGFR (calculated fro m the MDRD study equation) and eCrCl(calculated from the Cockcroft-Gault equation) are based ondifferent parameters and may not yield comparable results.If eCrCl result is absurd, please check patient'sheight/weight. Estimated Glomerular Filt Rate >60 [facility] Comment:Chronic Kidney Disea se: Estimated GFR < 60 mL/min/[id number] Kidney Disease: Estimated GFR < 15 mL/min/1.73m2 Glucose 116(H) 60 - 115 mg/dL [facility] Calcium 9.2 8.4 - 10.2 mg/dL [facility] 09/24/2024 6:03 PM EDT 09/24/2024 6:07 PM EDT us Generic External Data Provider LAB BLOOD ORDERAB LES Final Result [facility] [address] [place] [phone] * POCT Glucose (09/23/2024 3:55 PM EDT) Only the most recent of2 resultswithin the time period is included. Glucose Blood, POC 115 60 - 200 mg/dL QC [employer] Lot # [id number] Comment:random Lot# Expiration Date Blood Capillary blood specimen / Unknown 09/23/2024 3:55 PM EDT us Christopher Wang MD POINT OF CARE TEST ENTER/ED IT ORDERABLES Final Result * (ABNORMAL) Urinalysis, Complete, with Reflex to Culture (09/07/2024 6:48 PM EDT) Color Urine Yellow [facility] Appearance Urine Clear [facility] PH 5.5 5.0 - 9.0 [facility] Glucose Urine UA Negative Negative mg/dL [facility] Urine Blood Negative Negative [facility] Specific [place] - Urine 1.020 1.005 - 1.025 [facility] Urine Protein Negative Neg-Trace mg/dL [facility] Urine Ketones Negative Negative mg/dL [facility] Nitrite Urine Negative Negative [facility] Leukocyte Esterase Urine Trace(A) Negative [facility] RBC Urine 0-2 0 - 2 /HPF [facility] Urine WBC 0-5 0 - 5 /HPF [facility] Urine Squamous Epithelial Cell 0-2 0 - 2 /HPF [facility] Urine Bacteria Trace None Seen [facility] Hyaline Casts, Urine 0-2 0 - 2 /LPF [facility] 09/07/2024 6:48 PM EDT 09/07/2024 6:50 PM EDT Narrative [facility] - 09/07/2024 7:13 PM EDT [id number], Clean Catch us Generic External Data Provider LAB URINE ORDERAB LES Final Result [facility] [address] [place] [phone] * SARS-CoV-2 RNA, Influenza A/B, and RSV RNA, Ql NAAT (09/07/2024 5:35 PM EDT) Influenza A PCR NEGATIVE Negative [facility] Influenza B PCR NEGATIVE Negative [facility] Resp Syncy Virus RNA Qual PCR NEGATIVE Negative [facility] SARS COV2 PCR NEGATIVE Negative [facility] Comment:All test results mus t be [...] use by authorized laboratories.Testing performed on the 9+ GeneXpert utilizingreal-time RT-PCR.All SARS CoV2 and positive influenza A/B results arereported to [facility]. 09/07/2024 5:35 PM EDT 09/07/2024 5:39 PM EDT Generic External Data Provider LAB MICROBIOLOGY - GENERAL ORDERABLES Final Result [facility] [address] [place] [phone] * (ABNORMAL) Comprehensive Metabolic Panel (09/07/2024 5:35 PM EDT) Sodium 141 135 - 145 mmol/L [facility] Potassium 4.2 3.3 - 5.1 mmol/L [facility] Chloride 109(H) 96 - 108 mmol/L [facility] Carbon Dioxide 25 22 - 29 mmol/L [facility] Anion Gap 11(L) 12 - 20 [facility] Urea Nitrogen (BUN) 15 9 - 16 mg/dL [facility] Creatinine, Serum 0.86 0.5 - 1.4 mg/dL [facility] Creatinine Clr Calc Pharmacy 119.2 [facility] Comment:eGFR (calculated fro m the MDRD study equation) and eCrCl(calculated from the Cockcroft-Gault equation) are based ondifferent parameters and may not yield comparable results.If eCrCl result is absurd, please check patient'sheight/weight. Estimated Glomerular Filt Rate >60 [facility] Comment:Chronic Kidney Disea se: Estimated GFR < 60 mL/min/[id number] Kidney Disease: Estimated GFR < 15 mL/min/1.73m2 Glucose 119(H) 60 - 115 mg/dL [facility] Calcium 8.9 8.4 - 10.2 mg/dL [facility] Bilirubin, Total 0.5 0.0 - 1.0 mg/dL [facility] Aspartate Amino Transferase 31 5 - 37 U/L [facility] Alanine Aminotransferase 42(H) 0 - 40 U/L [facility] Total Protein 6.6 6.5 - 8.0 g/dL [facility] Albumin Level 4.0 3.5 - 5.0 g/dL [facility] Alkaline Phosphatase 68 39 - 117 U/L [facility] 09/07/2024 5:35 PM EDT 09/07/2024 5:39 PM EDT us Generic External Data Provider LAB BLOOD ORDERAB LES Final Result [facility] [address] [place] [phone] * POCT COVID-19 Ag Dewitt ID NOW (08/29/2024 9:53 AM EDT) Coronavirus Antigen PCR Negative Negative, Indeterminate, None Detected, Invalid, Specimen unsatisfactory for evaluation, Weakly Positive, 2+ Swab 08/29/2024 9:53 AM EDT us Ifrah Christianson MD POINT OF CARE TEST ENTER /EDIT ORDERABLES Final Result * (ABNORMAL) POCT urinalysis dipstick manually resulted (08/29/2024 9:51 AM EDT) Color, UA Yellow Comment:Dark Yellow Clarity, UA Clear Glucose, UA Trace Comment:100 mg/dl Bilirubin, UA Trace Comment:small Ketones, UA Negative Spec Grav, UA 1.025 Blood, UA Positive(A) Negative, None Detected Comment:trace-intact pH, UA 6.0 Protein, UA Trace Urobilinogen, UA 4.0 Leukocytes, UA Trace Negative, Rare, Trace Nitrite, UA Positive(A) Negative, None Detected Urine 08/29/2024 9:51 AM EDT Ifrah Christianson MD POINT OF CARE TEST ENTER /EDIT ORDERABLES Final Result * Chlamydia/N. Gonorrhoeae, PCR, Urine (08/29/2024 9:49 AM EDT) Pathologist [facility] PCR, Urine NOT DETECTED Not Detect. [facility] Comment:A not detected test result [...] NG PCR, Urine NOT DETECTED Not Detect. [facility] Comment:A not detected test result [...] 9:49 AM EDT 08/29/2024 2:22 PM EDT us Ifrah Christianson MD LAB URINE ORDERABLES Fin al Result Performing Organization Address [facility]/ZIP Co de Phone Number [facility] [address] [place] [phone] * Culture, Urine, Routine (08/29/2024 9:41 AM EDT) Urine Urine specimen obtained by clean catch procedure / Unknown 08/29/2024 9:41 AM EDT 08/29/2024 2:08 PM EDT Comment:UACC Narrative [facility] - 09/01/2024 7:39 AM EDT Escherichia coli Quant > 100,000 cfu/mL Escherichia coli: Ampicillin <=2(S) Escherichia coli: Cefazolin (Urine) <=1(S) Escherichia coli: Cefepime <=0.12(S) Escherichia coli: Ceftriaxone <=0.25(S) Escherichia coli: Ciprofloxacin >=4(R) Escherichia coli: Gentamicin <=1(S) Escherichia coli: Nitrofurantoin <=16(S) Escherichia coli: Trimethoprim/Sulfamethoxazole <=20(S) Specimen Source: Urine clean catch us Ifrah Christianson MD LAB MICROBIOLOGY - GENER AL ORDERABLES Final Result Performing Organization Address [facility] Co de Phone Number [facility] [address] [place] [phone] * POCT HGB A1C (06/23/2024 1:32 PM EDT) [facility] Signature Hemoglobin A1C 5.5 4.0 - 6.0 % QC Media Lot # [id number] Lot# Expiration Date Blood 06/23/2024 1:32 PM EDT us Christopher Wang MD POINT OF CARE TEST ENTER/ED IT ORDERABLES Final Result * Albumin, Random Urine W/Creatinine (04/11/2024 10:11 AM EST) Creatinine, Urine 77.42 mg/dL [facility] Microalbumin Urine 6.0 mg/L [facility] Microalbum Creatinine Ratio Ur 7.7 <30 ug/mg cr [facility] Comment:Albumin/Creatinine R atio Reference Ranges: Normal: < 30 ug/mg creatinine Microalbuminuria: 30 - 300 ug/mg creatinineClinical Albuminuria: > 300 ug/mg creatinine Urine (Urine, Random) 04/11/2024 10:11 AM EST 04/11/2024 2:41 PM EST us Christopher Wang MD LAB URINE ORDERABLES Final Result [facility] [address] [place] [phone] * Lipid Panel, Standard (04/11/2024 10:07 AM EST) Triglycerides 53 <150 mg/dL [facility] Comment:Desirable Triglyceri de: less than 150 mg/dLBorderline High Triglyceride 150-199 mg/dLHigh Triglyceride: 200-499 mg/dLVery High Triglyceride: greater than or equal to 5OO mg/dL Cholesterol 128 <200 mg/dL [facility] Comment:Desirable Cholestero l: less than 200 mg/dLBorderline High Cholesterol: 200-239 mg/dLHigh Cholesterol: greater than 239 mg/dL LDL Cholesterol Calculated 61 <100 mg/dL [facility] Comment:Desirable LDL: less than 100 mg/dLNear Optimal/Above Optimal LDL: 110- 129 mg/dLBorderline High LDL: 130-159 mg/dLHigh LDL: 160-189 mg/dLVery High LDL: greater than or equal to 190 mg/dL HDL Cholesterol 57 >40 mg/dL [facility] Comment:Desirable HDL: great er than 40 mg/dL Note: This HDL assay may give artificially low results in patients with liver disease. Blood Venous blood specimen / Unknown 04/11/2024 10:07 AM EST 04/11/2024 2:41 PM EST us Christopher Wang MD LAB BLOOD ORDERABLES Final Result [facility] [address] [place] [phone] * HEPATITIS C AB W/REFL TO HCV RNA, QN, PCR (2021 9:35 AM EDT) HEPATITIS C ANTIBODY NON-REACT [facility] NON-REACT [facility] INDEX 0.01 <1.00 [facility] Comment: HCV antibody was non-reactive. There is no laboratory evidence of HCV infection. In most cases, no further action is required. However, if recent HCV exposure is suspected, a test for HCV RNA (test code 82287) is suggested. For additional information please refer to http://education.[employer]/faq/RQJ88l7 (This link is being provided for informational/ educational purposes only.) 2021 9:35 AM EDT us Christopher Wang MD HISTORICAL/NON ORDERABLE LA BS Final Result [facility] [address] from Last 3 Months or Most Recently Relevant to Health Maintenance Insurance MEDICARE REPLACEMENT PPO [facility] MEDICAID STAND ADULT Care Teams Concrete Smoother Relationship Specialty Start Date End Date Christopher Wang MD [address] [place] [phone] PCP - General Internal Medicine 08/23/19
--- OUTSIDE RECORDS SUMMARY | 2024-11-14 12:41 | XMS_ITS | Encounter Summary ---
Author Organization [employer] Address [address] [facility] 7 [place] [address] Care Team Providers Care Welding Machine Tender Name Role Phone Christopher Wang MD Primary Care Provider [phone] Encounter Details Date Type Department Care Team ([facility] st Contact Info) Description 09/15/2024 Results Follow-Up [facility] MEDICINE [address] [place] [address] Ifrah Christianson MD [address] [place] [address] POCT urinalysis dipstick manually resulted, POCT COVID-19 [...] Description 11/18/2024 8:00 AM EDT Office Visit [facility] ADULT DENTAL [address] [place] [address] Wayne Webb, CHADS [address] [place] [address] documented as of this encounter Visit Diagnoses Diagnosis Acute cystitis with hematuria- Primary documented in this encounter Additional Health Concerns Assessment Noted Time PHQ-9 Depression Total Score: 1 12/24/19 24 1:52 PM EST documented as of this encounter Care Teams Welding Machine Tender Relationship Specialty Start Date End Date Christopher Wang MD [address] [place] [address] PCP - General Internal Medicine 08/23/19 documented as of this encounter
--- OUTSIDE RECORDS SUMMARY | 2024-11-14 12:41 | XMS_ITS | Encounter Summary ---
Author Organization [employer] Address [address] [place] [address] Care Team Providers Care Nursing Home Admissions Director Name Role Phone Christopher Wang MD Primary Care Provider [phone] Encounter Details Date Type Department Care Team (Latest Contact Info) Description 12/30/[address] [facility] CONVERSIONS Dental, Provider, DDS Social History Tobacco [...] Care Team ( st Contact Info) Description 11/18/2024 8:00 AM EDT Office Visit [facility] CHC ADULT DENTAL [address] [place] [address] Wayne Webb, DDS [address] [facility] [place] [address] documented as of this encounter Visit Diagnoses Not on filedocumented in this encounter Care Teams Nursing Home Admissions Director Relationship Specialty Start Date End Date Christopher Wang MD [address] [place] [address] PCP - General Internal Medicine 08/23/19 documented as of this encounter
--- OUTSIDE RECORDS SUMMARY | 2024-11-14 12:41 | XMS_ITS | Encounter Summary ---
Author Organization [employer] Address [address] [facility] 7 [place] [address] Care Team Providers Care Pitch Worker Name Role Phone Christopher Wang MD Primary Care Provider [phone] Encounter Details Date Type Department Care Team ([facility] st Contact Info) Description 06/10/2023 Orders Only [facility] CHC MED & PEDS [address] [place], [place] [phone] Christopher Wang MD [address] [place] [address] Social History Tobacco Use Types Packs/Day Years [...] 8:00 AM EDT Office Visit [facility] ADULT DENTAL [address] [place] [address] Wayne Webb DDS [address] [place] [address] documented as of this encounter Visit Diagnoses Not on filedocumented in this encounter Additional Health Concerns Assessment Noted Time PHQ-9 Depression Total Score: 0 03/04/19 23 9:18 AM EST documented as of this encounter Care Teams Pitch Worker Relationship Specialty Start Date End Date Christopher Wang MD [address] [place] [address] PCP - General Internal Medicine 08/23/19 documented as of this encounter
--- OUTSIDE RECORDS SUMMARY | 2024-11-14 12:41 | XMS_ITS | Patient Health Record ---
Author Organization [facility] Address [address] [place] [address] Care Team Providers Care Vice President Of Manufacturing Name Role Phone Christopher Wang M.D. Primary Care Provider Un available Rubén Bruce Jr Unavailable [phone] Allergies No Known Allergies Reason For Referral [...] 800 MG Oral for 30 Active pyRIDostigmine [place] 60 MG TAKE ONE TABLET THREE TIMES [...] Problem Gastro-esophage al reflux disease without esophagitis (991158612) Gastro-esophageal reflux disease without esophagitis (K21.9) Active confirmed Problem 823894775 Periumbilical pa in (R10.33) Active confirmed Problem 063068354 Gastroesophageal reflux disease without esophagitis (K21.9) Active confirmed Problem 786819516 Abnormal barium swallow (R93.3) Active confirmed Problem 521244147 LUQ pain (R10.12) Active confirmed Problem 533071505 Gas bloat syndro me (K92.89) Active confirmed Problem 937753202 Allergy, initial encounter (T78.40XA) Active confirmed Vital Signs Temperature 97.7 degrees Fahrenheit 01/06/2024 Blood pressure diastolic 00 mm Hg 01/06/2024 Height 73 in 01/06/2024 Blood pressure systolic 00 mm Hg 01/06/2024 Weight 296 lbs 01/06/2024 BMI 39.05 kg/m2 01/06/2024 Encounters Encounter Location Date Provider Diagnosis [facility] [address] [place] [phone] 01/06/2024 Rubén Bruce Jr Gastroesophageal reflux disease without esophagitis K21.9 ; Abnormal barium swallow R93.3 and Allergy, initial encounter T78.40XA [facility] [address] [place] [phone] 09/14/2024 Rubén Bruce Jr Assessments Encounter Date [...] Provider Name:Rubén topete , 01/04/2025 10:40:00 AM, [address] [place] [address], [address], [place], [address], Insurance Providers Payer Name Payer Address Payer Phone Subscriber Number Group Number Insured Name Patient Relationship to Insured Coverage Start Date Coverage End Date [facility] [address] [place] [address] [id number] ANAIS JAEGER Self - patient is the [...]
--- OUTSIDE RECORDS SUMMARY | 2024-11-14 12:41 | XMS_ITS | Encounter Summary ---
Author Organization [employer] Address [address] [place] [address] Care Team Providers Care Fios Line Installer Name Role Phone Christopher Wang MD Primary Care Provider [phone] Reason for Visit * Reason Comments Med Refill Encounter Details Date Type Department Care Team ([facility] st Contact Info) Description 10/23/[address] [facility] CHC MED & PEDS [address] [place], [place] [phone] Christopher Wang MD [address] [place] [address] Bloating symptom Social History Tobacco Use Types [...] 8:00 AM EDT Office Visit [facility] ADULT DENTAL [address] [place] [address] Wayne Webb, NATY 230 [place] [address] documented as of this encounter Visit Diagnoses Diagnosis Bloating symptom Flatulence, eructation, and gas pain documented in this encounter Additional Health Concerns Assessment Noted Time PHQ-9 Depression Total Score: 0 03/04/19 23 9:18 AM EST documented as of this encounter Care Teams Fios Line Installer Relationship Specialty Start Date End Date Christopher Wang MD [address] [place] [address] PCP - General Internal Medicine 08/23/19 documented as of this encounter
--- OUTSIDE RECORDS SUMMARY | 2024-11-14 12:41 | XMS_ITS | Encounter Summary ---
Author Organization [employer] Address [address] [place] [address] Care Team Providers Care Field Artillery Crewmember Name Role Phone Christopher Wang MD Primary Care Provider [phone] Reason for Visit * Reason Comments Med Refill Encounter Details Date Type Department Care Team ([facility] st Contact Info) Description 11/26/2023 Refill [facility] CHC MED & PEDS [address] [place], [place] [phone] Christopher Wang MD [address] [place] [address] Bloating symptom Social History Tobacco Use Types [...] 11/18/2024 8:00 AM EDT Office Visit [facility] ADULT DENTAL [address] [place] [address] Wayne Webb, DDS [address] [place] [address] documented as of this encounter Visit Diagnoses Diagnosis Bloating symptom Flatulence, eructation, and gas pain documented in this encounter Additional Health Concerns Assessment Noted Time PHQ-9 Depression Total Score: 0 03/04/19 23 9:18 AM EST documented as of this encounter Care Teams Field Artillery Crewmember Relationship Specialty Start Date End Date Christopher Wang MD [address] [place] [address] PCP - General Internal Medicine 08/23/19 documented as of this encounter
--- OUTSIDE RECORDS SUMMARY | 2024-11-14 12:41 | XMS_ITS | Encounter Summary ---
Author Organization [employer] Address [address] [place] [address] 7 [place] [address] Care Team Providers Care County Commissioner Name Role Phone Christopher Wang MD Primary Care Provider [phone] Encounter Details Date Type Department Care Team ([facility] st Contact Info) Description 02/03/2023 Orders Only [facility] CHC MED & PEDS [address] [place], [place] [phone] Christopher Wang MD [address] [place] [address] Acquired hypothyroidism (Primary Dx); Type 2 diabetes mellitus without complication, without long-term current use of insulin ([facility]) Social History Tobacco Use [...] Visit [facility] ADULT DENTAL [address] [place] [address] Wayne Webb, DDS [address] [place] [address] documented as of this encounter Procedures Procedure [...] 9:00 AM EST) Creatinine, Urine 176.37 mg/dL [facility] Microalbumin Urine 11.0 mg/L [facility] Microalbum Creatinine Ratio Ur 6.2 <30 ug/mg cr [facility] Comment:Albumin/Creatinine R atio Reference Ranges: Normal: < 30 ug/mg creatinine Microalbuminuria: 30 - 300 ug/mg creatinineClinical Albuminuria: > 300 ug/mg creatinine Urine (Urine, Random) 02/03/2023 9:00 AM EST 02/03/2023 2:19 PM EST us Christopher Wang MD LAB URINE ORDERABLES Final Result Performing Organization Address [facility]/ZIP Co ca Phone Number [facility] [address] [place] [phone] * TSH W/Reflex to FT4 (02/03/2023 8:57 AM EST) Pathologist [facility] TSH reflex Free T4 1.22 0.32 - 4.0 uIU/mL [facility] Blood Venous blood specimen / Unknown 02/03/2023 8:57 AM EST 02/03/2023 2:20 PM EST us Christopher Wang MD LAB BLOOD ORDERABLES Final Result Performing Organization Address [facility] Co ca Phone Number [facility] [address] [place] [phone] * Lipid Panel, Standard (02/03/2023 8:57 AM EST) Triglycerides 89 <150 mg/dL [facility] Comment:Desirable Triglyceri de: less than 150 mg/dLBorderline High Triglyceride 150-199 mg/dLHigh Triglyceride: 200-499 mg/dLVery High Triglyceride: greater than or equal to 5OO mg/dL Cholesterol 118 <200 mg/dL [facility] Comment:Desirable Cholestero l: less than 200 mg/dLBorderline High Cholesterol: 200-239 mg/dLHigh Cholesterol: greater than 239 mg/dL LDL Cholesterol Calculated 51 <100 mg/dL [facility] Comment:Desirable LDL: less than 100 mg/dLNear Optimal/Above Optimal LDL: 110- 129 mg/dLBorderline High LDL: 130-159 mg/dLHigh LDL: 160-189 mg/dLVery High LDL: greater than or equal to 190 mg/dL HDL Cholesterol 50 >40 mg/dL [facility] Comment:Desirable HDL: great er than 40 mg/dL Note: This HDL assay may give artificially low results in patients with liver disease. Blood Venous blood specimen / Unknown 02/03/2023 8:57 AM EST 02/03/2023 2:20 PM EST us Christopher Wang MD LAB BLOOD ORDERABLES Final Result [facility] [address] [place] [phone] * Comprehensive Metabolic Panel (02/03/2023 8:57 AM EST) Sodium 142 135 - 145 mmol/L [facility] Potassium 3.9 3.3 - 5.1 mmol/L [facility] Chloride 108 96 - 108 mmol/L [facility] Carbon Dioxide 25 22 - 29 mmol/L [facility] Anion Gap 13 12 - 20 [facility] Urea Nitrogen (BUN) 13 9 - 16 mg/dL [facility] Creatinine, Serum 0.75 0.5 - 1.4 mg/dL [facility] Estimated Glomerular Filt Rate >60 [facility] Comment:NOTE: For -Am erican individuals, multiply the result by 1.210.Chronic Kidney Disease: Estimated GFR < 60 mL/min/1.60r8Ybfeig Kidney Disease: Estimated GFR < 15 mL/min/1.73m2 Glucose 93 60 - 115 mg/dL [facility] Calcium 9.2 8.4 - 10.2 mg/dL [facility] Bilirubin, Total 0.4 0.0 - 1.0 mg/dL [facility] Aspartate Amino Transferase 19 5 - 37 U/L [facility] Alanine Aminotransferase 15 0 - 40 U/L [facility] Total Protein 7.0 6.5 - 8.0 g/dL [facility] Albumin Level 4.0 3.5 - 5.0 g/dL [facility] Alkaline Phosphatase 77 39 - 117 U/L [facility] Blood Venous blood specimen / Unknown 02/03/2023 8:57 AM EST 02/03/2023 2:20 PM EST us Christopher Wang MD LAB BLOOD ORDERABLES Final Result [facility] [address] [place] [phone] documented in this encounter Visit Diagnoses Diagnosis Acquired hypothyroidism- Primary Unspecified hypothyroidism Type 2 diabetes mellitus without complication, without long-term current use of insulin (HCC) documented in this encounter Additional Health Concerns Assessment Noted Time PHQ-9 Depression Total Score: 0 03/04/19 23 9:18 AM EST documented as of this encounter Care Teams County Commissioner Relationship Specialty Start Date End Date Christopher Wang MD [address] [place] [address] PCP - General Internal Medicine 08/23/19 documented as of this encounter
== END 2024-11-14 11:46 | disposition home or self-care (01) ==
LOC: HO.HSM 11:11
PROVIDERS: PCP Internal Medicine; Visit Provider Psychiatry & Neurology Neurology
DX: G70.00 Myasthenia gravis without (acute) exacerbation (principal)
CPT/HCPCS: 99214

== ENCOUNTER 2024-11-14 11:11 | Outpatient (REF) | payer MEDICARE, SELFPAY ==
[2024-11-14 12:24] LABS: MANUAL DIFF FLAG NO
[2024-11-14 13:29] LABS: Hematocrit 38.5 % (42.0-52.0); Hemoglobin 12.6 g/dl (14.0-18.0); Imm Gran Abs Auto 0.04 X10*3/uL (0.00-0.03); Imm Gran Pct Auto 0.5 % (0.0-0.4); Lymphocytes Absolute Auto 0.8 X10*3/uL (1.2-4.9); Mean Corpuscular HGB Conc 32.7 g/dl (31.0-36.0); Mean Corpuscular Hemoglobin 33.5 pg (27.0-33.0); Mean Corpuscular Volume 102.4 fL (80.0-98.0); NRBC Abs Auto 0.000 X10*3/uL (0.0-0.012); NRBC Pct Auto 0.0 /100WBC (0.0-0.2); Platelet Count 185 X10*3/uL (160-400); Red Blood Count 3.76 X10*6/uL (4.60-5.80); White Blood Count 7.5 X10*3/uL (4.8-10.8)
== END 2024-11-14 11:12 | disposition home or self-care (01) ==
LOC: HO.LAB 11:11
PROVIDERS: PCP Internal Medicine; Visit Provider Psychiatry & Neurology Neurology
DX: G70.00 Myasthenia gravis without (acute) exacerbation (principal)
CPT/HCPCS: 36415; 85025; 99212

== ENCOUNTER 2025-01-10 13:03 | Outpatient (REF) | payer MEDICARE, SELFPAY ==
--- NOTE | ~2025-01-10 | CT_ITS ---
EXAMINATION: CT ABDOMEN AND PELVIS WITHOUT AND WITH CONTRAST CLINICAL INFORMATION: Hematuria. 69-year-old male. COMPARISON: CT abdomen pelvis 06/07/2022. 07/07/2020. TECHNIQUE: Noncontrast CT of the abdomen and pelvis is performed followed by split bolus contrast-enhanced images using 85 mL Omnipaque 350 contrast. Postcontrast imaging is performed during the combined nephrogram and excretion phase. Sagittal and coronal reformatted images were obtained on the technologist's workstation for both the precontrast and postcontrast phases. This CT examination was performed using dose optimization techniques as appropriate, variously including the following: *Automated exposure control *Adjustment of mA and/or kV according to patient size (this includes techniques or standardized protocols for targeted exams where dose is matched to indication/reason for exam; i.e. extremities or head) *Use of iterative reconstruction technique FINDINGS: LUNG BASES: Minor dependent atelectasis in the bilateral lung bases. Heart size normal. Probable small type I hiatus hernia. No effusions. LIVER, GALLBLADDER, AND BILIARY TREE: The liver is normal in size, shape, and attenuation. No focal hepatic lesion or biliary ductal dilatation is present. Gallbladder is surgically absent. PANCREAS: Unremarkable. SPLEEN: Unremarkable. ADRENAL GLANDS: Unremarkable. KIDNEYS AND URETERS: On the nonenhanced acquisition, no abnormal calcifications are present in either kidney. Minor bilateral perirenal stranding, nonspecific. No hydronephrosis or hydroureter present. On the postcontrast delay, there is normal enhancement of both kidneys, symmetrically. There is a subcentimeter cyst in the lower pole of the right kidney, and a tiny cysts in the superior pole of the left kidney. There is otherwise no suspicious renal lesion in either kidney. There is no renal mass. There is normal excretion of contrast into both ureters through both collecting systems. There are no pyelocalyceal filling defects identified. Ureters have normal course and caliber bilaterally. BLADDER: The urinary bladder normally fills with contrast. There are no bladder calculi, masses, filling defects, or wall thickening. There is no perivesicular stranding present. Contrast normally cortex within the urinary bladder on the delayed phase. PERITONEUM: There is no free intraperitoneal air or ascites. GASTROINTESTINAL TRACT: Probable small type I hiatus hernia. Stomach is otherwise normal. The duodenal sweep is normal. The small bowel is normal in caliber and course, without wall thickening or dilatation. Normal appendix. The colon is normal in caliber and course without wall thickening or inflammation. There is mild to moderate diverticulosis of the sigmoid. There is no evidence of acute diverticulitis. The rectum appears normal. ABDOMINAL WALL: No significant hernia is appreciated. LYMPH NODES: There is no abnormal lymphadenopathy present. VASCULAR: There is mild calcific atheromatous disease of the aorta and iliac arteries, without evidence of aneurysm. PELVIC VISCERA: The prostate and seminal vessicles are unremarkable. OSSEUS STRUCTURES: There is no suspicious lytic or blastic bone lesion present. 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 There are bulky ventral disc and vertebral osteophytes present in the spine, with ossification of the interspinous ligaments, and There are mild to moderate degenerative changes of the hip joints present with over coverage of the posterior acetabula. Multilevel facet degenerative hypertrophic changes. CT/CT urogram IMPRESSION: 1. There is no etiology identified for hematuria. Aside from tiny subcentimeter cysts, the kidneys, ureters, and urinary bladder appear normal. 2. There has been a cholecystectomy. 3. There is mild to moderate diverticulosis of the sigmoid colon, without evidence of acute diverticulitis. 4. Osseous findings suggestive of ankylosing spondylitis, with changes of DISH also within the differential. Electronically signed by: Jose De Jesus Carvajal MD 01/10/2025 02:19 PM EST
[2025-01-10] MEDS: iohexoL 350 MG/ML 100 ML INFUS..BTL IV (13:55)
[2025-01-10 16:32] LABS: Creatinine POC 0.8 mg/dL (0.5-1.4); GFR POC > 60
--- OUTSIDE RECORDS SUMMARY | 2025-01-10 16:50 | XMS_ITS | Encounter Summary ---
Author Organization [employer] Address [address] [place] [address] Care Team Providers Care Test Engineering Technician Name Role Phone Christopher Wang MD Primary Care Provider [phone] Encounter Details Date Type Department Care Team (Late st Contact Info) Description 10/14/2022 Abstract [facility] MED & PEDS [address] [place] [address] Jordyn Ham [place] Social History Tobacco Use [...] Care Team (Late st Contact Info) Description 02/22/2025 9:45 AM EST Office Visit [facility] MED & PEDS [address] [place] [address] Christopher Wang MD [address] [place] [address] documented as of this encounter Visit Diagnoses Not on filedocumented in this encounter Additional Health Concerns Assessment Noted Time PHQ-9 Depression Total Score: 0 03/04/19 23 9:18 AM EST documented as of this encounter Care Teams Test Engineering Technician Relationship Specialty Start Date End Date Christopher Wang MD [address] [place] [phone] PCP - General Internal Medicine 08/23/19 documented as of this encounter
--- OUTSIDE RECORDS SUMMARY | 2025-01-10 16:50 | XMS_ITS | Encounter Summary ---
Author Organization [email or web address] Address [address] [address] Care Team Providers Care Label Pinker Name Role Phone Christopher Wang MD Primary Care Provider [phone] Reason for Visit * Reason Onset Date Comments Hospital Follow-up 10/03/2024 Encounter Details Date Type Department Care Team ([facility] st Contact Info) Description 10/03/2024 Telephone [facility] MEDICINE [address] [place] [address] Christopher Wang MD [address] [place] [address] Hospital Follow-up Social History Tobacco Use Types [...] from pt requesting a HDF appt. Hospital: [facility] Date of admission: 09/24/24 Discharge date: 10/02/24 Reason: unable to swallow *Send message to [place] Clinical Care Coordinators documented in this encounter Plan of Treatment Upcoming Encounters Date Type Department Care Team ([facility] st Contact Info) Description 02/22/2025 9:45 AM EST Office Visit [facility] CHC MED & PEDS [address] [place] [address] Christopher Wang MD [address] [place] [address] documented as of this encounter Visit Diagnoses Not on filedocumented in this encounter Additional Health Concerns Assessment Noted Time PHQ-9 Depression Total Score: 10 025 3:14 PM EDT documented as of this encounter Care Teams Label Pinker Relationship Specialty Start Date End Date Christopher Wang MD [address] [place] [address] PCP - General Internal Medicine 08/23/19 documented as of this encounter
--- OUTSIDE RECORDS SUMMARY | 2025-01-10 16:50 | XMS_ITS | Patient Health Record ---
Author Organization [facility] Address [address] [place] [address] Care Team Providers Care Electric Sealing Machine Operator Name Role Phone Christopher Wang M.D. Primary Care Provider Un available Rubén Bruce Jr Unavailable Allergies No Known Allergies Reason For Referral No Information Medications Medication SIG (Take, Route, Frequency, Duration) Notes Start Date End Date Status Calcium + Vitamin D3 600-10 MG-MCG Tablet TAKE ONE TABLET IN THE MORNING AND EVENING Oral; Duration: 30 Active pyRIDostigmine Laurel 60 MG Tablet TAKE ONE TABLET THREE TIMES DAILY Oral; Duration: 30 Active Dicyclomine HCl 20 MG Tablet 1 tablet Orally 2-4 times a day 11/28/2021 Not-Taking/PRN Vitamin D 25 MCG (1000 UT) Tablet 1 tablet Orally Once a day; Duration: 30 day(s) Active Omeprazole 40 MG Capsule Delayed Release 1 Orally Once a day; Duration: 30 days 09/11/2022 Active Imuran 50 MG Tablet as directed Orally Active Irbesartan-hydroCHLOROth iazide 150-12.5 MG Tablet Oral; Duration: 30 Active Aspirin Low Dose 81 MG Tablet Chewable CHEW ONE TABLET EVERY MORNING Oral; Duration: 30 Active Gas Relief Extra Strength Active Vitamin B-12 1000 MCG Tablet TAKE ONE TABLET EVERY MORNING Oral; Duration: 30 Active Immunizations Vaccine Route Administration Date Status Comme nts Influenza Unknown 11/16/2021 Administered Influenza Unknown 12/23/2023 Administered Influenza Unknown 12/21/2024 Administered Social History Tobacco Use: Social History Observation Description Date Details (start date - stop date) Never Smoker NA - NA Social History Drugs/Alcohol: Social Info Question Answer Notes Alcohol Screen Did you have a drink containing alcohol in the past year? No Points 0 Interpretation Negative Tobacco Use: Social Info Question Answer Notes Tobacco Use/Smoking Patient is a nonsmoker Additional Details Category Social Info Options Details Miscellaneous: Marital status: Occupation: disabled Problems Problem Type SNOMED Code ICD Code Onset Dates Problem Status W/U Status Risk Notes Problem Gastro-esophageal reflux disease without esophagitis (650168200) Gastro-esophageal reflux disease without esophagitis (K21.9) Active confirmed Problem Periumbilical pain (161562677) Periumbilical pain (R10.33) Active confirmed Problem Gastroesophageal reflux disease without esophagitis (341565700) Gastroesophageal reflux disease without esophagitis (K21.9) Active confirmed Problem Barium swallow abnormal (733110333) Abnormal barium swallow (R93.3) Active confirmed Problem Left upper quadrant pain (198416734) LUQ pain (R10.12) Active confirmed Problem Abdominal bloating (finding) (224395046) Gas bloat syndrome (K92.89) Active confirmed Problem Allergy (570103774) Allergy, ini tial encounter (T78.40XA) Active confirmed Vital Signs Temperature 98.0 degrees Fahrenheit 01/04/2025 Blood pressure diastolic 01 mm Hg 01/04/2025 Height 73 in 01/04/2025 Blood pressure systolic 001 mm Hg 01/04/2025 Weight 291.0 lbs 01/04/2025 BMI 38.39 kg/m2 01/04/2025 Encounters Encounter Location Date Provider Diagnosis [facility] [address] [place] [phone] 01/04/2025 Rubén Bruce Jr Gastroesophageal reflux disease without esophagitis K21.9 and Gas bloat syndrome K92.89 [facility] [address] [place] [phone] 09/14/2024 Rubén Bruce Jr [facility] [address] [place] [phone] 12/12/2024 Rubén Bruce Jr Assessments Encounter Date Diagnosis (ICD Code) Assessment Notes Treatment Notes Treatment Clinical Notes Section Notes 01/04/2025 Gastroesophageal reflux disease without esophagitis (ICD-10 - K21.9) Mr. Farris is doing well. We discussed gastroesophageal reflux disease today. We discussed irritable bowel syndrome in detail today. We recommend that he continue high-fiber diet with MiraLAX and Metamucil as needed to help his symptoms. He will continue his present regimen. Follow-up will be in 1 year. Today's visit was 30 minutes. 01/04/2025 Gas bloat syndrome (ICD-10 - K92.89) Mr. Farris is doing well. We discussed gastroesophageal reflux disease today. We discussed irritable bowel syndrome in detail today. We recommend that he continue high-fiber diet with MiraLAX and Metamucil as needed to help his symptoms. He will continue his present regimen. Follow-up will be in 1 year. Today's visit was 30 minutes. Plan Of Treatment Pending Test Test Name Order Date LIVER PROFILE 11/28/2021 LIPASE 11/28/2021 CBC w/o DIFF 11/28/2021 IgA 11/28/2021 TRANSGLUTAMINASE AB IGA 11/28/2021 US ABD 11/28/2021 TSH REFLEX FREE T4 11/28/2021 Future Test Test Name Order Date UPPER GI ENDOSCOPY BALLOOON DILATION OF ESOPH 05/07/2023 Next Appt Details Provider Name:Rubén topete , 01/08/2026 09:40:00 AM, [address] [place] [address], [facility], [place], [address], Insurance Providers Payer Name Payer Address Payer Phone Subscriber Number Group Number Insured Name Patient Relationship to Insured Coverage Start Date Coverage End Date [facility] [address] [place], [place] [id number] RINKU ROWLEY ANAIS Self - patient is the insured Medical (General) History Medical History History ICD Code Diabetes mellitus2 Hypertension Neuropathy Myasthenia gravis Edema Gastroesophageal reflux dise ase, EGD/, no Lanza's esophagus, balloon dilation of the EG junction for symptomatic dysphagia to 20 mm Colonoscopy 2020, diverticul osis, hemorrhoids, 2 mm tubular adenoma, 5 year recall. Surgical History Surgery Date(Month/Year) partial goiter knee left C4-5 fusion Hospitalization History Reason Date(Month/Year) trouble swallowing 09/2024
--- OUTSIDE RECORDS SUMMARY | 2025-01-10 16:50 | XMS_ITS | Encounter Summary ---
Author Organization [employer] Address [address] [address] Care Team Providers Care Programs Manager Name Role Phone Christopher Wang MD Primary Care Provider [phone] Reason for Visit * Reason Onset Date Comments Referral 04/29/2024 Encounter Details Date Type Department Care Team ([facility] st Contact Info) Description 04/29/2024 Telephone [facility] [address] [place] [address] Christopher Wang MD [address] [place] [address] Referral Social History Tobacco Use Types Packs/Day [...] and audiology referral. Pt changed insurance from [facility] to [facility] Medicare. Advised pt to call insurance to see in they cover appointment with [facility] audiology where referral was sent.Also stated to pt to call [facility] audiology if insurance states they will cover [...] Upcoming Encounters Date Type Department Care Team ([facility] st Contact Info) Description 02/22/2025 9:45 AM EST Office Visit [facility] [address] [place] [address] Christopher Wang MD [address] [place] [address] documented as of this encounter Visit Diagnoses Not on filedocumented in this encounter Additional Health Concerns Assessment Noted Time PHQ-9 Depression Total Score: 1 12/24/19 24 1:52 PM EST documented as of this encounter Care Teams Programs Manager Relationship Specialty Start Date End Date Christopher Wang MD [address] [place] [address] PCP - General Internal Medicine 08/23/19 documented as of this encounter
--- OUTSIDE RECORDS SUMMARY | 2025-01-10 16:50 | XMS_ITS | Encounter Summary ---
Author Organization [employer] Address [address] [facility] 7 [place] [address] Care Team Providers Care Administrative Assistant Coordinator Name Role Phone Christopher Wang MD Primary Care Provider [phone] Encounter Details Date Type Department Care Team (Late st Contact Info) Description 01/10/2025 Orders Only [facility] External Provider, [facility] Social History Tobacco Use Types Packs/Day Years [...] Description 02/22/2025 9:45 AM EST Office Visit [facility] [address] [place] [address] Christopher Wang MD [address] [place], [place] [phone] documented as of this encounter Procedures Procedure Name Priority Date/Time Associated Diagnosis Comments CT UROGRAM WO CONTRAST Routine 01/10/2025 1:28 PM EST POCT CREATININE GFR Routine 01/10/2025 1 :18 PM EST documented in this encounter Results * CT Urogram w/o Contrast (01/10/2025 1:28 PM EST) Anatomical Region Laterality Modality Ureter, Upper urinary tract Comp uted Tomography 01/10/2025 1:28 PM EST Narrative 01/10/2025 2:22 PM EST [address] [address] [address] Scan Report Signed Patient: Blaine Do MR#: [id number] : 1955 Acct:[id number] Age/Sex: 69 / M ADM Date: 01/10/25 Loc: HO.CT Attending Dr: Steve Miner MD Ordering Physician: STEVE MINER MD Date of Service: 01/10/25 Procedure(s): CT urogram Accession Number(s): [id number] cc: Christopher Wang MD; STEVE MINER MD Report Number: [id number]: Total DLP = 1554.00 mGy-cm Reason for Exam: HEMATURIA EXAMINATION: CT ABDOMEN AND PELVIS WITHOUT AND WITH CONTRAST CLINICAL INFORMATION: Hematuria. 69-year-old male. COMPARISON: CT abdomen pelvis 06/07/2022. 07/07/2020. TECHNIQUE: Noncontrast CT of the abdomen and pelvis is performed followed by split bolus contrast-enhanced images using 85 mL Omnipaque 350 contrast. Postcontrast imaging is performed during the combined nephrogram and excretion phase. Sagittal and coronal reformatted images were obtained on the technologist's workstation for both the precontrast and postcontrast phases. This CT examination was performed using dose optimization techniques as appropriate, variously including the following: *Automated exposure control *Adjustment of mA and/or kV according to patient size (this includes techniques or standardized protocols for targeted exams where dose is matched to indication/reason for exam; i.e. extremities or head) *Use of iterative reconstruction technique FINDINGS: LUNG BASES: Minor dependent atelectasis in the bilateral lung bases. Heart size normal. Probable small type I hiatus hernia. No effusions. LIVER, GALLBLADDER, AND BILIARY TREE: The liver is normal in size, shape, and attenuation. No focal hepatic lesion or biliary ductal dilatation is present. Gallbladder is surgically absent. PANCREAS: Unremarkable. SPLEEN: Unremarkable. ADRENAL GLANDS: Unremarkable. KIDNEYS AND URETERS: On the nonenhanced acquisition, no abnormal calcifications are present in either kidney. Minor bilateral perirenal stranding, nonspecific. No hydronephrosis or hydroureter present. On the postcontrast delay, there is normal enhancement of both kidneys, symmetrically. There is a subcentimeter cyst in the lower pole of the right kidney, and a tiny cysts in the superior pole of the left kidney. There is otherwise no suspicious renal lesion in either kidney. There is no renal mass. There is normal excretion of contrast into both ureters through both collecting systems. There are no pyelocalyceal filling defects identified. Ureters have normal course and caliber bilaterally. BLADDER: The urinary bladder normally fills with contrast. There are no bladder calculi, masses, filling defects, or wall thickening. There is no perivesicular stranding present. Contrast normally cortex within the urinary bladder on the delayed phase. PERITONEUM: There is no free intraperitoneal air or ascites. GASTROINTESTINAL TRACT: Probable small type I hiatus hernia. Stomach is otherwise normal. The duodenal sweep is normal. The small bowel is normal in caliber and course, without wall thickening or dilatation. Normal appendix. The colon is normal in caliber and course without wall thickening or inflammation. There is mild to moderate diverticulosis of the sigmoid. There is no evidence of acute diverticulitis. The rectum appears normal. ABDOMINAL WALL: No significant hernia is appreciated. LYMPH NODES: There is no abnormal lymphadenopathy present. VASCULAR: There is mild calcific atheromatous disease of the aorta and iliac arteries, without evidence of aneurysm. PELVIC VISCERA: The prostate and seminal vessicles are unremarkable. OSSEUS STRUCTURES: There is no suspicious lytic or blastic bone lesion present. 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 There are bulky ventral disc and vertebral osteophytes present in the spine, with ossification of the interspinous ligaments, and There are mild to moderate degenerative changes of the hip joints present with over coverage of the posterior acetabula. Multilevel facet degenerative hypertrophic changes. CT/CT urogram IMPRESSION: 1. There is no etiology identified for hematuria. Aside from tiny subcentimeter cysts, the kidneys, ureters, and urinary bladder appear normal. 2. There has been a cholecystectomy. 3. There is mild to moderate diverticulosis of the sigmoid colon, without evidence of acute diverticulitis. 4. Osseous findings suggestive of ankylosing spondylitis, with changes of DISH also within the differential. Electronically signed by: Jose De Jesus Carvajal MD 01/10/2025 02:19 PM EST Dictated By: Jose De Jesus Carvajal MD Signed By: <Electronically signed by Jose De Jesus Carvajal MD in OV> 01/10/25 1419 DD/ 1328 TD/TT: 01/10/25 1358 Apiculturist: Procedure Note Donotuseinterpreter, Image - 01/10/[address] [address] [address] Scan Report Signed Patient: Myesha Do#: M [id number] : 8Acct:[id number] Age/Sex: 69 / MADM Date: 01/10/25 Loc: HO.CT Attending Dr: Steve Miner MD Ordering Physician: STEVE MINER MD Date of Service: 01/10/25 Procedure(s): CT urogram Accession Number(s): [id number] cc: Christopher Wang MD; STEVE MINER MD Report Number: [id number]: Total DLP = 1554.00 mGy-cm Reason for Exam: HEMATURIA EXAMINATION: CT ABDOMEN AND PELVIS WITHOUT AND WITH CONTRAST CLINICAL INFORMATION: Hematuria. 69-year-old male. COMPARISON: CT abdomen pelvis 06/07/2022. 07/07/2020. TECHNIQUE: Noncontrast CT of the abdomen and pelvis is performed followed by split bolus contrast-enhanced images using 85 mL Omnipaque 350 contrast. Postcontrast imaging is performed during the combined nephrogram and excretion phase. Sagittal and coronal reformatted images were obtained on the technologist's workstation for both the precontrast and postcontrast phases. This CT examination was performed using dose optimization techniques as appropriate, variously including the following: *Automated exposure control *Adjustment of mA and/or kV according to patient size (this includes techniques or standardized protocols for targeted exams where dose is matched to indication/reason for exam; i.e. extremities or head) *Use of iterative reconstruction technique FINDINGS: LUNG BASES: Minor dependent atelectasis in the bilateral lung bases. Heart size normal. Probable small type I hiatus hernia. No effusions. LIVER, GALLBLADDER, AND BILIARY TREE: The liver is normal in size, shape, and attenuation. No focal hepatic lesion or biliary ductal dilatation is present. Gallbladder is surgically absent. PANCREAS: Unremarkable. SPLEEN: Unremarkable. ADRENAL GLANDS: Unremarkable. KIDNEYS AND URETERS: On the nonenhanced acquisition, no abnormal calcifications are present in either kidney. Minor bilateral perirenal stranding, nonspecific. No hydronephrosis or hydroureter present. On the postcontrast delay, there is normal enhancement of both kidneys, symmetrically. There is a subcentimeter cyst in the lower pole of the right kidney, and a tiny cysts in the superior pole of the left kidney. There is otherwise no suspicious renal lesion in either kidney. There is no renal mass. There is normal excretion of contrast into both ureters through both collecting systems. There are no pyelocalyceal filling defects identified. Ureters have normal course and caliber bilaterally. BLADDER: The urinary bladder normally fills with contrast. There are no bladder calculi, masses, filling defects, or wall thickening. There is no perivesicular stranding present. Contrast normally cortex within the urinary bladder on the delayed phase. PERITONEUM: There is no free intraperitoneal air or ascites. GASTROINTESTINAL TRACT: Probable small type I hiatus hernia. Stomach is otherwise normal. The duodenal sweep is normal. The small bowel is normal in caliber and course, without wall thickening or dilatation. Normal appendix. The colon is normal in caliber and course without wall thickening or inflammation. There is mild to moderate diverticulosis of the sigmoid. There is no evidence of acute diverticulitis. The rectum appears normal. ABDOMINAL WALL: No significant hernia is appreciated. LYMPH NODES: There is no abnormal lymphadenopathy present. VASCULAR: There is mild calcific atheromatous disease of the aorta and iliac arteries, without evidence of aneurysm. PELVIC VISCERA: The prostate and seminal vessicles are unremarkable. OSSEUS STRUCTURES: There is no suspicious lytic or blastic bone lesion present. 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 There are bulky ventral disc and vertebral osteophytes present in the spine, with ossification of the interspinous ligaments, and There are mild to moderate degenerative changes of the hip joints present with over coverage of the posterior acetabula. Multilevel facet degenerative hypertrophic changes. CT/CT urogram IMPRESSION: 1. There is no etiology identified for hematuria. Aside from tiny subcentimeter cysts, the kidneys, ureters, and urinary bladder appear normal. 2. There has been a cholecystectomy. 3. There is mild to moderate diverticulosis of the sigmoid colon, without evidence of acute diverticulitis. 4. Osseous findings suggestive of ankylosing spondylitis, with changes of DISH also within the differential. Electronically signed by: Jose De Jesus Carvajal MD 01/10/2025 02:19 PM EST RP Dictated By: Jose De Jesus Carvajal MD Signed By: <Electronically signed by Jose De Jesus Carvajal MD in [place]> 01/10/25 1419 DD/ 1328 TD/TT: 01/10/25 1358 Apiculturist: us [facility] External Provider IMG CT PROCEDURES Final Result * POCT Creatinine GFR (01/10/2025 1:18 PM EST) POCT Creatinine 0.8 0.5 - 1.4 mg/dL [facility] GFR POC >60 [facility] Comment:Chronic Kidney Disea se: Estimated GFR < 60 mL/min/1.43s0Unfmgy Kidney Disease: Estimated GFR < 15 mL/min/1.73m2 01/10/2025 1:18 PM EST 01/10/2025 4:30 PM EST Narrative [facility] - 01/10/2025 4:32 PM EST [id number] Generic External Data Provider LAB POINT OF CARE TEST DOCKED DEVICE ORDERABLES Final Result [facility] [address] [place] [address] [phone] documented in this encounter Visit Diagnoses Not on filedocumented in this encounter Additional Health Concerns Assessment Noted Time PHQ-9 Depression Total Score: 10 025 3:14 PM EDT documented as of this encounter Care Teams Administrative Assistant Coordinator Relationship Specialty Start Date End Date Christopher Wang MD [address] [place] [phone] PCP - General Internal Medicine 08/23/19 documented as of this encounter
--- OUTSIDE RECORDS SUMMARY | 2025-01-10 16:50 | XMS_ITS | Encounter Summary ---
Author Organization [employer] Address [address] [place] [address] 7 [place] [address] Care Team Providers Care Utilization Manager Name Role Phone Christopher Wang MD Primary Care Provider [phone] Encounter Details Date Type Department Care Team ([facility] st Contact Info) Description 02/03/2023 Orders Only [facility] MED & PEDS [address] [place], [place] [phone] Christopher Wang MD [address] [place] [address] Acquired hypothyroidism (Primary Dx); Type 2 diabetes mellitus without complication, without long-term current use of insulin ([facility]) Social History Tobacco Use [...] Description 02/22/2025 9:45 AM EST Office Visit [facility] MED & PEDS [address] [place] [address] Christopher Wang MD [address] [place], [place] [phone] documented as of this encounter Procedures Procedure [...] 9:00 AM EST) Creatinine, Urine 176.37 mg/dL [facility] Microalbumin Urine 11.0 mg/L [facility] Microalbum Creatinine Ratio Ur 6.2 <30 ug/mg cr [facility] Comment:Albumin/Creatinine R at Reference Ranges: Normal: < 30 ug/mg creatinine Microalbuminuria: 30 - 300 ug/mg creatinineClinical Albuminuria: > 300 ug/mg creatinine Urine (Urine, Random) 02/03/2023 9:00 AM EST 02/03/2023 2:19 PM EST us Christopher Wang MD LAB URINE ORDERABLES Final Result Performing Organization Address [facility]/ZIP Co de Phone Number [facility] [address] [place] [phone] * TSH W/Reflex to FT4 (02/03/2023 8:57 AM EST) Pathologist [facility] TSH reflex Free T4 1.22 0.32 - 4.0 uIU/mL [facility] Blood Venous blood specimen / Unknown 02/03/2023 8:57 AM EST 02/03/2023 2:20 PM EST us Christopher Wang MD LAB BLOOD ORDERABLES Final Result Performing Organization Address [facility]/ZIP Co de Phone Number [facility] [address] [place] [phone] * Lipid Panel, Standard (02/03/2023 8:57 AM EST) Triglycerides 89 <150 mg/dL [facility] Comment:Desirable Triglyceri de: less than 150 mg/dLBorderline High Triglyceride 150-199 mg/dLHigh Triglyceride: 200-499 mg/dLVery High Triglyceride: greater than or equal to 5OO mg/dL Cholesterol 118 <200 mg/dL [facility] Comment:Desirable Cholestero l: less than 200 mg/dLBorderline High Cholesterol: 200-239 mg/dLHigh Cholesterol: greater than 239 mg/dL LDL Cholesterol Calculated 51 <100 mg/dL [facility] Comment:Desirable LDL: less than 100 mg/dLNear Optimal/Above Optimal LDL: 110- 129 mg/dLBorderline High LDL: 130-159 mg/dLHigh LDL: 160-189 mg/dLVery High LDL: greater than or equal to 190 mg/dL HDL Cholesterol 50 >40 mg/dL [facility] Comment:Desirable HDL: great er than 40 mg/dL Note: This HDL assay may give artificially low results in patients with liver disease. Blood Venous blood specimen / Unknown 02/03/2023 8:57 AM EST 02/03/2023 2:20 PM EST us Christopher Wang MD LAB BLOOD ORDERABLES Final Result [facility] [address] [place] [phone] * Comprehensive Metabolic Panel (02/03/2023 8:57 AM EST) Sodium 142 135 - 145 mmol/L [facility] Potassium 3.9 3.3 - 5.1 mmol/L [facility] Chloride 108 96 - 108 mmol/L [facility] Carbon Dioxide 25 22 - 29 mmol/L [facility] Anion Gap 13 12 - 20 [facility] Urea Nitrogen (BUN) 13 9 - 16 mg/dL [facility] Creatinine, Serum 0.75 0.5 - 1.4 mg/dL [facility] Estimated Glomerular Filt Rate >60 [facility] Comment:NOTE: For -Am erican individuals, multiply the result by 1.210.Chronic Kidney Disease: Estimated GFR < 60 mL/min/1.85h2Njpatn Kidney Disease: Estimated GFR < 15 mL/min/1.73m2 Glucose 93 60 - 115 mg/dL [facility] Calcium 9.2 8.4 - 10.2 mg/dL [facility] Bilirubin, Total 0.4 0.0 - 1.0 mg/dL [facility] Aspartate Amino Transferase 19 5 - 37 U/L [facility] Alanine Aminotransferase 15 0 - 40 U/L [facility] Total Protein 7.0 6.5 - 8.0 g/dL [facility] Albumin Level 4.0 3.5 - 5.0 g/dL [facility] Alkaline Phosphatase 77 39 - 117 U/L [facility] Blood Venous blood specimen / Unknown 02/03/2023 8:57 AM EST 02/03/2023 2:20 PM EST us Christopehr Wang MD LAB BLOOD ORDERABLES Final Result [facility] [address] [place] [phone] documented in this encounter Visit Diagnoses Diagnosis Acquired hypothyroidism- Primary Unspecified hypothyroidism Type 2 diabetes mellitus without complication, without long-term current use of insulin (HCC) documented in this encounter Additional Health Concerns Assessment Noted Time PHQ-9 Depression Total Score: 0 03/04/19 23 9:18 AM EST documented as of this encounter Care Teams Utilization Manager Relationship Specialty Start Date End Date Christopher Wang MD [address] [place] [phone] PCP - General Internal Medicine 08/23/19 documented as of this encounter
--- OUTSIDE RECORDS SUMMARY | 2025-01-10 16:50 | XMS_ITS | Encounter Summary ---
Author Organization [employer] Address [address] [place] [address] Care Team Providers Care Drawing Tracer Name Role Phone Christopher Wang MD Primary Care Provider [phone] Encounter Details Date Type Department Care Team ([facility] st Contact Info) Description 01/09/2025 Telephone [facility] CH[facility] MED & PEDS [address] [place], [place] [phone] Christopher Wang MD [address] [place] [address] Social History Tobacco Use Types Packs/Day Years [...] encounter Miscellaneous Notes * Telephone Encounter - Christine Betancourt LPN - 01/09/2025 11:20 AM EST Received scanned document requesting refill on PYRIDOSTIGMINE 60 MG medication not prescribed by PCP. Pharmacy notified. documented in this encounter Plan of Treatment Upcoming Encounters Date Type Department Care Team (Late st Contact Info) Description 02/22/2025 9:45 AM EST Office Visit [facility] MED & PEDS [address] [place] [address] Christopher Wang MD [address] [place] [address] documented as of this encounter Visit Diagnoses Not on filedocumented in this encounter Additional Health Concerns Assessment Noted Time PHQ-9 Depression Total Score: 10 025 3:14 PM EDT documented as of this encounter Care Teams Drawing Tracer Relationship Specialty Start Date End Date Christopher Wang MD [address] [place] [phone] PCP - General Internal Medicine 08/23/19 documented as of this encounter
--- OUTSIDE RECORDS SUMMARY | 2025-01-10 16:50 | XMS_ITS | Encounter Summary ---
Author Organization [employer] Address [address] [place] [address] Care Team Providers Care Software Licensing Specialist Name Role Phone Christopher Wang MD Primary Care Provider [phone] Encounter Details Date Type Department Care Team (Latest Contact Info) Description 12/30/2021 Abstract [facility] Dental, Provider, DDS Social History [...] Description 02/22/2025 9:45 AM EST Office Visit [facility] MED & PEDS [address] [place] [address] Christopher Wang MD [address] [place] [address] documented as of this encounter Visit Diagnoses Not on filedocumented in this encounter Care Teams Software Licensing Specialist Relationship Specialty Start Date End Date Christopher Wang MD [address] [place] [address] PCP - General Internal Medicine 08/23/19 documented as of this encounter
--- OUTSIDE RECORDS SUMMARY | 2025-01-10 16:50 | XMS_ITS | Encounter Summary ---
Author Organization [employer] Address [address] [place] [address] 7 [place] [address] Care Team Providers Care Retail Solar Advisor Name Role Phone Christopher Wang MD Primary Care Provider [phone] Reason for Visit * Reason Onset Date Comments Appointment 04/14/2022 Encounter Details Date Type Department Care Team (Late st Contact Info) Description 04/14/2022 Telephone [facility] ADULT DENTAL [address] [place] [address] Ronal Andrade, DMD [address] [place] [address] Appointment Social History Tobacco Use Types Packs/Day [...] [facility] [address] [place] [address] Christopher Wang MD [address] [place] [address] documented as of this encounter Visit Diagnoses Not on filedocumented in this encounter Additional Health Concerns Assessment Noted Time PHQ-9 Depression Total Score: 0 03/04/19 23 9:18 AM EST documented as of this encounter Care Teams Retail Solar Advisor Relationship Specialty Start Date End Date Christopher Wang MD [address] [place] [address] PCP - General Internal Medicine 08/23/19 documented as of this encounter
--- OUTSIDE RECORDS SUMMARY | 2025-01-10 16:50 | XMS_ITS | Encounter Summary ---
Author Organization [employer] Address [address] [place] [address] Care Team Providers Care Bin Worker Name Role Phone Christopher Wang MD Primary Care Provider [phone] Reason for Visit * Reason Comments Med Refill Encounter Details Date Type Department Care Team ([facility] st Contact Info) Description 04/07/2022 Refill [facility] MED & PEDS [address] [place], [place] [phone] Christopher Wang MD [address] [place] [address] Primary hypertension (Primary Dx); Type 2 diabetes mellitus without complication, without long-term current use of insulin ([facility]); Vitamin B12 deficiency Social History [...] [facility] PED[facility] [address] [place] [address] Christopher Wang MD [address] [place] [address] documented as of this encounter Visit Diagnoses Diagnosis Primary hypertension- Primary Unspecified essential hypertension Type 2 diabetes mellitus without complication, without long-term current use of insulin (HCC) Vitamin B12 deficiency Other B-complex deficiencies documented in this encounter Additional Health Concerns Assessment Noted Time PHQ-9 Depression Total Score: 0 03/04/19 23 9:18 AM EST documented as of this encounter Care Teams Bin Worker Relationship Specialty Start Date End Date Christopher Wang MD [address] [place] [address] PCP - General Internal Medicine 08/23/19 documented as of this encounter
--- OUTSIDE RECORDS SUMMARY | 2025-01-10 16:50 | XMS_ITS | Encounter Summary ---
Author Organization [employer] Address [address] [place] [address] Care Team Providers Care Bank Operations Officer Name Role Phone Christopher Wang MD Primary Care Provider [phone] Reason for Visit * Reason Comments Med Refill Encounter Details Date Type Department Care Team ([facility] st Contact Info) Description 10/23/2023 Refill [facility] CH[facility] MED & PEDS [address] [place], [place] [phone] Christopher Wang MD [address] [place] [address] Bloating symptom Social History Tobacco Use Types [...] Description 02/22/2025 9:45 AM EST Office Visit [facility] MED & PEDS [address] [place] [address] Christopher Wang MD [address] [place] [address] documented as of this encounter Visit Diagnoses Diagnosis Bloating symptom Flatulence, eructation, and gas pain documented in this encounter Additional Health Concerns Assessment Noted Time PHQ-9 Depression Total Score: 0 03/04/19 23 9:18 AM EST documented as of this encounter Care Teams Bank Operations Officer Relationship Specialty Start Date End Date Christopher Wang MD [address] [place] [address] PCP - General Internal Medicine 08/23/19 documented as of this encounter
--- OUTSIDE RECORDS SUMMARY | 2025-01-10 16:50 | XMS_ITS | Encounter Summary ---
Author Organization [employer] Address [address] [place] [address] Care Team Providers Care Escort Car Driver Name Role Phone Christopher Wang MD Primary Care Provider [phone] Reason for Visit * Reason Comments Med Refill Encounter Details Date Type Department Care Team ([facility] st Contact Info) Description 06/14/2024 Refill [facility] MED[facility] [address] [place] [address] Christopher Wang MD [address] [place] [address] Social History Tobacco Use Types Packs/Day Years [...] Description 02/22/2025 9:45 AM EST Office Visit [facility] CH[facility] MED & PEDS [address] [place] [address] Christopher Wang MD [address] [place] [address] documented as of this encounter Visit Diagnoses Not on filedocumented in this encounter Additional Health Concerns Assessment Noted Time PHQ-9 Depression Total Score: 1 12/24/19 24 1:52 PM EST documented as of this encounter Care Teams Escort Car Driver Relationship Specialty Start Date End Date Christopher Wang MD [address] [place] [address] PCP - General Internal Medicine 08/23/19 documented as of this encounter
--- OUTSIDE RECORDS SUMMARY | 2025-01-10 16:50 | XMS_ITS | Clinical Summary ---
Author Organization [employer] Address [address] [place] [address] 7 [place] [address] Care Team Providers Care Flux Plant Operator Name Role Phone Christopher Wang MD Primary Care Provider [phone] Allergies Active Allergy Reactions Criticality Noted Date [...] 90 tablet 3 024 Active Continuous Glucose Mixer Runner (FreeStyle Dee Dee 2 Romeo) deviceIndications: Type 2 diabetes mellitus without complication, without long-term current use of insulin (HCC) Scan sensor every 8 hours 1 each 025 Active Continuous Glucose Sensor (FreeStyle Dee Dee 2 Sensor) miscIndications:Ty pe 2 diabetes mellitus without complication, without long-term current use of insulin ([facility]) Apply 1 sensor every 14 days 2 each Active glucose blood test stripIndications:T ype 2 diabetes mellitus without complication, without long-term current use of insulin ([facility]) To use once a day 100 each 12 2025 Active irbesartan (Avapro) 75 MG tablet TAKE ONE TABLET EVERY MORNING 90 tablet Active famotidine (Pepcid) 20 MG tablet TAKE ONE TABLET TWICE DAILY IN THE MORNING AND AT BEDTIME 60 tablet Active lidocaine (LMX 4) 4 % creamIndications:P rimary osteoarthritis of both knees Apply topically if needed in the morning, at noon, in the evening, and at bedtime for mild pain. 28 g 2 2025 Active hydroCHLOROthiazid e (Microzide) 12.5 MG [...] TABLET EVERY MORNING 90 tablet 1 Active latanoprost (Xalatan) 0.005 % ophthalmic solution Administer 1 drop into both eyes at bedtime. Active meloxicam (Mobic) 15 MG tablet Take [...] TABLET DAILY AT NOON 90 tablet Active GAS RELIEF 125 MG capsule TAKE ONE CAPSULE THREE TIME DAILY IN THE MORNING, AT NOON, AND IN THE EVENING AFTER MEALS 90 capsule 5 Active hydroCHLOROthiazid e 12.5 MG tablet TAKE ONE TABLET EVERY MORNING 30 tablet 5 Active Vitamins-Lipotropi cs (B Complex Formula 1, Lipotrop,) tabletIndications: Type 2 diabetes mellitus without complications (HCC),Polyneuropat hy, unspecified TAKE ONE TABLET EVERY MORNING 90 tablet 3 Active Vitamins-Lipotropi cs (B Complex Formula 1, Lipotrop,) tablet Take 1 tablet by mouth in the morning. 025 2024 Discontinued Active Problems Problem Noted Date Diagnosed Date [...] Encounters Date Type Department Care Team Description 01/10/2025 Orders Only [facility] External Provider, [facility] 01/09/2025 Telephone [facility] [address] [place] [address] Christopher Wang MD 01/04/2025 Refill [facility] [address] [place] [address] Christopher Wang MD Type 2 diabetes mellitus without complications (HCC); Polyneuropathy, unspecified 12/09/2024 Refill [facility] [address] [place] [address] Christopher Wang MD 12/09/2024 Refill [facility] [address] [place] [address] Christopher Wang MD 11/22/2024 Travel 11/18/2024 8:00 AM EDT Office Visit [facility] [address] [place] [address] Wayne Webb, DDS 11/17/2024 2:45 PM EDT Office Visit [facility] [address] [place] [address] Christopher Wang MD Gastroesophageal reflux disease, unspecified whether esophagitis present (Primary Dx); Encounter for immunization; Type 2 diabetes mellitus without complication, without long-term current use of insulin ([facility]); Myasthenia gravis (HCC) 11/17/2024 Travel 11/16/2024 Telephone [facility] [address] [place] [address] Christopher Wang MD Nurse Triage 11/14/2024 Orders Only GENERIC EXTERNAL DATA DEPARTMENT Provider, Generic External Data 11/14/2024 Refill [facility] [address] [place] [address] Christopher Wang MD Peripheral nerve disease 10/28/2024 1:30 PM EDT Office Visit [facility] [address] [place] [address] Christopher Wang MD Primary hypertension (Primary Dx); Myasthenia gravis (CMS/HCC); Type 2 diabetes mellitus without complication, without long-term current use of insulin (CMS/HCC) 10/28/2024 Travel 10/27/2024 Refill [facility] [address] [place] [address] Christopher Wang MD 10/27/2024 Telephone [facility] [address] [place] [address] Christopher Wang MD Chart Prep 10/25/2024 Patient Outreach [facility] [address] [place] [address] [phone] Christopher Wang MD Transition Of Care (Tcm) (HDF- scheduled) 10/21/2024 Telephone [facility] [address] [facility] [place] [address] Christopher Wang MD Appointment Request 10/21/2024 Telephone [facility] [address] [facility] [place] [address] Christopher Wang MD 10/19/[address], [place] [address] Christopher Wang MD call back needed 10/13/2024 Telephone [facility] [address] [facility] [place] [address] Christopher Wang MD Call Back Request 10/10/2024 1:15 PM EDT Office Visit [facility] [address] [facility] [place] [address] Christopher Wang MD Myasthenia gravis ([facility]) (Primary Dx); Other dysphagia; Normocytic anemia; Primary hypertension 10/10/2024 Orders Only GENERIC EXTERNAL DATA DEPARTMENT Provider, Generic External Data 10/10/2024 Travel from Last 3 Months Immunizations Immunization Administration Dates Next Due Hep B, adult 08/27/2023 Influenza injectable quadriv alent IIV4 with preservative 11/08/2015 Influenza injectable quadriv alent preservative free 12/09/2021,12/21/2020,11/24/2019 Influenza, High Dose Seasona l, Preservative Free 11/17/2024,11/09/2023 Influenza, IIV3, injectable 12/23/2023, Moderna Covid-19 Vaccine 12+ 01/15/2021,05/17/19 21,04/18/2020 Moderna [...] your housing situation today? I have anand karthik 12/17/[address] you li [...] Sign Reading Time Taken Comments Blood Pressure 125/78 11/17/2024 2:26 PM EDT Pulse 85 11/17/2024 2:26 PM EDT Temperature 36.8 C (98.2 F) 09/23/2024 3:05 PM EDT Respiratory Rate 20 11/17/2024 2:26 PM EDT Oxygen Saturation 97% 11/17/2024 2:26 PM EDT Inhaled Oxygen Concentration - - Weight 122 kg (268 lb) 11/17/2024 2:26 PM EDT Height 185.4 cm (6' 1 ) 11/17/2024 2:26 PM EDT Body Mass Index 35.36 11/17/2024 2:26 PM EDT Plan of Treatment Upcoming Encounters Date Type Department Care Team (Late st Contact Info) Description 02/22/2025 9:45 AM EST Office Visit [facility] [address] [place] [address] Christopher Wang MD [address] [place] [address] Health Maintenance Due Date Last Done Comments CT Colonography 1955 FIT DNA/Cologuard 1955 FIT 1955 FOBT 1955 Sigmoidoscopy 1955 Hepatitis A Vaccines (1 of 2 - Risk 2-dose series) 1976 RSV Patients and Patients Aged 60 years or older (1 - Risk 50-74 years 1-dose series) 06/25/2007 Hepatitis B Vaccines (2 of 3 - Risk 3-dose series) 09/24/2023 08/27/2023 Dental Oral Exam 05/27/2024 11/26/2023, , 04/24/2014 Dental Prophylaxis 05/27/2024 11/26/2023, 12/30/2021 Eye Exam 08/11/2024 08/11/2022, 07/18, 08/11/2022, Additional history exists COVID-19 Vaccine ( season) 2024 04/18/2022, 01/15/2021, 05/16/2020, Additional history exists Diabetes: Foot Exam 11/08/2024 11/09/2023, 11/09/2023, 08/28/2022, Additional history exists Dental X-Ray: Bitewings 11/26/2024 11/26/19, 12/03/2021, 04/24/2014 Depression Monitoring 03/26/2025 09/23/2024, 025 Diabetes: Urine Protein Screening 04/11/2025 04/11/2024, 02/03/2023, 12/10/2021, Additional history exists Lipid Panel 04/11/2025 04/11/2024, 01/16, 12/10/2021, Additional history exists Diabetes: Hemoglobin A1C 05/18/2025 025, 06/23/2024, 04/11/2024, Additional history exists Alcohol/Substance Use Screening 09/23/2025 09/23/2024 SDOH Screening 09/23/2025 09/23/2024 Tobacco Screening 11/18/2025 11/18/2024 Colonoscopy 02/23/2027 Colorectal Cancer Screening 02/23/2027 Dental X-Ray: Full Mouth 03/31/2027 025, 12/03/2021, 04/24/2014 DTaP/Tdap/Td Vaccines (2 - Td or Tdap) 06/25/2031 2021, 07/27/2014 Hepatitis C Screening Completed 2021 Pneumococcal Vaccine: 50+ Years Completed 08/27/2023, 02/06/2020 Zoster Vaccines Completed 04/11/2024, 01/14/2021 Influenza Vaccine Completed 12/21/2024, , 12/23/2023, Additional history exists HIB Vaccines Aged Out [...] GFR Routine 01/10/2025 1 :18 PM EST 2,5,10,12,15 MAXILLARY PARTIAL DENTURE - RESIN BASE (INCLUDING, RETENTIVE/CLASPING MATERIALS, RESTS, AND TEETH) Routine 11/18/2024 8:00 AM EDT 18,20,31 MANDIBULAR PARTIAL DENTURE - RESIN BASE (INCLUDING, RETENTIVE/CLASPING MATERIALS, RESTS, AND TEETH) Routine 11/18/2024 8:00 AM EDT CASE PRESENTATION, DETAILED AND EXTENSIVE TREATMENT PLANNING Routine 11/18/2024 8:00 AM EDT POCT GLYCATED HEMOGLOBIN, TOTAL Routine 11/17/2024 3:03 PM EDT Type 2 diabetes mellitus without complication, without long-term current use of insulin (HCC) POCT GLUCOSE Routine 11/17/2024 3:02 PM EDT Type 2 diabetes mellitus without complication, without long-term current use of insulin (HCC) CBC WITH AUTO DIFFERENTIAL Routine 11/14/2024 12:22 PM EDT CBC WITH AUTO DIFFERENTIAL Routine 10/10/2024 2:15 PM EDT ALBUMIN, RANDOM URINE W/CREATININE Routine 04/11/2024 10:11 [...] Recently Relevant to Health Maintenance Results * CT Urogram w/o Contrast (01/10/2025 1:28 PM EST) Anatomical Region Laterality Modality Ureter, Upper urinary tract Comp uted Tomography 01/10/2025 1:28 PM EST Narrative 01/10/2025 2:22 PM EST [address] [address] [address] Scan Report Signed Patient: Blaine Do MR#: M [id number] : 1955 Acct:[id number] Age/Sex: 69 / M ADM Date: 01/10/25 Loc: HO.CT Attending Dr: Steve Miner MD Ordering Physician: STEVE MINER MD Date of Service: 01/10/25 Procedure(s): CT urogram Accession Number(s): [id number] cc: Christopher Wang MD; STEVE MINER MD Report Number: [id number]: Total DLP = 1554.00 mGy-cm Reason for [...] De Jesus Carvajal MD 01/10/2025 02:19 PM [facility] Dictated By: Jose De Jesus Carvajal MD Signed By: <Electronically signed by Jose De Jesus Carvajal MD in OV> 01/10/25 1419 DD/ 1328 TD/TT: 01/10/25 1358 Fusion Operator: Procedure Note Donotuseinterpreter, Image - 01/10/[address] [place] [address] [address] Scan Report Signed Patient: Blaine DoMR#: M [id number] : 8Acct:[id number] Age/Sex: 69 / MADM Date: 01/10/25 Loc: HO.CT Attending Dr: Steve Miner MD Ordering Physician: STEVE MINER MD Date of Service: 01/10/25 Procedure(s): CT urogram Accession Number(s): [id number] cc: Christopher Wang MD; STEVE MINER MD Report Number: [id number]: Total DLP = 1554.00 mGy-cm Reason for [...] 01/10/25 1419 DD/ 1328 TD/TT: 01/10/25 1358 Fusion Operator: [facility] External Provider IMG CT PROCEDURES Final Result * POCT Creatinine GFR (01/10/2025 1:18 PM EST) POCT Creatinine 0.8 0.5 - 1.4 mg/dL [facility] GFR POC >60 [facility] Comment:Chronic Kidney Disea se: Estimated GFR < 60 mL/min/1.87i7Ndfedg Kidney Disease: Estimated GFR < 15 mL/min/1.73m2 01/10/2025 1:18 PM EST 01/10/2025 4:30 PM EST Narrative [facility] - 01/10/2025 4:32 PM EST [id number] Generic External Data Provider LAB POINT OF CARE TEST DOCKED DEVICE ORDERABLES Final Result [facility] [address] [place] [address] [phone] * POCT Hgb A1c (11/17/2024 3:03 PM EDT) Hemoglobin A1C 4.6 4.0 - 5.7 % QC Media Lot # [id number] Lot# Expiration Date Blood 11/17/2024 3:03 PM EDT Christopher Wang MD POINT OF CARE TEST ENTER/ED IT ORDERABLES Final Result * POCT Glucose (11/17/2024 3:02 PM EDT) Pathologist [facility] Glucose Blood, POC 130 60 - 200 mg/dL QC Media Lot # [id number] Lot# Expiration Date Comment:random Blood Capillary blood specimen / Unknown 11/17/2024 3:02 PM EDT Christopher Wang MD POINT OF CARE TEST ENTER/ED IT ORDERABLES Final Result * (ABNORMAL) CBC auto differential (11/14/2024 12:22 PM EDT) Only the most recent of2 resultswithin the time period is included. White Blood Count 7.5 4.8 - 10.8 X10*3/uL [facility] Red Blood Count 3.76(L) 4.60 - 5.80 X10*6/uL [facility] Hemoglobin 12.6(L) 14.0 - 18.0 g/dl [facility] Hematocrit 38.5(L) 42.0 - 52.0 % [facility] Mean Corpuscular Volume 102.4(H) 80.0 - 98.0 fL [facility] Mean Corpuscular Hemoglobin 33.5(H) 27.0 - 33.0 pg [facility] Mean Corpuscular HGB Conc 32.7 31.0 - 36.0 g/dl [facility] Red Cell Distribution Width 15.4 11.0 - 16.0 % [facility] Platelet Count 185 160 - 400 X10*3/uL [facility] Mean Platelet Volume 10.2 9.4 - 12.4 fL [facility] Neutrophils Percent Auto 83.7(H) 45 - 73 % [facility] Imm Gran Pct Auto 0.5(H) 0.0 - 0.4 % [facility] Lymphocytes Percent Auto 10.4(L) 20 - 40 % [facility] Monocytes Percent Auto 4.8 2 - 11 % [facility] Eosinophils Percent Auto 0.3 0 - 4 % [facility] Basophils Percent Auto 0.3 0 - 2 % [facility] NRBC Pct Auto 0.0 0.0 - 0.2 /100WBC [facility] Neutrophils Absolute Auto 6.3 2.0 - 8.3 x10*3/uL [facility] Imm Gran Abs Auto 0.04(H) 0.00 - 0.03 X10*3/uL [facility] Lymphocytes Absolute Auto 0.8(L) 1.2 - 4.9 X10*3/uL [facility] Monocytes Absolute Auto 0.4 0.1 - 1.2 X10*3/uL [facility] Eosinophils Absolute Auto 0.0 0.0 - 0.4 X10*3/uL [facility] Basophils Absolute Auto 0.0 0.0 - 0.2 X10*3/uL [facility] NRBC Abs Auto 0.000 0.0 - 0.012 X10*3/uL [facility] 11/14/2024 12:2 2 PM EDT 11/14/2024 12:22 PM EDT us Generic External Data Provider LAB BLOOD ORDERAB LES Final Result [facility] [address] [place] [address] [phone] * Albumin, Random Urine W/Creatinine (04/11/2024 10:11 AM EST) Creatinine, Urine 77.42 mg/dL [facility] Microalbumin Urine 6.0 mg/L [facility] Microalbum Creatinine Ratio Ur 7.7 <30 ug/mg cr [facility] Comment:Albumin/Creatinine R atio Reference Ranges: Normal: < 30 ug/mg creatinine Microalbuminuria: 30 - 300 ug/mg creatinineClinical Albuminuria: > 300 ug/mg creatinine Urine (Urine, Random) 04/11/2024 10:11 AM EST 04/11/2024 2:41 PM EST us Christopher Wang MD LAB URINE ORDERABLES Final Result [facility] [address] [place] [phone] * Lipid Panel, Standard (04/11/2024 10:07 AM EST) Triglycerides 53 <150 mg/dL [facility] Comment:Desirable Triglyceri de: less than 150 mg/dLBorderline High Triglyceride 150-199 mg/dLHigh Triglyceride: 200-499 mg/dLVery High Triglyceride: greater than or equal to 5OO mg/dL Cholesterol 128 <200 mg/dL [facility] Comment:Desirable Cholestero l: less than 200 mg/dLBorderline High Cholesterol: 200-239 mg/dLHigh Cholesterol: greater than 239 mg/dL LDL Cholesterol Calculated 61 <100 mg/dL [facility] Comment:Desirable LDL: less than 100 mg/dLNear Optimal/Above Optimal LDL: 110- 129 mg/dLBorderline High LDL: 130-159 mg/dLHigh LDL: 160-189 mg/dLVery High LDL: greater than or equal to 190 mg/dL HDL Cholesterol 57 >40 mg/dL [facility] Comment:Desirable HDL: great er than 40 mg/dL Note: This HDL assay may give artificially low results in patients with liver disease. Blood Venous blood specimen / Unknown 04/11/2024 10:07 AM EST 04/11/2024 2:41 PM EST us Christopher Wang MD LAB BLOOD ORDERABLES Final Result [facility] [address] [place] [address] [phone] * HEPATITIS C AB W/REFL TO [...] a test for HCV RNA (test code 39819) is suggested. For additional information please refer to http://education.[employer]/faq/ECS89w2 (This link is being provided for informational/ educational purposes only.) 2021 9:35 AM EDT us Christopher Wang MD HISTORICAL/NON ORDERABLE LA BS Final Result Performing Organization Address City/[facility] [[email or web address]] Co de Phone Number [facility] [address] from Last 3 Months or Most Recently Relevant to Health Maintenance [place] [address] [place] [address] MEDICARE REPLACEMENT PPO [facility] STAND ADULT Care Teams Flux Plant Operator Relationship Specialty Start Date End Date Christopher Wang MD [address] [place] [address] PCP - General Internal Medicine 08/23/19
--- OUTSIDE RECORDS SUMMARY | 2025-01-10 16:50 | XMS_ITS | Encounter Summary ---
Author Organization [employer] Address [address] [place] [address] 7 [place] [address] Care Team Providers Care Marketing Research Analyst Name Role Phone Christopher Wang MD Primary Care Provider [phone] Encounter Details Date Type Department Care Team ([facility] st Contact Info) Description 10/23/2023 Orders Only [facility] [address] [place], [place] [phone] Christopher Wang MD [address] [place] [address] Bloating symptom Social History Tobacco Use Types [...] Description 02/22/2025 9:45 AM EST Office Visit [facility] [address] [place] [address] Christopher Wang MD [address] [place] [address] documented as of this encounter Visit Diagnoses Diagnosis Bloating symptom Flatulence, eructation, and gas pain documented in this encounter Additional Health Concerns Assessment Noted Time PHQ-9 Depression Total Score: 0 03/04/19 23 9:18 AM EST documented as of this encounter Care Teams Marketing Research Analyst Relationship Specialty Start Date End Date Christopher Wang MD [address] [place] [address] PCP - General Internal Medicine 08/23/19 documented as of this encounter
--- OUTSIDE RECORDS SUMMARY | 2025-01-10 16:50 | XMS_ITS | Encounter Summary ---
Author Organization [employer] Address [address] [place] [address] Care Team Providers Care Oracle Fusion Consultant Name Role Phone Christopher Wang MD Primary Care Provider [phone] Reason for Visit * Reason Onset Date Comments Med Refill 10/22/2023 Encounter Details Date Type Department Care Team ([facility] st Contact Info) Description 10/22/2023 Telephone [facility] [address] [place] [address] Christopher Wang MD [address] [place] [address] Med Refill Social History Tobacco Use Types [...] 10 MG tablet To be sent to: [facility] [place] - [address] [facility] documented in this encounter Plan of Treatment Upcoming Encounters Date Type Department Care Team ([facility] st Contact Info) Description 02/22/2025 9:45 AM EST Office Visit [facility] [address] [place] [address] Christopher Wang MD [address] [place] [address] documented as of this encounter Visit Diagnoses Not on filedocumented in this encounter Additional Health Concerns Assessment Noted Time PHQ-9 Depression Total Score: 0 03/04/19 23 9:18 AM EST documented as of this encounter Care Teams Oracle Fusion Consultant Relationship Specialty Start Date End Date Christopher Wang MD [address] [place] [address] PCP - General Internal Medicine 08/23/19 documented as of this encounter
--- OUTSIDE RECORDS SUMMARY | 2025-01-10 16:50 | XMS_ITS | Encounter Summary ---
Author Organization [employer] Address [address] [place] [address] Care Team Providers Care Gasfitter Name Role Phone Christopher Wang MD Primary Care Provider [phone] Reason for Visit * Reason Comments Med Refill Encounter Details Date Type Department Care Team ([facility] st Contact Info) Description 11/26/2023 Refill [facility] [address] [place], [place] [phone] Christopher Wang MD [address] [place] [address] Bloating symptom Social History Tobacco Use Types [...] Description 02/22/2025 9:45 AM EST Office Visit [facility] [address] [place] [address] Christopher Wang MD [address] [place] [address] documented as of this encounter Visit Diagnoses Diagnosis Bloating symptom Flatulence, eructation, and gas pain documented in this encounter Additional Health Concerns Assessment Noted Time PHQ-9 Depression Total Score: 0 03/04/19 23 9:18 AM EST documented as of this encounter Care Teams Gasfitter Relationship Specialty Start Date End Date Christopher Wang MD [address] [place] [address] PCP - General Internal Medicine 08/23/19 documented as of this encounter
--- OUTSIDE RECORDS SUMMARY | 2025-01-10 16:50 | XMS_ITS | Encounter Summary ---
Author Organization [employer] Address [address] [place] [address] Care Team Providers Care Transition Nurse Name Role Phone Christopher Wang MD Primary Care Provider [phone] Reason for Visit * Reason Comments Med Refill Encounter Details Date Type Department Care Team ([facility] st Contact Info) Description 11/14/2024 Refill [facility] [address] [place], [place] [phone] Christopher Wang MD [address] [place] [address] Peripheral nerve disease Social History Tobacco Use [...] Description 02/22/2025 9:45 AM EST Office Visit [facility] [address] [place] [address] Christopher Wang MD [address] [place] [address] documented as of this encounter Visit Diagnoses Diagnosis Peripheral nerve disease Mononeuritis of unspecified site documented in this encounter Additional Health Concerns Assessment Noted Time PHQ-9 Depression Total Score: 10 025 3:14 PM EDT documented as of this encounter Care Teams Transition Nurse Relationship Specialty Start Date End Date Christopher Wang MD [address] [place] [address] PCP - General Internal Medicine 08/23/19 documented as of this encounter
--- OUTSIDE RECORDS SUMMARY | 2025-01-10 16:50 | XMS_ITS | Encounter Summary ---
Author Organization [employer] Address [address] [place] [address] [address] [place] [address] Care Team Providers Care Pharmacy Consultant Name Role Phone Christopher Wang MD Primary Care Provider [phone] Reason for Referral * Consultation (Routine) - Closed Specialty Diagnoses / Procedures Referred By Contac t Referred To Contact Audiology Diagnoses Subjective hearing loss Terri Medellin MD [address] [place] [address] Phone: tel: fax: [facility] Audiology [address] Floor [place], [place] Phone: tel: fax: Referral ID Status Reason Start Date Expiration Date V isits Requested Visits Authorized [id number] Closed Specialty Services Required 11/12/2023 11/11/2024 1 1 Encounter Details Date Type Department Care Team (Late st Contact Info) Description 11/12/2023 Orders Only [facility] [address] [place], [place] [phone] Terri Medellin MD [address] [place], [place] [phone] Subjective hearing loss (Primary Dx) Social History [...] Description 02/22/2025 9:45 AM EST Office Visit [facility] [address] [place] [address] Christopher Wang MD [address] [place] [address] Scheduled Referrals Name Type Priority Associated Diagnoses Orde r Schedule Referral to Audiology Outpatient Referral Routine Subjective hearing loss Expected: 11/12/2023 (Approximate), Expires: 11/11/2024 documented as of this encounter Visit Diagnoses Diagnosis Subjective hearing loss- Primary documented in this encounter Additional Health Concerns Assessment Noted Time PHQ-9 Depression Total Score: 0 03/04/19 23 9:18 AM EST documented as of this encounter Care Teams Pharmacy Consultant Relationship Specialty Start Date End Date Christopher Wang MD [address] [place] [address] PCP - General Internal Medicine 08/23/19 documented as of this encounter
--- OUTSIDE RECORDS SUMMARY | 2025-01-10 16:50 | XMS_ITS | Encounter Summary ---
Author Organization [employer] Address [address] [place] [address] [address] [place] [address] Care Team Providers Care Registered Dietitian Name Role Phone Christopher Wang MD Primary Care Provider [phone] Encounter Details Date Type Department Care Team ([facility] st Contact Info) Description 07/12/2024 Orders Only [facility] CHC MED & PEDS [address] [place], [place] [phone] Christopher Wang MD [address] [place] [address] Social History Tobacco Use Types Packs/Day Years [...] Description 02/22/2025 9:45 AM EST Office Visit [facility] MED & PEDS [address] [place] [address] Christopher Wang MD [address] [place] [address] documented as of this encounter Visit Diagnoses Not on filedocumented in this encounter Additional Health Concerns Assessment Noted Time PHQ-9 Depression Total Score: 1 12/24/19 24 1:52 PM EST documented as of this encounter Care Teams Registered Dietitian Relationship Specialty Start Date End Date Christopher Wang MD [address] [place] [address] PCP - General Internal Medicine 08/23/19 documented as of this encounter
--- OUTSIDE RECORDS SUMMARY | 2025-01-10 16:50 | XMS_ITS | Encounter Summary ---
Author Organization [employer] Address [address] [place] [address] Care Team Providers Care Personal Development Coach Name Role Phone Christopher Wang MD Primary Care Provider [phone] Reason for Visit * Reason Onset Date Comments Med Refill 07/13/2024 Encounter Details Date Type Department Care Team ([facility] st Contact Info) Description 07/13/2024 Refill [facility] CHC MED & PEDS [address] [place] [address] Christopher Wang MD [address] [place] [address] Type 2 diabetes mellitus without complication, without long-term current use of insulin ([facility]) Social History Tobacco Use Types Packs/Day Years [...] Upcoming Encounters Date Type Department Care Team ([facility] st Contact Info) Description 02/22/2025 9:45 AM EST Office Visit [facility] MED & PEDS [address] [place] [address] Christopher Wang MD [address] [place] [address] documented as of this encounter Visit Diagnoses Diagnosis Type 2 diabetes mellitus without complication, without long-term current use of insulin (HCC) documented in this encounter Additional Health Concerns Assessment Noted Time PHQ-9 Depression Total Score: 1 12/24/19 24 1:52 PM EST documented as of this encounter Care Teams Personal Development Coach Relationship Specialty Start Date End Date Christopher Wang MD [address] [place] [address] PCP - General Internal Medicine 08/23/19 documented as of this encounter
--- OUTSIDE RECORDS SUMMARY | 2025-01-10 16:51 | XMS_ITS | Encounter Summary ---
Author Organization [employer] Address [address] 7 [place] [address] Care Team Providers Care Xerox Machine Assembler Name Role Phone Christopher Wang MD Primary Care Provider [phone] Encounter Details Date Type Department Care Team ([facility] st Contact Info) Description 06/10/2023 Orders Only [facility] CHC MED & PEDS [address] [place], [place] [phone] Christopher Wang MD [address] [place] [address] Social History Tobacco Use Types Packs/Day Years [...] 9:45 AM EST Office Visit [facility] MED & PEDS [address] [place] [address] Christopher Wang MD [address] [place] [address] documented as of this encounter Visit Diagnoses Not on filedocumented in this encounter Additional Health Concerns Assessment Noted Time PHQ-9 Depression Total Score: 0 03/04/19 23 9:18 AM EST documented as of this encounter Care Teams Xerox Machine Assembler Relationship Specialty Start Date End Date Christopher Wang MD [address] [place] [address] PCP - General Internal Medicine 08/23/19 documented as of this encounter
--- OUTSIDE RECORDS SUMMARY | 2025-01-10 16:51 | XMS_ITS | Encounter Summary ---
Author Organization [employer] Address [address] [place] [address] 7 [place] [address] Care Team Providers Care Greenskeeper Supervisor Name Role Phone Christopher Wang MD Primary Care Provider [phone] Encounter Details Date Type Department Care Team ([facility] st Contact Info) Description 09/29/2023 Orders Only [facility] CHC MED & PEDS [address] [place], [place] [phone] Christopher Wang MD [address] [place] [address] Gastroesophageal reflux disease, unspecified whether esophagitis present [...] 9:45 AM EST Office Visit [facility] MED & PEDS [address] [place] [address] Christopher Wang MD [address] [place] [address] documented as of this encounter Visit Diagnoses Diagnosis Gastroesophageal reflux disease, unspecified whether esophagitis present- Primary documented in this encounter Additional Health Concerns Assessment Noted Time PHQ-9 Depression Total Score: 0 03/04/19 23 9:18 AM EST documented as of this encounter Care Teams Greenskeeper Supervisor Relationship Specialty Start Date End Date Christopher Wang MD [address] [place] [address] PCP - General Internal Medicine 08/23/19 documented as of this encounter
== END 2025-01-10 13:04 | disposition home or self-care (01) ==
LOC: HO.CT 13:03
PROVIDERS: PCP Internal Medicine; Visit Provider Urology
DX: R31.29 Other microscopic hematuria (principal); Z87.440 Personal history of urinary (tract) infections
CPT/HCPCS: 74178; 82565; Q9967

== ENCOUNTER → 2025-01-10 13:28 | Outpatient (BNV) | payer MEDICARE, SELFPAY | PROVIDERS: PCP Internal Medicine; Visit Provider Radiology Diagnostic Radiology | DX: R31.9 Hematuria, unspecified (principal); N28.1 Cyst of kidney, acquired; K57.30 Diverticulosis of large intestine without perforation or abscess without bleeding; Z90.49 Acquired absence of other specified parts of digestive tract | CPT/HCPCS: 74178 ==

== ENCOUNTER 2025-01-17 13:10 | Outpatient (AMB) | payer MEDICARE, SELFPAY ==
--- NOTE | 2025-01-17 13:51 | MHC.OFFVIS ---
Intake Visit Reasons: 3m Allergies No Known Allergies (No Known Allergies*) Allergy (Verified 09/24/24 17:53) HPI Comments Details: 69 years old man with antibody positive myasthenia gravis that was diagnosed in 2015 presenting with difficulty speaking and swallowing. Acetyl choline receptor antibody titers, blocking, binding, and modulating, were high. CT chest at that time revealed lung nodules with possibility of granulomatous disease but no thymus lesion. He was taking prednisone and pyridostigmine in 2016 when he switched his care to [facility]. In September of 2024, he was admitted at [facility] with exacerbation of myasthenia gravis. His neurologist at [facility] had suggested that he could not take IVIG due to possibility of hemolytic anemia and similarly could not be treated with plasmapheresis. His opinion was different stating that he had numerous treatment with IVIG in when it was given slowly he was fine. He said that 1 time it was given very fast and he had some trouble. He had been taking azathioprine but his symptoms continued to worsen. In hospital, he was treated with IVIG without complications. He switched back his care to [facility]. He is here for management concerns for myasthenia gravis and associated symptoms. He has a history of major depressive disorder, experiencing depressive episodes that occur intermittently. He reports persistent swallowing difficulty, which has been improving but is not yet fully resolved. The patient's speech has also been impaired but is gradually improving. In early October, the patient noted a regression in his symptoms and consulted his primary care physician. This led to hospitalization for four days due to a urinary tract infection, during which time he was treated with antibiotics and IVIG therapy. The patient reports prior experiences of hemolytic anemia linked to the infusion of IVIG, specifically when infusions were administered rapidly. Current medication includes prednisone, which has been at a stable dose of 20 mg per day since early October, and azathioprine, which was increased recently to 150 mg daily. [facility] Medical History Lipoma Coronary atherosclerosis Costochondritis Elevated cholesterol WILKERSON (nonalcoholic steatohepatitis) Sleep apnea Normocytic anemia Hypertension Diabetes Myasthenia gravis Surgical History S/P excision of lipoma (05/11/23) Hx laparoscopic cholecystectomy H/O colonoscopy Hx of partial thyroidectomy Hx of cardiac catheterization H/O meniscectomy of right knee H/O spinal fusion Family History Mother No problems noted. Father No problems noted. Social History Household Members: Spouse Housing: House Are you a primary district manager primary care sales to a significant other at home: No Do you presently have visiting nurse or other home services: No Alcohol intake: never Patient Tobacco Use Status: Never used Tobacco service: No Current occupational status: disabled Review of Systems Narrative - General: Reports fatigue and lack of energy. - HEENT: Denies any current issues with vision. - Respiratory: Reports breathing is okay. - Gastrointestinal: Reports swallowing is improving but not 100%. Denies current nausea or vomiting. - Neurological: Reports intermittent depression, speech is improving yet still impaired, swallowing difficulty mentioned. Physical Exam Neuro Other: Mental Status: Alert and oriented to person, place, and time. Normal attention. Normal spontaneous speech, fluency, and comprehension. Cranial Nerves: CN II: Visual cristina full to confrontation, visual acuity intact. CN III, IV, : Pupils equal, round, reactive to light and accommodation. Extraocular movements are normal. CN V: Facial sensation is normal. CN VII: Facial movements symmetrical. CN VIII: Hearing intact to bedside conversation is normal. CN IX, X: Palate elevates symmetrically. CN XI: Shoulder shrug and head turn symmetrical. CN XII: Tongue midline without atrophy or fasciculations. Extrapyramidal: Full facial expressions and blinking. No rigidity. Movements are appropriate with no tremor or abnormality. Speech: Normal; no dysarthria or tremor. Assessment & Plan Assessment & Plan (1) Myasthenia gravis: Comment: A[place] ABs at [facility] [place] August 2015: all three elevated. MRI brain WO at [facility] in 2024: Mild small vessel ischemic disease CTA chest at [facility] in 2022: [place] NCV/EMG LE 09/12/15 BILATERAL LOWER LUMBAR RADICULOPATHY. MODERATELY SEVERE AXONAL SENSORY AND MOTOR PERIPHERAL NEUROPATHY. 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 MRI brain WO at [facility] in Feb 2015: OK CT chest at [facility] in Sep 2015: three lung nodules, probably granulomatous, thymus is ok. Code(s): G70.00 - Myasthenia gravis without (acute) exacerbation Category: Medical Plan Impression: Myasthenia gravis, antibody positive, now better. Rec: Prednisone 2.5mg a day Pyridostigmine 60mg 1 qid Azathiprine 50mg tid. Folic acid 1mg a day I discussed the overall treatment strategy for managing myasthenia gravis and associated symptoms with the patient. The decision to increase prednisone to 50 mg daily was made, followed by a tapering schedule. Continuation of Imuran at 150 mg daily, which was recently increased, was confirmed. I discussed previous issues with rapid IVIG infusion rates causing hemolytic anemia and stressed the importance of appropriate administration rates for future treatments. Plasma exchange was mentioned as a more logistical-challenging option. I reviewed possible use of new biological drugs in the future, subject to insurance coverage if treatment needs advance. Instructions were given to closely monitor symptoms, emphasizing supportive measures for swallowing and speech difficulties. In the case of any exacerbation, particularly with breathing or swallowing difficulties, I advised immediate contact with medical services or visiting the hospital. Medications: New prednisone 2.5 mg PO DAILY 90 tabs 0RF Changed From azathioprine 50 mg PO BID To azathioprine 50 mg PO TID 270 tabs 0RF Refilled pyridostigmine bromide 60 mg PO Q8H 180 tabs 0RF folic acid 1 mg PO DAILY 90 tabs 1RF Discontinued prednisone Discontinued Reason: Doctor's Order 20 mg See Taper PO DAILY 60 tabs 0RF prednisone Discontinued Reason: Doctor's Order 10 mg (2 x 5 mg) PO BID 360 tabs 0RF Coding Level of Care Code Est Pt Level 4 (09137) Diagnoses Myasthenia gravis G70.00
--- OUTSIDE RECORDS SUMMARY | 2025-01-17 15:05 | XMS_ITS | Encounter Summary ---
Author Organization [employer] Address [address] [place] [address] 7 [place] [address] Care Team Providers Care Gasfitter Name Role Phone Christopher Wang MD Primary Care Provider [phone] Encounter Details Date Type Department Care Team ([facility] st Contact Info) Description 02/03/2023 Orders Only [facility] CHC MED & PEDS [address] [place], [place] [phone] Christopher Wang MD [address] [place] [address] Acquired hypothyroidism (Primary Dx); Type 2 diabetes mellitus without complication, without long-term current use of insulin ([facility]) Social History Tobacco Use Types [...] 9:45 AM EST Office Visit [facility] MED & PEDS [address] [place] [address] Christopher Wang MD [address] [place], [place] [phone] documented as of this encounter Procedures Procedure [...] 9:00 AM EST) Creatinine, Urine 176.37 mg/dL [facility] Microalbumin Urine 11.0 mg/L [facility] Microalbum Creatinine Ratio Ur 6.2 <30 ug/mg cr [facility] Comment:Albumin/Creatinine R at Reference Ranges: Normal: < 30 ug/mg creatinine Microalbuminuria: 30 - 300 ug/mg creatinineClinical Albuminuria: > 300 ug/mg creatinine Urine (Urine, Random) 02/03/2023 9:00 AM EST 02/03/2023 2:19 PM EST us Christopher Wang MD LAB URINE ORDERABLES Final Result Performing Organization Address [facility]/ZIP Co de Phone Number [facility] [address] [place] [phone] * TSH W/Reflex to FT4 (02/03/2023 8:57 AM EST) Pathologist [facility] TSH reflex Free T4 1.22 0.32 - 4.0 uIU/mL [facility] Blood Venous blood specimen / Unknown 02/03/2023 8:57 AM EST 02/03/2023 2:20 PM EST us Christopher Wang MD LAB BLOOD ORDERABLES Final Result Performing Organization Address [facility]/ZIP Co de Phone Number [facility] [address] [place] [phone] * Lipid Panel, Standard (02/03/2023 8:57 AM EST) Triglycerides 89 <150 mg/dL [facility] Comment:Desirable Triglyceri de: less than 150 mg/dLBorderline High Triglyceride 150-199 mg/dLHigh Triglyceride: 200-499 mg/dLVery High Triglyceride: greater than or equal to 5OO mg/dL Cholesterol 118 <200 mg/dL [facility] Comment:Desirable Cholestero l: less than 200 mg/dLBorderline High Cholesterol: 200-239 mg/dLHigh Cholesterol: greater than 239 mg/dL LDL Cholesterol Calculated 51 <100 mg/dL [facility] Comment:Desirable LDL: less than 100 mg/dLNear Optimal/Above Optimal LDL: 110- 129 mg/dLBorderline High LDL: 130-159 mg/dLHigh LDL: 160-189 mg/dLVery High LDL: greater than or equal to 190 mg/dL HDL Cholesterol 50 >40 mg/dL [facility] Comment:Desirable HDL: great er than 40 mg/dL Note: This HDL assay may give artificially low results in patients with liver disease. Blood Venous blood specimen / Unknown 02/03/2023 8:57 AM EST 02/03/2023 2:20 PM EST us Christopher Wang MD LAB BLOOD ORDERABLES Final Result [facility] [address] [place] [address] [phone] * Comprehensive Metabolic Panel (02/03/2023 8:57 AM EST) Sodium 142 135 - 145 mmol/L [facility] Potassium 3.9 3.3 - 5.1 mmol/L [facility] Chloride 108 96 - 108 mmol/L [facility] Carbon Dioxide 25 22 - 29 mmol/L [facility] Anion Gap 13 12 - 20 [facility] Urea Nitrogen (BUN) 13 9 - 16 mg/dL [facility] Creatinine, Serum 0.75 0.5 - 1.4 mg/dL [facility] Estimated Glomerular Filt Rate >60 [facility] Comment:NOTE: For -Am erican individuals, multiply the result by 1.210.Chronic Kidney Disease: Estimated GFR < 60 mL/min/1.64a3Hlrwnr Kidney Disease: Estimated GFR < 15 mL/min/1.73m2 Glucose 93 60 - 115 mg/dL [facility] Calcium 9.2 8.4 - 10.2 mg/dL [facility] Bilirubin, Total 0.4 0.0 - 1.0 mg/dL [facility] Aspartate Amino Transferase 19 5 - 37 U/L [facility] Alanine Aminotransferase 15 0 - 40 U/L [facility] Total Protein 7.0 6.5 - 8.0 g/dL [facility] Albumin Level 4.0 3.5 - 5.0 g/dL [facility] Alkaline Phosphatase 77 39 - 117 U/L [facility] Blood Venous blood specimen / Unknown 02/03/2023 8:57 AM EST 02/03/2023 2:20 PM EST us Christopher Wang MD LAB BLOOD ORDERABLES Final Result [facility] [address] [place] [phone] documented in this encounter Visit Diagnoses Diagnosis Acquired hypothyroidism- Primary Unspecified hypothyroidism Type 2 diabetes mellitus without complication, without long-term current use of insulin (HCC) documented in this encounter Additional Health Concerns Assessment Noted Time PHQ-9 Depression Total Score: 0 03/04/19 23 9:18 AM EST documented as of this encounter Care Teams Gasfitter Relationship Specialty Start Date End Date Christopher Wang MD [address] [place] [phone] PCP - General Internal Medicine 08/23/19 documented as of this encounter
--- OUTSIDE RECORDS SUMMARY | 2025-01-17 15:05 | XMS_ITS | Encounter Summary ---
Author Organization [employer] Address [address] [place] [address] Care Team Providers Care Supervisor Dental Laboratory Name Role Phone Christopher Wang MD Primary Care Provider [phone] Reason for Visit * Reason Comments Med Refill Encounter Details Date Type Department Care Team ([facility] [address] [facility] Contact Info) Description 01/16/2025 Refill [facility] MED & PEDS [address] [place], [place] [phone] Christopher Wang MD [address] [place] [address] Social History Tobacco Use Types Packs/Day Years [...] Description 02/22/2025 9:45 AM EST Office Visit [facility] MED & PEDS [address] [place] [address] Christopher Wang MD [address] [place] [address] documented as of this encounter Visit Diagnoses Not on filedocumented in this encounter Additional Health Concerns Assessment Noted Time PHQ-9 Depression Total Score: 10 025 3:14 PM EDT documented as of this encounter Care Teams Supervisor Dental Laboratory Relationship Specialty Start Date End Date Christopher aWng MD [address] [place] [address] PCP - General Internal Medicine 08/23/19 documented as of this encounter
--- OUTSIDE RECORDS SUMMARY | 2025-01-17 15:05 | XMS_ITS | Encounter Summary ---
Author Organization [employer] Address [address] [address] Care Team Providers Care Tinsmith Apprentice Name Role Phone Christopher Wang MD Primary Care Provider [phone]- [phone] Reason for Visit * Reason Onset Date Comments Hospital Follow-up 10/03/2024 Encounter Details Date Type Department Care Team ([facility] st Contact Info) Description 10/03/2024 Telephone [facility] MEDICINE [address] [place] [address] Chritsopher Wang MD [address] [place] [address] Hospital Follow-up Social History Tobacco Use Types [...] from pt requesting a HDF appt. Hospital: [facility] [place] Date of admission: 09/24/24 Discharge date: 10/02/24 Reason: unable to swallow *Send message to [place] Clinical Care Coordinators documented in this encounter Plan of Treatment Upcoming Encounters Date Type Department Care Team ([facility] st Contact Info) Description 02/22/2025 9:45 AM EST Office Visit [facility] CHC MED & PEDS [address] [place] [address] Christopher Wang MD [address] [place] [address] documented as of this encounter Visit Diagnoses Not on filedocumented in this encounter Additional Health Concerns Assessment Noted Time PHQ-9 Depression Total Score: 10 025 3:14 PM EDT documented as of this encounter Care Teams Tinsmith Apprentice Relationship Specialty Start Date End Date Christopher Wang MD [address] [place] [address] PCP - General Internal Medicine 08/23/19 documented as of this encounter
--- OUTSIDE RECORDS SUMMARY | 2025-01-17 15:05 | XMS_ITS | Clinical Summary ---
Author Organization [employer] Address [address] [place] [address] 7 [place] [address] Care Team Providers Care Production Line Solderer Name Role Phone Christopher Wang MD Primary Care Provider +1- [phone] Allergies Active Allergy Reactions Criticality Noted Date [...] 90 tablet 3 024 Active Continuous Glucose Systems Software Designer (FreeStyle Dee Dee 2 [place]) deviceIndications: Type 2 diabetes mellitus without complication, without long-term current use of insulin (HCC) Scan sensor every 8 hours 1 each 025 Active Continuous Glucose Sensor (FreeStyle Dee Dee 2 Sensor) miscIndications:Ty pe 2 diabetes mellitus without complication, without long-term current use of insulin ([facility]) Apply 1 sensor every 14 days 2 each Active glucose blood test stripIndications:T ype 2 diabetes mellitus without complication, without long-term current use of insulin ([facility]) To use once a day 100 each [...] tablet by mouth Once per day. Active predniSONE (Deltasone) 5 MG tablet Take [...] TABLET EVERY MORNING 90 tablet 3 Active pyridostigmine (Mestinon) 60 MG tablet TAKE 1 AND 1/2 TABLETS EVERY 6 HOURS 120 tablet Active Vitamins-Lipotropi cs (B Complex Formula 1, Lipotrop,) tablet Take 1 tablet by mouth in the morning. 2024 Discontinued pyridostigmine (Mestinon) 60 MG tablet Take 1.5 tablets (90 mg) by mouth 4 times daily. 025 2024 Discontinued Active Problems Problem Noted [...] Encounters Date Type Department Care Team Description 01/16/2025 Refill [facility] CHC MED & PEDS [address] [facility] [place] [address] Christopher Wang MD 01/10/2025 Orders Only [facility] External Provider, [facility] 01/09/2025 Telephone [facility] CHC MED & PEDS [address] [facility] [place] [address] Christopher Wang MD 01/04/2025 Refill [facility] CHC MED & PEDS [address] [place] [address] Christopher Wang MD Type 2 diabetes mellitus without complications (HCC); Polyneuropathy, unspecified 12/09/2024 Refill [facility] MED & PEDS 505 [facility] [place] [address] Christopher Wang MD 12/09/2024 Refill [facility] MED & PEDS 505 [facility] [place] [address] Christopher Wang MD 11/22/2024 Travel 11/18/2024 8:00 AM EDT Office Visit [facility] ADULT DENTAL [address] [place] [address] Wayne Webb DDS 11/17/2024 2:45 PM EDT Office Visit [facility] MED & PEDS [address] [place] [address] Christopher Wang MD Gastroesophageal reflux disease, unspecified whether esophagitis present (Primary Dx); Encounter for immunization; Type 2 diabetes mellitus without complication, without long-term current use of insulin (HCC); Myasthenia gravis (HCC) 11/17/2024 Travel 11/16/2024 Telephone [facility] MED & PEDS [address] [place] [address] Christopher Wang MD Nurse Triage 11/14/2024 Orders Only GENERIC EXTERNAL DATA DEPARTMENT Provider, Generic External Data 11/14/2024 Refill [facility] MED & PEDS [address] [place] [address] Christopher Wang MD Peripheral nerve disease 10/28/2024 1:30 PM EDT Office Visit [facility] MED & PEDS [address] [place] [address] Christopher Wang MD Primary hypertension (Primary Dx); Myasthenia gravis (CMS/HCC); Type 2 diabetes mellitus without complication, without long-term current use of insulin (CMS/HCC) 10/28/2024 Travel 10/27/2024 Refill [facility] MED & PEDS [address] [place] [address] Christopher Wang MD 10/27/2024 Telephone [facility] MED & PEDS [address] [place] [address] Christopher Wang MD Chart Prep 10/25/2024 Patient Outreach [facility] MEDICINE [address] [place] [address] Christopher Wang MD Transition Of Care (Tcm) (HDF- scheduled) 10/21/2024 Telephone [facility] MED & PEDS [address] [place] [address] Christopher Wang MD Appointment Request 10/21/2024 Telephone [facility] MED & PEDS [address] [place] [address] Christopher Wang MD 10/19/[address] [address] Christopher Wang MD call back needed from Last 3 Months Immunizations Immunization Administration [...] 9:45 AM EST Office Visit [facility] CHC MED & PEDS [address] [place], [place] [phone] Christopher Wang MD [address] [place] [address] Health Maintenance Due Date Last Done Comments [...] X-Ray: [facility] 11/26/2024 11/26/19 24, 12/03/2021, 04/24/2014 Depression Monitoring 03/26/2025 09/23/2024, 025 [...] AUTO DIFFERENTIAL Routine 11/14/2024 12:22 PM EDT ALBUMIN, RANDOM URINE W/CREATININE Routine [...] PM EST Narrative 01/10/2025 2:22 PM EST [address] [address] [address] Scan Report Signed Patient: Blaine Do MR#: [id number] : 1955 Acct:[id number] Age/Sex: 69 / M ADM Date: 01/10/25 Loc: HO.CT Attending Dr: Steve Miner MD Ordering Physician: STEVE MINER MD Date of Service: 01/10/25 Procedure(s): CT urogram Accession Number(s): [id number] cc: Christopher Wang MD; STEVE MINER MD Report Number: [id number]: Total DLP = 1554.00 mGy-cm Reason for [...] 01/10/25 1419 DD/ 1328 TD/TT: 01/10/25 1358 Volunteer Patient Representative: Procedure Note Donotuseinterpreter, Image - 01/10/[address] [place] [address] [address] Scan Report Signed Patient: Myesha Do#: M [id number] : 8Acct:[id number] Age/Sex: 69 / MADM Date: 01/10/25 Loc: HO.CT Attending Dr: Steve Miner MD Ordering Physician: STEVE MINER MD Date of Service: 01/10/25 Procedure(s): CT urogram Accession Number(s): [id number] cc: Christopher Wang MD; STEVE MINER MD Report Number: [id number]: Total DLP = 1554.00 mGy-cm Reason for [...] 01/10/25 1419 DD/ 1328 TD/TT: 01/10/25 1358 Volunteer Patient Representative: [facility] External Provider IMG CT PROCEDURES Final Result * POCT Creatinine GFR (01/10/2025 1:18 PM EST) Pathologist [facility] POCT Creatinine 0.8 0.5 - 1.4 mg/dL [facility] GFR POC >60 [facility] Comment:Chronic Kidney Disea se: Estimated GFR < 60 mL/min/1.98x6Yncfxf Kidney Disease: Estimated GFR < 15 mL/min/1.73m2 01/10/2025 1:18 PM EST 01/10/2025 4:30 PM EST Narrative [facility] - 01/10/2025 4:32 PM EST [id number] Generic External Data Provider LAB POINT OF CARE TEST DOCKED DEVICE ORDERABLES Final Result [facility] [address] [place] [address] [phone] * POCT Hgb A1c (11/17/2024 3:03 PM EDT) Hemoglobin A1C 4.6 4.0 - 5.7 % QC Media Lot # [id number] Lot# Expiration Date Blood 11/17/2024 3:03 PM EDT Christopher Wang MD POINT OF CARE TEST ENTER/ED IT ORDERABLES Final Result * POCT Glucose (11/17/2024 3:02 PM EDT) Pathologist [facility] Glucose Blood, POC 130 60 - 200 mg/dL QC Media Lot # [id number] Lot# Expiration Date Comment:random Blood Capillary blood specimen / Unknown 11/17/2024 3:02 PM EDT Christopher Wang MD POINT OF CARE TEST ENTER/ED IT ORDERABLES Final Result * (ABNORMAL) CBC auto differential (11/14/2024 12:22 PM EDT) Pathologist [facility] White Blood Count 7.5 4.8 - 10.8 X10*3/uL [facility] Red Blood Count 3.76(L) 4.60 - 5.80 X10*6/uL [facility] Hemoglobin 12.6(L) 14.0 - 18.0 g/dl [facility] Hematocrit 38.5(L) 42.0 - 52.0 % [facility] Mean Corpuscular Volume 102.4(H) 80.0 - 98.0 fL [facility] Mean Corpuscular Hemoglobin 33.5(H) 27.0 - 33.0 pg [facility] Mean Corpuscular HGB Conc 32.7 31.0 - 36.0 g/dl [facility] Red Cell Distribution Width 15.4 11.0 - 16.0 % [facility] Platelet Count 185 160 - 400 X10*3/uL [facility] Mean Platelet Volume 10.2 9.4 - 12.4 fL [facility] Neutrophils Percent Auto 83.7(H) 45 - 73 % [facility] Imm Gran Pct Auto 0.5(H) 0.0 - 0.4 % [facility] Lymphocytes Percent Auto 10.4(L) 20 - 40 % [facility] Monocytes Percent Auto 4.8 2 - 11 % [facility] Eosinophils Percent Auto 0.3 0 - 4 % [facility] Basophils Percent Auto 0.3 0 - 2 % [facility] NRBC Pct Auto 0.0 0.0 - 0.2 /100WBC [facility] Neutrophils Absolute Auto 6.3 2.0 - 8.3 x10*3/uL [facility] Imm Gran Abs Auto 0.04(H) 0.00 - 0.03 X10*3/uL [facility] Lymphocytes Absolute Auto 0.8(L) 1.2 - 4.9 X10*3/uL [facility] Monocytes Absolute Auto 0.4 0.1 - 1.2 X10*3/uL [facility] Eosinophils Absolute Auto 0.0 0.0 - 0.4 X10*3/uL [facility] Basophils Absolute Auto 0.0 0.0 - 0.2 X10*3/uL [facility] NRBC Abs Auto 0.000 0.0 - 0.012 X10*3/uL [facility] 11/14/2024 12:2 2 PM EDT 11/14/2024 12:22 PM EDT us Generic External Data Provider LAB BLOOD ORDERAB LES Final Result [facility] [address] [place] [address] [phone] * Albumin, Random Urine W/Creatinine (04/11/2024 10:11 AM EST) Creatinine, Urine 77.42 mg/dL [facility] Microalbumin Urine 6.0 mg/L [facility] Microalbum Creatinine Ratio Ur 7.7 <30 ug/mg cr [facility] Comment:Albumin/Creatinine R atio Reference Ranges: Normal: < 30 ug/mg creatinine Microalbuminuria: 30 - 300 ug/mg creatinineClinical Albuminuria: > 300 ug/mg creatinine Urine (Urine, Random) 04/11/2024 10:11 AM EST 04/11/2024 2:41 PM EST us Christopher Wang MD LAB URINE ORDERABLES Final Result Performing Organization Address [facility] Co de Phone Number [facility] [address] [place] [phone] * Lipid Panel, Standard (04/11/2024 10:07 AM EST) Triglycerides 53 <150 mg/dL [facility] Comment:Desirable Triglyceri de: less than 150 mg/dLBorderline High Triglyceride 150-199 mg/dLHigh Triglyceride: 200-499 mg/dLVery High Triglyceride: greater than or equal to 5OO mg/dL Cholesterol 128 <200 mg/dL [facility] Comment:Desirable Cholestero l: less than 200 mg/dLBorderline High Cholesterol: 200-239 mg/dLHigh Cholesterol: greater than 239 mg/dL LDL Cholesterol Calculated 61 <100 mg/dL [facility] Comment:Desirable LDL: less than 100 mg/dLNear Optimal/Above Optimal LDL: 110- 129 mg/dLBorderline High LDL: 130-159 mg/dLHigh LDL: 160-189 mg/dLVery High LDL: greater than or equal to 190 mg/dL HDL Cholesterol 57 >40 mg/dL [facility] Comment:Desirable HDL: great er than 40 mg/dL Note: This HDL assay may give artificially low results in patients with liver disease. Blood Venous blood specimen / Unknown 04/11/2024 10:07 AM EST 04/11/2024 2:41 PM EST us Christopher Wang MD LAB BLOOD ORDERABLES Final Result Performing Organization Address [facility]/ZIP Co de Phone Number [facility] [address] [place] [phone] * HEPATITIS C AB W/REFL TO HCV RNA, QN, PCR (2021 9:35 AM EDT) HEPATITIS C ANTIBODY NON-REACT VERONICA NON-REACT VERONICA [facility] INDEX 0.01 <1.00 [facility] Comment: HCV antibody was non-reactive. There is no laboratory evidence of HCV infection. In most cases, no further action is required. However, if recent HCV exposure is suspected, a test for HCV RNA (test code 80267) is suggested. For additional information please refer to http://education.Teabox/faq/TGD42j6 (This link is being provided for informational/ educational purposes only.) 2021 9:35 AM EDT Christopher Wang MD HISTORICAL/NON ORDERABLE JENIFER BS Final Result [facility] from Last 3 Months or Most Recently Relevant to Health Maintenance [place] [address] [place] [address] MEDICARE REPLACEMENT PPO [facility] STAND ADULT Care Teams Production Line Solderer Relationship Specialty Start Date End Date Christopher Wang MD [address] [place] [phone] PCP - General Internal Medicine 08/23/19
--- OUTSIDE RECORDS SUMMARY | 2025-01-17 15:05 | XMS_ITS | Encounter Summary ---
Author Organization [employer] Address [address] [address] Care Team Providers Care Engraver Picture Name Role Phone Christopher Wang MD Primary Care Provider [phone] Reason for Visit * Reason Onset Date Comments Referral 04/29/2024 Encounter Details Date Type Department Care Team ([facility] st Contact Info) Description 04/29/2024 Telephone [facility] MEDICINE [address] [place] [address] Christopher Wang MD [address] [place] [address] Referral Social History Tobacco Use Types Packs/Day [...] and audiology referral. Pt changed insurance from [facility] to [facility] Medicare. Advised pt to call insurance to see in they cover appointment with [facility] audiology where referral was sent.Also stated to pt to call [facility] audiology if insurance states they will cover [...] Upcoming Encounters Date Type Department Care Team ([facility] st Contact Info) Description 02/22/2025 9:45 AM EST Office Visit [facility] MED & PEDS [address] [place] [address] Christopher Wang MD [address] [place] [address] documented as of this encounter Visit Diagnoses Not on filedocumented in this encounter Additional Health Concerns Assessment Noted Time PHQ-9 Depression Total Score: 1 12/24/19 24 1:52 PM EST documented as of this encounter Care Teams Engraver Picture Relationship Specialty Start Date End Date Christopher Wang MD [address] [place] [address] PCP - General Internal Medicine 08/23/19 documented as of this encounter
--- OUTSIDE RECORDS SUMMARY | 2025-01-17 15:05 | XMS_ITS | Encounter Summary ---
Author Organization [employer] Address [address] [place] [address] Care Team Providers Care Desulphurizer Operator Name Role Phone Christopher Wang MD Primary Care Provider [phone] [phone] Encounter Details Date Type Department Care Team (Late st Contact Info) Description 10/14/2022 Abstract [facility] MED & PEDS [address] [place] [address] Jordyn Ham [place] Social History Tobacco Use [...] 9:45 AM EST Office Visit [facility] MED & PEDS [address] [place] [address] Christopher Wang MD [address] [place] [address] documented as of this encounter Visit Diagnoses Not on filedocumented in this encounter Additional Health Concerns Assessment Noted Time PHQ-9 Depression Total Score: 0 03/04/19 23 9:18 AM EST documented as of this encounter Care Teams Desulphurizer Operator Relationship Specialty Start Date End Date Christopher Wang MD [address] [place] [address] PCP - General Internal Medicine 08/23/19 documented as of this encounter
--- OUTSIDE RECORDS SUMMARY | 2025-01-17 15:05 | XMS_ITS | Encounter Summary ---
Author Organization [employer] Address [address] [place] [address] 7 [place] [address] Care Team Providers Care Pecan Grower Name Role Phone Christopher Wang MD Primary Care Provider [phone] Reason for Referral * Consultation (Routine) - Closed Specialty Diagnoses / Procedures Referred By Contac t Referred To Contact Audiology Diagnoses Subjective hearing loss Terri Medellin MD [address] [place] [address] Phone: tel: fax: [facility] Audiology [address] Floor [place], [place] Phone: tel: fax: Referral ID Status Reason Start Date Expiration Date V isits Requested Visits Authorized [id number] Closed Specialty Services Required 11/12/2023 11/11/2024 1 1 Encounter Details Date Type Department Care Team (Late st Contact Info) Description 11/12/2023 Orders Only [facility] MED & PEDS [address] [place], [place] [phone] Terri Medellin MD [address] [place], [place] [phone] Subjective hearing loss (Primary Dx) Social History [...] 9:45 AM EST Office Visit [facility] MED & PEDS [address] [place] [address] Christopher Wang MD [address] [place] [address] Scheduled Referrals Name Type Priority Associated Diagnoses Orde r Schedule Referral to Audiology Outpatient Referral Routine Subjective hearing loss Expected: 11/12/2023 (Approximate), Expires: 11/11/2024 documented as of this encounter Visit Diagnoses Diagnosis Subjective hearing loss- Primary documented in this encounter Additional Health Concerns Assessment Noted Time PHQ-9 Depression Total Score: 0 03/04/19 23 9:18 AM EST documented as of this encounter Care Teams Pecan Grower Relationship Specialty Start Date End Date Christopher Wang MD [address] [place] [address] PCP - General Internal Medicine 08/23/19 documented as of this encounter
--- OUTSIDE RECORDS SUMMARY | 2025-01-17 15:05 | XMS_ITS | Encounter Summary ---
Author Organization [employer] Address [address] [place] [address] [address] [place] [address] Care Team Providers Care Instrumentation Technologist Name Role Phone Christopher Wang MD Primary Care Provider [phone] Reason for Visit * Reason Onset Date Comments Appointment 04/14/2022 Encounter Details Date Type Department Care Team (Late st Contact Info) Description 04/14/2022 Telephone [facility] ADULT DENTAL [address] [place] [address] Ronal Andrade, DMD [address] [place] [address] Appointment Social History Tobacco Use Types Packs/Day [...] Description 02/22/2025 9:45 AM EST Office Visit [facility] MED & PEDS [address] [place] [address] Christopher Wang MD [address] [place] [address] documented as of this encounter Visit Diagnoses Not on filedocumented in this encounter Additional Health Concerns Assessment Noted Time PHQ-9 Depression Total Score: 0 03/04/19 23 9:18 AM EST documented as of this encounter Care Teams Instrumentation Technologist Relationship Specialty Start Date End Date Christopher Wang MD [address] [place] [address] PCP - General Internal Medicine 08/23/19 documented as of this encounter
--- OUTSIDE RECORDS SUMMARY | 2025-01-17 15:05 | XMS_ITS | Encounter Summary ---
Author Organization [facility] Address [address] [place] [address] Care Team Providers Care Merchandise Coordinator Name Role Phone Christopher Wang MD Primary Care Provider [phone] Encounter Details Date Type Department Care Team (Late st Contact Info) Description 06/28/2024 Lab Requisition [facility] - Main Lab [address] [facility] [place] [phone] Steve Miner MD [address] [phone] Nodular prostate without lower urinary tract symptoms [...] Care Team (Late st Contact Info) Description 02/14/2025 10:30 AM EST Office Visit [facility] [place] [address] [facility] [address] [place] [phone] Barber Beatty DPM 175 [facility] [address] [place] [address] documented as of this encounter Procedures Procedure Name Priority Date/Time Associated Diagnosis Comments PROSTATE SPECIFIC ANTIGEN DIAGNOSTIC Routine 06/28/2024 9:09 AM EDT Nodular prostate without lower urinary tract symptoms documented in this encounter Results * Prostate specific antigen diagnostic (06/28/2024 9:09 AM EDT) PSA 0.45 0.00 - 4.00 ng/mL LAB CHEMISTRY METHOD 06/28/2024 2:10 PM EDT [facility] Blood Venous blood specimen / Unknown 06/28/2024 9:09 AM EDT 06/28/2024 12:51 PM EDT Narrative [facility] - 06/28/2024 2:10 PM EDT The Siemens Advia Centaur Chemiluminescent Immunoassay is used. Results obtained with different assay methods or kits cannot be used interchangeably. Results cannot be interpreted as absolute evidence of the presence or absence of malignant disease. 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
--- OUTSIDE RECORDS SUMMARY | 2025-01-17 15:05 | XMS_ITS | Encounter Summary ---
Author Organization [employer] Address [address] [place] [address] Care Team Providers Care Wig Maker Name Role Phone Christopher Wang MD Primary Care Provider [phone] Reason for Visit * Reason Comments Med Refill Encounter Details Date Type Department Care Team ([facility] st Contact Info) Description 11/14/2024 Refill [facility] CHC MED & PEDS [address] [place], [place] [phone] Christopher Wang MD [address] [place] [address] Peripheral nerve disease Social History Tobacco Use [...] Description 02/22/2025 9:45 AM EST Office Visit [facility] MED & PEDS [address] [place] [address] Christopher Wang MD [address] [place] [address] documented as of this encounter Visit Diagnoses Diagnosis Peripheral nerve disease Mononeuritis of unspecified site documented in this encounter Additional Health Concerns Assessment Noted Time PHQ-9 Depression Total Score: 10 025 3:14 PM EDT documented as of this encounter Care Teams Wig Maker Relationship Specialty Start Date End Date Christopher Wang MD [address] [place] [address] PCP - General Internal Medicine 08/23/19 documented as of this encounter
--- OUTSIDE RECORDS SUMMARY | 2025-01-17 15:05 | XMS_ITS | Encounter Summary ---
Author Organization [employer] Address [address] [place] [address] Care Team Providers Care Scrap Materials Buyer Name Role Phone Christopher Wang MD Primary Care Provider [phone] Reason for Visit * Reason Comments Med Refill Encounter Details Date Type Department Care Team ([facility] st Contact Info) Description 04/07/[address] [facility] CHC MED & PEDS [address] [place], [place] [phone] Christopher Wang MD [address] [place] [address] Primary hypertension (Primary Dx); Type 2 diabetes mellitus without complication, without long-term current use of insulin ([facility]); Vitamin B12 deficiency Social History [...] 9:45 AM EST Office Visit [facility] MED & PEDS [address] [place] [address] Christopher Wang MD [address] [place] [address] documented as of this encounter Visit Diagnoses Diagnosis Primary hypertension- Primary Unspecified essential hypertension Type 2 diabetes mellitus without complication, without long-term current use of insulin (HCC) Vitamin B12 deficiency Other B-complex deficiencies documented in this encounter Additional Health Concerns Assessment Noted Time PHQ-9 Depression Total Score: 0 03/04/19 23 9:18 AM EST documented as of this encounter Care Teams Scrap Materials Buyer Relationship Specialty Start Date End Date Christopher Wang MD [address] [place] [address] PCP - General Internal Medicine 08/23/19 documented as of this encounter
--- OUTSIDE RECORDS SUMMARY | 2025-01-17 15:06 | XMS_ITS | Encounter Summary ---
Author Organization [employer] Address [address] [place] [address] 7 [place] [address] Care Team Providers Care Machine Shop Inspector Name Role Phone Christopher Wang MD Primary Care Provider [phone] Encounter Details Date Type Department Care Team ([facility] st Contact Info) Description 10/23/2023 Orders Only [facility] CHC MED & PEDS [address] [place], [place] [phone] Christopher Wang MD [address] [place] [address] Bloating symptom Social History Tobacco Use Types [...] 02/22/2025 9:45 AM EST Office Visit [facility] CHC MED & PEDS [address] [place] [address] Christopher Wang MD [address] [place] [address] documented as of this encounter Visit Diagnoses Diagnosis Bloating symptom Flatulence, eructation, and gas pain documented in this encounter Additional Health Concerns Assessment Noted Time PHQ-9 Depression Total Score: 0 03/04/19 23 9:18 AM EST documented as of this encounter Care Teams Machine Shop Inspector Relationship Specialty Start Date End Date Christopher Wang MD [address] [place] [address] PCP - General Internal Medicine 08/23/19 documented as of this encounter
--- OUTSIDE RECORDS SUMMARY | 2025-01-17 15:06 | XMS_ITS | Encounter Summary ---
Author Organization [employer] Address [address] [place] [address] Care Team Providers Care Unit Manager Rn Name Role Phone Christopher Wang MD Primary Care Provider [phone] Reason for Visit * Reason Onset Date Comments Med Refill 07/13/2024 Encounter Details Date Type Department Care Team ([facility] st Contact Info) Description 07/13/2024 Refill [facility] CHC MED & PEDS [address] [place] [address] Christopher Wang MD [address] [place] [address] Type 2 diabetes mellitus without complication, without long-term current use of insulin ([facility]) Social History Tobacco Use Types Packs/Day Years [...] Upcoming Encounters Date Type Department Care Team ([facility] st Contact Info) Description 02/22/2025 9:45 AM EST Office Visit [facility] MED & PEDS [address] [place] [address] Christopher Wang MD [address] [place] [address] documented as of this encounter Visit Diagnoses Diagnosis Type 2 diabetes mellitus without complication, without long-term current use of insulin (HCC) documented in this encounter Additional Health Concerns Assessment Noted Time PHQ-9 Depression Total Score: 1 12/24/19 24 1:52 PM EST documented as of this encounter Care Teams Unit Manager Rn Relationship Specialty Start Date End Date Christopher Wang MD [address] [place] [address] PCP - General Internal Medicine 08/23/19 documented as of this encounter
--- OUTSIDE RECORDS SUMMARY | 2025-01-17 15:06 | XMS_ITS | Encounter Summary ---
Author Organization [employer] Address [address] [place] [address] Care Team Providers Care Scow Hand Name Role Phone Christopher Wang MD Primary Care Provider [phone] Reason for Visit * Reason Comments Med Refill Encounter Details Date Type Department Care Team ([facility] st Contact Info) Description 11/26/2023 Refill [facility] CHC MED & PEDS [address] [place], [place] [phone] Christopher Wang MD [address] [place] [address] Bloating symptom Social History Tobacco Use Types [...] 9:45 AM EST Office Visit [facility] CHC MED & PEDS [address] [place] [address] Christopher Wang MD [address] [place] [address] documented as of this encounter Visit Diagnoses Diagnosis Bloating symptom Flatulence, eructation, and gas pain documented in this encounter Additional Health Concerns Assessment Noted Time PHQ-9 Depression Total Score: 0 03/04/19 23 9:18 AM EST documented as of this encounter Care Teams Scow Hand Relationship Specialty Start Date End Date Christopher Wang MD [address] [place] [address] PCP - General Internal Medicine 08/23/19 documented as of this encounter
--- OUTSIDE RECORDS SUMMARY | 2025-01-17 15:06 | XMS_ITS | Encounter Summary ---
Author Organization [employer] Address [address] [place] [address] Care Team Providers Care Brick Tester Name Role Phone Christopher Wang MD Primary Care Provider [phone] Reason for Visit * Reason Onset Date Comments Med Refill 10/22/2023 Encounter Details Date Type Department Care Team ([facility] st Contact Info) Description 10/22/2023 Telephone [facility] MEDICINE [address] [place] [address] Christopher Wang MD [address] [place] [address] Med Refill Social History Tobacco Use Types [...] 10 MG tablet To be sent to: [facility] [place] - [address] [facility] documented in this encounter Plan of Treatment Upcoming Encounters Date Type Department Care Team ([facility] st Contact Info) Description 02/22/2025 9:45 AM EST Office Visit [facility] MED & PEDS [address] [place] [address] Christopher Wang MD 505 [facility] [address] documented as of this encounter Visit Diagnoses Not on filedocumented in this encounter Additional Health Concerns Assessment Noted Time PHQ-9 Depression Total Score: 0 03/04/19 23 9:18 AM EST documented as of this encounter Care Teams Brick Tester Relationship Specialty Start Date End Date Christopher Wang MD [address] [place] [address] PCP - General Internal Medicine 08/23/19 documented as of this encounter
--- OUTSIDE RECORDS SUMMARY | 2025-01-17 15:06 | XMS_ITS | Encounter Summary ---
Author Organization [employer] Address [address] [facility] 7 [place] [address] Care Team Providers Care Sewage Plant Operator Name Role Phone Christopher Wang MD Primary Care Provider [phone] Encounter Details Date Type Department Care Team ([facility] st Contact Info) Description 06/10/2023 Orders Only [facility] CHC MED & PEDS [address] [place], [place] [phone] Christopher Wang MD [address] [place] [address] Social History Tobacco Use Types Packs/Day Years [...] Description 02/22/2025 9:45 AM EST Office Visit [facility] CHC MED & PEDS [address] [place] [address] Christopher Wang MD [address] [place] [address] documented as of this encounter Visit Diagnoses Not on filedocumented in this encounter Additional Health Concerns Assessment Noted Time PHQ-9 Depression Total Score: 0 03/04/19 23 9:18 AM EST documented as of this encounter Care Teams Sewage Plant Operator Relationship Specialty Start Date End Date Christopher Wang MD [address] [place] [address] PCP - General Internal Medicine 08/23/19 documented as of this encounter
--- OUTSIDE RECORDS SUMMARY | 2025-01-17 15:06 | XMS_ITS | Encounter Summary ---
Author Organization [employer] Address [address] [place] [address] 7 [place] [address] Care Team Providers Care Welcome Wagon Host/Hostess Name Role Phone Christopher Wang MD Primary Care Provider [phone] Encounter Details Date Type Department Care Team ([facility] st Contact Info) Description 07/12/2024 Orders Only [facility] CHC MED & PEDS [address] [place], [place] [phone] Christopher Wang MD [address] [place] [address] Social History Tobacco Use Types Packs/Day Years [...] Description 02/22/2025 9:45 AM EST Office Visit [facility] MED & PEDS [address] [place] [address] Christopher Wang MD [address] [place] [address] documented as of this encounter Visit Diagnoses Not on filedocumented in this encounter Additional Health Concerns Assessment Noted Time PHQ-9 Depression Total Score: 1 12/24/19 24 1:52 PM EST documented as of this encounter Care Teams Welcome Wagon Host/Hostess Relationship Specialty Start Date End Date Christopher Wang MD [address] [place] [address] PCP - General Internal Medicine 08/23/19 documented as of this encounter
--- OUTSIDE RECORDS SUMMARY | 2025-01-17 15:06 | XMS_ITS | Encounter Summary ---
Author Organization [employer] Address [address] [place] [address] Care Team Providers Care Manager Of Change Name Role Phone Christopher Wang MD Primary Care Provider [phone] Reason for Visit * Reason Comments Med Refill Encounter Details Date Type Department Care Team ([facility] st Contact Info) Description 10/23/2023 Refill [facility] CHC MED & PEDS [address] [place], [place] [phone] Christopher Wang MD [address] [place] [address] Bloating symptom Social History Tobacco Use Types [...] Description 02/22/2025 9:45 AM EST Office Visit [facility] MED & PEDS [address] [place] [address] Christopher Wang MD [address] [place] [address] documented as of this encounter Visit Diagnoses Diagnosis Bloating symptom Flatulence, eructation, and gas pain documented in this encounter Additional Health Concerns Assessment Noted Time PHQ-9 Depression Total Score: 0 03/04/19 23 9:18 AM EST documented as of this encounter Care Teams Manager Of Change Relationship Specialty Start Date End Date Christopher Wang MD [address] [place] [address] PCP - General Internal Medicine 08/23/19 documented as of this encounter
--- OUTSIDE RECORDS SUMMARY | 2025-01-17 15:06 | XMS_ITS | Clinical Summary ---
Author Organization [facility] Address [address] [place] [address] Phone Care Team Providers Care Data Communications Engineer Name Role Phone Christopher Wang MD Primary Care Provider [phone] Allergies No known active allergies Medications acetaminophen [...] 1 Tablet by mouth at bedtime. 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, CMS/HCC V28) (Primary Dx); PAD (peripheral artery disease) (CMS/HCC V24); Difficulty walking; Achilles tendinitis of left lower extremity from Last 3 Months Immunizations Immunization Administration Dates Next Due Moderna [...] 08/02/2024 8:01 AM EDT Plan of Treatment Upcoming Encounters Date Type Department Care Team (Late st Contact Info) Description 02/14/2025 10:30 AM EST Office Visit Orthopedic Surgery - [place] [address] [facility] [address] [place] [phone] Barber Beatty, DPM 175 [facility] [address] [place] [address] Health Maintenance Due Date Last Done Comments Colorectal Cancer Screening: Colonoscopy 1955 Diabetes: Annual Foot Exam 06/25/1967 Diabetes: Annual Retina Eye Exam 06/25/1967 RSV Immunization Adult Patients (1 - Risk 50-74 years 1-dose series) 06/25/2007 Falls Risk Assessment 03/13/2023 Social Influencers of Health Screening 03/13/2023 Hepatitis B Vaccines (2 of 3 - 19+ 3-dose series) 09/24/2023 08/27/2023 Depression Screening 02/17/2024 Diabetes: Annual Urine Albumin-Creatinine Ratio (uACR) 05/31/2024 COVID-19 Vaccine ( season) 2024 04/18/2022, 01/15/2021, 05/16/2020, Additional history exists Diabetes: Blood Sugar Control Test (HGBA1C) 05/18/2025 11/17/2024, 06/23/2024, 04/11/2024, Additional history exists Diabetes: Annual GFR (Glomerular Filtration Rate) 09/24/2025 09/24/2024, 11/10/2023 Hypertension/CHF/CAD Annual BMP Blood Test 09/24/2025 09/24/2024, 11/10/2023 Cholesterol Screening (Lipid Panel) 04/11/2029 04/11/2024, 02/03/2023 DTaP,Tdap,and Td Vaccines (3 - Td or Tdap) 06/25/2031 2021, 07/27/2014 Hepatitis C Screening Completed 2021 Pneumococcal Vaccine: 50+ Years Completed 08/27/2023, 02/06/2020 Zoster Vaccines Completed 04/11/2024, 01/14/2021 Influenza Vaccine Completed 11/17/2024, , 11/09/2023, Additional history exists HIB Vaccines Aged Out [...] * Annual BMP Blood Test (11/10/2023) Pathologist [facility] Annual BMP Blood Test Abstracted Historical Provider HEALTH MAINTENANCE Final Result * Lipid panel (02/03/2023) Pathologist [facility] Triglycerides 0 mg/dL Comment:No interpretation Cholesterol 0 mg/dL Comment:No interpretation HDL 0 mg/dL Comment:No interpretation LDL Cholesterol 0 mg/dL Comment:No interpretation Blood Venous blood specimen / Unknown [facility] Provider LAB BLOOD ORDERABLES Eilzabeth l Result * Hemoglobin A1c (09/10/2022) [facility] Hemoglobin A1C 0.0 % Comment:No interpretation Blood Venous blood specimen / Unknown Historical Provider LAB BLOOD ORDERABLES Elizabeth l Result * Hepatitis C Screening (2021) Hepatitis C Screening Abstracted us Historical Provider HEALTH MAINTENANCE Final Result from Last 3 Months or Most Recently Relevant to Health Maintenance Insurance [place]ICAID - [place] [facility] Care Teams Data Communications Engineer Relationship Specialty Start Date End Date Christopher Wang MD [address] [place] [address] PCP - General 04/28/14
--- OUTSIDE RECORDS SUMMARY | 2025-01-17 15:06 | XMS_ITS | Encounter Summary ---
Author Organization [employer] Address [address] [place] [address] Care Team Providers Care Carton Filler Name Role Phone Christopher Wang MD Primary Care Provider [phone] Reason for Visit * Reason Comments Med Refill Encounter Details Date Type Department Care Team ([facility] st Contact Info) Description 06/14/2024 Refill [facility] MEDICINE [address] [place] [address] Christopher Wang MD [address] [place] [address] Social History Tobacco Use Types Packs/Day Years [...] Description 02/22/2025 9:45 AM EST Office Visit [facility] CHC MED & PEDS [address] [place] [address] Christopher Wang MD [address] [place] [address] documented as of this encounter Visit Diagnoses Not on filedocumented in this encounter Additional Health Concerns Assessment Noted Time PHQ-9 Depression Total Score: 1 12/24/19 24 1:52 PM EST documented as of this encounter Care Teams Carton Filler Relationship Specialty Start Date End Date Christopher Wang MD [address] [place] [address] PCP - General Internal Medicine 08/23/19 documented as of this encounter
--- OUTSIDE RECORDS SUMMARY | 2025-01-17 15:06 | XMS_ITS | Encounter Summary ---
Author Organization [employer] Address [address] [place] [address] 7 [place] [address] Care Team Providers Care Bilingual Teacher Assistant Name Role Phone Christopher Wang MD Primary Care Provider [phone] Encounter Details Date Type Department Care Team ([facility] st Contact Info) Description 09/29/2023 Orders Only [facility] CHC MED & PEDS [address] [place], [place] [phone] Christopher Wang MD [address] [place] [address] Gastroesophageal reflux disease, unspecified whether esophagitis present [...] [facility] [place] MED & PEDS [address] [place] [address] Christopher Wang MD [address] [place] [address] documented as of this encounter Visit Diagnoses Diagnosis Gastroesophageal reflux disease, unspecified whether esophagitis present- Primary documented in this encounter Additional Health Concerns Assessment Noted Time PHQ-9 Depression Total Score: 0 03/04/19 23 9:18 AM EST documented as of this encounter Care Teams Bilingual Teacher Assistant Relationship Specialty Start Date End Date Christopher Wang MD [address] [place] [address] PCP - General Internal Medicine 08/23/19 documented as of this encounter
--- OUTSIDE RECORDS SUMMARY | 2025-01-17 15:06 | XMS_ITS | Encounter Summary ---
Author Organization [employer] Address [address] [place] [address], [place] [address] Care Team Providers Care Pit Recorder Name Role Phone Christopher Wang MD Primary Care Provider [phone] Encounter Details Date Type Department Care Team (Latest Contact Info) Description 12/30/2021 Abstract [facility] CONVERSIONS Dental, Provider, DDS Social History [...] 9:45 AM EST Office Visit [facility] CHC MED & PEDS [address] [place] [address] Christopher Wang MD [address] [place] [address] documented as of this encounter Visit Diagnoses Not on filedocumented in this encounter Care Teams Pit Recorder Relationship Specialty Start Date End Date Christopher Wang MD [address] [place] [address] PCP - General Internal Medicine 08/23/19 documented as of this encounter
== END 2025-01-17 14:02 | disposition home or self-care (01) ==
LOC: HO.HSM 13:10
PROVIDERS: PCP Internal Medicine; Visit Provider Psychiatry & Neurology Neurology
DX: G70.00 Myasthenia gravis without (acute) exacerbation (principal)
CPT/HCPCS: 99214

== ENCOUNTER → 2025-01-17 13:10 | Outpatient (BNVA) | payer MEDICARE, SELFPAY | PROVIDERS: PCP Internal Medicine; Visit Provider Psychiatry & Neurology Neurology | DX: G70.00 Myasthenia gravis without (acute) exacerbation (principal); Z79.899 Other long term (current) drug therapy | CPT/HCPCS: 99212 ==